=== PATIENT | male | born 1965 | race Caucasian/White ===

== ENCOUNTER 2018-04-27 06:45 | Emergency (ER) | payer BC, SELFPAY ==
[2018-04-27] VITALS (85 sets, daily range): BP systolic 92–134; BP diastolic 56–99; PULSE 50–148; RESP 11–33; TEMP 36.7; O2SAT 93–99
--- NOTE | 2018-04-27 07:16 | ED.GENADUL ---
Disposition Clinical Impression: Atrial fibrillation with rapid ventricular response, Chest pain, History of coronary artery stent placement Disposition: HOME Condition: Stable Instructions: Atrial Fibrillation (ED), Chest Pain (ED) Additional Instructions: Drink plenty of fluids and get plenty of rest. Take your regular medications as directed. Follow-up with your scheduled appointment with cardiology next week. Return immediately to the emergency department any worsening or new concerning symptoms. Medical Decision Making - EKG Data -: EKG Interpreted by Me 04/27/18 07:18 Atrial fibrillation with a rate of 108, QRS is narrow, there is no ST segment elevation - Medical Decision Making 52-year-old male presents with rapid atrial fibrillation. Stable. Placed on diltiazem drip with rate stabilization. Signed out to Dr. Renae pending further diagnostics and final disposition History of Present Illness - General Chief complaint: Chest Pain Stated complaint: CHEST PRESSURE/SOB Time Seen by Provider: 04/27/18 06:50 Source: patient, RN notes reviewed Mode of arrival: ambulatory Limitations: no limitations - History of Present Illness Initial comments: Chest pain and palpitations: 52-year-old male with a history of coronary artery disease as well as paroxysmal atrial fibrillation for which he is anticoagulated with Eliquis. He states he developed the abrupt onset of chest pressure in the substernal that has been constant, moderate, nonradiating and associated with palpitations consistent with previous episodes of atrial fibrillation. He is not otherwise recently been ill. Denies fever. No recent cough. No weight gain or peripheral swelling History of coronary artery disease, hypertension, hyperlipidemia. History of stroke with right-sided hemiplegia. Myocardial perfusion scan April 05. Moderate size, moderately intense, fixed defect in the description of RCA distribution of inferolateral wall. Ejection fraction 49%. - Related Data Lansoprazole [Prevacid] 30 mg PO DAILY 06/18/13 Nitroglycerin [Nitrostat] 1 tab SL Q5 MIN PRN X3 PRN 10/17/13 Bupropion HCl [Bupropion HCl Sr] 300 mg PO DAILY 10/16/15 Isosorbide Mononitrate [Isosorbide Mononitrate ER] 120 mg PO DAILY 10/16/15 Aspirin 81 mg PO DAILY #90 tab-cap 04/22/17 Multivitamin [Multivitamins] 1 each PO DAILY 04/28/17 Ascorbic Acid [Vitamin C] 1,000 mg PO DAILY 07/18/17 Metoprolol Succinate 25 mg PO DAILY #90 tab-cap 07/21/17 Pravastatin [Pravachol] 80 mg PO DAILY 11/17/17 Apixaban [Eliquis] 5 mg PO BID 30 Days #60 tablet 02/24/18 Sertraline [Zoloft] 25 mg PO DAILY #30 tab 03/16/18 Allergies Allergy/AdvReac Type Severity Reaction Status Date / Time atorvastatin calcium AdvReac Intermediate liver Unverified 04/28/18 10:22 [From Lipitor] problems niacin AdvReac Mild flushing Unverified 04/28/18 10:22 adhesive from monitor tabs Allergy Intermediate jones Uncoded 04/28/18 10:22 Review of Systems Other: 6 systems reviewed, otherwise negative Past Medical History - Past Medical History Medical history: AFIB, CAD, cancer (renal cell), CVA/TIA (Left MCA stroke March 2017), GERD, hyperlipidemia, hypertension Surgical history: angioplasty/stent (8 cardiac stents), appendectomy, herniorraphy, other (Carpal tunnel release, back surgery, L partial nephrectomy) Family history: CAD/UT - Social History Alcohol use: none Drug use: none General Exam - General Limitations: no limitations General appearance: alert, in no apparent distress - Head Head exam: Present: atraumatic, normocephalic - Eye Eye exam: Present: PERRL, EOMI - ENT ENT exam: Present: normal exam - Respiratory Respiratory exam: Present: normal lung sounds bilaterally. Absent: respiratory distress - Cardiovascular Cardiovascular Exam: Present: tachycardia, irregular rhythm - GI/Abdominal GI/Abdominal exam: Present: soft. Absent: distended, tenderness - Extremities Exam Extremities exam: Present: normal inspection - Neurological Exam Neurological exam: Present: alert, oriented X3 - Psychiatric Psychiatric exam: Present: normal affect, normal mood - Skin Skin exam: Present: warm, dry, intact Course Vital Signs - 24 hr 04/27/18 06:52 Temperature 36.7 C Pulse 118 H Blood Pressure 117/78 Pulse Oximetry 97
[2018-04-27 07:23] LABS: Abs Immature Grans 0.02 k/cumm (0.0-0.09); Absolute Basophil Count 0.04 k/cumm (0.0-0.2); Absolute Lymphocyte Count 2.37 k/cumm (1.2-3.4); Absolute Monocyte Count 0.72 k/cumm (0.11-0.7); Basophils % 0.4; Eosinophils % 2.2; HCT 39.7 % (40.0-50.0); HGB 13.6 g/dL (13.5-17.5); Immature Grans % 0.2; Lymphocytes % 26.5; Mean Corp. HGB Concentration 34.3 g/dL (32.0-36.0); Mean Corpuscular Hemoglobin 31.3 pg (27.0-33.0); Mean Corpuscular Volume 91.3 fL (80-95); Mean Platelet Volume 9.8 fL (8.0-11.0); Neutrophils % 62.7; Platelet Count 258 x1000/uL (130-400); RBC 4.35 m/cumm (4.50-6.00); White Blood Cell Count 8.95 k/cumm (4.4-10.8)
--- NOTE | 2018-04-27 07:24 | PDOC.ERCMPRO ---
Care Management Progress Note 04/27-Adams requested that I call his Carmen, [phone] and let her know that he is in the ED in Afib. Called Carmen with above information. Carmen stated to call her back to keep her posted.
[2018-04-27 07:36] LABS: ALT 23 U/L (12-78); AST 18 U/L (15-37); Albumin 3.4 g/dL (3.4-5.0); Alkaline Phosphatase 86 U/L (46-116); Anion Gap 9.6 mmol/L (3-11); BUN 18 mg/dL (7-18); Bilirubin, Total 0.2 mg/dL (0.2-1.0); CO2 24.4 mmol/L (21.0-32.0); CREATININE 1.17 mg/dL (0.70-1.30); Calcium 8.8 mg/dL (8.5-10.1); Chloride 104 mmol/L (98-107); Glucose 115 mg/dL (70-100); Potassium 4.1 mmol/L (3.5-5.1); Sodium 138 mmol/L (136-145); Total Protein 7.1 g/dL (6.4-8.2)
[2018-04-27] MEDS: Normal Saline 500 ML IV (07:39)
[2018-04-27 07:49] LABS: NT-proBNP 123 pg/mL
[2018-04-27 07:56] LABS: Troponin I < 0.02 ng/mL (0.00-0.06)
[2018-04-27 07:57] LABS: D-Dimer 427 ng/mlFEU (<500)
[2018-04-27 08:07] LABS: PTT Activated 31.2 sec (21.0-31.4); Prothrombin Time 9.9 sec (9.3-10.8)
--- NOTE | 2018-04-27 08:20 | DI.REPORT_ITS ---
SYMPTOM/DIAGNOSIS: CP, SOB, R/O ACUTE DISEASE PORTABLE CHEST: Comparison is made with 15 March 2018. The heart size is normal. The lungs are suboptimally inflated but appear clear. Leads overlie the chest. IMPRESSION: No acute abnormality.
[2018-04-27] MEDS: Normal Saline 1,000 ML 100 ML IV (08:40)
[2018-04-27] MEDS: MORPHine 10 MG/ML VIAL 2 MG IVP (08:42)
--- NOTE | 2018-04-27 08:51 | ED.FU_ITS ---
Disposition Clinical Impression: Atrial fibrillation with rapid ventricular response, Chest pain, History of coronary artery stent placement Disposition: HOME Condition: Stable Instructions: Atrial Fibrillation (ED), Chest Pain (ED) Additional Instructions: Drink plenty of fluids and get plenty of rest. Take your regular medications as directed. Follow-up with your scheduled appointment with cardiology next week. Return immediately to the emergency department any worsening or new concerning symptoms. Medical Decision Making - Lab Data Laboratory Tests 04/27/18 04/27/18 04/27/18 06:55 06:55 06:55 WBC RBC Hgb Hct MCV MCH MCHC RDW Plt Count MPV Immature Gran % Neutrophils % Lymphocytes % Monocytes % Eosinophils % Basophils % Absolute Neutrophils Absolute Lymphocytes Absolute Monocytes Absolute Eosinophils Absolute Basophils PT 9.9 INR 1.0 APTT 31.2 D-Dimer 427 Sodium 138 Potassium 4.1 Chloride 104 Carbon Dioxide 24.4 Anion Gap 9.6 BUN 18 Creatinine 1.17 Estimated GFR/1.73 m2 >= 60.00 Glucose 115 H Calcium 8.8 Magnesium 2.0 Total Bilirubin 0.2 AST 18 ALT 23 Alkaline Phosphatase 86 Troponin I < 0.02 NT-Pro-B Natriuret Pep 123 Total Protein 7.1 Albumin 3.4 04/27/18 06:55 WBC 8.95 RBC 4.35 L Hgb 13.6 Hct 39.7 L MCV 91.3 MCH 31.3 MCHC 34.3 RDW 14.0 Plt Count 258 MPV 9.8 Immature Gran % 0.2 Neutrophils % 62.7 Lymphocytes % 26.5 Monocytes % 8.0 Eosinophils % 2.2 Basophils % 0.4 Absolute Neutrophils 5.60 Absolute Lymphocytes 2.37 Absolute Monocytes 0.72 H Absolute Eosinophils 0.20 Absolute Basophils 0.04 PT INR APTT D-Dimer Sodium Potassium Chloride Carbon Dioxide Anion Gap BUN Creatinine Estimated GFR/1.73 m2 Glucose Calcium Magnesium Total Bilirubin AST ALT Alkaline Phosphatase Troponin I NT-Pro-B Natriuret Pep Total Protein Albumin 04/27/18 0650: 108bpm. Atrial fibrillation. Incomplete right bundle branch block. No acute ST elevation or depression. 04/27/18 1244: 56 bpm. Sinus bradycardia cardia. Incomplete right bundle branch block. No acute ST elevation or depression. - Radiology Data Radiology results: report reviewed, image reviewed CXR: negative - Medical Decision Making Please see Dr. Christy's note for initial presentation, exam and plan. Adams is a 52-year-old male with extensive cardiac history including 8 coronary stents, NM, hypertension, hyperlipidemia, atrial fibrillation on Eliquis who presented with chest and back pain and nausea since this morning at work. Noted to be in A. fib with RVR on arrival. EKG noted a rate of 108, A. fib, right bundle branch block but no acute ST elevation or depression. Troponin and d-dimer negative. Remainder of labs essentially unremarkable. Patient has had intermittent low blood pressure with systolic of 90s. Patient was given 1L IV fluids. Cardizem bolus held due to low blood pressure. Patient on a Cardizem drip at 5. Heart rate now ranging between 80s and 120s. Will continue Cardizem drip. Patient also complaining of continued chest pain without relief after 1 dose of nitro. Will continue IV fluids at 100 cc an hour. Will give a dose of morphine and start nitro drip if blood pressure tolerates. We will also add chest x-ray. 2044 -- Case discussed with hospitalist Dr. Avery -accepts patient for admission. 1015 -- Heart rate now 50s and converted to sinus. Cardizem drip stopped. Patient is still complaining of pain and nitro drip now at 10. Systolic blood pressure 110s. 1220 -- patient is complaining of return of chest pain. Will repeat an EKG and troponin now. Patient states he is followed by cardiology Dr. Saleem. . Heart rate 40s-50s which patient states is unusual for him as he is usually 60s- 70s. Systolic blood pressure 100. Will call cardiology for recommendations. Second troponin negative. EKG notes rate of 56 and sinus bradycardia and no acute ST elevation or depression. 134 --discussed with [facility] cardiology Dr. Robin -states it is reassuring with passing recent stress test negative for ischemia with noting a fixed defect, 2 negative troponins within a 12 hour period considering cardiac stress due to atrial fibrillation, this is reassuring for ruling out coronary etiology. Can consider a third troponin. Can also consider atypical causes of chest pain and consider getting a GI cocktail. Results were discussed with the patient regarding second negative troponin and EKG and discuss with cardiology and patient states he would rather go home. Patient is refusing third troponin. Patient was again offered admission and he declines. Risks of disability due to a serious cardiac pathology explained and patient fully understands and would still like to leave and demonstrates capacity to make decisions. Patient states he lives close by and will come back immediately with any concerns. Patient states he can follow-up with cardiology tomorrow morning. We discussed with Sandro from cardiology office and there is no community health agent available tomorrow but will arrange for follow-up appointment for next week. Vital stable prior to discharge. Heart rate 60. Blood pressure 115/77. Patient given GI cocktail he denies chest pain. Care Signed Out By:: Dr. Christy - Vital Signs Recent Vitals - 8H: Vital Signs - 8 hr 04/27/18 04/27/18 04/27/18 06:47 06:50 06:52 Temperature 98.1 F Pulse 118 H Respiratory 18 17 18 Rate Blood Pressure 117/78 Pulse Oximetry 99 97 97 04/27/18 04/27/18 04/27/18 07:00 07:01 07:10 Temperature Pulse 84 Respiratory 12 17 22 Rate Blood Pressure 116/77 Pulse Oximetry 93 L 94 L 95 04/27/18 04/27/18 04/27/18 07:16 07:20 07:24 Temperature Pulse 59 L Respiratory 18 23 18 Rate Blood Pressure 114/99 Pulse Oximetry 96 04/27/18 04/27/18 04/27/18 07:30 07:31 07:40 Temperature Pulse 75 Respiratory 27 H 25 H 22 Rate Blood Pressure 116/61 Pulse Oximetry 97 96 97 04/27/18 04/27/18 04/27/18 07:46 07:50 07:55 Temperature Pulse 75 75 Respiratory 27 H 33 H 21 Rate Blood Pressure 104/76 93/67 Pulse Oximetry 93 L 94 L 95 04/27/18 08:00 Temperature Pulse Respiratory 20 Rate Blood Pressure Pulse Oximetry - Continuation of Care Continuation of Care Plan: Case endorsed to follow-up on labs and imaging with plan for admission to ICU for A. fib with RVR on diltiazem drip.
--- NOTE | 2018-04-27 09:56 | NUR.NOTE ---
Nursing Note: Rhythm converted from afib to SR at 0941. HR noted to be 53, BP 105/72. Dr. Monroe notified of rhythm change and HR. Diltiazem infusion stopped per MD. Patient reports lessening of CP, now 01/03; remains substernal and in back between shoulder blades (site unchanged since arrival to ED today).
--- NOTE | 2018-04-27 12:14 | NUR.NOTE ---
Nursing Note: Patient reports pain currently 0. Was briefly back up to 2 at 1145, but back to [address] Monroe notified. Order to pause nitro infusion to assess tolerance. Nitro now off. Mr. Anne ate full [employer] lunch
[2018-04-27 13:11] LABS: Troponin I < 0.02 ng/mL (0.00-0.06)
== END 2018-04-27 14:45 | disposition home or self-care (01) ==
PROVIDERS: Emergency Medicine; Emergency Provider Physician Assistant; PCP Internal Medicine
DX: I48.91 Unspecified atrial fibrillation (principal); I47.2 Ventricular tachycardia; R07.9 Chest pain, unspecified; R00.2 Palpitations; I95.9 Hypotension, unspecified; I25.10 Atherosclerotic heart disease of native coronary artery without angina pectoris; Z95.5 Presence of coronary angioplasty implant and graft; I10 Essential (primary) hypertension; Z53.29 Procedure and treatment not carried out because of patient's decision for other reasons
CPT/HCPCS: 36415; 80053; 93005; 96361; 96365; 96366; 96367; 96375; 99285; 71045; 83735; 83880; 84484; 85025; 85379; 85610; 85730; 93010; J2270

== ENCOUNTER 2018-05-09 08:04 | Emergency (ER) | payer BC, MEDICARE, SELFPAY ==
[2018-05-09] VITALS (54 sets, daily range): BP systolic 102–123; BP diastolic 64–94; PULSE 49–66; RESP 12–24; TEMP 36.7; O2SAT 93–100
--- NOTE | 2018-05-09 08:25 | ED.GENADUL_ITS ---
Disposition Clinical Impression: Recurrent chest pain, Chronic headache Disposition: HOME Condition: Good Instructions: Chest Pain (ED), General Headache (ED) Additional Instructions: [facility] today to have your s[facility]ol prescription filled. Take your other regular medications as directed. Take your nitro that you have for your chronic chest pain as needed and directed. Follow-up with your scheduled appointment with Dr. Corral in 2 days and with cardiology on 05/25/18. Return to the emergency department with any worsening or new concerning symptoms. Medical Decision Making - Lab Data Laboratory Tests 05/09/18 05/09/18 05/09/18 08:14 08:14 12:13 WBC 9.95 RBC 4.61 Hgb 14.1 Hct 41.5 MCV 90.0 MCH 30.6 MCHC 34.0 RDW 13.9 Plt Count 237 MPV 9.7 Immature Gran % 0.2 Neutrophils % 60.2 Lymphocytes % 28.3 Monocytes % 8.7 Eosinophils % 2.1 Basophils % 0.5 Absolute Neutrophils 5.98 Absolute Lymphocytes 2.82 Absolute Monocytes 0.87 H Absolute Eosinophils 0.21 Absolute Basophils 0.05 Sodium 140 Potassium 4.4 Chloride 104 Carbon Dioxide 26.4 Anion Gap 9.6 BUN 15 Creatinine 1.04 Estimated GFR/1.73 m2 >= 60.00 Glucose 118 H Calcium 8.7 Magnesium 1.6 L Total Bilirubin 0.2 AST 15 ALT 21 Alkaline Phosphatase 74 Troponin I < 0.02 < 0.02 Total Protein 6.8 Albumin 3.3 L Lipase 147 - EKG Data -: EKG Interpreted by Nc 05/09/18 08:08 57bpm. Sinus bradycardia. No acute ST elevation or depression. No old EKG to compare. - Radiology Data Radiology results: report reviewed, image reviewed CT head: Left sphenoid sinus opacification otherwise no acute findings. Chest x-ray: Negative - Medical Decision Making 0810 -- 52-year-old male with extensive ASCVD and 8 cardiac stents, R MCA cva, Afib on eliquis, GERD, renal mass s/p L partial nephrectomy with multiple frequent ED visits to here as well as [facility] for related chest pain and headache who presents with substernal chest pain with radiation to his back and aching pain down both arms and posterior occipital headache this morning. Patient was seen here on 04/27 and had negative cardiac workup. Patient was also seen here on 04/28 and was admitted for ongoing chest pain and right-sided weakness and had negative troponins, stable EKG, negative CT a chest, negative CT head and MRI brain. They had recommended GI follow-up but patient did not follow-up yet. He had a stress test in March 2018 which noted a fixed defect but no ischemia. Patient was also seen at [facility] ED and admitted on 05/01 and had a nuclear pharmacologic stress test which noted a fixed inferior infarct but no ischemia. Patient had Ranexa and sotalol added to his medication regimen. Patient states he did not fill the sotalol and his metoprolol was stopped. He did not inform cardiology that he is not taking his sotalol. EKG today no acute ischemic changes. He appears nontoxic and in no acute distress. There is no diaphoresis. There are no focal deficits. Considering patient's extensive history, will do a cardiac workup, chest x-ray and CT head. Patient is declining MRI brain. I discussed the plan with patient, especially regarding his frequent visits for similar complaint with 2 recent negative stress tests for ischemia, multiple negative troponins, negative CT head, negative MRA brain, negative CTA chest, the consideration of follow-up with cardiology for continue monitoring of his chronic chest pain. I discussed case with care management Kathy and she will discuss with cardiology. Patient had declined nitro due to his blood pressure. His systolic blood pressure is 106. I will order patient fluids and nitro. 929 -- discussed with care management Kathy -she states Sandro from cardiology saw patient in the office this morning but there was no access service representative available. Patient had declined taking nitro at that time due to his low blood pressure. They have arrange for follow-up appointment with patient for May 25. Kathy will arrange for [facility] to help patient with his prescription for sotalol. 0934 -- labs and imaging reviewed. Troponin negative. Magnesium 1.6. Will replete. No other acute significant findings. Chest x-ray and CT head negative for acute findings. CT had noted left sphenoid sinus opacification. 0943 -- no relief of chest pain after 2 nitro. Will order GI cocktail. 1050 -- Pt sleeping on re-eval. He denies any change in his chest pain after awakening. Denies relief after GI cocktail. Pt appears comfortable. He is questioning his BP and why it fluctuates. Explained to pt that his BP has been stable here 110s/80s - review of [facility] records last week noted his BP ranged from 80s-110s/40s-80s. 1300 --second troponin negative. Patient denies any acute complaints at this time and is declining admission and would like to go home. Patient states he mainly came to make sure he was not in A. fib. His heart rate and rhythm had remained stable while here in the emergency department with a rate between 50s and 60s and normal sinus which is his baseline. He is instructed to go directly to [facility] per Kathy for his sotalol. He was encouraged that he needs to take this especially if he is concerned about his A. fib. Instructed to follow-up with his primary care doctor appointment in 2 days and cardiology appointment on 05/25 and to return here with any concerns. He also stated that he has a history of ulcer on EGD by Dr. Marinelli in the past year. He is instructed to follow-up with GI as recommended on his last admission for reevaluation of this as this could also be contributing to his chronic chest pain. He states he takes Prevacid daily. History of Present Illness - General Chief complaint: Chest Pain Stated complaint: CHEST PAIN Time Seen by Provider: 05/09/18 08:09 Source: patient Mode of arrival: ambulatory Limitations: no limitations - History of Present Illness Initial comments: Patient is a 52-year-old male well-known to the emergency department for multiple ED visits and admissions for chest pain and headache related complaints with a history of 8 cardiac stents and extensive ASCVD, A. fib on Eliquis, right MCA stroke, GERD, renal mass status post left partial nephrectomy , and chronic back pain who presents for sharp substernal and dull pressure- like chest pain with radiation to his back that started while sitting at home this morning. Pain is currently 8/10. Patient frequently has similar pain. Patient was seen here in the ED on 04/27/18 for A. fib and subsequently converted to sinus rhythm and had 2 negative troponins; patient had a stress test on 04/12 but noted a fixed defect and no ischemia and case was discussed with cardiology and patient was subsequently discharged home. Patient returned to the ED on 04/28 the following day after directed by his PCP Dr. Corral for ongoing chest pain as well as right-sided weakness and was admitted with negative troponins, stable EKG, negative CT chest negative CT head and MRI brain and was recommended for GI follow-up for recurrent chest pain. Patient also then went to [facility] ED on 05/01/18 for ongoing chest pain and was admitted with multiple negative troponins and a nuclear pharmacologic stress test which noted a fixed inferior infarct but no ischemia. Patient had Ranexa added to his medication regimen and was stopped on his metoprolol and started on sotalol. Patient states he did not fill his sotalol due to the expensive cost. Patient states he did not call cardiology at [facility] or his own access service representative Dr. jasbir Ribera to state that he did not start his sotalol. Patient today again admits to substernal chest pain with radiation to his back. He is also complaining of aching pain down both arms. He states this feels similar to his usual chest pain that he has from time to time. Patient is also complaining of posterior occipital headache that radiates around to both sides of his head. He denies blurry vision, nausea, vomiting, shortness of breath or unilateral weakness or numbness. - Related Data Lansoprazole [Prevacid] 30 mg PO DAILY 06/18/13 Nitroglycerin [Nitrostat] 1 tab SL Q5 MIN PRN X3 PRN 10/17/13 Bupropion HCl [Bupropion HCl Sr] 300 mg PO DAILY 10/16/15 Isosorbide Mononitrate [Isosorbide Mononitrate ER] 120 mg PO DAILY 10/16/15 Aspirin 81 mg PO DAILY #90 tab-cap 04/22/17 Multivitamin [Multivitamins] 1 each PO DAILY 04/28/17 Ascorbic Acid [Vitamin C] 1,000 mg PO DAILY 07/18/17 Apixaban [Eliquis] 5 mg PO BID 30 Days #60 tablet 02/24/18 Ranolazine [Ranexa] 500 mg PO BID 05/09/18 Rosuvastatin Calcium 40 mg PO DAILY 05/09/18 Sotalol [Betapace] 80 mg PO BID 05/09/18 Allergies Allergy/AdvReac Type Severity Reaction Status Date / Time atorvastatin calcium AdvReac Intermediate liver Unverified 05/09/18 08:19 [From Lipitor] problems niacin AdvReac Mild flushing Unverified 05/09/18 08:19 adhesive from monitor tabs Allergy Intermediate jones Uncoded 05/09/18 08:19 Review of Systems Constitutional: denies: chills, fever Eyes: denies: eye pain ENT: denies: ear pain, dental pain Respiratory: shortness of breath. denies: cough Cardiovascular: chest pain. denies: dyspnea on exertion Gastrointestinal: denies: abdominal pain, nausea, vomiting Genitourinary: denies: urgency, dysuria, frequency Musculoskeletal: denies: back pain Skin: denies: rash, lesions Neurological: headache. denies: weakness, numbness Past Medical History - Past Medical History Medical history: AFIB, CAD, cancer (renal cell), CVA/TIA (Left MCA stroke March 2017), GERD, hyperlipidemia, hypertension Surgical history: angioplasty/stent (8 cardiac stents), appendectomy, herniorraphy, other (Carpal tunnel release, back surgery, L partial nephrectomy) Family history: CAD/UT - Social History Smoking status: current everyday smoker Alcohol use: none Drug use: none General Exam - General Limitations: no limitations General appearance: alert, in no apparent distress - Eye Eye exam: Present: PERRL, EOMI - ENT ENT exam: Present: normal orophraynx, mucous membranes moist - Neck Neck exam: Present: normal inspection - Respiratory Respiratory exam: Present: normal lung sounds bilaterally. Absent: respiratory distress, wheezes, rales, rhonchi, stridor - Cardiovascular Cardiovascular Exam: Present: normal rhythm, bradycardia - GI/Abdominal GI/Abdominal exam: Present: soft, normal bowel sounds. Absent: distended, tenderness, guarding, rebound, rigid - Neurological Exam Neurological exam: Present: alert, oriented X3, CN II-XII intact. Absent: motor sensory deficit - Psychiatric Psychiatric exam: Present: normal affect - Skin Skin exam: Present: warm, dry, intact Course Vital Signs - 24 hr 05/09/18 05/09/18 08:12 08:17 Temperature 98.1 F Pulse 58 L Respiratory 16 21 Rate Blood Pressure 115/70 Pulse Oximetry 97
--- NOTE | 2018-05-09 08:32 | DI.RPTCT_ITS ---
SYMPTOM/DIAGNOSIS: HEADACHE, BASE OF SKULL, H/O RT MCA STROKE, R/O ACUTE CVA NONCONTRAST HEAD CT: Comparison is made with 28 Apr 2018. No intracranial hemorrhage, mass or infarct is seen. There is no evidence of skull fracture. The ventricles are normal in size. There is subtotal opacification of the left sphenoid sinus. There is a small amount of mucus retention noted in the right maxillary sinus, partially included on the exam. The mastoid air cells appear clear. The visualized portions of the orbits are unremarkable. IMPRESSION: Sinus disease. No acute intracranial abnormality.
[2018-05-09 08:36] LABS: Abs Immature Grans 0.02 k/cumm (0.0-0.09); Absolute Basophil Count 0.05 k/cumm (0.0-0.2); Absolute Eosinophil Count 0.21 k/cumm (0.0-0.7); Absolute Lymphocyte Count 2.82 k/cumm (1.2-3.4); Absolute Monocyte Count 0.87 k/cumm (0.11-0.7); Absolute Neutrophil Count 5.98 k/cumm (1.2-6.7); Basophils % 0.5; Eosinophils % 2.1; HCT 41.5 % (40.0-50.0); HGB 14.1 g/dL (13.5-17.5); Immature Grans % 0.2; Lymphocytes % 28.3; Mean Corpuscular Hemoglobin 30.6 pg (27.0-33.0); Mean Platelet Volume 9.7 fL (8.0-11.0); Monocytes % 8.7; Neutrophils % 60.2; Platelet Count 237 x1000/uL (130-400); RBC 4.61 m/cumm (4.50-6.00); RBC Distribution Width 13.9 % (11.8-14.1); White Blood Cell Count 9.95 k/cumm (4.4-10.8)
[2018-05-09 08:57] LABS: ALT 21 U/L (12-78); AST 15 U/L (15-37); Albumin 3.3 g/dL (3.4-5.0); Alkaline Phosphatase 74 U/L (46-116); Anion Gap 9.6 mmol/L (3-11); BUN 15 mg/dL (7-18); Bilirubin, Total 0.2 mg/dL (0.2-1.0); CO2 26.4 mmol/L (21.0-32.0); CREATININE 1.04 mg/dL (0.70-1.30); Calcium 8.7 mg/dL (8.5-10.1); Chloride 104 mmol/L (98-107); Glucose 118 mg/dL (70-100); Lipase 147 U/L (73-393); Magnesium 1.6 mg/dL (1.8-2.4); Potassium 4.4 mmol/L (3.5-5.1); Sodium 140 mmol/L (136-145); Total Protein 6.8 g/dL (6.4-8.2)
[2018-05-09 09:00] LABS: Troponin I < 0.02 ng/mL (0.00-0.06)
--- NOTE | 2018-05-09 09:21 | DI.REPORT_ITS ---
SYMPTOM/DIAGNOSIS: CHEST PAIN, R/O ACUTE DISEASE PA AND LATERAL CHEST: Comparison is made with 27 April 2018. The heart size is normal. Coronary artery stents are noted. The lungs appear clear. No infiltrate, effusion or pulmonary edema is seen. IMPRESSION: No acute abnormality.
[2018-05-09] MEDS: Normal Saline 500 ML IV (09:28)
[2018-05-09] MEDS: MAGNESIUM SULFATE 2 GM/50 ML BAG IVPB (09:39)
--- NOTE | 2018-05-09 09:40 | PDOC.ERCMPRO ---
Care Management Progress Note 05/09-Dr. Monroe requested assistance with medication and f/u appts for Adams. Adams presented to the ED today for chest pain. [facility] and spoke with Sandro. Sandro stated that Adams came to the office this am stating he had chest pain that radiated down his right arm so she sent him to the ED. Sandro states that Adams has an appt with Dr. Saleem on May 25 and that is the soonest she can get him in. Sandro stated that Adams did not fill one of his cardiac meds as the copay was $176 and he states he can not afford this. Sandro also stated that Adams will not take nitro. Met with Adams. Adams told this CM about his copay and also stated that he does not take the nitro when he has chest pain because of his blood pressure. Adams also stated that he is still smoking. Discussed [facility] [employer] to see if he could get some assistance with the copay for the medication. Gave [employer] and Adams states he will go over and talk to them. Adams has Blue [employer] Blue Shield through his 's work. He also has Medicare Part A. Adams states his copays are normally $5-10 but this new med is expensive. Adams has an appt with Dr. Corral (PCP) on and with Dr. Saleem (Cardiology) on the . Discussed with Adams that he needs to communicate the medication expense with Dr. Corral to see if there is a different medication he could take that would be more affordable. Dr. Monroe aware of the above. Adams has this CM's contact information if further assistance is needed.
[2018-05-09] MEDS: Aspirin 81 MG CHEW 243 MG PO (10:18)
[2018-05-09 12:43] LABS: Troponin I < 0.02 ng/mL (0.00-0.06)
== END 2018-05-09 13:15 | disposition home or self-care (01) ==
PROVIDERS: Emergency Provider Physician Assistant; PCP Internal Medicine
DX: R07.9 Chest pain, unspecified (principal); R51 Headache; E83.42 Hypomagnesemia; I25.10 Atherosclerotic heart disease of native coronary artery without angina pectoris; Z95.5 Presence of coronary angioplasty implant and graft; I48.91 Unspecified atrial fibrillation; Z79.01 Long term (current) use of anticoagulants; I10 Essential (primary) hypertension; F17.210 Nicotine dependence, cigarettes, uncomplicated
CPT/HCPCS: 36415; 80053; 83690; 93005; 96361; 96365; 96366; 99285; 70450; 71046; 83735; 84484; 85025; 93010

== ENCOUNTER 2018-06-05 11:13 | Emergency (ER) | payer BC, SELFPAY ==
[2018-06-05 11:23] VITALS: BP 138/71; PULSE 71; RESP 18; TEMP 37; O2SAT 99
[2018-06-05 11:31] VITALS: RESP 16
[2018-06-05] MEDS: Aspirin 81 MG CHEW 243 MG CH (11:39)
--- NOTE | 2018-06-05 11:39 | DI.RAD_ITS ---
SYMPTOMS/DIAGNOSIS: CHEST PAIN, ? ACUTE DISEASE PA AND LATERAL CHEST: Comparison is made with April,. The heart size is within normal limits. Coronary artery stents are again noted. The lungs are suboptimally inflated on both views. No focal infiltrate or effusion is seen. IMPRESSION: No acute abnormality.
[2018-06-05 11:52] LABS: Abs Immature Grans 0.03 k/cumm (0.0-0.09); Absolute Basophil Count 0.05 k/cumm (0.0-0.2); Absolute Eosinophil Count 0.14 k/cumm (0.0-0.7); Absolute Lymphocyte Count 2.93 k/cumm (1.2-3.4); Absolute Monocyte Count 0.69 k/cumm (0.11-0.7); Absolute Neutrophil Count 5.68 k/cumm (1.2-6.7); Basophils % 0.5; Eosinophils % 1.5; HCT 40.2 % (40.0-50.0); HGB 13.6 g/dL (13.5-17.5); Immature Grans % 0.3; Lymphocytes % 30.8; Mean Corp. HGB Concentration 33.8 g/dL (32.0-36.0); Mean Corpuscular Hemoglobin 30.7 pg (27.0-33.0); Mean Corpuscular Volume 90.7 fL (80-95); Mean Platelet Volume 9.7 fL (8.0-11.0); Monocytes % 7.2; Neutrophils % 59.7; Platelet Count 256 x1000/uL (130-400); RBC 4.43 m/cumm (4.50-6.00); RBC Distribution Width 13.8 % (11.8-14.1); White Blood Cell Count 9.52 k/cumm (4.4-10.8)
[2018-06-05 12:04] LABS: INR 1.1 (1.0-3.5); PTT Activated 30.3 sec (21.0-31.4); Prothrombin Time 10.4 sec (9.3-10.8)
[2018-06-05 12:05] LABS: ALT 21 U/L (12-78); AST 16 U/L (15-37); Albumin 3.5 g/dL (3.4-5.0); Alkaline Phosphatase 83 U/L (46-116); Anion Gap 8.7 mmol/L (3-11); BUN 17 mg/dL (7-18); Bilirubin, Total 0.3 mg/dL (0.2-1.0); CO2 27.3 mmol/L (21.0-32.0); CREATININE 1.03 mg/dL (0.70-1.30); Calcium 8.9 mg/dL (8.5-10.1); Chloride 104 mmol/L (98-107); Glucose 96 mg/dL (70-100); Magnesium 1.8 mg/dL (1.8-2.4); Sodium 140 mmol/L (136-145); Total Protein 7.5 g/dL (6.4-8.2)
[2018-06-05 12:11] LABS: Troponin I < 0.02 ng/mL (0.00-0.06)
--- NOTE | 2018-06-05 12:50 | W.ED.GENAD ---
Discharge Plan Disposition Patient Disposition: HOME Condition: Improving Discharge Details Chief Complaint: Chest Pain Clinical Impression: Chronic chest pain Primary Care Provider: Delonte Corral ED Provider: Beata Monroe Home Meds and New Rx's Prescriptions: New amlodipine 5 mg tablet 5 mg PO DAILY Qty: 30 RF: 0 Continue aspirin 81 MG tablet,chewable 81 mg PO DAILY Qty: 90 RF: 4 ascorbic acid (vitamin C) [Vitamin C] 1,000 MG tablet 1,000 mg PO DAILY RF: 0 apixaban [Eliquis] 5 MG tablet 5 mg PO BID 30 Days Qty: 60 RF: 4 lansoprazole [Prevacid SoluTab] 30 MG tablet,disintegrat, delay rel 30 mg PO DAILY RF: 0 nitroglycerin [Nitrostat] 0.4 MG tablet, sublingual 1 tab Sublingual Q5 MIN PRN X3 PRNRF: 0 bupropion HCl 150 MG tablet extended release 12 hr 300 mg PO DAILY RF: 0 isosorbide mononitrate 120 MG tablet extended release 24 hr 120 mg PO DAILY RF: 0 multivitamin 1 EACH capsule 1 ea PO DAILY RF: 0 Rosuvastatin Calcium 40 MG tablet 40 mg PO DAILY RF: 0 sotalol [Betapace] 80 MG tablet 80 mg PO BID RF: 0 biotin 800 mcg Tablet 1 tab PO DAILY RF: 0 Discharge Instructions Instructions: Chest Pain (ED), Chronic Pain (ED) Additional Instructions: Take your regular medications as directed. Start taking the amlodipine as directed. Be sure to check your blood pressure while you are taking this, as this may lower your blood pressure in addition to your other medications. You will receive a call from cardiology specialty clinics regarding a follow-up appointment within the next 2 weeks with cardiology. Follow-up with your scheduled EGD with surgery this month. Return to the emergency department any worsening or new concerning symptoms. Discharge Data Discharge Date/Time-TO BE ENTERED AT DEPARTURE: 06/05/18 15:19 Discharge Physician: Beata Monroe Medical Decision Making MDM Narrative Medical decision making narrative: Patient is a 52-year-old male with history of ASCVD, right MCA CVA, A. fib on Eliquis, and 8 cardiac stents well-known to the emergency department for frequent ED visits for chest pain who presents with his usual substernal chest pain since 730 this morning. He had a stress test in March and April 2018 was noted a fixed defect but no acute ischemia. He is followed by cardiology Dr. Saleem. Patient states he was sitting when the pain started. No relief with nitro at home. Vitals within normal limits on arrival. Patient took baby aspirin at home and given remainder of aspirin here on arrival. Cardiac workup ordered on arrival. 1130 -- EKG notes a rate of 56, sinus, no acute ST elevation or depression, QTc 417. QRS 102. 1230 --labs reviewed and unremarkable. Pain still 5/10. Will order a dose of nitro. Patient is agreeable to stay for a second troponin. Will call cardiology for recommendations. 1345 --patient denies any relief with nitro and is declining a second nitro. Patient is to headache after nitro and is requesting food. Will order a tray. Second troponin due at 230. 1420 --discussed with cardiology Dr. Chino, as patient is having pain at rest, consideration could be for vasospasm. Also have to consider GI etiology. Patient does have a history of peptic ulcer and has had an EGD with Dr. Marinelli within the past year. Would recommend starting a low-dose Norvasc 2.5 mg daily which could be helpful for vasospasm. Consideration may also be for another cath or stent which does not need to be done emergently but would be more for cardiology to consider. EKG and troponin here negative is reassuring per Dr. Chino to rule out acute cardiac etiology If second troponin negative, okay for discharge home and for follow-up with cardiology within 2 weeks. 1500 --second troponin negative. Patient denies any chest pain at present and is requesting to go home. Patient states he has taken amlodipine in the past before and has tolerated. He states he does not remember why he was taken off of it by Dr. Saleem. Will send home with prescription for amlodipine. Patient is instructed to take his blood pressure daily to make sure he is not hypotensive by the addition of the amlodipine. He is instructed to drink plenty of fluids. We will arrange for an outpatient appointment with cardiology. [facility] cardiac Cath report from October 2017 noted 2 vessel coronary artery disease of left circumflex and RCA and had recommended medical therapy. 1510 --discussed with specialty clinics cardiology - they will call patient to arrange for a follow-up appointment within the next 2 weeks. They called patient while still in the emergency department and he has an appointment them on June 22. Patient also states that he has an appointment with surgery this month for repeat EGD. I explained to patient that this is beneficial to rule out an additional etiology of his chronic chest pain. Patient is ambulatory around the ED and appears in no acute distress and he denies any pain at present. Lab Data Lab Results 06/05/18 06/05/18 06/05/18 Range/Units 11:35 11:35 11:35 WBC 9.52 (4.4-10.8) k/cumm RBC 4.43 L (4.50-6.00) m/cumm Hgb 13.6 (13.5-17.5) g/dL Hct 40.2 (40.0-50.0) % MCV 90.7 (80-95) fL MCH 30.7 (27.0-33.0) pg MCHC 33.8 (32.0-36.0) g/dL RDW 13.8 (11.8-14.1) % Plt Count 256 (130-400) x1000/uL MPV 9.7 (8.0-11.0) fL Immature Gran % 0.3 Neutrophils % 59.7 Lymphocytes % 30.8 Monocytes % 7.2 Eosinophils % 1.5 Basophils % 0.5 Absolute Neutrophils 5.68 (1.2-6.7) k/cumm Absolute Lymphocytes 2.93 (1.2-3.4) k/cumm Absolute Monocytes 0.69 (0.11-0.7) k/cumm Absolute Eosinophils 0.14 (0.0-0.7) k/cumm Absolute Basophils 0.05 (0.0-0.2) k/cumm PT 10.4 (9.3-10.8) sec INR 1.1 (1.0-3.5) APTT 30.3 (21.0-31.4) sec Sodium 140 (136-145) mmol/L Potassium 4.0 (3.5-5.1) mmol/L Chloride 104 (98-107) mmol/L Carbon Dioxide 27.3 (21.0-32.0) mmol/L Anion Gap 8.7 (3-11) mmol/L BUN 17 (7-18) mg/dL Creatinine 1.03 (0.70-1.30) mg/dL Estimated GFR/1.73 m2 >= 60.00 (mL/min/1.73m2) Glucose 96 (70-100) mg/dL Calcium 8.9 (8.5-10.1) mg/dL Magnesium 1.8 (1.8-2.4) mg/dL Total Bilirubin 0.3 (0.2-1.0) mg/dL AST 16 (15-37) U/L ALT 21 (12-78) U/L Alkaline Phosphatase 83 (46-116) U/L Troponin I < 0.02 (0.00-0.06) ng/mL Total Protein 7.5 (6.4-8.2) g/dL Albumin 3.5 (3.4-5.0) g/dL HPI - General Adult General Mode of arrival: ambulatory. Date/Time Provider Initiated Documentation: 06/05/18 11:31. Limitations to Documentation: no limitations. Information obtained by: patient. HPI Narrative: Patient is a 52-year-old male with a history of ASCVD, 8 cardiac stents, right MCA CVA, A. fib on Eliquis who presents with a complaint of substernal chest pressure with radiation to his back since 7:30 AM started while sitting. States the pain is currently 5/10. States he was lifting firewood prior to the onset of pain but had no pain while exerting himself. He admits to intermittent dizziness but not at present. He denies nausea, vomiting, shortness of breath. He took one nitro without relief. States this feels like his usual chest pain that he has often. Past medical history: Atrial fibrillation, ASCVD, right MCA CVA Surgical history: Partial nephrectomy, hernia, 8 cardiac stents Social history: Tobacco, denies alcohol or drug use. Medications: See list Allergies: See list PCP: Dr. Corral Related Data Home Medications Medication Instructions Recorded Confirmed lansoprazole [Prevacid SoluTab] 30 mg PO DAILY 06/18/13 06/05/18 nitroglycerin [Nitrostat] 1 tab SUBLINGUAL Q5 MIN PRN X3 PRN 10/17/13 06/05/18 bupropion HCl 300 mg PO DAILY 10/16/15 06/05/18 isosorbide mononitrate 120 mg PO DAILY 10/16/15 06/05/18 multivitamin 1 ea PO DAILY 04/28/17 06/05/18 ascorbic acid (vitamin C) [Vitamin 1,000 mg PO DAILY 07/18/17 06/05/18 C] Rosuvastatin Calcium 40 mg PO DAILY 05/09/18 06/05/18 sotalol [Betapace] 80 mg PO BID 05/09/18 06/05/18 biotin 1 tab PO DAILY 06/05/18 06/05/18 Previous Rx's Medication Instructions Recorded amlodipine 5 mg PO DAILY #30 tab 06/05/18 Allergies Allergy/AdvReac Type Severity Reaction Status Date / Time atorvastatin calcium AdvReac Intermediate liver Unverified 06/05/18 11:42 [From Lipitor] problems niacin AdvReac Mild flushing Unverified 06/05/18 11:42 adhesive from monitor tabs Allergy Intermediate jones Uncoded 06/05/18 11:42 General Stated Complaint: Chest Pain MARQUIS: 2 Review of Systems Review of Systems All systems reviewed & are unremarkable except as noted in HPI and below Constitutional Denies chills, Denies excessive sweating, Denies fatigue, Denies fever(s), Denies weakness and Denies weight loss Eyes Patient Reports system reviewed and no additional complaints, except as docu and Denies blurry vision ENT Denies vertigo, Denies dizziness, Denies otalgia, Denies nasal congestion, Denies sore throat and Denies throat swelling Cardiovascular Reports chest pain, Denies syncope, Denies rapid heart rate and Denies dyspnea Respiratory Denies dyspnea Gastrointestinal Denies abdominal pain, Denies diarrhea and Denies vomiting Genitourinary Denies hematuria, Denies dysuria and Denies flank pain Musculoskeletal Denies back pain and Denies joint swelling Integumentary/Breasts Denies lesions and Denies rash Neurologic Denies behavioral changes, Denies confusion, Denies vertigo, Denies dizziness, Denies syncope and Denies weakness Psychiatric Denies behavioral changes, Denies confusion and Denies depression Endocrine Denies excessive sweating and Denies fatigue Hematologic/Lymphatic Denies easy bruising and Denies lymphadenopathy Allergic/Immunologic Denies throat swelling [facility] Medical History Atrial fibrillation (Chronic) Anemia Back pain, chronic Chest pain Coronary artery disease Depression with anxiety Dysesthesia Dyslipidemia Dyspepsia Esophagitis Gastritis Hemiplegia History of kidney cancer Hx of adenomatous polyp of colon Ischemic stroke Pulmonary nodules Sleep apnea Tobacco use Social History Smoking/Tobacco Use Status: Current every day alcohol intake: never substance use type: does not use Surgical History Colonoscopy - MAC (08/03/17) EGD - MAC (08/03/17) Partial Nephrectomy Repair of inguinal hernia cardiac cath Exam Const General: cooperative and healthy appearing Orientation: alert and awake HENMT Head: normal to inspection Ears: hearing grossly normal bilaterally, external ears normal and TM's normal bilaterally General nose exam: external nose normal Face and sinus: normal facial exam Mouth: oral mucosae normal Teeth and gingiva: dentition normal Eyes General: appearance normal, both eyes and all related structures Eyelids: eyelids normal EOM: EOM intact bilaterally Neck Neck: normal visual inspection Lymphatic: no lymphadenopathy noted Chest Chest: normal inspection of the chest Resp Effort & Inspection: normal respiratory effort and able to speak in complete sentences Auscultation: clear to auscultation bilaterally Cardio Rate: regular rate Rhythm: regular rhythm GI Inspection: normal to inspection Palpation: soft, not firm, no guarding, no hepatosplenomegaly, no masses and nontender Auscultation: normal bowel sounds Skin General skin exam: no rashes or lesions noted Neuro General: alert and awake Cognition: normal cognition Speech: speech normal Gait: normal gait Motor: muscle tone normal throughout Sensory Exam: no sensory deficits noted Extrem General: normal to inspection, full ROM, normal capillary refill and no edema Psych Appearance: grossly normal Mental Status: mental status grossly normal Speech and Movement: speech and movement normal Affect: normal affect Thought Process: normal Course Vital Signs Temperature 98.6 F 06/05/18 11:23 Pulse 71 06/05/18 11:23 Respiratory Rate 18 06/05/18 11:23 Blood Pressure 138/71 06/05/18 11:23 Pulse Oximetry 99 06/05/18 11:23 Temperature 98.6 F 06/05/18 11:23 Pulse 71 06/05/18 11:23 Respiratory Rate 16 06/05/18 11:31 Blood Pressure 138/71 06/05/18 11:23 Pulse Oximetry 99 06/05/18 11:23 Lab/Test Results Lab/Test Results: Laboratory Tests 06/05/18 06/05/18 06/05/18 11:35 11:35 11:35 WBC 9.52 RBC 4.43 L Hgb 13.6 Hct 40.2 MCV 90.7 MCH 30.7 MCHC 33.8 RDW 13.8 Plt Count 256 MPV 9.7 Immature Gran % 0.3 Neutrophils % 59.7 Lymphocytes % 30.8 Monocytes % 7.2 Eosinophils % 1.5 Basophils % 0.5 Absolute Neutrophils 5.68 Absolute Lymphocytes 2.93 Absolute Monocytes 0.69 Absolute Eosinophils 0.14 Absolute Basophils 0.05 PT 10.4 INR 1.1 APTT 30.3 Sodium 140 Potassium 4.0 Chloride 104 Carbon Dioxide 27.3 Anion Gap 8.7 BUN 17 Creatinine 1.03 Estimated GFR/1.73 m2 >= 60.00 Glucose 96 Calcium 8.9 Magnesium 1.8 Total Bilirubin 0.3 AST 16 ALT 21 Alkaline Phosphatase 83 Troponin I < 0.02 Total Protein 7.5 Albumin 3.5
--- NOTE | 2018-06-05 13:36 | NUR.NOTE ---
Nursing Note:patient declines second dose of nitro despite still having chest pressure. requests meal. md notified, per vo, meal tray ordered.
--- NOTE | 2018-06-05 13:39 | NUR.NOTE ---
Nursing Note: patient repotrs heart rate 'suddenly dropped' from high fifties to high forties, low fifties, now chest pain is 1/10. notified
[2018-06-05 14:39] LABS: Troponin I < 0.02 ng/mL (0.00-0.06)
[2018-06-05 16:22] VITALS: BP 138/71; PULSE 71; RESP 16; TEMP 37; O2SAT 99
== END 2018-06-05 15:19 | disposition home or self-care (01) ==
PROVIDERS: Emergency Medicine; Emergency Provider Physician Assistant; PCP Internal Medicine
DX: R07.9 Chest pain, unspecified (principal); G89.29 Other chronic pain; Z79.01 Long term (current) use of anticoagulants; I25.10 Atherosclerotic heart disease of native coronary artery without angina pectoris; Z95.5 Presence of coronary angioplasty implant and graft
CPT/HCPCS: 36415; 80053; 93005; 99285; 71046; 83735; 84484; 85025; 85610; 85730; 93010

== ENCOUNTER 2018-06-15 07:52 | Day surgery (SDC) | payer BC, SELFPAY ==
--- NOTE | 2018-06-15 06:55 | ROE_ITS ---
Date of service: 06/15/18 Operative Note DATE OF PROCEDURE: 06/15/18 PRE-OP DIAGNOSIS: GERD POST-OP DIAGNOSIS: same PROCEDURE: EGD SURGEON: Brianne Marinelli ANESTHESIA: MAC (Meri Gautam CRNA) ESTIMATED BLOOD LOSS: 5 COMPLICATIONS: None Patient was transported to: same day Patient's condition: stable Indications: Mr. Anne is a pleasant 52 year old male with a history of chest pain. Cardiac workup has been done. I was asked to do another EGD due to history of GERD. His last EGD in July of last year showed minimal inflammation. Findings: Normal stomach and esophagus Procedure Description: After risks benefits and complications of the procedure were reviewed with the patient he was taken to the procedure room and placed in a supine position. Monitors were applied and a timeout was done. The patient' s name date of procedure type allergies medications and metal in his body were all reviewed. A bite-block was placed and the patient was sedated. Once sedated and comfortable the gastroscope was introduced and advanced through the oropharynx which was normal into the esophagus. The scope was advanced through the esophagus which was normal into the stomach. The GE junction was noted to be at 40 cm. The Z line was regular and there was no inflammation noted. Scope was advanced through the stomach into the duodenum. The duodenum was normal and the scope was retracted back into the stomach. The stomach was noted to be normal. The scope was retroflexed the cardia and fundus were normal. The scope was straightened and pulled back into the esophagus and removed. The patient was woken up and a bite block was removed. Once a week he was taken back to same day surgery in stable condition.
--- NOTE | 2018-06-15 06:56 | PDOC.DSDIS_ITS ---
Discharge Plan Disposition Patient Disposition: HOME Condition: Fair Discharge Details Reason For Visit: procedure Attending Provider: Brianne Marinelli Primary Care Provider: Delonte Corral Home Meds and New Rx's Prescriptions: Continue aspirin 81 MG tablet,chewable 81 mg PO DAILY Qty: 90 RF: 4 ascorbic acid (vitamin C) [Vitamin C] 1,000 MG tablet 1,000 mg PO DAILY RF: 0 apixaban [Eliquis] 5 MG tablet 5 mg PO BID 30 Days Qty: 60 RF: 4 lansoprazole [Prevacid SoluTab] 30 MG tablet,disintegrat, delay rel 30 mg PO DAILY RF: 0 nitroglycerin [Nitrostat] 0.4 MG tablet, sublingual 1 tab Sublingual Q5 MIN PRN X3 PRNRF: 0 bupropion HCl 150 MG tablet extended release 12 hr 300 mg PO DAILY RF: 0 isosorbide mononitrate 120 MG tablet extended release 24 hr 120 mg PO DAILY RF: 0 multivitamin 1 EACH capsule 1 ea PO DAILY RF: 0 Rosuvastatin Calcium 40 MG tablet 40 mg PO DAILY RF: 0 sotalol [Betapace] 80 MG tablet 80 mg PO BID RF: 0 biotin 800 mcg Tablet 1 tab PO DAILY RF: 0 amlodipine 5 mg tablet 5 mg PO DAILY Qty: 30 RF: 0 Discharge Instructions Instructions: Upper Endoscopy (DC) Additional Instructions: Findings: Normal stomach and esophagus Follow up: with your Primary care physician New Medications: none Please call if you develop: fevers >101.5 Nausea or Vomiting Abdominal pain that is not transient 1. Because there will be medication in your system for the next 24 hours, you may feel a little sleepy. Your coordination will be affected. Therefore: a. Do not drive or operate dangerous equipment for 24 hours. b. Do not drink alcohol beverages for 24 hours (not even beer). c. Plan to go home and rest for the day. 2. Generally there are no restrictions on your activity after a day or so has gone by, but you may feel a bit fatigued for a few days. 3 After you arrive home you may have a light meal and return to a normal diet as you can tolerate it without feeling sick to your stomach. 4. After surgery, you may feel pain or discomfort. This should be only transient , but if it persists please contact your doctor. 5. If there are any questions regarding the findings of your procedure, please feel free to contact your doctor. 6. If you are unable to contact your doctor with a problem, contact the hospital at [phone]. 7. Continue all your regular medications unless directed otherwise. I understand the above instructions and have no questions. Signature of Patient or Responsible Adult Escort Date/Time Name of Responsible Adult Escort Signature of Nurse Date/Time Activity:: Activity as Tolerated Diet:: Heart Healthy Discharge Orders Discharge Orders: Discharge Order (Routine); Ordered 06/15/18 Ordered By: Brianne Marinelli
[2018-06-15 08:49] VITALS: BP 122/73; PULSE 58; RESP 16; TEMP 36.3; O2SAT 97
[2018-06-15] MEDS: Lactated Ringers 1,000 ML 80 ML IV (08:55)
[2018-06-15 10:05] VITALS: BP 105/59; PULSE 54; RESP 18; TEMP 36.4; O2SAT 99
== END 2018-06-15 10:37 | disposition home or self-care (01) ==
LOC: SUR 07:52
PROVIDERS: PCP Internal Medicine; Visit Provider Surgery
PROC: 0DJ68ZZ Inspection of Stomach, Via Natural or Artificial Opening Endoscopic (ICD-10-PCS; CPT 43235; principal; 2018-06-15 09:15)
DX: K21.9 Gastro-esophageal reflux disease without esophagitis (principal); Z95.5 Presence of coronary angioplasty implant and graft; R07.9 Chest pain, unspecified
CPT/HCPCS: 43235

== ENCOUNTER 2018-06-20 12:22 | Emergency (ER) | payer BC, SELFPAY ==
[2018-06-20] VITALS (30 sets, daily range): BP systolic 99–122; BP diastolic 65–100; PULSE 51–76; RESP 13–23; TEMP 37.1; O2SAT 92–96
--- NOTE | 2018-06-20 13:14 | W.ED.GENAD ---
Discharge Plan Disposition Patient Disposition: AGAINST MEDICAL ADVICE Discharge Details Chief Complaint: Chest Pain Clinical Impression: Chest pain Primary Care Provider: Delonte Corral ED Provider: Vinh Barton Home Meds and New Rx's Prescriptions: Continue aspirin 81 MG tablet,chewable 81 mg PO DAILY Qty: 90 RF: 4 ascorbic acid (vitamin C) [Vitamin C] 1,000 MG tablet 1,000 mg PO DAILY RF: 0 apixaban [Eliquis] 5 MG tablet 5 mg PO BID 30 Days Qty: 60 RF: 4 lansoprazole [Prevacid SoluTab] 30 MG tablet,disintegrat, delay rel 30 mg PO DAILY RF: 0 nitroglycerin [Nitrostat] 0.4 MG tablet, sublingual 1 tab Sublingual Q5 MIN PRN X3 PRNRF: 0 bupropion HCl 150 MG tablet extended release 12 hr 300 mg PO DAILY RF: 0 isosorbide mononitrate 120 MG tablet extended release 24 hr 120 mg PO DAILY RF: 0 multivitamin 1 EACH capsule 1 ea PO DAILY RF: 0 Rosuvastatin Calcium 40 MG tablet 40 mg PO DAILY RF: 0 sotalol [Betapace] 80 MG tablet 80 mg PO BID RF: 0 biotin 800 mcg Tablet 1 tab PO DAILY RF: 0 amlodipine 5 mg tablet 5 mg PO DAILY Qty: 30 RF: 0 Discharge Instructions Additional Instructions: You are leaving AGAINST MEDICAL ADVICE. You may have life-threatening or lifestyle modifying disease that will go undiagnosed and untreated. Please return to the emergency department at any time for further workup and treatment. Please follow-up with your toll mechanic as scheduled. Referrals: Rachael Fuller MD [MD CONSULTING PHYSICIAN] - Delonte Corral MD [Primary Care Provider] - Medical Decision Making 13:20 --52-year-old male with multiple medical problems including atrial fibrillation on Eliquis, right MCA CVA, coronary artery disease status post stent, here with chest pain. ECG reviewed and interpreted by me: Sinus rhythm, 75 bpm, frequent PACs, normal axis, no STEMI, nondiagnostic. Consider ACS - plan to check troponin. Consider aortic dissection - plan to CTA chest. 14:30 --CTA of the chest interpreted by radiology: Negative, no dissection or PE. 15:30 --Initial troponin negative. Plan for second troponin, repeat ECG and further diagnostic testing. Patient reassessed and continues to have mild to moderate pain. Plan for nitroglycerin. I explained my plan to the patient and patient refused further treatment and wishes to leave AGAINST MEDICAL ADVICE. I explained that patient may have life-threatening her lifestyle modifying disease that would go undiagnosed and untreated. Patient verbalized understanding of my concern. Patient has decisional making capacity to provide informed refusal of treatment. Patient plans to take his prescribed nitroglycerin when he gets home and to follow-up as scheduled with his toll mechanic on . He was instructed to return to the emergency department at anytime for further workup and treatment should he desire. HPI General Mode of arrival: ambulatory. Date/Time Provider Initiated Documentation: 06/20/18 12:43. Limitations to Documentation: no limitations. Information obtained by: patient. HPI Narrative: 52-year-old male with history of multiple medical problems including atrial fibrillation on Eliquis, right MCA CVA, coronary artery disease, status post 8 cardiac stents, [facility] cardiac catheterization report from October 2017 noted 2 vessel coronary artery disease of left circumflex and RCA and medical therapy was recommended, well-known to [facility] emergency department, seen here on 06/05/2018 and had 2 negative troponins and was instructed to follow-up with cardiology, here today with chest pain. Pain started around 1030 this morning. Pain described as an ache. Pain localized to central chest with some radiation to his back. Pain has been constant. Pain rated 6/10. No modifiers. No associated shortness of breath. Related Data Home Medications Medication Instructions Recorded Confirmed lansoprazole [Prevacid SoluTab] 30 mg PO DAILY 06/18/13 06/20/18 nitroglycerin [Nitrostat] 1 tab SUBLINGUAL Q5 MIN PRN X3 PRN 10/17/13 06/20/18 bupropion HCl 300 mg PO DAILY 10/16/15 06/20/18 isosorbide mononitrate 120 mg PO DAILY 10/16/15 06/20/18 aspirin 81 mg PO DAILY #90 tab-cap 04/22/17 06/20/18 multivitamin 1 ea PO DAILY 04/28/17 06/20/18 ascorbic acid (vitamin C) [Vitamin 1,000 mg PO DAILY 07/18/17 06/20/18 C] apixaban [Eliquis] 5 mg PO BID 30 Days #60 tab 02/24/18 06/20/18 Rosuvastatin Calcium 40 mg PO DAILY 05/09/18 06/20/18 sotalol [Betapace] 80 mg PO BID 05/09/18 06/20/18 amlodipine 5 mg PO DAILY #30 tab 06/05/18 06/20/18 biotin 1 tab PO DAILY 06/05/18 06/20/18 Previous Rx's Medication Instructions Recorded apixaban [Eliquis] 5 mg PO BID 30 Days #60 tab 02/24/18 amlodipine 5 mg PO DAILY #30 tab 06/05/18 Allergies Allergy/AdvReac Type Severity Reaction Status Date / Time atorvastatin calcium AdvReac Intermediate liver Unverified 06/20/18 12:37 [From Lipitor] problems niacin AdvReac Mild flushing Unverified 06/20/18 12:37 adhesive from monitor tabs Allergy Intermediate jones Uncoded 06/20/18 12:37 General Stated Complaint: Chest Pain MARQUIS: 2 Review of Systems Review of Systems All systems reviewed & are unremarkable except as noted in HPI and below Cardiovascular Reports chest pain Respiratory Denies cough Exam Const General: cooperative and no acute distress [facility] Head: normocephalic and atraumatic Mouth: moist mucous membranes Eyes Conjunctivae: normal conjunctivae Sclera: normal sclerae EOM: EOM intact bilaterally Neck Neck: trachea midline and supple Resp Auscultation: clear to auscultation bilaterally, no rales, no rhonchi and no wheezes Cardio Jugular venous pressure: no JVD Rate: regular rate and not tachycardic Rhythm: regular rhythm GI Palpation: soft, not firm, no guarding, no masses, not rigid and nontender Skin General skin exam: no rashes or lesions noted Neuro General: alert, awake, oriented x3 and tone normal Extrem General: no calf tenderness bilaterally and no edema Psych Appearance: grossly normal Mental Status: mental status grossly normal Speech and Movement: speech and movement normal Course Vital Signs Temperature 37.1 C 06/20/18 12:33 Pulse 70 06/20/18 12:33 Respiratory Rate 16 06/20/18 12:33 Blood Pressure 113/77 06/20/18 12:33 Pulse Oximetry 94 L 06/20/18 12:33 Temperature 37.1 C 06/20/18 12:33 Temperature Source Skin 06/20/18 12:33 Pulse 70 06/20/18 12:33 Respiratory Rate 16 06/20/18 12:33 Respiratory Effort 06/20/18 12:36 Blood Pressure 113/77 06/20/18 12:33 Blood Pressure Position Sitting 06/20/18 12:33 Pulse Oximetry 94 L 06/20/18 12:33 Oxygen Delivery Method Room Air 06/20/18 12:33 Oxygen Flow Rate 0 06/20/18 12:33
--- NOTE | 2018-06-20 13:22 | ED.GENADUL_ITS ---
Discharge Plan Disposition Patient Disposition: AGAINST MEDICAL ADVICE Discharge Details Chief Complaint: Chest Pain Clinical Impression: Chest pain Primary Care Provider: Delonte Corral ED Provider: Vinh Barton Home Meds and New Rx's Prescriptions: Continue aspirin 81 MG tablet,chewable 81 mg PO DAILY Qty: 90 RF: 4 ascorbic acid (vitamin C) [Vitamin C] 1,000 MG tablet 1,000 mg PO DAILY RF: 0 apixaban [Eliquis] 5 MG tablet 5 mg PO BID 30 Days Qty: 60 RF: 4 lansoprazole [Prevacid SoluTab] 30 MG tablet,disintegrat, delay rel 30 mg PO DAILY RF: 0 nitroglycerin [Nitrostat] 0.4 MG tablet, sublingual 1 tab Sublingual Q5 MIN PRN X3 PRNRF: 0 bupropion HCl 150 MG tablet extended release 12 hr 300 mg PO DAILY RF: 0 isosorbide mononitrate 120 MG tablet extended release 24 hr 120 mg PO DAILY RF: 0 multivitamin 1 EACH capsule 1 ea PO DAILY RF: 0 Rosuvastatin Calcium 40 MG tablet 40 mg PO DAILY RF: 0 sotalol [Betapace] 80 MG tablet 80 mg PO BID RF: 0 biotin 800 mcg Tablet 1 tab PO DAILY RF: 0 amlodipine 5 mg tablet 5 mg PO DAILY Qty: 30 RF: 0 Discharge Instructions Additional Instructions: You are leaving AGAINST MEDICAL ADVICE. You may have life-threatening or lifestyle modifying disease that will go undiagnosed and untreated. Please return to the emergency department at any time for further workup and treatment. Please follow-up with your software applications specialist as scheduled. Referrals: Rachael Fuller MD [MD CONSULTING PHYSICIAN] - Delonte Corral MD [Primary Care Provider] - Medical Decision Making 13:20 --52-year-old male with multiple medical problems including atrial fibrillation on Eliquis, right MCA CVA, coronary artery disease status post stent, here with chest pain. ECG reviewed and interpreted by me: Sinus rhythm, 75 bpm, frequent PACs, normal axis, no STEMI, nondiagnostic. Consider ACS - plan to check troponin. Consider aortic dissection - plan to CTA chest. 14:30 --CTA of the chest interpreted by radiology: Negative, no dissection or PE. 15:30 --Initial troponin negative. Plan for second troponin, repeat ECG and further diagnostic testing. Patient reassessed and continues to have mild to moderate pain. Plan for nitroglycerin. I explained my plan to the patient and patient refused further treatment and wishes to leave AGAINST MEDICAL ADVICE. I explained that patient may have life- threatening her lifestyle modifying disease that would go undiagnosed and untreated. Patient verbalized understanding of my concern. Patient has decisional making capacity to provide informed refusal of treatment. Patient plans to take his prescribed nitroglycerin when he gets home and to follow-up as scheduled with his software applications specialist on . He was instructed to return to the emergency department at anytime for further workup and treatment should he desire. HPI General Mode of arrival: ambulatory . Date/Time Provider Initiated Documentation: 06/20/18 12:43 . Limitations to Documentation: no limitations . Information obtained by: patient . HPI Narrative: 52-year-old male with history of multiple medical problems including atrial fibrillation on Eliquis, right MCA CVA, coronary artery disease , status post 8 cardiac stents, [facility] cardiac catheterization report from October 2017 noted 2 vessel coronary artery disease of left circumflex and RCA and medical therapy was recommended, well-known to [facility] emergency department, seen here on 06/05/2018 and had 2 negative troponins and was instructed to follow -up with cardiology, here today with chest pain. Pain started around 1030 this morning. Pain described as an ache. Pain localized to central chest with some radiation to his back. Pain has been constant. Pain rated 6/10. No modifiers. No associated shortness of breath. Related Data Home Medications Medication Instructions Recorded Confirmed lansoprazole [Prevacid SoluTab] 30 mg PO DAILY 06/18/13 06/20/18 nitroglycerin [Nitrostat] 1 tab SUBLINGUAL Q5 MIN PRN X3 PRN 10/17/13 06/20/18 bupropion HCl 300 mg PO DAILY 10/16/15 06/20/18 isosorbide mononitrate 120 mg PO DAILY 10/16/15 06/20/18 aspirin 81 mg PO DAILY #90 tab-cap 04/22/17 06/20/18 multivitamin 1 ea PO DAILY 04/28/17 06/20/18 ascorbic acid (vitamin C) [Vitamin 1,000 mg PO DAILY 07/18/17 06/20/18 C] apixaban [Eliquis] 5 mg PO BID 30 Days #60 tab 02/24/18 06/20/18 Rosuvastatin Calcium 40 mg PO DAILY 05/09/18 06/20/18 sotalol [Betapace] 80 mg PO BID 05/09/18 06/20/18 amlodipine 5 mg PO DAILY #30 tab 06/05/18 06/20/18 biotin 1 tab PO DAILY 06/05/18 06/20/18 Previous Rx's Medication Instructions Recorded apixaban [Eliquis] 5 mg PO BID 30 Days #60 tab 02/24/18 amlodipine 5 mg PO DAILY #30 tab 06/05/18 Allergies Allergy/AdvReac Type Severity Reaction Status Date / Time atorvastatin calcium AdvReac Intermediate liver Unverified 06/20/18 12:37 [From Lipitor] problems niacin AdvReac Mild flushing Unverified 06/20/18 12:37 adhesive from monitor tabs Allergy Intermediate jones Uncoded 06/20/18 12:37 General Stated Complaint: Chest Pain MARQUIS: 2 Review of Systems Review of Systems All systems reviewed & are unremarkable except as noted in HPI and below Cardiovascular Reports chest pain Respiratory Denies cough Exam Const General: cooperative and no acute distress [facility] Head: normocephalic and atraumatic Mouth: moist mucous membranes Eyes Conjunctivae: normal conjunctivae Sclera: normal sclerae EOM: EOM intact bilaterally Neck Neck: trachea midline and supple Resp Auscultation: clear to auscultation bilaterally, no rales, no rhonchi and no wheezes Cardio Jugular venous pressure: no JVD Rate: regular rate and not tachycardic Rhythm: regular rhythm GI Palpation: soft, not firm, no guarding, no masses, not rigid and nontender Skin General skin exam: no rashes or lesions noted Neuro General: alert, awake, oriented x3 and tone normal Extrem General: no calf tenderness bilaterally and no edema Psych Appearance: grossly normal Mental Status: mental status grossly normal Speech and Movement: speech and movement normal Course Vital Signs Temperature 37.1 C 06/20/18 12:33 Pulse 70 06/20/18 12:33 Respiratory Rate 16 06/20/18 12:33 Blood Pressure 113/77 06/20/18 12:33 Pulse Oximetry 94 L 06/20/18 12:33 Temperature 37.1 C 06/20/18 12:33 Temperature Source Skin 06/20/18 12:33 Pulse 70 06/20/18 12:33 Respiratory Rate 16 06/20/18 12:33 Respiratory Effort 06/20/18 12:36 Blood Pressure 113/77 06/20/18 12:33 Blood Pressure Position Sitting 06/20/18 12:33 Pulse Oximetry 94 L 06/20/18 12:33 Oxygen Delivery Method Room Air 06/20/18 12:33 Oxygen Flow Rate 0 06/20/18 12:33
--- NOTE | 2018-06-20 13:45 | DI.CT_ITS ---
SYMPTOMS/DIAGNOSIS: CHEST PAIN CT SCAN OF THE CHEST: CT angiography was performed with multi slice acquisition and multi planar and 3D reconstruction. Routine examination. CT scan of the chest was performed according to the pulmonary embolus protocol. There is no evidence of a pulmonary embolus. The thoracic aorta is of normal caliber. No aneurysm or dissection is identified. Heart size is within normal limits. No significant pericardial effusion is seen. No findings to suggest right ventricular dysfunction are present. Mild coronary artery calcification is seen. No significant mediastinal, hilar or axillary adenopathy is present. No pleural effusion or pneumothorax is identified. Moderate paraseptal emphysematous changes are present in the lungs. Dependent atelectatic changes are seen in the bases. No focal consolidating infiltrates are seen. The tracheobronchial tree is unremarkable. Degenerative changes are present in the spine. IMPRESSION: 1. No evidence of a pulmonary embolus or thoracic aortic dissection or aneurysm. 2. Bilateral basilar atelectasis. 3. Paraseptal emphysema. The findings were discussed with the Emergency Department on the date of the examination.
[2018-06-20] MEDS: Omnipaque 350 MG/ML 100 ML BTL IJ (13:49)
[2018-06-20 14:26] LABS: Abs Immature Grans 0.03 k/cumm (0.0-0.09); Absolute Basophil Count 0.04 k/cumm (0.0-0.2); Absolute Eosinophil Count 0.23 k/cumm (0.0-0.7); Absolute Lymphocyte Count 2.54 k/cumm (1.2-3.4); Absolute Monocyte Count 0.68 k/cumm (0.11-0.7); Absolute Neutrophil Count 5.44 k/cumm (1.2-6.7); Basophils % 0.4; Eosinophils % 2.6; HGB 13.7 g/dL (13.5-17.5); Immature Grans % 0.3; Lymphocytes % 28.3; Mean Corp. HGB Concentration 34.3 g/dL (32.0-36.0); Mean Corpuscular Hemoglobin 31.5 pg (27.0-33.0); Mean Platelet Volume 10.4 fL (8.0-11.0); Monocytes % 7.6; Neutrophils % 60.8; Platelet Count 236 x1000/uL (130-400); RBC 4.35 m/cumm (4.50-6.00); RBC Distribution Width 14.1 % (11.8-14.1); White Blood Cell Count 8.96 k/cumm (4.4-10.8)
[2018-06-20 15:06] LABS: ALT 23 U/L (12-78); AST 16 U/L (15-37); Albumin 3.3 g/dL (3.4-5.0); Alkaline Phosphatase 87 U/L (46-116); Anion Gap 12.8 mmol/L (3-11); BUN 15 mg/dL (7-18); Bilirubin, Total 0.2 mg/dL (0.2-1.0); CO2 24.2 mmol/L (21.0-32.0); CREATININE 1.01 mg/dL (0.70-1.30); Calcium 8.5 mg/dL (8.5-10.1); Chloride 103 mmol/L (98-107); Glucose 119 mg/dL (70-100); Magnesium 1.9 mg/dL (1.8-2.4); Potassium 3.6 mmol/L (3.5-5.1); Sodium 140 mmol/L (136-145)
[2018-06-20 15:08] LABS: Troponin I < 0.02 ng/mL (0.00-0.06)
== END 2018-06-20 15:53 | disposition left against medical advice (07) ==
PROVIDERS: Emergency Provider Student in an Organized Health Care Education/Training Program; PCP Internal Medicine
DX: R07.9 Chest pain, unspecified (principal); Z53.29 Procedure and treatment not carried out because of patient's decision for other reasons; I25.10 Atherosclerotic heart disease of native coronary artery without angina pectoris; Z95.5 Presence of coronary angioplasty implant and graft; I25.2 Old myocardial infarction; Z79.01 Long term (current) use of anticoagulants; I48.91 Unspecified atrial fibrillation
CPT/HCPCS: 36415; 71275; 80053; 93005; 99285; 83735; 84484; 85025; 93010; J3490

== ENCOUNTER 2018-06-29 06:00 | Emergency (ER) | payer BC, SELFPAY ==
[2018-06-29] VITALS (10 sets, daily range): BP systolic 105–116; BP diastolic 65–72; PULSE 58–62; RESP 12–20; TEMP 36.5; O2SAT 92–98
--- NOTE | 2018-06-29 06:17 | W.ED.GENAD ---
Discharge Plan Disposition Patient Disposition: HOME Condition: Stable Discharge Details Chief Complaint: Chest Pain Clinical Impression: Chest pain Primary Care Provider: Delonte Corral ED Provider: Bladimir Collazo Home Meds and New Rx's Prescriptions: No Action aspirin 81 MG tablet,chewable 81 mg PO DAILY Qty: 90 RF: 4 ascorbic acid (vitamin C) [Vitamin C] 1,000 MG tablet 1,000 mg PO DAILY RF: 0 apixaban [Eliquis] 5 MG tablet 5 mg PO BID 30 Days Qty: 60 RF: 4 lansoprazole [Prevacid SoluTab] 30 MG tablet,disintegrat, delay rel 30 mg PO DAILY RF: 0 nitroglycerin [Nitrostat] 0.4 MG tablet, sublingual 1 tab Sublingual Q5 MIN PRN X3 PRNRF: 0 bupropion HCl 150 MG tablet extended release 12 hr 300 mg PO DAILY RF: 0 isosorbide mononitrate 120 MG tablet extended release 24 hr 120 mg PO DAILY RF: 0 multivitamin 1 EACH capsule 1 ea PO DAILY RF: 0 Rosuvastatin Calcium 40 MG tablet 40 mg PO DAILY RF: 0 sotalol [Betapace] 80 MG tablet 80 mg PO BID RF: 0 biotin 800 mcg Tablet 1 tab PO DAILY RF: 0 amlodipine 5 mg tablet 5 mg PO DAILY Qty: 30 RF: 0 Discharge Instructions Instructions: Chest Pain (ED) Additional Instructions: follow up with your primary care provider within a week if pain significantly worsens, makes you have nausea/vomit, or you become sweaty or short of breath return to the emergency department Discharge Data Discharge Physician: Bladimir Collazo Medical Decision Making 52 yo male with hx of afib on eliquis, cad, who comes in with chest pain. He states the pain started while he was driving around 330pm yesterday. The pain has been constant, nonradiating, no diaphoresis or n/v or sob. He states it is similar to pain he had when he was admitted in April of this year and had negative workup and has had a MPI this year showing fixed defect otherwise no defects, and during that admission given the recent stress test and negative troponins felt he was safe for outpt management. He decided this morning he wanted to be checked out. He does have reproducible pain on exam so could be muscle wall pain but will send troponin to eval for nstemi. No hypoxia or tachycardia or evidence of dvt so doubt PE and normal vascular exam and no tearing back pain and so doubt dissection and had negative CTA in April. Has clear lungs sounds so doubt ptx and no cough or fevers to suggest pna. pt's pain improved with gi cocktail, remains hd stable, troponin negative. I recommended a second troponin but pt declined as he has had pain since yesterday. He declines admission as he has an appt with his hand counter in [place] next week, and has capacity to make his own decisions and understands risks including and disability. I did recommend he return for any new or worsening symptoms and f/u with his hand counter as scheduled Differential Diagnosis atypical chest alejandro, acs, muscle strain, gerd Lab Data Lab results reviewed: Yes I reviewed the patient's lab results. ECG Data Attestation: I personally reviewed and interpreted this ECG (s) as follows: Interpretation: sinus rhythm, rate of 60, right axis, normal pr intervals, no acute ischemic changes HPI General Mode of arrival: ambulatory. Date/Time Provider Initiated Documentation: 06/29/18 06:07. Limitations to Documentation: no limitations. Information obtained by: patient. History of Present Illness 52 year old M presents to the emergency department with the chief complaint of chest pain, described as mild, with intensity rated at 3. Quality is described as aching, and is localized to the chest. Patient reports no radiation. Patient started experiencing this day(s) (1) and it has been constant. No relieving factors improve symptom(s), No exacerbating factors reported . Patient notes no other symptoms.. Patient did receive the following treatments prior to arrival, none Related Data Home Medications Medication Instructions Recorded Confirmed lansoprazole [Prevacid SoluTab] 30 mg PO DAILY 06/18/13 06/29/18 nitroglycerin [Nitrostat] 1 tab SUBLINGUAL Q5 MIN PRN X3 PRN 10/17/13 06/29/18 bupropion HCl 300 mg PO DAILY 10/16/15 06/29/18 isosorbide mononitrate 120 mg PO DAILY 10/16/15 06/29/18 aspirin 81 mg PO DAILY #90 tab-cap 04/22/17 06/29/18 multivitamin 1 ea PO DAILY 04/28/17 06/29/18 ascorbic acid (vitamin C) [Vitamin 1,000 mg PO DAILY 07/18/17 06/29/18 C] apixaban [Eliquis] 5 mg PO BID 30 Days #60 tab 02/24/18 06/29/18 Rosuvastatin Calcium 40 mg PO DAILY 05/09/18 06/29/18 sotalol [Betapace] 80 mg PO BID 05/09/18 06/29/18 amlodipine 5 mg PO DAILY #30 tab 06/05/18 06/29/18 biotin 1 tab PO DAILY 06/05/18 06/29/18 Previous Rx's Medication Instructions Recorded apixaban [Eliquis] 5 mg PO BID 30 Days #60 tab 02/24/18 amlodipine 5 mg PO DAILY #30 tab 06/05/18 Allergies Allergy/AdvReac Type Severity Reaction Status Date / Time atorvastatin calcium AdvReac Intermediate liver Unverified 06/29/18 06:06 [From Lipitor] problems niacin AdvReac Mild flushing Unverified 06/29/18 06:06 adhesive from monitor tabs Allergy Intermediate jones Uncoded 06/29/18 06:06 General Stated Complaint: Chest Pain MARQUIS: 3 Review of Systems Review of Systems All systems reviewed & are unremarkable except as noted in HPI and below Constitutional Denies chills, Denies fever(s) and Denies weakness Eyes Denies loss of vision ENT Denies change in voice Cardiovascular Denies dyspnea Respiratory Denies dyspnea Gastrointestinal Denies abdominal pain, Denies nausea and Denies vomiting Genitourinary Denies dysuria Musculoskeletal Denies joint swelling Integumentary/Breasts Denies rash Neurologic Denies loss of vision and Denies weakness Psychiatric Denies depression Endocrine Denies cold intolerance and Denies heat intolerance Allergic/Immunologic Reports urticaria [facility] Medical History Atrial fibrillation (Chronic) Anemia Back pain, chronic Chest pain Coronary artery disease Depression with anxiety Dysesthesia Dyslipidemia Dyspepsia Esophagitis Gastritis Hemiplegia History of kidney cancer Hx of adenomatous polyp of colon Ischemic stroke Pulmonary nodules Sleep apnea Tobacco use Social History Smoking/Tobacco Use Status: Current every day alcohol intake: never substance use type: does not use Surgical History Hx of esophagogastroduodenoscopy (Chronic ~05/2018) Colonoscopy - MAC (08/03/17) EGD - MAC (08/03/17) Partial Nephrectomy Repair of inguinal hernia cardiac cath Exam Const General: no acute distress Orientation: alert HENMT Head: normal to inspection Ears: external ears normal General nose exam: external nose normal Mouth: moist mucous membranes Eyes General: appearance normal, both eyes and all related structures Neck Neck: normal visual inspection Chest Chest: other (left anterior chest pain with palpation) Resp Effort & Inspection: normal respiratory effort, able to speak in complete sentences and no audible wheezes Auscultation: clear to auscultation bilaterally Cardio Rate: regular rate Rhythm: regular rhythm Heart Sounds: no murmurs Skin General skin exam: no rashes or lesions noted Neuro General: alert and oriented x3 Extrem General: normal to inspection Psych Mental Status: mental status grossly normal Course Vital Signs Temperature 36.5 C 06/29/18 06:05 Pulse 61 06/29/18 06:05 Respiratory Rate 20 06/29/18 06:05 Blood Pressure 116/72 06/29/18 06:05 Pulse Oximetry 98 06/29/18 06:05 Temperature 36.5 C 06/29/18 06:05 Temperature Source Temporal Artery Scan 06/29/18 06:05 Pulse 61 06/29/18 06:05 Respiratory Rate 14 06/29/18 06:07 Respiratory Effort Non-Labored 06/29/18 06:07 Respiratory Depth Normal 06/29/18 06:07 Respiratory Pattern Normal 06/29/18 06:07 Blood Pressure 116/72 06/29/18 06:05 Blood Pressure Position Sitting 06/29/18 06:05 Pulse Oximetry 98 06/29/18 06:05 Oxygen Delivery Method Room Air 06/29/18 06:05 Oxygen Flow Rate 0 06/29/18 06:05 Pain Level 7 06/29/18 06:07
--- NOTE | 2018-06-29 06:21 | ED.GENADUL_ITS ---
Discharge Plan Disposition Patient Disposition: HOME Condition: Stable Discharge Details Chief Complaint: Chest Pain Clinical Impression: Chest pain Primary Care Provider: Delonte Corral ED Provider: Bladimir Collazo Home Meds and New Rx's Prescriptions: No Action aspirin 81 MG tablet,chewable 81 mg PO DAILY Qty: 90 RF: 4 ascorbic acid (vitamin C) [Vitamin C] 1,000 MG tablet 1,000 mg PO DAILY RF: 0 apixaban [Eliquis] 5 MG tablet 5 mg PO BID 30 Days Qty: 60 RF: 4 lansoprazole [Prevacid SoluTab] 30 MG tablet,disintegrat, delay rel 30 mg PO DAILY RF: 0 nitroglycerin [Nitrostat] 0.4 MG tablet, sublingual 1 tab Sublingual Q5 MIN PRN X3 PRNRF: 0 bupropion HCl 150 MG tablet extended release 12 hr 300 mg PO DAILY RF: 0 isosorbide mononitrate 120 MG tablet extended release 24 hr 120 mg PO DAILY RF: 0 multivitamin 1 EACH capsule 1 ea PO DAILY RF: 0 Rosuvastatin Calcium 40 MG tablet 40 mg PO DAILY RF: 0 sotalol [Betapace] 80 MG tablet 80 mg PO BID RF: 0 biotin 800 mcg Tablet 1 tab PO DAILY RF: 0 amlodipine 5 mg tablet 5 mg PO DAILY Qty: 30 RF: 0 Discharge Instructions Instructions: Chest Pain (ED) Additional Instructions: follow up with your primary care provider within a week if pain significantly worsens, makes you have nausea/vomit, or you become sweaty or short of breath return to the emergency department Discharge Data Discharge Physician: Bladimir Collazo Medical Decision Making 52 yo male with hx of afib on eliquis, cad, who comes in with chest pain. He states the pain started while he was driving around 330pm yesterday. The pain has been constant, nonradiating, no diaphoresis or n/v or sob. He states it is similar to pain he had when he was admitted in April of this year and had negative workup and has had a MPI this year showing fixed defect otherwise no defects, and during that admission given the recent stress test and negative troponins felt he was safe for outpt management. He decided this morning he wanted to be checked out. He does have reproducible pain on exam so could be muscle wall pain but will send troponin to eval for nstemi. No hypoxia or tachycardia or evidence of dvt so doubt PE and normal vascular exam and no tearing back pain and so doubt dissection and had negative CTA in April. Has clear lungs sounds so doubt ptx and no cough or fevers to suggest pna. pt's pain improved with gi cocktail, remains hd stable, troponin negative. I recommended a second troponin but pt declined as he has had pain since yesterday. He declines admission as he has an appt with his change manager in [place] next week, and has capacity to make his own decisions and understands risks including and disability. I did recommend he return for any new or worsening symptoms and f/u with his change manager as scheduled Differential Diagnosis atypical chest alejandro, acs, muscle strain, gerd Lab Data Lab results reviewed: Yes I reviewed the patient's lab results. ECG Data Attestation: I personally reviewed and interpreted this ECG (s) as follows: Interpretation: sinus rhythm, rate of 60, right axis, normal pr intervals, no acute ischemic changes HPI General Mode of arrival: ambulatory . Date/Time Provider Initiated Documentation: 06/29/18 06:07 . Limitations to Documentation: no limitations . Information obtained by: patient . History of Present Illness 52 year old M presents to the emergency department with the chief complaint of chest pain, described as mild, with intensity rated at 3. Quality is described as aching, and is localized to the chest. Patient reports no radiation. Patient started experiencing this day(s) (1) and it has been constant. No relieving factors improve symptom(s), No exacerbating factors reported . Patient notes no other symptoms.. Patient did receive the following treatments prior to arrival, none Related Data Home Medications Medication Instructions Recorded Confirmed lansoprazole [Prevacid SoluTab] 30 mg PO DAILY 06/18/13 06/29/18 nitroglycerin [Nitrostat] 1 tab SUBLINGUAL Q5 MIN PRN X3 PRN 10/17/13 06/29/18 bupropion HCl 300 mg PO DAILY 10/16/15 06/29/18 isosorbide mononitrate 120 mg PO DAILY 10/16/15 06/29/18 aspirin 81 mg PO DAILY #90 tab-cap 04/22/17 06/29/18 multivitamin 1 ea PO DAILY 04/28/17 06/29/18 ascorbic acid (vitamin C) [Vitamin 1,000 mg PO DAILY 07/18/17 06/29/18 C] apixaban [Eliquis] 5 mg PO BID 30 Days #60 tab 02/24/18 06/29/18 Rosuvastatin Calcium 40 mg PO DAILY 05/09/18 06/29/18 sotalol [Betapace] 80 mg PO BID 05/09/18 06/29/18 amlodipine 5 mg PO DAILY #30 tab 06/05/18 06/29/18 biotin 1 tab PO DAILY 06/05/18 06/29/18 Previous Rx's Medication Instructions Recorded apixaban [Eliquis] 5 mg PO BID 30 Days #60 tab 02/24/18 amlodipine 5 mg PO DAILY #30 tab 06/05/18 Allergies Allergy/AdvReac Type Severity Reaction Status Date / Time atorvastatin calcium AdvReac Intermediate liver Unverified 06/29/18 06:06 [From Lipitor] problems niacin AdvReac Mild flushing Unverified 06/29/18 06:06 adhesive from monitor tabs Allergy Intermediate jones Uncoded 06/29/18 06:06 General Stated Complaint: Chest Pain MARQUIS: 3 Review of Systems Review of Systems All systems reviewed & are unremarkable except as noted in HPI and below Constitutional Denies chills, Denies fever(s) and Denies weakness Eyes Denies loss of vision ENT Denies change in voice Cardiovascular Denies dyspnea Respiratory Denies dyspnea Gastrointestinal Denies abdominal pain, Denies nausea and Denies vomiting Genitourinary Denies dysuria Musculoskeletal Denies joint swelling Integumentary/Breasts Denies rash Neurologic Denies loss of vision and Denies weakness Psychiatric Denies depression Endocrine Denies cold intolerance and Denies heat intolerance Allergic/Immunologic Reports urticaria [facility] Medical History Atrial fibrillation (Chronic) Anemia Back pain, chronic Chest pain Coronary artery disease Depression with anxiety Dysesthesia Dyslipidemia Dyspepsia Esophagitis Gastritis Hemiplegia History of kidney cancer Hx of adenomatous polyp of colon Ischemic stroke Pulmonary nodules Sleep apnea Tobacco use Social History Smoking/Tobacco Use Status: Current every day alcohol intake: never substance use type: does not use Surgical History Hx of esophagogastroduodenoscopy (Chronic ~05/2018) Colonoscopy - MAC (08/03/17) EGD - MAC (08/03/17) Partial Nephrectomy Repair of inguinal hernia cardiac cath Exam Const General: no acute distress Orientation: alert HENMT Head: normal to inspection Ears: external ears normal General nose exam: external nose normal Mouth: moist mucous membranes Eyes General: appearance normal, both eyes and all related structures Neck Neck: normal visual inspection Chest Chest: other (left anterior chest pain with palpation) Resp Effort & Inspection: normal respiratory effort, able to speak in complete sentences and no audible wheezes Auscultation: clear to auscultation bilaterally Cardio Rate: regular rate Rhythm: regular rhythm Heart Sounds: no murmurs Skin General skin exam: no rashes or lesions noted Neuro General: alert and oriented x3 Extrem General: normal to inspection Psych Mental Status: mental status grossly normal Course Vital Signs Temperature 36.5 C 06/29/18 06:05 Pulse 61 06/29/18 06:05 Respiratory Rate 20 06/29/18 06:05 Blood Pressure 116/72 06/29/18 06:05 Pulse Oximetry 98 06/29/18 06:05 Temperature 36.5 C 06/29/18 06:05 Temperature Source Temporal Artery Scan 06/29/18 06:05 Pulse 61 06/29/18 06:05 Respiratory Rate 14 06/29/18 06:07 Respiratory Effort Non-Labored 06/29/18 06:07 Respiratory Depth Normal 06/29/18 06:07 Respiratory Pattern Normal 06/29/18 06:07 Blood Pressure 116/72 06/29/18 06:05 Blood Pressure Position Sitting 06/29/18 06:05 Pulse Oximetry 98 06/29/18 06:05 Oxygen Delivery Method Room Air 06/29/18 06:05 Oxygen Flow Rate 0 06/29/18 06:05 Pain Level 7 06/29/18 06:07
[2018-06-29 06:23] LABS: Abs Immature Grans 0.04 k/cumm (0.0-0.09); Absolute Basophil Count 0.04 k/cumm (0.0-0.2); Absolute Eosinophil Count 0.19 k/cumm (0.0-0.7); Absolute Lymphocyte Count 2.08 k/cumm (1.2-3.4); Absolute Monocyte Count 0.59 k/cumm (0.11-0.7); Absolute Neutrophil Count 7.43 k/cumm (1.2-6.7); Basophils % 0.4; Eosinophils % 1.8; HGB 13.8 g/dL (13.5-17.5); Immature Grans % 0.4; Lymphocytes % 20.1; Mean Corp. HGB Concentration 34.5 g/dL (32.0-36.0); Mean Corpuscular Hemoglobin 31.4 pg (27.0-33.0); Mean Corpuscular Volume 91.1 fL (80-95); Mean Platelet Volume 9.5 fL (8.0-11.0); Monocytes % 5.7; Neutrophils % 71.6; Platelet Count 249 x1000/uL (130-400); RBC 4.39 m/cumm (4.50-6.00); RBC Distribution Width 13.7 % (11.8-14.1); White Blood Cell Count 10.37 k/cumm (4.4-10.8)
[2018-06-29 06:37] LABS: ALT 20 U/L (12-78); AST 16 U/L (15-37); Albumin 3.2 g/dL (3.4-5.0); Alkaline Phosphatase 81 U/L (46-116); Anion Gap 9.9 mmol/L (3-11); BUN 18 mg/dL (7-18); Bilirubin, Total 0.3 mg/dL (0.2-1.0); CO2 26.1 mmol/L (21.0-32.0); CREATININE 1.01 mg/dL (0.70-1.30); Calcium 8.7 mg/dL (8.5-10.1); Chloride 104 mmol/L (98-107); Glucose 133 mg/dL (70-100); Magnesium 1.8 mg/dL (1.8-2.4); Potassium 3.6 mmol/L (3.5-5.1); Sodium 140 mmol/L (136-145); Total Protein 6.9 g/dL (6.4-8.2)
[2018-06-29 06:38] LABS: INR 1.1 (1.0-3.5); PTT Activated 32.8 sec (21.0-31.4); Prothrombin Time 10.4 sec (9.3-10.8)
[2018-06-29 06:39] LABS: Troponin I < 0.02 ng/mL (0.00-0.06)
== END 2018-06-29 06:55 | disposition home or self-care (01) ==
LOC: ER 06:56
PROVIDERS: Emergency Provider Emergency Medicine; PCP Internal Medicine
DX: R07.9 Chest pain, unspecified (principal); I25.10 Atherosclerotic heart disease of native coronary artery without angina pectoris; Z95.5 Presence of coronary angioplasty implant and graft; Z79.01 Long term (current) use of anticoagulants; I48.91 Unspecified atrial fibrillation
CPT/HCPCS: 36415; 80053; 93005; 99284; 83735; 84484; 85025; 85610; 85730; 93010; 99285

== ENCOUNTER 2018-07-06 09:16 | Emergency (ER) | payer BC, SELFPAY ==
[2018-07-06] VITALS (7 sets, daily range): BP systolic 116–126; BP diastolic 65–74; PULSE 53–59; RESP 14–18; O2SAT 90–94
[2018-07-06 09:33] LABS: Abs Immature Grans 0.03 k/cumm (0.0-0.09); Absolute Basophil Count 0.04 k/cumm (0.0-0.2); Absolute Eosinophil Count 0.25 k/cumm (0.0-0.7); Absolute Lymphocyte Count 2.86 k/cumm (1.2-3.4); Absolute Monocyte Count 0.94 k/cumm (0.11-0.7); Absolute Neutrophil Count 5.92 k/cumm (1.2-6.7); Basophils % 0.4; Eosinophils % 2.5; HCT 40.4 % (40.0-50.0); HGB 13.9 g/dL (13.5-17.5); Immature Grans % 0.3; Lymphocytes % 28.5; Mean Corp. HGB Concentration 34.4 g/dL (32.0-36.0); Mean Corpuscular Hemoglobin 31.3 pg (27.0-33.0); Mean Platelet Volume 9.5 fL (8.0-11.0); Monocytes % 9.4; Neutrophils % 58.9; Platelet Count 261 x1000/uL (130-400); RBC 4.44 m/cumm (4.50-6.00); RBC Distribution Width 13.7 % (11.8-14.1); White Blood Cell Count 10.04 k/cumm (4.4-10.8)
[2018-07-06 09:51] LABS: ALT 22 U/L (12-78); AST 15 U/L (15-37); Albumin 3.5 g/dL (3.4-5.0); Alkaline Phosphatase 87 U/L (46-116); Anion Gap 6.7 mmol/L (3-11); BUN 18 mg/dL (7-18); Bilirubin, Total 0.2 mg/dL (0.2-1.0); CO2 27.3 mmol/L (21.0-32.0); CREATININE 0.94 mg/dL (0.70-1.30); Calcium 9.1 mg/dL (8.5-10.1); Chloride 105 mmol/L (98-107); Glucose 95 mg/dL (70-100); Magnesium 1.9 mg/dL (1.8-2.4); Potassium 4.2 mmol/L (3.5-5.1); Sodium 139 mmol/L (136-145); Total Protein 7.4 g/dL (6.4-8.2)
[2018-07-06 09:54] LABS: Troponin I < 0.02 ng/mL (0.00-0.06)
--- NOTE | 2018-07-06 09:56 | ED.GENADUL_ITS ---
Discharge Plan Disposition Patient Disposition: HOME Condition: Stable Discharge Details Chief Complaint: Chest Pain Clinical Impression: Chest pain Primary Care Provider: Delonte Corral ED Provider: Bladimir Collazo Home Meds and New Rx's Prescriptions: Continue aspirin 81 MG tablet,chewable 81 mg PO DAILY Qty: 90 RF: 4 ascorbic acid (vitamin C) [Vitamin C] 1,000 MG tablet 1,000 mg PO DAILY RF: 0 apixaban [Eliquis] 5 MG tablet 5 mg PO BID 30 Days Qty: 60 RF: 4 lansoprazole [Prevacid SoluTab] 30 MG tablet,disintegrat, delay rel 30 mg PO DAILY RF: 0 nitroglycerin [Nitrostat] 0.4 MG tablet, sublingual 1 tab Sublingual Q5 MIN PRN X3 PRNRF: 0 bupropion HCl 150 MG tablet extended release 12 hr 300 mg PO DAILY RF: 0 isosorbide mononitrate 120 MG tablet extended release 24 hr 120 mg PO DAILY RF: 0 multivitamin 1 EACH capsule 1 ea PO DAILY RF: 0 Rosuvastatin Calcium 40 MG tablet 40 mg PO DAILY RF: 0 sotalol [Betapace] 80 MG tablet 80 mg PO BID RF: 0 biotin 800 mcg Tablet 1 tab PO DAILY RF: 0 amlodipine 5 mg tablet 5 mg PO DAILY Qty: 30 RF: 0 Discharge Instructions Instructions: Chest Pain (ED) Discharge Data Discharge Physician: Bladimir Collazo Medical Decision Making 52 yo male with hx of afib, cad, recurrent chest pain, who comes in with chest pain and burning sensation of the chest and foul taste of the mouth. Denies radiation of pain, diaphoresis, or increased pain with exertion. No tachycardia or hypoxia to suggest PE. Normal vascular exam and no tearing back pain so doubt dissection at this time. HEart score is 3, will send troponin, ecg unchanged. I suspect esophagitis, pt declining any meds for this or gerd at this time labs unremarkable, pt remains stable at this time. I recommended delta troponin but pt declined this and has capacity to make his own decisions. He understands to return if he has worsening symptoms and he is going to f/u with his consumer affairs manager on Tuesday. I did recommend trying antacids but pt declined this advise as well Differential Diagnosis acs, gerd, esophagitis, ECG Data Attestation: I personally reviewed and interpreted this ECG (s) as follows: Prior ECG tracings: available for review Interpretation: sinus bardycardia, rate of 57, pr 156, no acute ischemic st t wave changes HPI General Mode of arrival: ambulatory . Date/Time Provider Initiated Documentation: 07/06/18 09:17 . Limitations to Documentation: no limitations . Information obtained by: patient . History of Present Illness 52 year old M presents to the emergency department with the chief complaint of chest pain, described as moderate, with intensity rated at 4. Quality is described as burning, and is localized to the chest. Patient reports no radiation. Patient started experiencing this day(s) (3) and it has been constant. No relieving factors improve symptom(s), No exacerbating factors reported . Patient notes other (nausea). Patient did receive the following treatments prior to arrival, none Related Data Home Medications Medication Instructions Recorded Confirmed lansoprazole [Prevacid SoluTab] 30 mg PO DAILY 06/18/13 07/06/18 nitroglycerin [Nitrostat] 1 tab SUBLINGUAL Q5 MIN PRN X3 PRN 10/17/13 07/06/18 bupropion HCl 300 mg PO DAILY 10/16/15 07/06/18 isosorbide mononitrate 120 mg PO DAILY 10/16/15 07/06/18 aspirin 81 mg PO DAILY #90 tab-cap 04/22/17 07/06/18 multivitamin 1 ea PO DAILY 04/28/17 07/06/18 ascorbic acid (vitamin C) [Vitamin 1,000 mg PO DAILY 07/18/17 07/06/18 C] apixaban [Eliquis] 5 mg PO BID 30 Days #60 tab 02/24/18 07/06/18 Rosuvastatin Calcium 40 mg PO DAILY 05/09/18 07/06/18 sotalol [Betapace] 80 mg PO BID 05/09/18 07/06/18 amlodipine 5 mg PO DAILY #30 tab 06/05/18 07/06/18 biotin 1 tab PO DAILY 06/05/18 07/06/18 Previous Rx's Medication Instructions Recorded apixaban [Eliquis] 5 mg PO BID 30 Days #60 tab 02/24/18 amlodipine 5 mg PO DAILY #30 tab 06/05/18 Allergies Allergy/AdvReac Type Severity Reaction Status Date / Time atorvastatin calcium AdvReac Intermediate liver Unverified 07/06/18 09:26 [From Lipitor] problems niacin AdvReac Mild flushing Unverified 07/06/18 09:26 adhesive from monitor tabs Allergy Intermediate jones Uncoded 07/06/18 09:26 General Stated Complaint: Chest Pain MARQUIS: 2 Review of Systems Review of Systems All systems reviewed & are unremarkable except as noted in HPI and below Constitutional Denies chills, Denies fever(s) and Denies weakness Eyes Denies loss of vision ENT Denies change in voice Cardiovascular Denies dyspnea Respiratory Denies dyspnea Gastrointestinal Denies abdominal pain and Denies vomiting Genitourinary Denies dysuria Musculoskeletal Denies joint swelling Integumentary/Breasts Denies rash Neurologic Denies loss of vision and Denies weakness Psychiatric Denies depression Endocrine Denies cold intolerance and Denies heat intolerance Allergic/Immunologic Reports urticaria Exam Const General: no acute distress Orientation: alert HENMT Head: normal to inspection Ears: external ears normal General nose exam: external nose normal Mouth: moist mucous membranes Eyes General: appearance normal, both eyes and all related structures Neck Neck: normal visual inspection Resp Effort & Inspection: normal respiratory effort and able to speak in complete sentences Cardio Rate: regular rate Skin General skin exam: no rashes or lesions noted Neuro General: alert and oriented x3 Extrem General: normal to inspection Psych Mental Status: mental status grossly normal Course Vital Signs Respiratory Rate 15 07/06/18 09:33 Pulse Oximetry 93 L 07/06/18 09:33 Pulse 56 L 07/06/18 09:33 Respiratory Rate 15 07/06/18 09:33 Respiratory Effort Non-Labored 07/06/18 09:21 Pulse Oximetry 93 L 07/06/18 09:33 Pain Level 7 07/06/18 09:21 Lab/Test Results Lab/Test Results: Laboratory Tests Range/Units 07/06/18 09:20 WBC (4.4-10.8) k/cumm 10.04 RBC (4.50-6.00) m/cumm 4.44 L Hgb (13.5-17.5) g/dL 13.9 Hct (40.0-50.0) % 40.4 MCV (80-95) fL 91.0 MCH (27.0-33.0) pg 31.3 MCHC (32.0-36.0) g/dL 34.4 RDW (11.8-14.1) % 13.7 Plt Count (130-400) x1000/uL 261 MPV (8.0-11.0) fL 9.5 Immature Gran % 0.3 Neutrophils % 58.9 Lymphocytes % 28.5 Monocytes % 9.4 Eosinophils % 2.5 Basophils % 0.4 Absolute Neutrophils (1.2-6.7) k/cumm 5.92 Absolute Lymphocytes (1.2-3.4) k/cumm 2.86 Absolute Monocytes (0.11-0.7) k/cumm 0.94 H Absolute Eosinophils (0.0-0.7) k/cumm 0.25 Absolute Basophils (0.0-0.2) k/cumm 0.04
== END 2018-07-06 10:19 | disposition home or self-care (01) ==
PROVIDERS: Emergency Provider Emergency Medicine; PCP Internal Medicine
DX: R07.9 Chest pain, unspecified (principal); Z53.29 Procedure and treatment not carried out because of patient's decision for other reasons
CPT/HCPCS: 36415; 80053; 93005; 99284; 83735; 84484; 85025; 93010

== ENCOUNTER 2018-07-24 06:06 | Emergency (ER) | payer BC, SELFPAY ==
[2018-07-24] VITALS (29 sets, daily range): BP systolic 88–116; BP diastolic 54–91; PULSE 53–132; RESP 12–28; TEMP 36.8; O2SAT 94–99
--- NOTE | 2018-07-24 06:21 | DI.RAD_ITS ---
SYMPTOMS/DIAGNOSIS: CHEST PAIN CHEST X-RAY, PORTABLE AP VIEW: Comparison is 06/05/18. The heart is normal in size. The lungs are clear. The mediastinal structures and pleura appear intact. IMPRESSION: Normal chest.
--- NOTE | 2018-07-24 06:23 | W.ED.GENAD ---
Discharge Plan Disposition Patient Disposition: [facility] Condition: Improving Discharge Details Chief Complaint: Chest Pain Clinical Impression: Acute non-ST elevation myocardial infarction (NSTEMI) Primary Care Provider: Delonte Corral ED Provider: Mik Christy Home Meds and New Rx's Prescriptions: No Action aspirin 81 MG tablet,chewable 81 mg PO DAILY Qty: 90 RF: 4 ascorbic acid (vitamin C) [Vitamin C] 1,000 MG tablet 1,000 mg PO DAILY RF: 0 apixaban [Eliquis] 5 MG tablet 5 mg PO BID 30 Days Qty: 60 RF: 4 lansoprazole [Prevacid SoluTab] 30 MG tablet,disintegrat, delay rel 30 mg PO DAILY RF: 0 nitroglycerin [Nitrostat] 0.4 MG tablet, sublingual 1 tab Sublingual Q5 MIN PRN X3 PRNRF: 0 bupropion HCl 150 MG tablet extended release 12 hr 300 mg PO DAILY RF: 0 isosorbide mononitrate 120 MG tablet extended release 24 hr 120 mg PO DAILY RF: 0 multivitamin 1 EACH capsule 1 ea PO DAILY RF: 0 Rosuvastatin Calcium 40 MG tablet 40 mg PO DAILY RF: 0 sotalol [Betapace] 80 MG tablet 80 mg PO BID RF: 0 biotin 800 mcg Tablet 1 tab PO DAILY RF: 0 clopidogrel [Plavix] 75 mg Tablet 75 mg PO DAILY RF: 0 Discharge Data Discharge Date/Time-TO BE ENTERED AT DEPARTURE: 07/24/18 08:23 Medical Decision Making 52-year-old male with extensive coronary artery disease who is post procedure #3 following percutaneous stent placement this Tuesday at [facility]. He arrives with a day and a half of chest pain or pressure associated with rapid atrial fibrillation. Patient placed in a bus monitor, IV access established, referred for EKG, laboratory testing, portable chest x-ray. Patient started on a diltiazem drip for rate control. His labs reveal slightly elevated white blood cell count of 11, hematocrit 45, platelets 301. Troponin is elevated at 0.09 as is his BNP which is greater than 1000. Given the patient's recent cardiac cath, ongoing chest pain, and rapid Afib, case discussed with [facility] and patient accepted in transfer to Dr Rachel's service. ECG Data Attestation: I personally reviewed and interpreted this ECG (s) as follows: Interpretation: Atrial fibrillation that is rapid with a rate of 136. Do not appreciate ST segment elevation HPI General Mode of arrival: ambulatory. Date/Time Provider Initiated Documentation: 07/24/18 06:06. Limitations to Documentation: no limitations. Information obtained by: patient. History of Present Illness 52 year old M presents to the emergency department with the chief complaint of Chest pain, described as moderate and similar to prior episodes, Quality is described as dull, and is localized to the chest. Patient reports no radiation. Patient started experiencing this hour(s) and it has been constant. No relieving factors improve symptom(s), No exacerbating factors reported . Patient notes chest pain, headaches and weakness. Patient did receive the following treatments prior to arrival, none HPI Narrative: 52-year-old male with a history of extensive coronary artery disease who had percutaneous stent placement on this past Tuesday at [facility]. He states that yesterday he developed substernal chest pressure that worsened this morning. Associated with weakness and lightheadedness. He states he took his regular medications this morning and then presented to the emergency department due to ongoing discomfort Related Data Home Medications Medication Instructions Recorded Confirmed lansoprazole [Prevacid SoluTab] 30 mg PO DAILY 06/18/13 07/26/18 nitroglycerin [Nitrostat] 1 tab SUBLINGUAL Q5 MIN PRN X3 PRN 10/17/13 07/26/18 bupropion HCl 300 mg PO DAILY 10/16/15 07/26/18 isosorbide mononitrate 120 mg PO DAILY 10/16/15 07/26/18 aspirin 81 mg PO DAILY #90 tab-cap 04/22/17 07/26/18 multivitamin 1 ea PO DAILY 04/28/17 07/26/18 ascorbic acid (vitamin C) [Vitamin 1,000 mg PO DAILY 07/18/17 07/26/18 C] apixaban [Eliquis] 5 mg PO BID 30 Days #60 tab 02/24/18 07/26/18 Rosuvastatin Calcium 40 mg PO DAILY 05/09/18 07/26/18 sotalol [Betapace] 80 mg PO BID 05/09/18 07/26/18 biotin 1 tab PO DAILY 06/05/18 07/26/18 clopidogrel [Plavix] 75 mg PO DAILY 07/24/18 07/26/18 Previous Rx's Medication Instructions Recorded apixaban [Eliquis] 5 mg PO BID 30 Days #60 tab 02/24/18 Allergies Allergy/AdvReac Type Severity Reaction Status Date / Time atorvastatin calcium AdvReac Intermediate liver Unverified 07/26/18 06:27 [From Lipitor] problems niacin AdvReac Mild flushing Unverified 07/26/18 06:27 adhesive from monitor tabs Allergy Intermediate jones Uncoded 07/26/18 06:27 General Stated Complaint: Chest Pain MARQUIS: 3 Review of Systems Review of Systems 8 systems reviewed and otherwise negative Exam Narrative Exam Narrative: GEN: awake, alert, oriented 3. Pleasant, well groomed, interactive. HEAD: Normocephalic, atraumatic ENT: Mucous membranes moist, oropharynx unremarkable, External ear exam unremarkable EYES: PERRL, EOMI NECK: Full ROM, no CANDACE, no menigismus CHEST/RESP: Nontender, clear to auscultation bilateral, no wheeze/rhonchi/rales CARDIOVASCULAR: Tachycardic, irregularly irregular, no murmur, rub winter. 2+ Rad pulse bilateral ABDOMEN: Soft, nontender, no mass. +Bowel sounds EXT: Full ROM, no edema, no rash Neuro: Grossly normal neurologic exam, conversant, interactive. Psych: Speech fluent, thoughts congruent, affect slightly anxious Course Vital Signs Temperature 36.8 C 07/24/18 06:10 Pulse 69 07/24/18 06:10 Respiratory Rate 20 07/24/18 06:10 Blood Pressure 113/71 07/24/18 06:10 Pulse Oximetry 98 07/24/18 06:10 Temperature 36.8 C 07/24/18 06:10 Temperature Source Temporal Artery Scan 07/24/18 06:10 Pulse 69 07/24/18 06:10 Respiratory Rate 27 H 07/24/18 06:14 Respiratory Effort 07/24/18 06:14 Respiratory Depth Normal 07/24/18 06:14 Respiratory Pattern Normal 07/24/18 06:14 Blood Pressure 113/71 07/24/18 06:10 Pulse Oximetry 98 07/24/18 06:10 Oxygen Delivery Method Room Air 07/24/18 06:10 Oxygen Flow Rate 0 07/24/18 06:10 Pain Level 6 07/24/18 06:14
--- NOTE | 2018-07-24 06:27 | ED.GENADUL_ITS ---
Discharge Plan Disposition Patient Disposition: [facility] Condition: Improving Discharge Details Chief Complaint: Chest Pain Clinical Impression: Acute non-ST elevation myocardial infarction (NSTEMI) Primary Care Provider: Delonte Corral ED Provider: Mik Christy Home Meds and New Rx's Prescriptions: No Action aspirin 81 MG tablet,chewable 81 mg PO DAILY Qty: 90 RF: 4 ascorbic acid (vitamin C) [Vitamin C] 1,000 MG tablet 1,000 mg PO DAILY RF: 0 apixaban [Eliquis] 5 MG tablet 5 mg PO BID 30 Days Qty: 60 RF: 4 lansoprazole [Prevacid SoluTab] 30 MG tablet,disintegrat, delay rel 30 mg PO DAILY RF: 0 nitroglycerin [Nitrostat] 0.4 MG tablet, sublingual 1 tab Sublingual Q5 MIN PRN X3 PRNRF: 0 bupropion HCl 150 MG tablet extended release 12 hr 300 mg PO DAILY RF: 0 isosorbide mononitrate 120 MG tablet extended release 24 hr 120 mg PO DAILY RF: 0 multivitamin 1 EACH capsule 1 ea PO DAILY RF: 0 Rosuvastatin Calcium 40 MG tablet 40 mg PO DAILY RF: 0 sotalol [Betapace] 80 MG tablet 80 mg PO BID RF: 0 biotin 800 mcg Tablet 1 tab PO DAILY RF: 0 clopidogrel [Plavix] 75 mg Tablet 75 mg PO DAILY RF: 0 Discharge Data Discharge Date/Time-TO BE ENTERED AT DEPARTURE: 07/24/18 08:23 Medical Decision Making 52-year-old male with extensive coronary artery disease who is post procedure # 3 following percutaneous stent placement this Tuesday at [facility]. He arrives with a day and a half of chest pain or pressure associated with rapid atrial fibrillation. Patient placed in a gaming cashier, IV access established, referred for EKG, laboratory testing, portable chest x-ray. Patient started on a diltiazem drip for rate control. His labs reveal slightly elevated white blood cell count of 11, hematocrit 45, platelets 301. Troponin is elevated at 0.09 as is his BNP which is greater than 1000. Given the patient's recent cardiac cath, ongoing chest pain, and rapid Afib, case discussed with [facility] and patient accepted in transfer to Dr Rachel's service. ECG Data Attestation: I personally reviewed and interpreted this ECG (s) as follows: Interpretation: Atrial fibrillation that is rapid with a rate of 136. Do not appreciate ST segment elevation HPI General Mode of arrival: ambulatory . Date/Time Provider Initiated Documentation: 07/24/18 06:06 . Limitations to Documentation: no limitations . Information obtained by: patient . History of Present Illness 52 year old M presents to the emergency department with the chief complaint of Chest pain, described as moderate and similar to prior episodes, Quality is described as dull, and is localized to the chest. Patient reports no radiation. Patient started experiencing this hour(s) and it has been constant. No relieving factors improve symptom(s), No exacerbating factors reported . Patient notes chest pain, headaches and weakness. Patient did receive the following treatments prior to arrival, none HPI Narrative: 52-year-old male with a history of extensive coronary artery disease who had percutaneous stent placement on this past Tuesday at [facility]. He states that yesterday he developed substernal chest pressure that worsened this morning. Associated with weakness and lightheadedness. He states he took his regular medications this morning and then presented to the emergency department due to ongoing discomfort Related Data Home Medications Medication Instructions Recorded Confirmed lansoprazole [Prevacid SoluTab] 30 mg PO DAILY 06/18/13 07/26/18 nitroglycerin [Nitrostat] 1 tab SUBLINGUAL Q5 MIN PRN X3 PRN 10/17/13 07/26/18 bupropion HCl 300 mg PO DAILY 10/16/15 07/26/18 isosorbide mononitrate 120 mg PO DAILY 10/16/15 07/26/18 aspirin 81 mg PO DAILY #90 tab-cap 04/22/17 07/26/18 multivitamin 1 ea PO DAILY 04/28/17 07/26/18 ascorbic acid (vitamin C) [Vitamin 1,000 mg PO DAILY 07/18/17 07/26/18 C] apixaban [Eliquis] 5 mg PO BID 30 Days #60 tab 02/24/18 07/26/18 Rosuvastatin Calcium 40 mg PO DAILY 05/09/18 07/26/18 sotalol [Betapace] 80 mg PO BID 05/09/18 07/26/18 biotin 1 tab PO DAILY 06/05/18 07/26/18 clopidogrel [Plavix] 75 mg PO DAILY 07/24/18 07/26/18 Previous Rx's Medication Instructions Recorded apixaban [Eliquis] 5 mg PO BID 30 Days #60 tab 02/24/18 Allergies Allergy/AdvReac Type Severity Reaction Status Date / Time atorvastatin calcium AdvReac Intermediate liver Unverified 07/26/18 06:27 [From Lipitor] problems niacin AdvReac Mild flushing Unverified 07/26/18 06:27 adhesive from monitor tabs Allergy Intermediate jones Uncoded 07/26/18 06:27 General Stated Complaint: Chest Pain MARQUIS: 3 Review of Systems Review of Systems 8 systems reviewed and otherwise negative Exam Narrative Exam Narrative: GEN: awake, alert, oriented 3. Pleasant, well groomed, interactive. HEAD: Normocephalic, atraumatic ENT: Mucous membranes moist, oropharynx unremarkable, External ear exam unremarkable EYES: PERRL, EOMI NECK: Full ROM, no CANDACE, no menigismus CHEST/RESP: Nontender, clear to auscultation bilateral, no wheeze/rhonchi/rales CARDIOVASCULAR: Tachycardic, irregularly irregular, no murmur, rub winter. 2+ Rad pulse bilateral ABDOMEN: Soft, nontender, no mass. +Bowel sounds EXT: Full ROM, no edema, no rash Neuro: Grossly normal neurologic exam, conversant, interactive. Psych: Speech fluent, thoughts congruent, affect slightly anxious Course Vital Signs Temperature 36.8 C 07/24/18 06:10 Pulse 69 07/24/18 06:10 Respiratory Rate 20 07/24/18 06:10 Blood Pressure 113/71 07/24/18 06:10 Pulse Oximetry 98 07/24/18 06:10 Temperature 36.8 C 07/24/18 06:10 Temperature Source Temporal Artery Scan 07/24/18 06:10 Pulse 69 07/24/18 06:10 Respiratory Rate 27 H 07/24/18 06:14 Respiratory Effort 07/24/18 06:14 Respiratory Depth Normal 07/24/18 06:14 Respiratory Pattern Normal 07/24/18 06:14 Blood Pressure 113/71 07/24/18 06:10 Pulse Oximetry 98 07/24/18 06:10 Oxygen Delivery Method Room Air 07/24/18 06:10 Oxygen Flow Rate 0 07/24/18 06:10 Pain Level 6 07/24/18 06:14
[2018-07-24 06:32] LABS: Abs Immature Grans 0.04 k/cumm (0.0-0.09); Absolute Basophil Count 0.05 k/cumm (0.0-0.2); Absolute Eosinophil Count 0.29 k/cumm (0.0-0.7); Absolute Lymphocyte Count 2.53 k/cumm (1.2-3.4); Absolute Monocyte Count 1.03 k/cumm (0.11-0.7); Absolute Neutrophil Count 7.85 k/cumm (1.2-6.7); Basophils % 0.4; Eosinophils % 2.5; HCT 45.1 % (40.0-50.0); HGB 15.4 g/dL (13.5-17.5); Immature Grans % 0.3; Lymphocytes % 21.5; Mean Corp. HGB Concentration 34.1 g/dL (32.0-36.0); Mean Corpuscular Hemoglobin 30.9 pg (27.0-33.0); Mean Corpuscular Volume 90.6 fL (80-95); Mean Platelet Volume 9.5 fL (8.0-11.0); Monocytes % 8.7; Neutrophils % 66.6; Platelet Count 301 x1000/uL (130-400); RBC 4.98 m/cumm (4.50-6.00); RBC Distribution Width 13.7 % (11.8-14.1); White Blood Cell Count 11.79 k/cumm (4.4-10.8)
[2018-07-24 06:42] LABS: INR 1.1 (1.0-3.5); Prothrombin Time 10.5 sec (9.3-10.8)
[2018-07-24 06:51] LABS: ALT 23 U/L (12-78); AST 18 U/L (15-37); Albumin 3.3 g/dL (3.4-5.0); Alkaline Phosphatase 89 U/L (46-116); Anion Gap 10.9 mmol/L (3-11); BUN 18 mg/dL (7-18); Bilirubin, Total 0.2 mg/dL (0.2-1.0); CO2 24.1 mmol/L (21.0-32.0); CREATININE 1.08 mg/dL (0.70-1.30); Calcium 9.2 mg/dL (8.5-10.1); Chloride 102 mmol/L (98-107); Glucose 164 mg/dL (70-100); Magnesium 1.8 mg/dL (1.8-2.4); NT-proBNP 1068 pg/mL; Potassium 4.5 mmol/L (3.5-5.1); Sodium 137 mmol/L (136-145); Total Protein 7.7 g/dL (6.4-8.2)
[2018-07-24 06:52] LABS: Troponin I 0.09 ng/mL (0.00-0.06)
[2018-07-24] MEDS: Mylanta Suspension 30 ML CUP (07:20)
[2018-07-24] MEDS: Lidocaine 2% Viscous 15 ML CUP (07:21)
--- NOTE | 2018-07-24 07:25 | DI.VRAD_ITS ---
EXAM: XR Chest, 1 View EXAM DATE/TIME: 07/24/2018 6:23 AM CLINICAL HISTORY: 52 years old, male; Pain; Chest pain TECHNIQUE: XR of the chest, 1 view. COMPARISON: CR XR CHEST 2V PA LATERAL 06/05/2018 11:57 AM FINDINGS: Lungs: Unremarkable. No consolidation. Pleural space: Unremarkable. No pleural effusion. No pneumothorax. Heart/Mediastinum: Unremarkable. No cardiomegaly. Bones/joints: Unremarkable. IMPRESSION: No acute findings. Dictated and Authenticated by: Alma Lorenzo MD. Ordering:CHIKIS RINALDI MD
[2018-07-24] MEDS: MORPHine 10 MG/ML VIAL 2 MG IVP (07:58)
== END 2018-07-24 08:23 | disposition short-term general hospital (02) ==
PROVIDERS: Emergency Provider Emergency Medicine; PCP Internal Medicine
DX: I21.4 Non-ST elevation (NSTEMI) myocardial infarction (principal); I48.91 Unspecified atrial fibrillation; I25.10 Atherosclerotic heart disease of native coronary artery without angina pectoris; Z95.5 Presence of coronary angioplasty implant and graft; I25.2 Old myocardial infarction
CPT/HCPCS: 36415; 80053; 93005; 96365; 96375; 96376; 99285; 71045; 83735; 83880; 84484; 85025; 85610; 93010; J2270

== ENCOUNTER 2018-07-26 06:23 | Emergency (ER) | payer BC, SELFPAY ==
[2018-07-26 06:28] VITALS: BP 122/76; PULSE 62; RESP 16; TEMP 36.6; O2SAT 97
--- NOTE | 2018-07-26 06:50 | W.ED.GENAD ---
Discharge Plan Disposition Patient Disposition: HOME Discharge Details Clinical Impression: Heart palpitations Primary Care Provider: Delonte Corral ED Provider: Vinh Barton Home Meds and New Rx's Prescriptions: Continue aspirin 81 MG tablet,chewable 81 mg PO DAILY Qty: 90 RF: 4 ascorbic acid (vitamin C) [Vitamin C] 1,000 MG tablet 1,000 mg PO DAILY RF: 0 apixaban [Eliquis] 5 MG tablet 5 mg PO BID 30 Days Qty: 60 RF: 4 lansoprazole [Prevacid SoluTab] 30 MG tablet,disintegrat, delay rel 30 mg PO DAILY RF: 0 nitroglycerin [Nitrostat] 0.4 MG tablet, sublingual 1 tab Sublingual Q5 MIN PRN X3 PRNRF: 0 bupropion HCl 150 MG tablet extended release 12 hr 300 mg PO DAILY RF: 0 isosorbide mononitrate 120 MG tablet extended release 24 hr 120 mg PO DAILY RF: 0 multivitamin 1 EACH capsule 1 ea PO DAILY RF: 0 Rosuvastatin Calcium 40 MG tablet 40 mg PO DAILY RF: 0 sotalol [Betapace] 80 MG tablet 80 mg PO BID RF: 0 biotin 800 mcg Tablet 1 tab PO DAILY RF: 0 clopidogrel [Plavix] 75 mg Tablet 75 mg PO DAILY RF: 0 Discharge Instructions Instructions: Palpitations (ED) Additional Instructions: Please stop drinking coffee or any caffeine-containing products. Please contact your primary care physician to arrange follow-up. Please follow-up with your shell molding roller blast operator. Return to the ER for any worsening or new concerning symptoms. Referrals: Delonte Corral MD [Primary Care Provider] - Medical Decision Making 52-year-old male with multiple medical problems including coronary artery disease and atrial fibrillation, anticoagulated with Eliquis, here with palpitations and concern that he was in atrial fibrillation. Symptoms has resolved. He is not in atrial fibrillation. ECG reviewed and interpreted by me: Sinus bradycardia 58 bpm, incomplete right bundle branch block, normal axis, no STEMI, nondiagnostic. Patient recently had extensive workup about a week ago at [facility] for atrial fibrillation. He has follow-up scheduled with cardiology. I advised the patient to refrain from using any caffeine-containing products as these may potentially provoke arrhythmia. Patient was encouraged to follow-up with his shell molding roller blast operator and to call them today. He understands he should return to the emergency department immediately for any worsening or new concerning symptoms. HPI General Date/Time Provider Initiated Documentation: 07/26/18 06:50. Limitations to Documentation: no limitations. Information obtained by: patient. HPI Narrative: 52-year-old male with history of multiple medical problems including atrial fibrillation on Eliquis, right MCA CVA, coronary artery disease, status post 8 cardiac stents, [facility] cardiac catheterization report from October 2017 noted 2 vessel coronary artery disease of left circumflex and RCA and medical therapy was recommended, well-known to [facility] emergency department, here today with recent palpitations and concern for atrial fibrillation. Patient notes he was sitting in his car drinking a coffee this morning and started to have some palpitations. Symptoms felt like afib. Symptoms lasted about 1/2-hour and then resolved just prior to arrival here. No associated chest pain or shortness of breath. Otherwise feeling well. Of note, patient was recently seen here in the emergency department and sent to the department for atrial fibrillation. His amlodipine was discontinued. He has follow-up appointment with cardiology with plan for possible pacemaker/defibrillator. He is on Eliquis and continues on a beta-david. Related Data Home Medications Medication Instructions Recorded Confirmed lansoprazole [Prevacid SoluTab] 30 mg PO DAILY 06/18/13 07/26/18 nitroglycerin [Nitrostat] 1 tab SUBLINGUAL Q5 MIN PRN X3 PRN 10/17/13 07/26/18 bupropion HCl 300 mg PO DAILY 10/16/15 07/26/18 isosorbide mononitrate 120 mg PO DAILY 10/16/15 07/26/18 aspirin 81 mg PO DAILY #90 tab-cap 04/22/17 07/26/18 multivitamin 1 ea PO DAILY 04/28/17 07/26/18 ascorbic acid (vitamin C) [Vitamin 1,000 mg PO DAILY 07/18/17 07/26/18 C] apixaban [Eliquis] 5 mg PO BID 30 Days #60 tab 02/24/18 07/26/18 Rosuvastatin Calcium 40 mg PO DAILY 05/09/18 07/26/18 sotalol [Betapace] 80 mg PO BID 05/09/18 07/26/18 biotin 1 tab PO DAILY 06/05/18 07/26/18 clopidogrel [Plavix] 75 mg PO DAILY 07/24/18 07/26/18 Previous Rx's Medication Instructions Recorded apixaban [Eliquis] 5 mg PO BID 30 Days #60 tab 02/24/18 Allergies Allergy/AdvReac Type Severity Reaction Status Date / Time atorvastatin calcium AdvReac Intermediate liver Unverified 07/26/18 06:27 [From Lipitor] problems niacin AdvReac Mild flushing Unverified 07/26/18 06:27 adhesive from monitor tabs Allergy Intermediate jones Uncoded 07/26/18 06:27 General Stated Complaint: GenMedical MARQUIS: 3 Review of Systems Review of Systems All systems reviewed & are unremarkable except as noted in HPI and below PFSH Medical History Atrial fibrillation (Chronic) Anemia Back pain, chronic Chest pain Coronary artery disease Depression with anxiety Dysesthesia Dyslipidemia Dyspepsia Esophagitis Gastritis Hemiplegia History of kidney cancer Hx of adenomatous polyp of colon Ischemic stroke Pulmonary nodules Sleep apnea Tobacco use Social History Smoking/Tobacco Use Status: Current every day alcohol intake: never substance use type: does not use Surgical History Hx of esophagogastroduodenoscopy (Chronic ~05/2018) Colonoscopy - MAC (08/03/17) EGD - MAC (08/03/17) Partial Nephrectomy Repair of inguinal hernia cardiac cath Exam Const General: cooperative and no acute distress HENMT Head: normocephalic and atraumatic Mouth: moist mucous membranes Eyes Conjunctivae: normal conjunctivae Sclera: normal sclerae Neck Neck: trachea midline and supple Resp Auscultation: clear to auscultation bilaterally, no rales, no rhonchi and no wheezes Cardio Jugular venous pressure: no JVD Rate: regular rate and not tachycardic Rhythm: regular rhythm Skin General skin exam: other (dry) Neuro General: alert, awake, oriented x3 and tone normal Extrem General: no calf tenderness bilaterally and no edema Psych Appearance: grossly normal Mental Status: mental status grossly normal Speech and Movement: speech and movement normal Course Vital Signs Temperature 36.6 C 07/26/18 06:28 Pulse 62 07/26/18 06:28 Respiratory Rate 16 07/26/18 06:28 Blood Pressure 122/76 07/26/18 06:28 Pulse Oximetry 97 07/26/18 06:28 Temperature 36.6 C 07/26/18 06:28 Temperature Source Temporal Artery Scan 07/26/18 06:28 Pulse 62 07/26/18 06:28 Respiratory Rate 16 07/26/18 06:28 Respiratory Effort 07/26/18 06:28 Blood Pressure 122/76 07/26/18 06:28 Blood Pressure Position Sitting 07/26/18 06:28 Pulse Oximetry 97 07/26/18 06:28 Oxygen Delivery Method Room Air 07/26/18 06:28 Oxygen Flow Rate 0 07/26/18 06:28 Pain Level 1 07/26/18 06:28
--- NOTE | 2018-07-26 06:53 | ED.GENADUL_ITS ---
Discharge Plan Disposition Patient Disposition: HOME Discharge Details Clinical Impression: Heart palpitations Primary Care Provider: Delonte Corral ED Provider: Vinh Barton Home Meds and New Rx's Prescriptions: Continue aspirin 81 MG tablet,chewable 81 mg PO DAILY Qty: 90 RF: 4 ascorbic acid (vitamin C) [Vitamin C] 1,000 MG tablet 1,000 mg PO DAILY RF: 0 apixaban [Eliquis] 5 MG tablet 5 mg PO BID 30 Days Qty: 60 RF: 4 lansoprazole [Prevacid SoluTab] 30 MG tablet,disintegrat, delay rel 30 mg PO DAILY RF: 0 nitroglycerin [Nitrostat] 0.4 MG tablet, sublingual 1 tab Sublingual Q5 MIN PRN X3 PRNRF: 0 bupropion HCl 150 MG tablet extended release 12 hr 300 mg PO DAILY RF: 0 isosorbide mononitrate 120 MG tablet extended release 24 hr 120 mg PO DAILY RF: 0 multivitamin 1 EACH capsule 1 ea PO DAILY RF: 0 Rosuvastatin Calcium 40 MG tablet 40 mg PO DAILY RF: 0 sotalol [Betapace] 80 MG tablet 80 mg PO BID RF: 0 biotin 800 mcg Tablet 1 tab PO DAILY RF: 0 clopidogrel [Plavix] 75 mg Tablet 75 mg PO DAILY RF: 0 Discharge Instructions Instructions: Palpitations (ED) Additional Instructions: Please stop drinking coffee or any caffeine-containing products. Please contact your primary care physician to arrange follow-up. Please follow- up with your bi solutions architect. Return to the ER for any worsening or new concerning symptoms. Referrals: Delonte Corral MD [Primary Care Provider] - Medical Decision Making 52-year-old male with multiple medical problems including coronary artery disease and atrial fibrillation, anticoagulated with Eliquis, here with palpitations and concern that he was in atrial fibrillation. Symptoms has resolved. He is not in atrial fibrillation. ECG reviewed and interpreted by me: Sinus bradycardia 58 bpm, incomplete right bundle branch block, normal axis, no STEMI, nondiagnostic. Patient recently had extensive workup about a week ago [place] [facility] [place]. He has follow-up scheduled with cardiology. I advised the patient to refrain from using any caffeine-containing products as these may potentially provoke arrhythmia. Patient was encouraged to follow-up with his bi solutions architect and to call them today. He understands he should return to the emergency department immediately for any worsening or new concerning symptoms. HPI General Date/Time Provider Initiated Documentation: 07/26/18 06:50 . Limitations to Documentation: no limitations . Information obtained by: patient . HPI Narrative: 52-year-old male with history of multiple medical problems including atrial fibrillation on Eliquis, right MCA CVA, coronary artery disease , status post 8 cardiac stents, [facility] cardiac catheterization report from October 2017 noted 2 vessel coronary artery disease of left circumflex and RCA and medical therapy was recommended, well-known to [facility] emergency department, here today with recent palpitations and concern for atrial fibrillation. Patient notes he was sitting in his car drinking a coffee this morning and started to have some palpitations. Symptoms felt like afib. Symptoms lasted about 1/2-hour and then resolved just prior to arrival here. No associated chest pain or shortness of breath. Otherwise feeling well. Of note, patient was recently seen here in the emergency department and sent to the department for atrial fibrillation. His amlodipine was discontinued. He has follow-up appointment with cardiology with plan for possible pacemaker/defibrillator. He is on Eliquis and continues on a beta-david. Related Data Home Medications Medication Instructions Recorded Confirmed lansoprazole [Prevacid SoluTab] 30 mg PO DAILY 06/18/13 07/26/18 nitroglycerin [Nitrostat] 1 tab SUBLINGUAL Q5 MIN PRN X3 PRN 10/17/13 07/26/18 bupropion HCl 300 mg PO DAILY 10/16/15 07/26/18 isosorbide mononitrate 120 mg PO DAILY 10/16/15 07/26/18 aspirin 81 mg PO DAILY #90 tab-cap 04/22/17 07/26/18 multivitamin 1 ea PO DAILY 04/28/17 07/26/18 ascorbic acid (vitamin C) [Vitamin 1,000 mg PO DAILY 07/18/17 07/26/18 C] apixaban [Eliquis] 5 mg PO BID 30 Days #60 tab 02/24/18 07/26/18 Rosuvastatin Calcium 40 mg PO DAILY 05/09/18 07/26/18 sotalol [Betapace] 80 mg PO BID 05/09/18 07/26/18 biotin 1 tab PO DAILY 06/05/18 07/26/18 clopidogrel [Plavix] 75 mg PO DAILY 07/24/18 07/26/18 Previous Rx's Medication Instructions Recorded apixaban [Eliquis] 5 mg PO BID 30 Days #60 tab 02/24/18 Allergies Allergy/AdvReac Type Severity Reaction Status Date / Time atorvastatin calcium AdvReac Intermediate liver Unverified 07/26/18 06:27 [From Lipitor] problems niacin AdvReac Mild flushing Unverified 07/26/18 06:27 adhesive from monitor tabs Allergy Intermediate jones Uncoded 07/26/18 06:27 General Stated Complaint: GenMedical MARQUIS: 3 Review of Systems Review of Systems All systems reviewed & are unremarkable except as noted in HPI and below PFSH Medical History Atrial fibrillation (Chronic) Anemia Back pain, chronic Chest pain Coronary artery disease Depression with anxiety Dysesthesia Dyslipidemia Dyspepsia Esophagitis Gastritis Hemiplegia History of kidney cancer Hx of adenomatous polyp of colon Ischemic stroke Pulmonary nodules Sleep apnea Tobacco use Social History Smoking/Tobacco Use Status: Current every day alcohol intake: never substance use type: does not use Surgical History Hx of esophagogastroduodenoscopy (Chronic ~05/2018) Colonoscopy - MAC (08/03/17) EGD - MAC (08/03/17) Partial Nephrectomy Repair of inguinal hernia cardiac cath Exam Const General: cooperative and no acute distress HENMT Head: normocephalic and atraumatic Mouth: moist mucous membranes Eyes Conjunctivae: normal conjunctivae Sclera: normal sclerae Neck Neck: trachea midline and supple Resp Auscultation: clear to auscultation bilaterally, no rales, no rhonchi and no wheezes Cardio Jugular venous pressure: no JVD Rate: regular rate and not tachycardic Rhythm: regular rhythm Skin General skin exam: other (dry) Neuro General: alert, awake, oriented x3 and tone normal Extrem General: no calf tenderness bilaterally and no edema Psych Appearance: grossly normal Mental Status: mental status grossly normal Speech and Movement: speech and movement normal Course Vital Signs Temperature 36.6 C 07/26/18 06:28 Pulse 62 07/26/18 06:28 Respiratory Rate 16 07/26/18 06:28 Blood Pressure 122/76 07/26/18 06:28 Pulse Oximetry 97 07/26/18 06:28 Temperature 36.6 C 07/26/18 06:28 Temperature Source Temporal Artery Scan 07/26/18 06:28 Pulse 62 07/26/18 06:28 Respiratory Rate 16 07/26/18 06:28 Respiratory Effort 07/26/18 06:28 Blood Pressure 122/76 07/26/18 06:28 Blood Pressure Position Sitting 07/26/18 06:28 Pulse Oximetry 97 07/26/18 06:28 Oxygen Delivery Method Room Air 07/26/18 06:28 Oxygen Flow Rate 0 07/26/18 06:28 Pain Level 1 07/26/18 06:28
== END 2018-07-26 07:05 | disposition home or self-care (01) ==
LOC: ER 07:09
PROVIDERS: Emergency Provider Student in an Organized Health Care Education/Training Program; PCP Internal Medicine
DX: R00.2 Palpitations (principal); I48.91 Unspecified atrial fibrillation; Z79.01 Long term (current) use of anticoagulants; Z95.5 Presence of coronary angioplasty implant and graft
CPT/HCPCS: 93005; 99283; 93010

== ENCOUNTER 2018-07-26 14:37 | Emergency (ER) | payer BC, SELFPAY ==
[2018-07-26] VITALS (99 sets, daily range): BP systolic 81–165; BP diastolic 48–117; PULSE 46–153; RESP 11–35; TEMP 36.6; O2SAT 91–97
--- NOTE | 2018-07-26 14:56 | W.ED.GENAD ---
Discharge Plan Disposition Patient Disposition: HOME Condition: Fair Discharge Details Chief Complaint: Chest Pain Clinical Impression: Atrial fibrillation, Chest pain Reason For Visit: chest pain ? A fib Primary Care Provider: Delonte Corral ED Provider: Aliya Kothari Home Meds and New Rx's Prescriptions: Continue aspirin 81 MG tablet,chewable 81 mg PO DAILY Qty: 90 RF: 4 ascorbic acid (vitamin C) [Vitamin C] 1,000 MG tablet 1,000 mg PO DAILY RF: 0 apixaban [Eliquis] 5 MG tablet 5 mg PO BID 30 Days Qty: 60 RF: 4 lansoprazole [Prevacid SoluTab] 30 MG tablet,disintegrat, delay rel 30 mg PO DAILY RF: 0 nitroglycerin [Nitrostat] 0.4 MG tablet, sublingual 1 tab Sublingual Q5 MIN PRN X3 PRNRF: 0 bupropion HCl 150 MG tablet extended release 12 hr 300 mg PO DAILY RF: 0 isosorbide mononitrate 120 MG tablet extended release 24 hr 120 mg PO DAILY RF: 0 multivitamin 1 EACH capsule 1 ea PO DAILY RF: 0 Rosuvastatin Calcium 40 MG tablet 40 mg PO DAILY RF: 0 sotalol [Betapace] 80 MG tablet 80 mg PO BID RF: 0 biotin 800 mcg Tablet 1 tab PO DAILY RF: 0 clopidogrel [Plavix] 75 mg Tablet 75 mg PO DAILY RF: 0 Discharge Instructions Instructions: Atrial Fibrillation (ED), Chest Pain (ED) Additional Instructions: Encourage hydration. Stop smoking. Please take medication as previously prescribed. Please try to take sotalol 12 hours apart. Please follow-up with cardiology as previously scheduled, you may need to contact cardiology to discuss appointment times. If you develop new/worsening symptom chest pain or recurrent symptoms please seek care urgently once again. Please follow-up with primary care in 1 week Referrals: Delonte Corral MD [Primary Care Provider] - Medical Decision Making <Anish Donis NP - Last Filed: 07/26/18 18:16> Patient presenting to the emergency department for chief complaint of chest pain and irregular heartbeat. Patient states that this happened approximately 45 minutes prior to arrival. Patient was seen in the emergency department last night for similar episode but self resolved. Patient states that he occasionally has self resolution. Patient does state history of chest pain and atrial fibrillation with upcoming appointment with cardiology. Physical exam is positive for irregular heart rate otherwise no other obvious physical exam findings are noted. Patient is currently on Eliquis for atrial fibrillation that is paroxysmal so plan to use 15mg diltiazem. Also plan to check labs and give small fluid bolus due to soft blood pressure. Patient given morphine for some pain. Patient continually monitored and did have some slight rate reduction but not full reduction still running in the 1 teens so p.o. diltiazem was ordered of 60 mg. Review of initial labs shows negative initial troponin some slight increase of creatinine and anion gap so question of mild dehydration otherwise nondiagnostic labs. Plan to check delta troponin and consult with [facility] cardiology due to patient recently having cardiac catheterization due to elevation of troponin and unstable angina with history of atrial fibrillation that is paroxysmal. <MADELEINE Randle - Last Filed: 07/26/18 22:22> I assumed care of this patient with 4-hour troponin pending as well as pending consultation with [facility] cardiology. Care was transitioned to myself Justice Donis NP. Shortly after assuming care, laborer wrecking and salvaging from [facility] called back. He was able to review the EKG that was sent to him. He advised that he was seen at [facility] 2 days ago for elevated troponin. At that point, troponin was elevated to 0.09 on chart review. They advised that the bump of troponin was thought to be related to his rapid response atrial fibrillation as I do not find any ischemic source on his recent admission. They advised that once were able to control the patient's rate his symptoms greatly improved. Patient continues to endorse chest pain and not feeling well. 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 They reports that the sotalol was begun yesterday and did not recommend changing this as of yet to help with rate control. He advised the patient has upcoming follow-up with database software technician and that they would address this at that point and give the patient's medication time to work. Reports patient also has history of chronic angina. Advised continuing to aggressively treat the patient's right and give boluses as needed. Advised that the patient's ejection fraction was normal. Discussed these recommendations with the patient. He did seem quite frustrated with this. Would like to be converted out of atrial fibrillation. However, I did advise that he seems to be somebody that comes in and out of atrial fibrillation at this point rate control was recommended. Patient last took his sotalol at 0400 this morning, this is a every 12 hours dosing, the patient is 2 hours overdue. We will augment the oral diltiazem that has already been given with his typical dosing of p.o. sotalol. Patient continues to be on radiation monitor. Current rate 100s -115. Review documentation from discharge yesterday from [facility]. Patient did have PCI with stent placed on 07/21/2018. Had an echocardiogram on 07/24/2018 which was without significant change from 2017 compared to study. Repeat EKG as the patient's heart rate has come down. Current rate is 110. Patient continues to be in atrial fibrillation. Dr. Collazo had initially noted some depression on the lateral leads of the initial with a seem to be rate driven as this is subsided. EKG was reviewed by Dr. Collazo. He does not see any acute process, no ischemic findings noted. Repeat troponin normal, no upward trending. At this time, patient appears to be in NSR with rate in the 60s. Patient reports that he feels much improved. No longer having CP or symptoms. Repeat EKG reviewed by Dr. Christy, NSR, rate of 69, no ischemic changes noted. Discussed findings with the patient. ADvised on the recommendations of the laborer wrecking and salvaging. Patient has appointment next week with laborer wrecking and salvaging. At this point, there is no indication of acute ischemic process. Patient has been in and out of atrial fibrillation for the past several months with increased frequency. He has upcoming appointment with performance improvement specialist as well. I advised that he continue with his medications as previously prescribed. He will keep upcoming appointments. Advised he seek care urgently once again with new/worsening symptoms. All of his quesitons and concerns were addressed, he is in agreement iwth this plan. <Bladimir Collazo MD - Last Filed: 07/26/18 18:21> ECG Data Attestation: I personally reviewed and interpreted this ECG (s) as follows: Prior ECG tracings: not available for review Interpretation: atrial fibrillation, rate of 146, lateral st depressions 2nd ekg shows afib, rate of 110, right axis, no acute ischemic findings and no longer has st depressions with decreased rate <Mik Christy MD - Last Filed: 07/26/18 20:15> ECG Data Attestation: I personally reviewed and interpreted this ECG (s) as follows: Interpretation: Reviewed EKG for July 26, 2018, approximately 8:12 PM: normal sinus rhythm, rate of 69, no ST segment elevation HPI <Anish Donis NP - Last Filed: 07/26/18 18:16> General Mode of arrival: ambulatory. Date/Time Provider Initiated Documentation: 07/26/18 14:38. Limitations to Documentation: no limitations. Information obtained by: patient, RN notes reviewed and old records reviewed. History of Present Illness 52 year old M presents to the emergency department with the chief complaint of Chest Pain/palpations, described as severe, with intensity rated at 9. Quality is described as sharp, and is localized to the chest. Patient started experiencing this minute(s) (45) and it has been constant. No relieving factors improve symptom(s), Patient did receive the following treatments prior to arrival, none Related Data Home Medications Medication Instructions Recorded Confirmed lansoprazole [Prevacid SoluTab] 30 mg PO DAILY 06/18/13 07/26/18 nitroglycerin [Nitrostat] 1 tab SUBLINGUAL Q5 MIN PRN X3 PRN 10/17/13 07/26/18 bupropion HCl 300 mg PO DAILY 10/16/15 07/26/18 isosorbide mononitrate 120 mg PO DAILY 10/16/15 07/26/18 aspirin 81 mg PO DAILY #90 tab-cap 04/22/17 07/26/18 multivitamin 1 ea PO DAILY 04/28/17 07/26/18 ascorbic acid (vitamin C) [Vitamin 1,000 mg PO DAILY 07/18/17 07/26/18 C] apixaban [Eliquis] 5 mg PO BID 30 Days #60 tab 02/24/18 07/26/18 Rosuvastatin Calcium 40 mg PO DAILY 05/09/18 07/26/18 sotalol [Betapace] 80 mg PO BID 05/09/18 07/26/18 biotin 1 tab PO DAILY 06/05/18 07/26/18 clopidogrel [Plavix] 75 mg PO DAILY 10/29/18 10/31/18 Previous Rx's Medication Instructions Recorded apixaban [Eliquis] 5 mg PO BID 30 Days #60 tab 02/24/18 Allergies Allergy/AdvReac Type Severity Reaction Status Date / Time atorvastatin calcium AdvReac Intermediate liver Unverified 07/26/18 06:27 [From Lipitor] problems niacin AdvReac Mild flushing Unverified 07/26/18 06:27 adhesive from monitor tabs Allergy Intermediate jones Uncoded 07/26/18 06:27 General Stated Complaint: Chest Pain MARQUIS: 2 Review of Systems <Anish Donis NP - Last Filed: 07/26/18 18:16> Constitutional Denies chills, Reports fatigue and Denies fever(s) Cardiovascular Reports as per HPI, Reports chest pain, Denies diaphoresis, Denies syncope, Reports rapid heart rate, Reports irregular heart rhythm, Reports radiating jaw, neck or arm pain and Reports dyspnea Respiratory Denies cough and Reports dyspnea Gastrointestinal Denies abdominal pain and Denies vomiting Musculoskeletal Reports arthralgias (upper arms) Neurologic Denies syncope Endocrine Reports fatigue Exam <MAIRA Kidd Last Filed: 07/26/18 18:16> Const General: cooperative, acute distress moderate and not diaphoretic Orientation: alert, awake and oriented x3 Neck Neck: normal visual inspection, full ROM, trachea midline and supple Resp Effort & Inspection: normal respiratory effort, able to speak in complete sentences and no respiratory distress Auscultation: clear to auscultation bilaterally Cardio Jugular venous pressure: no JVD Rate: tachycardic Rhythm: abnormal rhythm irregularly irregular Heart Sounds: S1 normal, S2 normal, no click, no gallops, no murmurs and no rubs Pulses: radial pulses present Skin General skin exam: no rashes or lesions noted Neuro General: alert, awake, oriented x3, gait normal, moves all extremities and no focal motor deficits Course <MAIRA Kidd Last Filed: 07/26/18 18:16> Vital Signs Temperature 36.6 C 07/26/18 14:46 Pulse 153 H 07/26/18 14:46 Respiratory Rate 19 07/26/18 14:46 Blood Pressure 107/68 07/26/18 14:46 Pulse Oximetry 96 07/26/18 14:46 Temperature 36.6 C 10/31/18 14:46 Pulse 153 H 07/26/18 14:46 Respiratory Rate 19 07/26/18 14:46 Respiratory Effort 07/26/18 14:50 Blood Pressure 107/68 07/26/18 14:46 Pulse Oximetry 96 07/26/18 14:46 Oxygen Delivery Method Room Air 07/26/18 14:46 Oxygen Flow Rate 0 07/26/18 14:46 Sign Out <Anish Donis NP - Last Filed: 07/26/18 18:16> Sign Out Data: Sign Out Comment: Pending results of delta troponin and cardiology consultation care patient was transferred to [facility]. Currently we are pending results, disposition, and any further treatment or stabilization as needed. Patient's current heart rate is averaging in the low 100s with some occasional elevation into the 115s and down to the 80s. Last updated by Anish Donis NP at 07/26/18 17:14
--- NOTE | 2018-07-26 15:02 | ED.GENADUL_ITS ---
Discharge Plan Disposition Patient Disposition: HOME Condition: Fair Discharge Details Chief Complaint: Chest Pain Clinical Impression: Atrial fibrillation, Chest pain Reason For Visit: chest pain ? A fib Primary Care Provider: Delonte Corral ED Provider: Aliya Kothari Home Meds and New Rx's Prescriptions: Continue aspirin 81 MG tablet,chewable 81 mg PO DAILY Qty: 90 RF: 4 ascorbic acid (vitamin C) [Vitamin C] 1,000 MG tablet 1,000 mg PO DAILY RF: 0 apixaban [Eliquis] 5 MG tablet 5 mg PO BID 30 Days Qty: 60 RF: 4 lansoprazole [Prevacid SoluTab] 30 MG tablet,disintegrat, delay rel 30 mg PO DAILY RF: 0 nitroglycerin [Nitrostat] 0.4 MG tablet, sublingual 1 tab Sublingual Q5 MIN PRN X3 PRNRF: 0 bupropion HCl 150 MG tablet extended release 12 hr 300 mg PO DAILY RF: 0 isosorbide mononitrate 120 MG tablet extended release 24 hr 120 mg PO DAILY RF: 0 multivitamin 1 EACH capsule 1 ea PO DAILY RF: 0 Rosuvastatin Calcium 40 MG tablet 40 mg PO DAILY RF: 0 sotalol [Betapace] 80 MG tablet 80 mg PO BID RF: 0 biotin 800 mcg Tablet 1 tab PO DAILY RF: 0 clopidogrel [Plavix] 75 mg Tablet 75 mg PO DAILY RF: 0 Discharge Instructions Instructions: Atrial Fibrillation (ED), Chest Pain (ED) Additional Instructions: Encourage hydration. Stop smoking. Please take medication as previously prescribed. Please try to take sotalol 12 hours apart. Please follow-up with cardiology as previously scheduled, you may need to contact cardiology to discuss appointment times. If you develop new/worsening symptom chest pain or recurrent symptoms please seek care urgently once again. Please follow-up with primary care in 1 week Referrals: Delonte Corral MD [Primary Care Provider] - Medical Decision Making <Anish Donis NP - Last Filed: 07/26/18 18:16> Patient presenting to the emergency department for chief complaint of chest pain and irregular heartbeat. Patient states that this happened approximately 45 minutes prior to arrival. Patient was seen in the emergency department last night for similar episode but self resolved. Patient states that he occasionally has self resolution. Patient does state history of chest pain and atrial fibrillation with upcoming appointment with cardiology. Physical exam is positive for irregular heart rate otherwise no other obvious physical exam findings are noted. Patient is currently on Eliquis for atrial fibrillation that is paroxysmal so plan to use 15mg diltiazem. Also plan to check labs and give small fluid bolus due to soft blood pressure. Patient given morphine for some pain. Patient continually monitored and did have some slight rate reduction but not full reduction still running in the 1 teens so p.o. diltiazem was ordered of 60 mg. Review of initial labs shows negative initial troponin some slight increase of creatinine and anion gap so question of mild dehydration otherwise nondiagnostic labs. Plan to check delta troponin and consult with [facility] cardiology due to patient recently having cardiac catheterization due to elevation of troponin and unstable angina with history of atrial fibrillation that is paroxysmal. <MADELEINE Randle - Last Filed: 07/26/18 22:22> I assumed care of this patient with 4-hour troponin pending as well as pending consultation with [facility] cardiology. Care was transitioned to myself Justice Donis NP. Shortly after assuming care, travel agent from [facility] called back. He was able to review the EKG that was sent to him. He advised that he was seen at [facility] 2 days ago for elevated troponin. At that point, troponin was elevated to 0.09 on chart review. They advised that the bump of troponin was thought to be related to his rapid response atrial fibrillation as I do not find any ischemic source on his recent admission. They advised that once were able to control the patient's rate his symptoms greatly improved. Patient continues to endorse chest pain and not feeling well. 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 They reports that the sotalol was begun yesterday and did not recommend changing this as of yet to help with rate control. He advised the patient has upcoming follow-up with heavy truck mechanic and that they would address this at that point and give the patient's medication time to work. Reports patient also has history of chronic angina. Advised continuing to aggressively treat the patient's right and give boluses as needed. Advised that the patient's ejection fraction was normal. Discussed these recommendations with the patient. He did seem quite frustrated with this. Would like to be converted out of atrial fibrillation. However, I did advise that he seems to be somebody that comes in and out of atrial fibrillation at this point rate control was recommended. Patient last took his sotalol at 0400 this morning, this is a every 12 hours dosing, the patient is 2 hours overdue. We will augment the oral diltiazem that has already been given with his typical dosing of p.o. sotalol. Patient continues to be on monitoring analyst. Current rate 100s -115. Review documentation from discharge yesterday from [facility]. Patient did have PCI with stent placed on 07/21/2018. Had an echocardiogram on 07/24/2018 which was without significant change from 2017 compared to study. Repeat EKG as the patient's heart rate has come down. Current rate is 110. Patient continues to be in atrial fibrillation. Dr. Collazo had initially noted some depression on the lateral leads of the initial with a seem to be rate driven as this is subsided. EKG was reviewed by Dr. Collazo. He does not see any acute process, no ischemic findings noted. Repeat troponin normal, no upward trending. At this time, patient appears to be in NSR with rate in the 60s. Patient reports that he feels much improved. No longer having CP or symptoms. Repeat EKG reviewed by Dr. Christy, NSR, rate of 69, no ischemic changes noted. Discussed findings with the patient. ADvised on the recommendations of the travel agent. Patient has appointment next week with travel agent. At this point , there is no indication of acute ischemic process. Patient has been in and out of atrial fibrillation for the past several months with increased frequency. He has upcoming appointment with program production specialist as well. I advised that he continue with his medications as previously prescribed. He will keep upcoming appointments. Advised he seek care urgently once again with new/worsening symptoms. All of his quesitons and concerns were addressed, he is in agreement iwth this plan. <Bladimir Collazo MD - Last Filed: 07/26/18 18:21> ECG Data Attestation: I personally reviewed and interpreted this ECG (s) as follows: Prior ECG tracings: not available for review Interpretation: atrial fibrillation, rate of 146, lateral st depressions 2nd ekg shows afib, rate of 110, right axis, no acute ischemic findings and no longer has st depressions with decreased rate <Mik Christy MD - Last Filed: 07/26/18 20:15> ECG Data Attestation: I personally reviewed and interpreted this ECG (s) as follows: Interpretation: Reviewed EKG for July 26, 2018, approximately 8:12 PM: normal sinus rhythm, rate of 69, no ST segment elevation HPI <Anish Donis NP - Last Filed: 07/26/18 18:16> General Mode of arrival: ambulatory . Date/Time Provider Initiated Documentation: 07/26/18 14:38 . Limitations to Documentation: no limitations . Information obtained by: patient, RN notes reviewed and old records reviewed . History of Present Illness 52 year old M presents to the emergency department with the chief complaint of Chest Pain/palpations, described as severe, with intensity rated at 9. Quality is described as sharp, and is localized to the chest. Patient started experiencing this minute(s) (45) and it has been constant. No relieving factors improve symptom(s), Patient did receive the following treatments prior to arrival, none Related Data Home Medications Medication Instructions Recorded Confirmed lansoprazole [Prevacid SoluTab] 30 mg PO DAILY 06/18/13 07/26/18 nitroglycerin [Nitrostat] 1 tab SUBLINGUAL Q5 MIN PRN X3 PRN 10/17/13 07/26/18 bupropion HCl 300 mg PO DAILY 10/16/15 07/26/18 isosorbide mononitrate 120 mg PO DAILY 10/16/15 07/26/18 aspirin 81 mg PO DAILY #90 tab-cap 04/22/17 07/26/18 multivitamin 1 ea PO DAILY 04/28/17 07/26/18 ascorbic acid (vitamin C) [Vitamin 1,000 mg PO DAILY 07/18/17 07/26/18 C] apixaban [Eliquis] 5 mg PO BID 30 Days #60 tab 02/24/18 07/26/18 Rosuvastatin Calcium 40 mg PO DAILY 05/09/18 07/26/18 sotalol [Betapace] 80 mg PO BID 05/09/18 07/26/18 biotin 1 tab PO DAILY 06/05/18 07/26/18 clopidogrel [Plavix] 75 mg PO DAILY 10/29/18 10/31/18 Previous Rx's Medication Instructions Recorded apixaban [Eliquis] 5 mg PO BID 30 Days #60 tab 02/24/18 Allergies Allergy/AdvReac Type Severity Reaction Status Date / Time atorvastatin calcium AdvReac Intermediate liver Unverified 07/26/18 06:27 [From Lipitor] problems niacin AdvReac Mild flushing Unverified 07/26/18 06:27 adhesive from monitor tabs Allergy Intermediate jones Uncoded 07/26/18 06:27 General Stated Complaint: Chest Pain MARQUIS: 2 Review of Systems <Anish Donis NP - Last Filed: 07/26/18 18:16> Constitutional Denies chills, Reports fatigue and Denies fever(s) Cardiovascular Reports as per HPI, Reports chest pain, Denies diaphoresis, Denies syncope, Reports rapid heart rate, Reports irregular heart rhythm, Reports radiating jaw , neck or arm pain and Reports dyspnea Respiratory Denies cough and Reports dyspnea Gastrointestinal Denies abdominal pain and Denies vomiting Musculoskeletal Reports arthralgias (upper arms) Neurologic Denies syncope Endocrine Reports fatigue Exam <MAIRA Kidd Last Filed: 07/26/18 18:16> Const General: cooperative, acute distress moderate and not diaphoretic Orientation: alert, awake and oriented x3 Neck Neck: normal visual inspection, full ROM, trachea midline and supple Resp Effort & Inspection: normal respiratory effort, able to speak in complete sentences and no respiratory distress Auscultation: clear to auscultation bilaterally Cardio Jugular venous pressure: no JVD Rate: tachycardic Rhythm: abnormal rhythm irregularly irregular Heart Sounds: S1 normal, S2 normal, no click, no gallops, no murmurs and no rubs Pulses: radial pulses present Skin General skin exam: no rashes or lesions noted Neuro General: alert, awake, oriented x3, gait normal, moves all extremities and no focal motor deficits Course <MAIRA Kidd Last Filed: 07/26/18 18:16> Vital Signs Temperature 36.6 C 07/26/18 14:46 Pulse 153 H 07/26/18 14:46 Respiratory Rate 19 07/26/18 14:46 Blood Pressure 107/68 07/26/18 14:46 Pulse Oximetry 96 07/26/18 14:46 Temperature 36.6 C 10/31/18 14:46 Pulse 153 H 07/26/18 14:46 Respiratory Rate 19 07/26/18 14:46 Respiratory Effort 07/26/18 14:50 Blood Pressure 107/68 07/26/18 14:46 Pulse Oximetry 96 07/26/18 14:46 Oxygen Delivery Method Room Air 07/26/18 14:46 Oxygen Flow Rate 0 07/26/18 14:46 Sign Out <Anish Donis NP - Last Filed: 07/26/18 18:16> Sign Out Data: Sign Out Comment: Pending results of delta troponin and cardiology consultation care patient was transferred to [facility]. Currently we are pending results, disposition, and any further treatment or stabilization as needed. Patient's current heart rate is averaging in the low 100s with some occasional elevation into the 115s and down to the 80s. Last updated by Anish Donis NP at 07/26/18 17:14
[2018-07-26] MEDS: Normal Saline 250 ML IV (15:20)
[2018-07-26] MEDS: MORPHine 10 MG/ML VIAL 4 MG IVP (15:26)
[2018-07-26 15:31] LABS: Abs Immature Grans 0.04 k/cumm (0.0-0.09); Absolute Basophil Count 0.04 k/cumm (0.0-0.2); Absolute Lymphocyte Count 2.84 k/cumm (1.2-3.4); Absolute Monocyte Count 0.58 k/cumm (0.11-0.7); Absolute Neutrophil Count 8.92 k/cumm (1.2-6.7); Basophils % 0.3; Eosinophils % 1.7; HCT 40.5 % (40.0-50.0); Immature Grans % 0.3; Lymphocytes % 22.5; Mean Corp. HGB Concentration 34.6 g/dL (32.0-36.0); Mean Corpuscular Hemoglobin 30.6 pg (27.0-33.0); Mean Corpuscular Volume 88.6 fL (80-95); Mean Platelet Volume 9.3 fL (8.0-11.0); Monocytes % 4.6; Neutrophils % 70.6; Platelet Count 277 x1000/uL (130-400); RBC 4.57 m/cumm (4.50-6.00); RBC Distribution Width 13.1 % (11.8-14.1); White Blood Cell Count 12.64 k/cumm (4.4-10.8)
[2018-07-26 15:36] LABS: Absolute Eosinophil Count 0.21 k/cumm (0.0-0.7)
[2018-07-26 15:45] LABS: INR 1.1 (1.0-3.5); PTT Activated 30.7 sec (21.0-31.4); Prothrombin Time 10.7 sec (9.3-10.8)
[2018-07-26 15:53] LABS: ALT 23 U/L (12-78); AST 16 U/L (15-37); Albumin 3.3 g/dL (3.4-5.0); Alkaline Phosphatase 80 U/L (46-116); Anion Gap 12.1 mmol/L (3-11); BUN 21 mg/dL (7-18); Bilirubin, Total 0.3 mg/dL (0.2-1.0); CO2 22.9 mmol/L (21.0-32.0); CREATININE 1.23 mg/dL (0.70-1.30); Calcium 9.2 mg/dL (8.5-10.1); Chloride 103 mmol/L (98-107); Glucose 135 mg/dL (70-100); Magnesium 1.8 mg/dL (1.8-2.4); NT-proBNP 63 pg/mL; Potassium 3.5 mmol/L (3.5-5.1); Sodium 138 mmol/L (136-145); Total Protein 7.2 g/dL (6.4-8.2)
[2018-07-26 15:56] LABS: Troponin I < 0.02 ng/mL (0.00-0.06)
[2018-07-26] MEDS: Aspirin 325 MG TAB PO (17:09)
[2018-07-26 19:37] LABS: Troponin I 0.02 ng/mL (0.00-0.06)
== END 2018-07-26 20:27 | disposition home or self-care (01) ==
PROVIDERS: Nurse Practitioner Family; Emergency Provider Physician Assistant; PCP Internal Medicine
DX: I48.91 Unspecified atrial fibrillation (principal); R07.9 Chest pain, unspecified
CPT/HCPCS: 36415; 80053; 93005; 96361; 96374; 96375; 99285; 83735; 83880; 84484; 85025; 85610; 85730; 93010; J2270

== ENCOUNTER 2018-07-28 08:25 | Emergency (ER) | payer BC, SELFPAY ==
[2018-07-28 08:33] VITALS: BP 124/84; PULSE 61; RESP 18; TEMP 36.3; O2SAT 97
--- NOTE | 2018-07-28 08:36 | NUR.NOTE ---
MD Barton is at the bedside.
--- NOTE | 2018-07-28 08:48 | W.ED.GENAD ---
Discharge Plan Disposition Patient Disposition: HOME Discharge Details Chief Complaint: Chest Pain Clinical Impression: Chest pain, Paresthesia of right arm and leg Primary Care Provider: Delonte Corral ED Provider: Vinh Barton Home Meds and New Rx's Prescriptions: Continue aspirin 81 MG tablet,chewable 81 mg PO DAILY Qty: 90 RF: 4 ascorbic acid (vitamin C) [Vitamin C] 1,000 MG tablet 1,000 mg PO DAILY RF: 0 apixaban [Eliquis] 5 MG tablet 5 mg PO BID 30 Days Qty: 60 RF: 4 lansoprazole [Prevacid SoluTab] 30 MG tablet,disintegrat, delay rel 30 mg PO DAILY RF: 0 nitroglycerin [Nitrostat] 0.4 MG tablet, sublingual 1 tab Sublingual Q5 MIN PRN X3 PRNRF: 0 bupropion HCl 150 MG tablet extended release 12 hr 300 mg PO DAILY RF: 0 isosorbide mononitrate 120 MG tablet extended release 24 hr 120 mg PO DAILY RF: 0 multivitamin 1 EACH capsule 1 ea PO DAILY RF: 0 Rosuvastatin Calcium 40 MG tablet 40 mg PO DAILY RF: 0 sotalol [Betapace] 80 MG tablet 80 mg PO BID RF: 0 biotin 800 mcg Tablet 1 tab PO DAILY RF: 0 clopidogrel [Plavix] 75 mg Tablet 75 mg PO DAILY RF: 0 Discharge Instructions Instructions: Transient Ischemic Attack (ED), Chest Pain (ED) Additional Instructions: Please contact your primary care physician, cardiology, and neurology to arrange follow-up. Call today. Return to the ER for any worsening or new concerning symptoms. Referrals: Rachael Fuller MD [MD CONSULTING PHYSICIAN] - Delonte Corral MD [Primary Care Provider] - Aviva Gilbert MD [ [facility] STAFF PHYSICIAN] - Discharge Data Discharge Date/Time-TO BE ENTERED AT DEPARTURE: 07/28/18 13:18 Medical Decision Making 8:55 --52-year-old male with multiple medical problems including history of CVA, coronary artery disease status post multiple stents, atrial fibrillation, frequent ED visits of recent, presents with dizziness, chest pressure intermittent since yesterday, no complaint of weakness or numbness but does have apparent mild right-sided weakness and paresthesias on exam. It is unclear to me if etiology is actual organic disease. Patient certainly has anxiety about his medical conditions. ECG reviewed and interpreted by me: Sinus rhythm 60 bpm, normal axis, no STEMI, no A. fib, nondiagnostic. Unclear onset of symptoms as patient was not aware of neuro deficits. Plan to CT head as well as CTA head and neck. Will check trop. 13:08 -- Labs reviewed. Hypomag noted. Patient given magnesium 1 g IV. Troponin and delta troponin neg. CT of the head and CTA of the head and neck interpreted by radiology: Negative Patient reassessed and symptoms resolved. He is feeling better. Usual and customary discharge instructions were provided. 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 I will also refer him to neurology. He was encouraged to return should have any worsening or new concerning symptoms. HPI General Mode of arrival: ambulatory. Date/Time Provider Initiated Documentation: 07/28/18 08:30. Limitations to Documentation: no limitations. Information obtained by: patient. HPI Narrative: 52-year-old male with history of multiple medical problems including atrial fibrillation on Eliquis, right MCA CVA, coronary artery disease, status post 8 cardiac stents, [facility] cardiac catheterization report from October 2017 noted 2 vessel coronary artery disease of left circumflex and RCA and medical therapy was recommended, well-known to [facility] emergency department, here today with chief complaint of chest pressure. Patient notes that he started having chest discomfort this am. Symptoms are moderate. No modifiers. He has assoc lightheadedness and sensations of chills with diaphoresis intermittently since yesterday. This morning he has lightheadedness. Patient denies weakness or numbness. He has follow-up appointment with cardiology with plan for possible pacemaker/defibrillator. He is on Eliquis and continues on a beta-david. Related Data Home Medications Medication Instructions Recorded Confirmed lansoprazole [Prevacid SoluTab] 30 mg PO DAILY 06/18/13 07/26/18 nitroglycerin [Nitrostat] 1 tab SUBLINGUAL Q5 MIN PRN X3 PRN 10/17/13 07/26/18 bupropion HCl 300 mg PO DAILY 10/16/15 07/26/18 isosorbide mononitrate 120 mg PO DAILY 10/16/15 07/26/18 aspirin 81 mg PO DAILY #90 tab-cap 04/22/17 07/26/18 multivitamin 1 ea PO DAILY 04/28/17 07/26/18 ascorbic acid (vitamin C) [Vitamin 1,000 mg PO DAILY 07/18/17 07/26/18 C] apixaban [Eliquis] 5 mg PO BID 30 Days #60 tab 02/24/18 07/26/18 Rosuvastatin Calcium 40 mg PO DAILY 05/09/18 07/26/18 sotalol [Betapace] 80 mg PO BID 05/09/18 07/26/18 biotin 1 tab PO DAILY 06/05/18 07/26/18 clopidogrel [Plavix] 75 mg PO DAILY 07/24/18 07/26/18 Previous Rx's Medication Instructions Recorded apixaban [Eliquis] 5 mg PO BID 30 Days #60 tab 02/24/18 Allergies Allergy/AdvReac Type Severity Reaction Status Date / Time atorvastatin calcium AdvReac Intermediate liver Unverified 08/03/18 06:33 [From Lipitor] problems niacin AdvReac Mild flushing Unverified 08/03/18 06:33 adhesive from monitor tabs Allergy Intermediate jones Uncoded 08/03/18 06:33 General Stated Complaint: Chest Pain MARQUIS: 2 Review of Systems Review of Systems All systems reviewed & are unremarkable except as noted in HPI and below Psychiatric Reports anxiety Exam Const General: cooperative and no acute distress HENNV Head: normocephalic and atraumatic Mouth: moist mucous membranes Eyes Conjunctivae: normal conjunctivae Sclera: normal sclerae EOM: EOM intact bilaterally Neck Neck: trachea midline and supple Resp Auscultation: clear to auscultation bilaterally, no rales, no rhonchi and no wheezes Cardio Jugular venous pressure: no JVD Rate: regular rate and not tachycardic Rhythm: regular rhythm Heart Sounds: no gallops, no murmurs and no rubs GI Palpation: soft, not firm, no guarding, no masses, not rigid and nontender Skin General skin exam: no rashes or lesions noted Neuro General: alert, awake, oriented x3 and tone normal Cognition: normal cognition Speech: speech normal Gait: normal gait Motor: strength abnormal (4/5 RUE and RLE) Sensory Exam: lower extremity right light-touch abnormal (tingling) and upper extremity right light-touch abnormal (tingling) Extrem General: no calf tenderness bilaterally and no edema Psych Appearance: grossly normal Mental Status: mental status grossly normal Speech and Movement: speech and movement normal Course Vital Signs Temperature 36.3 C L 07/28/18 08:33 Pulse 61 07/28/18 08:33 Respiratory Rate 18 07/28/18 08:33 Blood Pressure 124/84 07/28/18 08:33 Pulse Oximetry 97 07/28/18 08:33 Temperature 36.3 C L 07/28/18 08:33 Temperature Source Temporal Artery Scan 07/28/18 08:33 Pulse 61 07/28/18 08:33 Respiratory Rate 18 07/28/18 08:33 Respiratory Effort 07/28/18 08:38 Blood Pressure 124/84 07/28/18 08:33 Pulse Oximetry 97 07/28/18 08:33 Oxygen Delivery Method Room Air 07/28/18 08:33 Oxygen Flow Rate 0 07/28/18 08:33 Pain Level 6 07/28/18 08:33
[2018-07-28 08:57] LABS: Abs Immature Grans 0.02 k/cumm (0.0-0.09); Absolute Basophil Count 0.04 k/cumm (0.0-0.2); Absolute Eosinophil Count 0.22 k/cumm (0.0-0.7); Absolute Lymphocyte Count 2.41 k/cumm (1.2-3.4); Absolute Monocyte Count 0.69 k/cumm (0.11-0.7); Absolute Neutrophil Count 5.75 k/cumm (1.2-6.7); Basophils % 0.4; Eosinophils % 2.4; HCT 38.6 % (40.0-50.0); HGB 13.2 g/dL (13.5-17.5); Immature Grans % 0.2; Lymphocytes % 26.4; Mean Corp. HGB Concentration 34.2 g/dL (32.0-36.0); Mean Corpuscular Hemoglobin 31.3 pg (27.0-33.0); Mean Corpuscular Volume 91.5 fL (80-95); Mean Platelet Volume 9.4 fL (8.0-11.0); Monocytes % 7.6; Platelet Count 285 x1000/uL (130-400); RBC 4.22 m/cumm (4.50-6.00); RBC Distribution Width 13.3 % (11.8-14.1); White Blood Cell Count 9.13 k/cumm (4.4-10.8)
--- NOTE | 2018-07-28 08:59 | ED.GENADUL_ITS ---
Discharge Plan Disposition Patient Disposition: HOME Discharge Details Chief Complaint: Chest Pain Clinical Impression: Chest pain, Paresthesia of right arm and leg Primary Care Provider: Delonte Corral ED Provider: Vinh Barton Home Meds and New Rx's Prescriptions: Continue aspirin 81 MG tablet,chewable 81 mg PO DAILY Qty: 90 RF: 4 ascorbic acid (vitamin C) [Vitamin C] 1,000 MG tablet 1,000 mg PO DAILY RF: 0 apixaban [Eliquis] 5 MG tablet 5 mg PO BID 30 Days Qty: 60 RF: 4 lansoprazole [Prevacid SoluTab] 30 MG tablet,disintegrat, delay rel 30 mg PO DAILY RF: 0 nitroglycerin [Nitrostat] 0.4 MG tablet, sublingual 1 tab Sublingual Q5 MIN PRN X3 PRNRF: 0 bupropion HCl 150 MG tablet extended release 12 hr 300 mg PO DAILY RF: 0 isosorbide mononitrate 120 MG tablet extended release 24 hr 120 mg PO DAILY RF: 0 multivitamin 1 EACH capsule 1 ea PO DAILY RF: 0 Rosuvastatin Calcium 40 MG tablet 40 mg PO DAILY RF: 0 sotalol [Betapace] 80 MG tablet 80 mg PO BID RF: 0 biotin 800 mcg Tablet 1 tab PO DAILY RF: 0 clopidogrel [Plavix] 75 mg Tablet 75 mg PO DAILY RF: 0 Discharge Instructions Instructions: Transient Ischemic Attack (ED), Chest Pain (ED) Additional Instructions: Please contact your primary care physician, cardiology, and neurology to arrange follow-up. Call today. Return to the ER for any worsening or new concerning symptoms. Referrals: Rachael Fuller MD [MD CONSULTING PHYSICIAN] - Delonte Corral MD [Primary Care Provider] - Aviva Gilbert MD [ [facility] STAFF PHYSICIAN] - Discharge Data Discharge Date/Time-TO BE ENTERED AT DEPARTURE: 07/28/18 13:18 Medical Decision Making 8:55 --52-year-old male with multiple medical problems including history of CVA , coronary artery disease status post multiple stents, atrial fibrillation, frequent ED visits of recent, presents with dizziness, chest pressure intermittent since yesterday, no complaint of weakness or numbness but does have apparent mild right-sided weakness and paresthesias on exam. It is unclear to me if etiology is actual organic disease. Patient certainly has anxiety about his medical conditions. ECG reviewed and interpreted by me: Sinus rhythm 60 bpm, normal axis, no STEMI, no A. fib, nondiagnostic. Unclear onset of symptoms as patient was not aware of neuro deficits. Plan to CT head as well as CTA head and neck. Will check trop. 13:08 -- Labs reviewed. Hypomag noted. Patient given magnesium 1 g IV. Troponin and delta troponin neg. CT of the head and CTA of the head and neck interpreted by radiology: Negative Patient reassessed and symptoms resolved. He is feeling better. Usual and customary discharge instructions were provided. 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 I will also refer him to neurology. He was encouraged to return should have any worsening or new concerning symptoms. HPI General Mode of arrival: ambulatory . Date/Time Provider Initiated Documentation: 07/28/18 08:30 . Limitations to Documentation: no limitations . Information obtained by: patient . HPI Narrative: 52-year-old male with history of multiple medical problems including atrial fibrillation on Eliquis, right MCA CVA, coronary artery disease , status post 8 cardiac stents, [facility] cardiac catheterization report from October 2017 noted 2 vessel coronary artery disease of left circumflex and RCA and medical therapy was recommended, well-known to [facility] emergency department, here today with chief complaint of chest pressure. Patient notes that he started having chest discomfort this am. Symptoms are moderate. No modifiers. He has assoc lightheadedness and sensations of chills with diaphoresis intermittently since yesterday. This morning he has lightheadedness. Patient denies weakness or numbness. He has follow-up appointment with cardiology with plan for possible pacemaker/ defibrillator. He is on Eliquis and continues on a beta-david. Related Data Home Medications Medication Instructions Recorded Confirmed lansoprazole [Prevacid SoluTab] 30 mg PO DAILY 06/18/13 07/26/18 nitroglycerin [Nitrostat] 1 tab SUBLINGUAL Q5 MIN PRN X3 PRN 10/17/13 07/26/18 bupropion HCl 300 mg PO DAILY 10/16/15 07/26/18 isosorbide mononitrate 120 mg PO DAILY 10/16/15 07/26/18 aspirin 81 mg PO DAILY #90 tab-cap 04/22/17 07/26/18 multivitamin 1 ea PO DAILY 04/28/17 07/26/18 ascorbic acid (vitamin C) [Vitamin 1,000 mg PO DAILY 07/18/17 07/26/18 C] apixaban [Eliquis] 5 mg PO BID 30 Days #60 tab 02/24/18 07/26/18 Rosuvastatin Calcium 40 mg PO DAILY 05/09/18 07/26/18 sotalol [Betapace] 80 mg PO BID 05/09/18 07/26/18 biotin 1 tab PO DAILY 06/05/18 07/26/18 clopidogrel [Plavix] 75 mg PO DAILY 07/24/18 07/26/18 Previous Rx's Medication Instructions Recorded apixaban [Eliquis] 5 mg PO BID 30 Days #60 tab 02/24/18 Allergies Allergy/AdvReac Type Severity Reaction Status Date / Time atorvastatin calcium AdvReac Intermediate liver Unverified 08/03/18 06:33 [From Lipitor] problems niacin AdvReac Mild flushing Unverified 08/03/18 06:33 adhesive from monitor tabs Allergy Intermediate jones Uncoded 08/03/18 06:33 General Stated Complaint: Chest Pain MARQUIS: 2 Review of Systems Review of Systems All systems reviewed & are unremarkable except as noted in HPI and below Psychiatric Reports anxiety Exam Const General: cooperative and no acute distress HENDE Head: normocephalic and atraumatic Mouth: moist mucous membranes Eyes Conjunctivae: normal conjunctivae Sclera: normal sclerae EOM: EOM intact bilaterally Neck Neck: trachea midline and supple Resp Auscultation: clear to auscultation bilaterally, no rales, no rhonchi and no wheezes Cardio Jugular venous pressure: no JVD Rate: regular rate and not tachycardic Rhythm: regular rhythm Heart Sounds: no gallops, no murmurs and no rubs GI Palpation: soft, not firm, no guarding, no masses, not rigid and nontender Skin General skin exam: no rashes or lesions noted Neuro General: alert, awake, oriented x3 and tone normal Cognition: normal cognition Speech: speech normal Gait: normal gait Motor: strength abnormal (4/5 RUE and RLE) Sensory Exam: lower extremity right light-touch abnormal (tingling) and upper extremity right light-touch abnormal (tingling) Extrem General: no calf tenderness bilaterally and no edema Psych Appearance: grossly normal Mental Status: mental status grossly normal Speech and Movement: speech and movement normal Course Vital Signs Temperature 36.3 C L 07/28/18 08:33 Pulse 61 07/28/18 08:33 Respiratory Rate 18 07/28/18 08:33 Blood Pressure 124/84 07/28/18 08:33 Pulse Oximetry 97 07/28/18 08:33 Temperature 36.3 C L 07/28/18 08:33 Temperature Source Temporal Artery Scan 07/28/18 08:33 Pulse 61 07/28/18 08:33 Respiratory Rate 18 07/28/18 08:33 Respiratory Effort 07/28/18 08:38 Blood Pressure 124/84 07/28/18 08:33 Pulse Oximetry 97 07/28/18 08:33 Oxygen Delivery Method Room Air 07/28/18 08:33 Oxygen Flow Rate 0 07/28/18 08:33 Pain Level 6 07/28/18 08:33
[2018-07-28 09:22] LABS: ALT 22 U/L (12-78); AST 14 U/L (15-37); Albumin 3.2 g/dL (3.4-5.0); Alkaline Phosphatase 84 U/L (46-116); Anion Gap 11.2 mmol/L (3-11); BUN 15 mg/dL (7-18); Bilirubin, Total 0.2 mg/dL (0.2-1.0); CO2 24.8 mmol/L (21.0-32.0); CREATININE 1.04 mg/dL (0.70-1.30); Calcium 8.9 mg/dL (8.5-10.1); Chloride 103 mmol/L (98-107); Glucose 118 mg/dL (70-100); Magnesium 1.7 mg/dL (1.8-2.4); Sodium 139 mmol/L (136-145); Total Protein 6.9 g/dL (6.4-8.2)
[2018-07-28 09:24] VITALS: BP 124/85; PULSE 61; RESP 16; O2SAT 95
[2018-07-28 09:27] LABS: Troponin I < 0.02 ng/mL (0.00-0.06)
--- NOTE | 2018-07-28 09:36 | NUR.NOTE ---
Pt. to CT scan.
--- NOTE | 2018-07-28 09:50 | DI.CT_ITS ---
SYMPTOM/DIAGNOSIS: RT SIDED TINGLING AND WEAKNESS NONCONTRAST HEAD CT: Comparison is made with 05/09/18. No acute intracranial hemorrhage, infarct, midline shift or mass effect is identified. The ventricles and sulci are consistent with the patient's age. The ventricles are intact. The basilar cisterns are patent. There is mucosal thickening seen in the right maxillary sinus and the left sphenoid sinus. The remaining visualized paranasal sinuses are clear. The mastoid air cells are well pneumatized. The calvarium is intact. IMPRESSION: No acute intracranial process. The findings were discussed with Dr Vinh Barton of the ER on the date of the examination. CTA HEAD AND NECK: CT angiography was performed with multi slice acquisition and multi planar and 3D reconstruction. HEAD: Comparison is MRA is 04/28/18. The distal internal carotid arteries show mild calcific plaque but no occlusion or significant stenosis is noted. No aneurysmal dilatation or dissection is present. The anterior cerebral arteries are unremarkable. No evidence of occlusion, significant stenosis or aneurysm is seen. The middle cerebral arteries are unremarkable. No evidence of occlusion, significant stenosis or aneurysm are present. The posterior cerebral arteries show no evidence of occlusion, significant stenosis or aneurysm. The left posterior cerebral artery appears to arise from the posterior communicating artery predominantly which is a normal variant. The vertebral arteries and basilar artery are unremarkable without evidence of occlusion, significant stenosis or aneurysm. IMPRESSION: Normal CT angiography of the brain. NECK: Routine examination was performed. No priors for comparison. The visualized portions of the thoracic arch are unremarkable. There is mild calcific plaque seen in the distal common carotid arteries but no occlusion or significant stenosis is seen. No evidence of dissection is present. The external carotid arteries are unremarkable. No evidence of occlusion or significant stenosis is present. The extracranial portions of the internal carotid arteries are unremarkable. No evidence of occlusion, dissection or significant stenosis is present. The vertebral arteries are unremarkable. No evidence of dissection , occlusion or significant stenosis is present. The soft tissues are grossly unremarkable. Mild dependent changes are seen in the lung apices but no acute abnormality is identified. There is mild reversal of the normal cervical lordosis which may be positional. Mild degenerative changes are seen in the cervical spine. IMPRESSION: Normal CT angiography of the neck. The findings were discussed with the ER on the date of the examination.
[2018-07-28] MEDS: Omnipaque 350 MG/ML 100 ML BTL IJ (10:05)
--- NOTE | 2018-07-28 10:15 | DI.RAD_ITS ---
SYMPTOM/DIAGNOSIS: DIZZINESS PA AND LATERAL CHEST: Comparison is made with 07/24/18. The heart is normal in size. The lungs are clear. The mediastinal structures and pleura appear intact. CONCLUSION: Normal chest.
[2018-07-28] MEDS: MAGNESIUM SULFATE 1 GM/100 ML BAG IVPB (12:00)
[2018-07-28 12:02] VITALS: BP 122/80; PULSE 57; RESP 18; O2SAT 95
[2018-07-28 12:33] LABS: Troponin I < 0.02 ng/mL (0.00-0.06)
[2018-07-28 12:59] VITALS: BP 107/74; PULSE 61; RESP 16; O2SAT 96
== END 2018-07-28 13:18 | disposition home or self-care (01) ==
PROVIDERS: Emergency Provider Student in an Organized Health Care Education/Training Program; PCP Internal Medicine
DX: R07.9 Chest pain, unspecified (principal); R20.2 Paresthesia of skin; E83.42 Hypomagnesemia; I48.91 Unspecified atrial fibrillation; I25.10 Atherosclerotic heart disease of native coronary artery without angina pectoris; Z95.5 Presence of coronary angioplasty implant and graft
CPT/HCPCS: 36415; 70496; 70498; 80053; 93005; 96365; 99285; 70450; 71046; 83735; 84484; 85025; 93010; J3475; J3490

== ENCOUNTER 2018-08-03 06:23 | Emergency (ER) | payer BC, SELFPAY ==
[2018-08-03] VITALS (7 sets, daily range): BP systolic 120–139; BP diastolic 77–78; PULSE 50–60; RESP 11–15; TEMP 36.5; O2SAT 99–100
--- NOTE | 2018-08-03 06:49 | W.ED.GENAD ---
Discharge Plan Disposition Patient Disposition: HOME Condition: Good Discharge Details Chief Complaint: Dizzy/Sync Clinical Impression: Light-headed feeling Primary Care Provider: Delonte Corral ED Provider: José Swann [place] Meds and New Rx's Prescriptions: Continue aspirin 81 MG tablet,chewable 81 mg PO DAILY Qty: 90 RF: 4 ascorbic acid (vitamin C) [Vitamin C] 1,000 MG tablet 1,000 mg PO DAILY RF: 0 apixaban [Eliquis] 5 MG tablet 5 mg PO BID 30 Days Qty: 60 RF: 4 lansoprazole [Prevacid SoluTab] 30 MG tablet,disintegrat, delay rel 30 mg PO DAILY RF: 0 nitroglycerin [Nitrostat] 0.4 MG tablet, sublingual 1 tab Sublingual Q5 MIN PRN X3 PRNRF: 0 bupropion HCl 150 MG tablet extended release 12 hr 300 mg PO DAILY RF: 0 isosorbide mononitrate 120 MG tablet extended release 24 hr 120 mg PO DAILY RF: 0 multivitamin 1 EACH capsule 1 ea PO DAILY RF: 0 Rosuvastatin Calcium 40 MG tablet 40 mg PO DAILY RF: 0 sotalol [Betapace] 80 MG tablet 80 mg PO BID RF: 0 biotin 800 mcg Tablet 1 tab PO DAILY RF: 0 clopidogrel [Plavix] 75 mg Tablet 75 mg PO DAILY RF: 0 Discharge Instructions Additional Instructions: Your EKG is sinus rhythm with no change. Your vital signs are normal. Your exam is unremarkable. Continue your current medications. Follow-up with cardiology at [facility] next week as planned. Follow-up with primary care as needed. Return to ED for neurologic changes, persistent chest pain, fainting, increasing shortness of breath, other concerns. Referrals: [facility] [Provider Group] Delonte Corral MD [Primary Care Provider] - Medical Decision Making Patient presenting because he feels not right and lightheaded. Concerned that his blood pressure was low or that he was in A. fib. A brief episode of chest pain first thing in the morning nothing like previous angina and no recurrent symptoms. Denies any bleeding, black stool, fever. Denies any focal neurologic changes. He does have significant medical disease including atrial fibrillation, cardiac stents, stroke. He seems quite hypervigilant about his medical conditions but when asked if he thinks he worries or gets anxious about his medical problems he adamantly denies this and gets upset. He was just here on the second and had a full workup including head CT and CTA which were negative. His vital signs are normal. His EKG is unchanged. He does not have specific complaints other than not feeling right, lightheaded. Specifically denies vertigo. There is no gait instability. I do not feel that we need to initiate further workup in the emergency department at this time. He reports having an appointment with cardiology at [facility] next week. This is apparently with the EPS to discuss possible defibrillator placement. He is encouraged to keep this appointment. Follow-up with primary care as needed. Continue current medications. Return to ED for neurologic changes, syncope, persistent chest pain, increasing shortness of breath, other concerns. Medical Records Medical records reviewed: Yes I reviewed the patient's medical records. ECG Data Attestation: I personally reviewed and interpreted this ECG (s) as follows: Prior ECG tracings: available for review Interpretation: Sinus bradycardia rate 52. Incomplete right bundle branch block. No change from previous 07/26/2018. HPI General Mode of arrival: ambulatory. Date/Time Provider Initiated Documentation: 08/03/18 06:34. Limitations to Documentation: no limitations. Information obtained by: patient and old records reviewed. HPI Narrative: Patient presents to ED for evaluation of not feeling right. States that he had a slight episode of chest discomfort that was sharp and fleeting only a couple of minutes when he first got up in the morning. Since then he has not felt right. He had no further chest pain or pressure. He had no shortness of breath. He had no neurologic symptoms. He just feels tired, rundown, lightheaded. He denies vertigo. He denies syncope. He does have multiple medical problems including cardiac stents, left MCA stroke, atrial fibrillation. He is on aspirin, Plavix, Eliquis. He is on sotalol. He was concerned his blood pressure was low or that he was in A. fib and came in for evaluation. He has had 8 visits in the last month including one on the second of this month. Related Data Home Medications Medication Instructions Recorded Confirmed lansoprazole [Prevacid SoluTab] 30 mg PO DAILY 06/18/13 07/26/18 nitroglycerin [Nitrostat] 1 tab SUBLINGUAL Q5 MIN PRN X3 PRN 10/17/13 07/26/18 bupropion HCl 300 mg PO DAILY 10/16/15 07/26/18 isosorbide mononitrate 120 mg PO DAILY 10/16/15 07/26/18 aspirin 81 mg PO DAILY #90 tab-cap 04/22/17 07/26/18 multivitamin 1 ea PO DAILY 04/28/17 07/26/18 ascorbic acid (vitamin C) [Vitamin 1,000 mg PO DAILY 07/18/17 07/26/18 C] apixaban [Eliquis] 5 mg PO BID 30 Days #60 tab 02/24/18 07/26/18 Rosuvastatin Calcium 40 mg PO DAILY 05/09/18 07/26/18 sotalol [Betapace] 80 mg PO BID 05/09/18 07/26/18 biotin 1 tab PO DAILY 06/05/18 07/26/18 clopidogrel [Plavix] 75 mg PO DAILY 07/24/18 07/26/18 Previous Rx's Medication Instructions Recorded apixaban [Eliquis] 5 mg PO BID 30 Days #60 tab 02/24/18 Allergies Allergy/AdvReac Type Severity Reaction Status Date / Time atorvastatin calcium AdvReac Intermediate liver Unverified 08/03/18 06:33 [From Lipitor] problems niacin AdvReac Mild flushing Unverified 08/03/18 06:33 adhesive from monitor tabs Allergy Intermediate jones Uncoded 08/03/18 06:33 General Stated Complaint: Dizzy/Sync MARQUIS: 3 Review of Systems Constitutional Denies chills, Reports fatigue, Denies fever(s), Denies headache(s) and Reports malaise Eyes Denies other visual disturbances and Denies eye pain ENT Denies vertigo, Denies otalgia, Denies headache(s), Denies neck pain and Denies sore throat Cardiovascular Reports chest pain (sharp, short lived early in morning), Denies diaphoresis, Denies syncope, Denies rapid heart rate, Denies edema and Denies dyspnea Respiratory Denies cough and Denies dyspnea Gastrointestinal Denies abdominal pain, Denies melena, Denies hematochezia, Denies diarrhea, Denies nausea and Denies vomiting Genitourinary Denies hematuria Musculoskeletal Denies abnormal gait, Denies back pain, Denies neck pain, Denies numbness and Denies radiating pain into limb Integumentary/Breasts Denies rash Neurologic Denies abnormal speech, Denies abnormal gait, Denies confusion, Denies vertigo, Denies syncope, Denies headache(s), Denies focal weakness, Denies numbness and Denies paresthesias Psychiatric Denies confusion Endocrine Reports fatigue [facility] Medical History Atrial fibrillation (Chronic) Anemia Back pain, chronic Chest pain Coronary artery disease Depression with anxiety Dysesthesia Dyslipidemia Dyspepsia Esophagitis Gastritis Hemiplegia History of kidney cancer Hx of adenomatous polyp of colon Ischemic stroke Pulmonary nodules Sleep apnea Tobacco use Social History Smoking/Tobacco Use Status: Current every day alcohol intake: never substance use type: does not use Surgical History Hx of esophagogastroduodenoscopy (Chronic ~05/2018) Colonoscopy - MAC (08/03/17) EGD - MAC (08/03/17) Partial Nephrectomy Repair of inguinal hernia cardiac cath Exam Const General: cooperative, comfortable and no acute distress Orientation: alert and oriented x3 HENMT Head: normocephalic and atraumatic Mouth: moist mucous membranes Eyes Conjunctivae: conjunctivae normal Sclera: sclerae normal Pupils: PERRL EOM: EOM intact bilaterally Neck Neck: normal visual inspection, trachea midline and supple Resp Effort & Inspection: normal respiratory effort Auscultation: clear to auscultation bilaterally Cardio Rate: bradycardic Rhythm: regular rhythm Heart Sounds: S1 normal and S2 normal Pulses: radial pulses present GI Inspection: normal to inspection Palpation: soft, no guarding and nontender Skin General skin exam: no rashes or lesions noted Neuro General: alert, oriented x3, gait normal, no focal motor deficits and CN's II-XI intact bilaterally Sensory Exam: no sensory deficits noted Extrem General: normal to inspection, full ROM and no clubbing, cyanosis or edema Course Vital Signs Temperature 97.7 F 08/03/18 06:27 Pulse 55 L 08/03/18 06:27 Respiratory Rate 12 08/03/18 06:27 Blood Pressure 139/78 08/03/18 06:27 Pulse Oximetry 100 08/03/18 06:27 Temperature 97.7 F 08/03/18 06:27 Temperature Source Skin 08/03/18 06:27 Pulse 55 L 08/03/18 06:27 Respiratory Rate 12 08/03/18 06:27 Respiratory Effort Non-Labored 08/03/18 06:27 Blood Pressure 139/78 08/03/18 06:27 Blood Pressure Position Sitting 08/03/18 06:27 Pulse Oximetry 100 08/03/18 06:27 Oxygen Delivery Method Room Air 08/03/18 06:27 Oxygen Flow Rate 0 08/03/18 06:27
--- NOTE | 2018-08-03 07:07 | ED.GENADUL_ITS ---
Discharge Plan Disposition Patient Disposition: HOME Condition: Good Discharge Details Chief Complaint: Dizzy/Sync Clinical Impression: Light-headed feeling Primary Care Provider: Delonte Corral ED Provider: José Swann [place] Meds and New Rx's Prescriptions: Continue aspirin 81 MG tablet,chewable 81 mg PO DAILY Qty: 90 RF: 4 ascorbic acid (vitamin C) [Vitamin C] 1,000 MG tablet 1,000 mg PO DAILY RF: 0 apixaban [Eliquis] 5 MG tablet 5 mg PO BID 30 Days Qty: 60 RF: 4 lansoprazole [Prevacid SoluTab] 30 MG tablet,disintegrat, delay rel 30 mg PO DAILY RF: 0 nitroglycerin [Nitrostat] 0.4 MG tablet, sublingual 1 tab Sublingual Q5 MIN PRN X3 PRNRF: 0 bupropion HCl 150 MG tablet extended release 12 hr 300 mg PO DAILY RF: 0 isosorbide mononitrate 120 MG tablet extended release 24 hr 120 mg PO DAILY RF: 0 multivitamin 1 EACH capsule 1 ea PO DAILY RF: 0 Rosuvastatin Calcium 40 MG tablet 40 mg PO DAILY RF: 0 sotalol [Betapace] 80 MG tablet 80 mg PO BID RF: 0 biotin 800 mcg Tablet 1 tab PO DAILY RF: 0 clopidogrel [Plavix] 75 mg Tablet 75 mg PO DAILY RF: 0 Discharge Instructions Additional Instructions: Your EKG is sinus rhythm with no change. Your vital signs are normal. Your exam is unremarkable. Continue your current medications. Follow-up with cardiology at [facility] next week as planned. Follow-up with primary care as needed. Return to ED for neurologic changes, persistent chest pain, fainting, increasing shortness of breath, other concerns. Referrals: [facility] [Provider Group] Delonte Corral MD [Primary Care Provider] - Medical Decision Making Patient presenting because he feels not right and lightheaded. Concerned that his blood pressure was low or that he was in A. fib. A brief episode of chest pain first thing in the morning nothing like previous angina and no recurrent symptoms. Denies any bleeding, black stool, fever. Denies any focal neurologic changes. He does have significant medical disease including atrial fibrillation, cardiac stents, stroke. He seems quite hypervigilant about his medical conditions but when asked if he thinks he worries or gets anxious about his medical problems he adamantly denies this and gets upset. He was just here on the second and had a full workup including head CT and CTA which were negative. His vital signs are normal. His EKG is unchanged. He does not have specific complaints other than not feeling right, lightheaded. Specifically denies vertigo. There is no gait instability. I do not feel that we need to initiate further workup in the emergency department at this time. He reports having an appointment with cardiology at [facility] next week. This is apparently with the EPS to discuss possible defibrillator placement. He is encouraged to keep this appointment. Follow-up with primary care as needed. Continue current medications. Return to ED for neurologic changes, syncope, persistent chest pain, increasing shortness of breath, other concerns. Medical Records Medical records reviewed: Yes I reviewed the patient's medical records. ECG Data Attestation: I personally reviewed and interpreted this ECG (s) as follows: Prior ECG tracings: available for review Interpretation: Sinus bradycardia rate 52. Incomplete right bundle branch block. No change from previous 07/26/2018. HPI General Mode of arrival: ambulatory . Date/Time Provider Initiated Documentation: 08/03/18 06:34 . Limitations to Documentation: no limitations . Information obtained by: patient and old records reviewed . HPI Narrative: Patient presents to ED for evaluation of not feeling right. States that he had a slight episode of chest discomfort that was sharp and fleeting only a couple of minutes when he first got up in the morning. Since then he has not felt right. He had no further chest pain or pressure. He had no shortness of breath. He had no neurologic symptoms. He just feels tired, rundown, lightheaded. He denies vertigo. He denies syncope. He does have multiple medical problems including cardiac stents, left MCA stroke, atrial fibrillation. He is on aspirin, Plavix, Eliquis. He is on sotalol. He was concerned his blood pressure was low or that he was in A. fib and came in for evaluation. He has had 8 visits in the last month including one on the second of this month. Related Data Home Medications Medication Instructions Recorded Confirmed lansoprazole [Prevacid SoluTab] 30 mg PO DAILY 06/18/13 07/26/18 nitroglycerin [Nitrostat] 1 tab SUBLINGUAL Q5 MIN PRN X3 PRN 10/17/13 07/26/18 bupropion HCl 300 mg PO DAILY 10/16/15 07/26/18 isosorbide mononitrate 120 mg PO DAILY 10/16/15 07/26/18 aspirin 81 mg PO DAILY #90 tab-cap 04/22/17 07/26/18 multivitamin 1 ea PO DAILY 04/28/17 07/26/18 ascorbic acid (vitamin C) [Vitamin 1,000 mg PO DAILY 07/18/17 07/26/18 C] apixaban [Eliquis] 5 mg PO BID 30 Days #60 tab 02/24/18 07/26/18 Rosuvastatin Calcium 40 mg PO DAILY 05/09/18 07/26/18 sotalol [Betapace] 80 mg PO BID 05/09/18 07/26/18 biotin 1 tab PO DAILY 06/05/18 07/26/18 clopidogrel [Plavix] 75 mg PO DAILY 07/24/18 07/26/18 Previous Rx's Medication Instructions Recorded apixaban [Eliquis] 5 mg PO BID 30 Days #60 tab 02/24/18 Allergies Allergy/AdvReac Type Severity Reaction Status Date / Time atorvastatin calcium AdvReac Intermediate liver Unverified 08/03/18 06:33 [From Lipitor] problems niacin AdvReac Mild flushing Unverified 08/03/18 06:33 adhesive from monitor tabs Allergy Intermediate jones Uncoded 08/03/18 06:33 General Stated Complaint: Dizzy/Sync MARQUIS: 3 Review of Systems Constitutional Denies chills, Reports fatigue, Denies fever(s), Denies headache(s) and Reports malaise Eyes Denies other visual disturbances and Denies eye pain ENT Denies vertigo, Denies otalgia, Denies headache(s), Denies neck pain and Denies sore throat Cardiovascular Reports chest pain (sharp, short lived early in morning), Denies diaphoresis, Denies syncope, Denies rapid heart rate, Denies edema and Denies dyspnea Respiratory Denies cough and Denies dyspnea Gastrointestinal Denies abdominal pain, Denies melena, Denies hematochezia, Denies diarrhea, Denies nausea and Denies vomiting Genitourinary Denies hematuria Musculoskeletal Denies abnormal gait, Denies back pain, Denies neck pain, Denies numbness and Denies radiating pain into limb Integumentary/Breasts Denies rash Neurologic Denies abnormal speech, Denies abnormal gait, Denies confusion, Denies vertigo, Denies syncope, Denies headache(s), Denies focal weakness, Denies numbness and Denies paresthesias Psychiatric Denies confusion Endocrine Reports fatigue [facility] Medical History Atrial fibrillation (Chronic) Anemia Back pain, chronic Chest pain Coronary artery disease Depression with anxiety Dysesthesia Dyslipidemia Dyspepsia Esophagitis Gastritis Hemiplegia History of kidney cancer Hx of adenomatous polyp of colon Ischemic stroke Pulmonary nodules Sleep apnea Tobacco use Social History Smoking/Tobacco Use Status: Current every day alcohol intake: never substance use type: does not use Surgical History Hx of esophagogastroduodenoscopy (Chronic ~05/2018) Colonoscopy - MAC (08/03/17) EGD - MAC (08/03/17) Partial Nephrectomy Repair of inguinal hernia cardiac cath Exam Const General: cooperative, comfortable and no acute distress Orientation: alert and oriented x3 HENMT Head: normocephalic and atraumatic Mouth: moist mucous membranes Eyes Conjunctivae: conjunctivae normal Sclera: sclerae normal Pupils: PERRL EOM: EOM intact bilaterally Neck Neck: normal visual inspection, trachea midline and supple Resp Effort & Inspection: normal respiratory effort Auscultation: clear to auscultation bilaterally Cardio Rate: bradycardic Rhythm: regular rhythm Heart Sounds: S1 normal and S2 normal Pulses: radial pulses present GI Inspection: normal to inspection Palpation: soft, no guarding and nontender Skin General skin exam: no rashes or lesions noted Neuro General: alert, oriented x3, gait normal, no focal motor deficits and CN's II- XI intact bilaterally Sensory Exam: no sensory deficits noted Extrem General: normal to inspection, full ROM and no clubbing, cyanosis or edema Course Vital Signs Temperature 97.7 F 08/03/18 06:27 Pulse 55 L 08/03/18 06:27 Respiratory Rate 12 08/03/18 06:27 Blood Pressure 139/78 08/03/18 06:27 Pulse Oximetry 100 08/03/18 06:27 Temperature 97.7 F 08/03/18 06:27 Temperature Source Skin 08/03/18 06:27 Pulse 55 L 08/03/18 06:27 Respiratory Rate 12 08/03/18 06:27 Respiratory Effort Non-Labored 08/03/18 06:27 Blood Pressure 139/78 08/03/18 06:27 Blood Pressure Position Sitting 08/03/18 06:27 Pulse Oximetry 100 08/03/18 06:27 Oxygen Delivery Method Room Air 08/03/18 06:27 Oxygen Flow Rate 0 08/03/18 06:27
== END 2018-08-03 06:56 | disposition home or self-care (01) ==
LOC: ER 07:01
PROVIDERS: Emergency Provider Emergency Medicine; PCP Internal Medicine
DX: R42 Dizziness and giddiness (principal); R00.1 Bradycardia, unspecified; I45.10 Unspecified right bundle-branch block
CPT/HCPCS: 93005; 99283; 93010

== ENCOUNTER 2018-09-05 06:15 | Emergency (ER) | payer BC, SELFPAY ==
[2018-09-05] VITALS (38 sets, daily range): BP systolic 107–132; BP diastolic 69–86; PULSE 49–66; RESP 10–23; TEMP 36.3; O2SAT 94–98
--- NOTE | 2018-09-05 06:38 | DI.RAD_ITS ---
SYMPTOM/DIAGNOSIS: CHEST PAIN PORTABLE CHEST: Comparison is made with 28 Jul 2018. The lungs are not well inflated. The heart size is within normal limits. There is a question of some increased densities at the left lung base which could represent atelectasis, however, infiltrate cannot be excluded. IMPRESSION: Limited exam due to poor pulmonary inflation. Recommend follow up PA and Lateral.
[2018-09-05] MEDS: Aspirin 81 MG CHEW 324 MG CH (06:45)
[2018-09-05] MEDS: Normal Saline Flush 10 ML SYR IVP (06:50)
[2018-09-05] MEDS: FAMOTIDINE 20 MG/50 ML BAG 200 MG IVPB (06:50)
[2018-09-05 06:52] LABS: Abs Immature Grans 0.02 k/cumm (0.0-0.09); Absolute Basophil Count 0.05 k/cumm (0.0-0.2); Absolute Eosinophil Count 0.22 k/cumm (0.0-0.7); Absolute Lymphocyte Count 2.21 k/cumm (1.2-3.4); Absolute Neutrophil Count 5.04 k/cumm (1.2-6.7); Basophils % 0.6; Eosinophils % 2.7; HCT 39.6 % (40.0-50.0); HGB 13.5 g/dL (13.5-17.5); Immature Grans % 0.2; Lymphocytes % 27.5; Mean Corp. HGB Concentration 34.1 g/dL (32.0-36.0); Mean Corpuscular Hemoglobin 31.3 pg (27.0-33.0); Mean Corpuscular Volume 91.7 fL (80-95); Mean Platelet Volume 9.7 fL (8.0-11.0); Monocytes % 6.2; Neutrophils % 62.8; Platelet Count 249 x1000/uL (130-400); RBC 4.32 m/cumm (4.50-6.00); RBC Distribution Width 13.9 % (11.8-14.1); White Blood Cell Count 8.04 k/cumm (4.4-10.8)
--- NOTE | 2018-09-05 06:53 | ED.GENADUL_ITS ---
Discharge Plan Disposition Patient Disposition: HOME Condition: Improving Discharge Details Chief Complaint: Chest Pain Clinical Impression: Hypomagnesemia, Chest pain Primary Care Provider: Delonte Corral ED Provider: Mik Christy Home Meds and New Rx's Prescriptions: Continue ascorbic acid (vitamin C) [Vitamin C] 1,000 MG tablet 1,000 mg PO DAILY RF: 0 apixaban [Eliquis] 5 MG tablet 5 mg PO BID 30 Days Qty: 60 RF: 4 lansoprazole [Prevacid SoluTab] 30 MG tablet,disintegrat, delay rel 30 mg PO DAILY RF: 0 nitroglycerin [Nitrostat] 0.4 MG tablet, sublingual 1 tab Sublingual Q5 MIN PRN X3 PRNRF: 0 bupropion HCl 150 MG tablet extended release 12 hr 300 mg PO DAILY RF: 0 isosorbide mononitrate 120 MG tablet extended release 24 hr 120 mg PO DAILY RF: 0 multivitamin 1 EACH capsule 1 ea PO DAILY RF: 0 Rosuvastatin Calcium 40 MG tablet 40 mg PO DAILY RF: 0 sotalol [Betapace] 80 MG tablet 80 mg PO BID RF: 0 biotin 800 mcg Tablet 1 tab PO DAILY RF: 0 clopidogrel [Plavix] 75 mg Tablet 75 mg PO DAILY RF: 0 Discharge Instructions Instructions: Chest Pain (ED), Hypomagnesemia (ED) Additional Instructions: Follow-up with Dr. Corral in clinic. [facility] Return for any acute concerns. Please continue all regular medication Medical Decision Making <José Swann MD - Last Filed: 09/05/18 07:39> Patient presenting with complaints of nausea and a burning pressure in his chest. Reporting some radiation into the right arm this morning. Has had symptoms all night. Has multiple visits to ED for same but also has known disease. EKG unchanged from previous. IV in place. Will give aspirin until labs have returned but will treat with Phenergan and Pepcid as I suspect probably more GI related. Labs and chest x-ray pending. Patient's troponin is negative. Labs are unremarkable other than a magnesium of 1.5. We will need to replace given his history of A. fib. Chest x-ray to my review is unchanged and unremarkable, preliminary radiology read suggest atelectasis and possible developing left lower lobe consolidation. Patient is a smoker. He denies any fever, cough, shortness of breath. Patient feels much better after Phenergan and Pepcid. No longer has any symptoms. We will plan to replace his magnesium and repeat a troponin and discharge if remains negative. Patient will be signed over to Dr. Christy. Medical Records Medical records reviewed: Yes I reviewed the patient's medical records. Imaging Data Radiologic Study: Imaging: X-Ray Radiologist's impression: Patient Name: LACIE WANG AUnit #: [id number]: ER Ordering Provider: : [facility] Primary Care Provider: Delonte Corral M.D.Date of Exam: 09/05/18ex: M : 1965Age: 52 Exam(s) EXAM: XR Chest, 1 View EXAM DATE/TIME: 09/05/2018 6:41 AM CLINICAL HISTORY: 52 years old, male; Pain; Chest pain TECHNIQUE: XR of the chest, 1 view. COMPARISON: CR XR CHEST 2V PA LATERAL 07/28/2018 10:04 AM FINDINGS: Mildly expanded with bibasilar subsegmental atelectasis. Mild left basilar opacity cannot be completely excluded. Peribronchial thickening suspected. No pleural effusion, pneumothorax or concerning osseous abnormality Mild enlargement of the cardiomediastinal silhouette may be related to mild hypoexpansion IMPRESSION: Bibasilar subsegmental atelectasis and question of minimal left lower lobe consolidation. Developing left lower lobe pneumonia cannot be completely excluded Question mild bronchitis Dictated and Authenticated by: Fede Stephens MD. Ordering:VANDANA CESAR MD Lab Data Lab results reviewed: Yes I reviewed the patient's lab results. ECG Data Attestation: I personally reviewed and interpreted this ECG (s) as follows: Prior ECG tracings: available for review Interpretation: Sinus bradycardia at 55 with an incomplete right bundle branch block. No acute ST changes. No change from previous last month. <Mik Christy MD - Last Filed: 09/05/18 11:14> Received from Dr. Swann. Please see his note regarding details of patient's presentation, exam, plan of care. Patient observed on monitor without event, repeat troponin obtained and negative. States that he feels better. Stable for discharge at this time Follow-up with primary care physician; continue all prescribed meds. Lab Data Lab results reviewed: Yes I reviewed the patient's lab results. Laboratory Results - last 24 hr 09/05/18 09/05/18 09/05/18 06:32 06:32 10:41 WBC 8.04 RBC 4.32 L Hgb 13.5 Hct 39.6 L MCV 91.7 MCH 31.3 MCHC 34.1 RDW 13.9 Plt Count 249 MPV 9.7 Immature Gran % 0.2 Neutrophils % 62.8 Lymphocytes % 27.5 Monocytes % 6.2 Eosinophils % 2.7 Basophils % 0.6 Absolute Neutrophils 5.04 Absolute Lymphocytes 2.21 Absolute Monocytes 0.50 Absolute Eosinophils 0.22 Absolute Basophils 0.05 Sodium 139 Potassium 4.0 Chloride 103 Carbon Dioxide 23.7 Anion Gap 12.3 H BUN 15 Creatinine 1.12 Estimated GFR/1.73 m2 >= 60.00 Glucose 134 H Calcium 8.4 L Magnesium 1.5 L Total Bilirubin 0.2 AST 14 L ALT 21 Alkaline Phosphatase 74 Troponin I < 0.02 < 0.02 Total Protein 6.8 Albumin 3.3 L HPI <José Swann MD - Last Filed: 09/05/18 07:39> General Mode of arrival: ambulatory . Date/Time Provider Initiated Documentation: 09/05/18 06:27 . Limitations to Documentation: no limitations . Information obtained by: patient and old records reviewed . HPI Narrative: Patient presents to ED with complaints of burning chest pain and pressure associated with nausea. Symptoms started last evening around 6 PM. He thinks it bothered him all night because every time he woke up he had discomfort. This morning it seemed to be worse when he went to get coffee. Nausea seems to get worse more than the discomfort in his chest. Some radiation of the discomfort into the right arm. No diaphoresis. Minimal shortness of breath. He has not been ill. He has no neurologic symptoms. He has had multiple visits to the ED in the past for either neurologic complaints or chest pain complaints. However, he does have known disease including previous strokes, heart attacks with a stent placement a few months ago. Related Data Home Medications Medication Instructions Recorded Confirmed lansoprazole [Prevacid SoluTab] 30 mg PO DAILY 06/18/13 09/05/18 nitroglycerin [Nitrostat] 1 tab SUBLINGUAL Q5 MIN PRN X3 PRN 10/17/13 09/05/18 bupropion HCl 300 mg PO DAILY 10/16/15 09/05/18 isosorbide mononitrate 120 mg PO DAILY 10/16/15 09/05/18 multivitamin 1 ea PO DAILY 04/28/17 09/05/18 ascorbic acid (vitamin C) [Vitamin 1,000 mg PO DAILY 07/18/17 09/05/18 C] apixaban [Eliquis] 5 mg PO BID 30 Days #60 tab 02/24/18 09/05/18 Rosuvastatin Calcium 40 mg PO DAILY 05/09/18 09/05/18 sotalol [Betapace] 80 mg PO BID 05/09/18 09/05/18 biotin 1 tab PO DAILY 06/05/18 09/05/18 clopidogrel [Plavix] 75 mg PO DAILY 07/24/18 09/05/18 Previous Rx's Medication Instructions Recorded apixaban [Eliquis] 5 mg PO BID 30 Days #60 tab 02/24/18 Allergies Allergy/AdvReac Type Severity Reaction Status Date / Time atorvastatin calcium AdvReac Intermediate liver Unverified 09/05/18 06:22 [From Lipitor] problems niacin AdvReac Mild flushing Unverified 09/05/18 06:22 adhesive from monitor tabs Allergy Intermediate jones Uncoded 09/05/18 06:22 General Stated Complaint: Chest Pain MARQUIS: 3 Review of Systems <José Swann MD - Last Filed: 09/05/18 07:39> Constitutional Denies chills, Denies fever(s), Denies headache(s), Denies malaise and Denies weakness Eyes Denies change in vision, Denies eye discharge, Denies irritation and Denies eye pain ENT Denies headache(s) and Denies neck pain Cardiovascular Reports chest pain, Denies pedal edema, Denies edema, Denies leg edema, Denies lightheadedness, Denies palpitations and Reports dyspnea (minimal) Respiratory Denies cough, Denies pain on inspiration and Reports dyspnea (minimal) Gastrointestinal Denies abdominal pain, Denies diarrhea, Reports nausea and Denies vomiting Genitourinary Denies hematuria, Denies difficulty urinating, Denies dysuria, Denies urinary frequency and Denies urinary urgency Musculoskeletal Denies back pain, Denies myalgias, Denies arthralgias, Denies joint swelling, Denies neck pain and Denies numbness Integumentary/Breasts Denies erythema and Denies rash Neurologic Denies confusion, Denies headache(s), Denies numbness and Denies weakness Psychiatric Denies confusion Endocrine Denies palpitations Exam <José Swann MD - Last Filed: 09/05/18 07:39> Const General: cooperative, comfortable and no acute distress Orientation: alert and oriented x3 HENMT Head: normocephalic and atraumatic Mouth: moist mucous membranes Eyes Conjunctivae: conjunctivae normal Pupils: PERRL EOM: EOM intact bilaterally Neck Neck: full ROM, no lymphadenopathy, trachea midline and supple Resp Effort & Inspection: normal respiratory effort Auscultation: clear to auscultation bilaterally Cardio Rate: regular rate Rhythm: regular rhythm Heart Sounds: S1 normal and S2 normal Pulses: normal peripheral pulses GI Inspection: non-distended Palpation: soft, not firm, no guarding and nontender Skin General skin exam: no erythema Rashes: no rashes Trauma: no lacerations or abrasions Other: warm and dry Neuro General: alert, oriented x3, no focal motor deficits and CN's II-XI intact bilaterally Cognition: normal cognition Speech: speech normal Sensory Exam: no sensory deficits noted Extrem General: normal to inspection, full ROM and no clubbing, cyanosis or edema Psych Appearance: grossly normal Mental Status: mental status grossly normal Affect: normal affect Attitude: cooperative Course <José Swann MD - Last Filed: 09/05/18 07:39> Vital Signs Temperature 97.3 F L 09/05/18 06:22 Pulse 58 L 09/05/18 06:22 Respiratory Rate 15 09/05/18 06:22 Blood Pressure 132/86 09/05/18 06:22 Pulse Oximetry 97 09/05/18 06:22 Temperature 97.3 F L 09/05/18 06:22 Temperature Source Temporal Artery Scan 09/05/18 06:22 Pulse 58 L 09/05/18 06:22 Respiratory Rate 11 L 09/05/18 06:26 Respiratory Effort 09/05/18 06:26 Respiratory Depth Normal 09/05/18 06:26 Blood Pressure 132/86 09/05/18 06:22 Blood Pressure Position Sitting 09/05/18 06:22 Pulse Oximetry 97 12/11/18 06:22 Oxygen Delivery Method Room Air 09/05/18 06:22 Oxygen Flow Rate 0 09/05/18 06:22 Pain Level 5 09/05/18 06:22 Sign Out <José Swann MD - Last Filed: 09/05/18 07:39> Sign Out Data: Sign Out Comment: Pending second troponin after IV magnesium completed Last updated by José Swann MD at 09/05/18 07:53
[2018-09-05 07:06] LABS: ALT 21 U/L (12-78); AST 14 U/L (15-37); Albumin 3.3 g/dL (3.4-5.0); Alkaline Phosphatase 74 U/L (46-116); Anion Gap 12.3 mmol/L (3-11); BUN 15 mg/dL (7-18); Bilirubin, Total 0.2 mg/dL (0.2-1.0); CO2 23.7 mmol/L (21.0-32.0); CREATININE 1.12 mg/dL (0.70-1.30); Calcium 8.4 mg/dL (8.5-10.1); Chloride 103 mmol/L (98-107); Glucose 134 mg/dL (70-100); Magnesium 1.5 mg/dL (1.8-2.4); Sodium 139 mmol/L (136-145); Total Protein 6.8 g/dL (6.4-8.2)
[2018-09-05 07:08] LABS: Troponin I < 0.02 ng/mL (0.00-0.06)
--- NOTE | 2018-09-05 07:31 | DI.VRAD_ITS ---
EXAM: XR Chest, 1 View EXAM DATE/TIME: 09/05/2018 6:41 AM CLINICAL HISTORY: 52 years old, male; Pain; Chest pain TECHNIQUE: XR of the chest, 1 view. COMPARISON: CR XR CHEST 2V PA LATERAL 07/28/2018 10:04 AM FINDINGS: Mildly expanded with bibasilar subsegmental atelectasis. Mild left basilar opacity cannot be completely excluded. Peribronchial thickening suspected. No pleural effusion, pneumothorax or concerning osseous abnormality Mild enlargement of the cardiomediastinal silhouette may be related to mild hypoexpansion IMPRESSION: Bibasilar subsegmental atelectasis and question of minimal left lower lobe consolidation. Developing left lower lobe pneumonia cannot be completely excluded Question mild bronchitis Dictated and Authenticated by: Fede Stephens MD. Ordering:VANDANA CESAR MD
[2018-09-05] MEDS: MAGNESIUM SULFATE 2 GM/50 ML BAG IVPB (07:38)
[2018-09-05 11:03] LABS: Troponin I < 0.02 ng/mL (0.00-0.06)
== END 2018-09-05 11:25 | disposition home or self-care (01) ==
PROVIDERS: Emergency Medicine; Emergency Provider Emergency Medicine; PCP Internal Medicine
DX: E83.42 Hypomagnesemia (principal); R07.9 Chest pain, unspecified; R11.0 Nausea; I25.10 Atherosclerotic heart disease of native coronary artery without angina pectoris; Z95.5 Presence of coronary angioplasty implant and graft
CPT/HCPCS: 36415; 80053; 93005; 96365; 96366; 96367; 96368; 99285; 71045; 83735; 84484; 85025; 93010

== ENCOUNTER 2018-09-07 05:50 | Emergency (ER) | payer BC, SELFPAY ==
--- NOTE | 2018-09-07 06:48 | W.ED.GENAD ---
Discharge Plan Disposition Patient Disposition: OTHER Discharge Details Clinical Impression: Chest pain Primary Care Provider: Delonte Corral ED Provider: Bladimir Collazo Home Meds and New Rx's Prescriptions: No Action ascorbic acid (vitamin C) [Vitamin C] 1,000 MG tablet 1,000 mg PO DAILY RF: 0 apixaban [Eliquis] 5 MG tablet 5 mg PO BID 30 Days Qty: 60 RF: 4 lansoprazole [Prevacid SoluTab] 30 MG tablet,disintegrat, delay rel 30 mg PO DAILY RF: 0 nitroglycerin [Nitrostat] 0.4 MG tablet, sublingual 1 tab Sublingual Q5 MIN PRN X3 PRNRF: 0 bupropion HCl 150 MG tablet extended release 12 hr 300 mg PO DAILY RF: 0 isosorbide mononitrate 120 MG tablet extended release 24 hr 120 mg PO DAILY RF: 0 multivitamin 1 EACH capsule 1 ea PO DAILY RF: 0 Rosuvastatin Calcium 40 MG tablet 40 mg PO DAILY RF: 0 sotalol [Betapace] 80 MG tablet 80 mg PO BID RF: 0 biotin 800 mcg Tablet 1 tab PO DAILY RF: 0 clopidogrel [Plavix] 75 mg Tablet 75 mg PO DAILY RF: 0 Discharge Data Discharge Date/Time-TO BE ENTERED AT DEPARTURE: 09/07/18 05:55 HPI General Mode of arrival: ambulatory. Limitations to Documentation: no limitations. HPI Narrative: This patient came in during [facility] downtime. I had no access to records. He came in complaining of chest pain, was speaking in full setnences. When asked about prior hospitalizations given I didn't have access to the records the patient became very agitated and started screaming and hostile. He stated listen you little (expletive) and threatened to joleen me. I did not have time to ask any detailed questions and did not perform any medical screening exam as the patient stormed out of the ED prior to this being done. HE eloped from the ED. Related Data Home Medications Medication Instructions Recorded Confirmed lansoprazole [Prevacid SoluTab] 30 mg PO DAILY 06/18/13 09/05/18 nitroglycerin [Nitrostat] 1 tab SUBLINGUAL Q5 MIN PRN X3 PRN 10/17/13 09/05/18 bupropion HCl 300 mg PO DAILY 10/16/15 09/05/18 isosorbide mononitrate 120 mg PO DAILY 10/16/15 09/05/18 multivitamin 1 ea PO DAILY 04/28/17 09/05/18 ascorbic acid (vitamin C) [Vitamin 1,000 mg PO DAILY 07/18/17 09/05/18 C] apixaban [Eliquis] 5 mg PO BID 30 Days #60 tab 02/24/18 09/05/18 Rosuvastatin Calcium 40 mg PO DAILY 05/09/18 09/05/18 sotalol [Betapace] 80 mg PO BID 05/09/18 09/05/18 biotin 1 tab PO DAILY 06/05/18 09/05/18 clopidogrel [Plavix] 75 mg PO DAILY 07/24/18 09/05/18 Previous Rx's Medication Instructions Recorded apixaban [Eliquis] 5 mg PO BID 30 Days #60 tab 02/24/18 Allergies Allergy/AdvReac Type Severity Reaction Status Date / Time atorvastatin calcium AdvReac Intermediate liver Unverified 09/05/18 06:22 [From Lipitor] problems niacin AdvReac Mild flushing Unverified 09/05/18 06:22 adhesive from monitor tabs Allergy Intermediate jones Uncoded 09/05/18 06:22 General MARQUIS: 3 PFSH Social History Smoking/Tobacco Use Status: Current every day alcohol intake: never substance use type: does not use
== END 2018-09-07 05:55 | disposition other institution (70) ==
PROVIDERS: Emergency Provider Emergency Medicine; PCP Internal Medicine
DX: R07.9 Chest pain, unspecified (principal); Z53.29 Procedure and treatment not carried out because of patient's decision for other reasons; F17.210 Nicotine dependence, cigarettes, uncomplicated

== ENCOUNTER 2018-09-07 09:02 | Inpatient (IN) | payer BC, SELFPAY ==
[2018-09-07] VITALS (47 sets, daily range): BP systolic 96–128; BP diastolic 55–101; PULSE 49–131; RESP 12–35; TEMP 36.5–36.6; O2SAT 92–98
[2018-09-07 09:41] LABS: Abs Immature Grans 0.03 k/cumm (0.0-0.09); Absolute Basophil Count 0.03 k/cumm (0.0-0.2); Absolute Eosinophil Count 0.21 k/cumm (0.0-0.7); Absolute Monocyte Count 0.94 k/cumm (0.11-0.7); Basophils % 0.4; Eosinophils % 2.5; HCT 38.5 % (40.0-50.0); HGB 13.2 g/dL (13.5-17.5); Immature Grans % 0.4; Lymphocytes % 28.2; Mean Corp. HGB Concentration 34.3 g/dL (32.0-36.0); Mean Corpuscular Hemoglobin 31.4 pg (27.0-33.0); Mean Corpuscular Volume 91.7 fL (80-95); Mean Platelet Volume 9.1 fL (8.0-11.0); Neutrophils % 57.5; Platelet Count 253 x1000/uL (130-400); RBC Distribution Width 13.9 % (11.8-14.1); White Blood Cell Count 8.51 k/cumm (4.4-10.8)
[2018-09-07] MEDS: Normal Saline 1,000 ML 1000 ML IV (09:41)
[2018-09-07 09:56] LABS: PTT Activated 29.9 sec (21.0-31.4); Prothrombin Time 9.9 sec (9.3-10.8)
[2018-09-07 10:01] LABS: ALT 24 U/L (12-78); AST 17 U/L (15-37); Albumin 3.6 g/dL (3.4-5.0); Alkaline Phosphatase 88 U/L (46-116); Anion Gap 9.8 mmol/L (3-11); BUN 12 mg/dL (7-18); Bilirubin, Total 0.2 mg/dL (0.2-1.0); CO2 27.2 mmol/L (21.0-32.0); CREATININE 0.96 mg/dL (0.70-1.30); Calcium 9.5 mg/dL (8.5-10.1); Chloride 102 mmol/L (98-107); Glucose 87 mg/dL (70-100); Magnesium 1.9 mg/dL (1.8-2.4); Potassium 4.6 mmol/L (3.5-5.1); Sodium 139 mmol/L (136-145); TSH 0.94 uIU/mL (0.358-3.74); Total Protein 7.9 g/dL (6.4-8.2)
--- NOTE | 2018-09-07 10:07 | NUR.NOTE ---
Nursing Note: Pt awake and alert, c/o chest pain with sob on exercetion. Pt with noted right side weakness, unable to lift right leg off stretcher. Pt does have a ast hx of stroke and has occasional right side weakness.Hand grasps weak on right side. HR 110's in a-fib, cardizem given as ordered. Will continue to monitor.
[2018-09-07 10:10] LABS: D-Dimer 345 ng/mlFEU (<500)
--- NOTE | 2018-09-07 10:10 | ED.GENADUL_ITS ---
Discharge Plan Disposition Patient Disposition: [facility] INPATIENT Discharge Details Chief Complaint: Chest Pain Clinical Impression: Atrial fibrillation, Atrial fibrillation with RVR, Transient right leg weakness Reason For Visit: AFIB WITH RVR Admit Date/Time: 09/07/18 13:52 Admit Provider: Colin Colunga Attending Provider: Colin Colunga Primary Care Provider: Delonte Corral ED Provider: Fareed Guido Discharge Data Discharge Date/Time-TO BE ENTERED AT DEPARTURE: 09/07/18 15:02 Medical Decision Making EKG 9: 14 Rate 107, QTc 432, QRS 92, atrial fibrillation, no significant ST elevations or depressions, except for nonspecific T wave repolarization elevation in V2 and V3. No tombstone is evidenced, no evidence of reciprocal depression, EKG findings are inconsistent with STEMI. Abbreviated MDM: This is a 52-year-old male with a past medical history of 9 cardiac stents the most recent being slightly over a month ago, ischemic cerebrovascular accident now on Plavix, A. fib on Eliquis and sotalol, who presents with chest pain. Chest pain started roughly 36 hours ago, hardly improved with nitroglycerin yesterday. Second nitro showed no response. Here in the ED the patient does demonstrate A. fib with a intermittent rapid ventricular response. Initial treatment was with 15 of IV Cardizem, however the patient continued to have intermittent rapid ventricular responses with this and he was started on a Cardizem drip. Troponin is negative, d-dimer is negative, EKG shows no ST elevations or signs of a STEMI. Initial physical exam demonstrated unexpected notable weakness for his right lower extremity, including dorsiflexion plantarflexion of his right foot. Reflexes were intact. Her concern for a stroke with his A. fib we did get an MRI since CT was not available, and the patient refused transfer for different imaging. MRI imaging per radiology demonstrates no evidence of stroke for the MRI angios of the head and neck. Very atypically and unexpectedly as soon as the patient returned from his MRI within 5 minutes he had complete resolution of his symptoms of weakness for his lower extremity, and on my repeat neurologic exam demonstrated normal sensation, normal strength of all components of his right lower extremity with 5 out of 5 strength in every direction at both the hip, knee, and foot. With a negative MRI, and a resolution of his symptoms I do not feel that he is having a significant CVA at this point, however there may be a stuttering component with his A. fib. With no neurologic deficits noted now and a normal MRI and do not feel that he would qualify for any potential thrombolytic therapy. Additionally he was not a candidate for thrombolytic therapy on his initial assessment secondary to lack of starting time as he states he woke up with a limp, and with his poor historical components this may have been a reflection of his symptoms of weakness, the patient did not notice any of the symptoms prior to my clinical exam. The exact onset timing and etiology is uncertain, it was his blood thinner use he would have a notable contraindication for thrombolytic therapy. I discussed the case with the lump machine operator Dr. Loo at [facility], who recommended rate control here, and expectant rhythm cardioversion with medication. He recommended continued cardiology outpatient follow-up at [facility] for potential cardiac ablation. The patient did have mild questionable atelectasis noted on his chest x-ray performed less than 48 hours ago, we are still waiting on repeat chest x-ray, however with no fever, no white count, no shortness of breath, I feel that actual pneumonia is unlikely and not clinically consistent with his picture. I discussed the case with lump machine operator Dr. Colunga he agrees with assessment and plan. I have extensively reviewed the treatment plan with the patient. I have addressed all patient concerns at this time. I have also discussed the plan with the admitting physician and they agree with the current assessment and plan and have agreed to assume responsibility for the patient. All parties demonstrate verbal understanding and agreement with our assessment and plan at this time. Upon my evaluation, this patient had a high probability of imminent or life- threatening deterioration, which required my direct attention, intervention, and personal management. I have personally provided 45 minutes of critical care time exclusive of time spent on separately billable procedures. Time includes review of laboratory data, radiology results, discussion with consultants, and monitoring for potential decompensation. Interventions were performed as documented above. CHEST X-RAY, PORTABLE AP VIEW: Comparison is 09/05/18. There is poor inspiration with crowding of the pulmonary vasculature. No focal consolidating infiltrates, effusions or pneumothoraces are identified. The heart size and pulmonary vasculature are within normal limits. The bones appear intact. IMPRESSION: Poor inspiration with low lung volumes. No definite acute consolidating infiltrate is identified. Exam(s) a MRI:MR angio brain wo SYMPTOM/DIAGNOSIS: DIZZY, RT ARM AND LELG WEAKNESS, A FIB, RVR MRA [place]: Routine examination was performed. The distal internal carotid arteries are unremarkable. No occlusion, aneurysm or significant stenosis is seen. The anterior cerebral arteries are unremarkable. No evidence of occlusion, aneurysm or significant stenosis. The middle cerebral arteries are unremarkable without evidence of occlusion, aneurysm or significant stenosis. The vertebral arteries and basilar artery are unremarkable without evidence of occlusion aneurysm or significant stenosis. The right posterior cerebral artery is unremarkable without stenosis, occlusion or an aneurysm. The left posterior cerebral artery arises from the posterior communicating artery. It shows no evidence of occlusion, aneurysm or significant stenosis. No acute abnormality. MRI BRAIN: Noncontrast examination. The ventricles and sulci are consistent with the patient's age. The diffusion weighted images show no evidence of an acute infarct. No intracranial hemorrhage is seen. The ventricles are intact. The basilar cisterns are patent. There is no acute midline shift or mass effect. There is a mucus retention cyst or polyp in the right maxillary sinus. There is opacification of the left sphenoid sinus. The remaining visualized paranasal sinuses are clear. The pituitary gland appears grossly unremarkable. IMPRESSION: No evidence of an acute infarct or intracranial hemorrhage. HPI General Date/Time Provider Initiated Documentation: 09/07/18 09:19 . HPI Narrative: This is a 52-year-old male with a past medical history of A. fib, CVA in March, coronary artery disease with 9 stents, who is on Eliquis, Plavix, who sees Dr. Bladimir Adler at [facility] for cardiology and Dr. Trevor Kenyon here for cardiology, who presents today for evaluation of chest pain and palpitations. Additionally over the past week or 2 the patient has had additional symptoms of dizziness. The patient is here for a few different occasions over the last week. He has had fairly thorough workups each time. The patient states that last night his chest pain started, he describes it as a central chest pain, with achiness and some stabbing that radiated between his shoulder blades bilaterally and back. The patient did go to work, and his symptoms were not worsened with exertion. He did have some associated lightheadedness and dizziness that worsened today. He states that his symptoms are similar to his previous episodes of A. fib with RVR. He states that it is slightly atypical from his previous cardiac issue. The patient did take one nitroglycerin at home which improved his pain somewhat, then he took a second nitroglycerin 1-2 hours later and this did nothing to improve his symptoms. He does have some associated burping as well as a mild cough, but denies any severe shortness of breath, or pleuritic chest pain. He denies any history of PE. The patient does have some associated ringing in his ears. Sometimes his dizziness comes on randomly, sometimes it comes on with movement. He denies any dark curtain's, thunderclap headache, or headache in general. He does admit to some mild chronic neck pain, but no other acute change. He denies any recent trauma. He does use caffeine, but avoids salt in his diet. Additionally the patient does admit to waking up with a mild limp on his right lower extremity. He does admit to chronic weakness on his right side that comes and goes secondary to his stroke that he had in March. The patient was here earlier this morning and seen by different provider, unfortunately the interaction appears to have been challenging, and the patient left without laboratory workup, or evaluation. He went to [facility], [place] where he was noted to continue to have chest pain, and palpitations with an elevated heart rate. He was then sent back here for further evaluation by EMS. Patient denies any other complaints at this time. Of note the patient does state that he has had multiple negative troponins and multiple negative stress tests in the past all of which he states were negative, however he still had subsequent cardiac disease. Patient denies any IV or illicit drug use. He states that he has been taking all of his home medications as directed including his sotalol, Eliquis and Plavix. Related Data Home Medications Medication Instructions Recorded Confirmed lansoprazole [Prevacid SoluTab] 30 mg PO DAILY 06/18/13 09/07/18 nitroglycerin [Nitrostat] 1 tab SUBLINGUAL Q5 MIN PRN X3 PRN 10/17/13 09/07/18 bupropion HCl 300 mg PO DAILY 10/16/15 09/07/18 isosorbide mononitrate 120 mg PO DAILY 10/16/15 09/07/18 multivitamin 1 ea PO DAILY 04/28/17 09/07/18 ascorbic acid (vitamin C) [Vitamin 1,000 mg PO DAILY 07/18/17 09/07/18 C] Eliquis 5 mg PO BID 30 Days #60 tab 02/24/18 09/07/18 Rosuvastatin Calcium 40 mg PO DAILY 05/09/18 09/07/18 sotalol [Betapace] 80 mg PO BID 05/09/18 09/07/18 biotin 1 tab PO DAILY 06/05/18 09/07/18 clopidogrel [Plavix] 75 mg PO DAILY 07/24/18 09/07/18 amitriptyline 25 mg PO DIRECTED 09/07/18 09/07/18 Previous Rx's Medication Instructions Recorded Eliquis 5 mg PO BID 30 Days #60 tab 02/24/18 Allergies Allergy/AdvReac Type Severity Reaction Status Date / Time atorvastatin calcium AdvReac Intermediate liver Unverified 09/05/18 06:22 [From Lipitor] problems niacin AdvReac Mild flushing Unverified 09/05/18 06:22 adhesive from monitor tabs Allergy Intermediate jones Uncoded 09/05/18 06:22 General Stated Complaint: Chest Pain MARQUIS: 2 Review of Systems Review of Systems All systems reviewed & are unremarkable except as noted in HPI and below PFSH Social History Smoking/Tobacco Use Status: Current every day alcohol intake: never substance use type: does not use Exam Narrative Exam Narrative: 1.Const: Well-nourished, Well-developed, appearing stated age 2.Eyes: PERRL, no conjunctival injection, and symmetrical lids. 3.ENT: Atraumatic external nose and ears. Moist MM. Neck: Symmetric, trachea midline, No thyromegaly. 4.CVS: +S1/S2, No murmurs or gallops. Tachycardic with an irregular rate peripheral pulses 2+ and equal in all extremities. Brisk capillary refill in all extremities. 5.RESP: Unlabored respiratory effort. Minimal crackles in the right lower lung bates. 6.GI: Soft, Nontender/Nondistended, No hepatosplenomegaly. No guarding or re bound. 7.MSK: Normocephalic/Atraumatic, Extremities w/o deformity or ttp No cyanosis or clubbing, Radial pulses +2 bilaterally. PLEASE SEE NEURO 8.Skin: Warm, Dry. No rashes or lesions. 9.Neuro: packing and wrapping supervisor II-XII grossly intact. All 6 cardinal planes of vision are fully intact. No evidence of rotatory or vertical nystagmus. The patient demonstrated a normal [id number], good dexterity. There was no evidence of dysdiadochokinesia. The patient does ambulate with a notable limp. Significant difficulty with right-sided hip flexion. Left lower extremity heel to gomez normal, however patient unable to perform right lower extremity heel to gomez test secondary to weakness on flexion at the hip. Right upper extremity demonstrates 5 out of 5 strength but weakness when compared to the left for all types of movement, particularly extension of the triceps. No pain with movement. Patient states that this is chronic. Patient demonstrates decreased plantar and dorsiflexion in the right lower extremity, relative 4-5 out of 5 strength of flexion and extension of the knee, but notable reduction of hip flexion and extension on exam with a strength of roughly 2 out of 5 on the right, and 5 out of 5 on the left. Sensation is intact for the upper and lower extremities however patient states that sensation is slightly decreased on the right lower extremity over its entirety when compared to the left. No evidence of total saddle anesthesia, normal rectal tone on my exam. Patient was able to verbalize butter cup with no slurring, or miss pronunciation. Patellar reflexes +2 bilaterally. Hints exam: Cerebellar function testing is relatively normal. The patient demonstrates a normal hints exam with no findings concerning for a central event. No vertical nystagmus. The head impulse test is negative for any significant central abnormality, however his symptoms are both worseneD with the past, and he is unable to have continued tracking of my nose, suggesting a positive head impulse test suggestive of a peripheral etiology. Normal test of skew. No suggestion of a central cerebellar event. 10.Psych: (AAO) x3. Appropriate mood and affect Course Vital Signs Temperature 36.6 C 09/07/18 09:09 Pulse 105 H 09/07/18 09:09 Respiratory Rate 18 09/07/18 09:09 Blood Pressure 107/83 09/07/18 09:09 Pulse Oximetry 98 09/07/18 09:09 Temperature 36.6 C 09/07/18 09:09 Temperature Source Temporal Artery Scan 09/07/18 09:09 Pulse 105 H 12/13/18 09:09 Respiratory Rate 18 09/07/18 09:09 Respiratory Effort 09/07/18 09:22 Respiratory Depth Normal 09/07/18 09:22 Blood Pressure 107/83 09/07/18 09:09 Blood Pressure Position Supine 09/07/18 09:09 Pulse Oximetry 98 09/07/18 09:09 Oxygen Delivery Method Room Air 09/07/18 09:09 Oxygen Flow Rate 0 09/07/18 09:09 Pain Level 7 09/07/18 09:09 Lab/Test Results Lab/Test Results: Laboratory Tests Range/Units 09/07/18 09/07/18 09:30 09:30 WBC (4.4-10.8) k/cumm 8.51 RBC (4.50-6.00) m/cumm 4.20 L Hgb (13.5-17.5) g/dL 13.2 L Hct (40.0-50.0) % 38.5 L MCV (80-95) fL 91.7 MCH (27.0-33.0) pg 31.4 MCHC (32.0-36.0) g/dL 34.3 RDW (11.8-14.1) % 13.9 Plt Count (130-400) x1000/uL 253 MPV (8.0-11.0) fL 9.1 Immature Gran % 0.4 Neutrophils % 57.5 Lymphocytes % 28.2 Monocytes % 11.0 Eosinophils % 2.5 Basophils % 0.4 Absolute Neutrophils (1.2-6.7) k/cumm 4.90 Absolute Lymphocytes (1.2-3.4) k/cumm 2.40 Absolute Monocytes (0.11-0.7) k/cumm 0.94 H Absolute Eosinophils (0.0-0.7) k/cumm 0.21 Absolute Basophils (0.0-0.2) k/cumm 0.03 PT (9.3-10.8) sec 9.9 INR (1.0-3.5) 1.0 APTT (21.0-31.4) sec 29.9
[2018-09-07 10:14] LABS: Troponin I < 0.02 ng/mL (0.00-0.06)
--- NOTE | 2018-09-07 10:19 | DI.MRI_ITS ---
SYMPTOM/DIAGNOSIS: DIZZY, RT ARM AND LEG WEAKNESS AFIB, RVR MRI BRAIN: Noncontrast examination. The ventricles and sulci are consistent with the patient's age. The diffusion weighted images show no evidence of an acute infarct. No intracranial hemorrhage is seen. The ventricles are intact. The basilar cisterns are patent. There is no acute midline shift or mass effect. There is a mucus retention cyst or polyp in the right maxillary sinus. There is opacification of the left sphenoid sinus. The remaining visualized paranasal sinuses are clear. The pituitary gland appears grossly unremarkable. IMPRESSION: No evidence of an acute infarct or intracranial hemorrhage.
--- NOTE | 2018-09-07 10:19 | DI.MRI_ITS ---
SYMPTOM/DIAGNOSIS: DIZZY, RT ARM AND LEG WEAKNESS. AFIB, RVR MRA NECK: Routine noncontrast examination was performed. The common carotid artery is unremarkable without occlusion, dissection or significant stenosis. The external carotid arteries are unremarkable without evidence of occlusion or significant stenosis. The internal carotid arteries are unremarkable without significant stenosis, occlusion or aneurysm. The vertebral arteries and basilar artery are unremarkable without evidence of occlusion, aneurysm or significant stenosis. IMPRESSION: Unremarkable examination.
--- NOTE | 2018-09-07 10:19 | DI.MRI_ITS ---
SYMPTOM/DIAGNOSIS: DIZZY, RT ARM AND LELG WEAKNESS, A FIB, RVR MRA [place]: Routine examination was performed. The distal internal carotid arteries are unremarkable. No occlusion, aneurysm or significant stenosis is seen. The anterior cerebral arteries are unremarkable. No evidence of occlusion, aneurysm or significant stenosis. The middle cerebral arteries are unremarkable without evidence of occlusion, aneurysm or significant stenosis. The vertebral arteries and basilar artery are unremarkable without evidence of occlusion aneurysm or significant stenosis. The right posterior cerebral artery is unremarkable without stenosis, occlusion or an aneurysm. The left posterior cerebral artery arises from the posterior communicating artery. It shows no evidence of occlusion, aneurysm or significant stenosis. No acute abnormality.
--- NOTE | 2018-09-07 10:42 | NUR.NOTE ---
Nursing Note: Pt awake and alert. c/o chest pain and increased right side weakness. Pt with past hx of stroke and occasional R side wekaness. unable to lift right leg off strecther and noted right weak hand grasps. HR 110's a-fib on monitor, cardizem given as ordered. Plan for MRI. Will continue to monitor.
--- NOTE | 2018-09-07 11:10 | NUR.NOTE ---
Nursing Note: Pt off unit to MRI
--- NOTE | 2018-09-07 11:57 | NUR.NOTE ---
Nursing Note: Returned from MRI, paient c/o head pain and chest pain, declining doug meds at this time. On cardiac monitoring, awaiting MRI results, will continue to monitor.
--- NOTE | 2018-09-07 13:42 | NUR.NOTE ---
Nursing Note: CARDIZEM INFUSING STARTED
--- NOTE | 2018-09-07 13:51 | NUR.NOTE ---
Nursing Note: Pt given meal tray, IV cardizem infusing as ordered. Plan is for patient to be admitted for further evaluation of a-fib. Will continue to monitor.
--- NOTE | 2018-09-07 14:05 | DI.RAD_ITS ---
SYMPTOMS/DIAGNOSIS: CHEST PAIN CHEST X-RAY, PORTABLE AP VIEW: Comparison is 09/05/18. There is poor inspiration with crowding of the pulmonary vasculature. No focal consolidating infiltrates, effusions or pneumothoraces are identified. The heart size and pulmonary vasculature are within normal limits. The bones appear intact. IMPRESSION: Poor inspiration with low lung volumes. No definite acute consolidating infiltrate is identified.
--- NOTE | 2018-09-07 14:53 | NUR.NOTE ---
Nursing Note:Report given Hayley ERIC
--- NOTE | 2018-09-07 17:31 | W.PM.HP.N ---
Date of service: 09/07/18 Time of Service: 17:32 Assessment and Plan (1) Atrial fibrillation: Current visit: No Status: Chronic Presence of recurrence of rapid A. fib despite antiarrhythmic therapy. The patient has experienced this in the past, often converting back to sinus rhythm. Was initiated on IV Cardizem and continued on his home regimen of sotalol. Will await and see if he spontaneously converts back to sinus rhythm, but in the meantime will also start low-dose oral Cardizem in an effort to slow down his rates and wean him off of IV calcium channel david. Of notes, the patient reports that he is not tolerated any increase in the sotalol dose in the past due to profound bradycardia, and on the current dosing regimen he runs in the 50s-60s. Will need to watch his rates very carefully. Monitor in ICU setting overnight while he is on Cardizem drip, and will rule out with serial cardiac biomarkers as well given his significant and extensive coronary history. Continue anticoagulation with apixaban. (2) CAD (coronary artery disease): Current visit: No Status: Chronic Currently without any significant EKG changes to indicate acute ischemia, and initial troponin is negative as well. Continue clopidogrel, long-acting nitrate, and high potency statin. He is also on sotalol as an antiarrhythmic. Continue nitroglycerin on a as needed basis. Will rule out with serial cardiac biomarkers given current chest discomfort in the setting of rapid A. fib. (3) Chest pain: Current visit: No Status: Acute Assessment and treatment as above. Qualifiers: Chest pain type: unspecified Ischemic chest pain type: Qualified Code(s): R07.9 - Chest pain, unspecified (4) Right sided weakness: Current visit: No Status: Acute Apparent transient weakness as per evaluation of the ED attending, with negative workup that included MRI and MRA of the brain and neck. Patient does have a chronic history of right-sided deficits following a left MCA stroke in 2017. Monitor symptoms closely. Patient is in the intensive care unit overnight, and will be monitored closely. (5) DVT prophylaxis: Current visit: No Status: Acute On apixaban chronically. Continue home regimen of PPI therapy for GI prophylaxis. History of Present Illness Chief Complaint: Chest Pain, Palpitations Narrative: 52-year-old man with a past medical history significant for A. fib on antiarrhythmic therapy and anticoagulation, as well as extensive history of coronary disease, presents to the emergency department at [facility] with complaints of chest pain and palpitations. Mr. Boucher as a history of coronary disease, with multiple prior PCI's with 9 prior stents, the last being placed in June 2018. Despite this he continues to smoke daily. He also has a history of atrial fibrillation for which he takes both sotalol and apixaban. He had a prior CVA with residual right-sided deficits. Other past medical history includes hypertension, dyslipidemia, likely peripheral vascular disease with history of intermittent claudication, anemia, chronic back pain, history of renal CA with recurrence and resection x2, DONAL, and a prior diagnosis of esophagitis and gastritis. Mr. boucher is also seen quite frequently in the emergency department with recurrent bouts of chest pain and palpitations. He initially presented for evaluation early this morning, and due to apparent disagreement with the ED attending left abruptly. He presented back this afternoon with reported palpitations and chest discomfort, ongoing for over a day per history. He was found to be in A. fib with a rapid ventricular response. Lab work was grossly normal, including a negative troponin. There was also some reported worsening weakness of the patient's chronic post CVA right-sided deficits for which she underwent an MRI of the brain, reportedly without any acute findings. He was started on an IV Cardizem drip, and referred for admission for further evaluation and treatment. Review of Systems Review of Systems All systems reviewed & are unremarkable except as noted in HPI and below [facility] Social History Smoking/Tobacco Use Status: Current every day alcohol intake: never substance use type: does not use Meds Home Medications Medication Instructions Recorded Confirmed Type lansoprazole [Prevacid SoluTab] 30 mg PO DAILY 06/18/13 09/07/18 History nitroglycerin [Nitrostat] 1 tab SUBLINGUAL Q5 MIN PRN X3 PRN 10/17/13 09/07/18 History bupropion HCl 300 mg PO DAILY 10/16/15 09/07/18 History isosorbide mononitrate 120 mg PO DAILY 10/16/15 09/07/18 History multivitamin 1 ea PO DAILY 04/28/17 09/07/18 History ascorbic acid (vitamin C) [Vitamin 1,000 mg PO DAILY 07/18/17 09/07/18 History C] Eliquis 5 mg PO BID 30 Days #60 tab 02/24/18 09/07/18 Rx Rosuvastatin Calcium 40 mg PO DAILY 05/09/18 09/07/18 History sotalol [Betapace] 80 mg PO BID 05/09/18 09/07/18 History biotin 1 tab PO DAILY 06/05/18 09/07/18 History clopidogrel [Plavix] 75 mg PO DAILY 07/24/18 09/07/18 History Allergies Allergy/AdvReac Type Severity Reaction Status Date / Time atorvastatin calcium AdvReac Intermediate liver Unverified 09/05/18 06:22 [From Lipitor] problems niacin AdvReac Mild flushing Unverified 09/05/18 06:22 adhesive from monitor tabs Allergy Intermediate jones Uncoded 09/05/18 06:22 Exam Narrative Exam Narrative: General: Patient appears comfortable, AAOX3, NAD Neck: Supple CV: Irregular, borderline tachycardic, S1S2, No rubs, murmurs, or gallops. Pulmonary: Clear to auscultation bilaterally, no crackles, wheezing, or rhonchi Abdomen: + Bowel Sounds, soft, nontender, nondistended Vascular: No lower extremity edema Psych: Normal mood and affect. Results Imaging Additional studies: CHEST X-RAY, PORTABLE AP VIEW: Comparison is 09/05/18. There is poor inspiration with crowding of the pulmonary vasculature. No focal consolidating infiltrates, effusions or pneumothoraces are identified. The heart size and pulmonary vasculature are within normal limits. The bones appear intact. IMPRESSION: Poor inspiration with low lung volumes. No definite acute consolidating infiltrate is identified. Exam(s) a MRI:MR brain wo SYMPTOM/DIAGNOSIS: DIZZY, RT ARM AND LEG WEAKNESS AFIB, RVR MRI BRAIN: Noncontrast examination. The ventricles and sulci are consistent with the patient's age. The diffusion weighted images show no evidence of an acute infarct. No intracranial hemorrhage is seen. The ventricles are intact. The basilar cisterns are patent. There is no acute midline shift or mass effect. There is a mucus retention cyst or polyp in the right maxillary sinus. There is opacification of the left sphenoid sinus. The remaining visualized paranasal sinuses are clear. The pituitary gland appears grossly unremarkable. IMPRESSION: No evidence of an acute infarct or intracranial hemorrhage. Exam(s) a MRI:MR angio neck wo SYMPTOM/DIAGNOSIS: DIZZY, RT ARM AND LEG WEAKNESS. AFIB, RVR MRA NECK: Routine noncontrast examination was performed. The common carotid artery is unremarkable without occlusion, dissection or significant stenosis. The external carotid arteries are unremarkable without evidence of occlusion or significant stenosis. The internal carotid arteries are unremarkable without significant stenosis, occlusion or aneurysm. The vertebral arteries and basilar artery are unremarkable without evidence of occlusion, aneurysm or significant stenosis. IMPRESSION: Unremarkable examination. Exam(s) a MRI:MR angio brain wo SYMPTOM/DIAGNOSIS: DIZZY, RT ARM AND LELG WEAKNESS, A FIB, RVR MRA [place]: Routine examination was performed. The distal internal carotid arteries are unremarkable. No occlusion, aneurysm or significant stenosis is seen. The anterior cerebral arteries are unremarkable. No evidence of occlusion, aneurysm or significant stenosis. The middle cerebral arteries are unremarkable without evidence of occlusion, aneurysm or significant stenosis. The vertebral arteries and basilar artery are unremarkable without evidence of occlusion aneurysm or significant stenosis. The right posterior cerebral artery is unremarkable without stenosis, occlusion or an aneurysm. The left posterior cerebral artery arises from the posterior communicating artery. It shows no evidence of occlusion, aneurysm or significant stenosis. No acute abnormality. Labs : 09/07/18 09:30 09/07/18 09:30 Laboratory Results - last 24 hr 09/07/18 09/07/18 09/07/18 09:30 09:30 09:30 WBC 8.51 RBC 4.20 L Hgb 13.2 L Hct 38.5 L MCV 91.7 MCH 31.4 MCHC 34.3 RDW 13.9 Plt Count 253 MPV 9.1 Immature Gran % 0.4 Neutrophils % 57.5 Lymphocytes % 28.2 Monocytes % 11.0 Eosinophils % 2.5 Basophils % 0.4 Absolute Neutrophils 4.90 Absolute Lymphocytes 2.40 Absolute Monocytes 0.94 H Absolute Eosinophils 0.21 Absolute Basophils 0.03 PT 9.9 INR 1.0 APTT 29.9 D-Dimer 345 Sodium 139 Potassium 4.6 Chloride 102 Carbon Dioxide 27.2 Anion Gap 9.8 BUN 12 Creatinine 0.96 Estimated GFR/1.73 m2 >= 60.00 Glucose 87 Calcium 9.5 Magnesium 1.9 Total Bilirubin 0.2 AST 17 ALT 24 Alkaline Phosphatase 88 Troponin I < 0.02 Total Protein 7.9 Albumin 3.6 TSH 0.94 Last Vital Signs Temp 36.6 C 09/07/18 09:09 Pulse 62 09/07/18 16:46 Resp 17 09/07/18 16:46 BP 107/69 09/07/18 16:46 Pulse Ox 95 09/07/18 16:46
[2018-09-07 18:32] LABS: Troponin I < 0.02 ng/mL (0.00-0.06)
[2018-09-07] MEDS: Normal Saline Flush 10 ML SYR (19:00)
[2018-09-07] MEDS: Rosuvastatin 10 MG TAB 40 MG PO (19:50)
[2018-09-07] MEDS: Apixaban 5 MG TAB PO (19:50)
[2018-09-07] MEDS: Amitriptyline 25 MG TAB PO (20:55)
[2018-09-08] VITALS (38 sets, daily range): BP systolic 125–127; BP diastolic 65–73; PULSE 53–75; RESP 11–22; TEMP 36.5–36.7; O2SAT 96–97
[2018-09-08] MEDS: buPROPion-XL 150 MG TABCR 300 MG PO (05:28)
--- NOTE | 2018-09-08 06:37 | NUR.NOTE ---
09/08/18 06:40 On 09/07/18 approx 1900 Prior shift nurse had pulled a single 30mg Diltiazem pill for admin, and partially opened the package. She subsequently learned that the med needed to be retimed for midnight. The med in the partially opened package was given to me at the shift handoff. Shortly thereafter the pt converted to sinus stacia rhythm, and this med was D/C by the provider. There was no way to scan this med retroactively and chart it as not given, [facility] This nurse destroyed the pill, and discarded the packaging. Note:
[2018-09-08 07:15] LABS: Abs Immature Grans 0.03 k/cumm (0.0-0.09); Absolute Basophil Count 0.05 k/cumm (0.0-0.2); Absolute Lymphocyte Count 2.43 k/cumm (1.2-3.4); Absolute Monocyte Count 0.69 k/cumm (0.11-0.7); Absolute Neutrophil Count 4.68 k/cumm (1.2-6.7); Basophils % 0.6; Eosinophils % 3.7; HCT 41.2 % (40.0-50.0); HGB 13.9 g/dL (13.5-17.5); Immature Grans % 0.4; Lymphocytes % 29.7; Mean Corp. HGB Concentration 33.7 g/dL (32.0-36.0); Mean Corpuscular Hemoglobin 31.2 pg (27.0-33.0); Mean Corpuscular Volume 92.4 fL (80-95); Mean Platelet Volume 9.9 fL (8.0-11.0); Monocytes % 8.4; Neutrophils % 57.2; Platelet Count 228 x1000/uL (130-400); RBC 4.46 m/cumm (4.50-6.00); RBC Distribution Width 14.1 % (11.8-14.1); White Blood Cell Count 8.18 k/cumm (4.4-10.8)
[2018-09-08 07:29] LABS: BUN 15 mg/dL (7-18); CREATININE 0.97 mg/dL (0.70-1.30); Calcium 8.7 mg/dL (8.5-10.1); Chloride 106 mmol/L (98-107); Glucose 109 mg/dL (70-100); Potassium 4.2 mmol/L (3.5-5.1); Sodium 142 mmol/L (136-145)
[2018-09-08 07:34] LABS: Troponin I < 0.02 ng/mL (0.00-0.06)
[2018-09-08] MEDS: Multivitamin TAB 1 TAB PO (08:15)
[2018-09-08] MEDS: Lansoprazole 30 MG CAPCR PO (08:16)
[2018-09-08] MEDS: Ascorbic Acid 500 MG TAB 1000 MG PO (08:16)
[2018-09-08] MEDS: Clopidogrel 75 MG TAB PO (08:16)
[2018-09-08] MEDS: Apixaban 5 MG TAB PO (08:17)
[2018-09-08] MEDS: Isosorbide Mononitrate 60 MG TABCR 120 MG PO (08:17)
[2018-09-08] MEDS: Normal Saline Flush 10 ML SYR IVP (08:21)
[2018-09-08] MEDS: Magnesium Oxide 400 MG TAB PO (09:27)
--- NOTE | 2018-09-08 10:36 | PDOC.CMIN ---
Care Management Initial Assess REASON FOR HOSPITALIZATION:: AFIB with RVR PAST MEDICAL HISTORY/PAST SURGICAL HISTORY:: Anemia, AFIB, back pain, chronic, chest pain, CAD, depression with anxiety, dysesthesia, dyspepsia, esophagitis, gastritis, hemiplegia, hx of kidney cancer, hx of adenosmatous polyp of colon, ischemic stroke, pulmonary nodules, sleep apnea, tobacco use, cardiac cath, colonoscopy, EGD-MAC, esophagogastroduodenoscopy, partial nephrectomy, repair of inguinal hernia PREVIOUS FUNCTIONAL STATUS/SOCIAL/FAMILY SUPPORTS:: Adams resides with his of 34 years, Carmen. 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 Adams reports he is independent with ADLs in the community. CURRENT FUNCTIONAL STATUS:: Adams was lying in bed when CM met with him. He was open to speaking with this newswriter though he does give the impression of being somewhat abrasive-he was easily engagable with some effort. He requested discussing his admission with JAMESON Lantigua; CM agreed to prioritize this contact. Has patient been provided with information about the portal?: Yes Did the patient sign up for the portal?: No CODE STATUS:: Full Code INSURANCE COVERAGE / FINANCIAL ISSUES:: [facility] CURRENT HOME/COMMUNITY SERVICES/EQUIPMENT:: No current services per patient report. PRIMARY CARE PHYSICIAN:: Delonte Corral MD. POTENTIAL DISCHARGE NEEDS:: Follow up appointment with PCP. PATIENT/FAMILY EDUCATION NEEDS:: Review discharge instructions, discuss Ask Me Three. Grievance process; connected Adams with Satnam Gomes/[facility]. ANTICIPATED BARRIERS TO DISCHARGE:: None identified. TRANSPORTATION:: Via private vehicle with his . PLAN:: Adams will return home when ready per MD. He will follow up with his PCP and plan of care as prescribed. He will transport via private vehicle with his .
--- NOTE | 2018-09-08 11:39 | DSE_ITS ---
Date of service: 09/08/18 Time of Service: 11:36 DS: Diagnosis Discharge Diagnosis (1) Atrial fibrillation: Status: Chronic (2) CAD (coronary artery disease): Status: Chronic (3) Chest pain: Status: Acute (4) Right sided weakness: Status: Acute Discharge Plan Disposition Patient Disposition: HOME Condition: Stable Discharge Details Reason For Visit: AFIB WITH RVR Admit Date/Time: 09/07/18 13:52 Admit Provider: Colin Colunga Attending Provider: Colin Colunga Primary Care Provider: Delonte Corral Hospital Course Hospital Course: CC: Chest Pain, Palpitations HPI: 52-year-old man with a past medical history significant for A. fib on antiarrhythmic therapy and anticoagulation, as well as extensive history of coronary disease, presented to the emergency department at [facility] with complaints of chest pain and palpitations. Mr. Boucher has a history of coronary disease, with multiple prior PCI's with 9 prior stents, the last being placed in June 2018. Despite this he continues to smoke daily. He also has a history of atrial fibrillation for which he takes both sotalol and apixaban. He had a prior CVA with residual right-sided deficits. Other past medical history includes hypertension, dyslipidemia, likely peripheral vascular disease with history of intermittent claudication, anemia, chronic back pain, history of renal CA with recurrence and resection x2, DONAL, and a prior diagnosis of esophagitis and gastritis. Mr. boucher is also seen quite frequently in the emergency department with recurrent bouts of chest pain and palpitations. He initially presented for evaluation early on the morning of admission, and due to apparent disagreement with the ED attending left abruptly. He presented back that afternoon with reported palpitations and chest discomfort, ongoing for over a day per history. He was found to be in A. fib with RVR. Lab work was grossly normal, including a negative troponin. There was also some reported worsening weakness of the patient's chronic post CVA righ t-sided deficits for which he underwent an MRI of the brain, reportedly without any acute findings. He was started on an IV Cardizem drip, and referred for admission for further evaluation and treatment. Hospital Course: (1) Atrial fibrillation: Presence of recurrence of rapid A. fib despite antiarrhythmic therapy. The patient has experienced this in the past, often converting back to sinus rhythm. Was initiated on IV Cardizem, low dose oral Cardizem, and continued on his home regimen of sotalol. Overnight he had a couple of brief pauses of slightly more than 2 seconds without converting, and a 6 second pause after which he converted, and became bradycardic. Both his IV and oral cardizem were discontinued. Of notes, the patient reports that he is not tolerated any increase in the sotalol dose in the past due to profound bradycardia, and on the current dosing regimen he runs in the 50s-60s. Will continue current regimen while awaiting ablation scheduled at [facility] in October. Six second pause is not concerning clinically in this setting immediately prior to converting to NSR. Continue anticoagulation with apixaban. (2) CAD (coronary artery disease): Currently without any significant EKG changes to indicate acute ischemia, and ruled out for ACS with serial Cardiac Biomarkers. Continue clopidogrel, long- acting nitrate, and high potency statin. He is also on sotalol as an antiarrhythmic. Continue nitroglycerin on a as needed basis. (3) Chest pain: Assessment and treatment as above. (4) Right sided weakness: Apparent transient worsening weakness as per evaluation by the ED attending, with negative workup that included MRI and MRA of the brain and neck. Patient does have a chronic history of right-sided deficits following a left MCA stroke in 2017. Monitor symptoms closely. Patient is in the intensive care unit overnight, and will be monitored closely. (5) DVT prophylaxis: Current visit: No Status: Acute On apixaban chronically. Continue home regimen of PPI therapy for GI prophylaxis. Home Meds and New Rx's Prescriptions: Continued ascorbic acid (vitamin C) [Vitamin C] 1,000 MG tablet 1,000 mg PO DAILY RF: 0 Eliquis 5 MG tablet 5 mg PO BID 30 Days Qty: 60 RF: 4 lansoprazole [Prevacid SoluTab] 30 MG tablet,disintegrat, delay rel 30 mg PO DAILY RF: 0 nitroglycerin [Nitrostat] 0.4 MG tablet, sublingual 1 tab Sublingual Q5 MIN PRN X3 PRNRF: 0 bupropion HCl 150 MG tablet extended release 12 hr 300 mg PO DAILY RF: 0 isosorbide mononitrate 120 MG tablet extended release 24 hr 120 mg PO DAILY RF: 0 multivitamin 1 EACH capsule 1 ea PO DAILY RF: 0 Rosuvastatin Calcium 40 MG tablet 40 mg PO DAILY RF: 0 sotalol [Betapace] 80 MG tablet 80 mg PO BID RF: 0 biotin 800 mcg Tablet 1 tab PO DAILY RF: 0 clopidogrel [Plavix] 75 mg Tablet 75 mg PO DAILY RF: 0 amitriptyline 25 mg Tablet 25 mg PO DIRECTED RF: 0 Discharge Instructions Activity:: No Strenuous Activity Equipment/Supplies:: No Equipment Needed Diet:: Heart Healthy Discharge Orders Discharge Orders: Discharge Order (Routine); Ordered 09/08/18 Ordered By: Colin Colunga DS: Data Vitals/I&O Vitals and I&O: Vital Signs Temperature 36.5 C 09/08/18 08:10 Temperature Source Temporal Artery Scan 09/08/18 08:10 Pulse 53 L 09/08/18 08:27 Pulse 62 09/08/18 09:20 Respiratory Rate 14 09/08/18 09:20 Respiratory Effort 09/08/18 08:10 Respiratory Depth Normal 09/08/18 08:10 Respiratory Pattern Normal 09/08/18 08:10 Blood Pressure 126/69 09/08/18 08:27 Blood Pressure Mean 84 09/08/18 08:27 Blood Pressure Position Supine 09/07/18 23:47 Pulse Oximetry 97 09/08/18 08:27 Oxygen Delivery Method Room Air 09/07/18 19:10 Oxygen Flow Rate 0 09/07/18 19:10 Pain Level 1 09/08/18 08:10 Intake & Output 09/07/18 09/07/18 09/08/18 11:59 23:59 11:59 Intake Total 1000 / 1791.167 791.167 / 5388.160 2753 / 1118 Output Total 850 / 850 400 / 400 Balance 1000 / 941.167 -58.833 / 941.167 718 / 718 Weight 105 kg 97.5 kg 96.7 kg Intake: IV 1000 / 1071.167 71.167 / 1071.167 10 / 10 Oral 720 / 720 1108 / 1108 Output: Urine 850 / 850 400 / 400 Other: Urine Color Yellow Yellow Urine Appearance Clear Clear Urine Odor Normal None Comment History of left kidney cancer History of left kidney cancer Voiding Methods Urinal Urinal Completed studies during hospitalization [Text1]: CHEST X-RAY, PORTABLE AP VIEW: Comparison is 09/05/18. There is poor inspiration with crowding of the pulmonary vasculature. No focal consolidating infiltrates, effusions or pneumothoraces are identified. The heart size and pulmonary vasculature are within normal limits. The bones appear intact. IMPRESSION: Poor inspiration with low lung volumes. No definite acute consolidating infiltrate is identified. Exam(s) a MRI:MR brain wo SYMPTOM/DIAGNOSIS: DIZZY, RT ARM AND LEG WEAKNESS AFIB, RVR MRI BRAIN: Noncontrast examination. The ventricles and sulci are consistent with the patient's age. The diffusion weighted images show no evidence of an acute infarct. No intracranial hemorrhage is seen. The ventricles are intact. The basilar cisterns are patent. There is no acute midline shift or mass effect. There is a mucus retention cyst or polyp in the right maxillary sinus. There is opacification of the left sphenoid sinus. The remaining visualized paranasal sinuses are clear. The pituitary gland appears grossly unremarkable. IMPRESSION: No evidence of an acute infarct or intracranial hemorrhage. Exam(s) a MRI:MR angio neck wo SYMPTOM/DIAGNOSIS: DIZZY, RT ARM AND LEG WEAKNESS. AFIB, RVR MRA NECK: Routine noncontrast examination was performed. The common carotid artery is unremarkable without occlusion, dissection or significant stenosis. The external carotid arteries are unremarkable without evidence of occlusion or significant stenosis. The internal carotid arteries are unremarkable without significant stenosis, occlusion or aneurysm. The vertebral arteries and basilar artery are unremarkable without evidence of occlusion, aneurysm or significant stenosis. IMPRESSION: Unremarkable examination. Exam(s) a MRI:MR angio brain wo SYMPTOM/DIAGNOSIS: DIZZY, RT ARM AND LELG WEAKNESS, A FIB, RVR MRA [place]: Routine examination was performed. The distal internal carotid arteries are unremarkable. No occlusion, aneurysm or significant stenosis is seen. The anterior cerebral arteries are unremarkable. No evidence of occlusion, aneurysm or significant stenosis. The middle cerebral arteries are unremarkable without evidence of occlusion, aneurysm or significant stenosis. The vertebral arteries and basilar artery are unremarkable without evidence of occlusion aneurysm or significant stenosis. The right posterior cerebral artery is unremarkable without stenosis, occlusion or an aneurysm. The left posterior cerebral artery arises from the posterior communicating artery. It shows no evidence of occlusion, aneurysm or significant stenosis. No acute abnormality. Labs on day of discharge: Labs from last 24 hours 09/08/18 09/08/18 09/07/18 06:42 06:42 18:00 WBC 8.18 RBC 4.46 L Hgb 13.9 Hct 41.2 MCV 92.4 MCH 31.2 MCHC 33.7 RDW 14.1 Plt Count 228 MPV 9.9 Immature Gran % 0.4 Neutrophils % 57.2 Lymphocytes % 29.7 Monocytes % 8.4 Eosinophils % 3.7 Basophils % 0.6 Absolute Neutrophils 4.68 Absolute Lymphocytes 2.43 Absolute Monocytes 0.69 Absolute Eosinophils 0.30 Absolute Basophils 0.05 Sodium 142 Potassium 4.2 Chloride 106 Carbon Dioxide 27.0 Anion Gap 9.0 BUN 15 Creatinine 0.97 Estimated GFR/1.73 m2 >= 60.00 Glucose 109 H Calcium 8.7 Troponin I < 0.02 < 0.02 PFSH Social History Smoking/Tobacco Use Status: Current every day alcohol intake: never substance use type: does not use
--- NOTE | 2018-09-08 16:14 | INITIAL_ITS ---
Care Management Initial Assess REASON FOR HOSPITALIZATION:: AFIB with RVR PAST MEDICAL HISTORY/PAST SURGICAL HISTORY:: Anemia, AFIB, back pain, chronic, chest pain, CAD, depression with anxiety, dysesthesia, dyspepsia, esophagitis, gastritis, hemiplegia, hx of kidney cancer, hx of adenosmatous polyp of colon, ischemic stroke, pulmonary nodules, sleep apnea, tobacco use, cardiac cath, colonoscopy, EGD-MAC, esophagogastroduodenoscopy, partial nephrectomy, repair of inguinal hernia PREVIOUS FUNCTIONAL STATUS/SOCIAL/FAMILY SUPPORTS:: Adams resides with his of 34 years, Carmen. 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 Adams reports he is independent with ADLs in the community. CURRENT FUNCTIONAL STATUS:: Adams was lying in bed when CM met with him. He was open to speaking with this food writer though he does give the impression of being somewhat abrasive-he was easily engagable with some effort. He requested discussing his admission with JAMESON Lantigua; CM agreed to prioritize this contact. Has patient been provided with information about the portal?: Yes Did the patient sign up for the portal?: No CODE STATUS:: Full Code INSURANCE COVERAGE / FINANCIAL ISSUES:: [facility] CURRENT HOME/COMMUNITY SERVICES/EQUIPMENT:: No current services per patient report. PRIMARY CARE PHYSICIAN:: Delonte Corral MD. POTENTIAL DISCHARGE NEEDS:: Follow up appointment with PCP. PATIENT/FAMILY EDUCATION NEEDS:: Review discharge instructions, discuss Ask Me Three. Grievance process; connected Adams with Satnam Gomes/[facility]. ANTICIPATED BARRIERS TO DISCHARGE:: None identified. TRANSPORTATION:: Via private vehicle with his . PLAN:: Adams will return home when ready per MD. He will follow up with his PCP and plan of care as prescribed. He will transport via private vehicle with his .
== END 2018-09-08 13:45 | disposition home or self-care (01) | DRG 310 ==
LOC: ER 14:36 → ICU 15:05
PROVIDERS: Admitting Provider Internal Medicine; Emergency Provider Student in an Organized Health Care Education/Training Program; PCP Internal Medicine; Visit Provider Internal Medicine
DX: I48.91 Unspecified atrial fibrillation (principal); I47.2 Ventricular tachycardia; I25.10 Atherosclerotic heart disease of native coronary artery without angina pectoris; R07.9 Chest pain, unspecified; R53.1 Weakness; F17.210 Nicotine dependence, cigarettes, uncomplicated; Z95.5 Presence of coronary angioplasty implant and graft; Z79.01 Long term (current) use of anticoagulants
CPT/HCPCS: 36415; 70544; 70547; 80048; 80053; 93005; 96361; 96365; 96375; 99223; 99238; 99291; 70551; 71045; 83735; 84443; 84484; 85025; 85379; 85610; 85730; 93010

== ENCOUNTER 2018-09-13 13:53 | Outpatient (REF) | payer BC, SELFPAY ==
[2018-09-13 22:51] LABS: Magnesium 1.8 mg/dL (1.8-2.4)
== END 2018-09-13 14:13 ==
LOC: NCHCN 13:53
PROVIDERS: PCP Internal Medicine; Visit Provider Nurse Practitioner
DX: E83.42 Hypomagnesemia (principal)
CPT/HCPCS: 83735

== ENCOUNTER 2018-09-14 01:53 | Outpatient (CLI) | payer BC, SELFPAY ==
--- NOTE | 2018-09-14 07:00 | DI.US_ITS ---
SYMPTOMS/DIAGNOSIS: NECK MASS, R22.1, TENDER, RIGHT ARM WEAKNESS ULTRASOUND EXAMINATION OF THE RIGHT POSTERIOR NECK: A solid mass is noted in the right posterior neck measuring approximately 16 x 12.7 mm. The lesion is avascular and has ultrasound characteristics which would be typical for a lipoma. If there is strong specific further clinical question, then further evaluation with MRI could be considered.
== END 2018-09-14 02:13 ==
PROVIDERS: PCP Internal Medicine; Visit Provider Nurse Practitioner
DX: R22.1 Localized swelling, mass and lump, neck (principal); R29.898 Other symptoms and signs involving the musculoskeletal system; D17.0 Benign lipomatous neoplasm of skin and subcutaneous tissue of head, face and neck
CPT/HCPCS: 76536

== ENCOUNTER 2018-09-16 06:39 | Emergency (ER) | payer BC, SELFPAY ==
[2018-09-16] VITALS (16 sets, daily range): BP systolic 113–138; BP diastolic 71–106; PULSE 53–66; RESP 11–25; TEMP 37; O2SAT 94–98
--- NOTE | 2018-09-16 07:03 | NUR.NOTE ---
MD Collazo at the bedside.
--- NOTE | 2018-09-16 07:17 | ED.GENADUL_ITS ---
Discharge Plan Disposition Patient Disposition: HOME Discharge Details Chief Complaint: Dizzy/Sync Clinical Impression: Dizziness, Vertigo Primary Care Provider: Delonte Corral ED Provider: Bladimir Collazo Home Meds and New Rx's Prescriptions: New meclizine 25 mg tablet 25 mg PO TID PRN (Reason: Dizziness) Qty: 30 RF: 0 No Action ascorbic acid (vitamin C) [Vitamin C] 1,000 MG tablet 1,000 mg PO DAILY RF: 0 Eliquis 5 MG tablet 5 mg PO BID 30 Days Qty: 60 RF: 4 lansoprazole [Prevacid SoluTab] 30 MG tablet,disintegrat, delay rel 30 mg PO DAILY RF: 0 nitroglycerin [Nitrostat] 0.4 MG tablet, sublingual 1 tab Sublingual Q5 MIN PRN X3 PRNRF: 0 bupropion HCl 150 MG tablet extended release 12 hr 300 mg PO DAILY RF: 0 isosorbide mononitrate 120 MG tablet extended release 24 hr 120 mg PO DAILY RF: 0 multivitamin 1 EACH capsule 1 ea PO DAILY RF: 0 Rosuvastatin Calcium 40 MG tablet 40 mg PO DAILY RF: 0 sotalol [Betapace] 80 MG tablet 80 mg PO BID RF: 0 biotin 800 mcg Tablet 1 tab PO DAILY RF: 0 clopidogrel [Plavix] 75 mg Tablet 75 mg PO DAILY RF: 0 amitriptyline 25 mg Tablet 25 mg PO DIRECTED RF: 0 Discharge Instructions Instructions: Dizziness (ED) Additional Instructions: follow up with your primary care provider within 1-2 weeks if you have chest pain, fevers, difficulty breathing or weakness return to the emergency department for evaluation Medical Decision Making 52 yo male with hx of afib on eliquis, cad, cva, comes in with intermittent room spinning sensations lasting 5-10 minutes. States first episode started yesterday while driving and had another episdoe while getting coffee this morning .HE denies loc, chest pain, sob ,fevers, chills, abd pain, n/v. Is walking on his own, no focal deficits, has mild horizontal nystagmus when looking to the left otherwise reassuring cranial nerve exam and reassuring HIINTS exam so doubt acute cva. His symptoms sound typical of peripheral vertigo but given his hx will eval for possible anemia, electrolyte abnormality and acs and monitor pt's labs are unremarkable, remains hd stable without symptoms. I recommended second troponin to exclude acs but he declined and wants to be d/c'd, has capacity to make his own decisions and understands risks of leaving without the second troponin including and disability. Will prescribe meclizine and advised f/u with pcp and return precautions given Differential Diagnosis vertigo, anemia, arrythmia Medical Records Medical records reviewed: Yes I reviewed the patient's medical records. Lab Data Lab results reviewed: Yes I reviewed the patient's lab results. ECG Data Attestation: I personally reviewed and interpreted this ECG (s) as follows: Prior ECG tracings: not available for review Interpretation: sinus bradycardia, rate of 57, pr 156, qtc 411, no acute st t wave ischemic findings HPI General Mode of arrival: ambulatory . Date/Time Provider Initiated Documentation: 09/16/18 06:45 . Limitations to Documentation: no limitations . Information obtained by: patient . History of Present Illness 52 year old M presents to the emergency department with the chief complaint of dizziness, described as moderate, Patient started experiencing this day(s) (1) and it has been intermittent. No relieving factors improve symptom(s), No exacerbating factors reported . Patient did receive the following treatments prior to arrival, none Related Data Home Medications Medication Instructions Recorded Confirmed lansoprazole [Prevacid SoluTab] 30 mg PO DAILY 06/18/13 09/16/18 nitroglycerin [Nitrostat] 1 tab SUBLINGUAL Q5 MIN PRN X3 PRN 10/17/13 09/16/18 bupropion HCl 300 mg PO DAILY 10/16/15 09/16/18 isosorbide mononitrate 120 mg PO DAILY 10/16/15 09/16/18 multivitamin 1 ea PO DAILY 04/28/17 09/16/18 ascorbic acid (vitamin C) [Vitamin 1,000 mg PO DAILY 07/18/17 09/16/18 C] Eliquis 5 mg PO BID 30 Days #60 tab 02/24/18 09/16/18 Rosuvastatin Calcium 40 mg PO DAILY 05/09/18 09/16/18 sotalol [Betapace] 80 mg PO BID 05/09/18 09/16/18 biotin 1 tab PO DAILY 06/05/18 09/16/18 clopidogrel [Plavix] 75 mg PO DAILY 07/24/18 09/16/18 amitriptyline 25 mg PO DIRECTED 09/07/18 09/16/18 meclizine 25 mg PO TID PRN #30 tab 09/16/18 Previous Rx's Medication Instructions Recorded Eliquis 5 mg PO BID 30 Days #60 tab 02/24/18 meclizine 25 mg PO TID PRN #30 tab 09/16/18 Allergies Allergy/AdvReac Type Severity Reaction Status Date / Time atorvastatin calcium AdvReac Intermediate liver Unverified 09/16/18 06:49 [From Lipitor] problems niacin AdvReac Mild flushing Unverified 09/16/18 06:49 adhesive from monitor tabs Allergy Intermediate jones Uncoded 09/16/18 06:49 General Stated Complaint: Dizzy/Sync MARQUIS: 2 Review of Systems Review of Systems All systems reviewed & are unremarkable except as noted in HPI and below Constitutional Denies chills, Denies fever(s) and Denies weakness Eyes Denies loss of vision Cardiovascular Denies chest pain and Denies dyspnea Respiratory Denies dyspnea Gastrointestinal Denies abdominal pain, Denies nausea and Denies vomiting Genitourinary Denies dysuria Integumentary/Breasts Denies rash Neurologic Denies loss of vision and Denies weakness PFSH Medical History Atrial fibrillation (Chronic) Anemia Back pain, chronic Chest pain Coronary artery disease Depression with anxiety Dysesthesia Dyslipidemia Dyspepsia Esophagitis Gastritis Hemiplegia History of kidney cancer Hx of adenomatous polyp of colon Ischemic stroke Pulmonary nodules Sleep apnea Tobacco use Surgical History Hx of esophagogastroduodenoscopy (Chronic ~05/2018) Colonoscopy - MAC (08/03/17) EGD - MAC (08/03/17) Partial Nephrectomy Repair of inguinal hernia cardiac cath Social History Smoking/Tobacco Use Status: Current every day alcohol intake: never substance use type: does not use Exam Const General: no acute distress Orientation: alert HENMT Head: normal to inspection Ears: external ears normal General nose exam: external nose normal Mouth: moist mucous membranes Eyes General: appearance normal, both eyes and all related structures Neck Neck: normal visual inspection Resp Effort & Inspection: normal respiratory effort and able to speak in complete sentences Cardio Rate: regular rate Skin General skin exam: no rashes or lesions noted Neuro General: alert and oriented x3 Cranial Nerves: CN's II-XI intact bilaterally Cognition: normal cognition Speech: speech normal Gait: normal gait Motor: muscle tone normal throughout Sensory Exam: no sensory deficits noted Extrem General: normal to inspection Psych Mental Status: mental status grossly normal Course Vital Signs Temperature 37.0 C 09/16/18 06:44 Pulse 58 L 09/16/18 06:44 Respiratory Rate 17 09/16/18 06:44 Blood Pressure 129/80 09/16/18 06:44 Pulse Oximetry 98 09/16/18 06:44 Temperature 37.0 C 09/16/18 06:44 Temperature Source Tympanic 09/16/18 06:44 Pulse 58 L 09/16/18 06:44 Respiratory Rate 17 09/16/18 06:51 Respiratory Effort Non-Labored 09/16/18 06:51 Respiratory Depth Normal 09/16/18 06:51 Respiratory Pattern Normal 09/16/18 06:51 Blood Pressure 129/80 09/16/18 06:44 Blood Pressure Position Supine 09/16/18 06:44 Pulse Oximetry 98 09/16/18 06:44 Oxygen Delivery Method Room Air 09/16/18 06:44 Oxygen Flow Rate 0 09/16/18 06:44 Pain Level 4 09/16/18 06:44
[2018-09-16 07:34] LABS: Abs Immature Grans 0.05 k/cumm (0.0-0.09); Absolute Basophil Count 0.04 k/cumm (0.0-0.2); Absolute Eosinophil Count 0.24 k/cumm (0.0-0.7); Absolute Lymphocyte Count 2.53 k/cumm (1.2-3.4); Absolute Neutrophil Count 6.51 k/cumm (1.2-6.7); Basophils % 0.4; Eosinophils % 2.4; HCT 40.5 % (40.0-50.0); Immature Grans % 0.5; Lymphocytes % 24.9; Mean Corp. HGB Concentration 34.6 g/dL (32.0-36.0); Mean Corpuscular Hemoglobin 31.5 pg (27.0-33.0); Mean Corpuscular Volume 91.2 fL (80-95); Mean Platelet Volume 9.5 fL (8.0-11.0); Monocytes % 7.9; Neutrophils % 63.9; Platelet Count 252 x1000/uL (130-400); RBC 4.44 m/cumm (4.50-6.00); RBC Distribution Width 13.9 % (11.8-14.1); White Blood Cell Count 10.17 k/cumm (4.4-10.8)
[2018-09-16 07:44] LABS: PTT Activated 29.4 sec (21.0-31.4)
[2018-09-16 07:45] LABS: ALT 24 U/L (12-78); AST 17 U/L (15-37); Albumin 3.4 g/dL (3.4-5.0); Alkaline Phosphatase 81 U/L (46-116); Anion Gap 10.3 mmol/L (3-11); BUN 19 mg/dL (7-18); Bilirubin, Total 0.2 mg/dL (0.2-1.0); CO2 24.7 mmol/L (21.0-32.0); CREATININE 1.13 mg/dL (0.70-1.30); Calcium 9.1 mg/dL (8.5-10.1); Chloride 103 mmol/L (98-107); Glucose 128 mg/dL (70-100); Magnesium 1.8 mg/dL (1.8-2.4); Potassium 4.1 mmol/L (3.5-5.1); Sodium 138 mmol/L (136-145); Total Protein 7.1 g/dL (6.4-8.2)
[2018-09-16 07:49] LABS: Troponin I < 0.02 ng/mL (0.00-0.06)
== END 2018-09-16 08:16 | disposition home or self-care (01) ==
PROVIDERS: Emergency Provider Emergency Medicine; PCP Internal Medicine
DX: R42 Dizziness and giddiness (principal)
CPT/HCPCS: 36415; 80053; 93005; 99284; 83735; 84484; 85025; 85610; 85730; 93010; 99283

== ENCOUNTER 2018-09-26 05:13 | Emergency (ER) | payer BC, SELFPAY ==
[2018-09-26] VITALS (15 sets, daily range): BP systolic 105–120; BP diastolic 73–82; PULSE 61–71; RESP 11–22; TEMP 36.2; O2SAT 93–98
--- NOTE | 2018-09-26 05:21 | ED.GENADUL_ITS ---
Discharge Plan Disposition Patient Disposition: HOME Condition: Stable Discharge Details Chief Complaint: Chest Pain Clinical Impression: Chest pain Primary Care Provider: Delonte Corral ED Provider: Bladimir Collazo Home Meds and New Rx's Prescriptions: Continued ascorbic acid (vitamin C) [Vitamin C] 1,000 MG tablet 1,000 mg PO DAILY RF: 0 Eliquis 5 MG tablet 5 mg PO BID 30 Days Qty: 60 RF: 4 lansoprazole [Prevacid SoluTab] 30 MG tablet,disintegrat, delay rel 30 mg PO DAILY RF: 0 nitroglycerin [Nitrostat] 0.4 MG tablet, sublingual 1 tab Sublingual Q5 MIN PRN X3 PRNRF: 0 bupropion HCl 150 MG tablet extended release 12 hr 300 mg PO DAILY RF: 0 isosorbide mononitrate 120 MG tablet extended release 24 hr 120 mg PO DAILY RF: 0 multivitamin 1 EACH capsule 1 ea PO DAILY RF: 0 Rosuvastatin Calcium 40 MG tablet 40 mg PO DAILY RF: 0 sotalol [Betapace] 80 MG tablet 80 mg PO BID RF: 0 biotin 800 mcg Tablet 1 tab PO DAILY RF: 0 clopidogrel [Plavix] 75 mg Tablet 75 mg PO DAILY RF: 0 amitriptyline 25 mg Tablet 25 mg PO HS PRNRF: 0 meclizine 25 mg tablet 25 mg PO TID PRN (Reason: Dizziness) Qty: 30 RF: 0 Discharge Instructions Additional Instructions: Your blood work showed no evidence of a heart attack. We also send screening labs to evaluate for possible blood clots that was also negative follow up with your primary care provider within a week or two If you have severe worsening of pain, worsening difficulty breathing or new symptoms such as abdominal pain return to the emergency department Medical Decision Making 52 yo male with hx of cad, afib on eliquis, prior cva, who comes in with chief complaint of chest pain and shortness of breath since yesterday.He states he took 1 nitro overnight which improved his symptoms and currently states he feels well and doesn't want any pain medications. He denies recent fevers, chills, cough, recent travel, no LE edema or jvd, speaking in full sentences on exam without evidence of respiratory distress. He las had a coronary catheterization on 07/21 showing diffuse disease and had lcx in stent restenosis and had successful pci of distal lcx. EKG unchanged, will obtain troponin. Wells score low, will send d dimer. Has no tearing back pain and normal vascular exam so doubt dissection. Normal lung sounds and no cough or fever so doubt ptx or pna pt's labs unremarkable, remains asymptomatic and pain free. Recommended second troponin but he declined and wants to be d/c'd, has capacity to make his own decisions and understands risks including and disability, he will f/u with pcp and return precautions given as well Differential Diagnosis angina, acs, nstemi, pe, dissection Lab Data Lab results reviewed: Yes I reviewed the patient's lab results. ECG Data Attestation: I personally reviewed and interpreted this ECG (s) as follows: Prior ECG tracings: available for review Interpretation: sinus rhythm, rate of 68, pr 154, qtc 392, no acute st t wave changes compared to old HPI General Mode of arrival: ambulatory . Date/Time Provider Initiated Documentation: 09/26/18 05:14 . Limitations to Documentation: no limitations . Information obtained by: patient . History of Present Illness 52 year old M presents to the emergency department with the chief complaint of chest pain, described as moderate, with intensity rated at 5. Quality is described as aching, and is localized to the chest. Patient reports no radiation. Patient started experiencing this day(s) (1) and it has been constant. No relieving factors improve symptom(s), No exacerbating factors reported . Patient notes shortness of breath. Patient did receive the following treatments prior to arrival, none Related Data Home Medications Medication Instructions Recorded Confirmed lansoprazole [Prevacid SoluTab] 30 mg PO DAILY 06/18/13 09/26/18 nitroglycerin [Nitrostat] 1 tab SUBLINGUAL Q5 MIN PRN X3 PRN 10/17/13 09/26/18 bupropion HCl 300 mg PO DAILY 10/16/15 09/26/18 isosorbide mononitrate 120 mg PO DAILY 10/16/15 09/26/18 multivitamin 1 ea PO DAILY 04/28/17 09/26/18 ascorbic acid (vitamin C) [Vitamin 1,000 mg PO DAILY 07/18/17 09/26/18 C] Eliquis 5 mg PO BID 30 Days #60 tab 02/24/18 09/26/18 Rosuvastatin Calcium 40 mg PO DAILY 05/09/18 09/26/18 sotalol [Betapace] 80 mg PO BID 05/09/18 09/26/18 biotin 1 tab PO DAILY 06/05/18 09/26/18 clopidogrel [Plavix] 75 mg PO DAILY 07/24/18 09/26/18 amitriptyline 25 mg PO HS PRN 09/07/18 09/26/18 meclizine 25 mg PO TID PRN #30 tab 09/16/18 09/26/18 Previous Rx's Medication Instructions Recorded Eliquis 5 mg PO BID 30 Days #60 tab 02/24/18 meclizine 25 mg PO TID PRN #30 tab 09/16/18 Allergies Allergy/AdvReac Type Severity Reaction Status Date / Time atorvastatin calcium AdvReac Intermediate liver Unverified 09/26/18 05:21 [From Lipitor] problems niacin AdvReac Mild flushing Unverified 09/26/18 05:21 adhesive from monitor tabs Allergy Intermediate jones Uncoded 09/26/18 05:21 General MARQUIS: 2 Review of Systems Review of Systems All systems reviewed & are unremarkable except as noted in HPI and below Constitutional Denies chills, Denies fever(s) and Denies weakness ENT Denies change in voice Gastrointestinal Denies abdominal pain and Denies vomiting Genitourinary Denies dysuria Musculoskeletal Denies joint swelling Integumentary/Breasts Denies rash Neurologic Denies weakness [facility] Social History Smoking/Tobacco Use Status: Current every day alcohol intake: never substance use type: does not use
[2018-09-26 05:32] LABS: Abs Immature Grans 0.02 k/cumm (0.0-0.09); Absolute Basophil Count 0.05 k/cumm (0.0-0.2); Absolute Eosinophil Count 0.25 k/cumm (0.0-0.7); Absolute Lymphocyte Count 2.84 k/cumm (1.2-3.4); Absolute Monocyte Count 0.93 k/cumm (0.11-0.7); Absolute Neutrophil Count 6.61 k/cumm (1.2-6.7); Basophils % 0.5; Eosinophils % 2.3; HGB 15.4 g/dL (13.5-17.5); Immature Grans % 0.2; Lymphocytes % 26.5; Mean Corp. HGB Concentration 34.2 g/dL (32.0-36.0); Mean Corpuscular Volume 90.7 fL (80-95); Mean Platelet Volume 9.8 fL (8.0-11.0); Monocytes % 8.7; Neutrophils % 61.8; Platelet Count 267 x1000/uL (130-400); RBC 4.96 m/cumm (4.50-6.00); RBC Distribution Width 14.1 % (11.8-14.1)
[2018-09-26] MEDS: Normal Saline Flush 10 ML SYR IVP (05:43)
[2018-09-26 05:51] LABS: ALT 24 U/L (12-78); AST 15 U/L (15-37); Albumin 3.4 g/dL (3.4-5.0); Alkaline Phosphatase 82 U/L (46-116); Anion Gap 10.2 mmol/L (3-11); BUN 18 mg/dL (7-18); Bilirubin, Total 0.2 mg/dL (0.2-1.0); CO2 24.8 mmol/L (21.0-32.0); CREATININE 1.06 mg/dL (0.70-1.30); Calcium 8.9 mg/dL (8.5-10.1); Chloride 105 mmol/L (98-107); Glucose 128 mg/dL (70-100); NT-proBNP 216 pg/mL; PTT Activated 28.8 sec (21.0-31.4); Potassium 4.2 mmol/L (3.5-5.1); Prothrombin Time 9.6 sec (9.3-11.0); Sodium 140 mmol/L (136-145); Total Protein 7.3 g/dL (6.4-8.2)
[2018-09-26 05:52] LABS: Troponin I < 0.02 ng/mL (0.00-0.06)
[2018-09-26 06:23] LABS: D-Dimer 369 ng/mlFEU (<500)
== END 2018-09-26 06:30 | disposition home or self-care (01) ==
PROVIDERS: Emergency Provider Emergency Medicine; PCP Internal Medicine
DX: R07.9 Chest pain, unspecified (principal); I48.91 Unspecified atrial fibrillation; Z79.01 Long term (current) use of anticoagulants; I25.10 Atherosclerotic heart disease of native coronary artery without angina pectoris
CPT/HCPCS: 36415; 80053; 93005; 99284; 83880; 84484; 85025; 85379; 85610; 85730; 93010; J3490

== ENCOUNTER 2018-10-06 19:25 | Emergency (ER) | payer BC, SELFPAY ==
[2018-10-06] VITALS (35 sets, daily range): BP systolic 89–118; BP diastolic 53–86; PULSE 58–155; RESP 11–22; TEMP 36.1; O2SAT 88–97
[2018-10-06 19:44] LABS: Abs Immature Grans 0.02 k/cumm (0.0-0.09); Absolute Basophil Count 0.03 k/cumm (0.0-0.2); Absolute Lymphocyte Count 3.11 k/cumm (1.2-3.4); Absolute Monocyte Count 1.35 k/cumm (0.11-0.7); Basophils % 0.2; Eosinophils % 1.7; HCT 40.9 % (40.0-50.0); HGB 14.3 g/dL (13.5-17.5); Immature Grans % 0.2; Lymphocytes % 23.5; Mean Corpuscular Hemoglobin 31.6 pg (27.0-33.0); Mean Corpuscular Volume 90.3 fL (80-95); Mean Platelet Volume 9.4 fL (8.0-11.0); Monocytes % 10.2; Neutrophils % 64.2; Platelet Count 242 x1000/uL (130-400); RBC 4.53 m/cumm (4.50-6.00); RBC Distribution Width 13.8 % (11.8-14.1); White Blood Cell Count 13.24 k/cumm (4.4-10.8)
[2018-10-06 19:47] LABS: Absolute Eosinophil Count 0.23 k/cumm (0.0-0.7)
--- NOTE | 2018-10-06 19:50 | ED.GENADUL_ITS ---
Discharge Plan Disposition Patient Disposition: HOME Condition: Stable Discharge Details Chief Complaint: Chest Pain Clinical Impression: Atrial fibrillation Primary Care Provider: Delonte Corral ED Provider: Bladimir Collazo Home Meds and New Rx's Prescriptions: New diltiazem HCl 120 mg capsule,extended release 24hr 120 mg PO DAILY Qty: 60 RF: 0 Continued hydrocodone-acetaminophen 5-325 mg tablet 1 tab PO Q6H RF: 0 ascorbic acid (vitamin C) [Vitamin C] 1,000 MG tablet 1,000 mg PO DAILY RF: 0 Eliquis 5 MG tablet 5 mg PO BID 30 Days Qty: 60 RF: 4 lansoprazole [Prevacid SoluTab] 30 MG tablet,disintegrat, delay rel 30 mg PO DAILY RF: 0 nitroglycerin [Nitrostat] 0.4 MG tablet, sublingual 1 tab Sublingual Q5 MIN PRN X3 PRNRF: 0 bupropion HCl 150 MG tablet extended release 12 hr 300 mg PO DAILY RF: 0 isosorbide mononitrate 120 MG tablet extended release 24 hr 120 mg PO DAILY RF: 0 multivitamin 1 EACH capsule 1 ea PO DAILY RF: 0 magnesium 250 mg Tablet 250 mg PO DAILY RF: 0 Rosuvastatin Calcium 40 MG tablet 40 mg PO DAILY RF: 0 sotalol [Betapace] 80 MG tablet 80 mg PO BID RF: 0 biotin 800 mcg Tablet 1 tab PO DAILY RF: 0 clopidogrel [Plavix] 75 mg Tablet 75 mg PO DAILY RF: 0 amitriptyline 25 mg Tablet 25 mg PO HS PRNRF: 0 Discharge Instructions Instructions: Atrial Fibrillation (ED) Medical Decision Making 53 yo male with hx of cad, afib on eliquis, who comes in with chief complaint of feeling his heart racing and chest discomfort starting an hour ago while watching television. No diaphoresis or n/v. He is resting comfortably on exam and is in afib with rvr with no acute st t wave changes compared to old ekg, will treat with lisbeth blockers and monitor and send troponin. No hypoxia or evidence of dvt so doubt PE and has normal vascular exam without tearing back pain so doubt dissection pt's HR now in the 90's so oral dilt given, remains HD stable. Pain is now gone and is sleeping on reexam. Given HR is controlled and labs are unremarkable, will obtain delta troponin and monitor, if negative and remains rate controlled will d/c pt remains asymptomatic, fell asleep again, afib with rates in the 90's still. second troponin negative. Will prescribe him cardizem outpatient to try and control his heart rate and advised f/u with cardiology and return precautions given Differential Diagnosis afib with rvr, nstemi Lab Data Lab results reviewed: Yes I reviewed the patient's lab results. ECG Data Attestation: I personally reviewed and interpreted this ECG (s) as follows: Prior ECG tracings: available for review Interpretation: afib with rate of 138, qtc 464, no acute st t wave changes HPI General Mode of arrival: ambulatory . Date/Time Provider Initiated Documentation: 10/06/18 19:27 . Limitations to Documentation: no limitations . Information obtained by: patient . History of Present Illness 53 year old M presents to the emergency department with the chief complaint of chest pain and high heart rate, described as moderate, with intensity rated at 4. Quality is described as aching, and is localized to the chest. Patient reports no radiation. Patient started experiencing this hour(s) (1) and it has been constant. No relieving factors improve symptom(s), No exacerbating factors reported . Patient notes no other symptoms.. Patient did receive the follow ing treatments prior to arrival, none Related Data Home Medications Medication Instructions Recorded Confirmed lansoprazole [Prevacid SoluTab] 30 mg PO DAILY 06/18/13 10/06/18 nitroglycerin [Nitrostat] 1 tab SUBLINGUAL Q5 MIN PRN X3 PRN 10/17/13 10/06/18 bupropion HCl 300 mg PO DAILY 10/16/15 10/06/18 isosorbide mononitrate 120 mg PO DAILY 10/16/15 10/06/18 multivitamin 1 ea PO DAILY 04/28/17 10/06/18 ascorbic acid (vitamin C) [Vitamin 1,000 mg PO DAILY 07/18/17 10/06/18 C] Eliquis 5 mg PO BID 30 Days #60 tab 02/24/18 10/06/18 Rosuvastatin Calcium 40 mg PO DAILY 05/09/18 10/06/18 sotalol [Betapace] 80 mg PO BID 05/09/18 10/06/18 biotin 1 tab PO DAILY 06/05/18 10/06/18 clopidogrel [Plavix] 75 mg PO DAILY 07/24/18 10/06/18 amitriptyline 25 mg PO HS PRN 09/07/18 10/06/18 hydrocodone 5 mg-acetaminophen 325 1 tab PO Q6H 10/02/18 10/06/18 mg tablet diltiazem HCl 120 mg PO DAILY #60 cap 10/06/18 magnesium 250 mg PO DAILY 10/06/18 10/06/18 Previous Rx's Medication Instructions Recorded Eliquis 5 mg PO BID 30 Days #60 tab 02/24/18 diltiazem HCl 120 mg PO DAILY #60 cap 10/06/18 Allergies Allergy/AdvReac Type Severity Reaction Status Date / Time atorvastatin calcium AdvReac Intermediate liver Unverified 10/06/18 19:33 [From Lipitor] problems niacin AdvReac Mild flushing Unverified 10/06/18 19:33 adhesive from monitor tabs Allergy Intermediate jones Uncoded 10/06/18 19:33 General Stated Complaint: Chest Pain MARQUIS: 2 Review of Systems Review of Systems All systems reviewed & are unremarkable except as noted in HPI and below Constitutional Denies chills, Denies fever(s) and Denies weakness Eyes Denies loss of vision ENT Denies change in voice Cardiovascular Denies dyspnea Respiratory Denies dyspnea Gastrointestinal Denies abdominal pain, Denies nausea and Denies vomiting Genitourinary Denies dysuria Musculoskeletal Denies joint swelling Integumentary/Breasts Denies rash Neurologic Denies loss of vision and Denies weakness PFSH Medical History Atrial fibrillation (Chronic) Diverticulosis (Acute) Duodenal ulcer (Acute) Lipoma of back (Acute) Occipital headache (Acute) Anemia Back pain, chronic Chest pain Coronary artery disease Depression with anxiety Dysesthesia Dyslipidemia Dyspepsia Esophagitis Gastritis Hemiplegia History of kidney cancer Hx of adenomatous polyp of colon Ischemic stroke Pulmonary nodules Sleep apnea Tobacco use Surgical History Hx of esophagogastroduodenoscopy (Chronic ~05/2018) Colonoscopy - MAC (08/03/17) EGD - MAC (08/03/17) Partial Nephrectomy Repair of inguinal hernia cardiac cath Social History Smoking/Tobacco Use Status: Current every day alcohol intake: never substance use type: does not use Exam Const General: no acute distress Orientation: alert HENMT Head: normal to inspection Ears: external ears normal General nose exam: external nose normal Mouth: moist mucous membranes Eyes General: appearance normal, both eyes and all related structures Neck Neck: normal visual inspection Resp Effort & Inspection: normal respiratory effort and able to speak in complete sentences Cardio Rate: tachycardic Rhythm: abnormal rhythm Skin General skin exam: no rashes or lesions noted Neuro General: alert and oriented x3 Extrem General: normal to inspection Psych Mental Status: mental status grossly normal Course Vital Signs Temperature 36.1 C L 10/06/18 19:29 Pulse 135 H 10/06/18 19:29 Respiratory Rate 18 10/06/18 19:29 Blood Pressure 118/78 10/06/18 19:29 Pulse Oximetry 96 10/06/18 19:29 Temperature 36.1 C L 10/06/18 19:29 Temperature Source Skin 10/06/18 19:29 Pulse 135 H 10/06/18 19:29 Respiratory Rate 18 10/06/18 19:29 Blood Pressure 118/78 10/06/18 19:29 Pulse Oximetry 96 10/06/18 19:29 Oxygen Delivery Method Room Air 10/06/18 19:29 Oxygen Flow Rate 0 10/06/18 19:29 Pain Level 8 10/06/18 19:29 Lab/Test Results Lab/Test Results: Laboratory Tests Range/Units 10/06/18 19:33 APTT Cancelled Critical Care Time Critical Care Time: Yes Total Critical Care Time: 45 Attestation: time spent reviewing ekg, lab review, and HD monitoring in a patient with atrial fibrillation with rapid ventricular response requiring IV lisbeth blockers and potential to deteriorate at any time
[2018-10-06 19:59] LABS: PTT Activated 29.4 sec (21.0-31.4); Prothrombin Time 10.4 sec (9.3-11.0)
[2018-10-06 20:12] LABS: ALT 23 U/L (12-78); AST 23 U/L (15-37); Albumin 3.6 g/dL (3.4-5.0); Alkaline Phosphatase 78 U/L (46-116); Anion Gap 10.9 mmol/L (3-11); BUN 18 mg/dL (7-18); Bilirubin, Total 0.4 mg/dL (0.2-1.0); CO2 26.1 mmol/L (21.0-32.0); CREATININE 1.21 mg/dL (0.70-1.30); Calcium 9.3 mg/dL (8.5-10.1); Chloride 104 mmol/L (98-107); Glucose 88 mg/dL (70-100); Potassium 3.4 mmol/L (3.5-5.1); Sodium 141 mmol/L (136-145); Total Protein 7.5 g/dL (6.4-8.2)
[2018-10-06 20:19] LABS: Troponin I < 0.02 ng/mL (0.00-0.06)
--- NOTE | 2018-10-06 20:52 | NUR.NOTE ---
patient sleeping in room, will continue to monitor Nursing Note:
[2018-10-06 22:19] LABS: Troponin I < 0.02 ng/mL (0.00-0.06)
== END 2018-10-06 22:30 | disposition home or self-care (01) ==
PROVIDERS: Emergency Provider Emergency Medicine; PCP Internal Medicine
DX: I48.91 Unspecified atrial fibrillation (principal); I47.2 Ventricular tachycardia; Z79.01 Long term (current) use of anticoagulants; I25.10 Atherosclerotic heart disease of native coronary artery without angina pectoris; Z95.5 Presence of coronary angioplasty implant and graft
CPT/HCPCS: 36415; 80053; 93005; 96374; 99291; 83735; 84484; 85025; 85610; 85730; 93010

== ENCOUNTER 2018-10-26 06:14 | Emergency (ER) | payer BC, SELFPAY ==
[2018-10-26] VITALS (37 sets, daily range): BP systolic 105–130; BP diastolic 69–81; PULSE 55–71; RESP 11–24; TEMP 36.8; O2SAT 93–97
--- NOTE | 2018-10-26 06:45 | ED.GENADUL_ITS ---
Discharge Plan Disposition Patient Disposition: HOME Discharge Details Chief Complaint: Chest Pain Clinical Impression: Chest pain Primary Care Provider: Delonte Corral ED Provider: Vinh Barton Home Meds and New Rx's Prescriptions: Continued hydrocodone-acetaminophen 5-325 mg tablet 1 tab PO Q6H RF: 0 ascorbic acid (vitamin C) [Vitamin C] 1,000 MG tablet 1,000 mg PO DAILY RF: 0 Eliquis 5 MG tablet 5 mg PO BID 30 Days Qty: 60 RF: 4 lansoprazole [Prevacid SoluTab] 30 MG tablet,disintegrat, delay rel 30 mg PO DAILY RF: 0 nitroglycerin [Nitrostat] 0.4 MG tablet, sublingual 1 tab Sublingual Q5 MIN PRN X3 PRNRF: 0 bupropion HCl 150 MG tablet extended release 12 hr 300 mg PO DAILY RF: 0 isosorbide mononitrate 120 MG tablet extended release 24 hr 120 mg PO DAILY RF: 0 multivitamin 1 EACH capsule 1 ea PO DAILY RF: 0 magnesium 250 mg Tablet 250 mg PO DAILY RF: 0 diltiazem HCl 120 mg capsule,extended release 24hr 120 mg PO DAILY Qty: 60 RF: 0 Rosuvastatin Calcium 40 MG tablet 40 mg PO DAILY RF: 0 sotalol [Betapace] 80 MG tablet 80 mg PO BID RF: 0 biotin 800 mcg Tablet 1 tab PO DAILY RF: 0 clopidogrel [Plavix] 75 mg Tablet 75 mg PO DAILY RF: 0 amitriptyline 25 mg Tablet 25 mg PO HS PRNRF: 0 Discharge Instructions Instructions: Chest Pain (ED) Additional Instructions: Please follow-up with your primary care physician and 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 Return to the ER for any worsening or new concerning symptoms. Referrals: Delonte Corral MD [Primary Care Provider] - Discharge Data Discharge Date/Time-TO BE ENTERED AT DEPARTURE: 10/26/18 11:02 Medical Decision Making <José Swann MD - Last Filed: 10/27/18 22:16> Patient here with nonradiating chest pain. Frequent visits for same. Typically workups are negative but he does have a history of cardiac disease. EKG is sinus rhythm at [address] changes. Nitro at home did not help. Will be given a GI cocktail here as he also has history of dyspepsia. Will get laboratory workup including a second troponin at 10:00 which will be 8 hours after onset of pain. First troponin is negative. Other labs are unremarkable. Patient will be signed over to Dr. Barton who will follow up on second troponin and disposition patient appropriately. Lab Data Lab results reviewed: Yes I reviewed the patient's lab results. ECG Data Attestation: I personally reviewed and interpreted this ECG (s) as follows: Prior ECG tracings: not available for review Interpretation: Normal sinus rhythm at 70. Normal axis and intervals but inc omplete right bundle branch pattern noted. No acute ST changes noted. HPI <José Swann MD - Last Filed: 10/27/18 22:16> General Mode of arrival: ambulatory . Date/Time Provider Initiated Documentation: 10/26/18 06:44 . Limitations to Documentation: no limitations . Information obtained by: patient . HPI Narrative: Patient presents to ED this morning with complaints of chest pain. Patient reports not feeling well yesterday with fatigue. Woke up this morning at 2 AM with chest pain. It is nonradiating. It did not respond to nitroglycerin. It has not gone away. He felt a little short of breath but not currently. He denies fever or cough. He denies abdominal pain or back pain. Has a previous history of coronary artery disease status post stenting as well as ischemic stroke. He typically presents in the mornings with complaints of chest pain. Typically his workup is unremarkable but because of his prior history evaluation must be undertaken. Related Data Home Medications Medication Instructions Recorded Confirmed lansoprazole [Prevacid SoluTab] 30 mg PO DAILY 06/18/13 10/26/18 nitroglycerin [Nitrostat] 1 tab SUBLINGUAL Q5 MIN PRN X3 PRN 10/17/13 10/26/18 bupropion HCl 300 mg PO DAILY 10/16/15 10/26/18 isosorbide mononitrate 120 mg PO DAILY 10/16/15 10/26/18 multivitamin 1 ea PO DAILY 04/28/17 10/26/18 ascorbic acid (vitamin C) [Vitamin 1,000 mg PO DAILY 07/18/17 10/26/18 C] Eliquis 5 mg PO BID 30 Days #60 tab 02/24/18 10/26/18 Rosuvastatin Calcium 40 mg PO DAILY 05/09/18 10/26/18 sotalol [Betapace] 80 mg PO BID 05/09/18 10/26/18 biotin 1 tab PO DAILY 06/05/18 10/26/18 clopidogrel [Plavix] 75 mg PO DAILY 07/24/18 10/26/18 amitriptyline 25 mg PO HS PRN 09/07/18 10/26/18 hydrocodone 5 mg-acetaminophen 325 1 tab PO Q6H 10/02/18 10/26/18 mg tablet diltiazem HCl 120 mg PO DAILY #60 cap 10/06/18 10/26/18 magnesium 250 mg PO DAILY 10/06/18 10/26/18 Previous Rx's Medication Instructions Recorded Eliquis 5 mg PO BID 30 Days #60 tab 02/24/18 diltiazem HCl 120 mg PO DAILY #60 cap 10/06/18 Allergies Allergy/AdvReac Type Severity Reaction Status Date / Time atorvastatin calcium AdvReac Intermediate liver Unverified 11/03/18 06:11 [From Lipitor] problems niacin AdvReac Mild flushing Unverified 11/03/18 06:11 adhesive from monitor tabs Allergy Intermediate jones Uncoded 11/03/18 06:11 General Stated Complaint: Chest Pain MARQUIS: 2 Review of Systems <José Swann MD - Last Filed: 10/27/18 22:16> Constitutional Denies chills, Reports fatigue, Denies fever(s), Denies headache(s), Reports malaise, Denies poor appetite and Denies weakness Eyes Denies eye discharge ENT Denies headache(s), Denies nasal congestion, Denies neck pain, Denies sinus pressure and Denies sore throat Cardiovascular Reports chest pain, Denies diaphoresis, Denies syncope, Denies leg edema, Denies radiating jaw, neck or arm pain and Reports dyspnea (resolved) Respiratory Denies cough and Reports dyspnea (resolved) Gastrointestinal Denies abdominal pain, Denies diarrhea, Denies nausea and Denies vomiting Genitourinary Denies hematuria, Denies dysuria and Denies flank pain Musculoskeletal Denies back pain, Denies neck pain and Denies numbness Integumentary/Breasts Denies rash Neurologic Denies syncope, Denies headache(s), Denies numbness and Denies weakness Endocrine Reports fatigue PFSH <José Swann MD - Last Filed: 10/27/18 22:16> Medical History Atrial fibrillation (Chronic) Anemia (Chronic) Back pain, chronic (Chronic) Chest pain (Chronic) Coronary artery disease (Chronic) Depression with anxiety (Chronic) Diverticulosis (Chronic) Duodenal ulcer (Chronic) Dysesthesia (Chronic) Dyslipidemia (Chronic) Dyspepsia (Chronic) Esophagitis (Chronic) Gastritis (Chronic) Hemiplegia (Chronic) History of kidney cancer (Chronic) Hx of adenomatous polyp of colon (Chronic) Ischemic stroke (Chronic) Lipoma of back (Chronic) Occipital headache (Chronic) Pulmonary nodules (Chronic) Sleep apnea (Chronic) Tobacco use (Chronic) Surgical History Colonoscopy - MAC (Inactive 08/03/17) EGD - MAC (Inactive 08/03/17) Partial Nephrectomy (Inactive) Repair of inguinal hernia (Inactive) cardiac cath (Inactive) Social History Smoking and Tabacco status: Current every day alcohol intake: never substance use type: does not use Exam <José Swann MD - Last Filed: 10/27/18 22:16> Const General: cooperative, comfortable and no acute distress Orientation: alert and oriented x3 HENMT Head: normocephalic and atraumatic Neck Neck: trachea midline and supple Chest Chest: normal inspection of the chest Resp Effort & Inspection: normal respiratory effort Auscultation: clear to auscultation bilaterally Cardio Rate: regular rate Rhythm: regular rhythm Heart Sounds: S1 normal and S2 normal Pulses: radial pulses present GI Palpation: soft and nontender Skin General skin exam: no rashes or lesions noted Neuro General: alert, oriented x3, gait normal, no focal motor deficits and CN's II-XI intact bilaterally Extrem General: no clubbing, cyanosis or edema and no calf tenderness Course <José Swann MD - Last Filed: 10/27/18 22:16> Vital Signs Temperature 98.2 F 10/26/18 06:30 Pulse 71 10/26/18 06:30 Respiratory Rate 17 10/26/18 06:30 Blood Pressure 130/73 10/26/18 06:30 Pulse Oximetry 97 10/26/18 06:30 Temperature 98.2 F 10/26/18 06:30 Temperature Source Temporal Artery Scan 10/26/18 06:30 Pulse 71 10/26/18 06:30 Respiratory Rate 18 10/26/18 06:34 Respiratory Effort Non-Labored 10/26/18 06:34 Respiratory Depth Normal 10/26/18 06:34 Respiratory Pattern Normal 10/26/18 06:34 Blood Pressure 130/73 10/26/18 06:30 Blood Pressure Position Sitting 10/26/18 06:30 Pulse Oximetry 97 10/26/18 06:30 Oxygen Delivery Method Room Air 10/26/18 06:30 Oxygen Flow Rate 0 10/26/18 06:30 Pain Level 8 10/26/18 06:30 Sign Out <José Swann MD - Last Filed: 10/27/18 22:16> Sign Out Data: Sign Out Comment: Signed out to Dr Barton pending 2nd troponin Last updated by José Swann MD at 10/26/18 08:22 Post-Handoff Eval: Plan at sign out was to follow-up on second troponin and if negative discharge with plan for patient to follow-up with his primary care physician. Second troponin was negative. Patient is remained stable here in the emergency department. Disposition decision was made weighing the risks and benefits of hospitalization versus outpatient treatment, the risk for further decompensation, and the patient's wishes. The patient was stable and requested discharge. Prior to discharge, my usual and customary return precautions were reviewed with the patient - this included follow-up instructions and reason to return to the emergency department if condition worsens, does not improve as expected, or other new concerns arise.
[2018-10-26 06:56] LABS: Abs Immature Grans 0.02 k/cumm (0.0-0.09); Absolute Basophil Count 0.04 k/cumm (0.0-0.2); Absolute Eosinophil Count 0.19 k/cumm (0.0-0.7); Absolute Lymphocyte Count 2.03 k/cumm (1.2-3.4); Absolute Monocyte Count 0.56 k/cumm (0.11-0.7); Absolute Neutrophil Count 6.39 k/cumm (1.2-6.7); Basophils % 0.4; Eosinophils % 2.1; HCT 42.2 % (40.0-50.0); HGB 14.5 g/dL (13.5-17.5); Immature Grans % 0.2; Mean Corp. HGB Concentration 34.4 g/dL (32.0-36.0); Mean Corpuscular Hemoglobin 31.3 pg (27.0-33.0); Mean Corpuscular Volume 91.1 fL (80-95); Mean Platelet Volume 9.7 fL (8.0-11.0); Monocytes % 6.1; Neutrophils % 69.2; Platelet Count 292 x1000/uL (130-400); RBC 4.63 m/cumm (4.50-6.00); RBC Distribution Width 13.8 % (11.8-14.1); White Blood Cell Count 9.23 k/cumm (4.4-10.8)
[2018-10-26 07:11] LABS: ALT 25 U/L (12-78); AST 18 U/L (15-37); Albumin 3.4 g/dL (3.4-5.0); Alkaline Phosphatase 81 U/L (46-116); Anion Gap 10.4 mmol/L (3-11); BUN 17 mg/dL (7-18); Bilirubin, Total 0.2 mg/dL (0.2-1.0); CO2 24.6 mmol/L (21.0-32.0); CREATININE 1.17 mg/dL (0.70-1.30); Calcium 9.1 mg/dL (8.5-10.1); Chloride 101 mmol/L (98-107); Glucose 155 mg/dL (70-100); Magnesium 1.7 mg/dL (1.8-2.4); Sodium 136 mmol/L (136-145); Total Protein 7.3 g/dL (6.4-8.2)
[2018-10-26 07:18] LABS: Troponin I < 0.02 ng/mL (0.00-0.06)
[2018-10-26 10:20] LABS: Troponin I < 0.02 ng/mL (0.00-0.06)
[2018-10-26] MEDS: Magnesium Oxide 400 MG TAB PO (10:34)
== END 2018-10-26 11:02 | disposition home or self-care (01) ==
PROVIDERS: Emergency Medicine; Emergency Provider Student in an Organized Health Care Education/Training Program; PCP Internal Medicine
DX: R07.9 Chest pain, unspecified (principal)
CPT/HCPCS: 36415; 80053; 99285; 83735; 84484; 85025

== ENCOUNTER 2018-11-03 06:05 | Emergency (ER) | payer BC, SELFPAY ==
[2018-11-03 06:08] VITALS: BP 132/87; PULSE 60; RESP 16; TEMP 36.6; O2SAT 99
[2018-11-03] MEDS: Tetracaine 0.5% 4 ML BTL (06:13)
[2018-11-03] MEDS: Fluorescein STRIPS 100/BOX 1 MG (06:14)
--- NOTE | 2018-11-03 06:32 | W.ED.GENAD ---
Discharge Plan Disposition Patient Disposition: HOME Condition: Stable Discharge Details Chief Complaint: EyeProblem Clinical Impression: Corneal abrasion, Foreign body in eye Primary Care Provider: Delonte Corral ED Provider: Beata Monroe Home Meds and New Rx's Prescriptions: No Action hydrocodone-acetaminophen 5-325 mg tablet 1 tab PO Q6H RF: 0 ascorbic acid (vitamin C) [Vitamin C] 1,000 MG tablet 1,000 mg PO DAILY RF: 0 Eliquis 5 MG tablet 5 mg PO BID 30 Days Qty: 60 RF: 4 lansoprazole [Prevacid SoluTab] 30 MG tablet,disintegrat, delay rel 30 mg PO DAILY RF: 0 nitroglycerin [Nitrostat] 0.4 MG tablet, sublingual 1 tab Sublingual Q5 MIN PRN X3 PRNRF: 0 bupropion HCl 150 MG tablet extended release 12 hr 300 mg PO DAILY RF: 0 isosorbide mononitrate 120 MG tablet extended release 24 hr 120 mg PO DAILY RF: 0 multivitamin 1 EACH capsule 1 ea PO DAILY RF: 0 magnesium 250 mg Tablet 250 mg PO DAILY RF: 0 diltiazem HCl 120 mg capsule,extended release 24hr 120 mg PO DAILY Qty: 60 RF: 0 Rosuvastatin Calcium 40 MG tablet 40 mg PO DAILY RF: 0 sotalol [Betapace] 80 MG tablet 80 mg PO BID RF: 0 biotin 800 mcg Tablet 1 tab PO DAILY RF: 0 clopidogrel [Plavix] 75 mg Tablet 75 mg PO DAILY RF: 0 amitriptyline 25 mg Tablet 25 mg PO HS PRNRF: 0 Discharge Instructions Instructions: Corneal Abrasion (ED), Eye Foreign Body (ED) Additional Instructions: Apply 2 drops of sulfacetamide antibiotic solution in your right eye 4 times daily for the next 5 days. You will receive a call from [facility] ED regarding a follow up appointment with [facility] eye care in [facility] today. Return immediately to the emergency department with any worsening or new concerning symptoms. Discharge Data Discharge Date/Time-TO BE ENTERED AT DEPARTURE: 11/03/18 06:50 Discharge Physician: Beata Monroe Medical Decision Making 53-year-old male who presents with right eye irritation and foreign body sensation since yesterday after walking past his friend's garage in which he thought he got something into his eye. Tetanus up-to-date 2016. He does not wear glasses or contacts. He denies any blurry vision or eye discharge. Visual acuity 20/40 right eye, left eye, and bilaterally. Fluorescein staining noted a questionable 1 mm fluorescein uptake at 8 o'clock. Upon review of slit-lamp exam, it appeared there was possibly a white clear foreign body noted in the same location. Unsure if this area was a location of a previous foreign body that has since fallen out and there is a corneal abrasion now remaining. I used an 18-gauge needle to scrape the area after tetracaine and fluorescein and it appeared that the clear to white area was removed so it is possible this may have been a foreign body. Patient states he thinks it may have been a piece of salt so this may have been a possible foreign body. Patient given sulfacetamide eyedrops, 2 drops placed in right eye in room. Discussed with Dr. Smith from [facility] this morning. Arranged for patient to follow-up with them at 8 AM this morning for reevaluation. Patient was informed of this and will plan to go there at 8 AM. He is instructed return here with any concerns. HPI General Mode of arrival: ambulatory. Date/Time Provider Initiated Documentation: 11/03/18 06:30. Limitations to Documentation: no limitations. Information obtained by: patient. HPI Narrative: Patient is a 53-year-old male presents with right eye irritation and sensation of foreign body since yesterday. Patient states he was walking nearby his friend's garage when he felt something get into his right eye. He states he was not wearing glasses or goggles. Patient states he does not wear contacts. He denies any eye discharge, significant eye pain, or blurry vision. He states his tetanus is up-to-date. Related Data Home Medications Medication Instructions Recorded Confirmed lansoprazole [Prevacid SoluTab] 30 mg PO DAILY 06/18/13 10/26/18 nitroglycerin [Nitrostat] 1 tab SUBLINGUAL Q5 MIN PRN X3 PRN 10/17/13 10/26/18 bupropion HCl 300 mg PO DAILY 10/16/15 10/26/18 isosorbide mononitrate 120 mg PO DAILY 10/16/15 10/26/18 multivitamin 1 ea PO DAILY 04/28/17 10/26/18 ascorbic acid (vitamin C) [Vitamin 1,000 mg PO DAILY 07/18/17 10/26/18 C] Eliquis 5 mg PO BID 30 Days #60 tab 02/24/18 10/26/18 Rosuvastatin Calcium 40 mg PO DAILY 05/09/18 10/26/18 sotalol [Betapace] 80 mg PO BID 05/09/18 10/26/18 biotin 1 tab PO DAILY 06/05/18 10/26/18 clopidogrel [Plavix] 75 mg PO DAILY 07/24/18 10/26/18 amitriptyline 25 mg PO HS PRN 09/07/18 10/26/18 hydrocodone 5 mg-acetaminophen 325 1 tab PO Q6H 10/02/18 10/26/18 mg tablet diltiazem HCl 120 mg PO DAILY #60 cap 10/06/18 10/26/18 magnesium 250 mg PO DAILY 10/06/18 10/26/18 Previous Rx's Medication Instructions Recorded Eliquis 5 mg PO BID 30 Days #60 tab 02/24/18 diltiazem HCl 120 mg PO DAILY #60 cap 10/06/18 Allergies Allergy/AdvReac Type Severity Reaction Status Date / Time atorvastatin calcium AdvReac Intermediate liver Unverified 11/03/18 06:11 [From Lipitor] problems niacin AdvReac Mild flushing Unverified 11/03/18 06:11 adhesive from monitor tabs Allergy Intermediate jones Uncoded 11/03/18 06:11 General Stated Complaint: EyeProblem MARQUIS: 4 Review of Systems Review of Systems All systems reviewed & are unremarkable except as noted in HPI and below Constitutional Reports as per HPI, Denies chills and Denies fever(s) Eyes Reports blurry vision, Denies diplopia, Denies eye discharge, Reports irritation and Denies photophobia ENT Denies dizziness, Denies sore throat and Denies throat swelling Cardiovascular Denies chest pain and Denies dyspnea Respiratory Denies cough and Denies dyspnea Gastrointestinal Denies abdominal pain, Denies diarrhea and Denies vomiting Genitourinary Denies hematuria and Denies dysuria Musculoskeletal Denies back pain and Denies numbness Integumentary/Breasts Denies lesions and Denies rash Neurologic Denies dizziness, Denies focal weakness and Denies numbness Allergic/Immunologic Denies throat swelling [facility] Social History Smoking and Tabacco status: Current every day alcohol intake: never substance use type: does not use Exam Const General: cooperative, healthy appearing and no acute distress HENMT Head: normal to inspection Face and sinus: normal facial exam Eyes General: appearance normal, both eyes and all related structures Periorbital: periorbital findings normal Eyelids: eyelids normal Pupils: PERRL EOM: EOM intact bilaterally Eyes/upper lids images: 1. Questionable 1 mm white/clear foreign body. Neck Neck: normal visual inspection Resp Effort & Inspection: normal respiratory effort and able to speak in complete sentences Cardio Rate: regular rate Skin General skin exam: no rashes or lesions noted Neuro General: alert, awake and oriented x3 Cognition: normal cognition Speech: speech normal Motor: muscle tone normal throughout Sensory Exam: no sensory deficits noted Extrem General: normal to inspection and full ROM Psych Appearance: grossly normal Mental Status: mental status grossly normal Speech and Movement: speech and movement normal Affect: normal affect Course Vital Signs Temperature 98 F 11/03/18 06:08 Pulse 60 11/03/18 06:08 Respiratory Rate 16 11/03/18 06:08 Blood Pressure 132/87 11/03/18 06:08 Pulse Oximetry 99 11/03/18 06:08 Temperature 98 F 11/03/18 06:08 Temperature Source Skin 11/03/18 06:08 Pulse 60 11/03/18 06:08 Respiratory Rate 16 11/03/18 06:08 Respiratory Effort 11/03/18 06:11 Blood Pressure 132/87 11/03/18 06:08 Pulse Oximetry 99 11/03/18 06:08 Oxygen Delivery Method Room Air 11/03/18 06:08 Oxygen Flow Rate 0 11/03/18 06:08 Pain Level 7 11/03/18 06:08
[2018-11-03] MEDS: Balanced Salt Solution 15 ML BTL OP (06:34)
--- NOTE | 2018-11-03 06:38 | ED.GENADUL_ITS ---
Discharge Plan Disposition Patient Disposition: HOME Condition: Stable Discharge Details Chief Complaint: EyeProblem Clinical Impression: Corneal abrasion, Foreign body in eye Primary Care Provider: Delonte Corral ED Provider: Beata Monroe Home Meds and New Rx's Prescriptions: No Action hydrocodone-acetaminophen 5-325 mg tablet 1 tab PO Q6H RF: 0 ascorbic acid (vitamin C) [Vitamin C] 1,000 MG tablet 1,000 mg PO DAILY RF: 0 Eliquis 5 MG tablet 5 mg PO BID 30 Days Qty: 60 RF: 4 lansoprazole [Prevacid SoluTab] 30 MG tablet,disintegrat, delay rel 30 mg PO DAILY RF: 0 nitroglycerin [Nitrostat] 0.4 MG tablet, sublingual 1 tab Sublingual Q5 MIN PRN X3 PRNRF: 0 bupropion HCl 150 MG tablet extended release 12 hr 300 mg PO DAILY RF: 0 isosorbide mononitrate 120 MG tablet extended release 24 hr 120 mg PO DAILY RF: 0 multivitamin 1 EACH capsule 1 ea PO DAILY RF: 0 magnesium 250 mg Tablet 250 mg PO DAILY RF: 0 diltiazem HCl 120 mg capsule,extended release 24hr 120 mg PO DAILY Qty: 60 RF: 0 Rosuvastatin Calcium 40 MG tablet 40 mg PO DAILY RF: 0 sotalol [Betapace] 80 MG tablet 80 mg PO BID RF: 0 biotin 800 mcg Tablet 1 tab PO DAILY RF: 0 clopidogrel [Plavix] 75 mg Tablet 75 mg PO DAILY RF: 0 amitriptyline 25 mg Tablet 25 mg PO HS PRNRF: 0 Discharge Instructions Instructions: Corneal Abrasion (ED), Eye Foreign Body (ED) Additional Instructions: Apply 2 drops of sulfacetamide antibiotic solution in your right eye 4 times daily for the next 5 days. You will receive a call from [facility] ED regarding a follow up appointment with [facility] eye care in [facility] today. Return immediately to the emergency department with any worsening or new concerning symptoms. Discharge Data Discharge Date/Time-TO BE ENTERED AT DEPARTURE: 11/03/18 06:50 Discharge Physician: Beata Monroe Medical Decision Making 53-year-old male who presents with right eye irritation and foreign body sen sation since yesterday after walking past his friend's garage in which he thought he got something into his eye. Tetanus up-to-date 2016. He does not wear glasses or contacts. He denies any blurry vision or eye discharge. Visual acuity 20/40 right eye, left eye, and bilaterally. Fluorescein staining noted a questionable 1 mm fluorescein uptake at 8 o'clock. Upon review of slit-lamp exam, it appeared there was possibly a white clear foreign body noted in the same location. Unsure if this area was a location of a previous foreign body that has since fallen out and there is a corneal abras ion now remaining. I used an 18-gauge needle to scrape the area after tetracaine and fluorescein and it appeared that the clear to white area was removed so it is possible this may have been a foreign body. Patient states he thinks it may have been a piece of salt so this may have been a possible foreign body. Patient given sulfacetamide eyedrops, 2 drops placed in right eye in room. Discussed with Dr. Smith from [facility] this morning. Arranged for patient to follow-up with them at 8 AM this morning for reevaluation. Patient was informed of this and will plan to go there at 8 AM. He is instructed return here with any concerns. HPI General Mode of arrival: ambulatory . Date/Time Provider Initiated Documentation: 11/03/18 06:30 . Limitations to Documentation: no limitations . Information obtained by: patient . HPI Narrative: Patient is a 53-year-old male presents with right eye irritation and sensation of foreign body since yesterday. Patient states he was walking nearby his friend's garage when he felt something get into his right eye. He states he was not wearing glasses or goggles. Patient states he does not wear contacts. He denies any eye discharge, significant eye pain, or blurry vision. He states his tetanus is up-to-date. Related Data Home Medications Medication Instructions Recorded Confirmed lansoprazole [Prevacid SoluTab] 30 mg PO DAILY 06/18/13 10/26/18 nitroglycerin [Nitrostat] 1 tab SUBLINGUAL Q5 MIN PRN X3 PRN 10/17/13 10/26/18 bupropion HCl 300 mg PO DAILY 10/16/15 10/26/18 isosorbide mononitrate 120 mg PO DAILY 10/16/15 10/26/18 multivitamin 1 ea PO DAILY 04/28/17 10/26/18 ascorbic acid (vitamin C) [Vitamin 1,000 mg PO DAILY 07/18/17 10/26/18 C] Eliquis 5 mg PO BID 30 Days #60 tab 02/24/18 10/26/18 Rosuvastatin Calcium 40 mg PO DAILY 05/09/18 10/26/18 sotalol [Betapace] 80 mg PO BID 05/09/18 10/26/18 biotin 1 tab PO DAILY 06/05/18 10/26/18 clopidogrel [Plavix] 75 mg PO DAILY 07/24/18 10/26/18 amitriptyline 25 mg PO HS PRN 09/07/18 10/26/18 hydrocodone 5 mg-acetaminophen 325 1 tab PO Q6H 10/02/18 10/26/18 mg tablet diltiazem HCl 120 mg PO DAILY #60 cap 10/06/18 10/26/18 magnesium 250 mg PO DAILY 10/06/18 10/26/18 Previous Rx's Medication Instructions Recorded Eliquis 5 mg PO BID 30 Days #60 tab 02/24/18 diltiazem HCl 120 mg PO DAILY #60 cap 10/06/18 Allergies Allergy/AdvReac Type Severity Reaction Status Date / Time atorvastatin calcium AdvReac Intermediate liver Unverified 11/03/18 06:11 [From Lipitor] problems niacin AdvReac Mild flushing Unverified 11/03/18 06:11 adhesive from monitor tabs Allergy Intermediate jones Uncoded 11/03/18 06:11 General Stated Complaint: EyeProblem MARQUIS: 4 Review of Systems Review of Systems All systems reviewed & are unremarkable except as noted in HPI and below Constitutional Reports as per HPI, Denies chills and Denies fever(s) Eyes Reports blurry vision, Denies diplopia, Denies eye discharge, Reports irritation and Denies photophobia ENT Denies dizziness, Denies sore throat and Denies throat swelling Cardiovascular Denies chest pain and Denies dyspnea Respiratory Denies cough and Denies dyspnea Gastrointestinal Denies abdominal pain, Denies diarrhea and Denies vomiting Genitourinary Denies hematuria and Denies dysuria Musculoskeletal Denies back pain and Denies numbness Integumentary/Breasts Denies lesions and Denies rash Neurologic Denies dizziness, Denies focal weakness and Denies numbness Allergic/Immunologic Denies throat swelling [facility] Social History Smoking and Tabacco status: Current every day alcohol intake: never substance use type: does not use Exam Const General: cooperative, healthy appearing and no acute distress HENMT Head: normal to inspection Face and sinus: normal facial exam Eyes General: appearance normal, both eyes and all related structures Periorbital: periorbital findings normal Eyelids: eyelids normal Pupils: PERRL EOM: EOM intact bilaterally Eyes/upper lids images: 1. Questionable 1 mm white/clear foreign body. Neck Neck: normal visual inspection Resp Effort & Inspection: normal respiratory effort and able to speak in complete sentences Cardio Rate: regular rate Skin General skin exam: no rashes or lesions noted Neuro General: alert, awake and oriented x3 Cognition: normal cognition Speech: speech normal Motor: muscle tone normal throughout Sensory Exam: no sensory deficits noted Extrem General: normal to inspection and full ROM Psych Appearance: grossly normal Mental Status: mental status grossly normal Speech and Movement: speech and movement normal Affect: normal affect Course Vital Signs Temperature 98 F 11/03/18 06:08 Pulse 60 11/03/18 06:08 Respiratory Rate 16 11/03/18 06:08 Blood Pressure 132/87 11/03/18 06:08 Pulse Oximetry 99 11/03/18 06:08 Temperature 98 F 11/03/18 06:08 Temperature Source Skin 11/03/18 06:08 Pulse 60 11/03/18 06:08 Respiratory Rate 16 11/03/18 06:08 Respiratory Effort 11/03/18 06:11 Blood Pressure 132/87 11/03/18 06:08 Pulse Oximetry 99 11/03/18 06:08 Oxygen Delivery Method Room Air 11/03/18 06:08 Oxygen Flow Rate 0 11/03/18 06:08 Pain Level 7 11/03/18 06:08
== END 2018-11-03 06:50 | disposition home or self-care (01) ==
LOC: ER 06:50
PROVIDERS: Emergency Provider Physician Assistant; PCP Internal Medicine
DX: S05.01XA Injury of conjunctiva and corneal abrasion without foreign body, right eye, initial encounter (principal); T15.91XA Foreign body on external eye, part unspecified, right eye, initial encounter
CPT/HCPCS: 65222

== ENCOUNTER 2018-11-19 07:56 | Emergency (ER) | payer BC, SELFPAY ==
[2018-11-19] VITALS (35 sets, daily range): BP systolic 76–113; BP diastolic 56–82; PULSE 57–164; RESP 9–37; TEMP 36.3; O2SAT 94–100
[2018-11-19 08:15] LABS: Abs Immature Grans 0.04 k/cumm (0.0-0.09); Absolute Basophil Count 0.03 k/cumm (0.0-0.2); Absolute Lymphocyte Count 2.73 k/cumm (1.2-3.4); Absolute Neutrophil Count 7.22 k/cumm (1.2-6.7); Basophils % 0.3; Eosinophils % 2.3; HCT 43.9 % (40.0-50.0); HGB 14.9 g/dL (13.5-17.5); Immature Grans % 0.4; Lymphocytes % 24.6; Mean Corp. HGB Concentration 33.9 g/dL (32.0-36.0); Mean Corpuscular Hemoglobin 30.8 pg (27.0-33.0); Mean Corpuscular Volume 90.7 fL (80-95); Mean Platelet Volume 9.5 fL (8.0-11.0); Monocytes % 7.2; Neutrophils % 65.2; Platelet Count 292 x1000/uL (130-400); RBC 4.84 m/cumm (4.50-6.00); RBC Distribution Width 13.3 % (11.8-14.1); White Blood Cell Count 11.08 k/cumm (4.4-10.8)
[2018-11-19 08:17] LABS: Absolute Eosinophil Count 0.25 k/cumm (0.0-0.7)
--- NOTE | 2018-11-19 08:20 | DI.RAD_ITS ---
SYMPTOM/DIAGNOSIS: CHEST PAIN, SOB, A FIB PORTABLE AP CHEST: Comparison is made with 09/07/18. The exam is limited by respiratory motion and underinflation. The heart size is difficult to assess. Coronary artery stents are seen. The lungs are grossly clear. IMPRESSION: Limited exam. No acute abnormality.
--- NOTE | 2018-11-19 08:22 | W.ED.GENAD ---
Discharge Plan Disposition Patient Disposition: [facility] Condition: Serious Discharge Details Chief Complaint: Chest Pain Clinical Impression: Atrial fibrillation, Non-ST elevation IA (NSTEMI) Primary Care Provider: Delonte Corral ED Provider: Mik Christy Home Meds and New Rx's Prescriptions: No Action hydrocodone-acetaminophen 5-325 mg tablet 1 tab PO Q6H RF: 0 ascorbic acid (vitamin C) [Vitamin C] 1,000 MG tablet 1,000 mg PO DAILY RF: 0 Eliquis 5 MG tablet 5 mg PO BID 30 Days Qty: 60 RF: 4 lansoprazole [Prevacid SoluTab] 30 MG tablet,disintegrat, delay rel 30 mg PO DAILY RF: 0 nitroglycerin [Nitrostat] 0.4 MG tablet, sublingual 1 tab Sublingual Q5 MIN PRN X3 PRNRF: 0 bupropion HCl 150 MG tablet extended release 12 hr 300 mg PO DAILY RF: 0 isosorbide mononitrate 120 MG tablet extended release 24 hr 120 mg PO DAILY RF: 0 multivitamin 1 EACH capsule 1 ea PO DAILY RF: 0 magnesium 250 mg Tablet 500 mg PO DAILY RF: 0 diltiazem HCl 120 mg capsule,extended release 24hr 120 mg PO DAILY Qty: 60 RF: 0 Rosuvastatin Calcium 40 MG tablet 40 mg PO DAILY RF: 0 sotalol [Betapace] 80 MG tablet 80 mg PO BID RF: 0 biotin 800 mcg Tablet 1 tab PO DAILY RF: 0 clopidogrel [Plavix] 75 mg Tablet 75 mg PO DAILY RF: 0 amitriptyline 25 mg Tablet 25 mg PO HS PRNRF: 0 Medical Decision Making 53-year-old male presents from home with the abrupt onset this morning of rapid heart rate and chest pressure. He is postop day #6 status post ablation for A. fib at [facility]. He was discharged postop day 1 and states the interim 3-4 days were well until last night when he developed fluttering in his chest, slept through the night, and then this morning in the shower developed chest pressure, rapid heart rate, shortness of breath and near syncope. He did not pass out. The chest pressure is approximate 7 out of 10 upon arrival. He arrives with recurrent rapid atrial fibrillation with a pulse of 162, blood pressure 113/81. States he took his morning medications including Eliquis and Plavix. He is placed on secured entrance monitor, IV access established, rate control initiated with diltiazem drip, patient given small aliquot of morphine, 250 cc bolus. Rate has improved somewhat. Patient has evidence of non-STEMI with troponin of 0.15. His BNP is less than 200. Creatinine is 1.2. Discussed with Dr. Loo of [facility] cardiology service, agrees with ongoing rate control. Patient is anticoagulated with Eliquis and Plavix already. Patient accepted to Dr. Del Real service. Discussed with the patient; sales attendant building materials transfer arranged. Lab Data Lab results reviewed: Yes I reviewed the patient's lab results. Laboratory Results - last 24 hr 11/19/18 11/19/18 11/19/18 08:05 08:05 08:05 WBC 11.08 H RBC 4.84 Hgb 14.9 Hct 43.9 MCV 90.7 MCH 30.8 MCHC 33.9 RDW 13.3 Plt Count 292 MPV 9.5 Immature Gran % 0.4 Neutrophils % 65.2 Lymphocytes % 24.6 Monocytes % 7.2 Eosinophils % 2.3 Basophils % 0.3 Absolute Neutrophils 7.22 H Absolute Lymphocytes 2.73 Absolute Monocytes 0.80 H Absolute Eosinophils 0.25 Absolute Basophils 0.03 PT 9.8 INR 1.0 Sodium 141 Potassium 4.7 Chloride 103 Carbon Dioxide 29.4 Anion Gap 8.6 BUN 17 Creatinine 1.22 Estimated GFR/1.73 m2 >= 60.00 Glucose 115 H Calcium 8.8 Magnesium 1.9 Total Bilirubin 0.2 AST 21 ALT 31 Alkaline Phosphatase 95 Troponin I 0.15 H* Total Protein 7.7 Albumin 3.2 L ECG Data Attestation: I personally reviewed and interpreted this ECG (s) as follows: Interpretation: Rapid atrial fibrillation with a rate of 155, the QRS is narrow, there is inverted T waves in aVL, do not appreciate ST elevation HPI General Mode of arrival: ambulatory. Date/Time Provider Initiated Documentation: 11/19/18 08:04. Limitations to Documentation: no limitations. Information obtained by: patient. History of Present Illness 53 year old M presents to the emergency department with the chief complaint of Chest pain and shortness of breath with elevated heart rate, described as moderate, Quality is described as dull and constant, and is localized to the chest. Patient neck. Patient started experiencing this minute(s) and it has been constant. No relieving factors improve symptom(s), No exacerbating factors reported . Patient notes shortness of breath and weakness; denies syncope. Patient did receive the following treatments prior to arrival, other (Took his morning medications) Related Data Home Medications Medication Instructions Recorded Confirmed lansoprazole [Prevacid SoluTab] 30 mg PO DAILY 06/18/13 11/19/18 nitroglycerin [Nitrostat] 1 tab SUBLINGUAL Q5 MIN PRN X3 PRN 10/17/13 11/19/18 bupropion HCl 300 mg PO DAILY 10/16/15 11/19/18 isosorbide mononitrate 120 mg PO DAILY 10/16/15 11/19/18 multivitamin 1 ea PO DAILY 04/28/17 11/19/18 ascorbic acid (vitamin C) [Vitamin 1,000 mg PO DAILY 07/18/17 11/19/18 C] Eliquis 5 mg PO BID 30 Days #60 tab 02/24/18 11/19/18 Rosuvastatin Calcium 40 mg PO DAILY 05/09/18 11/19/18 sotalol [Betapace] 80 mg PO BID 05/09/18 11/19/18 biotin 1 tab PO DAILY 06/05/18 11/19/18 clopidogrel [Plavix] 75 mg PO DAILY 07/24/18 11/19/18 amitriptyline 25 mg PO HS PRN 09/07/18 11/19/18 hydrocodone 5 mg-acetaminophen 325 1 tab PO Q6H 10/02/18 11/19/18 mg tablet diltiazem HCl 120 mg PO DAILY #60 cap 10/06/18 11/19/18 magnesium 500 mg PO DAILY 10/06/18 11/19/18 Previous Rx's Medication Instructions Recorded Eliquis 5 mg PO BID 30 Days #60 tab 02/24/18 diltiazem HCl 120 mg PO DAILY #60 cap 10/06/18 Allergies Allergy/AdvReac Type Severity Reaction Status Date / Time atorvastatin calcium AdvReac Intermediate liver Unverified 11/19/18 08:09 [From Lipitor] problems niacin AdvReac Mild flushing Unverified 11/19/18 08:09 adhesive from monitor tabs Allergy Intermediate jones Uncoded 11/19/18 08:09 General Stated Complaint: Chest Pain MARQUIS: 2 Review of Systems Review of Systems 8 systems reviewed and otherwise negative. Patient states that he was lightheaded in the shower with increased chest pressure, did not have syncope. He had associated shortness of breath. He states he had fluttering of his heart last night [facility] Medical History Atrial fibrillation (Chronic) Anemia (Chronic) Back pain, chronic (Chronic) Chest pain (Chronic) Coronary artery disease (Chronic) Depression with anxiety (Chronic) Diverticulosis (Chronic) Duodenal ulcer (Chronic) Dysesthesia (Chronic) Dyslipidemia (Chronic) Dyspepsia (Chronic) Esophagitis (Chronic) Gastritis (Chronic) Hemiplegia (Chronic) History of kidney cancer (Chronic) Hx of adenomatous polyp of colon (Chronic) Ischemic stroke (Chronic) Lipoma of back (Chronic) Occipital headache (Chronic) Pulmonary nodules (Chronic) Sleep apnea (Chronic) Tobacco use (Chronic) Surgical History Colonoscopy - MAC (Inactive 08/03/17) EGD - MAC (Inactive 08/03/17) Partial Nephrectomy (Inactive) Repair of inguinal hernia (Inactive) cardiac cath (Inactive) Social History Smoking and Tabacco status: Current every day alcohol intake: never substance use type: does not use Exam Narrative Exam Narrative: GEN: awake, alert, oriented 3. Pleasant, well groomed, interactive. HEAD: Normocephalic, atraumatic ENT: Mucous membranes moist, oropharynx unremarkable, External ear exam unremarkable EYES: PERRL, EOMI NECK: Full ROM, no CANDACE, no menigismus CHEST/RESP: Nontender, clear to auscultation bilateral, no wheeze/rhonchi/rales CARDIOVASCULAR: Tachycardic, irregularly irregular, no murmur, rub winter. 2+ Rad pulse bilateral ABDOMEN: Soft, nontender, no mass. +Bowel sounds EXT: Full ROM, no edema, no rash. Mild ecchymosis at the right wrist and bilateral inguinal areas. No bruits. No swelling. Neuro: Grossly normal neurologic exam, conversant, interactive. Psych: Speech fluent, thoughts congruent, affect normal Course Vital Signs Temperature 36.3 C L 11/19/18 08:03 Pulse 162 H 11/19/18 08:03 Respiratory Rate 29 H 11/19/18 08:03 Blood Pressure 113/81 11/19/18 08:03 Pulse Oximetry 95 11/19/18 08:03 Temperature 36.3 C L 11/19/18 08:03 Temperature Source Skin 11/19/18 08:03 Pulse 162 H 11/19/18 08:03 Respiratory Rate 29 H 11/19/18 08:03 Respiratory Effort Non-Labored 11/19/18 08:03 Blood Pressure 113/81 11/19/18 08:03 Blood Pressure Position Supine 11/19/18 08:03 Pulse Oximetry 95 11/19/18 08:03 Oxygen Delivery Method Room Air 11/19/18 08:03 Oxygen Flow Rate 0 11/19/18 08:03 Pain Level 8 11/19/18 08:03 Lab/Test Results Lab/Test Results: Laboratory Tests Range/Units 11/19/18 08:05 WBC (4.4-10.8) k/cumm 11.08 H RBC (4.50-6.00) m/cumm 4.84 Hgb (13.5-17.5) g/dL 14.9 Hct (40.0-50.0) % 43.9 MCV (80-95) fL 90.7 MCH (27.0-33.0) pg 30.8 MCHC (32.0-36.0) g/dL 33.9 RDW (11.8-14.1) % 13.3 Plt Count (130-400) x1000/uL 292 MPV (8.0-11.0) fL 9.5 Immature Gran % 0.4 Neutrophils % 65.2 Lymphocytes % 24.6 Monocytes % 7.2 Eosinophils % 2.3 Basophils % 0.3 Absolute Neutrophils (1.2-6.7) k/cumm 7.22 H Absolute Lymphocytes (1.2-3.4) k/cumm 2.73 Absolute Monocytes (0.11-0.7) k/cumm 0.80 H Absolute Eosinophils (0.0-0.7) k/cumm 0.25 Absolute Basophils (0.0-0.2) k/cumm 0.03 Critical Care Time Critical Care Time: Yes Total Critical Care Time: 30 Attestation: Bedside management of life-threatening arrhythmia, discussion with consultants, review of records
--- NOTE | 2018-11-19 08:25 | ED.GENADUL_ITS ---
Discharge Plan Disposition Patient Disposition: [facility] Condition: Serious Discharge Details Chief Complaint: Chest Pain Clinical Impression: Atrial fibrillation, Non-ST elevation [place] (NSTEMI) Primary Care Provider: Delonte Corral ED Provider: Mik Christy Home Meds and New Rx's Prescriptions: No Action hydrocodone-acetaminophen 5-325 mg tablet 1 tab PO Q6H RF: 0 ascorbic acid (vitamin C) [Vitamin C] 1,000 MG tablet 1,000 mg PO DAILY RF: 0 Eliquis 5 MG tablet 5 mg PO BID 30 Days Qty: 60 RF: 4 lansoprazole [Prevacid SoluTab] 30 MG tablet,disintegrat, delay rel 30 mg PO DAILY RF: 0 nitroglycerin [Nitrostat] 0.4 MG tablet, sublingual 1 tab Sublingual Q5 MIN PRN X3 PRNRF: 0 bupropion HCl 150 MG tablet extended release 12 hr 300 mg PO DAILY RF: 0 isosorbide mononitrate 120 MG tablet extended release 24 hr 120 mg PO DAILY RF: 0 multivitamin 1 EACH capsule 1 ea PO DAILY RF: 0 magnesium 250 mg Tablet 500 mg PO DAILY RF: 0 diltiazem HCl 120 mg capsule,extended release 24hr 120 mg PO DAILY Qty: 60 RF: 0 Rosuvastatin Calcium 40 MG tablet 40 mg PO DAILY RF: 0 sotalol [Betapace] 80 MG tablet 80 mg PO BID RF: 0 biotin 800 mcg Tablet 1 tab PO DAILY RF: 0 clopidogrel [Plavix] 75 mg Tablet 75 mg PO DAILY RF: 0 amitriptyline 25 mg Tablet 25 mg PO HS PRNRF: 0 Medical Decision Making 53-year-old male presents from home with the abrupt onset this morning of rapid heart rate and chest pressure. He is postop day #6 status post ablation for A. fib at [facility]. He was discharged postop day 1 and states the interim 3-4 days were well until last night when he developed fluttering in his chest, slept through the night, and then this morning in the shower developed chest pressure, rapid heart rate, shortness of breath and near syncope. He did not pass out. The chest pressure is approximate 7 out of 10 upon arrival. He arrives with recurrent rapid atrial fibrillation with a pulse of 162, blood pressure 113/81. States he took his morning medications including Eliquis and Plavix. He is placed on decatizer, IV access established, rate control initiated with diltiazem drip, patient given small aliquot of morphine, 250 cc bolus. Rate has improved somewhat. Patient has evidence of non-STEMI with troponin of 0.15. His BNP is less than 200. Creatinine is 1.2. Discussed with Dr. Loo of [facility] cardiology service, agrees with ongoing rate control. Patient is anticoagulated with Eliquis and Plavix already. Patient accepted to Dr. Del Real service. 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 Lab Data Lab results reviewed: Yes I reviewed the patient's lab results. Laboratory Results - last 24 hr 11/19/18 11/19/18 11/19/18 08:05 08:05 08:05 WBC 11.08 H RBC 4.84 Hgb 14.9 Hct 43.9 MCV 90.7 MCH 30.8 MCHC 33.9 RDW 13.3 Plt Count 292 MPV 9.5 Immature Gran % 0.4 Neutrophils % 65.2 Lymphocytes % 24.6 Monocytes % 7.2 Eosinophils % 2.3 Basophils % 0.3 Absolute Neutrophils 7.22 H Absolute Lymphocytes 2.73 Absolute Monocytes 0.80 H Absolute Eosinophils 0.25 Absolute Basophils 0.03 PT 9.8 INR 1.0 Sodium 141 Potassium 4.7 Chloride 103 Carbon Dioxide 29.4 Anion Gap 8.6 BUN 17 Creatinine 1.22 Estimated GFR/1.73 m2 >= 60.00 Glucose 115 H Calcium 8.8 Magnesium 1.9 Total Bilirubin 0.2 AST 21 ALT 31 Alkaline Phosphatase 95 Troponin I 0.15 H* Total Protein 7.7 Albumin 3.2 L ECG Data Attestation: I personally reviewed and interpreted this ECG (s) as follows: Interpretation: Rapid atrial fibrillation with a rate of 155, the QRS is narrow, there is inverted T waves in aVL, do not appreciate ST elevation HPI General Mode of arrival: ambulatory . Date/Time Provider Initiated Documentation: 11/19/18 08:04 . Limitations to Documentation: no limitations . Information obtained by: patient . History of Present Illness 53 year old M presents to the emergency department with the chief complaint of Chest pain and shortness of breath with elevated heart rate, described as moderate, Quality is described as dull and constant, and is localized to the chest. Patient neck. Patient started experiencing this minute(s) and it has been constant. No relieving factors improve symptom(s), No exacerbating factors reported . Patient notes shortness of breath and weakness; denies syncope. Patient did receive the following treatments prior to arrival, other (Took his morning medications) Related Data Home Medications Medication Instructions Recorded Confirmed lansoprazole [Prevacid SoluTab] 30 mg PO DAILY 06/18/13 11/19/18 nitroglycerin [Nitrostat] 1 tab SUBLINGUAL Q5 MIN PRN X3 PRN 10/17/13 11/19/18 bupropion HCl 300 mg PO DAILY 10/16/15 11/19/18 isosorbide mononitrate 120 mg PO DAILY 10/16/15 11/19/18 multivitamin 1 ea PO DAILY 04/28/17 11/19/18 ascorbic acid (vitamin C) [Vitamin 1,000 mg PO DAILY 07/18/17 11/19/18 C] Eliquis 5 mg PO BID 30 Days #60 tab 02/24/18 11/19/18 Rosuvastatin Calcium 40 mg PO DAILY 05/09/18 11/19/18 sotalol [Betapace] 80 mg PO BID 05/09/18 11/19/18 biotin 1 tab PO DAILY 06/05/18 11/19/18 clopidogrel [Plavix] 75 mg PO DAILY 07/24/18 11/19/18 amitriptyline 25 mg PO HS PRN 09/07/18 11/19/18 hydrocodone 5 mg-acetaminophen 325 1 tab PO Q6H 10/02/18 11/19/18 mg tablet diltiazem HCl 120 mg PO DAILY #60 cap 10/06/18 11/19/18 magnesium 500 mg PO DAILY 10/06/18 11/19/18 Previous Rx's Medication Instructions Recorded Eliquis 5 mg PO BID 30 Days #60 tab 02/24/18 diltiazem HCl 120 mg PO DAILY #60 cap 10/06/18 Allergies Allergy/AdvReac Type Severity Reaction Status Date / Time atorvastatin calcium AdvReac Intermediate liver Unverified 11/19/18 08:09 [From Lipitor] problems niacin AdvReac Mild flushing Unverified 11/19/18 08:09 adhesive from monitor tabs Allergy Intermediate jones Uncoded 11/19/18 08:09 General Stated Complaint: Chest Pain MARQUIS: 2 Review of Systems Review of Systems 8 systems reviewed and otherwise negative. Patient states that he was lightheaded in the shower with increased chest pressure, did not have syncope. He had associated shortness of breath. He states he had fluttering of his heart last night [facility] Medical History Atrial fibrillation (Chronic) Anemia (Chronic) Back pain, chronic (Chronic) Chest pain (Chronic) Coronary artery disease (Chronic) Depression with anxiety (Chronic) Diverticulosis (Chronic) Duodenal ulcer (Chronic) Dysesthesia (Chronic) Dyslipidemia (Chronic) Dyspepsia (Chronic) Esophagitis (Chronic) Gastritis (Chronic) Hemiplegia (Chronic) History of kidney cancer (Chronic) Hx of adenomatous polyp of colon (Chronic) Ischemic stroke (Chronic) Lipoma of back (Chronic) Occipital headache (Chronic) Pulmonary nodules (Chronic) Sleep apnea (Chronic) Tobacco use (Chronic) Surgical History Colonoscopy - MAC (Inactive 08/03/17) EGD - MAC (Inactive 08/03/17) Partial Nephrectomy (Inactive) Repair of inguinal hernia (Inactive) cardiac cath (Inactive) Social History Smoking and Tabacco status: Current every day alcohol intake: never substance use type: does not use Exam Narrative Exam Narrative: GEN: awake, alert, oriented 3. Pleasant, well groomed, interactive. HEAD: Normocephalic, atraumatic ENT: Mucous membranes moist, oropharynx unremarkable, External ear exam unremarkable EYES: PERRL, EOMI NECK: Full ROM, no CANDACE, no menigismus CHEST/RESP: Nontender, clear to auscultation bilateral, no wheeze/rhonchi/rales CARDIOVASCULAR: Tachycardic, irregularly irregular, no murmur, rub winter. 2+ Rad pulse bilateral ABDOMEN: Soft, nontender, no mass. +Bowel sounds EXT: Full ROM, no edema, no rash. Mild ecchymosis at the right wrist and bilateral inguinal areas. No bruits. No swelling. Neuro: Grossly normal neurologic exam, conversant, interactive. Psych: Speech fluent, thoughts congruent, affect normal Course Vital Signs Temperature 36.3 C L 11/19/18 08:03 Pulse 162 H 11/19/18 08:03 Respiratory Rate 29 H 11/19/18 08:03 Blood Pressure 113/81 11/19/18 08:03 Pulse Oximetry 95 11/19/18 08:03 Temperature 36.3 C L 11/19/18 08:03 Temperature Source Skin 11/19/18 08:03 Pulse 162 H 11/19/18 08:03 Respiratory Rate 29 H 11/19/18 08:03 Respiratory Effort Non-Labored 11/19/18 08:03 Blood Pressure 113/81 11/19/18 08:03 Blood Pressure Position Supine 11/19/18 08:03 Pulse Oximetry 95 11/19/18 08:03 Oxygen Delivery Method Room Air 11/19/18 08:03 Oxygen Flow Rate 0 11/19/18 08:03 Pain Level 8 11/19/18 08:03 Lab/Test Results Lab/Test Results: Laboratory Tests Range/Units 11/19/18 08:05 WBC (4.4-10.8) k/cumm 11.08 H RBC (4.50-6.00) m/cumm 4.84 Hgb (13.5-17.5) g/dL 14.9 Hct (40.0-50.0) % 43.9 MCV (80-95) fL 90.7 MCH (27.0-33.0) pg 30.8 MCHC (32.0-36.0) g/dL 33.9 RDW (11.8-14.1) % 13.3 Plt Count (130-400) x1000/uL 292 MPV (8.0-11.0) fL 9.5 Immature Gran % 0.4 Neutrophils % 65.2 Lymphocytes % 24.6 Monocytes % 7.2 Eosinophils % 2.3 Basophils % 0.3 Absolute Neutrophils (1.2-6.7) k/cumm 7.22 H Absolute Lymphocytes (1.2-3.4) k/cumm 2.73 Absolute Monocytes (0.11-0.7) k/cumm 0.80 H Absolute Eosinophils (0.0-0.7) k/cumm 0.25 Absolute Basophils (0.0-0.2) k/cumm 0.03 Critical Care Time Critical Care Time: Yes Total Critical Care Time: 30 Attestation: Bedside management of life-threatening arrhythmia, discussion with consultants, review of records
[2018-11-19 08:29] LABS: ALT 31 U/L (12-78); AST 21 U/L (15-37); Albumin 3.2 g/dL (3.4-5.0); Alkaline Phosphatase 95 U/L (46-116); Anion Gap 8.6 mmol/L (3-11); BUN 17 mg/dL (7-18); Bilirubin, Total 0.2 mg/dL (0.2-1.0); CO2 29.4 mmol/L (21.0-32.0); CREATININE 1.22 mg/dL (0.70-1.30); Calcium 8.8 mg/dL (8.5-10.1); Chloride 103 mmol/L (98-107); Glucose 115 mg/dL (70-100); Magnesium 1.9 mg/dL (1.8-2.4); Potassium 4.7 mmol/L (3.5-5.1); Sodium 141 mmol/L (136-145); Total Protein 7.7 g/dL (6.4-8.2)
[2018-11-19] MEDS: MORPHine 10 MG/ML VIAL 2 MG IVP (08:30)
[2018-11-19 08:31] LABS: Troponin I 0.15 ng/mL (0.00-0.06)
[2018-11-19 08:35] LABS: Prothrombin Time 9.8 sec (9.3-11.0)
[2018-11-19] MEDS: Normal Saline 250 ML IV (08:35)
--- NOTE | 2018-11-19 08:46 | DI.VRAD_ITS ---
EXAM: XR Chest, 1 View EXAM DATE/TIME: 11/19/2018 8:22 AM CLINICAL HISTORY: 53 years old, male; Pain; Chest pain TECHNIQUE: XR of the chest, 1 view. COMPARISON: CR XR PORTABLE CHEST AP 09/07/2018 3:10 PM FINDINGS: Lungs: Mild nonspecific central peribronchial interstitial prominence may reflect bronchitis. Pleural space: Unremarkable. No pleural effusion. No pneumothorax. Heart/Mediastinum: Unremarkable. No cardiomegaly. Bones/joints: Unremarkable. IMPRESSION: Mild nonspecific central peribronchial interstitial prominence may reflect bronchitis. Dictated and Authenticated by: Bebo Mireles MD. Ordering:CHIKIS Houser MD
[2018-11-19 08:47] LABS: NT-proBNP 148 pg/mL
[2018-11-19] MEDS: LORazepam 2 MG/ML VIAL 0.5 MG IVP (09:17)
== END 2018-11-19 09:50 | disposition short-term general hospital (02) ==
PROVIDERS: Emergency Provider Emergency Medicine; PCP Internal Medicine
DX: R00.0 Tachycardia, unspecified (principal); R06.02 Shortness of breath; R55 Syncope and collapse; I21.4 Non-ST elevation (NSTEMI) myocardial infarction; I48.91 Unspecified atrial fibrillation; Y83.8 Other surgical procedures as the cause of abnormal reaction of the patient, or of later complication, without mention of misadventure at the time of the procedure; Z79.02 Long term (current) use of antithrombotics/antiplatelets; Z79.01 Long term (current) use of anticoagulants; I25.10 Atherosclerotic heart disease of native coronary artery without angina pectoris; Z95.5 Presence of coronary angioplasty implant and graft; F17.210 Nicotine dependence, cigarettes, uncomplicated
CPT/HCPCS: 36415; 80053; 93005; 96361; 96365; 96375; 99291; 71045; 83735; 83880; 84484; 85025; 85610; 93010; J2060; J2270

== ENCOUNTER 2018-11-21 16:52 | Emergency (ER) | payer BC, SELFPAY ==
[2018-11-21] VITALS (22 sets, daily range): BP systolic 110–130; BP diastolic 76–94; PULSE 56–138; RESP 12–20; TEMP 37; O2SAT 92–99
--- NOTE | 2018-11-21 17:19 | W.ED.GENAD ---
Discharge Plan Disposition Patient Disposition: HOME Condition: Stable Discharge Details Chief Complaint: Chest Pain Clinical Impression: Atrial fibrillation Primary Care Provider: Delonte Corral ED Provider: Bladimir Collazo Home Meds and New Rx's Prescriptions: Continued hydrocodone-acetaminophen 5-325 mg tablet 1 tab PO Q6H RF: 0 ascorbic acid (vitamin C) [Vitamin C] 1,000 MG tablet 1,000 mg PO DAILY RF: 0 Eliquis 5 MG tablet 5 mg PO BID 30 Days Qty: 60 RF: 4 lansoprazole [Prevacid SoluTab] 30 MG tablet,disintegrat, delay rel 30 mg PO DAILY RF: 0 nitroglycerin [Nitrostat] 0.4 MG tablet, sublingual 1 tab Sublingual Q5 MIN PRN X3 PRNRF: 0 bupropion HCl 150 MG tablet extended release 12 hr 300 mg PO DAILY RF: 0 isosorbide mononitrate 120 MG tablet extended release 24 hr 120 mg PO DAILY RF: 0 multivitamin 1 EACH capsule 1 ea PO DAILY RF: 0 magnesium 250 mg Tablet 500 mg PO DAILY RF: 0 Rosuvastatin Calcium 40 MG tablet 40 mg PO DAILY RF: 0 biotin 800 mcg Tablet 1 tab PO DAILY RF: 0 clopidogrel [Plavix] 75 mg Tablet 75 mg PO DAILY RF: 0 amitriptyline 25 mg Tablet 25 mg PO HS PRNRF: 0 amiodarone 400 mg Tablet 400 mg PO DAILY RF: 0 colchicine 0.6 mg Capsule 0.6 mg PO BID RF: 0 Discharge Instructions Instructions: Atrial Fibrillation (ED) Additional Instructions: Take the diltiazem 60mg every 6 hours until you take the amiodarone tomorrow 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 for continued management of your atrial fibrillation If you have severe worsening of your pain or difficulty breathing return to the emergency department Discharge Data Discharge Date/Time-TO BE ENTERED AT DEPARTURE: 11/21/18 19:00 Medical Decision Making 53 yo male with hx of cad with multiple ND with most recent 06/2018 with [facility] to LCX, kidney cancer s/p partial left nephrectomy, htn, hld, gerd, afib with ablation on 11/13 and recent d/c from [facility] [place] yesterday after admission for afib with rvr where he had sotalol d/c'd and was supposed to start amiodarone tomorrow, comes in after he started to experiencing his heart beating fast around 320pm today while sitting watching television. He has 2/10 chest pain similar to the pain he had when he was d/c'd yesterday and was felt likely pericarditis per [facility] [place] notes. He denies fevers, sob. On exam he is in no distress speaking in full sentences. HE is in afib with rvr with rates of 120-140. Will give IV dilt and drip to control his rate and also eval for acs and electrolyte abnormalities. He has no evidence of dvt, is on eliquis and has no significant hypoxia or pleuritic chest pain so doubt PE at this time. PT remains stable, using his phone and has no new symptoms. Awaiting lab work. HR now in the 100's, oral diltizaem given Pt's HR is now in the 90's in afib. He remains stable in no distress. HIs initial labs show no acute findings. The pt wishes to go home given his HR is under control and will start amiodarone in the AM as instructed. I feel this is reasonable, I did recommend delta troponin which he declined. Will send home with oral dilt until he can start amiodarone in the AM, return precautions given. Differential Diagnosis afib with rvr, nstemi, electrolyte abnormality ECG Data Attestation: I personally reviewed and interpreted this ECG (s) as follows: Prior ECG tracings: available for review Interpretation: afib, rates in the 130's, compared to old ekg with similar rates no acute s t t wave changes HPI General Mode of arrival: ambulatory. Date/Time Provider Initiated Documentation: 11/21/18 17:02. Limitations to Documentation: no limitations. Information obtained by: patient. History of Present Illness 53 year old M presents to the emergency department with the chief complaint of chest pain, described as mild, with intensity rated at 2. Quality is described as aching, and is localized to the chest. Patient reports no radiation. Patient started experiencing this hour(s) (2) and it has been constant. No relieving factors improve symptom(s), No exacerbating factors reported . Patient notes other (high heart rate). Patient did receive the following treatments prior to arrival, none Related Data Home Medications Medication Instructions Recorded Confirmed lansoprazole [Prevacid SoluTab] 30 mg PO DAILY 06/18/13 11/21/18 nitroglycerin [Nitrostat] 1 tab SUBLINGUAL Q5 MIN PRN X3 PRN 10/17/13 11/21/18 bupropion HCl 300 mg PO DAILY 10/16/15 11/21/18 isosorbide mononitrate 120 mg PO DAILY 10/16/15 11/21/18 multivitamin 1 ea PO DAILY 04/28/17 11/21/18 ascorbic acid (vitamin C) [Vitamin 1,000 mg PO DAILY 07/18/17 11/21/18 C] Eliquis 5 mg PO BID 30 Days #60 tab 02/24/18 11/21/18 Rosuvastatin Calcium 40 mg PO DAILY 05/09/18 11/21/18 biotin 1 tab PO DAILY 06/05/18 11/21/18 clopidogrel [Plavix] 75 mg PO DAILY 07/24/18 11/21/18 amitriptyline 25 mg PO HS PRN 09/07/18 11/21/18 hydrocodone 5 mg-acetaminophen 325 1 tab PO Q6H 10/02/18 11/21/18 mg tablet magnesium 500 mg PO DAILY 10/06/18 11/21/18 amiodarone 400 mg PO DAILY 11/21/18 11/21/18 colchicine 0.6 mg PO BID 11/21/18 11/21/18 Previous Rx's Medication Instructions Recorded Eliquis 5 mg PO BID 30 Days #60 tab 02/24/18 Allergies Allergy/AdvReac Type Severity Reaction Status Date / Time atorvastatin calcium AdvReac Intermediate liver Unverified 11/21/18 17:07 [From Lipitor] problems niacin AdvReac Mild flushing Unverified 11/21/18 17:07 adhesive from monitor tabs Allergy Intermediate jones Uncoded 11/21/18 17:07 General Stated Complaint: Chest Pain MARQUIS: 2 Review of Systems Review of Systems All systems reviewed & are unremarkable except as noted in HPI and below Constitutional Denies chills, Denies fever(s) and Denies weakness Eyes Denies loss of vision ENT Denies change in voice Cardiovascular Denies dyspnea Respiratory Denies cough and Denies dyspnea Gastrointestinal Denies abdominal pain, Denies nausea and Denies vomiting Musculoskeletal Denies joint swelling Neurologic Denies loss of vision and Denies weakness Psychiatric Denies depression Endocrine Denies cold intolerance and Denies heat intolerance [facility] Medical History Atrial fibrillation (Chronic) Anemia (Chronic) Back pain, chronic (Chronic) Chest pain (Chronic) Coronary artery disease (Chronic) Depression with anxiety (Chronic) Diverticulosis (Chronic) Duodenal ulcer (Chronic) Dysesthesia (Chronic) Dyslipidemia (Chronic) Dyspepsia (Chronic) Esophagitis (Chronic) Gastritis (Chronic) Hemiplegia (Chronic) History of kidney cancer (Chronic) Hx of adenomatous polyp of colon (Chronic) Ischemic stroke (Chronic) Lipoma of back (Chronic) Occipital headache (Chronic) Pulmonary nodules (Chronic) Sleep apnea (Chronic) Tobacco use (Chronic) Surgical History Colonoscopy - MAC (Inactive 08/03/17) EGD - MAC (Inactive 08/03/17) Partial Nephrectomy (Inactive) Repair of inguinal hernia (Inactive) cardiac cath (Inactive) Social History Smoking and Tabacco status: Current every day alcohol intake: never substance use type: does not use Exam Const General: no acute distress Orientation: alert HENMT Head: normal to inspection Ears: external ears normal General nose exam: external nose normal Mouth: moist mucous membranes Eyes General: appearance normal, both eyes and all related structures Neck Neck: normal visual inspection Resp Effort & Inspection: normal respiratory effort and able to speak in complete sentences Cardio Jugular venous pressure: no JVD Skin General skin exam: no rashes or lesions noted Neuro General: alert and oriented x3 Extrem General: normal to inspection Psych Mental Status: mental status grossly normal Course Vital Signs Temperature 37 C 11/21/18 16:59 Pulse 136 H 11/21/18 16:59 Respiratory Rate 17 11/21/18 16:59 Blood Pressure 124/94 H 11/21/18 16:59 Pulse Oximetry 97 11/21/18 16:59 Temperature 37 C 11/21/18 16:59 Temperature Source Skin 11/21/18 16:59 Pulse 136 H 11/21/18 16:59 Respiratory Rate 17 11/21/18 16:59 Respiratory Effort 11/21/18 17:13 Blood Pressure 124/94 H 11/21/18 16:59 Pulse Oximetry 97 11/21/18 16:59 Oxygen Delivery Method Room Air 11/21/18 16:59 Oxygen Flow Rate 0 02/26/19 16:59 Pain Level 5 11/21/18 16:59
--- NOTE | 2018-11-21 17:26 | ED.GENADUL_ITS ---
Discharge Plan Disposition Patient Disposition: HOME Condition: Stable Discharge Details Chief Complaint: Chest Pain Clinical Impression: Atrial fibrillation Primary Care Provider: Delonte Corral ED Provider: Bladimir Collazo Home Meds and New Rx's Prescriptions: Continued hydrocodone-acetaminophen 5-325 mg tablet 1 tab PO Q6H RF: 0 ascorbic acid (vitamin C) [Vitamin C] 1,000 MG tablet 1,000 mg PO DAILY RF: 0 Eliquis 5 MG tablet 5 mg PO BID 30 Days Qty: 60 RF: 4 lansoprazole [Prevacid SoluTab] 30 MG tablet,disintegrat, delay rel 30 mg PO DAILY RF: 0 nitroglycerin [Nitrostat] 0.4 MG tablet, sublingual 1 tab Sublingual Q5 MIN PRN X3 PRNRF: 0 bupropion HCl 150 MG tablet extended release 12 hr 300 mg PO DAILY RF: 0 isosorbide mononitrate 120 MG tablet extended release 24 hr 120 mg PO DAILY RF: 0 multivitamin 1 EACH capsule 1 ea PO DAILY RF: 0 magnesium 250 mg Tablet 500 mg PO DAILY RF: 0 Rosuvastatin Calcium 40 MG tablet 40 mg PO DAILY RF: 0 biotin 800 mcg Tablet 1 tab PO DAILY RF: 0 clopidogrel [Plavix] 75 mg Tablet 75 mg PO DAILY RF: 0 amitriptyline 25 mg Tablet 25 mg PO HS PRNRF: 0 amiodarone 400 mg Tablet 400 mg PO DAILY RF: 0 colchicine 0.6 mg Capsule 0.6 mg PO BID RF: 0 Discharge Instructions Instructions: Atrial Fibrillation (ED) Additional Instructions: Take the diltiazem 60mg every 6 hours until you take the amiodarone tomorrow follow up with your toll test worker as scheduled for continued management of your atrial fibrillation If you have severe worsening of your pain or difficulty breathing return to the emergency department Discharge Data Discharge Date/Time-TO BE ENTERED AT DEPARTURE: 11/21/18 19:00 Medical Decision Making 53 yo male with hx of cad with multiple NC with most recent 06/2018 with [facility] to LCX, kidney cancer s/p partial left nephrectomy, htn, hld, gerd, afib with ablation on 11/13 and recent d/c from [facility] [place] yesterday after admission for afib with rvr where he had sotalol d/c'd and was supposed to start amiodarone tomorrow, comes in after he started to experiencing his heart beating fast around 320pm today while sitting watching television. He has 2/10 chest pain similar to the pain he had when he was d/c'd yesterday and was felt likely pericarditis per [facility] [place] notes. He denies fevers, sob. On exam he is in no distress speaking in full sentences. HE is in afib with rvr with rates of 120-140. Will give IV dilt and drip to control his rate and also eval for acs and electrolyte abnormalities. He has no evidence of dvt, is on eliquis and has no significant hypoxia or pleuritic chest pain so doubt PE at this time. PT remains stable, using his phone and has no new symptoms. Awaiting lab work. HR now in the 100's, oral diltizaem given Pt's HR is now in the 90's in afib. He remains stable in no distress. HIs initial labs show no acute findings. The pt wishes to go home given his HR is under control and will start amiodarone in the AM as instructed. I feel this is reasonable, I did recommend delta troponin which he declined. Will send home with oral dilt until he can start amiodarone in the AM, return precautions given. Differential Diagnosis afib with rvr, nstemi, electrolyte abnormality ECG Data Attestation: I personally reviewed and interpreted this ECG (s) as follows: Prior ECG tracings: available for review Interpretation: afib, rates in the 130's, compared to old ekg with similar rates no acute s t t wave changes HPI General Mode of arrival: ambulatory . Date/Time Provider Initiated Documentation: 11/21/18 17:02 . Limitations to Documentation: no limitations . Information obtained by: patient . History of Present Illness 53 year old M presents to the emergency department with the chief complaint of chest pain, described as mild, with intensity rated at 2. Quality is described as aching, and is localized to the chest. Patient reports no radiation. Patient started experiencing this hour(s) (2) and it has been constant. No relieving factors improve symptom(s), No exacerbating factors reported . Patient notes other (high heart rate). Patient did receive the following treatments prior to arrival, none Related Data Home Medications Medication Instructions Recorded Confirmed lansoprazole [Prevacid SoluTab] 30 mg PO DAILY 06/18/13 11/21/18 nitroglycerin [Nitrostat] 1 tab SUBLINGUAL Q5 MIN PRN X3 PRN 10/17/13 11/21/18 bupropion HCl 300 mg PO DAILY 10/16/15 11/21/18 isosorbide mononitrate 120 mg PO DAILY 10/16/15 11/21/18 multivitamin 1 ea PO DAILY 04/28/17 11/21/18 ascorbic acid (vitamin C) [Vitamin 1,000 mg PO DAILY 07/18/17 11/21/18 C] Eliquis 5 mg PO BID 30 Days #60 tab 02/24/18 11/21/18 Rosuvastatin Calcium 40 mg PO DAILY 05/09/18 11/21/18 biotin 1 tab PO DAILY 06/05/18 11/21/18 clopidogrel [Plavix] 75 mg PO DAILY 07/24/18 11/21/18 amitriptyline 25 mg PO HS PRN 09/07/18 11/21/18 hydrocodone 5 mg-acetaminophen 325 1 tab PO Q6H 10/02/18 11/21/18 mg tablet magnesium 500 mg PO DAILY 10/06/18 11/21/18 amiodarone 400 mg PO DAILY 11/21/18 11/21/18 colchicine 0.6 mg PO BID 11/21/18 11/21/18 Previous Rx's Medication Instructions Recorded Eliquis 5 mg PO BID 30 Days #60 tab 02/24/18 Allergies Allergy/AdvReac Type Severity Reaction Status Date / Time atorvastatin calcium AdvReac Intermediate liver Unverified 11/21/18 17:07 [From Lipitor] problems niacin AdvReac Mild flushing Unverified 11/21/18 17:07 adhesive from monitor tabs Allergy Intermediate jones Uncoded 11/21/18 17:07 General Stated Complaint: Chest Pain MARQUIS: 2 Review of Systems Review of Systems All systems reviewed & are unremarkable except as noted in HPI and below Constitutional Denies chills, Denies fever(s) and Denies weakness Eyes Denies loss of vision ENT Denies change in voice Cardiovascular Denies dyspnea Respiratory Denies cough and Denies dyspnea Gastrointestinal Denies abdominal pain, Denies nausea and Denies vomiting Musculoskeletal Denies joint swelling Neurologic Denies loss of vision and Denies weakness Psychiatric Denies depression Endocrine Denies cold intolerance and Denies heat intolerance [facility] Medical History Atrial fibrillation (Chronic) Anemia (Chronic) Back pain, chronic (Chronic) Chest pain (Chronic) Coronary artery disease (Chronic) Depression with anxiety (Chronic) Diverticulosis (Chronic) Duodenal ulcer (Chronic) Dysesthesia (Chronic) Dyslipidemia (Chronic) Dyspepsia (Chronic) Esophagitis (Chronic) Gastritis (Chronic) Hemiplegia (Chronic) History of kidney cancer (Chronic) Hx of adenomatous polyp of colon (Chronic) Ischemic stroke (Chronic) Lipoma of back (Chronic) Occipital headache (Chronic) Pulmonary nodules (Chronic) Sleep apnea (Chronic) Tobacco use (Chronic) Surgical History Colonoscopy - MAC (Inactive 08/03/17) EGD - MAC (Inactive 08/03/17) Partial Nephrectomy (Inactive) Repair of inguinal hernia (Inactive) cardiac cath (Inactive) Social History Smoking and Tabacco status: Current every day alcohol intake: never substance use type: does not use Exam Const General: no acute distress Orientation: alert HENMT Head: normal to inspection Ears: external ears normal General nose exam: external nose normal Mouth: moist mucous membranes Eyes General: appearance normal, both eyes and all related structures Neck Neck: normal visual inspection Resp Effort & Inspection: normal respiratory effort and able to speak in complete sentences Cardio Jugular venous pressure: no JVD Skin General skin exam: no rashes or lesions noted Neuro General: alert and oriented x3 Extrem General: normal to inspection Psych Mental Status: mental status grossly normal Course Vital Signs Temperature 37 C 11/21/18 16:59 Pulse 136 H 11/21/18 16:59 Respiratory Rate 17 11/21/18 16:59 Blood Pressure 124/94 H 11/21/18 16:59 Pulse Oximetry 97 11/21/18 16:59 Temperature 37 C 11/21/18 16:59 Temperature Source Skin 11/21/18 16:59 Pulse 136 H 11/21/18 16:59 Respiratory Rate 17 11/21/18 16:59 Respiratory Effort 11/21/18 17:13 Blood Pressure 124/94 H 11/21/18 16:59 Pulse Oximetry 97 11/21/18 16:59 Oxygen Delivery Method Room Air 11/21/18 16:59 Oxygen Flow Rate 0 02/26/19 16:59 Pain Level 5 11/21/18 16:59
[2018-11-21 17:33] LABS: Abs Immature Grans 0.04 k/cumm (0.0-0.09); Absolute Basophil Count 0.03 k/cumm (0.0-0.2); Absolute Eosinophil Count 0.14 k/cumm (0.0-0.7); Absolute Lymphocyte Count 2.66 k/cumm (1.2-3.4); Absolute Monocyte Count 0.95 k/cumm (0.11-0.7); Absolute Neutrophil Count 9.35 k/cumm (1.2-6.7); Basophils % 0.2; Eosinophils % 1.1; HCT 42.3 % (40.0-50.0); HGB 14.4 g/dL (13.5-17.5); Immature Grans % 0.3; Lymphocytes % 20.2; Mean Corpuscular Hemoglobin 30.6 pg (27.0-33.0); Mean Corpuscular Volume 89.8 fL (80-95); Mean Platelet Volume 9.3 fL (8.0-11.0); Monocytes % 7.2; Platelet Count 271 x1000/uL (130-400); RBC 4.71 m/cumm (4.50-6.00); RBC Distribution Width 13.4 % (11.8-14.1); White Blood Cell Count 13.17 k/cumm (4.4-10.8)
[2018-11-21 17:48] LABS: PTT Activated 28.1 sec (21.0-31.4); Prothrombin Time 10.2 sec (9.3-11.0)
[2018-11-21 17:51] LABS: ALT 32 U/L (12-78); AST 20 U/L (15-37); Albumin 3.7 g/dL (3.4-5.0); Alkaline Phosphatase 85 U/L (46-116); Anion Gap 7.7 mmol/L (3-11); BUN 16 mg/dL (7-18); Bilirubin, Total 0.3 mg/dL (0.2-1.0); CO2 29.3 mmol/L (21.0-32.0); CREATININE 1.19 mg/dL (0.70-1.30); Calcium 9.1 mg/dL (8.5-10.1); Chloride 103 mmol/L (98-107); Glucose 82 mg/dL (70-100); Magnesium 1.9 mg/dL (1.8-2.4); Potassium 3.8 mmol/L (3.5-5.1); Sodium 140 mmol/L (136-145); Troponin I 0.04 ng/mL (0.00-0.06)
--- NOTE | 2018-11-21 18:07 | NUR.NOTE ---
patient medicated per MD order, patient ambulates to restroom steadily to restroom Nursing Note:
== END 2018-11-21 19:00 | disposition home or self-care (01) ==
PROVIDERS: Emergency Provider Emergency Medicine; PCP Internal Medicine
DX: I48.0 Paroxysmal atrial fibrillation (principal); I25.10 Atherosclerotic heart disease of native coronary artery without angina pectoris; I25.2 Old myocardial infarction
CPT/HCPCS: 36415; 80053; 93005; 96365; 96376; 99285; 83735; 84484; 85025; 85610; 85730; 93010

== ENCOUNTER 2018-11-30 14:21 | Outpatient (CLI) | payer BC, SELFPAY ==
[2018-11-30 14:54] LABS: Bilirubin Negative (Negative); Blood Negative (Negative); Clarity Clear; Glucose Negative (Negative); Ketones Trace mg/dL (Negative); Leukocyte Esterase Trace (Negative); Nitrite Negative (Negative); Specific Gravity 1.025 (1.005-1.025); Urobilinogen 0.2 EU/dL (Up TO 0.2)
[2018-11-30 15:17] LABS: Bacteria Rare HPF (Negative); Epithelial Cells Rare HPF (Negative); RBC Negative (0-2)
[2018-11-30 15:18] LABS: C & S Indicated? Yes; Casts Negative LPF (Negative); Crystals Negative HPF (Negative); Mucus Moderate (Negative)
== END 2018-11-30 14:41 ==
PROVIDERS: PCP Internal Medicine; Visit Provider Urology
DX: R35.0 Frequency of micturition (principal)
CPT/HCPCS: 81003; 81015; 87086

== ENCOUNTER 2018-12-04 08:47 | Outpatient (CLI) | payer BC, SELFPAY ==
--- NOTE | 2018-12-06 08:35 | HOLTER_ITS ---
HOLTER MONITOR DATE OF DICTATION December 06, 2018 STUDY INDICATION Not available. REQUESTING PROVIDER Rachael Fuller M.D. FINDINGS The patient was monitored for one day. The baseline rhythm was sinus rhythm. Average heart rate 74 beats per minute, range 60 to 100 beats per minute. There was rare ectopy. There was no VT, SVT or atrial fibrillation. There were no pauses greater than 3 seconds. There was no higher degree heart block. There were no patient events. FINAL INTERPRETATION Normal study. Hemal Chino M.D. T - 12/06/2018
== END 2018-12-04 09:07 ==
PROVIDERS: PCP Internal Medicine; Visit Provider Internal Medicine Cardiovascular Disease
DX: I48.91 Unspecified atrial fibrillation (principal)
CPT/HCPCS: 93225

== ENCOUNTER 2018-12-05 11:04 | Outpatient (CLI) | payer BC, SELFPAY | END 2018-12-05 11:24 | PROVIDERS: PCP Internal Medicine; Visit Provider Internal Medicine Cardiovascular Disease | DX: I48.91 Unspecified atrial fibrillation (principal) | CPT/HCPCS: 93226 ==

== ENCOUNTER 2018-12-11 08:01 | Emergency (ER) | payer BC, SELFPAY ==
[2018-12-11] VITALS (62 sets, daily range): BP systolic 121–144; BP diastolic 76–88; PULSE 58–77; RESP 14–23; TEMP 36.9–37; O2SAT 90–98
--- NOTE | 2018-12-11 08:10 | ED.GENADUL_ITS ---
Discharge Plan Disposition Patient Disposition: HOME Condition: Stable Discharge Details Chief Complaint: Chest Pain Clinical Impression: Chest pain Primary Care Provider: Delonte Corral ED Provider: Cailin Barton Home Meds and New Rx's Prescriptions: Continued hydrocodone-acetaminophen 5-325 mg tablet 1 tab PO Q6H RF: 0 ascorbic acid (vitamin C) [Vitamin C] 1,000 MG tablet 1,000 mg PO DAILY RF: 0 Eliquis 5 MG tablet 5 mg PO BID 30 Days Qty: 60 RF: 4 lansoprazole [Prevacid SoluTab] 30 MG tablet,disintegrat, delay rel 30 mg PO DAILY RF: 0 nitroglycerin [Nitrostat] 0.4 MG tablet, sublingual 1 tab Sublingual Q5 MIN PRN X3 PRNRF: 0 bupropion HCl 150 MG tablet extended release 12 hr 300 mg PO DAILY RF: 0 isosorbide mononitrate 120 MG tablet extended release 24 hr 120 mg PO DAILY RF: 0 multivitamin 1 EACH capsule 1 ea PO DAILY RF: 0 magnesium 250 mg Tablet 500 mg PO DAILY RF: 0 Rosuvastatin Calcium 40 MG tablet 40 mg PO DAILY RF: 0 biotin 800 mcg Tablet 1 tab PO DAILY RF: 0 clopidogrel [Plavix] 75 mg Tablet 75 mg PO DAILY RF: 0 amitriptyline 25 mg Tablet 25 mg PO HS PRNRF: 0 amiodarone 400 mg Tablet 400 mg PO DAILY RF: 0 colchicine 0.6 mg Capsule 0.6 mg PO BID RF: 0 Discharge Instructions Instructions: Chest Pain (ED), Chronic Pericarditis (ED) Additional Instructions: Please return immediately to the emergency department if you develop any new or worsening symptoms or if you become otherwise concerned. It is extremely important that you make an appointment to be seen as soon as possible in follow- up this visit by your primary care doctor and also by your washhouse worker. Referrals: Bladimir Robin MD [ NON-[facility] STAFF PHYSICIAN] - Delonte Corral MD [Primary Care Provider] - Discharge Data Discharge Date/Time-TO BE ENTERED AT DEPARTURE: 12/11/18 15:54 Medical Decision Making Anjel Anne is a 53-year-old man with history of age A. fib, coronary artery disease status post 9 stents, CVA, on Eliquis and Plavix who presented to the emergency department with chest pain since last night, currently 5 out of 10. Benign cardiopulmonary exam, mild posterior calf tenderness on the right. Pt has presented here multiple times in the past several months for chest pain with negative troponins. Concern for ACS versus PE versus other. Exam/history is not consistent with acute aortic etiology, sepsis. Plan for EKG, chest x-ray, screening labs, nitro glycerin x1, IV, telemetry. Patient took Plavix and Eliquis this morning. Pt's pain resolved completely after nitro x1 (total of 3 including 2 he took at home). I discussed patient presentation results with Dr. Robin of cardiology who reports that he will obtain records from [facility] and call back with recommendations. CXR shows atelectasis versus pneumonia. No clinical pneumonia, no antibiotics at this time. Dr. Robin call back at 1430 reports that per records from [facility], patient apparently had ablation to 18, and then underwent nuclear stress testing 226 that was negative for ischemia. Patient was diagnosed with apparent pericarditis after ablation, and was started on colchicine. Dr. Robin requests third troponin, as troponin x2 negative. He recommends no admission or further intervention for possible ischemic etiology if troponin x3 is negative, and recommends patient be discharged home with colchicine for possible pericarditis (0.6 mg twice daily for total of 3 months). Pt with 3rd trop negative. Patient requesting discharge home. Pt now reports that he thinks his symptoms are secondary to pericarditis, as he forgot that he had stopped taking his Advil for pericarditis a few days ago. Patient reports that 1 of his medications was causing nausea, and he had stopped Advil to see if that was the culprit. Patient reports that he does not think that Advil was what was causing his nausea. He states that his chest pain had been controlled while he was taking Advil. Patient reports that he is not taking colchicine because he cannot afford it, and his washhouse worker had switched him to Advil. Plan to resume Advil as previously prescribed for pericarditis. I had a lengthy discussion with the patient regarding return to emergency department cautions, home care, and importance of outpatient follow-up with his PCP. Patient verbalized understanding the plan was amenable. All questions were answered. Medical Records Medical records reviewed: Yes I reviewed the patient's medical records. Imaging Data Radiologic Study: Attestation: I personally reviewed and interpreted this imaging study as follows: Radiologist's impression: CHEST X-RAY, FRONTAL AND LATERAL VIEWS: Comparisons are 09/07/18 and 09/18/18. There is poor inspiration. The cardiac silhouette is stable, as is the pulmonary vasculature. There are increased lung markings seen in the left base. This may represent atelectasis or pneumonia. No effusions or pneumothoraces are identified. The bones appear intact. IMPRESSION: Left basilar infiltrate. This may represent atelectasis or pneumonia. Lab Data Lab results reviewed: Yes I reviewed the patient's lab results. ECG Data Attestation: I personally reviewed and interpreted this ECG (s) as follows: Interpretation: EKG shows sinus rhythm at 67, normal axis, incomplete right bundle, inferior and lateral Q waves, no ST depressions or elevation, nondiagnostic EKG EKG #2 shows sinus rhythm at 70, normal axis, incomplete right bundle branch block, no change from prior, nondiagnostic EKG HPI General Mode of arrival: ambulatory . Date/Time Provider Initiated Documentation: 12/11/18 08:09 . Limitations to Documentation: no limitations . Information obtained by: patient, RN notes reviewed and old records reviewed . HPI Narrative: Adams Anne is a 53-year-old man with history of A. fib, coronary artery disease status post 9 stents presenting to the emergency room with chest pain. Patient reports that his most recent stent was 3-4 months ago, and his most recent stress test was approximately 1 month ago. He reports that his stress test was normal, although he states that he has passed many stress test in the past despite needing intervention with stent. Patient reports that he has been taking all of his medications including Plavix and Eliquis as prescribed. Patient reports that he woke from sleep last night with retrosternal chest pain that has both sharp and pressure-like quality. Patient reports that pain seemed intermittent throughout the night, but this morning has become constant. He took 2 nitroglycerin at home which brought his pain from a 7 out of 10 to a 5 out of 10 where it is currently. He denies any other pain, fevers, cough, shortness of breath, vomiting, diarrhea. He does report that he has had some nausea over the past 2-3 weeks. He has been eating and drinking as usual. No travel. Related Data Home Medications Medication Instructions Recorded Confirmed lansoprazole [Prevacid SoluTab] 30 mg PO DAILY 06/18/13 12/11/18 nitroglycerin [Nitrostat] 1 tab SUBLINGUAL Q5 MIN PRN X3 PRN 10/17/13 12/11/18 bupropion HCl 300 mg PO DAILY 10/16/15 12/11/18 isosorbide mononitrate 120 mg PO DAILY 10/16/15 12/11/18 multivitamin 1 ea PO DAILY 04/28/17 12/11/18 ascorbic acid (vitamin C) [Vitamin 1,000 mg PO DAILY 07/18/17 12/11/18 C] Eliquis 5 mg PO BID 30 Days #60 tab 02/24/18 12/11/18 Rosuvastatin Calcium 40 mg PO DAILY 05/09/18 12/11/18 biotin 1 tab PO DAILY 06/05/18 12/11/18 clopidogrel [Plavix] 75 mg PO DAILY 07/24/18 12/11/18 amitriptyline 25 mg PO HS PRN 09/07/18 12/11/18 hydrocodone 5 mg-acetaminophen 325 1 tab PO Q6H 10/02/18 12/11/18 mg tablet magnesium 500 mg PO DAILY 10/06/18 12/11/18 amiodarone 400 mg PO DAILY 11/21/18 12/11/18 colchicine 0.6 mg PO BID 11/21/18 12/11/18 Previous Rx's Medication Instructions Recorded Eliquis 5 mg PO BID 30 Days #60 tab 02/24/18 Allergies Allergy/AdvReac Type Severity Reaction Status Date / Time atorvastatin calcium AdvReac Intermediate liver Unverified 12/11/18 08:57 [From Lipitor] problems niacin AdvReac Mild flushing Unverified 12/11/18 08:57 adhesive from monitor tabs Allergy Intermediate jones Uncoded 12/11/18 08:57 General MARQUIS: 2 Review of Systems Review of Systems Constitutional: denies fevers Eyes: denies eye pain ENT: denies facial pain, dental pain, sore throat Cardiovascular: denies edema, reports chest pain Respiratory: denies SOB, cough GI: denies abdominal pain, vomiting, diarrhea, reports nausea : denies flank pain MSK: denies back pain, neck pain, arthralgias, myalgias Skin: denies rash Neuro: denies headaches, numbness, weakness [facility] Medical History Atrial fibrillation (Chronic) Anemia (Chronic) Back pain, chronic (Chronic) Chest pain (Chronic) Coronary artery disease (Chronic) Depression with anxiety (Chronic) Diverticulosis (Chronic) Duodenal ulcer (Chronic) Dysesthesia (Chronic) Dyslipidemia (Chronic) Dyspepsia (Chronic) Esophagitis (Chronic) Gastritis (Chronic) Hemiplegia (Chronic) History of kidney cancer (Chronic) Hx of adenomatous polyp of colon (Chronic) Ischemic stroke (Chronic) Lipoma of back (Chronic) Occipital headache (Chronic) Pulmonary nodules (Chronic) Sleep apnea (Chronic) Tobacco use (Chronic) Social History Smoking/Tobacco Use Status: Current every day Tobacco Type: cigarettes Alcohol Intake: never Drug use: Never Substance use type: does not use Do you feel safe in your relationship?: Yes Exam Narrative Exam Narrative: Constitutional: well and [id number], pleasant, conversing normally HENT: head atraumatic/normocephalic/normal inspection, mucous membranes moist Eyes: conjunctiva normal, sclera normal, pupils 3mm b/l Neck: no stridor, normal ROM, trachea midline Chest: normal inspection, nontender to palpation Resp: normal work of breathing, LCTAB Cardio: normal rate, normal rhythm, no murmur appreciated GI: abdomen soft, non-tender, non-distended Back: normal inspection, no rash Skin: warm, dry, normal color, no rash Neuro: alert, not altered, grossly non-focal, normal tone Ext: no edema, mild tenderness right posterior calf Psych: normal mood, normal affect, normal behavior
--- NOTE | 2018-12-11 08:28 | DI.RAD_ITS ---
SYMPTOMS/DIAGNOSIS: CHEST PAIN CHEST X-RAY, FRONTAL AND LATERAL VIEWS: Comparisons are 09/07/18 and 09/18/18. There is poor inspiration. The cardiac silhouette is stable, as is the pulmonary vasculature. There are increased lung markings seen in the left base. This may represent atelectasis or pneumonia. No effusions or pneumothoraces are identified. The bones appear intact. IMPRESSION: Left basilar infiltrate. This may represent atelectasis or pneumonia.
[2018-12-11 08:44] LABS: Abs Immature Grans 0.03 k/cumm (0.0-0.09); Absolute Basophil Count 0.04 k/cumm (0.0-0.2); Absolute Eosinophil Count 0.11 k/cumm (0.0-0.7); Absolute Lymphocyte Count 1.79 k/cumm (1.2-3.4); Absolute Monocyte Count 0.55 k/cumm (0.11-0.7); Absolute Neutrophil Count 6.82 k/cumm (1.2-6.7); Basophils % 0.4; Eosinophils % 1.2; HCT 40.3 % (40.0-50.0); HGB 13.6 g/dL (13.5-17.5); Immature Grans % 0.3; Lymphocytes % 19.2; Mean Corp. HGB Concentration 33.7 g/dL (32.0-36.0); Mean Corpuscular Volume 91.8 fL (80-95); Mean Platelet Volume 9.3 fL (8.0-11.0); Monocytes % 5.9; Platelet Count 270 x1000/uL (130-400); RBC 4.39 m/cumm (4.50-6.00); RBC Distribution Width 13.9 % (11.8-14.1); White Blood Cell Count 9.34 k/cumm (4.4-10.8)
[2018-12-11] MEDS: Normal Saline 1,000 ML 125 ML IV (09:00)
[2018-12-11 09:14] LABS: ALT 25 U/L (12-78); AST 18 U/L (15-37); Albumin 3.5 g/dL (3.4-5.0); Alkaline Phosphatase 83 U/L (46-116); Anion Gap 8.8 mmol/L (3-11); BUN 17 mg/dL (7-18); Bilirubin, Total 0.2 mg/dL (0.2-1.0); CO2 26.2 mmol/L (21.0-32.0); CREATININE 1.13 mg/dL (0.70-1.30); Calcium 8.9 mg/dL (8.5-10.1); Chloride 103 mmol/L (98-107); Glucose 100 mg/dL (70-100); Magnesium 1.9 mg/dL (1.8-2.4); NT-proBNP 69 pg/mL; Potassium 4.3 mmol/L (3.5-5.1); Sodium 138 mmol/L (136-145); Total Protein 7.3 g/dL (6.4-8.2)
[2018-12-11 09:17] LABS: Troponin I < 0.02 ng/mL (0.00-0.06)
[2018-12-11 09:21] LABS: D-Dimer 370 ng/mlFEU (<500)
[2018-12-11 12:00] LABS: Troponin I < 0.02 ng/mL (0.00-0.06)
[2018-12-11 15:07] LABS: Troponin I < 0.02 ng/mL (0.00-0.06)
--- NOTE | 2018-12-12 06:31 | PDOC.ERCMPRO ---
Care Management Progress Note 12/12-Met with Adams to discuss Palliative Care Consult. Adams had 21 ED visits in 2018 and 7 visits this year. Discussed how Palliative Care could help him live with his chronic chest pain. Adams was in agreement with a Palliative Care Referral. Discussed with Dr. Tigre Barton who has entered a Palliative Consult. Consult faxed to Palliative Care this am.
== END 2018-12-11 15:54 | disposition home or self-care (01) ==
PROVIDERS: Emergency Provider Student in an Organized Health Care Education/Training Program; PCP Internal Medicine
DX: R07.9 Chest pain, unspecified (principal); I48.91 Unspecified atrial fibrillation; Z95.5 Presence of coronary angioplasty implant and graft; I25.10 Atherosclerotic heart disease of native coronary artery without angina pectoris; F17.210 Nicotine dependence, cigarettes, uncomplicated; Z79.01 Long term (current) use of anticoagulants
CPT/HCPCS: 36415; 80053; 93005; 96360; 96361; 99285; 71045; 83735; 83880; 84484; 85025; 85379; 93010; 99284

== ENCOUNTER 2018-12-14 01:48 | Outpatient (CLI) | payer BC, SELFPAY ==
--- NOTE | 2018-12-14 07:59 | DI.CT_ITS ---
SYMPTOMS/DIAGNOSIS: RENAL CELL CARCINOMA OF LT KIDNEY, S/P PARTIAL NEPHRECTOMY, C64.2 CT SCAN OF THE ABDOMEN AND PELVIS: The study was carried out according to the usual protocol with an intravenous administration of 100 cc's of Omnipaque 350 and oral ingestion of dilute barium. There are small regions of dependent atelectasis involving the lung bases. There is no pleural effusion. The heart is not enlarged. The liver and gallbladder are normal. There is no evidence of gallstones or biliary dilatation. The pancreas, spleen, and adrenals are normal. The patient is status post partial left nephrectomy. There is no evidence a mass or hydronephrosis. The right kidney is unremarkable. There is no evidence of bowel obstruction. There is nothing to suggest an acute appendix. There are diffuse diverticular changes involving the rectosigmoid colon with scattered proximal diverticula identified. The bladder is intact. The reproductive organs as visualized appear intact. A very small fat containing inguinal hernia is apparent. There is no evidence of a mass or adenopathy in the abdomen or pelvis. There is no evidence of free fluid. There are atherosclerotic changes involving the aorta without evidence of an aneurysm. Degenerative changes are demonstrated throughout the lumbar spine with note made of narrowed vacuum discs at L 1 - 2, L 2 - 3, L 3 - 4 and L 4 - 5. Associated degenerative bony changes are evident. There is no evidence of a localized area of osteolysis, osteosclerosis or bony expansion. SUMMARY: The patient is status post partial left nephrectomy. There is no evidence of hydronephrosis. There is no mass. There is no evidence of adenopathy. Incidental note is made of diverticulosis without evidence of diverticulitis.
[2018-12-14] MEDS: Omnipaque 350 MG/ML 100 ML BTL IJ (09:49)
[2018-12-14] MEDS: Breeza Beverage 473 ML BTL PO ×2 (09:50→09:53)
[2018-12-14] MEDS: Omnipaque 350 MG/ML 50 ML BTL PO (09:52)
== END 2018-12-14 02:08 ==
PROVIDERS: PCP Internal Medicine; Visit Provider Urology
DX: C64.2 Malignant neoplasm of left kidney, except renal pelvis (principal); J98.11 Atelectasis; K57.30 Diverticulosis of large intestine without perforation or abscess without bleeding; Z90.5 Acquired absence of kidney
CPT/HCPCS: 74177; J3490; Q9967

== ENCOUNTER 2018-12-18 13:08 | Outpatient (REF) | payer BC, SELFPAY ==
[2018-12-18 21:23] LABS: FREE T4 1.14 ng/dL (0.76-1.46); TSH 1.27 uIU/mL (0.358-3.74)
== END 2018-12-18 13:28 ==
LOC: NCHCN 13:08
PROVIDERS: PCP Internal Medicine; Visit Provider Internal Medicine
DX: R53.83 Other fatigue (principal); R11.0 Nausea; R06.02 Shortness of breath; F17.200 Nicotine dependence, unspecified, uncomplicated; R10.13 Epigastric pain; R19.7 Diarrhea, unspecified
CPT/HCPCS: 82565; 84439; 84443

== ENCOUNTER 2018-12-19 09:04 | Outpatient (REF) | payer BC, SELFPAY | END 2018-12-19 09:24 | LOC: NCHCN 09:04 | PROVIDERS: PCP Internal Medicine; Visit Provider Internal Medicine | DX: R10.84 Generalized abdominal pain (principal); R11.0 Nausea; R10.13 Epigastric pain; R19.7 Diarrhea, unspecified; R53.83 Other fatigue | CPT/HCPCS: 87329; 82272; 83630 ==

== ENCOUNTER 2018-12-29 03:06 | Outpatient (CLI) | payer BC, SELFPAY | END 2018-12-29 03:26 | PROVIDERS: PCP Internal Medicine; Visit Provider Internal Medicine | DX: R69 Illness, unspecified (principal) ==

== ENCOUNTER 2019-01-05 10:21 | Outpatient (CLI) | payer BC, SELFPAY | END 2019-01-05 10:41 | PROVIDERS: PCP Internal Medicine; Visit Provider Internal Medicine Cardiovascular Disease | DX: I48.0 Paroxysmal atrial fibrillation (principal); I25.10 Atherosclerotic heart disease of native coronary artery without angina pectoris; Z72.0 Tobacco use | CPT/HCPCS: 93005; 93010 ==

== ENCOUNTER 2019-01-06 10:37 | Emergency (ER) | payer BC, SELFPAY ==
[2019-01-06 10:40] VITALS: BP 130/92; PULSE 91; RESP 14; TEMP 36.6; O2SAT 98
--- NOTE | 2019-01-06 10:51 | W.ED.GENAD ---
Discharge Plan Disposition Patient Disposition: HOME Condition: Good Discharge Details Chief Complaint: Laceration Clinical Impression: Abrasion Primary Care Provider: Delonte Corral ED Provider: Fareed Guido Home Meds and New Rx's Prescriptions: No Action hydrocodone-acetaminophen 5-325 mg tablet 1 tab PO Q6H RF: 0 ascorbic acid (vitamin C) [Vitamin C] 1,000 MG tablet 1,000 mg PO DAILY RF: 0 Eliquis 5 MG tablet 5 mg PO BID 30 Days Qty: 60 RF: 4 lansoprazole [Prevacid SoluTab] 30 MG tablet,disintegrat, delay rel 30 mg PO DAILY RF: 0 nitroglycerin [Nitrostat] 0.4 MG tablet, sublingual 1 tab Sublingual Q5 MIN PRN X3 PRNRF: 0 bupropion HCl 150 MG tablet extended release 12 hr 300 mg PO DAILY RF: 0 isosorbide mononitrate 120 MG tablet extended release 24 hr 120 mg PO DAILY RF: 0 multivitamin 1 EACH capsule 1 ea PO DAILY RF: 0 magnesium 250 mg Tablet 500 mg PO DAILY RF: 0 Rosuvastatin Calcium 40 MG tablet 40 mg PO DAILY RF: 0 biotin 800 mcg Tablet 1 tab PO DAILY RF: 0 clopidogrel [Plavix] 75 mg Tablet 75 mg PO DAILY RF: 0 amitriptyline 25 mg Tablet 25 mg PO HS PRNRF: 0 amiodarone 400 mg Tablet 400 mg PO DAILY RF: 0 colchicine 0.6 mg Capsule 0.6 mg PO BID RF: 0 Discharge Instructions Additional Instructions: Please change the gauze twice daily. Use a nonadhesive gauze, bacitracin, and the white gauze as directed. I do expect some continued very mild bleeding secondary to all your blood thinner use, however this should stop within the next 24-48 hours. If you notice continued bleeding, worsening of your pain, redness, warmth, or purulent drainage, please return immediately for reevaluation. If you notice any worsening of your symptoms, or any new symptoms such as vomiting, diarrhea, fever, chills, shortness of breath, chest pain, numbness, weakness, or fainting , please return immediately to the emergency department for reevaluation. Please follow up with your primary care provider as soon as possible for reassessment and reevaluation. As always, it was a pleasure participating in your medical care today. Referrals: Delonte Corral MD [Primary Care Provider] - Medical Decision Making This is a pleasant 53-year-old male with a litany of cardiac problems, because of which he is on Eliquis, and Plavix. He presents today for fingertip injury on the left fifth digit at the distal tip. He is ambidextrous. Tetanus was updated in 2017. Exam demonstrates no evidence of tendon abnormality, laxity, significant swelling, or subungual hematoma. There is small skin abrasions and skin removals on the superficial layers. No evidence of deep tissue involvement. No evidence of laceration. With no signs of an open injury, there is no concern for an open fracture requiring antibiotics. Exam demonstrates minimal tenderness otherwise. 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 Patient has requested to hold off on any additional imaging at this time. Excess skin was removed, the area was cleansed and scrubbed vigorously with chlorhexidine and normal saline. After all dirt particles were removed bacitracin was applied, followed by nonadhesive gauze and dressing. No significant active bleeding. Patient tolerated this well and was then placed in a splint. Discussed red flags which to return, the importance of twice daily dressing changes, and the importance of close follow-up and splint use. No active bleeding at this time I do not think that there is indication for silver nitrate application or Surgicel application. I have extensively reviewed the treatment plan and discharge instructions with the patient. I have addressed all patient concerns at this time. The patient was made aware of what symptoms to monitor for that would warrant a return to the emergency department. Discussed the plan with the patient, they demonstrate verbal understanding and agreement with our assessment and plan at this time. HPI General Date/Time Provider Initiated Documentation: 01/06/19 10:38. HPI Narrative: This is a 53-year-old male with an extensive cardiac history of multiple cardiac stents, ablations, on amiodarone, Eliquis, and Plavix. He is ambidextrous. He presents today for evaluation of injury to his left fifth digit. He is working today on his finger got caught between a sledgehammer and the table. It happened 2 hours prior to arrival. There was some avulsion of the superficial skin at the fingertip, and after he controlled the bleeding with his own bandaging, he eventually came in for further evaluation. He denies any numbness or tingling. There is mild pain in the distal tip of his finger, however because of his blood thinner use he felt it was best to come in and be seen and evaluated. He denies any limitations from movement, and states that movement and sensation is normal and unchanged. He denies any other complaints at this time. Tetanus was last updated in 2017. Related Data Home Medications Medication Instructions Recorded Confirmed lansoprazole [Prevacid SoluTab] 30 mg PO DAILY 06/18/13 01/05/19 nitroglycerin [Nitrostat] 1 tab SUBLINGUAL Q5 MIN PRN X3 PRN 10/17/13 01/05/19 bupropion HCl 300 mg PO DAILY 10/16/15 01/05/19 isosorbide mononitrate 120 mg PO DAILY 10/16/15 01/05/19 multivitamin 1 ea PO DAILY 04/28/17 01/05/19 ascorbic acid (vitamin C) [Vitamin 1,000 mg PO DAILY 07/18/17 01/05/19 C] Eliquis 5 mg PO BID 30 Days #60 tab 02/24/18 01/05/19 Rosuvastatin Calcium 40 mg PO DAILY 05/09/18 01/05/19 biotin 1 tab PO DAILY 06/05/18 01/05/19 clopidogrel [Plavix] 75 mg PO DAILY 07/24/18 01/05/19 amitriptyline 25 mg PO HS PRN 09/07/18 01/05/19 hydrocodone 5 mg-acetaminophen 325 1 tab PO Q6H 10/02/18 01/05/19 mg tablet magnesium 500 mg PO DAILY 10/06/18 01/05/19 amiodarone 400 mg PO DAILY 11/21/18 01/05/19 colchicine 0.6 mg PO BID 11/21/18 01/05/19 Previous Rx's Medication Instructions Recorded Eliquis 5 mg PO BID 30 Days #60 tab 02/24/18 Allergies Allergy/AdvReac Type Severity Reaction Status Date / Time atorvastatin calcium AdvReac Intermediate liver Unverified 01/05/19 10:38 [From Lipitor] problems niacin AdvReac Mild flushing Unverified 01/05/19 10:38 adhesive from monitor tabs Allergy Intermediate jones Uncoded 01/05/19 10:38 General Stated Complaint: Laceration MARQUIS: 4 Review of Systems Review of Systems All systems reviewed & are unremarkable except as noted in HPI and below [facility] Social History Smoking/Tobacco Use Status: Current every day Tobacco Type: cigarettes Alcohol Intake: never Drug use: Never Substance use type: does not use Do you feel safe at home: Yes Do you feel safe in your relationship?: Yes Exam Narrative Exam Narrative: 1.Const: Well-nourished, Well-developed, appearing stated age 2.Eyes: PERRL, no conjunctival injection, and symmetrical lids. 3.ENT: Atraumatic external nose and ears. Moist MM. Neck: Symmetric, trachea midline, No thyromegaly. 4.CVS: +S1/S2, No murmurs or gallops. Peripheral pulses 2+ and equal in all extremities. Brisk capillary refill in all extremities. 5.RESP: Unlabored respiratory effort. Clear to auscultation bilaterally. No wheezes rales or rhonchi 6.GI: Soft, Nontender/Nondistended, No hepatosplenomegaly. No guarding or rebound. 7.MSK: Normocephalic, Extremities w/o deformity. No cyanosis or clubbing, Normal movement of all extremities. Focused left hand exam: Patient demonstrates evidence of mild contusion to the distal fingertip on the fifth digit. No evidence of subungual hematoma, normal flexion and extension at the fingertip, no evidence of weakness or deformity for any of the flexor or extensor tendons. There is evidence of mild superficial skin abrasions, these are present on the palmar pulp aspect of the fingertip. No evidence of laceration, or deep tissue involvement. Appears that only a small component of the superficial skin has been removed. No evidence of open laceration. Less than 3 mm sensation is intact on two-point discrimination distal to the injury site. Capillary refill is brisk. No other abnormalities. The remainder of the patient's hand is otherwise benign and atrial 8.Skin: Warm, Dry. No rashes or lesions. 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 Sensation grossly intact, no focal neurologic deficits. 10.Psych: (AAO) x3. Appropriate mood and affect Course Vital Signs Temperature 36.6 C 01/06/19 10:40 Pulse 91 H 01/06/19 10:40 Respiratory Rate 14 01/06/19 10:40 Pulse Oximetry 98 01/06/19 10:40 Temperature 36.6 C 01/06/19 10:40 Temperature Source Temporal Artery Scan 01/06/19 10:40 Pulse 91 H 01/06/19 10:40 Respiratory Rate 14 01/06/19 10:40 Blood Pressure Position Sitting 01/06/19 10:40 Pulse Oximetry 98 01/06/19 10:40 Oxygen Delivery Method Room Air 01/06/19 10:40 Oxygen Flow Rate 0 01/06/19 10:40 Pain Level 0 01/06/19 10:40
== END 2019-01-06 10:55 | disposition home or self-care (01) ==
PROVIDERS: Emergency Provider Student in an Organized Health Care Education/Training Program; PCP Internal Medicine
DX: S60.417A Abrasion of left little finger, initial encounter (principal); W27.0XXA Contact with workbench tool, initial encounter; Z79.01 Long term (current) use of anticoagulants
CPT/HCPCS: 99282

== ENCOUNTER 2019-03-22 01:46 | Outpatient (CLI) | payer BC, SELFPAY ==
--- NOTE | 2019-03-22 | PFT_ITS ---
PULMONARY FUNCTION TEST REPORT Patient - [facility] DATE OF SERVICE March 22, 2019 REQUESTING PROVIDER Delonte Corral M.D. INTERPRETATION OF STUDY Spirometry shows no evidence of obstructive airways disease. No bronchodilator response. LUNG VOLUMES - Lung volumes show no evidence of restriction. DIFFUSION CAPACITY- Mildly reduced even when corrected to alveolar volume. AIRWAY RESISTANCE - Normal. IMPRESSION Overall no evidence of obstructive airways disease. There is mild diffusion defect even when corrected to alveolar volume. As an isolated finding, this can be associated with developing pulmonary hypertension or developing interstitial lung disease, therefore clinical correlation recommended. When this study was compared to previous one from 05/02/2017, the patient has a somewhat improved diffusion capacity over this time period, FVC has been stable. FEV1 has also been stable. Alyssa Simon M.D. [place]/ T- 03/22/2019
== END 2019-03-22 02:06 ==
PROVIDERS: PCP Internal Medicine; Visit Provider Internal Medicine
DX: R06.09 Other forms of dyspnea (principal); F17.210 Nicotine dependence, cigarettes, uncomplicated
CPT/HCPCS: 94150; 94726; 94729; 94010

== ENCOUNTER 2019-04-01 12:41 | Emergency (ER) | payer BC, SELFPAY ==
[2019-04-01] VITALS (11 sets, daily range): BP systolic 101–118; BP diastolic 58–78; PULSE 64–71; RESP 16; TEMP 36.5; O2SAT 94–96
--- NOTE | 2019-04-01 13:04 | DI.CT_ITS ---
SYMPTOM/DIAGNOSIS: HX HERNIA REPAIR, BILAT LOWER ABD PAIN ABDOMEN AND PELVIC CT: 04/01 CT examination of the abdomen and pelvis was performed with a bolus infusion of 100 cc Omnipaque 350 and ingestion of dilute barium. Images obtained through the lung bases were unremarkable. Liver, spleen and pancreas appear normal. Gallbladder and bile ducts are CT normal. Adrenals appear normal bilaterally. Right kidney unremarkable in appearance. Partial left nephrectomy noted, reportedly for renal cell carcinoma. No additional urinary tract abnormality seen. Urinary bladder is essentially collapsed. Appendix not specifically visualized but there is no evidence of appendicitis. No abdominal or pelvic adenopathy seen. Tiny fat containing umbilical and bilateral inguinal hernias noted. There is wall thickening and pericolonic fat edema of the mid to distal sigmoid colon consistent with acute diverticulitis. No evidence of perforation. No abscess formation seen. CONCLUSION: Findings consistent with acute sigmoid diverticulitis.
[2019-04-01 13:29] LABS: Bilirubin Negative (Negative); Blood Negative (Negative); Clarity Clear (Clear); Glucose Negative (Negative); Ketones Negative (Negative); Leukocyte Esterase Negative (Negative); Nitrite Negative (Negative); Specific Gravity 1.015 (1.005-1.025); Urobilinogen 0.2 EU/dL (Up TO 0.2)
[2019-04-01 13:32] LABS: Abs Immature Grans 0.03 k/cumm (0.0-0.09); Absolute Eosinophil Count 0.11 k/cumm (0.0-0.7); Absolute Lymphocyte Count 2.52 k/cumm (1.2-3.4); Absolute Monocyte Count 1.13 k/cumm (0.11-0.7); Absolute Neutrophil Count 9.32 k/cumm (1.2-6.7); Basophils % 0.2; Eosinophils % 0.8; HCT 39.6 % (40.0-50.0); HGB 13.7 g/dL (13.5-17.5); Immature Grans % 0.2; Lymphocytes % 19.2; Mean Corp. HGB Concentration 34.6 g/dL (32.0-36.0); Mean Corpuscular Hemoglobin 31.5 pg (27.0-33.0); Mean Platelet Volume 9.5 fL (8.0-11.0); Monocytes % 8.6; Platelet Count 284 x1000/uL (130-400); RBC 4.35 m/cumm (4.50-6.00); White Blood Cell Count 13.13 k/cumm (4.4-10.8)
[2019-04-01 13:34] LABS: Absolute Basophil Count 0.03 k/cumm (0.0-0.2)
[2019-04-01 13:47] LABS: ALT 21 U/L (12-78); AST 10 U/L (15-37); Albumin 3.5 g/dL (3.4-5.0); Alkaline Phosphatase 90 U/L (46-116); Anion Gap 9.6 mmol/L (3-11); BUN 16 mg/dL (7-18); Bilirubin, Total 0.5 mg/dL (0.2-1.0); CO2 27.4 mmol/L (21.0-32.0); CREATININE 1.21 mg/dL (0.70-1.30); Calcium 8.9 mg/dL (8.5-10.1); Chloride 101 mmol/L (98-107); Glucose 87 mg/dL (70-100); Lipase 105 U/L (73-393); Potassium 3.8 mmol/L (3.5-5.1); Sodium 138 mmol/L (136-145); Total Protein 7.1 g/dL (6.4-8.2)
--- NOTE | 2019-04-01 14:14 | W.ED.GENAD ---
Discharge Plan Disposition Patient Disposition: HOME Condition: Good Discharge Details Chief Complaint: Abd Prob Clinical Impression: Diverticulitis Primary Care Provider: Delonte Corral ED Provider: Fareed Guido Home Meds and New Rx's Prescriptions: New amoxicillin-pot clavulanate [Augmentin] 875-125 mg tablet 1 tab PO BID 10 Days Qty: 20 RF: 0 acetaminophen [Mapap Extra Strength] 500 MG tablet 1,000 mg PO Q6H 5 Days Qty: 60 RF: 0 No Action hydrocodone-acetaminophen 5-325 mg tablet 1 tab PO Q6H RF: 0 ascorbic acid (vitamin C) [Vitamin C] 1,000 MG tablet 1,000 mg PO DAILY RF: 0 Eliquis 5 MG tablet 5 mg PO BID 30 Days Qty: 60 RF: 4 lansoprazole [Prevacid SoluTab] 30 MG tablet,disintegrat, delay rel 30 mg PO DAILY RF: 0 nitroglycerin [Nitrostat] 0.4 MG tablet, sublingual 1 tab Sublingual Q5 MIN PRN X3 PRNRF: 0 bupropion HCl 150 MG tablet extended release 12 hr 300 mg PO DAILY RF: 0 isosorbide mononitrate 120 MG tablet extended release 24 hr 120 mg PO DAILY RF: 0 multivitamin 1 EACH capsule 1 ea PO DAILY RF: 0 magnesium 250 mg Tablet 500 mg PO DAILY RF: 0 sertraline 100 mg Tablet 100 mg PO DAILY RF: 0 Rosuvastatin Calcium 40 MG tablet 40 mg PO DAILY RF: 0 biotin 800 mcg Tablet 1 tab PO DAILY RF: 0 clopidogrel [Plavix] 75 mg Tablet 75 mg PO DAILY RF: 0 amitriptyline 25 mg Tablet 25 mg PO HS PRNRF: 0 colchicine 0.6 mg Capsule 0.6 mg PO BID RF: 0 Discharge Instructions Instructions: Diverticulitis (ED) Additional Instructions: You have diverticulitis. This was confirmed on your CT scan. Please take the antibiotic, Augmentin, twice daily as directed. Please take maximum dose Tylenol at 1000 mg every 6 hours as needed for pain. Please stick with an easy diet of soft foods and liquid foods with nothing spicy or greasy. If you notice any worsening of your symptoms, or any new symptoms such as vomiting, diarrhea, fever, chills, shortness of breath, chest pain, numbness, weakness, or fainting , please return immediately to the emergency department for reevaluation. Please follow up with your primary care provider as soon as possible for reassessment and reevaluation. As always, it was a pleasure participating in your medical care today. Referrals: Delonte Corral MD [Primary Care Provider] - Medical Decision Making This is a 53-year-old male with a past medical history of inguinal hernias and subsequent surgical resolution. He presents today with bilateral lower inguinal pain for the last 2 days, he has had continued bowel movements, with no blood. He did have an episode of vomiting yesterday, since then has not eaten any solid foods, only liquid foods. Exam demonstrates lower abdominal tenderness, no testicular tenderness. He does incidentally have a small mass on the spermatic cord, which I suspect is a spermatocele. Differential includes colitis, diverticulitis, or postoperative pain. We will rehydrate, get a CT scan to rule out acute process and reassess. 3:32 PM Patient's laboratory work-up has returned, minimal white count at 13, no bandemia, minimal left shift. Electrolytes normal, renal function stable, urinalysis negative for acute process. CT results per Dr. Swanson have returned demonstrating diverticulitis of the distal sigmoid, mild fat edema around the sigmoid. No evidence of abscess or free air. On reassessment the patient's vital signs remained stable, pain is managed. He is able to tolerate p.o. and has done so here. I discussed admission versus discharge, as clinically the patient looks appropriate for discharge, patient states that he feels comfortable with this. Because of his amiodarone use we will prescribe Augmentin for his mild diverticulitis. We will get the first dose here and a prescription for home use. Discussed red flags which to return, the importance of close PCP follow-up. I have extensively reviewed the treatment plan and discharge instructions with the patient. I have addressed all patient concerns at this time. The patient was made aware of what symptoms to monitor for that would warrant a return to the emergency department. Discussed the plan with the patient, they demonstrate verbal understanding and agreement with our assessment and plan at this time. HPI General Date/Time Provider Initiated Documentation: 04/01/19 12:46. HPI Narrative: This is a 49-year-old male with a past medical history of renal cancer, atrial fibrillation, coronary artery disease, currently on Eliquis and Plavix, who presents today for evaluation of abdominal pain. He has a past surgical history of bilateral inguinal hernia repairs with 3 total operations. These were performed in the distant past. Patient states that since yesterday he has had bilateral inguinal/lower abdominal pain in the regions where his hernia was repaired. He states that yesterday he had a large bowel movement, then since then he has been having small pencil thin bowel movements. He did have one episode of vomiting yesterday, and is only been able to tolerate liquids since then. He states that the pain is present bilaterally, with some radiation towards his back. He denies any genital pain, dysuria, hematuria, or increase in urinary frequency. He denies any hematochezia, melena, or acholic stool. He denies any other complaints or modifying factors at this time. Related Data Home Medications Medication Instructions Recorded Confirmed lansoprazole [Prevacid SoluTab] 30 mg PO DAILY 06/18/13 04/01/19 nitroglycerin [Nitrostat] 1 tab SUBLINGUAL Q5 MIN PRN X3 PRN 10/17/13 04/01/19 bupropion HCl 300 mg PO DAILY 10/16/15 04/01/19 isosorbide mononitrate 120 mg PO DAILY 10/16/15 04/01/19 multivitamin 1 ea PO DAILY 04/28/17 04/01/19 ascorbic acid (vitamin C) [Vitamin 1,000 mg PO DAILY 07/18/17 04/01/19 C] Eliquis 5 mg PO BID 30 Days #60 tab 02/24/18 04/01/19 Rosuvastatin Calcium 40 mg PO DAILY 05/09/18 04/01/19 biotin 1 tab PO DAILY 06/05/18 04/01/19 clopidogrel [Plavix] 75 mg PO DAILY 07/24/18 04/01/19 amitriptyline 25 mg PO HS PRN 09/07/18 04/01/19 hydrocodone 5 mg-acetaminophen 325 1 tab PO Q6H 10/02/18 04/01/19 mg tablet magnesium 500 mg PO DAILY 10/06/18 04/01/19 colchicine 0.6 mg PO BID 11/21/18 01/19/19 acetaminophen [Mapap Extra 1,000 mg PO Q6H 5 Days #60 tab 04/01/19 Strength] amoxicillin-pot clavulanate 1 tab PO BID 10 Days #20 tab 04/01/19 [Augmentin] sertraline 100 mg PO DAILY 04/01/19 04/01/19 Previous Rx's Medication Instructions Recorded Eliquis 5 mg PO BID 30 Days #60 tab 02/24/18 acetaminophen [Mapap Extra 1,000 mg PO Q6H 5 Days #60 tab 04/01/19 Strength] amoxicillin-pot clavulanate 1 tab PO BID 10 Days #20 tab 04/01/19 [Augmentin] Allergies Allergy/AdvReac Type Severity Reaction Status Date / Time atorvastatin calcium AdvReac Intermediate liver Unverified 04/01/19 12:50 [From Lipitor] problems niacin AdvReac Mild flushing Unverified 04/01/19 12:50 adhesive from monitor tabs Allergy Intermediate jones Uncoded 04/01/19 12:50 General Stated Complaint: Abd Prob MARQUIS: 3 Review of Systems Review of Systems All systems reviewed & are unremarkable except as noted in HPI and below PFSH Social History Smoking/Tobacco Use Status: Current every day Tobacco Type: cigarettes Alcohol Intake: never Drug use: Never Substance use type: does not use Do you feel safe at home: Yes Do you feel safe in your relationship?: Yes Exam Narrative Exam Narrative: 1.Const: Well-nourished, Well-developed, appearing stated age 2.Eyes: PERRL, no conjunctival injection, and symmetrical lids. 3.ENT: Atraumatic external nose and ears. Moist MM. Neck: Symmetric, trachea midline, No thyromegaly. 4.CVS: +S1/S2, No murmurs or gallops. Peripheral pulses 2+ and equal in all extremities. Brisk capillary refill in all extremities. 5.RESP: Unlabored respiratory effort. Clear to auscultation bilaterally. No wheezes rales or rhonchi 6.GI: Soft, Nondistended, No hepatosplenomegaly. No guarding or rebound. Mild tenderness in the lower abdominal regions bilaterally and over his previous inguinal hernia scars. Bowel sounds are present. Testicular exam demonstrates no significant testicular tenderness, normal cremasteric reflex bilaterally. He does have a small mass proximally to the right testicle, suspect spermatocele. Minimally tender, but the patient states that this is unrelated to his other abdominal pain. 7.MSK: Normocephalic/Atraumatic, Extremities w/o deformity or ttp No cyanosis or clubbing, Normal movement of all extremities 8.Skin: Warm, Dry. No rashes or lesions. 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 Sensation grossly intact, no focal neurologic deficits. 10.Psych: (AAO) x3. Appropriate mood and affect Course Vital Signs Temperature 36.5 C 04/01/19 12:47 Pulse 71 04/01/19 12:47 Respiratory Rate 16 04/01/19 12:47 Blood Pressure 104/58 L 04/01/19 12:47 Pulse Oximetry 96 04/01/19 12:47 Temperature 36.5 C 04/01/19 12:47 Temperature Source Temporal Artery Scan 04/01/19 12:47 Pulse 71 04/01/19 12:47 Respiratory Rate 16 04/01/19 12:47 Respiratory Effort Non-Labored 04/01/19 12:49 Blood Pressure 104/58 L 04/01/19 12:47 Blood Pressure Position Sitting 04/01/19 12:47 Pulse Oximetry 96 04/01/19 12:47 Oxygen Delivery Method Room Air 04/01/19 12:47 Oxygen Flow Rate 0 04/01/19 12:47 Pain Level 10 04/01/19 12:47 Lab/Test Results Lab/Test Results: Laboratory Tests Range/Units 04/01/19 04/01/19 04/01/19 13:15 13:15 13:15 WBC (4.4-10.8) k/cumm 13.13 H RBC (4.50-6.00) m/cumm 4.35 L Hgb (13.5-17.5) g/dL 13.7 Hct (40.0-50.0) % 39.6 L MCV (80-95) fL 91.0 MCH (27.0-33.0) pg 31.5 MCHC (32.0-36.0) g/dL 34.6 RDW (11.8-14.1) % 14.0 Plt Count (130-400) x1000/uL 284 MPV (8.0-11.0) fL 9.5 Immature Gran % 0.2 Neutrophils % 71.0 Lymphocytes % 19.2 Monocytes % 8.6 Eosinophils % 0.8 Basophils % 0.2 Absolute Neutrophils (1.2-6.7) k/cumm 9.32 H Absolute Lymphocytes (1.2-3.4) k/cumm 2.52 Absolute Monocytes (0.11-0.7) k/cumm 1.13 H Absolute Eosinophils (0.0-0.7) k/cumm 0.11 Absolute Basophils (0.0-0.2) k/cumm 0.03 Sodium (136-145) mmol/L 138 Potassium (3.5-5.1) mmol/L 3.8 Chloride (98-107) mmol/L 101 Carbon Dioxide (21.0-32.0) mmol/L 27.4 Anion Gap (3-11) mmol/L 9.6 BUN (7-18) mg/dL 16 Creatinine (0.70-1.30) mg/dL 1.21 Estimated GFR/1.73 m2 (mL/min/1.73m2) >= 60.00 Glucose (70-100) mg/dL 87 Calcium (8.5-10.1) mg/dL 8.9 Total Bilirubin (0.2-1.0) mg/dL 0.5 AST (15-37) U/L 10 L ALT (12-78) U/L 21 Alkaline Phosphatase (46-116) U/L 90 Total Protein (6.4-8.2) g/dL 7.1 Albumin (3.4-5.0) g/dL 3.5 Lipase (73-393) U/L 105 Urine Color (Yellow) Yellow Urine Clarity (Clear) Clear Urine pH (5-8) 7.0 Ur Specific [place] (1.005-1.025) 1.015 Urine Protein (Negative) mg/dL Negative Urine Ketones (Negative) mg/dL Negative Urine Blood (Negative) Negative Urine Nitrite (Negative) Negative Urine Bilirubin (Negative) Negative Urine Urobilinogen (Up TO 0.2) EU/dL 0.2 Ur Leukocyte Esterase (Negative) Negative Urine Glucose (Negative) mg/dL Negative
[2019-04-01] MEDS: Normal Saline Flush 10 ML SYR IVP (14:32)
[2019-04-01] MEDS: Omnipaque 350 MG/ML 100 ML BTL IJ (14:40)
[2019-04-01] MEDS: Omnipaque 350 MG/ML 50 ML BTL PO (14:42)
[2019-04-01] MEDS: Breeza Beverage 473 ML BTL PO ×2 (14:42→14:43)
[2019-04-01] MEDS: MORPHine 10 MG/ML VIAL 4 MG IVP (15:12)
[2019-04-01] MEDS: Normal Saline 1,000 ML 1000 ML IV (15:13)
[2019-04-01] MEDS: Amoxicillin 875/Clav. 125 TAB PO (15:39)
== END 2019-04-01 16:35 | disposition home or self-care (01) ==
PROVIDERS: Emergency Provider Student in an Organized Health Care Education/Training Program; PCP Internal Medicine
DX: K57.30 Diverticulosis of large intestine without perforation or abscess without bleeding (principal); I48.91 Unspecified atrial fibrillation; Z79.01 Long term (current) use of anticoagulants; Z98.890 Other specified postprocedural states
CPT/HCPCS: 80053; 83690; 96361; 96374; 99285; 74177; 81003; 85025; 99284; J2270; J3490; Q9967

== ENCOUNTER 2019-04-17 07:09 | Emergency (ER) | payer BC, SELFPAY ==
[2019-04-17] VITALS (56 sets, daily range): BP systolic 111–156; BP diastolic 66–85; PULSE 55–71; RESP 11–21; TEMP 36.5; O2SAT 92–98
--- NOTE | 2019-04-17 07:31 | ED.GENADUL_ITS ---
Discharge Plan Disposition Patient Disposition: AGAINST MEDICAL ADVICE Condition: Stable Discharge Details Chief Complaint: Chest Pain Clinical Impression: Chest pain at rest Primary Care Provider: Delonte Corral ED Provider: Beata Monroe Home Meds and New Rx's Prescriptions: Continued hydrocodone-acetaminophen 5-325 mg tablet 1 tab PO TID MDD 3 TABS PRNRF: 0 ascorbic acid (vitamin C) [Vitamin C] 1,000 MG tablet 500 mg PO DAILY RF: 0 Eliquis 5 MG tablet 5 mg PO BID 30 Days Qty: 60 RF: 4 lansoprazole [Prevacid SoluTab] 30 MG tablet,disintegrat, delay rel 30 mg PO DAILY RF: 0 nitroglycerin [Nitrostat] 0.4 MG tablet, sublingual 1 tab Sublingual Q5 MIN PRN X3 PRNRF: 0 isosorbide mononitrate 120 MG tablet extended release 24 hr 120 mg PO DAILY RF: 0 multivitamin 1 EACH capsule 1 ea PO DAILY RF: 0 sertraline 100 mg Tablet 50 mg PO DAILY RF: 0 Rosuvastatin Calcium 40 MG tablet 40 mg PO DAILY RF: 0 biotin 800 mcg Tablet 1 tab PO DAILY RF: 0 clopidogrel [Plavix] 75 mg Tablet 75 mg PO DAILY RF: 0 amitriptyline 25 mg Tablet 25 mg PO HS PRNRF: 0 metoprolol succinate 50 mg Capsule,Sprinkle,Er 24hr 25 mg PO DAILY RF: 0 No Action amlodipine 10 mg Tablet 10 mg PO DAILY RF: 0 bupropion HCl 150 mg Tablet Extended Release 24 Hr 300 mg PO DAILY RF: 0 Discharge Instructions Instructions: Chest Pain (ED) Additional Instructions: Call your student ambassador today and follow-up with your scheduled appointment with cardiology on . Return immediately to the emergency department if you develop any worsening or new concerning symptoms. Discharge Data Discharge Date/Time-TO BE ENTERED AT DEPARTURE: 04/17/19 12:54 Discharge Physician: Beata Monroe Medical Decision Making <Vinh Barton MD - Last Filed: 04/28/19 00:20> 7:45 --53-year-old male with multiple medical problems including history of coronary artery disease status post 9 stents, atrial fibrillation status post ablation, on Eliquis and Plavix, esophageal reflux, here with chest discomfort. Pain is currently 8/10. Pain is been persistent for the past 1.5 hours. Consider ACS. ECG was reviewed and interpreted by me at 723: Normal sinus rhythm 66 bpm, normal axis, RSR prime pattern noted, QRS duration of 100, QTc 415, nondiagnostic. No STEMI. Plan to check troponin. Plan to treat with nitroglycerin sublingual and reassess. Of note, patient is prescribed nitroglycerin but did not take any prior to arrival. Consider other etiologies for discomfort including pulmonary embolism. Patient is not tachycardic, not tachypneic and saturating well. I think this is unlikely given he is on Eliquis. Wells criteria is low. Plan to check a d- dimer. Patient does have a history of reflux disease. I will give him a dose of Pepcid 20 mg IV. --Chest x-ray reviewed and interpreted by me: Normal mediastinum, no acute cardiopulmonary disease noted. Official radiology read pending. Patient noted some improvement after his first nitroglycerin sublingual. Plan to continue. Patient noting some headache. Will offer Tylenol. Initial labs reviewed and hypomagnesemia noted. Will give magnesium 1 g. Initial troponin negative. 8:30 --Care signed out to Dr. Monroe. <Beata Monroe DO - Last Filed: 04/18/19 09:00> 0800 -- Please see Dr. Barton's notes for initial presentation, exam and plan. 53-year-old male well-known to the emergency department with a history of coronary artery disease status post 9 stents, atrial fibrillation status post ablation, on Eliquis and Plavix, esophageal reflux here with substernal chest pain that started at rest this morning at 6 AM. He had an implantable loop recorder placed at [facility] last week for 2 episodes of syncope and shaking in his sleep over the past few months. Patient was given 2 nitro and has had complete relief of pain. He states he has had intermittent episodes but denies any pain at present. His EKG noted a rate of 66, sinus with no acute ST-T wave ischemic changes. Case endorsed to follow-up on labs and final disposition. Labs reviewed and unremarkable. Negative d-dimer. Troponin negative. Mag 1.7, repleted. Chest x-ray negative. 1030 -- Patient pain-free at this time. Considering patient's extensive cardiac history, will obtain a second troponin at 1120 and follow-up with [facility] cardiology. 1150 --second troponin negative. Repeat EKG unchanged. Patient admits to intermittent episodes of chest pain but denies any at present. 1230 --Case discussed with [facility] cardiology -recommends transfer for further evaluation considering pain at rest. Currently no beds available and bed may not be available until later this afternoon or tomorrow. Accepting physician Dr. Smith. Would like one dose of aspirin. Case discussed with patient and he is declining transfer at this time. Would rather not wait in the ED for a third troponin. The risks of and disability due to a serious pathology explained to patient fully understands. He demonstrates capacity make decisions. AMA form signed. Patient is advised to call cardiology today and follow-up with his scheduled appointment with cardiology in 2 days and to return here at any time if worse. Medical Records Medical records reviewed: Yes I reviewed the patient's medical records. Imaging Data Radiologic Study: Radiologist's impression: XR Chest, 1 View EXAM DATE/TIME: 04/17/2019 7:35 AM CLINICAL HISTORY: 53 years old, male; Chest pain; Type not specified TECHNIQUE: Imaging protocol: XR of the chest, 1 view. COMPARISON: CR XR PORTABLE CHEST AP 12/11/2018 8:43 AM FINDINGS: Lungs: Unremarkable. No consolidation. Pleural space: Unremarkable. No pleural effusion. No pneumothorax. Heart/Mediastinum: Unremarkable. No cardiomegaly. Bones/joints: Unremarkable. IMPRESSION: No acute findings. Lab Data Lab results reviewed: Yes I reviewed the patient's lab results. Laboratory Tests Range/Units 04/17/19 04/17/19 04/17/19 07:20 07:20 07:20 WBC (4.4-10.8) k/cumm 10.91 H RBC (4.50-6.00) m/cumm 4.49 L Hgb (13.5-17.5) g/dL 13.9 Hct (40.0-50.0) % 41.0 MCV (80-95) fL 91.3 MCH (27.0-33.0) pg 31.0 MCHC (32.0-36.0) g/dL 33.9 RDW (11.8-14.1) % 13.9 Plt Count (130-400) x1000/uL 280 MPV (8.0-11.0) fL 9.7 Immature Gran % 0.2 Neutrophils % 71.2 Lymphocytes % 19.2 Monocytes % 6.4 Eosinophils % 2.7 Basophils % 0.3 Absolute Neutrophils (1.2-6.7) k/cumm 7.77 H Absolute Lymphocytes (1.2-3.4) k/cumm 2.09 Absolute Monocytes (0.11-0.7) k/cumm 0.70 Absolute Eosinophils (0.0-0.7) k/cumm 0.29 Absolute Basophils (0.0-0.2) k/cumm 0.03 PT (9.3-11.0) sec 9.7 INR (0.9-1.1) 1.0 APTT (21.0-31.4) sec 29.6 D-Dimer (<500) ng/mlFEU 352 Sodium (136-145) mmol/L 140 Potassium (3.5-5.1) mmol/L 4.0 Chloride (98-107) mmol/L 104 Carbon Dioxide (21.0-32.0) mmol/L 23.3 Anion Gap (3-11) mmol/L 12.7 H BUN (7-18) mg/dL 16 Creatinine (0.70-1.30) mg/dL 1.00 Estimated GFR/1.73 m2 (mL/min/1.73m2) >= 60.00 Glucose (70-100) mg/dL 140 H Calcium (8.5-10.1) mg/dL 9.0 Magnesium (1.8-2.4) mg/dL 1.7 L Total Bilirubin (0.2-1.0) mg/dL 0.2 AST (15-37) U/L 19 ALT (12-78) U/L 34 Alkaline Phosphatase (46-116) U/L 97 Troponin I (0.00-0.06) ng/mL < 0.05 Total Protein (6.4-8.2) g/dL 7.6 Albumin (3.4-5.0) g/dL 3.5 Range/Units 04/17/19 11:15 WBC (4.4-10.8) k/cumm RBC (4.50-6.00) m/cumm Hgb (13.5-17.5) g/dL Hct (40.0-50.0) % MCV (80-95) fL MCH (27.0-33.0) pg MCHC (32.0-36.0) g/dL RDW (11.8-14.1) % Plt Count (130-400) x1000/uL MPV (8.0-11.0) fL Immature Gran % Neutrophils % Lymphocytes % Monocytes % Eosinophils % Basophils % Absolute Neutrophils (1.2-6.7) k/cumm Absolute Lymphocytes (1.2-3.4) k/cumm Absolute Monocytes (0.11-0.7) k/cumm Absolute Eosinophils (0.0-0.7) k/cumm Absolute Basophils (0.0-0.2) k/cumm PT (9.3-11.0) sec INR (0.9-1.1) APTT (21.0-31.4) sec D-Dimer (<500) ng/mlFEU Sodium (136-145) mmol/L Potassium (3.5-5.1) mmol/L Chloride (98-107) mmol/L Carbon Dioxide (21.0-32.0) mmol/L Anion Gap (3-11) mmol/L BUN (7-18) mg/dL Creatinine (0.70-1.30) mg/dL Estimated GFR/1.73 m2 (mL/min/1.73m2) Glucose (70-100) mg/dL Calcium (8.5-10.1) mg/dL Magnesium (1.8-2.4) mg/dL Total Bilirubin (0.2-1.0) mg/dL AST (15-37) U/L ALT (12-78) U/L Alkaline Phosphatase (46-116) U/L Troponin I (0.00-0.06) ng/mL < 0.05 Total Protein (6.4-8.2) g/dL Albumin (3.4-5.0) g/dL ECG Data Attestation: I personally reviewed and interpreted this ECG (s) as follows: Interpretation: #1 -- Rate of 66, sinus, RSR' V1, nondiagnostic, no acute ST elevation or depression. QTc 415. QRS 100. #2 -- Rate of 60, sinus, incomplete right bundle branch block, seen in previous. No acute ST elevation or depression. QTc 420. QRS 102 HPI <Vinh Barton, MD - Last Filed: 04/28/19 00:20> General Mode of arrival: ambulatory . Date/Time Provider Initiated Documentation: 04/17/19 07:18 . Limitations to Documentation: no limitations . Information obtained by: patient . HPI Narrative: 53-year-old male with history of multiple medical problems including unstable angina, coronary artery disease status post angioplasty with stent x9, smoking, dyslipidemia, esophageal reflux, chronic back pain, left renal mass status post left partial nephrectomy for cancer 2011, CVA, here with chief complaint of chest discomfort. Patient notes he started to have chest pain around 6 AM. Pain is moderate to severe. Pain was 12/10 and is now 8/10. Pain is constant since onset. Onset occurred at rest while he was sitting in his car. Pain is localized to central anterior chest. He notes some tingling in his shoulders bilaterally. He has had associated lightheadedness, sweating and some shortness of breath with this discomfort. He notes that he is been tired recently. He has been take his medications including Eliquis and Plavix as prescribed. Related Data Home Medications Medication Instructions Recorded Confirmed lansoprazole [Prevacid SoluTab] 30 mg PO DAILY 06/18/13 04/18/19 nitroglycerin [Nitrostat] 1 tab SUBLINGUAL Q5 MIN PRN X3 PRN 10/17/13 04/18/19 isosorbide mononitrate 120 mg PO DAILY 10/16/15 04/18/19 multivitamin 1 ea PO DAILY 04/28/17 04/18/19 ascorbic acid (vitamin C) [Vitamin 500 mg PO DAILY 07/18/17 04/18/19 C] Eliquis 5 mg PO BID 30 Days #60 tab 02/24/18 04/18/19 Rosuvastatin Calcium 40 mg PO DAILY 05/09/18 04/18/19 biotin 1 tab PO DAILY 06/05/18 04/17/19 clopidogrel [Plavix] 75 mg PO DAILY 07/24/18 04/18/19 amitriptyline 25 mg PO HS PRN 09/07/18 04/17/19 hydrocodone 5 mg-acetaminophen 325 1 tab PO TID PRN MDD 3 TABS 10/02/18 04/18/19 mg tablet sertraline 50 mg PO DAILY 04/01/19 04/18/19 metoprolol succinate 25 mg PO DAILY 04/17/19 04/18/19 amlodipine 10 mg PO DAILY 04/18/19 04/18/19 bupropion HCl 300 mg PO DAILY 04/18/19 04/18/19 Previous Rx's Medication Instructions Recorded Eliquis 5 mg PO BID 30 Days #60 tab 02/24/18 Allergies Allergy/AdvReac Type Severity Reaction Status Date / Time atorvastatin calcium AdvReac Intermediate liver Unverified 04/17/19 07:19 [From Lipitor] problems niacin AdvReac Mild flushing Unverified 04/17/19 07:19 adhesive from monitor tabs Allergy Intermediate jones Uncoded 04/17/19 07:19 General Stated Complaint: Chest Pain MARQUIS: 2 Review of Systems <Vinh Barton MD - Last Filed: 04/28/19 00:20> Constitutional Denies fever(s) Cardiovascular Reports chest pain, Reports diaphoresis and Reports lightheadedness Respiratory Denies cough Musculoskeletal Reports back pain (Chronic low back pain) PFSH <Vinh Barton MD - Last Filed: 04/28/19 00:20> Social History Smoking/Tobacco Use Status: Current every day Tobacco Type: cigarettes Alcohol Intake: never Drug use: Never Substance use type: does not use Do you feel safe at home: Yes Do you feel safe in your relationship?: Yes Exam <Vinh Barton MD - Last Filed: 04/28/19 00:20> Const General: cooperative and no acute distress HENIL Head: normocephalic Mouth: moist mucous membranes Eyes Conjunctivae: normal conjunctivae Sclera: normal sclerae Neck Neck: trachea midline, supple and no JVD Resp Auscultation: clear to auscultation bilaterally, no rales, no rhonchi and no wheezes Cardio Jugular venous pressure: no JVD Rate: regular rate and not tachycardic Rhythm: regular rhythm GI Palpation: soft, not firm, no guarding, no masses, not rigid and nontender Skin General skin exam: no rashes or lesions noted Other: Warm, dry, no diaphoresis noted Neuro General: alert, awake, oriented x3 and tone normal Extrem General: no calf tenderness and no edema Psych Appearance: grossly normal Course <Vinh Barton MD - Last Filed: 04/28/19 00:20> Vital Signs Temperature 36.5 C 04/17/19 07:14 Pulse 68 04/17/19 07:14 Respiratory Rate 15 04/17/19 07:14 Blood Pressure 142/81 H 04/17/19 07:14 Pulse Oximetry 97 04/17/19 07:14 Temperature 36.5 C 04/17/19 07:14 Temperature Source Temporal Artery Scan 04/17/19 07:14 Pulse 68 04/17/19 07:14 Respiratory Rate 15 04/17/19 07:14 Blood Pressure 142/81 H 04/17/19 07:14 Blood Pressure Position Supine 04/17/19 07:14 Pulse Oximetry 97 04/17/19 07:14 Oxygen Delivery Method Room Air 04/17/19 07:14 Oxygen Flow Rate 0 04/17/19 07:14 Pain Level 8 04/17/19 07:14 Sign Out <Vinh Barton MD - Last Filed: 04/28/19 00:20> Sign Out Data: Sign Out Comment: Care signed out to Dr. Monroe with plan to follow-up on labs, reassess patient, determine disposition. Last updated by Vinh Barton MD at 04/17/19 08:29
--- NOTE | 2019-04-17 07:32 | DI.RAD_ITS ---
SYMPTOMS/DIAGNOSIS: CHEST PAIN CHEST X-RAY, FRONTAL AND LATERAL VIEWS: Comparison is 09/07/18, 11/19/18 and 12/11/18. There is poor inspiration. The cardiac silhouette is within normal limits, as is the pulmonary vasculature. Chronic-appearing changes are seen in the lung bases; these are stable. No focal consolidating infiltrates or effusions are seen. No pneumothorax is identified. No acute osseous abnormality is identified. IMPRESSION: No acute pulmonary process.
[2019-04-17 07:46] LABS: Abs Immature Grans 0.02 k/cumm (0.0-0.09); Absolute Basophil Count 0.03 k/cumm (0.0-0.2); Absolute Eosinophil Count 0.29 k/cumm (0.0-0.7); Absolute Neutrophil Count 7.77 k/cumm (1.2-6.7); Basophils % 0.3; Eosinophils % 2.7; HGB 13.9 g/dL (13.5-17.5); Immature Grans % 0.2; Lymphocytes % 19.2; Mean Corp. HGB Concentration 33.9 g/dL (32.0-36.0); Mean Corpuscular Volume 91.3 fL (80-95); Mean Platelet Volume 9.7 fL (8.0-11.0); Monocytes % 6.4; Neutrophils % 71.2; Platelet Count 280 x1000/uL (130-400); RBC 4.49 m/cumm (4.50-6.00); RBC Distribution Width 13.9 % (11.8-14.1); White Blood Cell Count 10.91 k/cumm (4.4-10.8)
[2019-04-17 07:47] LABS: Absolute Lymphocyte Count 2.09 k/cumm (1.2-3.4)
[2019-04-17 07:59] LABS: Prothrombin Time 9.7 sec (9.3-11.0)
[2019-04-17 08:10] LABS: PTT Activated 29.6 sec (21.0-31.4)
[2019-04-17] MEDS: FAMOTIDINE 20 MG/50 ML BAG 200 MG IVPB (08:12)
[2019-04-17 08:13] LABS: ALT 34 U/L (12-78); AST 19 U/L (15-37); Albumin 3.5 g/dL (3.4-5.0); Alkaline Phosphatase 97 U/L (46-116); Anion Gap 12.7 mmol/L (3-11); BUN 16 mg/dL (7-18); Bilirubin, Total 0.2 mg/dL (0.2-1.0); CO2 23.3 mmol/L (21.0-32.0); Chloride 104 mmol/L (98-107); D-Dimer 352 ng/mlFEU (<500); Glucose 140 mg/dL (70-100); Magnesium 1.7 mg/dL (1.8-2.4); Sodium 140 mmol/L (136-145); Total Protein 7.6 g/dL (6.4-8.2)
[2019-04-17 08:20] LABS: Troponin I < 0.05 ng/mL (0.00-0.06)
[2019-04-17] MEDS: MAGNESIUM SULFATE 1 GM/100 ML BAG IVPB (08:43)
--- NOTE | 2019-04-17 09:13 | DI.VRAD_ITS ---
EXAM: XR Chest, 1 View EXAM DATE/TIME: 04/17/2019 7:35 AM CLINICAL HISTORY: 53 years old, male; Chest pain; Type not specified TECHNIQUE: Imaging protocol: XR of the chest, 1 view. COMPARISON: CR XR PORTABLE CHEST AP 12/11/2018 8:43 AM FINDINGS: Lungs: Unremarkable. No consolidation. Pleural space: Unremarkable. No pleural effusion. No pneumothorax. Heart/Mediastinum: Unremarkable. No cardiomegaly. Bones/joints: Unremarkable. IMPRESSION: No acute findings. Dictated and Authenticated by: Heber Barnes MD. Ordering:DARIANA Justice MD
[2019-04-17 11:39] LABS: Troponin I < 0.05 ng/mL (0.00-0.06)
== END 2019-04-17 12:54 | disposition left against medical advice (07) ==
PROVIDERS: Student in an Organized Health Care Education/Training Program; Emergency Provider Physician Assistant; PCP Internal Medicine
DX: R07.89 Other chest pain (principal); I25.10 Atherosclerotic heart disease of native coronary artery without angina pectoris; Z95.5 Presence of coronary angioplasty implant and graft
CPT/HCPCS: 36415; 80053; 93005; 96365; 96366; 96368; 99285; 71045; 83735; 84484; 85025; 85379; 85610; 85730; 93010; J3475

== ENCOUNTER 2019-04-18 10:26 | Observation (INO) | payer BC, SELFPAY ==
[2019-04-18] VITALS (33 sets, daily range): BP systolic 109–139; BP diastolic 66–87; PULSE 57–71; RESP 13–20; TEMP 35.9–36.6; O2SAT 90–97
[2019-04-18] MEDS: Ondansetron 4 MG/2 ML VIAL (10:35)
--- NOTE | 2019-04-18 10:36 | DI.RAD_ITS ---
SYMPTOMS/DIAGNOSIS: CENTRAL CHEST PAIN CHEST X-RAY, PORTABLE AP VIEW: Comparison is 04/17/19. The heart size and pulmonary vasculature are stable and within normal limits. There has been no significant change in appearance of the chest compared to prior examinations. Chronic infiltrates are seen in the lower lobes. No new infiltrates, effusions or pneumothoraces are identified. IMPRESSION: No acute pulmonary process.
--- NOTE | 2019-04-18 10:42 | W.ED.GENAD ---
Discharge Plan Disposition Patient Disposition: [facility] INPATIENT Condition: Stable Discharge Details Chief Complaint: Chest Pain Clinical Impression: Chest pain Primary Care Provider: Delonte Corrla ED Provider: Fareed Guido Home Meds and New Rx's Prescriptions: No Action hydrocodone-acetaminophen 5-325 mg tablet 1 tab PO Q6H RF: 0 ascorbic acid (vitamin C) [Vitamin C] 1,000 MG tablet 1,000 mg PO DAILY RF: 0 Eliquis 5 MG tablet 5 mg PO BID 30 Days Qty: 60 RF: 4 lansoprazole [Prevacid SoluTab] 30 MG tablet,disintegrat, delay rel 30 mg PO DAILY RF: 0 nitroglycerin [Nitrostat] 0.4 MG tablet, sublingual 1 tab Sublingual Q5 MIN PRN X3 PRNRF: 0 bupropion HCl 150 MG tablet extended release 12 hr 300 mg PO DAILY RF: 0 isosorbide mononitrate 120 MG tablet extended release 24 hr 120 mg PO DAILY RF: 0 multivitamin 1 EACH capsule 1 ea PO DAILY RF: 0 sertraline 100 mg Tablet 100 mg PO DAILY RF: 0 Rosuvastatin Calcium 40 MG tablet 40 mg PO DAILY RF: 0 biotin 800 mcg Tablet 1 tab PO DAILY RF: 0 clopidogrel [Plavix] 75 mg Tablet 75 mg PO DAILY RF: 0 amitriptyline 25 mg Tablet 25 mg PO HS PRNRF: 0 metoprolol succinate 50 mg Capsule,Sprinkle,Er 24hr 25 mg PO DAILY RF: 0 Medical Decision Making This is a pleasant 53-year-old male who presents today for evaluation of chest pain, chest heaviness. He has an extent past medical history of renal cancer, atrial fibrillation, coronary artery disease status post 9 stents, currently on Eliquis and Plavix, He had an implantable loop recorder placed at [facility] last week for 2 episodes of syncope and shaking in his sleep over the past few months. Yesterday he was seen and assessed here for chest pain described as chest heaviness and tightness, unrelated to the location of his loop recorder. Transfer was made to [facility], however the patient left AGAINST MEDICAL ADVICE prior to transfer was completed. He presents today with continuation of his pain. It was made better yesterday by administration of nitroglycerin. At this time the patient's pain is mild. Blood pressure is slightly soft so will hold off on nitroglycerin at this time. Signs and symptoms appear inconsistent with dissection, and also inconsistent with PE as he does regularly take his Eliquis. We will repeat laboratory work-up. His EKG appears benign and unchanged at this time. No evidence of STEMI. We will contact [facility] again for potential transfer. 12:01 PM Patient's laboratory work-up is returned relatively benign, white count slightly elevated at 15, however he has no cough, chills, and the chest x-ray is negative. No other significant abnormalities or signs and symptoms concerning for infection at this time. I did contact [facility] and spoke with Obed, she still recommends transfer, she also recommends heparinization at this time. I did clarify that the patient is still on Eliquis and clopidogrel, and she recommends stopping this and starting heparin. I did confirm that she would like heparin started currently and she confirms yes. They currently do not have a bed available at [facility], but they do request transfer as soon as one becomes available. Patient will be admitted here to the hospitalist service temporarily, receiving heparin, for serial troponins EKGs until he can be transferred to [facility] for further evaluation. I discussed the case with the hospitalist Dr Madsen, he agrees with the assessment and plan. I have extensively reviewed the treatment plan with the patient. I have addressed all patient concerns at this time. I have also discussed the plan with the admitting physician and they agree with the current assessment and plan and have agreed to assume responsibility for the patient. All parties demonstrate verbal understanding and agreement with our assessment and plan at this time. EKG 10: 30 Rate 62, intervals normal, sinus rhythm, minimal less than 1 mm of elevation in V3 and V4, no reciprocal depression. No Q waves. Unchanged from prior EKGs. HPI General Date/Time Provider Initiated Documentation: 04/18/19 10:27. HPI Narrative: This is a 53-year-old male with a past medical history of renal cancer, atrial fibrillation, coronary artery disease status post 9 stents, currently on Eliquis and Plavix, He had an implantable loop recorder placed at [facility] last week for 2 episodes of syncope and shaking in his sleep over the past few months. He was here yesterday for evaluation of chest pain. Chest pain had been occurring at rest, been going on for the last day or so. He describes it as a pressure-like sensation in his chest. He denies any exertional component, no radiation to his arms or neck. He states that it does feel similar to his previous cardiac episodes. He denies any recent spicy foods, or reflux-like symptoms. He has been taking his Eliquis regularly. He denies missing any doses. He was here yesterday, had imaging, laboratory work-up, and consultation with [facility] who recommended transfer. Unfortunately the patient left AGAINST MEDICAL ADVICE prior to transfer. He returns again today for continued symptoms, and feels ready for transfer at this time. He denies any other acute changes, any other modifying factors. Related Data Home Medications Medication Instructions Recorded Confirmed lansoprazole [Prevacid SoluTab] 30 mg PO DAILY 06/18/13 04/17/19 nitroglycerin [Nitrostat] 1 tab SUBLINGUAL Q5 MIN PRN X3 PRN 10/17/13 04/17/19 bupropion HCl 300 mg PO DAILY 10/16/15 04/17/19 isosorbide mononitrate 120 mg PO DAILY 10/16/15 04/17/19 multivitamin 1 ea PO DAILY 04/28/17 04/17/19 ascorbic acid (vitamin C) [Vitamin 1,000 mg PO DAILY 07/18/17 04/17/19 C] Eliquis 5 mg PO BID 30 Days #60 tab 02/24/18 04/17/19 Rosuvastatin Calcium 40 mg PO DAILY 05/09/18 04/17/19 biotin 1 tab PO DAILY 06/05/18 04/17/19 clopidogrel [Plavix] 75 mg PO DAILY 07/24/18 04/17/19 amitriptyline 25 mg PO HS PRN 09/07/18 04/17/19 hydrocodone 5 mg-acetaminophen 325 1 tab PO Q6H 10/02/18 04/17/19 mg tablet sertraline 100 mg PO DAILY 04/01/19 04/17/19 metoprolol succinate 25 mg PO DAILY 04/17/19 04/17/19 Previous Rx's Medication Instructions Recorded Eliquis 5 mg PO BID 30 Days #60 tab 02/24/18 Allergies Allergy/AdvReac Type Severity Reaction Status Date / Time atorvastatin calcium AdvReac Intermediate liver Unverified 04/17/19 07:19 [From Lipitor] problems niacin AdvReac Mild flushing Unverified 04/17/19 07:19 adhesive from monitor tabs Allergy Intermediate jones Uncoded 04/17/19 07:19 General Stated Complaint: Chest Pain MARQUIS: 2 Review of Systems Review of Systems All systems reviewed & are unremarkable except as noted in HPI and below [facility] Social History Smoking/Tobacco Use Status: Current every day Tobacco Type: cigarettes Alcohol Intake: never Drug use: Never Substance use type: does not use Do you feel safe at home: Yes Do you feel safe in your relationship?: Yes Exam Narrative Exam Narrative: 1.Const: Well-nourished, Well-developed, appearing stated age 2.Eyes: PERRL, no conjunctival injection, and symmetrical lids. 3.ENT: Atraumatic external nose and ears. Moist MM. Neck: Symmetric, trachea midline, No thyromegaly. 4.CVS: +S1/S2, No murmurs or gallops. Peripheral pulses 2+ and equal in all extremities. Brisk capillary refill in all extremities. Radial pulse +2 bilaterally. 5.RESP: Unlabored respiratory effort. Clear to auscultation bilaterally. No wheezes rales or rhonchi 6.GI: Soft, Nontender/Nondistended, No hepatosplenomegaly. No guarding or rebound. 7.MSK: Normocephalic/Atraumatic, Extremities w/o deformity or ttp No cyanosis or clubbing, Normal movement of all extremities. Mild reproducible chest pain over the left chest at the place of his loop recorder insertion. This is separate from where his actual pain is. Current pain is surgical. 8.Skin: Warm, Dry. No rashes or lesions. 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 Sensation grossly intact, no focal neurologic deficits. 10.Psych: (AAO) x3. Appropriate mood and affect Course Vital Signs Temperature 36.6 C 04/18/19 10:30 Pulse 64 04/18/19 10:30 Respiratory Rate 16 04/18/19 10:30 Pulse Oximetry 97 04/18/19 10:30 Temperature 36.6 C 04/18/19 10:30 Pulse 64 04/18/19 10:30 Respiratory Rate 16 04/18/19 10:30 Respiratory Effort Non-Labored 04/18/19 10:35 Respiratory Depth Normal 04/18/19 10:35 Respiratory Pattern Normal 04/18/19 10:35 Blood Pressure Position Supine 04/18/19 10:30 Pulse Oximetry 97 04/18/19 10:30 Oxygen Delivery Method Room Air 04/18/19 10:30 Oxygen Flow Rate 0 04/18/19 10:30
[2019-04-18 10:54] LABS: Abs Immature Grans 0.05 k/cumm (0.0-0.09); Absolute Eosinophil Count 0.21 k/cumm (0.0-0.7); Basophils % 0.3; Eosinophils % 1.4; HCT 40.6 % (40.0-50.0); HGB 13.8 g/dL (13.5-17.5); Immature Grans % 0.3; Lymphocytes % 16.8; Mean Corpuscular Hemoglobin 30.9 pg (27.0-33.0); Mean Platelet Volume 9.5 fL (8.0-11.0); Monocytes % 6.5; Neutrophils % 74.7; Platelet Count 271 x1000/uL (130-400); RBC 4.46 m/cumm (4.50-6.00); White Blood Cell Count 15.34 k/cumm (4.4-10.8)
[2019-04-18 10:55] LABS: Absolute Basophil Count 0.05 k/cumm (0.0-0.2); Absolute Lymphocyte Count 2.58 k/cumm (1.2-3.4); Absolute Neutrophil Count 11.46 k/cumm (1.2-6.7)
[2019-04-18 11:12] LABS: PTT Activated 28.4 sec (21.0-31.4)
[2019-04-18 11:20] LABS: ALT 30 U/L (12-78); AST 13 U/L (15-37); Albumin 3.5 g/dL (3.4-5.0); Alkaline Phosphatase 83 U/L (46-116); Anion Gap 9.2 mmol/L (3-11); BUN 14 mg/dL (7-18); Bilirubin, Total 0.2 mg/dL (0.2-1.0); CO2 24.8 mmol/L (21.0-32.0); CREATININE 0.92 mg/dL (0.70-1.30); Calcium 9.1 mg/dL (8.5-10.1); Chloride 103 mmol/L (98-107); Glucose 90 mg/dL (70-100); Lipase 137 U/L (73-393); NT-proBNP 57 pg/mL; Potassium 4.1 mmol/L (3.5-5.1); Sodium 137 mmol/L (136-145); Total Protein 7.4 g/dL (6.4-8.2)
[2019-04-18 11:24] LABS: Troponin I < 0.05 ng/mL (0.00-0.06)
--- NOTE | 2019-04-18 13:00 | NUR.NOTE ---
Nursing Note: pt resting in stretcher, no signs of distress. pt provided cardiac diet lunch tray
--- NOTE | 2019-04-18 13:05 | NUR.NOTE ---
Nursing Note: pt resting in bed, no signs of distress. pt states that his chest pain resolved after nitro-paste
[2019-04-18] MEDS: HYDROcodone 5/Acetaminophen 325 TAB PO (13:27)
[2019-04-18 16:10] LABS: Troponin I < 0.05 ng/mL (0.00-0.06)
--- NOTE | 2019-04-18 16:58 | W.PM.HP.N ---
Date of service: 04/18/19 Time of Service: 16:58 Assessment and Plan (1) Chest pain: Current visit: No Status: Acute Resting chest pain in patient with significant cardiac history. Treatment as below. A[place] [facility] the majority of his [place]. Qualifiers: Chest pain type: unspecified Qualified Code(s): R07.9 - Chest pain, unspecified (2) CAD (coronary artery disease): Current visit: No Status: Chronic Significant history of CAD with multiple prior interventions, s/p 9X stents. Currently with resting chest pain. - Patient reports compliance with his Eliquis this morning. Hold Apixaban, and initiate Heparin gtt this evening when next dose of Eliquis is due. - Continue BB, long acting nitrate, Clopidogrel. Initiate NTG Patch. Continue Telemetry. - Awaiting transfer to [facility] [place] further evaluation. Please note that given uncertainty for transfer time, patient is NOT NPO. Qualifiers: Coronary Disease-Associated Artery/Lesion type: [place] artery [place] vs. transplanted heart: [place] heart Associated angina: without angina Qualified Code(s): I25.10 - Atherosclerotic heart disease of [place] coronary artery without angina pectoris (3) Atrial fibrillation: Current visit: No Status: Acute S/p reported ablation. Continue anticoagulation with Apixaban on hold and on heparin gtt. Also with reported prior history of left MCA stroke in 2017, which may be embolic in origin. Continue BB therapy. (4) Tobacco abuse: Current visit: No Status: Suspected Ongoing. Not interested in cessation. (5) DVT prophylaxis: Current visit: No Status: Acute Active anticoagulation as above. On PPI for GI Prophylaxis. History of Present Illness Chief Complaint: Chest Pain Narrative: 52-year-old man with a past medical history significant for extensive coronary disease, presented to the emergency department at [facility] with complaints of chest pain. Mr. Boucher has a Past Medical History significant for CAD with multiple prior PCI's and 9 prior stents. Despite this he continues to smoke daily. He also has a history of Afib s/p ablation and on Chronic Anticoagulation. He has an implanted loop recorder in place since last week due to 2 episodes of falling and shaking while asleep. He has also haile a prior CVA. Other past medical history includes HTN, dyslipidemia, likely PVD with history of intermittent claudication, anemia, chronic back pain, history of renal CA with recurrence and resection x2, DONAL, and a prior diagnosis of esophagitis and gastritis. Mr. boucher is also seen quite frequently in the emergency department with recurrent bouts of chest pain and palpitations. He initially presented for evaluation on 04/18, with complete resolution of his discomfort with NTG - given his unstable angina he was accepted for transfer to [facility] but due to lack of bed availability the patient refused transfered and left the Emergency Department. He presents back today with recurrence of his discomfort, which he reports also includes dyspnea and tingling in his upper extremities. His EKG was interpreted as with minimal (<1mm) elevation in ST Segments across V3/V4 - negative troponins. The patient was again accepted to [facility] [place] further evaluation, and admitted while awaiting a bed. Review of Systems Review of Systems All systems reviewed & are unremarkable except as noted in HPI and below PFSH Medical History Anemia (Chronic) Atrial fibrillation (Chronic) Back pain, chronic (Chronic) Chest pain (Chronic) Coronary artery disease (Chronic) Depression with anxiety (Chronic) Diverticulosis (Chronic) Duodenal ulcer (Chronic) Dysesthesia (Chronic) Dyslipidemia (Chronic) Dyspepsia (Chronic) Esophagitis (Chronic) Gastritis (Chronic) Hemiplegia (Chronic) History of kidney cancer (Chronic) Hx of adenomatous polyp of colon (Chronic) Ischemic stroke (Chronic) Lipoma of back (Chronic) Occipital headache (Chronic) Pulmonary nodules (Chronic) Sleep apnea (Chronic) Tobacco use (Chronic) Social History Smoking/Tobacco Use Status: Current every day Tobacco Type: cigarettes Alcohol Intake: never Drug use: Never Substance use type: does not use Do you feel safe at home: Yes Do you feel safe in your relationship?: Yes Meds Home Medications Medication Instructions Recorded Confirmed Type lansoprazole [Prevacid SoluTab] 30 mg PO DAILY 06/18/13 04/18/19 History nitroglycerin [Nitrostat] 1 tab SUBLINGUAL Q5 MIN PRN X3 PRN 10/17/13 04/18/19 History isosorbide mononitrate 120 mg PO DAILY 10/16/15 04/18/19 History multivitamin 1 ea PO DAILY 04/28/17 04/18/19 History ascorbic acid (vitamin C) [Vitamin 500 mg PO DAILY 07/18/17 04/18/19 History C] Eliquis 5 mg PO BID 30 Days #60 tab 02/24/18 04/18/19 Rx Rosuvastatin Calcium 40 mg PO DAILY 05/09/18 04/18/19 History biotin 1 tab PO DAILY 06/05/18 04/17/19 History clopidogrel [Plavix] 75 mg PO DAILY 07/24/18 04/18/19 History amitriptyline 25 mg PO HS PRN 09/07/18 04/17/19 History hydrocodone 5 mg-acetaminophen 325 1 tab PO TID PRN MDD 3 TABS 10/02/18 04/18/19 History mg tablet sertraline 50 mg PO DAILY 04/01/19 04/18/19 History metoprolol succinate 25 mg PO DAILY 04/17/19 04/18/19 History amlodipine 10 mg PO DAILY 04/18/19 04/18/19 History bupropion HCl 300 mg PO DAILY 04/18/19 04/18/19 History Allergies Allergy/AdvReac Type Severity Reaction Status Date / Time atorvastatin calcium AdvReac Intermediate liver Unverified 04/17/19 07:19 [From Lipitor] problems niacin AdvReac Mild flushing Unverified 04/17/19 07:19 adhesive from monitor tabs Allergy Intermediate jones Uncoded 04/17/19 07:19 Exam Narrative Exam Narrative: General: Patient appears comfortable, AAOX3, NAD Neck: Supple CV: Regular, nontachycardic, S1S2, No rubs, murmurs, or gallops. Pulmonary: Clear to auscultation bilaterally, no crackles, wheezing, or rhonchi Abdomen: + Bowel Sounds, soft, nontender, nondistended Vascular: No lower extremity edema Neurologic: CN II-XII grossly intact. No focal deficits. Psych: Normal mood and affect. Results Imaging Additional studies: Exam(s) a RAD:XR portable chest AP SYMPTOMS/DIAGNOSIS: CENTRAL CHEST PAIN CHEST X-RAY, PORTABLE AP VIEW: Comparison is 04/17/19. The heart size and pulmonary vasculature are stable and within normal limits. There has been no significant change in appearance of the chest compared to prior examinations. Chronic infiltrates are seen in the lower lobes. No new infiltrates, effusions or pneumothoraces are identified. IMPRESSION: No acute pulmonary process. Labs : 04/18/19 10:45 04/18/19 10:45 Laboratory Results - last 24 hr 04/18/19 04/18/19 04/18/19 10:45 10:45 10:45 WBC 15.34 H D RBC 4.46 L Hgb 13.8 Hct 40.6 MCV 91.0 MCH 30.9 MCHC 34.0 RDW 14.0 Plt Count 271 MPV 9.5 Immature Gran % 0.3 Neutrophils % 74.7 Lymphocytes % 16.8 Monocytes % 6.5 Eosinophils % 1.4 Basophils % 0.3 Absolute Neutrophils 11.46 H Absolute Lymphocytes 2.58 Absolute Monocytes 1.00 H Absolute Eosinophils 0.21 Absolute Basophils 0.05 PT 10.0 INR 1.0 APTT 28.4 Sodium 137 Potassium 4.1 Chloride 103 Carbon Dioxide 24.8 Anion Gap 9.2 BUN 14 Creatinine 0.92 Estimated GFR/1.73 m2 >= 60.00 Glucose 90 D Calcium 9.1 Total Bilirubin 0.2 AST 13 L ALT 30 Alkaline Phosphatase 83 Troponin I < 0.05 NT-Pro-B Natriuret Pep 57 Total Protein 7.4 Albumin 3.5 Lipase 137 04/18/19 15:03 WBC RBC Hgb Hct MCV MCH MCHC RDW Plt Count MPV Immature Gran % Neutrophils % Lymphocytes % Monocytes % Eosinophils % Basophils % Absolute Neutrophils Absolute Lymphocytes Absolute Monocytes Absolute Eosinophils Absolute Basophils PT INR APTT Sodium Potassium Chloride Carbon Dioxide Anion Gap BUN Creatinine Estimated GFR/1.73 m2 Glucose Calcium Total Bilirubin AST ALT Alkaline Phosphatase Troponin I < 0.05 NT-Pro-B Natriuret Pep Total Protein Albumin Lipase Last Vital Signs Temp 35.9 C L 04/18/19 14:29 Pulse 64 04/18/19 14:29 Resp 20 04/18/19 14:29 BP 139/66 04/18/19 14:29 Pulse Ox 97 04/18/19 14:29
[2019-04-18 19:24] LABS: Troponin I < 0.05 ng/mL (0.00-0.06)
== END 2019-04-18 20:43 | disposition short-term general hospital (02) ==
LOC: ER 13:06 → MS 14:21
PROVIDERS: Admitting Provider Internal Medicine; Emergency Provider Student in an Organized Health Care Education/Training Program; PCP Internal Medicine; Visit Provider Internal Medicine
DX: R07.9 Chest pain, unspecified (principal); Z75.3 Unavailability and inaccessibility of health-care facilities; I25.10 Atherosclerotic heart disease of native coronary artery without angina pectoris; Z79.01 Long term (current) use of anticoagulants; Z86.73 Personal history of transient ischemic attack (TIA), and cerebral infarction without residual deficits; F17.210 Nicotine dependence, cigarettes, uncomplicated; Z95.5 Presence of coronary angioplasty implant and graft; I10 Essential (primary) hypertension; E78.5 Hyperlipidemia, unspecified
CPT/HCPCS: 36415; 80053; 83690; 93005; 99222; 99285; 71045; 83880; 84484; 85025; 85610; 85730; 93010; 99219; G0378; J2405

== ENCOUNTER 2019-04-26 12:57 | Outpatient (REF) | payer BC, SELFPAY ==
[2019-04-26 21:20] LABS: Abs Immature Grans 0.03 k/cumm (0.0-0.09); Absolute Basophil Count 0.03 k/cumm (0.0-0.2); Absolute Eosinophil Count 0.25 k/cumm (0.0-0.7); Absolute Lymphocyte Count 2.35 k/cumm (1.2-3.4); Absolute Monocyte Count 0.86 k/cumm (0.11-0.7); Absolute Neutrophil Count 6.61 k/cumm (1.2-6.7); Basophils % 0.3; Eosinophils % 2.5; HCT 38.3 % (40.0-50.0); HGB 13.1 g/dL (13.5-17.5); Immature Grans % 0.3; Lymphocytes % 23.2; Mean Corp. HGB Concentration 34.2 g/dL (32.0-36.0); Mean Corpuscular Hemoglobin 30.8 pg (27.0-33.0); Mean Corpuscular Volume 90.1 fL (80-95); Mean Platelet Volume 10.2 fL (8.0-11.0); Monocytes % 8.5; Neutrophils % 65.2; Platelet Count 250 x1000/uL (130-400); RBC 4.25 m/cumm (4.50-6.00); RBC Distribution Width 13.3 % (11.8-14.1); White Blood Cell Count 10.13 k/cumm (4.4-10.8)
== END 2019-04-26 13:17 ==
LOC: NCHCN 12:57
PROVIDERS: PCP Internal Medicine; Visit Provider Internal Medicine
DX: R10.84 Generalized abdominal pain (principal)
CPT/HCPCS: 85025

== ENCOUNTER 2019-05-08 08:33 | Outpatient (CLI) | payer BC, SELFPAY ==
--- NOTE | 2019-05-08 09:00 | DI.US_ITS ---
SYMPTOM/DIAGNOSIS: RT TESTICLE PAIN X 1 MO, N50.811 SCROTAL ULTRASOUND: 05/08/19 Scrotal ultrasound was performed according to the usual protocol. There are small bilateral hydroceles and there is 13 mm spermatocele or epididymal head cysts of the right epididymis. Testes are homogeneous in echo texture and show normal symmetrical vascular flow. No testicular mass identified. CONCLUSION: Presumed right spermatocele. No evidence of testicular mass.
== END 2019-05-08 08:53 ==
PROVIDERS: PCP Internal Medicine; Visit Provider Nurse Practitioner Gerontology
DX: N50.811 Right testicular pain (principal)
CPT/HCPCS: 76870

== ENCOUNTER 2019-05-14 01:33 | Outpatient (CLI) | payer BC, SELFPAY ==
--- NOTE | 2019-05-14 08:10 | DI.US_ITS ---
SYMPTOM/DIAGNOSIS: EVALUATE FOR BILATERAL HERNIA K40.20 SOFT TISSUE ULTRASOUND: 05/14 Ultrasound was performed to evaluate suspected bilateral inguinal hernias. The findings suggesting an approximately 2 cm right sided inguinal hernia and left sided 1.7 cm in diameter hernia No bowel identified in the presumed hernias.
== END 2019-05-14 01:53 ==
PROVIDERS: PCP Internal Medicine; Visit Provider Urology
DX: K40.20 Bilateral inguinal hernia, without obstruction or gangrene, not specified as recurrent (principal)
CPT/HCPCS: 76857

== ENCOUNTER 2019-05-20 14:47 | Emergency (ER) | payer BC, SELFPAY ==
[2019-05-20] VITALS (21 sets, daily range): BP systolic 119–126; BP diastolic 74–82; PULSE 65–75; RESP 13–21; TEMP 36.8; O2SAT 91–98
--- NOTE | 2019-05-20 15:20 | W.ED.GENAD ---
Discharge Plan Disposition Patient Disposition: AGAINST MEDICAL ADVICE Discharge Details Chief Complaint: Chest Pain Clinical Impression: Chest pain Primary Care Provider: Delonte Corral ED Provider: Vinh Barton Home Meds and New Rx's Prescriptions: No Action hydrocodone-acetaminophen 5-325 mg tablet 1 tab PO TID MDD 3 TABS PRNRF: 0 carvedilol 3.125 mg tablet 3.125 mg PO BID RF: 0 Eliquis 5 MG tablet 5 mg PO BID 30 Days Qty: 60 RF: 4 lansoprazole [Prevacid SoluTab] 30 MG tablet,disintegrat, delay rel 30 mg PO DAILY RF: 0 nitroglycerin [Nitrostat] 0.4 MG tablet, sublingual 1 tab Sublingual Q5 MIN PRN X3 PRNRF: 0 isosorbide mononitrate 120 MG tablet extended release 24 hr 120 mg PO DAILY RF: 0 sertraline 100 mg Tablet 50 mg PO DAILY RF: 0 Rosuvastatin Calcium 40 MG tablet 40 mg PO DAILY RF: 0 clopidogrel [Plavix] 75 mg Tablet 75 mg PO DAILY RF: 0 amitriptyline 25 mg Tablet 25 mg PO HS PRNRF: 0 amlodipine 10 mg Tablet 10 mg PO DAILY RF: 0 bupropion HCl 150 mg Tablet Extended Release 24 Hr 300 mg PO DAILY RF: 0 Discharge Instructions Instructions: Against Medical Advice (ED) Additional Instructions: Please follow-up with your primary care physician. Call tomorrow to arrange timely follow-up. Rest and avoid exertional activities until cleared by a provider. Return to the ER at any time for further work-up and treatment. Referrals: Delonte Corral MD [Primary Care Provider] - Medical Decision Making 15:27 --53-year-old male with history of coronary artery disease status post multiple stents, paroxysmal atrial fibrillation, left MCA stroke, GERD, renal mass status post left partial nephrectomy, noncompliance with treatment recommendations -patient continues to smoke cigarettes, here with chest pain since approximately 1 hour prior to arrival. Patient did take 2 nitroglycerin prior to arrival without relief of discomfort. Consider ACS. ECG reviewed and interpreted by me: Normal sinus rhythm 67 bpm, RSR prime pattern noted, Q waves laterally, no STEMI, nondiagnostic. Plan to check troponin. Will hold on additional nitroglycerin at this time given soft blood pressure. 16:20 --Labs reviewed and troponin negative. Plan for delta troponin. Plan discussed with patient. Patient refuses additional diagnostics at this time and would prefer to go home. I had a discussion with the patient about my diagnostic/treatment plan. Patient declines plan and wishes to leave against medical advise. I reiterated my concerns to the patient and explained the risks of leaving prior to completion of workup and treatment. I specifically emphasized the possibility of life-threatening or lifestyle modifying disease that would not be appropriately treated if they leave. Mr. Anne verbalized understanding of my concerns and the potential for life threatening or lifestyle modifying disease. He has capacity to make informed decision. I again explained my concerns and urged the patient to stay for treatment as outlined. He continued to refuse. I then discussed potential less ideal alternatives to diagnostic/treatment plan as outlines and patient refused. I recommended that the patient follow-up with primary care physician SHUN or return to the Emergency Department at any time for further treatment. HPI General Date/Time Provider Initiated Documentation: 05/20/19 14:49. HPI Narrative: 53-year-old male with history of coronary artery disease status post multiple stents, paroxysmal atrial fibrillation, left MCA stroke, GERD, renal mass status post left partial nephrectomy, ongoing tobacco use presents with chief complaint of chest pain. Patient was seen here last month for chest pain. He was admitted temporarily until he could be transferred to [facility] for unstable angina. He was seen by cardiology and decision was made for optimization of medical management. Troponins were negative and additional diagnostics were not pursued. Pain today is localized to his anterior left chest. Pain is moderate. Constant since about an hour prior to arrival. No modifiers. No associated shortness of breath. No trauma. Patient has been taking medications as prescribed. Related Data Home Medications Medication Instructions Recorded Confirmed lansoprazole [Prevacid SoluTab] 30 mg PO DAILY 06/18/13 05/20/19 nitroglycerin [Nitrostat] 1 tab SUBLINGUAL Q5 MIN PRN X3 PRN 10/17/13 05/20/19 isosorbide mononitrate 120 mg PO DAILY 10/16/15 05/20/19 Eliquis 5 mg PO BID 30 Days #60 tab 02/24/18 05/20/19 Rosuvastatin Calcium 40 mg PO DAILY 05/09/18 05/20/19 clopidogrel [Plavix] 75 mg PO DAILY 07/24/18 05/20/19 amitriptyline 25 mg PO HS PRN 09/07/18 05/20/19 hydrocodone 5 mg-acetaminophen 325 1 tab PO TID PRN MDD 3 TABS 10/02/18 05/20/19 mg tablet sertraline 50 mg PO DAILY 04/01/19 05/20/19 amlodipine 10 mg PO DAILY 04/18/19 05/20/19 bupropion HCl 300 mg PO DAILY 04/18/19 05/20/19 carvedilol 3.125 mg tablet 3.125 mg PO BID 05/18/19 05/20/19 Previous Rx's Medication Instructions Recorded Eliquis 5 mg PO BID 30 Days #60 tab 02/24/18 Allergies Allergy/AdvReac Type Severity Reaction Status Date / Time atorvastatin calcium AdvReac Intermediate liver Unverified 05/20/19 14:54 [From Lipitor] problems niacin AdvReac Mild flushing Unverified 05/20/19 14:54 adhesive from monitor tabs Allergy Intermediate jones Uncoded 05/20/19 14:54 General Stated Complaint: Chest Pain MARQUIS: 2 Review of Systems Review of Systems All systems reviewed & are unremarkable except as noted in HPI and below Constitutional Reports fatigue and Denies fever(s) Cardiovascular Reports chest pain Endocrine Reports fatigue PFSH Medical History Anemia (Chronic) Atrial fibrillation (Chronic) Back pain, chronic (Chronic) Chest pain (Chronic) Coronary artery disease (Chronic) Depression with anxiety (Chronic) Diverticulosis (Chronic) Duodenal ulcer (Chronic) Dysesthesia (Chronic) Dyslipidemia (Chronic) Dyspepsia (Chronic) Esophagitis (Chronic) Gastritis (Chronic) Hemiplegia (Chronic) History of kidney cancer (Chronic) Hx of adenomatous polyp of colon (Chronic) Inguinal hernia (Acute) Ischemic stroke (Chronic) Lipoma of back (Chronic) Occipital headache (Chronic) Pulmonary nodules (Chronic) Recurrent inguinal hernia (Acute) Sleep apnea (Chronic) Spermatocele (Acute) Tobacco use (Chronic) Umbilical hernia (Acute) Surgical History cardiac cath (Inactive) Colonoscopy - MAC (Inactive 08/03/17) EGD - MAC (Inactive 08/03/17) Partial Nephrectomy (Inactive) Repair of inguinal hernia (Inactive) Social History Smoking/Tobacco Use Status: Current every day Tobacco Type: cigarettes Smoking packs per day: 1 Alcohol Intake: never Drug use: Never Substance use type: does not use Do you feel safe at home: Yes Do you feel safe in your relationship?: Yes Exam Const General: cooperative and no acute distress HENMT Mouth: moist mucous membranes Eyes Conjunctivae: normal conjunctivae Sclera: normal sclerae Neck Neck: trachea midline and supple Resp Auscultation: clear to auscultation bilaterally, no rales, no rhonchi and no wheezes Cardio Jugular venous pressure: no JVD Rate: regular rate and not tachycardic Rhythm: regular rhythm GI Palpation: soft, not firm, no guarding, no masses, not rigid and nontender Skin General skin exam: no rashes or lesions noted Neuro General: alert, awake, oriented x3 and tone normal Extrem General: no calf tenderness and no edema Psych Appearance: grossly normal Mental Status: mental status grossly normal Speech and Movement: speech and movement normal Course Vital Signs Temperature 36.8 C 05/20/19 14:50 Pulse 75 05/20/19 14:50 Respiratory Rate 18 05/20/19 14:50 Blood Pressure 126/77 05/20/19 14:50 Pulse Oximetry 97 05/20/19 14:50 Temperature 36.8 C 05/20/19 14:50 Pulse 75 05/20/19 14:50 Respiratory Rate 15 05/20/19 15:06 Respiratory Effort Non-Labored 05/20/19 15:06 Respiratory Depth Normal 05/20/19 15:06 Respiratory Pattern Normal 05/20/19 15:06 Blood Pressure 126/77 05/20/19 14:50 Pulse Oximetry 97 05/20/19 14:50 Oxygen Delivery Method Room Air 05/20/19 14:50 Oxygen Flow Rate 0 05/20/19 14:50 Pain Level 6 05/20/19 15:06
[2019-05-20 15:28] LABS: Abs Immature Grans 0.03 k/cumm (0.0-0.09); Absolute Basophil Count 0.04 k/cumm (0.0-0.2); Absolute Lymphocyte Count 2.66 k/cumm (1.2-3.4); Absolute Neutrophil Count 6.68 k/cumm (1.2-6.7); Basophils % 0.4; HCT 37.4 % (40.0-50.0); HGB 13.1 g/dL (13.5-17.5); Immature Grans % 0.3; Lymphocytes % 26.1; Mean Corpuscular Hemoglobin 31.7 pg (27.0-33.0); Mean Corpuscular Volume 90.6 fL (80-95); Mean Platelet Volume 9.4 fL (8.0-11.0); Monocytes % 5.9; Neutrophils % 65.3; Platelet Count 298 x1000/uL (130-400); RBC 4.13 m/cumm (4.50-6.00); RBC Distribution Width 13.4 % (11.8-14.1); White Blood Cell Count 10.21 k/cumm (4.4-10.8)
[2019-05-20 15:43] LABS: ALT 23 U/L (16-63); AST 17 U/L (15-37); Albumin 3.4 g/dL (3.4-5.0); Alkaline Phosphatase 84 U/L (46-116); Anion Gap 11.3 mmol/L (3-11); BUN 16 mg/dL (7-18); Bilirubin, Total 0.2 mg/dL (0.2-1.0); CO2 24.7 mmol/L (21.0-32.0); CREATININE 1.08 mg/dL (0.70-1.30); Calcium 8.4 mg/dL (8.5-10.1); Chloride 104 mmol/L (98-107); Glucose 128 mg/dL (70-100); Potassium 3.5 mmol/L (3.5-5.1); Sodium 140 mmol/L (136-145); Total Protein 7.1 g/dL (6.4-8.2)
[2019-05-20 15:48] LABS: Troponin I < 0.05 ng/mL (0.00-0.06)
== END 2019-05-20 16:42 | disposition left against medical advice (07) ==
PROVIDERS: Emergency Provider Student in an Organized Health Care Education/Training Program; PCP Internal Medicine
DX: R07.9 Chest pain, unspecified (principal); Z53.29 Procedure and treatment not carried out because of patient's decision for other reasons; I25.10 Atherosclerotic heart disease of native coronary artery without angina pectoris; Z95.5 Presence of coronary angioplasty implant and graft
CPT/HCPCS: 36415; 80053; 93005; 99284; 84484; 85025; 93010

== ENCOUNTER 2019-05-29 10:49 | Emergency (ER) | payer BC, SELFPAY ==
[2019-05-29] VITALS (35 sets, daily range): BP systolic 102–130; BP diastolic 62–74; PULSE 59–74; RESP 11–23; TEMP 37.6; O2SAT 92–97
--- NOTE | 2019-05-29 10:52 | W.ED.GENAD ---
Discharge Plan Disposition Patient Disposition: HOME Condition: Good Discharge Details Chief Complaint: Chest Pain Clinical Impression: Chest pain Primary Care Provider: Delonte Corral ED Provider: Fareed Guido Home Meds and New Rx's Prescriptions: New meclizine 25 mg tablet 25 mg PO DAILY Qty: 10 RF: 0 No Action hydrocodone-acetaminophen 5-325 mg tablet 1 tab PO TID MDD 3 TABS PRNRF: 0 carvedilol 3.125 mg tablet 3.125 mg PO BID RF: 0 Eliquis 5 MG tablet 5 mg PO BID 30 Days Qty: 60 RF: 4 lansoprazole [Prevacid SoluTab] 30 MG tablet,disintegrat, delay rel 30 mg PO DAILY RF: 0 nitroglycerin [Nitrostat] 0.4 MG tablet, sublingual 1 tab Sublingual Q5 MIN PRN X3 PRNRF: 0 isosorbide mononitrate 120 MG tablet extended release 24 hr 120 mg PO DAILY RF: 0 sertraline 100 mg Tablet 50 mg PO DAILY RF: 0 Rosuvastatin Calcium 40 MG tablet 40 mg PO DAILY RF: 0 clopidogrel [Plavix] 75 mg Tablet 75 mg PO DAILY RF: 0 amitriptyline 25 mg Tablet 25 mg PO HS PRNRF: 0 amlodipine 10 mg Tablet 10 mg PO DAILY RF: 0 bupropion HCl 150 mg Tablet Extended Release 24 Hr 300 mg PO DAILY RF: 0 Discharge Instructions Instructions: Chest Pain (ED) Additional Instructions: Please take the meclizine as needed for dizziness. 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 If you notice any worsening of your symptoms, or any new symptoms such as vomiting, diarrhea, fever, chills, shortness of breath, chest pain, numbness, weakness, or fainting , please return immediately to the emergency department for reevaluation. Please follow up with your primary care provider as soon as possible for reassessment and reevaluation. As always, it was a pleasure participating in your medical care today. 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 Patient has been seen multiple times in the emergency department for symptoms like this. Patient presents today for evaluation of chest pain. Patient states that his symptoms have been present for the last 3 days, they come and go in nature, they are not exertional. He denies any tearing or ripping sensation. He does admit to occasional intermittent weakness in his right arm and right leg. Patient states that the symptoms feel slightly atypical from his previous cardiac episodes. He was recently seen at [facility] where he refused any invasive therapy, or stress testing. With the patient's history of symptomatology we will perform a cardiac work-up, as well as a CT scan of the head to rule out acute bleed or stroke although I feel this notably unlikely based on his physical exam. We will give topical nitro ointment secondary to his blood pressure being slightly low. We will continue to monitor and then reassess. 12:45 PM Laboratory work-up has returned, notably unremarkable. Chest x-ray negative for acute process, hemoglobin stable, troponin normal, electrolytes benign. Lipase normal. CT scan of the head per Dr. Esqueda is normal. Will perform delta troponin repeat EKG. Will review the case with [facility] and reassess. Patient has had no significant alteration in his symptoms with the nitroglycerin ointment. He does not want any pain medications at this time. He is refusing any additional medications for pain. 2:20 PM We did contact [facility] and I discussed the case with on-call cardiology, MASON Zarate, we discussed the work-up, imaging, and the patient's current clinical disposition. Did discuss my plans for a delta troponin repeat EKG. At this time she has no additional recommendations. She does not feel that the patient requires admission, and more specifically any transfer to [facility]. She feels that if the delta troponin is normal the patient be safely discharged. Signs and symptoms at this time are clinically inconsistent with ACS, and additionally patient has made it very clear in the past including his recent visit to [facility] his lack of interest in additional invasive and noninvasive cardiac work-up. We are currently pending delta troponin this time. Repeat EKG is unchanged and unremarkable. 3:07 PM Repeat labs and EKG are unremarkable and unchanged. Patient states that he feels fine would like to go home at this time. Initially he did have a small amount of dizziness, he was given meclizine the patient has complete resolution of this. May be resolved from the meclizine or from the IV fluids. I am uncertain at this time. With [facility] feeling very comfortable with his discharge after serial troponins, as well as the patient's request to go home, clearly understanding the risks, benefits, and recommendations, including weighing the option of staying overnight, patient is still requesting to go home. Respecting his wishes patient will be discharged home with meclizine, recommend close follow-up with his PCP. Discussed red flags which to return. As well as the importance of close follow-up at [facility]. I have extensively reviewed the treatment plan and discharge instructions with the patient. I have addressed all patient concerns at this time. The patient was made aware of what symptoms to monitor for that would warrant a return to the emergency department. Discussed the plan with the patient, they demonstrate verbal understanding and agreement with our assessment and plan at this time. EKG 10: 59 Rate 71, intervals normal, sinus rhythm, incomplete right bundle branch block, no significant ST elevations or depressions, questionable Q waves in lead III, no evidence of STEMI EKG at 14: 09 Rate 68, intervals normal, sinus rhythm, questionable incomplete right bundle branch block, no significant ST elevations or depressions, questionable Q waves in lead III, no evidence of STEMI HPI General Date/Time Provider Initiated Documentation: 05/29/19 10:49. HPI Narrative: 53-year-old male with history of coronary artery disease status post multiple stents, paroxysmal atrial fibrillation, left MCA stroke, GERD, renal mass status post left partial nephrectomy, ongoing tobacco use presents with chief complaint of chest pain. Patient has been seen multiple times in the emergency department for symptoms like this. He certainly has real and notable cardiac disease. He presents today for this pain. Pain began 3 days ago, it is a pressure-like sensation in the center of his chest. It comes and goes in severity, and he does have a small associated cough. He denies any pleuritic chest discomfort, hemoptysis, vomiting or diarrhea. He does admit to mild nausea. Symptoms are not made worse when he walks upstairs or exerts himself. He does admit to occasional intermittent weakness in his right arm and right leg, these are not consistent though. He denies any tearing or ripping sensation in his chest. He has been taking his home medications including his Eliquis. And of note on his most recent visit [facility] few months ago he refused any extensive diagnostic evaluations, they did recommend continuing home Plavix, continuing his Eliquis, stopping metoprolol and starting carvedilol, continuing home Norvasc, and continuing home Imdur. Patient denies any other complaints at this time. No other modifying factors. He states that this chest pain certainly feels atypical from his previous cardiac episodes. Related Data Home Medications Medication Instructions Recorded Confirmed lansoprazole [Prevacid SoluTab] 30 mg PO DAILY 06/18/13 05/29/19 nitroglycerin [Nitrostat] 1 tab SUBLINGUAL Q5 MIN PRN X3 PRN 10/17/13 05/29/19 isosorbide mononitrate 120 mg PO DAILY 10/16/15 05/29/19 Eliquis 5 mg PO BID 30 Days #60 tab 02/24/18 05/29/19 Rosuvastatin Calcium 40 mg PO DAILY 05/09/18 05/29/19 clopidogrel [Plavix] 75 mg PO DAILY 07/24/18 05/29/19 amitriptyline 25 mg PO HS PRN 09/07/18 05/29/19 hydrocodone 5 mg-acetaminophen 325 1 tab PO TID PRN MDD 3 TABS 10/02/18 05/29/19 mg tablet sertraline 50 mg PO DAILY 04/01/19 05/29/19 amlodipine 10 mg PO DAILY 04/18/19 05/29/19 bupropion HCl 300 mg PO DAILY 04/18/19 05/29/19 carvedilol 3.125 mg tablet 3.125 mg PO BID 05/18/19 05/29/19 meclizine 25 mg PO DAILY #10 tab 05/29/19 Previous Rx's Medication Instructions Recorded Eliquis 5 mg PO BID 30 Days #60 tab 02/24/18 meclizine 25 mg PO DAILY #10 tab 05/29/19 Allergies Allergy/AdvReac Type Severity Reaction Status Date / Time atorvastatin calcium AdvReac Intermediate liver Unverified 05/29/19 11:58 [From Lipitor] problems niacin AdvReac Mild flushing Unverified 05/29/19 11:58 adhesive from monitor tabs Allergy Intermediate jones Uncoded 05/29/19 11:58 General MARQUIS: 2 Review of Systems Review of Systems All systems reviewed & are unremarkable except as noted in HPI and below PFSH Social History Smoking/Tobacco Use Status: Current every day Tobacco Type: cigarettes Alcohol Intake: never Drug use: Never Substance use type: does not use Do you feel safe at home: Yes Do you feel safe in your relationship?: Yes Exam Narrative Exam Narrative: 1.Const: Well-nourished, Well-developed, appearing stated age 2.Eyes: PERRL, no conjunctival injection, and symmetrical lids. 3.ENT: Atraumatic external nose and ears. Moist MM. Neck: Symmetric, trachea midline, No thyromegaly. 4.CVS: +S1/S2, No murmurs or gallops. Peripheral pulses 2+ and equal in all extremities. Brisk capillary refill in all extremities. 5.RESP: Unlabored respiratory effort. Clear to auscultation bilaterally. No wheezes rales or rhonchi 6.GI: Soft, Nontender/Nondistended, No hepatosplenomegaly. No guarding or rebound. 7.MSK: Normocephalic/Atraumatic, Extremities w/o deformity or ttp No cyanosis or clubbing, Normal movement of all extremities, normal strength in all extremities. 8.Skin: Warm, Dry. No rashes or lesions. 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 Sensation grossly intact, no focal neurologic deficits. All 6 cardinal planes of vision are fully intact. No evidence of rotatory or vertical nystagmus. The patient demonstrated a normal [id number], good dexterity. There was no evidence of dysdiadochokinesia. Patient was able to ambulate without difficulty. There was no wide-based gait. Romberg, and [id number] are both normal on testing. Sensation was intact bilaterally as well as muscle strength bilaterally for all extremities. Patient was able to verbalize butter cup with no slurring, or miss pronunciation. Cerebellar function testing is normal. The patient demonstrates a normal hints exam with no findings concerning for a central event. No vertical nystagmus. The head impulse test is negative for any significant central abnormality. Normal test of skew. No suggestion of a central cerebellar event. 10.Psych: (AAO) x3. Appropriate mood and affect
--- NOTE | 2019-05-29 10:53 | NUR.NOTE ---
Nursing Note: pt has had chest pain sternal for the past 3 days on and off that is worse today described as pressure pt also had weakness on right arm and tingling in right leg history of 2 heart atacks and 9 stents
--- NOTE | 2019-05-29 11:07 | DI.CT_ITS ---
SYMPTOM/DIAGNOSIS; SUBJECTIVE WEAKNESS IN RIGHT ARM, ON THINNERS. NONCONTRAST HEAD CT; No intracranial hemorrhage, mass or infarct is seen. There is no significant atrophy or visible white matter changes. The ventricles are normal in size. IMPRESSION: Negative head CT.
--- NOTE | 2019-05-29 11:08 | DI.RAD_ITS ---
SYMPTOM/DIAGNOSIS: CHEST PAIN PA AND LATERAL CHEST: Comparison is made with 18 April 2019 Heart size is normal. Coronary artery stents are again seen. An electronic device is seen in the left mid chest.wall. The lungs appear clear. No infiltrate, effusion or pulmonary edema is seen. IMPRESSION: No acute abnormality.
[2019-05-29 11:31] LABS: Abs Immature Grans 0.02 k/cumm (0.0-0.09); Absolute Basophil Count 0.03 k/cumm (0.0-0.2); Absolute Eosinophil Count 0.17 k/cumm (0.0-0.7); Absolute Lymphocyte Count 2.18 k/cumm (1.2-3.4); Absolute Monocyte Count 0.61 k/cumm (0.11-0.7); Absolute Neutrophil Count 6.69 k/cumm (1.2-6.7); Basophils % 0.3; Eosinophils % 1.8; HCT 37.6 % (40.0-50.0); HGB 12.9 g/dL (13.5-17.5); Immature Grans % 0.2; Lymphocytes % 22.5; Mean Corp. HGB Concentration 34.3 g/dL (32.0-36.0); Mean Corpuscular Hemoglobin 31.4 pg (27.0-33.0); Mean Corpuscular Volume 91.5 fL (80-95); Mean Platelet Volume 9.4 fL (8.0-11.0); Monocytes % 6.3; Neutrophils % 68.9; Platelet Count 265 x1000/uL (130-400); RBC 4.11 m/cumm (4.50-6.00); RBC Distribution Width 13.8 % (11.8-14.1)
[2019-05-29 11:42] LABS: ALT 26 U/L (16-63); AST 15 U/L (15-37); Albumin 3.2 g/dL (3.4-5.0); Alkaline Phosphatase 89 U/L (46-116); Anion Gap 9.7 mmol/L (3-11); BUN 15 mg/dL (7-18); Bilirubin, Total 0.1 mg/dL (0.2-1.0); CO2 24.3 mmol/L (21.0-32.0); CREATININE 1.02 mg/dL (0.70-1.30); Calcium 8.3 mg/dL (8.5-10.1); Chloride 107 mmol/L (98-107); Glucose 121 mg/dL (70-100); Lipase 147 U/L (73-393); NT-proBNP 79 pg/mL; Potassium 4.1 mmol/L (3.5-5.1); Sodium 141 mmol/L (136-145); Total Protein 6.8 g/dL (6.4-8.2)
[2019-05-29 11:43] LABS: PTT Activated 31.4 sec (21.0-31.4); Prothrombin Time 10.4 sec (9.3-11.0); Troponin I < 0.05 ng/mL (0.00-0.06)
[2019-05-29] MEDS: Normal Saline 1,000 ML 1000 ML IV (12:50)
[2019-05-29] MEDS: Meclizine 25 MG TAB PO (12:50)
[2019-05-29 14:41] LABS: Troponin I < 0.05 ng/mL (0.00-0.06)
== END 2019-05-29 15:15 | disposition home or self-care (01) ==
PROVIDERS: Emergency Provider Student in an Organized Health Care Education/Training Program; PCP Internal Medicine
DX: R07.9 Chest pain, unspecified (principal); Z90.5 Acquired absence of kidney; I25.10 Atherosclerotic heart disease of native coronary artery without angina pectoris; I48.91 Unspecified atrial fibrillation; F17.210 Nicotine dependence, cigarettes, uncomplicated; Z95.5 Presence of coronary angioplasty implant and graft
CPT/HCPCS: 36415; 80053; 83690; 93005; 96360; 99285; 70450; 71046; 83880; 84484; 85025; 85610; 85730; 93010

== ENCOUNTER 2019-06-14 09:31 | Outpatient (CLI) | payer BC, SELFPAY | END 2019-06-14 09:51 | PROVIDERS: PCP Internal Medicine; Visit Provider Internal Medicine Cardiovascular Disease | DX: I25.10 Atherosclerotic heart disease of native coronary artery without angina pectoris (principal); I48.91 Unspecified atrial fibrillation | CPT/HCPCS: 93005; 93010 ==

== ENCOUNTER 2019-06-19 14:45 | Outpatient (CLI) | payer BC, SELFPAY ==
--- NOTE | 2019-06-19 15:22 | DI.US_ITS ---
EXAM: US SOFT TISSUE HEAD OR NECK CLINICAL HISTORY: MASS RT LOWER NECK, ? LIPOMA, D17.0. TECHNIQUE: Ultrasound was performed using standard protocol. COMPARISON: No exams were available for comparison FINDINGS: Multiple bilateral lymph nodes are noted anteriorly, superior portion of the neck, which appear to co rrespond to palpable lumps. Largest on the left side measures 1.3 x 0.5 x 1.3 cm, largest on the rig ht side measures 1.6 x 0.6 x 1.5 cm. There is a question regarding a solid mass, right side, at the base of the neck, which has acoustical characteristics for a lipoma and measures 1.6 x 0.6 x 1.6 cm.
== END 2019-06-19 15:05 ==
PROVIDERS: PCP Internal Medicine; Visit Provider Nurse Practitioner Family
DX: R22.1 Localized swelling, mass and lump, neck (principal); R59.0 Localized enlarged lymph nodes; D17.0 Benign lipomatous neoplasm of skin and subcutaneous tissue of head, face and neck
CPT/HCPCS: 76536

== ENCOUNTER 2019-06-26 13:11 | Emergency (ER) | payer BC, SELFPAY ==
[2019-06-26] VITALS (12 sets, daily range): BP systolic 115–133; BP diastolic 75–88; PULSE 57–76; RESP 11–19; TEMP 36.5; O2SAT 90–97
--- NOTE | 2019-06-26 13:20 | W.ED.GENAD ---
Discharge Plan Disposition Patient Disposition: AGAINST MEDICAL ADVICE Condition: Improving Discharge Details Chief Complaint: Dizzy/Sync Clinical Impression: Vertigo, Atypical chest pain, Headache Primary Care Provider: Delonte Corral ED Provider: Beata Monroe Home Meds and New Rx's Prescriptions: New meclizine 12.5 mg tablet 12.5 mg PO TID PRN (Reason: dizziness) Qty: 10 RF: 0 Continued hydrocodone-acetaminophen 5-325 mg tablet 1 tab PO TID MDD 3 TABS PRNRF: 0 carvedilol 3.125 mg tablet 6.25 mg PO BID RF: 0 Eliquis 5 MG tablet 5 mg PO BID 30 Days Qty: 60 RF: 4 lansoprazole [Prevacid SoluTab] 30 MG tablet,disintegrat, delay rel 30 mg PO BID RF: 0 isosorbide mononitrate 120 MG tablet extended release 24 hr 120 mg PO DAILY RF: 0 sertraline 100 mg Tablet 50 mg PO DAILY RF: 0 Rosuvastatin Calcium 40 MG tablet 40 mg PO DAILY RF: 0 clopidogrel [Plavix] 75 mg Tablet 75 mg PO DAILY RF: 0 amitriptyline 25 mg Tablet 25 mg PO HS PRNRF: 0 amlodipine 10 mg Tablet 5 mg PO DAILY RF: 0 bupropion HCl 150 mg Tablet Extended Release 24 Hr 300 mg PO DAILY RF: 0 Discharge Instructions Instructions: Chest Pain (ED), Vertigo (ED) Additional Instructions: Take the meclizine as needed and directed. Drink plenty of fluids and get plenty of rest. Follow-up with your scheduled appointment with your primary care doctor on Tuesday. Return immediately to the emergency department if you develop any worsening or new concerning symptoms. Discharge Data Discharge Physician: Beata Monroe Medical Decision Making 1320 -- 53-year-old male well-known to the emergency department who has had frequent visits for headache and chest pain and has a history of atrial fibrillation on Eliquis, CAD, 9 cardiac stents, CVA, esophagitis, dyslipidemia presents with headache, dizziness c/w spinning sensation and chest pain since this morning. States his headache is minimal at this time and his dizziness is the worst symptom he has at present. EKG notes a rate of 67, sinus with no acute ST ischemic changes. He has no focal deficits on exam. Differential diagnosis includes ACS, vertigo, CVA, electrolyte abnormality, dehydration. Will place an IV, bolus IV fluids, meclizine, Compazine, screening labs, CT head and chest x-ray. 1445 -- Labs and imaging reviewed. Normal white blood cell count, electrolytes, negative troponin. CT head and chest x-ray negative. 1500 --patient feels much better and is requesting to go home. He denies any headache, dizziness or chest pain. Discussed with patient that considering his extensive cardiac history, would recommend at least a second troponin but he is refusing to stay at this time. The risks of and disability due to a serious cardiac pathology explained and he fully understands and would still like to leave. He demonstrates capacity to make decisions. AMA form signed. He has a follow-up appointment with his primary care doctor on Tuesday. He is advised to return here immediately with any worsening or new concerning symptoms. Discussed with patient that his symptom presentation appears consistent with vertigo, but if his headache or dizziness persist, to consider an outpatient MRI brain for further evaluation. Medical Records Medical records reviewed: Yes I reviewed the patient's medical records. Imaging Data Radiologic Study: Radiologist's impression: XR CHEST 2V PA AND LATERAL INDICATION: chest pain, r/o acute disease. COMPARISON: XR PORTABLE CHEST AP from 04/18/2019 XR CHEST 2V PA LATERAL from 05/29/2019 TECHNIQUE: 2D digital imaging was performed. FINDINGS: AP and lateral views of the chest were obtained. The heart size and pulmonary vasculature are within normal limits. There is poor inspiration with crowding of pulmonary vasculature. There do appear to be increased lung markings in the left base. This may represent atelectasis or pneumonia. No pleural effusions or pneumothoraces are identified. No acute osseous abnormality is present. IMPRESSION: Increased lung markings in the left base. This may represent atelectasis or pneumonia. Poor inspiratory effort. CT HEAD - STROKE PROTOCOL CLINICAL HISTORY: R sided head, r/o acute cva. TECHNIQUE: Imaging Protocol: Axial computed tomography images with coronal and sagittal reformatted images were created and reviewed COMPARISON: CT HEAD WO from 05/29/2019 FINDINGS: Ventricles and Extra axial spaces: Normal in size and morphology for the patient's age. Hemorrhage: None. Cerebral parenchyma: Normal. No findings of an acute territorial infarct are seen. Midline shift: None. Brainstem/Cerebellum: Normal. Calvarium: Normal. Visualized Paranasal sinuses/Mastoids: There is mild mucosal thickening seen in the ethmoid air cells and sphenoid sinuses bilaterally. Mucous retention cyst or polyp is seen in the right maxillary sinus. IMPRESSION: No acute intracranial process. Lab Data Lab results reviewed: Yes I reviewed the patient's lab results. Labs: Laboratory Tests Range/Units 06/26/19 06/26/19 13:25 13:25 WBC (4.4-10.8) k/cumm 8.07 RBC (4.50-6.00) m/cumm 4.23 L Hgb (13.5-17.5) g/dL 13.1 L Hct (40.0-50.0) % 38.3 L MCV (80-95) fL 90.5 MCH (27.0-33.0) pg 31.0 MCHC (32.0-36.0) g/dL 34.2 RDW (11.8-14.1) % 13.5 Plt Count (130-400) x1000/uL 295 MPV (8.0-11.0) fL 9.3 Immature Gran % 0.2 Neutrophils % 62.5 Lymphocytes % 27.0 Monocytes % 7.9 Eosinophils % 2.0 Basophils % 0.4 Absolute Neutrophils (1.2-6.7) k/cumm 5.04 Absolute Lymphocytes (1.2-3.4) k/cumm 2.18 Absolute Monocytes (0.11-0.7) k/cumm 0.64 Absolute Eosinophils (0.0-0.7) k/cumm 0.16 Absolute Basophils (0.0-0.2) k/cumm 0.03 Sodium (136-145) mmol/L 139 Potassium (3.5-5.1) mmol/L 3.8 Chloride (98-107) mmol/L 104 Carbon Dioxide (21.0-32.0) mmol/L 26.2 Anion Gap (3-11) mmol/L 8.8 BUN (7-18) mg/dL 14 Creatinine (0.70-1.30) mg/dL 1.05 Estimated GFR/1.73 m2 (mL/min/1.73m2) >= 60.00 Glucose (70-100) mg/dL 88 Calcium (8.5-10.1) mg/dL 8.7 Magnesium (1.8-2.4) mg/dL 1.7 L Total Bilirubin (0.2-1.0) mg/dL 0.2 AST (15-37) U/L 15 ALT (16-63) U/L 19 Alkaline Phosphatase (46-116) U/L 90 Troponin I (0.00-0.06) ng/mL < 0.05 Total Protein (6.4-8.2) g/dL 7.2 Albumin (3.4-5.0) g/dL 3.5 ECG Data Attestation: I personally reviewed and interpreted this ECG (s) as follows: Interpretation: Rate of 67, sinus, no acute ST elevation or depression. [place] 152. QTc 426. QRS 100. HPI General Mode of arrival: ambulatory. Date/Time Provider Initiated Documentation: 06/26/19 13:14. Limitations to Documentation: no limitations. Information obtained by: patient. HPI Narrative: Patient is a 53-year-old male with a history of atrial fibrillation on Eliquis, coronary artery disease with 9 cardiac stents, CVA, chronic back pain, hyperlipidemia, esophagitis who presents with headache, dizziness and chest pain since this morning. Patient states he awoke with right-sided sharp headache above his right ear which is currently 2/10. He states following this he developed dizziness which feels like a spinning sensation. He admits to nausea but denies any vomiting, shortness of breath. He states shortly after his headache and dizziness started, he developed left-sided chest pain which is intermittent, without radiation, feels sharp and currently 7/10. He denies any aggravating or alleviating factors of his pain. He states his dizziness is worse with any head movement. He denies blurry vision, extremity weakness or numbness, Related Data Home Medications Medication Instructions Recorded Confirmed lansoprazole [Prevacid SoluTab] 30 mg PO BID 06/18/13 06/26/19 isosorbide mononitrate 120 mg PO DAILY 10/16/15 06/26/19 Eliquis 5 mg PO BID 30 Days #60 tab 02/24/18 06/26/19 Rosuvastatin Calcium 40 mg PO DAILY 05/09/18 06/26/19 clopidogrel [Plavix] 75 mg PO DAILY 07/24/18 06/26/19 amitriptyline 25 mg PO HS PRN 09/07/18 06/26/19 hydrocodone 5 mg-acetaminophen 325 1 tab PO TID PRN MDD 3 TABS 10/02/18 06/26/19 mg tablet sertraline 50 mg PO DAILY 04/01/19 06/26/19 amlodipine 5 mg PO DAILY 04/18/19 06/26/19 bupropion HCl 300 mg PO DAILY 04/18/19 06/26/19 carvedilol 3.125 mg tablet 6.25 mg PO BID tab 06/14/19 06/26/19 meclizine 12.5 mg PO TID PRN #10 tab 06/26/19 Previous Rx's Medication Instructions Recorded Eliquis 5 mg PO BID 30 Days #60 tab 02/24/18 meclizine 12.5 mg PO TID PRN #10 tab 06/26/19 Allergies Allergy/AdvReac Type Severity Reaction Status Date / Time atorvastatin calcium AdvReac Intermediate liver Verified 06/26/19 13:19 [From Lipitor] problems niacin AdvReac Mild flushing Verified 06/26/19 13:19 adhesive from monitor tabs Allergy Intermediate jones Uncoded 06/26/19 13:19 General Stated Complaint: Dizzy/Sync MARQUIS: 2 Review of Systems Review of Systems ROS Unobtainable: All systems reviewed & are unremarkable except as noted in HPI and below Constitutional Constitutional: Reports as per HPI, Denies chills, Denies fever(s) and Reports headache(s) Eyes Eyes: Denies blurry vision ENT Ears, Nose, Mouth, and Throat: Reports dizziness, Reports headache(s), Denies sore throat and Denies throat swelling Cardiovascular Cardiovascular: Reports chest pain and Denies dyspnea Respiratory Respiratory: Denies cough and Denies dyspnea Gastrointestinal Gastrointestinal: Denies abdominal pain, Denies diarrhea and Denies vomiting Genitourinary Genitourinary: Denies hematuria and Denies dysuria Musculoskeletal Musculoskeletal: Denies back pain and Denies numbness Integumentary/Breasts Skin/Breast: Denies lesions and Denies rash Neurologic Neurologic: Reports dizziness, Reports headache(s), Denies focal weakness and Denies numbness Allergic/Immunologic Allergic/Immunologic: Denies throat swelling COUNTS INCLUDE 234 BEDS AT THE [facility] Medical History Anemia (Chronic) Atrial fibrillation (Chronic) Back pain, chronic (Chronic) Chest pain (Chronic) Coronary artery disease (Chronic) Depression with anxiety (Chronic) Diverticulosis (Chronic) Duodenal ulcer (Chronic) Dysesthesia (Chronic) Dyslipidemia (Chronic) Dyspepsia (Chronic) Esophagitis (Chronic) Gastritis (Chronic) Hemiplegia (Chronic) History of kidney cancer (Chronic) Hx of adenomatous polyp of colon (Chronic) Inguinal hernia (Acute) Ischemic stroke (Chronic) Lipoma of back (Chronic) Occipital headache (Chronic) Penile pain (Acute) Pulmonary nodules (Chronic) Recurrent inguinal hernia (Acute) Sleep apnea (Chronic) Spermatocele (Acute) Tobacco use (Chronic) Umbilical hernia (Acute) Surgical History cardiac cath (Inactive) 2013 Colonoscopy - MAC (Inactive 08/03/17) EGD - MAC (Inactive 08/03/17) Partial Nephrectomy (Inactive) left side for renal cell cancer. Has yearly CT scan. 2010 Repair of inguinal hernia (Inactive) right side at age 17 bilateral inguinal hernia repair, 11/10/17 Social History Smoking/Tobacco Use Status: Current every day Tobacco Type: cigarettes Smoking packs per day: 1 Smoking cigarettes per day: 20.0 Alcohol Intake: never Drug use: Never Substance use type: does not use Do you feel safe at home: Yes Do you feel safe in your relationship?: Yes Exam Const General: cooperative, healthy appearing and uncomfortable (mildly) Orientation: alert and awake HENMT Head: normal to inspection Ears: hearing grossly normal bilaterally, external ears normal and TM's normal bilaterally General nose exam: external nose normal Face and sinus: normal facial exam Mouth: oral mucosae normal Teeth and gingiva: dentition normal Throat: posterior oropharynx normal Eyes General: appearance normal, both eyes and all related structures Eyelids: eyelids normal Pupils: PERRL EOM: EOM intact bilaterally Neck Neck: normal visual inspection Lymphatic: no lymphadenopathy noted Chest Chest: normal inspection of the chest, no crepitus and tenderness (mild tenderness over loop recorder L anterior chest) Resp Effort & Inspection: normal respiratory effort and able to speak in complete sentences Auscultation: clear to auscultation bilaterally Cardio Rate: regular rate Rhythm: regular rhythm GI Inspection: normal to inspection Palpation: soft, not firm, no guarding, no hepatosplenomegaly, no masses and nontender Auscultation: normal bowel sounds Back/Spine/Pelvis Back: no CVA tenderness Skin General skin exam: no rashes or lesions noted Neuro General: alert and awake Cranial Nerves: CN's II-XI intact bilaterally Cognition: normal cognition Speech: speech normal Gait: normal gait Motor: muscle tone normal throughout and strength 5/5 throughout Sensory Exam: no sensory deficits noted Extrem General: normal to inspection, full ROM, normal capillary refill and no edema Psych Appearance: grossly normal Mental Status: mental status grossly normal Speech and Movement: speech and movement normal Affect: normal affect Thought Process: normal Course Vital Signs Vital signs: Vital Signs Temperature 97.7 F 06/26/19 13:15 Pulse 64 06/26/19 13:15 Respiratory Rate 17 06/26/19 13:15 Blood Pressure 133/88 06/26/19 13:15 Pulse Oximetry 97 06/26/19 13:15 Temperature 97.7 F 06/26/19 13:15 Temperature Source Skin 06/26/19 13:15 Pulse 64 06/26/19 13:15 Respiratory Rate 17 06/26/19 13:15 Respiratory Effort Non-Labored 06/26/19 13:18 Blood Pressure 133/88 06/26/19 13:15 Blood Pressure Position Sitting 06/26/19 13:15 Pulse Oximetry 97 06/26/19 13:15 Oxygen Delivery Method Room Air 06/26/19 13:15 Oxygen Flow Rate 0 06/26/19 13:15 Pain Level 8 06/26/19 13:15
[2019-06-26] MEDS: Normal Saline 500 ML IV (13:30)
--- NOTE | 2019-06-26 13:32 | DI.RAD_ITS ---
EXAM: XR CHEST 2V PA AND LATERAL INDICATION: chest pain, r/o acute disease. COMPARISON: XR PORTABLE CHEST AP from 04/18/2019 XR CHEST 2V PA LATERAL from 05/29/2019 TECHNIQUE: 2D digital imaging was performed. FINDINGS: AP and lateral views of the chest were obtained. The heart size and pulmonary vasculature are within normal limits. There is poor inspiration with crowding of pulmonary vasculature. There do appear t o be increased lung markings in the left base. This may represent atelectasis or pneumonia. No pleu ral effusions or pneumothoraces are identified. No acute osseous abnormality is present. IMPRESSION: Increased lung markings in the left base. This may represent atelectasis or pneumonia. Poor inspiratory effort.
--- NOTE | 2019-06-26 13:32 | DI.CT_ITS ---
EXAM: CT HEAD - STROKE PROTOCOL CLINICAL HISTORY: R sided head, r/o acute cva. TECHNIQUE: Imaging Protocol: Axial computed tomography images with coronal and sagittal reformatted images were created and reviewed COMPARISON: CT HEAD WO from 05/29/2019 FINDINGS: Ventricles and Extra axial spaces: Normal in size and morphology for the patient's age. Hemorrhage: None. Cerebral parenchyma: Normal. No findings of an acute territorial infarct are seen. Midline shift: None. Brainstem/Cerebellum: Normal. Calvarium: Normal. Visualized Paranasal sinuses/Mastoids: There is mild mucosal thickening seen in the ethmoid air cells and sphenoid sinuses bilaterally. Mucous retention cyst or polyp is seen in the right maxillary sin us. IMPRESSION: No acute intracranial process. DATA REPOSITORY: All CT scans at this facility are submitted to the National Radiology Data Registry (NRDR) Dose Index Registry (DIR) with the [employer] ([employer]). RADIATION OPTIMIZATION: All CT scans at this facility use at least one of these dose optimization te chniques: automated exposure control; mA and/or kV adjustment per patient size (includes targeted exa ms where dose is matched to clinical indication); or iterative reconstruction. CT
[2019-06-26] MEDS: Meclizine 25 MG TAB PO (13:41)
[2019-06-26 13:46] LABS: Abs Immature Grans 0.02 k/cumm (0.0-0.09); Absolute Basophil Count 0.03 k/cumm (0.0-0.2); Absolute Eosinophil Count 0.16 k/cumm (0.0-0.7); Absolute Lymphocyte Count 2.18 k/cumm (1.2-3.4); Absolute Monocyte Count 0.64 k/cumm (0.11-0.7); Absolute Neutrophil Count 5.04 k/cumm (1.2-6.7); Basophils % 0.4; HCT 38.3 % (40.0-50.0); HGB 13.1 g/dL (13.5-17.5); Immature Grans % 0.2; Mean Corp. HGB Concentration 34.2 g/dL (32.0-36.0); Mean Corpuscular Volume 90.5 fL (80-95); Mean Platelet Volume 9.3 fL (8.0-11.0); Monocytes % 7.9; Neutrophils % 62.5; Platelet Count 295 x1000/uL (130-400); RBC 4.23 m/cumm (4.50-6.00); RBC Distribution Width 13.5 % (11.8-14.1); White Blood Cell Count 8.07 k/cumm (4.4-10.8)
[2019-06-26 14:12] LABS: ALT 19 U/L (16-63); AST 15 U/L (15-37); Albumin 3.5 g/dL (3.4-5.0); Alkaline Phosphatase 90 U/L (46-116); Anion Gap 8.8 mmol/L (3-11); BUN 14 mg/dL (7-18); Bilirubin, Total 0.2 mg/dL (0.2-1.0); CO2 26.2 mmol/L (21.0-32.0); CREATININE 1.05 mg/dL (0.70-1.30); Calcium 8.7 mg/dL (8.5-10.1); Chloride 104 mmol/L (98-107); Glucose 88 mg/dL (70-100); Magnesium 1.7 mg/dL (1.8-2.4); Potassium 3.8 mmol/L (3.5-5.1); Sodium 139 mmol/L (136-145); Total Protein 7.2 g/dL (6.4-8.2); Troponin I < 0.05 ng/mL (0.00-0.06)
[2019-06-26] MEDS: Prochlorperazine 10 MG/2 ML VIAL IVP (14:15)
== END 2019-06-26 15:18 | disposition left against medical advice (07) ==
PROVIDERS: Emergency Provider Physician Assistant; PCP Internal Medicine
DX: R42 Dizziness and giddiness (principal); R07.89 Other chest pain; R51 Headache
CPT/HCPCS: 36415; 80053; 93005; 96361; 96374; 99285; 70450; 71046; 83735; 84484; 85025; 93010; J0780

== ENCOUNTER 2019-06-30 07:20 | Emergency (ER) | payer BC, SELFPAY ==
[2019-06-30] VITALS (65 sets, daily range): BP systolic 93–135; BP diastolic 46–76; PULSE 71–95; RESP 14–26; TEMP 36.6–38.1; O2SAT 93–99
--- NOTE | 2019-06-30 07:40 | DI.RAD_ITS ---
EXAM: XR CHEST 2V PA LATERAL INDICATION: Substernal discomfort. COMPARISON: XR CHEST 2V PA LATERAL from 06/26/2019 TECHNIQUE: 2D digital imaging was performed. FINDINGS: PA and lateral chest was performed and shows apparent coronary artery stents. Heart is not enlarged. Lungs are grossly clear and have cleared since prior examination of June 30. No pleural effusion seen. IMPRESSION: No evidence of acute process
--- NOTE | 2019-06-30 07:41 | ED.GENADUL_ITS ---
Discharge Plan Disposition Patient Disposition: HOME Discharge Details Chief Complaint: Chest Pain Clinical Impression: Enteritis, Diverticulitis, Lung nodule, Chest pain Primary Care Provider: Delonte Corral ED Provider: Vinh Barton Home Meds and New Rx's Prescriptions: New amoxicillin-pot clavulanate 875-125 mg tablet 1 tab PO BID Qty: 19 RF: 0 Continued hydrocodone-acetaminophen 5-325 mg tablet 1 tab PO TID MDD 3 TABS PRNRF: 0 carvedilol 3.125 mg tablet 6.25 mg PO BID RF: 0 Eliquis 5 MG tablet 5 mg PO BID 30 Days Qty: 60 RF: 4 lansoprazole [Prevacid SoluTab] 30 MG tablet,disintegrat, delay rel 60 mg PO BID RF: 0 isosorbide mononitrate 120 MG tablet extended release 24 hr 120 mg PO DAILY RF: 0 Rosuvastatin Calcium 40 MG tablet 40 mg PO DAILY RF: 0 clopidogrel [Plavix] 75 mg Tablet 75 mg PO DAILY RF: 0 amitriptyline 25 mg Tablet 25 mg PO HS PRNRF: 0 bupropion HCl 150 mg Tablet Extended Release 24 Hr 300 mg PO DAILY RF: 0 amlodipine 10 mg tablet See Rx Instructions .ROUTE .COMPLEX RF: 0 Discharge Instructions Instructions: Chest Pain (ED) Additional Instructions: Please take full course of antibiotic as prescribed. Please follow-up with your primary care physician. Be sure to review final results of radiology studies with your PCP. Incidental findings on CT include small nodules in your lung. Patient will discuss this with your doctor. Please contact your primary care physician to arrange follow-up. Return to the ER for any worsening or new concerning symptoms. Referrals: Delonte Corral MD [Primary Care Provider] - Discharge Data Discharge Date/Time-TO BE ENTERED AT DEPARTURE: 06/30/19 16:27 Medical Decision Making <Mik Christy MD - Last Filed: 06/30/19 07:44> 53-year-old male smoker with a history of both ischemic and nonischemic chest discomfort in the past. States during the night he had some substernal discomfort states is rated 4 out of 10 it was associated with a number of loose and watery stools. No nausea or vomiting, no abdominal distention. He denies to me shortness of breath or recent cough. He does continue to smoke. His vital signs are unremarkable, his exam is reassuring. Initial EKG shows a normal sinus rhythm with a rate of 90, the QRS is narrow, there is no ST segment elevation present. IV placed and screening labs obtained. As the patient presented just prior to change of shift, he will be signed out to Dr. Barton pending evaluation of his diagnostic studies. <Vinh Barton MD - Last Filed: 07/01/19 09:24> 8:00 --care signed out by Dr. Christy with plan to follow-up on troponin and reassess the patient. 9:00 --initial troponin negative. Plan to check delta troponin and repeat ECG. 10:50 --patient reassessed and now notes worsening abdominal pain. Concerned that his hernia may be inflamed. Patient is diffusely tender. Plan to CT abdomen pelvis to assess for acute surgical process. Blood pressure is 80 systolic. Likely related to hypovolemia diarrhea. I will give IV fluid bolus and reassess. 15:40 --CT abdomen pelvis interpreted by radiology: IMPRESSION: 1. Bowel wall thickening in the ileum consistent with enteritis. (4:52-78.) There are mild adjacent inflammatory changes. 2. Diverticulosis of the rectosigmoid. There is bowel wall thickening in the rectosigmoid which may represent colitis and/or concomitant diverticulitis.. 3. Small nodules right middle lobe 4 mm and 4.6 mm. 4. Opacities in the lower lobes may represent atelectasis or pneumonia. 5. Lateral hernia contains bowel (4:48). This was present on the prior study.. Patient reassessed and has remained stable here. BP improved. Patient has requested oral fluids and is tolerating oral intake well. Plan to treat with Augmentin. Patient will require close follow-up with his PCP. All results and treatment plan discussed with the patient. Disposition decision was made weighing the risks and benefits of hospitalization versus outpatient treatment, the risk for further decompensation, and the patient's wishes. The patient was stable and requested discharge. Prior to discharge, my usual and customary return precautions were reviewed with the patient - this included follow-up instructions and reason to return to the emergency department if condition worsens, does not improve as expected, or other new concerns arise. HPI <Mik Christy MD - Last Filed: 06/30/19 07:44> General Mode of arrival: ambulatory . Date/Time Provider Initiated Documentation: 06/30/19 07:32 . Limitations to Documentation: no limitations . Information obtained by: patient . History of Present Illness 53 year old M presents to the emergency department with the chief complaint of Chest pain this morning with associated diarrhea, described as moderate and similar to prior episodes, Quality is described as constant, and is localized to the chest. Patient reports no radiation. Patient started experiencing this hour(s) and it has been constant. No relieving factors improve symptom(s), No exacerbating factors reported . Patient notes other (Loose stool). Patient did receive the following treatments prior to arrival, none Related Data Home Medications Medication Instructions Recorded Confirmed lansoprazole [Prevacid SoluTab] 60 mg PO BID 06/18/13 06/30/19 isosorbide mononitrate 120 mg PO DAILY 10/16/15 06/29/19 Eliquis 5 mg PO BID 30 Days #60 tab 02/24/18 06/30/19 Rosuvastatin Calcium 40 mg PO DAILY 05/09/18 06/29/19 clopidogrel [Plavix] 75 mg PO DAILY 07/24/18 06/30/19 amitriptyline 25 mg PO HS PRN 09/07/18 06/30/19 hydrocodone 5 mg-acetaminophen 325 1 tab PO TID PRN MDD 3 TABS 10/02/18 06/30/19 mg tablet bupropion HCl 300 mg PO DAILY 04/18/19 06/30/19 carvedilol 3.125 mg tablet 6.25 mg PO BID tab 06/14/19 06/30/19 amlodipine 10 mg tablet See Rx Instructions .ROUTE .COMPLEX 06/29/19 06/30/19 amoxicillin-pot clavulanate 1 tab PO BID #19 tab 06/30/19 Previous Rx's Medication Instructions Recorded Eliquis 5 mg PO BID 30 Days #60 tab 02/24/18 amoxicillin-pot clavulanate 1 tab PO BID #19 tab 06/30/19 Allergies Allergy/AdvReac Type Severity Reaction Status Date / Time atorvastatin calcium AdvReac Intermediate liver Verified 06/29/19 09:18 [From Lipitor] problems niacin AdvReac Mild flushing Verified 06/29/19 09:18 adhesive from monitor tabs Allergy Intermediate jones Uncoded 06/29/19 09:18 General Stated Complaint: Chest Pain MARQUIS: 3 Review of Systems <Mik Christy MD - Last Filed: 06/30/19 07:44> Review of Systems Narrative: Recent change to amlodipine. No known sick contacts. Denies nausea or vomiting. He states that he has otherwise recently been well. Has plans for inguinal hernia repair in 2 weeks. 8 systems reviewed and otherwise negative. PFSH <Mik Christy MD - Last Filed: 06/30/19 07:44> Medical History Anemia (Chronic) Atrial fibrillation (Chronic) Back pain, chronic (Chronic) Chest pain (Chronic) Coronary artery disease (Chronic) Depression with anxiety (Chronic) Diverticulosis (Chronic) Duodenal ulcer (Chronic) Dysesthesia (Chronic) Dyslipidemia (Chronic) Dyspepsia (Chronic) Esophagitis (Chronic) Gastritis (Chronic) Hemiplegia (Chronic) History of kidney cancer (Chronic) Hx of adenomatous polyp of colon (Chronic) Inguinal hernia (Acute) Ischemic stroke (Chronic) Lipoma of back (Chronic) Occipital headache (Chronic) Penile pain (Acute) Pulmonary nodules (Chronic) Recurrent bilateral inguinal hernia (Acute) Recurrent inguinal hernia (Acute) Sleep apnea (Chronic) Spermatocele (Acute) Tobacco use (Chronic) Umbilical hernia (Acute) Surgical History cardiac cath (Inactive) 2013 Colonoscopy - MAC (Inactive 08/03/17) EGD - MAC (Inactive 08/03/17) Partial Nephrectomy (Inactive) left side for renal cell cancer. Has yearly CT scan. 2010 Repair of inguinal hernia (Inactive) right side at age 17 bilateral inguinal hernia repair, 11/10/17 Social History Smoking/Tobacco Use Status: Current every day Tobacco Type: cigarettes Alcohol Intake: never Drug use: Never Substance use type: does not use Do you feel safe at home: Yes Do you feel safe in your relationship?: Yes Exam <Mik Christy MD - Last Filed: 06/30/19 07:44> Narrative Exam Narrative: GEN: awake, alert, oriented 3. Pleasant, well groomed, interactive. HEAD: Normocephalic, atraumatic ENT: Mucous membranes moist, oropharynx unremarkable, External ear exam unremarkable EYES: PERRL, EOMI NECK: Full ROM, no CANDACE, no menigismus CHEST/RESP: Nontender, clear to auscultation bilateral, no wheeze/rhonchi/rales CARDIOVASCULAR: RRR, no murmur, rub winter. 2+ Rad pulse bilateral ABDOMEN: Soft, nontender, no mass. +Bowel sounds EXT: Full ROM, no edema, no rash Neuro: Grossly normal neurologic exam, conversant, interactive. Psych: Speech fluent, thoughts congruent, affect normal Course <Mik Christy MD - Last Filed: 06/30/19 07:44> Vital Signs Vital signs: Vital Signs Temperature 36.6 C 06/30/19 07:24 Pulse 89 06/30/19 07:24 Respiratory Rate 16 06/30/19 07:24 Blood Pressure 135/76 06/30/19 07:24 Pulse Oximetry 98 06/30/19 07:24 Temperature 36.6 C 06/30/19 07:24 Temperature Source Skin 06/30/19 07:24 Pulse 89 06/30/19 07:24 Respiratory Rate 18 06/30/19 07:30 Respiratory Effort Non-Labored 06/30/19 07:30 Respiratory Depth Normal 06/30/19 07:30 Respiratory Pattern Normal 06/30/19 07:30 Blood Pressure 135/76 06/30/19 07:24 Blood Pressure Position Supine 06/30/19 07:24 Pulse Oximetry 98 06/30/19 07:24 Oxygen Delivery Method Room Air 06/30/19 07:24 Oxygen Flow Rate 0 06/30/19 07:24 Pain Level 6 06/30/19 07:24 Sign Out <Mik Christy MD - Last Filed: 06/30/19 07:44> Sign Out Data: Sign Out Comment: Follow-up diagnostic studies and reevaluation Last updated by Mik Christy MD at 06/30/19 07:45
--- NOTE | 2019-06-30 07:45 | NUR.NOTE ---
Nursing Note: pt transported to x-ray
[2019-06-30 07:54] LABS: Abs Immature Grans 0.04 k/cumm (0.0-0.09); Absolute Basophil Count 0.03 k/cumm (0.0-0.2); Absolute Eosinophil Count 0.07 k/cumm (0.0-0.7); Absolute Lymphocyte Count 0.74 k/cumm (1.2-3.4); Absolute Monocyte Count 0.84 k/cumm (0.11-0.7); Absolute Neutrophil Count 15.01 k/cumm (1.2-6.7); Basophils % 0.2; Eosinophils % 0.4; HCT 41.8 % (40.0-50.0); HGB 14.3 g/dL (13.5-17.5); Immature Grans % 0.2; Lymphocytes % 4.4; Mean Corp. HGB Concentration 34.2 g/dL (32.0-36.0); Mean Corpuscular Volume 90.7 fL (80-95); Mean Platelet Volume 9.3 fL (8.0-11.0); Neutrophils % 89.8; Platelet Count 292 x1000/uL (130-400); RBC 4.61 m/cumm (4.50-6.00); RBC Distribution Width 13.8 % (11.8-14.1); White Blood Cell Count 16.72 k/cumm (4.4-10.8)
[2019-06-30 08:06] LABS: ALT 17 U/L (16-63); AST 16 U/L (15-37); Albumin 3.6 g/dL (3.4-5.0); Alkaline Phosphatase 92 U/L (46-116); Anion Gap 11.5 mmol/L (3-11); BUN 18 mg/dL (7-18); Bilirubin, Total 0.4 mg/dL (0.2-1.0); CO2 24.5 mmol/L (21.0-32.0); CREATININE 1.17 mg/dL (0.70-1.30); Calcium 8.9 mg/dL (8.5-10.1); Chloride 103 mmol/L (98-107); Glucose 143 mg/dL (70-100); Magnesium 1.8 mg/dL (1.8-2.4); Potassium 4.1 mmol/L (3.5-5.1); Sodium 139 mmol/L (136-145); Total Protein 7.6 g/dL (6.4-8.2)
[2019-06-30 08:07] LABS: Troponin I < 0.05 ng/mL (0.00-0.06)
--- NOTE | 2019-06-30 08:44 | DI.VRAD_ITS ---
PROCEDURE INFORMATION: Exam: XR Chest, 2 Views Exam date and time: 06/30/2019 8:17 AM Clinical history: 53 years old, male; Shortness of breath TECHNIQUE: Imaging protocol: XR of the chest Views: 2 views. COMPARISON: CR XR CHEST 2V PA LATERAL 06/26/2019 2:06 PM FINDINGS: Lungs: Unremarkable. No consolidation. Pleural space: Unremarkable. No pleural effusion. No pneumothorax. Heart/Mediastinum: Unremarkable. No cardiomegaly. Bones/joints: Unremarkable. Other findings: Overlying EKG wires IMPRESSION: No acute process Dictated and Authenticated by: Shayan Taylor MD. Ordering:CHIKIS Houser MD
--- NOTE | 2019-06-30 10:53 | DI.CT_ITS ---
EXAM: CT ABDOMEN PELVIS W CLINICAL HISTORY: diffuse pain, loose stool, leukocytosis. TECHNIQUE: The examination was carried out according to the usual protocol. COMPARISON: CT ABDOMEN PELVIS W from 04/01/2019 XR CHEST 2V PA LATERAL from 06/30/2019 FINDINGS: Small nodules are noted in the right middle lobe measuring 4 and 4.6 millimeters. Follow-up chest CT suggested in 12 months following Fleischner society guidelines Gallbladder is normal. There are no stones or ductal dilatation. The pancreas and spleen are normal. Adrenals are normal. Non-obstructing left renal calculus is identified. Note is made of bowel wall th ickening in the ileum consistent with enteritis. There are mild inflammatory changes adjacent to the se loops. There is diverticulosis involving the rectosigmoid. Thickening of the rectosigmoid could represent colitis or concomitant diverticulitis. There is no evidence of an acute appendix. There is no evidence of free air or free fluid in the intraperitoneal space. There is no evidence of an ao rtic aneurysm. There is no evidence of lymphadenopathy. The bladder is decompressed. The reproductive organs as visualized are intact. Bony structures are u nremarkable. The soft tissues are unremarkable. IMPRESSION: Wall thickening of the ileum is consistent with enteritis. There are mild adjacent inflammatory murphy es. There is diverticulosis of the rectosigmoid. There is bowel wall thickening in the rectosigmoid which could represent colitis or concomitant diverticulitis. Pulmonary nodules are noted in the right lobe, follow-up chest CT recommended in 12 months Follow-up
[2019-06-30] MEDS: Normal Saline 1,000 ML 1000 ML IV (11:00)
[2019-06-30 11:24] LABS: Troponin I < 0.05 ng/mL (0.00-0.06)
[2019-06-30] MEDS: Omnipaque 350 MG/ML 100 ML BTL IJ (13:56)
--- NOTE | 2019-06-30 14:50 | DI.VRAD_ITS ---
PROCEDURE INFORMATION: Exam: CT Abdomen and pelvis with contrast Exam date and time: 06/30/2019 10:54 AM Clinical history: 53 years old, male; Other: Leukocytosis TECHNIQUE: Imaging protocol: Computed tomography of the abdomen and pelvis with intravenous contrast. COMPARISON: CT ABDOMEN PELVIS W 04/01/2019 2:36 PM FINDINGS: Lungs: Small nodules right middle lobe 4 mm and 4.6 mm. Opacities in the lower lobes may represent atelectasis or pneumonia. Liver: Normal. No mass. Gallbladder and bile ducts: Normal. No calcified stones. No ductal dilation. Pancreas: Normal. No ductal dilation. Spleen: Normal. No splenomegaly. Adrenals: Normal. No mass. Kidneys and ureters: Nonobstructing left renal calculus Stomach and bowel: Bowel wall thickening in the ileum consistent with enteritis. (4:52-78.) There are mild adjacent inflammatory changes. Diverticulosis of the rectosigmoid. There is bowel wall thickening in the rectosigmoid which may represent colitis and/or concomitant diverticulitis.. Lateral hernia contains bowel (4:48). This was present on the prior study.. Appendix: No evidence of appendicitis. Intraperitoneal space: Unremarkable. No free air. No significant fluid collection. Vasculature: Unremarkable. No abdominal aortic aneurysm. Lymph nodes: Unremarkable. No enlarged lymph nodes. Bladder: Bladder is decompressed Reproductive: Unremarkable as visualized. Bones/joints: Unremarkable. No acute fracture. Soft tissues: Unremarkable. IMPRESSION: 1. Bowel wall thickening in the ileum consistent with enteritis. (4:52-78.) There are mild adjacent inflammatory changes. 2. Diverticulosis of the rectosigmoid. There is bowel wall thickening in the rectosigmoid which may represent colitis and/or concomitant diverticulitis.. 3. Small nodules right middle lobe 4 mm and 4.6 mm. 4. Opacities in the lower lobes may represent atelectasis or pneumonia. 5. Lateral hernia contains bowel (4:48). This was present on the prior study.. Dictated and Authenticated by: Shayan Taylor MD. Ordering:DARIANA Justice MD
[2019-06-30] MEDS: Amoxicillin 875/Clav. 125 TAB PO (16:22)
== END 2019-06-30 16:27 | disposition home or self-care (01) ==
PROVIDERS: Emergency Medicine; Emergency Provider Student in an Organized Health Care Education/Training Program; PCP Internal Medicine
DX: A04.9 Bacterial intestinal infection, unspecified (principal); K57.30 Diverticulosis of large intestine without perforation or abscess without bleeding; R91.1 Solitary pulmonary nodule; R07.89 Other chest pain
CPT/HCPCS: 36415; 80053; 93005; 96360; 99285; 71046; 74177; 83735; 84484; 85025; 93010; 99284; J3490

== ENCOUNTER 2019-07-06 07:35 | Outpatient (CLI) | payer BC, SELFPAY ==
[2019-07-06 07:53] LABS: Abs Immature Grans 0.03 k/cumm (0.0-0.09); Absolute Basophil Count 0.04 k/cumm (0.0-0.2); Absolute Eosinophil Count 0.25 k/cumm (0.0-0.7); Absolute Lymphocyte Count 2.38 k/cumm (1.2-3.4); Absolute Monocyte Count 0.75 k/cumm (0.11-0.7); Basophils % 0.4; Eosinophils % 2.6; HCT 39.8 % (40.0-50.0); HGB 13.5 g/dL (13.5-17.5); Immature Grans % 0.3; Lymphocytes % 24.4; Mean Corp. HGB Concentration 33.9 g/dL (32.0-36.0); Mean Corpuscular Hemoglobin 30.9 pg (27.0-33.0); Mean Corpuscular Volume 91.1 fL (80-95); Monocytes % 7.7; Neutrophils % 64.6; Platelet Count 301 x1000/uL (130-400); RBC 4.37 m/cumm (4.50-6.00); RBC Distribution Width 13.2 % (11.8-14.1); White Blood Cell Count 9.75 k/cumm (4.4-10.8)
== END 2019-07-06 07:55 ==
PROVIDERS: PCP Internal Medicine; Visit Provider Surgery
DX: K57.32 Diverticulitis of large intestine without perforation or abscess without bleeding (principal)
CPT/HCPCS: 36415; 85025

== ENCOUNTER 2019-07-11 08:47 | Day surgery (SDC) | payer BC, SELFPAY ==
[2019-07-11] VITALS (7 sets, daily range): BP systolic 102–127; BP diastolic 66–84; PULSE 64–68; RESP 11–18; TEMP 36–36.5; O2SAT 93–99
--- NOTE | 2019-07-11 06:53 | W.PM.OP ---
Date of service: 07/11/19 Time of Service: 13:47 Operative Note Operative Note DATE OF PROCEDURE: 07/11/19 PRE-OP DIAGNOSIS: 1. Umbilical hernia 2. Recurrent bilateral inguinal hernia POST-OP DIAGNOSIS: same PROCEDURE: 1.Umbilical hernia repair 2. Recurrent bilateral inguinal hernia repair with mesh SURGEON: Brianne Marinelli PARKING ANALYST: Jeremy Corado ANESTHESIA: GETA (ASA 3/ Juni Gonzalez, JAKOB) and regional (Bilateral TAP block) PATHOLOGY: none sent COMPLICATIONS: None Patient was transported to: PACU Patient's condition: stable Implants: Left implant-LOT [id number] REF [id number] Right implant- REF [id number] LOT [id number] Indications: Mr. Anne is a pleasant 53 year old male who had bilateral inguinal hernia repairs in 2018. He unfortunately has recurred both in [place]. They are not palpable. he also complaint of an umbilical hernia. On exam it was very small and reducible. Risks, benefits and complications were reviewed in detail. He is at increased risk of chronic pain and injury to the vas and vessels. He is also at risk of cardiac complications due to his extensive Cardiac history. Findings: bilateral small <2 cm recurrent hernias medially right next to the lacunar ligament Umbilical hernia was less the 1 cm in size and was therefore repaired primarily. Procedure Description: After informed consent was obtained the patient was taken to the operating room and placed in a supine position. Monitors and SCDs were applied and a timeout was done. The patient's name, date of , procedure type, procedure site, allergies to medications, preoperative antibiotic, and DVT prophylaxis were all reviewed. Fire risk was assessed. Next anesthesia did a tap block bilaterally under ultrasound guidance. Please see their separate dictation. Once anesthesia was done the abdomen was clipped around the umbilicus. The inguinal area had been clipped prior in [facility]. The abdomen was prepped and draped in a sterile surgical fashion. 1% lidocaine was injected into the dermis along both previous inguinal hernia scars. An incision was made with a 15 blade in the left lower quadrant. Dissection was done with cautery through the subcutaneous tissues and Carlos's fascia down to the external oblique fascia. There was a lot of scar tissue from the previous surgery. The external ring was identified and the external oblique fascia was opened sharply through the external ring. The old mesh was palpated and gently dissected away from the external oblique fascia were possible. The cord structures were identified and again gently dissected away from the old mesh and the external oblique fascia. This was done mostly in a blunt manner. Once the cord structures were dissected away there were followed down into the scrotum with my finger. The internal ring was noted to be tight there is no hernia recurrence here. The old mesh covered the floor of the hernia defect well except for right at the lacunar ligament there is a small area where the mesh had pulled away. A 1.5 cm hernia defect was identified. A 3 x 6 mesh was cut to size and then attached to the lacunar ligament with 2-0 Prolene. The mesh was then secured to the external oblique fascia and old mesh all the way up and around the cord structures. There was no tension around the mesh. Once secured the area was irrigated and suctioned. No bleeding was identified. Because of all the scar tissue I could not bring the external oblique fascia back together. The Carlos's fascia was reapproximated with 3-0 Vicryl. The dermis was reapproximated with 4-0 Vicryl. The skin was cleaned and dried and skin affix was applied. Next an incision was made with a 15 blade in the right inguinal area along the old scar. Cautery was used to go down through the subcutaneous tissues and Carlos's fascia down to the external oblique fascia. The external ring was identified. I was able to place my finger under the external ring and then the external oblique fascia was opened making sure that the cord structures and the old mesh were not in the way. The cord structures were then gently dissected away from the scar tissue. The mesh was inspected. No recurrence was noted along the internal ring. Most of the floor of the mesh was nicely secured but again a small 1.5 cm defect was identified medially. I was able to place my finger through the opening. There is so much scar tissue that I did not want to continue dissecting around the cord structures in order to avoid any damage. A small plug was therefore placed into the defect and secured with 2-0 Prolene to the lacunar ligament and old mesh. The cord structures were identified and there was no bleeding noted. Again the external oblique fascia was not closed due to scar tissue. The Carlos's fascia was closed with 3-0 Vicryl and the dermis was closed with 4-0 Vicryl. The skin was cleaned and dried and skin affix was applied. Next attention was given to his umbilical hernia. A small incision was made with a 15 blade below the umbilicus. Dissection was continued through the subcutaneous tissue with cautery. Using a Louise clamp a path was created behind the umbilical stalk. Using the Louise clamp as a backing the umbilical stalk was transected with cautery. Unfortunately I got a little too close to the skin and ended up making a small less than 1 cm hole in this skin of the umbilicus. The skin was lifted and a small fat-containing umbilical hernia was identified. The hernia measured less than 1 cm. The fatty tissue was amputated. The fascia was grasped and the hernia defect was closed using 0 Vicryl, [id number] closure. The opening in the skin was reapproximated with 0 Vicryl as well as 2-0 Prolene. The skin was then reattached down to the fascia with another stage III 0 Vicryl suture. The subcutaneous tissue was reapproximated with 3-0 Vicryl and the dermis was closed with 4-0 Vicryl. The skin was cleaned and dried and Mastisol and Steri-Strips were applied. A small pressure dressing was placed into the umbilicus and secured with tape. At this point the patient was woken up the LMA was removed and he was taken back to recovery in stable condition. There were no immediate complications and the patient tolerated the procedure. Sponge, instrument and needle counts were correct at the end of the case x2.
--- NOTE | 2019-07-11 06:55 | PDOC.DSDIS_ITS ---
Discharge Plan Disposition Patient Disposition: HOME Condition: Good Discharge Details Reason For Visit: BIH repair and [facility] repair Attending Provider: Brianne Marinelli Primary Care Provider: Delonte Corral Home Meds and New Rx's Prescriptions: New oxycodone 5 mg tablet 5 mg PO Q6H PRN (Reason: pain) Qty: 14 RF: 0 Continued carvedilol 3.125 mg tablet 6.25 mg PO BID RF: 0 Eliquis 5 MG tablet 5 mg PO BID 30 Days Qty: 60 RF: 4 sertraline 50 mg Tablet 50 mg PO DAILY RF: 0 lansoprazole [Prevacid SoluTab] 30 MG tablet,disintegrat, delay rel 60 mg PO DAILY RF: 0 isosorbide mononitrate 120 MG tablet extended release 24 hr 120 mg PO DAILY RF: 0 Rosuvastatin Calcium 40 MG tablet 40 mg PO DAILY RF: 0 clopidogrel [Plavix] 75 mg Tablet 75 mg PO DAILY RF: 0 amitriptyline 25 mg Tablet 25 mg PO HS PRNRF: 0 bupropion HCl 150 mg Tablet Extended Release 24 Hr 300 mg PO DAILY RF: 0 amlodipine 10 mg tablet See Rx Instructions .ROUTE .COMPLEX RF: 0 Discontinued hydrocodone-acetaminophen 5-325 mg tablet 1 tab PO TID MDD 3 TABS PRNRF: 0 amoxicillin-pot clavulanate 875-125 mg tablet 1 tab PO BID Qty: 19 RF: 0 Discharge Instructions Instructions: Ventral Hernia Repair (DC), Inguinal Hernia Repair (DC) Additional Instructions: Activity at Home after surgery: 1. Make sure you walk outside at least 4 times per day 2. You should be able to climb a flight of stairs 3. No driving while in pain or taking pain medications 4. No strenuous activity or heavy lifting for 6 weeks Diet, Nutrition, & wound healin. Avoid alcohol until after you are recovered from your surgery 2. Make sure to eat plenty of lean protein (meat, fish, eggs, cottage cheese, beans) 3. Eat a variety of fruits and vegetables. Eat plenty of high fiber foods to avoid constipation. 4. Drink plenty of liquids to stay hydrated and avoid constipation Pain Medications: 1. Tylenol 650 mg every 6 hours 2. If a narcotic has been prescribed take as directed only for breakthrough pain For Constipation: 1. Take Milk of Magnesia or MiraLax as needed for constipation Other: 1. You may shower daily. Do not scrub the incisions 2. Do not soak the incisions for 1 week 3. You may alternate ice and heat as needed for pain and swelling Wound Care: 1. Keep the incisions clean and dry 2. keep the umbilical incision covered. You may have some discharge from the umbilical repair due to a small whole in the skin that was made accidentaly. As long as the discharge is not thick it is OK. Please keep the area clean, dry and covered either with large band-aid or 4x4 and tape. Please call our office if you develop: 1. Fevers >101.5 2. Nausea or Vomiting 3. Worsening pain 4. Redness and thick discharge from the wounds If after hours please call the Hospital at and ask to speak to the on-call surgeon Referrals: Brianne Marinelli MD [ [facility] STAFF PHYSICIAN] - Activity:: No lifting, pulling and pushing >20 lb x 6 weeks Diet:: As Tolerated Discharge Orders Discharge Orders: Discharge Order (Routine); Ordered 07/11/19 Ordered By: Brianne Marinelli DS: Diagnosis Discharge Diagnosis (1) Recurrent bilateral inguinal hernia: Status: Acute (2) Umbilical hernia: Status: Acute (3) Repair of inguinal hernia: Status: Inactive
[2019-07-11] MEDS: Gabapentin 300 MG CAP 600 MG PO (09:29)
[2019-07-11] MEDS: Acetaminophen 500 MG TAB 1000 MG PO (09:29)
[2019-07-11] MEDS: Celecoxib 200 MG CAP PO (09:30)
[2019-07-11] MEDS: Normal Saline 1,000 ML 80 ML IV ×2 (09:35→12:02)
[2019-07-11] MEDS: ceFAZolin 2 GM/50 ML BAG IVPB (12:02)
[2019-07-11] MEDS: Bupivacaine 0.25% Pres-Free 30 ML VIAL (12:15)
[2019-07-11] MEDS: Bupivacaine 0.25% Pres-Free 10 ML VIAL (12:15)
[2019-07-11] MEDS: Lidocaine 1% Multi-Dose 50 ML VIAL (13:49)
== END 2019-07-11 15:58 | disposition home or self-care (01) ==
LOC: SUR 08:47
PROVIDERS: PCP Internal Medicine; Visit Provider Surgery
PROC: (CPT 49520; principal; 2019-07-11 11:00)
PROC: (CPT 49520; 2019-07-11 11:00)
DX: K40.21 Bilateral inguinal hernia, without obstruction or gangrene, recurrent (principal); K42.9 Umbilical hernia without obstruction or gangrene; G89.18 Other acute postprocedural pain; G47.33 Obstructive sleep apnea (adult) (pediatric); F17.210 Nicotine dependence, cigarettes, uncomplicated
CPT/HCPCS: 49520; 49585; 76942; C1781; J0690; J1100; J1885; J2250; J2405

== ENCOUNTER 2019-07-17 14:14 | Outpatient (CLI) | payer BC, SELFPAY ==
--- NOTE | 2019-07-17 14:13 | DI.RAD_ITS ---
EXAM: XR ELBOW RT COMPLETE INDICATION: HISTORY OF INJURY. COMPARISON: No exams were available for comparison TECHNIQUE: 2D digital imaging was performed. FINDINGS: No fracture or joint effusion seen. There is mild spurring at the triceps insertion and coronoid pr ocess. No tendon or joint space calcifications are seen. IMPRESSION: Minimal degenerative changes. No acute abnormality.
== END 2019-07-17 14:34 ==
PROVIDERS: PCP Internal Medicine; Visit Provider Student in an Organized Health Care Education/Training Program
DX: M25.521 Pain in right elbow (principal); M19.021 Primary osteoarthritis, right elbow
CPT/HCPCS: 73080

== ENCOUNTER 2019-07-23 01:50 | Outpatient (CLI) | payer BC, SELFPAY ==
--- NOTE | 2019-07-23 14:52 | DI.CT_ITS ---
EXAM: CT UPPER EXTREMITY RT WO CLINICAL HISTORY: Painful bone spur posterior olecranon, elbow pain, M25.529 TECHNIQUE: The exam was performed according to the usual protocol. COMPARISON: XR ELBOW RT COMPLETE from 07/17/2019 FINDINGS: The bones appear normally mineralized. There is a small spur at the insertion site of the triceps te ndon on the olecranon. There is no associated soft tissue mass or focal fluid collection in this reg ion. There is a tiny bony density adjacent to the coronoid process. It appears chronic. This may r epresent an old injury. No acute fracture or dislocation is appreciated. The soft tissues are gross ly unremarkable. IMPRESSION: Mild degenerative changes about the elbow. If there is concern for internal derangement or soft tiss ue abnormality, an MRI should be considered for further evaluation.
== END 2019-07-23 02:10 ==
PROVIDERS: PCP Internal Medicine; Visit Provider Student in an Organized Health Care Education/Training Program
DX: M25.522 Pain in left elbow (principal); M77.8 Other enthesopathies, not elsewhere classified; M19.022 Primary osteoarthritis, left elbow
CPT/HCPCS: 73200

== ENCOUNTER 2019-07-27 07:16 | Day surgery (SDC) | payer BC, SELFPAY ==
[2019-07-27 07:39] VITALS: BP 109/68; PULSE 61; RESP 16; TEMP 36.4; O2SAT 98
[2019-07-27] MEDS: Lactated Ringers 1,000 ML 100 ML IV (08:47)
--- NOTE | 2019-07-27 10:16 | PDOC.DSDIS_ITS ---
Discharge Plan Disposition Patient Disposition: HOME Condition: Stable Discharge Details Reason For Visit: FOREIGN BODY REMOVAL Attending Provider: Juanito Villanueva Primary Care Provider: Delonte Corral Home Meds and New Rx's Prescriptions: New oxycodone 5 mg tablet 5 mg PO Q4H PRN (Reason: pain, severe) Qty: 12 RF: 0 Continued carvedilol 3.125 mg tablet 6.25 mg PO BID RF: 0 Eliquis 5 MG tablet 5 mg PO BID 30 Days Qty: 60 RF: 4 sertraline 50 mg Tablet 50 mg PO DAILY RF: 0 lansoprazole [Prevacid SoluTab] 30 MG tablet,disintegrat, delay rel 60 mg PO DAILY RF: 0 isosorbide mononitrate 120 MG tablet extended release 24 hr 120 mg PO DAILY RF: 0 Rosuvastatin Calcium 40 MG tablet 40 mg PO DAILY RF: 0 clopidogrel [Plavix] 75 mg Tablet 75 mg PO DAILY RF: 0 amitriptyline 25 mg Tablet 25 mg PO HS PRNRF: 0 bupropion HCl 150 mg Tablet Extended Release 24 Hr 300 mg PO DAILY RF: 0 amlodipine 10 mg tablet See Rx Instructions .ROUTE .COMPLEX RF: 0 oxycodone 5 mg tablet 5 mg PO Q6H PRN (Reason: pain) Qty: 14 RF: 0 Discharge Instructions Additional Instructions: Surgery: Right elbow excision of olecranon bursa including loose bodies and removal of olecranon bone spur Activity: Weightbearing as tolerated. Return to full activity gradually over the next few weeks. Prescriptions: Resume home blood thinners to prevent a blood clot Oxycodone 5 mg take 1-2 every 4-6 hours as needed for severe pain You may use [id number] Tylenol (acetaminophen) or Motrin (ibuprofen) as needed for mild or moderate pain. These pain medications may be taken all at once or in different combinations as needed. Also, recommend Colace (docusate) as a stool softener as surgery and pain medicine cause constipation. Dressings: Leave dressing in place for 3 days. Then may remove and cover incision with Band-Aids. May shower after 5 days if incision is clean, dry and intact. Follow-up: 10-[address] Villanueva Please call the office during business hours with any questions or concerns. Let us know right away if you develop any redness, drainage, fevers, chest pain, or trouble breathing. Do not drink alcohol or drive for at least 24 hours after anesthesia. Referrals: Juanito Villanueva MD [ [facility] STAFF PHYSICIAN] - Discharge Orders Discharge Orders: Discharge Order (Routine); Ordered 07/27/19 Ordered By: Juanito Villanueva DS: Diagnosis Discharge Diagnosis (1) Superficial foreign body of right elbow: Status: Acute (2) Olecranon bursitis of right elbow: Status: Acute (3) Olecranon bone spur: Status: Acute
[2019-07-27] MEDS: ceFAZolin 2 GM/50 ML BAG IVPB (10:25)
[2019-07-27 11:47] VITALS: BP 137/79; PULSE 58; RESP 15; TEMP 36.3; O2SAT 96
[2019-07-27 11:52] VITALS: BP 140/89; PULSE 56; RESP 11; TEMP 36.4; O2SAT 95
[2019-07-27 11:57] VITALS: BP 114/80; PULSE 57; RESP 13; TEMP 36.4; O2SAT 95
--- NOTE | 2019-07-27 11:59 | W.PM.OP ---
Date of service: 07/27/19 Time of Service: 12:00 Operative Note Operative Note DATE OF PROCEDURE: 07/27/19 PRE-OP DIAGNOSIS: 1. Loose or foreign body right posterior elbow POST-OP DIAGNOSIS: other (1. Loose bodies right olecranon bursa 2. Olecranon bursitis 3. Olecranon bone spur) PROCEDURE: 1. Excision of right olecranon bursa 2. Removal of right olecranon bursa loose bodies 3. Removal of right olecranon bone spur SURGEON: Juanito Villanueva D[employer] BIKE MECHANIC: Jeremy Corado ANESTHESIA: GETA and local ESTIMATED BLOOD LOSS: 10 COMPLICATIONS: None Patient was transported to: PACU Patient's condition: stable Implants: None Indications: Please see complete medical record for details. Findings: Right olecranon bursitis with numerous loose bodies. Bone spur posterior olecranon. Procedure Description: The patient was taken to the operating room and transferred to the operating room table. Anesthesia was induced. All bony prominences were well-padded. Preoperative antibiotics were administered. The right elbow was prepped and draped in the usual sterile fashion. The correct patient, procedure, and side of the procedure were all verified prior to incision. 10 cc of 0.25% bupivacaine with epinephrine were infiltrated proximal to the planned incision in a field block fashion so as not to disturb visualization throughout the case. A posterior longitudinal incision was made slightly radial of the tip of the olecranon. The incision was centered over the approximate area of maximal tenderness in the area the patient and I marked in the preoperative holding area to be the spot of his loose or foreign body. The olecranon bursa was encountered. There were numerous soft and somewhat firm calcific loose bodies. These were swept again again out of the olecranon bursa until it was completely clean. The bursa was irrigated thoroughly. We checked again and there were no more loose bodies. The decision was made to excise the olecranon bursa to prevent recurrence. This was done using Bovie cautery as well as a rondure to roughen up the edges. The wound was once again irrigated. Careful palpation about the skin edges, superficial areas about the incision, and deep tissues in all directions and all aspects of the wound revealed no more loose or foreign bodies. However, there was concern for a small olecranon symptomatic bone spur. This was smoothed using rondure. The wound was once again irrigated and there is no palpable or detectable remaining loose or foreign bodies. 500 mg of vancomycin powder were digitally distributed about the wound to create adhesion between the tissue layers and prevent bursa recurrence. 10 cc of 0.25% bupivacaine with epinephrine were infiltrated about the incision for postoperative analgesia. Deep tissue was closed using 2-0 Monocryl in a buried interrupted fashion. Skin was closed using 4-0 Monocryl in a buried subcuticular running fashion. Steri-Strips were applied across the incision and it was covered with 4 x 4 gauze, ABD, and wrapped in sterile Webril. An Carlitos wrap was applied about the elbow. The patient awoke from anesthesia without complication was taken to recovery room in stable condition.
[2019-07-27 13:00] VITALS: BP 124/76; PULSE 65; RESP 16; TEMP 36.1; O2SAT 98
== END 2019-07-27 13:05 | disposition home or self-care (01) ==
PROVIDERS: PCP Internal Medicine; Visit Provider Student in an Organized Health Care Education/Training Program
PROC: (CPT 24101; principal; 2019-07-27 09:00)
DX: M24.021 Loose body in right elbow (principal); M70.21 Olecranon bursitis, right elbow; M77.8 Other enthesopathies, not elsewhere classified; M25.721 Osteophyte, right elbow; Z79.01 Long term (current) use of anticoagulants
CPT/HCPCS: 24101; 24105; 11044; J0690; J2250; J3010

== ENCOUNTER 2019-09-27 06:15 | Day surgery (SDC) | payer BC, SELFPAY ==
[2019-09-27] VITALS (7 sets, daily range): BP systolic 108–135; BP diastolic 63–84; PULSE 58–68; RESP 12–16; TEMP 36–36.5; O2SAT 92–97
--- NOTE | 2019-09-27 06:53 | W.PM.HP.N ---
Date of service: 09/27/19 Time of Service: 06:53 Assessment and Plan Assessment and plan (1) Spermatocele: Status: Acute Assessment and plan: We will proceed with bilateral spermatocele ectomy. As part of our dissection, we will divert any hydrocele sac identified on either side. History of Present Illness History of Present Illness Chief Complaint: Spermatocele Narrative: This is a 53-year-old gentleman who is been followed for renal cell carcinoma the left kidney. He has had multiple partial nephrectomies. He is bilateral scrotal discomfort. He was found to have inguinal hernias which have been repaired. He has persistent bilateral scrotal discomfort which seems to be related to his documented spermatoceles. He presents now for bilateral spermatocelectomy. He has had no recent scrotal surgery. Review of Systems Narrative: No fevers or chills No vision change or dysphasia No diabetes or thyroid dysfunction Recent URI. Still has cough but no hemoptysis Hx CAD. No recent angina No nausea, vomiting, hepatitis, ulcers, jaundice, diarrhea or constipation No seizures or peripheral neuropathy. Hx stroke No bleeding disorders or anemia No gout PFSH Social History Smoking/Tobacco Use Status: Current every day Tobacco Type: cigarettes Alcohol Intake: never Drug use: Never Substance use type: does not use Current gender identity: male Do you feel safe at home: Yes Do you feel safe in your relationship?: Yes Meds Home Medications and Allergies Home Medications Medication Instructions Recorded Confirmed Type lansoprazole [Prevacid SoluTab] 60 mg PO DAILY 06/18/13 09/27/19 History isosorbide mononitrate 120 mg PO DAILY 10/16/15 09/27/19 History Eliquis 5 mg PO BID 30 Days #60 tab 02/24/18 09/27/19 Rx Rosuvastatin Calcium 40 mg PO DAILY 05/09/18 09/27/19 History clopidogrel [Plavix] 75 mg PO DAILY 07/24/18 09/27/19 History amitriptyline 25 mg PO HS PRN 09/07/18 09/27/19 History bupropion HCl 300 mg PO DAILY 04/18/19 09/27/19 History carvedilol 3.125 mg tablet 6.25 mg PO BID tab 06/14/19 09/27/19 History amlodipine 10 mg tablet See Rx Instructions .ROUTE .COMPLEX 06/29/19 09/27/19 History sertraline 50 mg PO DAILY 07/06/19 09/27/19 History oxycodone 5 mg PO Q6H PRN #14 tab 07/11/19 09/27/19 Rx oxycodone 5 mg PO Q4H PRN #12 tab 07/27/19 09/27/19 Rx Allergies Allergy/AdvReac Type Severity Reaction Status Date / Time atorvastatin calcium AdvReac Intermediate liver Verified 09/27/19 06:21 [From Lipitor] problems niacin AdvReac Mild flushing Verified 09/27/19 06:21 adhesive from monitor tabs Allergy Intermediate jones Uncoded 09/27/19 06:21 Exam Const General: cooperative and comfortable Neck Neck: supple Resp Effort & Inspection: normal respiratory effort Auscultation: clear to auscultation bilaterally Cardio Rate: regular rate Rhythm: regular rhythm GI Palpation: soft and no masses Testes: epididymal mass and epididymal tenderness Neuro General: alert and oriented x3 Results Last Vital Signs Temp 36.5 C 09/27/19 06:24 Pulse 65 09/27/19 06:24 Resp 16 09/27/19 06:24 BP 135/84 09/27/19 06:24 Pulse Ox 95 09/27/19 06:24
[2019-09-27] MEDS: Lactated Ringers 1,000 ML 80 ML IV (07:09)
[2019-09-27] MEDS: ceFAZolin 1 GM/50 ML BAG IVPB (07:35)
[2019-09-27] MEDS: Bupivacaine 0.25% Pres-Free 30 ML VIAL (08:09)
--- NOTE | 2019-09-27 08:34 | W.PM.DSUDISC ---
Discharge Plan Disposition Patient Disposition: HOME Condition: Stable Discharge Details Attending Provider: Niko Christensen Primary Care Provider: Delonte Corral Home Meds and New Rx's Prescriptions: New oxycodone 5 mg tablet 5 mg PO Q6H PRN (Reason: pain) Qty: 20 RF: 0 No Action carvedilol 3.125 mg tablet 6.25 mg PO BID RF: 0 Eliquis 5 MG tablet 5 mg PO BID 30 Days Qty: 60 RF: 4 sertraline 50 mg Tablet 50 mg PO DAILY RF: 0 lansoprazole [Prevacid SoluTab] 30 MG tablet,disintegrat, delay rel 60 mg PO DAILY RF: 0 isosorbide mononitrate 120 MG tablet extended release 24 hr 120 mg PO DAILY RF: 0 oxycodone 5 mg tablet 5 mg PO Q4H PRN (Reason: pain, severe) Qty: 12 RF: 0 Rosuvastatin Calcium 40 MG tablet 40 mg PO DAILY RF: 0 clopidogrel [Plavix] 75 mg Tablet 75 mg PO DAILY RF: 0 amitriptyline 25 mg Tablet 25 mg PO HS PRNRF: 0 bupropion HCl 150 mg Tablet Extended Release 24 Hr 300 mg PO DAILY RF: 0 amlodipine 10 mg tablet See Rx Instructions .ROUTE .COMPLEX RF: 0 oxycodone 5 mg tablet 5 mg PO Q6H PRN (Reason: pain) Qty: 14 RF: 0 Discharge Instructions Additional Instructions: OK to shower and remove dressing 09/28/19 ice pack to scrotum (bag of frozen peas works well) F/U appt with me 1 to 2 weeks for wound check OK to restart anticoagulants in 48 hours script for oxycodone sent to pharmacy Activity:: no lifting over 10 pounds for 1 week Remove Dressings/Wound Care:: 24 hours Shower/Bathe:: 24 hours Diet:: As Tolerated Discharge Orders Discharge Orders: Discharge Order (Routine); Ordered 09/27/19 Ordered By: Niko Christensen DS: Diagnosis Discharge Diagnosis (1) Spermatocele: Status: Acute
--- NOTE | 2019-09-27 09:20 | ROE_ITS ---
DATE: SEPTEMBER 27, 2019 Preoperative Diagnosis: Bilateral spermatocele and hydrocele. Postoperative Diagnosis: Right spermatocele, bilateral hydrocele. Operation: Anesthesia: General Surgeon: Niko Christensen M.D. Complications: None Specimen: None Estimated Blood Loss: Minimal History: This is a 53 year-old gentleman who has a history of bilateral scrotal discomfort. He was evaluated with scrotal ultrasound. He was found to have a right-sided scrotal mass which was a fluid filled cyst consistent with a spermatocele A small spermatocele was identified on the left side. It is unclear whether either of these lesions is responsible for, or associated with, his pain. He presents for scrotal exploration and spermatocelectomy. Procedure: The patient was brought to the Operating Room on 09/27/19. After successful induction of general anesthesia, he was placed in the supine position. His genitalia was prepped and draped sterilely. A midline scrotal incision was made along the scrotal raphe. The dartos muscle was divided and the left hemiscrotum was entered. The left testis was delivered through the incision. The fibrous attachments to the exterior of the hydrocele sac were then dissected free using sharp and blunt dissection. The hydrocele sac was opened and a small amount of fluid was evacuated. The epididymis was somewhat enlarged. The entire length of the epididymis was explored but no significant spermatocele was identified. A cord block was then performed using 1/4% Marcaine without Epinephrine. The hydrocele sac was everted behind the testis and reapproximated with a simple interrupted #3-0 chromic suture. The testis was then delivered back within the left hemiscrotum. The right hemiscrotum was then entered. There did appear to be more dense adhesions to the exterior of the hydrocele sac. The hydrocele sac was then opened and a moderate amount of fluid was evacuated. A 1 to 2 cm. cystic lesion was seen at the head of the epididymis. This was dissected free using sharp and blunt dissection. A small keratin raquel was evacuated from the hydrocele sac as well. None of the specimens were sent to pathology for permanent section. The hydrocele sac was everted behind the testis and reapproximated with a simple interrupted #3-0 chromic suture. A cord block was performed on the right side. The right testis was then delivered back within the hemiscrotum as well. The dartos muscle was reapproximated with a segment of running #3-0 chromic suture. The skin was then closed with simple interrupted #4-0 chromic. Dermabond was applied to the wound followed by a fluff dressing and scrotal support.
== END 2019-09-27 10:20 | disposition home or self-care (01) ==
PROVIDERS: PCP Internal Medicine; Visit Provider Urology
PROC: (CPT 55041; principal; 2019-09-27 07:30)
PROC: (CPT 54840; 2019-09-27 07:30)
DX: N43.41 Spermatocele of epididymis, single (principal); N43.3 Hydrocele, unspecified; Z85.53 Personal history of malignant neoplasm of renal pelvis; F17.210 Nicotine dependence, cigarettes, uncomplicated
CPT/HCPCS: 55041; 54840; NC; J0690; J1100; J1885; J2001; J2370; J2405; J2704

== ENCOUNTER 2019-10-01 15:37 | Emergency (ER) | payer BC, SELFPAY ==
[2019-10-01 15:42] VITALS: BP 116/87; PULSE 86; RESP 16; TEMP 36.1; O2SAT 99
[2019-10-01 15:59] LABS: Bilirubin Negative (Negative); Blood Negative (Negative); Clarity Clear (Clear); Glucose Negative (Negative); Ketones Negative (Negative); Leukocyte Esterase Negative (Negative); Nitrite Negative (Negative); Urobilinogen 0.2 EU/dL (Up TO 0.2)
[2019-10-01 16:27] LABS: Abs Immature Grans 0.02 k/cumm (0.0-0.09); Absolute Basophil Count 0.05 k/cumm (0.0-0.2); Absolute Eosinophil Count 0.25 k/cumm (0.0-0.7); Absolute Monocyte Count 0.86 k/cumm (0.11-0.7); Absolute Neutrophil Count 6.33 k/cumm (1.2-6.7); Basophils % 0.5; Eosinophils % 2.5; HCT 39.3 % (40.0-50.0); HGB 13.3 g/dL (13.5-17.5); Immature Grans % 0.2 %; Mean Corp. HGB Concentration 33.8 g/dL (32.0-36.0); Mean Corpuscular Hemoglobin 30.4 pg (27.0-33.0); Mean Corpuscular Volume 89.7 fL (80-95); Monocytes % 8.6; Neutrophils % 63.2; Platelet Count 324 x1000/uL (130-400); RBC 4.38 m/cumm (4.50-6.00); White Blood Cell Count 10.01 k/cumm (4.4-10.8)
--- NOTE | 2019-10-01 16:39 | ED.GENADUL_ITS ---
Discharge Plan Disposition Patient Disposition: HOME Condition: Good Discharge Details Chief Complaint: Abd Prob Clinical Impression: Abdominal hernia Primary Care Provider: Delonte Corral ED Provider: Fareed Guido Home Meds and New Rx's Prescriptions: No Action carvedilol 3.125 mg tablet 6.25 mg PO BID RF: 0 Eliquis 5 MG tablet 5 mg PO BID 30 Days Qty: 60 RF: 4 sertraline 50 mg Tablet 50 mg PO DAILY RF: 0 lansoprazole [Prevacid SoluTab] 30 MG tablet,disintegrat, delay rel 60 mg PO DAILY RF: 0 isosorbide mononitrate 120 MG tablet extended release 24 hr 120 mg PO DAILY RF: 0 oxycodone 5 mg tablet 5 mg PO Q4H PRN (Reason: pain, severe) Qty: 12 RF: 0 oxycodone 5 mg tablet 5 mg PO Q6H PRN (Reason: pain) Qty: 20 RF: 0 Rosuvastatin Calcium 40 MG tablet 40 mg PO DAILY RF: 0 clopidogrel [Plavix] 75 mg Tablet 75 mg PO DAILY RF: 0 amitriptyline 25 mg Tablet 25 mg PO HS PRNRF: 0 bupropion HCl 150 mg Tablet Extended Release 24 Hr 300 mg PO DAILY RF: 0 amlodipine 10 mg tablet See Rx Instructions .ROUTE .COMPLEX RF: 0 oxycodone 5 mg tablet 5 mg PO Q6H PRN (Reason: pain) Qty: 14 RF: 0 Discharge Instructions Additional Instructions: You have a hernia in your left lateral abdominal wall. This is from the old surgical site. As per your request we will place a referral for Dr. Marinelli. Please contact their office for close follow-up as well. Please take Tylenol or Motrin as needed for pain. If you notice any worsening of your symptoms, or any new symptoms such as vomiting, diarrhea, fever, chills, shortness of breath, chest pain, numbness, weakness, or fainting , please return immediately to the emergency department for reevaluation. Please follow up with your primary care provider as soon as possible for reassessment and reevaluation. As always, it was a pleasure participating in your medical care today. Referrals: Brianne Marinelli MD [ [facility] STAFF PHYSICIAN] - Delonte Corral MD [Primary Care Provider] - Medical Decision Making 54-year-old male with history of coronary artery disease status post multiple stents, paroxysmal atrial fibrillation, left MCA stroke, GERD, renal mass status post left partial nephrectomy, ongoing tobacco use presents with chief complaint of chest pain. He presents with left-sided pain over his previous nephrectomy scar. Is been present for 4 days and started slightly after his recent testicular surgeries. He denies any nausea vomiting or diarrhea. Pain is made worse with palpation. No fever chills or urinary complaints. Exam demonstrates mild bulge over the nephrectomy scar site, notable reproducible tenderness. The remainder of his abdominal exam is unremarkable with no evidence of significant acute surgical abdomen. I did discuss risks and benefits of delaying for ultrasound versus getting CT scan at this time, and at this point the patient would like further evaluation with CT imaging. He states that he wants nothing for the pain currently although he states he is in moderate pain. We will get a CT scan, evaluate for urinary component, and reassess. [address] scan has returned, there is evidence of a small left lateral dominant wall defect with herniation of the omental fat but no evidence of fat stranding, incarceration or strangulation. Lactate is normal, no white count, urinalysis unremarkable. Labs are notably reassuring and otherwise unremarkable. Patient states pain is stable at this time, and would like to follow-up with Dr. Marinelli specifically. We will place a referral. He is still eating and drinking well. We discussed red flags which to return. I have extensively reviewed the treatment plan and discharge instructions with the patient. I have addressed all patient concerns at this time. The patient was made aware of what symptoms to monitor for that would warrant a return to the emergency department. Discussed the plan with the patient, they demonstrate verbal understanding and agreement with our assessment and plan at this time. FINDINGS: Lungs: Calcified granulomas of the lung bases unchanged from prior study. Motion artifact degrades image quality. Stable a 0.4 cm nodules in the periphery of the right middle lobe. Dependent atelectasis. Heart: Metallic density in the posterior aspect of the heart may represent coronary artery stents. Liver: Hepatic steatosis. Gallbladder and bile ducts: Normal. No calcified stones. No ductal dilation. Pancreas: Normal. No ductal dilation. Spleen: Normal. No splenomegaly. Adrenals: Normal. No mass. Kidneys and ureters: Stable postsurgical changes of the left kidney. Stomach and bowel: Large solid stool load. Diverticulosis. Gastric wall thickening similar to the prior study. Appendix: No evidence of appendicitis. Intraperitoneal space: Unremarkable. No free air. No significant fluid collection. Vasculature: Atherosclerotic disease. Lymph nodes: Unremarkable. No enlarged lymph nodes. Bladder: Stable bladder wall thickening. Reproductive: Stable prostate calcifications. Bones/joints: Multilevel degenerative scoliotic changes of the spine. Stable sclerotic changes of the inferior SI joints. Soft tissues: Stable defect in the left posterior lateral abdominal wall musculature with herniation of omental fat. Fat distension of the inguinal canals with infiltration of the surrounding subcutaneous fat. IMPRESSION: 1. Left posterior lateral dominant wall muscle defect with herniation of omental fat. 2. Diverticulosis without diverticulitis. Constipation. 3. Sequela of prior granulomatous disease. Stable 0.4 mm nodules right middle lobe. Thank you for allowing us to participate in the care of your patient. Dictated and Authenticated by: Esther Marshall MD 10/01/2019 5:56 PM Eastern Time ([place] & [place]) HPI General Date/Time Provider Initiated Documentation: 10/01/19 15:51 . HPI Narrative: This is a 54-year-old male with history of coronary artery disease status post multiple stents, paroxysmal atrial fibrillation, left MCA stroke, GERD, renal mass status post left partial nephrectomy, ongoing tobacco use presents with chief complaint of left-sided flank pain. The patient states that for the last 4 days shortly after he had testicular surgery he developed left- sided flank pain. Pain is only located in the scar from his previous left nephrectomy. There is no radiation. It is notably worsening. It is not worse with Valsalva, but is worsened with palpation. He denies nausea vomiting or diarrhea. He denies urinary complaints. He denies any hematuria. He did see his primary care provider Dr. Corral who scheduled an ultrasound however he presents to the ER today stating that he cannot take the pain and cannot wait for the ultrasound tomorrow. He has not taken anything for the pain today. He has no other complaints at this time. No other modifying factors. Related Data Home Medications Medication Instructions Recorded Confirmed lansoprazole [Prevacid SoluTab] 60 mg PO DAILY 06/18/13 10/01/19 isosorbide mononitrate 120 mg PO DAILY 10/16/15 10/01/19 Eliquis 5 mg PO BID 30 Days #60 tab 02/24/18 10/01/19 Rosuvastatin Calcium 40 mg PO DAILY 05/09/18 10/01/19 clopidogrel [Plavix] 75 mg PO DAILY 07/24/18 10/01/19 amitriptyline 25 mg PO HS PRN 09/07/18 10/01/19 bupropion HCl 300 mg PO DAILY 04/18/19 10/01/19 carvedilol 3.125 mg tablet 6.25 mg PO BID tab 06/14/19 10/01/19 amlodipine 10 mg tablet See Rx Instructions .ROUTE .COMPLEX 06/29/19 10/01/19 sertraline 50 mg PO DAILY 07/06/19 10/01/19 oxycodone 5 mg PO Q6H PRN #14 tab 07/11/19 10/01/19 oxycodone 5 mg PO Q4H PRN #12 tab 07/27/19 10/01/19 oxycodone 5 mg PO Q6H PRN #20 tab 09/27/19 10/01/19 Previous Rx's Medication Instructions Recorded Eliquis 5 mg PO BID 30 Days #60 tab 02/24/18 oxycodone 5 mg PO Q6H PRN #14 tab 07/11/19 oxycodone 5 mg PO Q4H PRN #12 tab 07/27/19 oxycodone 5 mg PO Q6H PRN #20 tab 09/27/19 Allergies Allergy/AdvReac Type Severity Reaction Status Date / Time atorvastatin calcium AdvReac Intermediate liver Verified 10/01/19 15:44 [From Lipitor] problems niacin AdvReac Mild flushing Verified 10/01/19 15:44 adhesive from monitor tabs Allergy Intermediate jones Uncoded 10/01/19 15:44 General Stated Complaint: Abd Prob MARQUIS: 3 Review of Systems All systems reviewed & are unremarkable except as noted in HPI and below PFSH Social History Smoking/Tobacco Use Status: Current every day Tobacco Type: cigarettes Alcohol Intake: never Drug use: Never Substance use type: does not use Current gender identity: male Do you feel safe at home: Yes Do you feel safe in your relationship?: Yes Exam Narrative Exam Narrative: 1.Const: Well-nourished, Well-developed, appearing stated age 2.Eyes: PERRL, no conjunctival injection, and symmetrical lids. 3.ENT: Atraumatic external nose and ears. Moist MM. Neck: Symmetric, trachea midline, No thyromegaly. 4.CVS: +S1/S2, No murmurs or gallops. Peripheral pulses 2+ and equal in all extremities. Brisk capillary refill in all extremities. 5.RESP: Unlabored respiratory effort. Clear to auscultation bilaterally. No wheezes rales or rhonchi 6.GI: Soft, Nontender/Nondistended, No hepatosplenomegaly. No guarding or rebound. Patient's left flank demonstrates previous left nephrectomy scar, mild bulging is noted in this area but appears to be easily reducible. Patient notes notable subjective pain on palpation of this area. No abdominal pain or tenderness otherwise. No new testicular or penile pain. No redness, firmness, or evidence of cellulitis or infection. 7.MSK: Normocephalic/Atraumatic, Extremities w/o deformity or ttp No cyanosis or clubbing, Normal movement of all extremities 8.Skin: Warm, Dry. No rashes or lesions. 9.Neuro: ict account manager II-XII grossly intact. Sensation grossly intact, no focal neurologic deficits. 10.Psych: (AAO) x3. Appropriate mood and affect Course Vital Signs Vital signs: Vital Signs Temperature 36.1 C L 10/01/19 15:42 Pulse 86 10/01/19 15:42 Respiratory Rate 16 10/01/19 15:42 Blood Pressure 116/87 10/01/19 15:42 Pulse Oximetry 99 10/01/19 15:42 Temperature 36.1 C L 10/01/19 15:42 Temperature Source Skin 10/01/19 15:42 Pulse 86 10/01/19 15:42 Respiratory Rate 16 10/01/19 15:42 Respiratory Effort Non-Labored 10/01/19 15:42 Blood Pressure 116/87 10/01/19 15:42 Blood Pressure Position Standing 10/01/19 15:42 Pulse Oximetry 99 10/01/19 15:42 Oxygen Delivery Method Room Air 10/01/19 15:42 Oxygen Flow Rate 0 10/01/19 15:42 Pain Level 10 10/01/19 15:42 Lab/Test Results Lab/Test Results: Laboratory Tests Range/Units 10/01/19 10/01/19 10/01/19 15:50 16:20 16:20 WBC (4.4-10.8) k/cumm 10.01 RBC (4.50-6.00) m/cumm 4.38 L Hgb (13.5-17.5) g/dL 13.3 L Hct (40.0-50.0) % 39.3 L MCV (80-95) fL 89.7 MCH (27.0-33.0) pg 30.4 MCHC (32.0-36.0) g/dL 33.8 RDW (11.8-14.1) % 14.0 Plt Count (130-400) x1000/uL 324 MPV (8.0-11.0) fL 9.0 Immature Gran % % 0.2 Neutrophils % 63.2 Lymphocytes % 25.0 Monocytes % 8.6 Eosinophils % 2.5 Basophils % 0.5 Absolute Neutrophils (1.2-6.7) k/cumm 6.33 Absolute Lymphocytes (1.2-3.4) k/cumm 2.50 Absolute Monocytes (0.11-0.7) k/cumm 0.86 H Absolute Eosinophils (0.0-0.7) k/cumm 0.25 Absolute Basophils (0.0-0.2) k/cumm 0.05 Lactate (0.6-1.4) mmol/L 1.0 Urine Color (Yellow) Yellow Urine Clarity (Clear) Clear Urine pH (5-8) 7.0 Ur Specific [place] (1.005-1.025) 1.020 Urine Protein (Negative) mg/dL Negative Urine Ketones (Negative) mg/dL Negative Urine Blood (Negative) Negative Urine Nitrite (Negative) Negative Urine Bilirubin (Negative) Negative Urine Urobilinogen (Up TO 0.2) EU/dL 0.2 Ur Leukocyte Esterase (Negative) Negative Urine Glucose (Negative) mg/dL Negative
[2019-10-01 16:49] LABS: ALT 21 U/L (16-63); AST 8 U/L (15-37); Albumin 3.4 g/dL (3.4-5.0); Alkaline Phosphatase 82 U/L (46-116); Anion Gap 9.8 mmol/L (3-11); BUN 14 mg/dL (7-18); Bilirubin, Total 0.3 mg/dL (0.2-1.0); CO2 28.2 mmol/L (21.0-32.0); Chloride 103 mmol/L (98-107); Glucose 117 mg/dL (74-106); Potassium 3.8 mmol/L (3.5-5.1); Sodium 141 mmol/L (136-145); Total Protein 7.3 g/dL (6.4-8.2)
--- NOTE | 2019-10-01 17:11 | DI.CT_ITS ---
EXAM: CT ABDOMEN PELVIS WO CLINICAL HISTORY: left flank pain at post op site, r/o hernia/incarc TECHNIQUE: Non contrast COMPARISON: CT ABDOMEN PELVIS W from 06/30/2019 FINDINGS: There is a defect in the left upper lateral abdominal wall, beneath the level of the ribs. The zahira ent is status post resection of the superior portion of left kidney. There is no change in the appea christine of the abdominal wall defect. There is no evidence of bowel incarceration. The left kidney sh ows no evidence of hydronephrosis or calcifications. Postsurgical defect is again noted. Calcificat ion is seen at the left lung base. The liver, gallbladder, spleen, pancreas, adrenals and right kidn ey are unremarkable. There is increased stool in the colon. There is diverticula of the descending and sigmoid but no evidence of diverticulitis. No small bowel dilatation, free air or free fluid is seen. Degenerative changes and scoliosis are noted in the spine. IMPRESSION: No change in postsurgical defect at the superior aspect of the left kidney as well as left lateral ab dominal wall.
--- NOTE | 2019-10-01 17:56 | DI.VRAD_ITS ---
PROCEDURE INFORMATION: Exam: CT Abdomen And Pelvis Without Contrast Exam date and time: 10/01/2019 5:10 PM Age: 54 years old Clinical indication: Abdominal pain; Prior surgery; Patient HX: Left flank pain at post op site; Additional info: R/O hernia/incarc TECHNIQUE: Imaging protocol: Computed tomography of the abdomen and pelvis without contrast. COMPARISON: CT ABDOMEN PELVIS W 02/02/2019 13:50 FINDINGS: Lungs: Calcified granulomas of the lung bases unchanged from prior study. Motion artifact degrades image quality. Stable a 0.4 cm nodules in the periphery of the right middle lobe. Dependent atelectasis. Heart: Metallic density in the posterior aspect of the heart may represent coronary artery stents. Liver: Hepatic steatosis. Gallbladder and bile ducts: Normal. No calcified stones. No ductal dilation. Pancreas: Normal. No ductal dilation. Spleen: Normal. No splenomegaly. Adrenals: Normal. No mass. Kidneys and ureters: Stable postsurgical changes of the left kidney. Stomach and bowel: Large solid stool load. Diverticulosis. Gastric wall thickening similar to the prior study. Appendix: No evidence of appendicitis. Intraperitoneal space: Unremarkable. No free air. No significant fluid collection. Vasculature: Atherosclerotic disease. Lymph nodes: Unremarkable. No enlarged lymph nodes. Bladder: Stable bladder wall thickening. Reproductive: Stable prostate calcifications. Bones/joints: Multilevel degenerative scoliotic changes of the spine. Stable sclerotic changes of the inferior SI joints. Soft tissues: Stable defect in the left posterior lateral abdominal wall musculature with herniation of omental fat. Fat distension of the inguinal canals with infiltration of the surrounding subcutaneous fat. IMPRESSION: 1. Left posterior lateral dominant wall muscle defect with herniation of omental fat. 2. Diverticulosis without diverticulitis. Constipation. 3. Sequela of prior granulomatous disease. Stable 0.4 mm nodules right middle lobe. Dictated and Authenticated by: Esther Marshall MD. Ordering:GRAZYNA Guerrier MD
[2019-10-01 18:15] VITALS: BP 128/88; PULSE 62; RESP 16; TEMP 36.5; O2SAT 95
--- NOTE | 2019-10-02 07:15 | NUR.NOTE ---
Nursing Note: Referral [facility] for follow up. Darya Newby.
== END 2019-10-01 18:15 | disposition home or self-care (01) ==
PROVIDERS: Emergency Provider Student in an Organized Health Care Education/Training Program; PCP Internal Medicine
DX: K43.2 Incisional hernia without obstruction or gangrene (principal); Z90.5 Acquired absence of kidney; C64.2 Malignant neoplasm of left kidney, except renal pelvis
CPT/HCPCS: 36415; 80053; 99284; 74176; 81003; 83605; 85025

== ENCOUNTER 2019-10-02 11:53 | Emergency (ER) | payer BC, SELFPAY ==
[2019-10-02 11:56] VITALS: BP 130/73; PULSE 70; RESP 18; TEMP 36.7; O2SAT 100
--- NOTE | 2019-10-02 12:13 | ED.GENADUL_ITS ---
Discharge Plan Disposition Patient Disposition: HOME Discharge Details Chief Complaint: Abd Prob Clinical Impression: Abdominal pain Primary Care Provider: Delonte Corral ED Provider: Bebo Hernandez Home Meds and New Rx's Prescriptions: No Action carvedilol 3.125 mg tablet 6.25 mg PO BID RF: 0 Eliquis 5 MG tablet 5 mg PO BID 30 Days Qty: 60 RF: 4 sertraline 50 mg Tablet 50 mg PO DAILY RF: 0 lansoprazole [Prevacid SoluTab] 30 MG tablet,disintegrat, delay rel 60 mg PO DAILY RF: 0 isosorbide mononitrate 120 MG tablet extended release 24 hr 120 mg PO DAILY RF: 0 oxycodone 5 mg tablet 5 mg PO Q4H PRN (Reason: pain, severe) Qty: 12 RF: 0 oxycodone 5 mg tablet 5 mg PO Q6H PRN (Reason: pain) Qty: 20 RF: 0 Rosuvastatin Calcium 40 MG tablet 40 mg PO DAILY RF: 0 clopidogrel [Plavix] 75 mg Tablet 75 mg PO DAILY RF: 0 amitriptyline 25 mg Tablet 25 mg PO HS PRNRF: 0 bupropion HCl 150 mg Tablet Extended Release 24 Hr 300 mg PO DAILY RF: 0 amlodipine 10 mg tablet See Rx Instructions .ROUTE .COMPLEX RF: 0 oxycodone 5 mg tablet 5 mg PO Q6H PRN (Reason: pain) Qty: 14 RF: 0 Discharge Instructions Instructions: Abdominal Pain (ED) Additional Instructions: 1. Drink plenty of fluids. 2. Continue all medications as prescribed. 3. Acetaminophen 1000mg every 4 hours (up to 5 time a day) and/or ibuprofen 600mg every 6 hours as needed for fever or pain. 4. Follow-up at surgery clinic tomorrow to schedule Return to the Emergency Department (ED) if your condition worsens, does not improve as expected, or for ANY other concerns. Specifically, return if you have new or uncontrolled pain, worsening fever, difficulty breathing, vomiting, or are unable to drink fluids. Medical Decision Making 54-year-old man with multiple medical problems who returns for reevaluation of atypical left flank pain associate with a known incisional defect from previous surgery. Evaluation yesterday included a full set of normal labs as well as a nondiagnostic CT of the abdomen which confirmed a previously noted defect with no other evidence of acute changes. Mr. boucher had been discharged with plan for analgesia and outpatient surgery follow-up. He presents today because he is pain is subjectively worsened. However he is taken no analgesia since his discharge. Exam was remarkable for local tenderness and a tissue defect at the site of his previous surgery which is consistent what was described yesterday during his evaluation. Reviewed nondiagnostic CT and labs. Discussed conservative management Mr. boucher with a plan for surgical follow-up as scheduled. Mr. boucher was upset that no further testing was offered today. Discharged with a plan for analgesia and outpatient follow-up. Patient left prior to reviewing discharge instructions. Given usual and customary return instructions prior to discharge Medical Records Medical records reviewed: Yes I reviewed the patient's medical records. HPI 54-year-old gent with a past medical history which includes atrial fibrillation, chronic back pain, CAD, noncardiac chest pain, depression/anxiety, diverticular disease and a history of renal cancer and previous left-sided renal surgery. Presented here yesterday for atypical/worsening pain in his previous left renal incision site. Is evaluated that time included a nondiagnostic CT of the abdomen pelvis as well as normal labs. He was discharged with plan for outpatient analgesia and surgery follow-up. He is scheduled for surgical appointment tomorrow. He presents today concerned that his symptoms are w orsening and notes that he was told to return here for worsening discomfort. Of note, he has taken no analgesia since his discharge last night. He localizes pain to his incision site and describes it radiating towards his anterior abdomen. He has had no subjective fever/chills, generalized abdominal pain, change in bowel habits, or urinary symptoms. General Date/Time Provider Initiated Documentation: 10/02/19 11:58 . Related Data Home Medications Medication Instructions Recorded Confirmed lansoprazole [Prevacid SoluTab] 60 mg PO DAILY 06/18/13 10/02/19 isosorbide mononitrate 120 mg PO DAILY 10/16/15 10/02/19 Eliquis 5 mg PO BID 30 Days #60 tab 02/24/18 10/02/19 Rosuvastatin Calcium 40 mg PO DAILY 05/09/18 10/02/19 clopidogrel [Plavix] 75 mg PO DAILY 07/24/18 10/02/19 amitriptyline 25 mg PO HS PRN 09/07/18 10/02/19 bupropion HCl 300 mg PO DAILY 04/18/19 10/02/19 carvedilol 3.125 mg tablet 6.25 mg PO BID tab 06/14/19 10/02/19 amlodipine 10 mg tablet See Rx Instructions .ROUTE .COMPLEX 06/29/19 10/02/19 sertraline 50 mg PO DAILY 07/06/19 10/02/19 oxycodone 5 mg PO Q6H PRN #14 tab 07/11/19 10/02/19 oxycodone 5 mg PO Q4H PRN #12 tab 07/27/19 10/02/19 oxycodone 5 mg PO Q6H PRN #20 tab 09/27/19 10/02/19 Previous Rx's Medication Instructions Recorded Eliquis 5 mg PO BID 30 Days #60 tab 02/24/18 oxycodone 5 mg PO Q6H PRN #14 tab 07/11/19 oxycodone 5 mg PO Q4H PRN #12 tab 07/27/19 oxycodone 5 mg PO Q6H PRN #20 tab 09/27/19 Allergies Allergy/AdvReac Type Severity Reaction Status Date / Time atorvastatin calcium AdvReac Intermediate liver Verified 10/02/19 12:00 [From Lipitor] problems niacin AdvReac Mild flushing Verified 10/02/19 12:00 adhesive from monitor tabs Allergy Intermediate jones Uncoded 10/02/19 12:00 General Stated Complaint: Abd Prob MARQUIS: 3 Review of Systems All systems reviewed & are unremarkable except as noted in HPI and below PFSH Medical History Anemia (Chronic) Atrial fibrillation (Chronic) Back pain, chronic (Chronic) Chest pain (Chronic) Coronary artery disease (Chronic) Depression with anxiety (Chronic) Diverticulosis (Chronic) Duodenal ulcer (Chronic) Dysesthesia (Chronic) Dyslipidemia (Chronic) Dyspepsia (Chronic) Esophagitis (Chronic) Gastritis (Chronic) Hemiplegia (Chronic) History of kidney cancer (Chronic) Hx of adenomatous polyp of colon (Chronic) Inguinal hernia (Resolved) Ischemic stroke (Chronic) Lipoma of back (Chronic) Occipital headache (Chronic) Penile pain (Acute) Pulmonary nodules (Chronic) Recurrent bilateral inguinal hernia (Resolved) Sleep apnea (Chronic) Spermatocele (Acute) Tobacco use (Chronic) Tubular adenoma of colon (Inactive 08/03/17) Umbilical hernia (Resolved) Surgical History cardiac cath (Inactive) 2014, 9 stents over the years since 2002. Jul or Aug was last stent put in per pt. Colonoscopy - MAC (Inactive 08/03/17) EGD - MAC (Inactive 08/03/17) History of loop recorder (Acute) placed a couple months ago per pt 2019 under left chest. History of radiofrequency ablation procedure for cardiac arrhythmia (Acute) Hx of appendectomy (Chronic) Olecranon bone spur (Acute) s/p debridement on 07/27/2019 Partial Nephrectomy (Inactive) left side for renal cell cancer. Has yearly CT scan. 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 GENERAL: alert, active, no acute distress, well -hydrated, well-nourished HEENT: atraumatic/normocephalic, PERRLA, EOMI, conjunctiva clear, external ears/canals normal, nasal mucosa normal NECK: supple, full range of motion, no mass, normal lymphadenopathy, no thyromegaly CARDIOVASCULAR: RRR, no murmurs, nl pulses, no edema PULMONARY: nl effort, no audible wheezing or stridor, nl breath sounds with no focal deficit. no chest wall tenderness ABDOMEN: soft, non-distended, no mass, no organomegaly; local tenderness and mild tissue swelling in the distribution of previous surgical scar from the left flank towards the left lower abdomen. There is no generalized abdominal tenderness. The incision site is clean dry and intact. There is no erythema, induration, or fluctuance appreciated. EXTREMITY: normal muscle tone, all joints with FROM, no deformity or tenderness SKIN: no exanthem appreciated NEURO: gross motor exam normal, normal stance and gait PSYCH: alert and oriented, Course Vital Signs Vital signs: Vital Signs Temperature 98.1 F 10/02/19 11:56 Pulse 70 10/02/19 11:56 Respiratory Rate 18 10/02/19 11:56 Blood Pressure 130/73 10/02/19 11:56 Pulse Oximetry 100 10/02/19 11:56 Temperature 98.1 F 10/02/19 11:56 Temperature Source Temporal Artery Scan 10/02/19 11:56 Pulse 70 10/02/19 11:56 Respiratory Rate 18 10/02/19 11:56 Respiratory Effort Non-Labored 10/02/19 11:59 Blood Pressure 130/73 10/02/19 11:56 Blood Pressure Position Sitting 10/02/19 11:56 Pulse Oximetry 100 10/02/19 11:56 Oxygen Delivery Method Room Air 10/02/19 11:56 Oxygen Flow Rate 0 10/02/19 11:56 Pain Level 10 10/02/19 11:56
== END 2019-10-02 12:13 | disposition home or self-care (01) ==
PROVIDERS: Emergency Provider Emergency Medicine; PCP Internal Medicine
DX: K43.2 Incisional hernia without obstruction or gangrene (principal); R10.32 Left lower quadrant pain
CPT/HCPCS: 99282

== ENCOUNTER 2019-10-03 15:47 | Outpatient (CLI) | payer BC, SELFPAY ==
--- NOTE | 2019-10-03 14:04 | DI.US_ITS ---
EXAM: US HERNIA CLINICAL HISTORY: PAIN OF LEFT FLANK ABOVE OLD INCISION RE: HERNIA, R10.9 TECHNIQUE: Ultrasound performed using standard protocol. COMPARISON: CT ABDOMEN PELVIS WO from 10/01/2019 FINDINGS: The skin incision is noted. No hernia is identified. There is no fluid collection or significant ed devi. IMPRESSION: No visible hernia.
== END 2019-10-03 16:07 ==
PROVIDERS: PCP Internal Medicine; Visit Provider Surgery
DX: R10.32 Left lower quadrant pain (principal); Z98.890 Other specified postprocedural states
CPT/HCPCS: 76857

== ENCOUNTER 2019-11-01 11:57 | Inpatient (IN) | payer BC, SELFPAY ==
[2019-11-01] VITALS (14 sets, daily range): BP systolic 118–142; BP diastolic 74–84; PULSE 63–81; RESP 15–18; TEMP 36.1–37.4; O2SAT 93–98
[2019-11-01 12:27] LABS: Abs Immature Grans 0.03 k/cumm (0.0-0.09); Absolute Basophil Count 0.02 k/cumm (0.0-0.2); Absolute Eosinophil Count 0.18 k/cumm (0.0-0.7); Absolute Lymphocyte Count 2.38 k/cumm (1.2-3.4); Absolute Monocyte Count 0.93 k/cumm (0.11-0.7); Absolute Neutrophil Count 8.53 k/cumm (1.2-6.7); Basophils % 0.2; Eosinophils % 1.5; HCT 38.1 % (40.0-50.0); Immature Grans % 0.2 %; Lymphocytes % 19.7; Mean Corp. HGB Concentration 34.1 g/dL (32.0-36.0); Mean Corpuscular Hemoglobin 30.7 pg (27.0-33.0); Mean Corpuscular Volume 89.9 fL (80-95); Monocytes % 7.7; Neutrophils % 70.7; Platelet Count 252 x1000/uL (130-400); RBC 4.24 m/cumm (4.50-6.00); RBC Distribution Width 14.2 % (11.8-14.1); White Blood Cell Count 12.07 k/cumm (4.4-10.8)
[2019-11-01] MEDS: Aspirin 81 MG CHEW 324 MG CH (12:33)
--- NOTE | 2019-11-01 12:40 | DI.RAD_ITS ---
EXAM: XR CHEST 2V PA LATERAL CLINICAL HISTORY: chest pain TECHNIQUE: COMPARISON: XR CHEST 2V PA LATERAL from 06/30/2019 FINDINGS: The heart is not enlarged. There appear to be coronary artery stents. Mild prominence of pulmonary interstitial markings noted, nonspecific. No gross pulmonary edema. No pleural effusion. No focal consolidation. IMPRESSION: Slight pulmonary interstitial prominence common nonspecific. No evidence CHF or pulmonary consolidat ion.
--- NOTE | 2019-11-01 12:44 | ED.GENADUL_ITS ---
Discharge Plan Disposition Patient Disposition: [facility] INPATIENT Condition: Good Discharge Details Chief Complaint: Chest Pain Clinical Impression: Chest pain Admit Date/Time: 11/01/19 18:04 Admit Provider: Adams Ventura Attending Provider: Adams Ventura Primary Care Provider: Delonte Corral ED Provider: Fareed Guido Medical Decision Making This is a 54-year-old male with history of coronary artery disease status post multiple stents, paroxysmal atrial fibrillation, left MCA stroke, GERD, renal mass status post left partial nephrectomy, ongoing tobacco use who presents for evaluation of chest pain. Patient was actually just recently at [facility], and discharge for chest pain. Work-up at that time was unremarkable. His isosorbide nitrate was increased from 1 20-1 80, but no other changes. Today at 9:30 AM while sitting at Dr. Corral's office for regular appointment he developed some mild chest pain which she describes as feeling like someone punched him in the center of the chest. He denies any tearing or ripping s ensation, he states that it feels identical to his previous episodes, including previous episodes where he required cardiac evaluation. He denies any syncope, significant shortness of breath, fever chills, cough, nausea vomiting or diarrhea. He does admit to very mild headache, as well as some radiation to his neck. He has no other complaints at this time. No other modifying factors. He denies significant worsening of his symptoms with getting up or walking around. Physical exam is relatively unremarkable, vital signs stable, EKG shows no signs of STEMI. No significant acute changes. Bedside limited ultrasound shows very minimal trace pericardial effusion, however the distal left ventricle does appear slightly atypical in nature, almost concerning for very small atypical aneurysmal dilatation. No other abnormalities I can appreciate on limited ultrasound at this time. Because of this we will get a formal echo for further assessment, perform serial tropes and reassess. This time signs and symptoms appear inconsistent with dissection. He does take his blood thinners and also inconsistent with PE. 1:31 PM The patient's chest pain is notably relieved with nitroglycerin ointment. Initial laboratory work-up has returned normal, hemoglobin stable, electrolytes normal, renal function normal, initial troponin proBNP unremarkable. I did speak with Dr. Saldaña, the on-call survey technician here, he does agree with the echo, we will get this while we wait for the repeat troponin. I did review the note from [facility] for the patient's visit there in the ED, cardiology did rec ommend increasing the nitro, but there seem to be varying opinions as to whether admission serial troponins were indicated. The ER doctor did recommend serial troponins, however the patient did decide to leave against his advice prior to this. We will continue to monitor closely. 4 PM Formal echo shows no evidence of significant aneurysm, case discussed with Dr. myers. He notes no significant abnormality on the echo. We will continue to monitor for serial troponins. 6 PM Serial troponins are unremarkable, serial EKGs are unchanged. The patient remains pain-free at this time. Lidoderm patch is still in place. We did get him up and ambulated him around the ED and he did not have any exertional chest pain then either. He is notably improved. I did contact [facility] and discus sed the case with Eileen nurse practitioner/PA from [facility]. Currently they have no beds available there. Eileen recommended that the patient would benefit from cardiac catheterization. They recommend holding the patient here tonight, continuing serial troponins, holding the Eliquis and bridging with heparin. Recommend reestablishing connection tomorrow morning, and potentially transferring down for catheterization. If unable to transfer then they may potentially do a nuclear stress test to evaluate for potential focal location for catheter evaluation. They do recommend continuing the Plavix at this time. I spoke with the hospitalist Dr. Ventura, he agrees with the assessment and plan. Patient will be admitted to [facility] with telemetry. I have extensively reviewed the treatment plan with the patient. I have addressed all patient concerns at this time. I have also discussed the plan with the admitting physician and they agree with the current assessment and plan and have agreed to assume responsibility for the patient. All parties demonstrate verbal understanding and agreement with our assessment and plan at this time. EKG 12: 05 Rate 64, intervals normal, sinus rhythm, no significant ST elevations or depressions. There is a single T wave inversion in V1. No evidence of STEMI. EKG 15: 06 Rate 64, sinus rhythm, intervals normal, no significant ST elevations or depressions, single T wave inversion in V1 small T wave inversion potentially in lead III. No other abnormalities. No significant changes. Conclusion Left Ventricle : The left ventricle is normal size. There is no evidence of an LV aneurysm though contrast was not utilized. There is normal left ventricular wall thickness. The left ventricular systolic function is normal. The left ventricular ejection fraction is within the normal range. There is normal LV segmental wall motion. LVEF is estimated to be 60-65%. Compared to echocardiogram dated 10/16/2015: There is no change noted HPI General Date/Time Provider Initiated Documentation: 11/01/19 12:00 . HPI Narrative: This is a 54-year-old male with history of coronary artery disease status post multiple stents, paroxysmal atrial fibrillation, left MCA stroke, GERD, renal mass status post left partial nephrectomy, ongoing tobacco use who presents for evaluation of chest pain. Patient was actually just recently at [facility], and discharge for chest pain. Work-up at that time was unremarkable. His isosorbide nitrate was increased from 1 20-1 80, but no other changes. Today at 9:30 AM while sitting at Dr. Corral's office for regular appointment he developed some mild chest pain which she describes as feeling like someone punched him in the center of the chest. He denies any tearing or ripping sensation, he states that it feels identical to his previous episodes, including previous episodes where he required cardiac evaluation. He denies any syncope, significant shortness of breath, fever chills, cough, nausea vomiting or diarrhea. He does admit to very mild headache, as well as some radiation to his neck. He has no other complaints at this time. No other modifying factors. He denies significant worsening of his symptoms with getting up or walking around. Related Data Home Medications Medication Instructions Recorded Confirmed lansoprazole [Prevacid SoluTab] 60 mg PO DAILY 06/18/13 11/01/19 isosorbide mononitrate 120 mg PO DAILY 10/16/15 11/01/19 Eliquis 5 mg PO BID 30 Days #60 tab 02/24/18 10/03/19 Rosuvastatin Calcium 40 mg PO DAILY 05/09/18 10/02/19 clopidogrel [Plavix] 75 mg PO DAILY 07/24/18 11/01/19 amitriptyline 25 mg PO HS PRN 09/07/18 11/01/19 bupropion HCl 300 mg PO DAILY 04/18/19 11/01/19 carvedilol 3.125 mg tablet 6.25 mg PO BID tab 06/14/19 11/01/19 amlodipine 10 mg tablet See Rx Instructions .ROUTE .COMPLEX 06/29/19 11/01/19 sertraline 50 mg PO DAILY 07/06/19 11/01/19 oxycodone 5 mg PO Q6H PRN #14 tab 07/11/19 11/01/19 oxycodone 5 mg PO Q4H PRN #12 tab 07/27/19 11/01/19 oxycodone 5 mg PO Q6H PRN #20 tab 09/27/19 11/01/19 sulfamethoxazole 800 1 tab PO BID #14 tab 10/25/19 11/01/19 mg-trimethoprim 160 mg tablet Previous Rx's Medication Instructions Recorded Eliquis 5 mg PO BID 30 Days #60 tab 02/24/18 oxycodone 5 mg PO Q6H PRN #14 tab 07/11/19 oxycodone 5 mg PO Q4H PRN #12 tab 07/27/19 oxycodone 5 mg PO Q6H PRN #20 tab 09/27/19 sulfamethoxazole 800 1 tab PO BID #14 tab 10/25/19 mg-trimethoprim 160 mg tablet Allergies Allergy/AdvReac Type Severity Reaction Status Date / Time atorvastatin calcium AdvReac Intermediate liver Verified 11/01/19 12:03 [From Lipitor] problems niacin AdvReac Mild flushing Verified 11/01/19 12:03 adhesive from monitor tabs Allergy Intermediate jones Uncoded 11/01/19 12:03 General Stated Complaint: Chest Pain MARQUIS: 2 Review of Systems All systems reviewed & are unremarkable except as noted in HPI and below PFSH Medical History (Updated 11/01/19 @ 18:59 by Fareed Guido DO) Anemia (Chronic) Atrial fibrillation (Chronic) Back pain, chronic (Chronic) Chest pain (Chronic) Coronary artery disease (Chronic) Depression with anxiety (Chronic) Diverticulosis (Chronic) Duodenal ulcer (Chronic) Dysesthesia (Chronic) Dyslipidemia (Chronic) Dyspepsia (Chronic) Esophagitis (Chronic) Gastritis (Chronic) Hemiplegia (Chronic) History of kidney cancer (Chronic) Hx of adenomatous polyp of colon (Chronic) Inguinal hernia (Resolved) Ischemic stroke (Chronic) Lipoma of back (Chronic) Muscle wasting and atrophy, not elsewhere classified, other site (Acute) Occipital headache (Chronic) Penile pain (Acute) Pulmonary nodules (Chronic) Recurrent bilateral inguinal hernia (Resolved) Sleep apnea (Chronic) Spermatocele (Acute) Tobacco use (Chronic) Tubular adenoma of colon (Inactive 08/03/17) Umbilical hernia (Resolved) Surgical History cardiac cath (Inactive) 2014, 9 stents over the years since 2002. Jul or Aug was last stent put in per pt. Colonoscopy - MAC (Inactive 08/03/17) EGD - MAC (Inactive 08/03/17) History of loop recorder (Acute) placed a couple months ago per pt 2019 under left chest. History of radiofrequency ablation procedure for cardiac arrhythmia (Acute) Hx of appendectomy (Chronic) Olecranon bone spur (Acute) s/p debridement on 07/27/2019 Partial Nephrectomy (Inactive) left side for renal cell cancer. Has yearly CT scan. 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 3.ENT: Atraumatic external nose and ears. Moist MM. Neck: Symmetric, trachea midline, No thyromegaly. 4.CVS: +S1/S2, No murmurs or gallops. Peripheral pulses 2+ and equal in all extremities. Brisk capillary refill in all extremities. Pulses equal bilaterally. 5.RESP: Unlabored respiratory effort. Clear to auscultation bilaterally. No wheezes rales or rhonchi 6.GI: Soft, Nontender/Nondistended, No hepatosplenomegaly. No guarding or rebound. 7.MSK: Normocephalic/Atraumatic, Extremities w/o deformity or ttp No cyanosis or clubbing, Normal movement of all extremities 8.Skin: Warm, Dry. No rashes or lesions. 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 Sensation grossly intact, no focal neurologic deficits. 10.Psych: (AAO) x3. Appropriate mood and affect Course Vital Signs Vital signs: Vital Signs Temperature 36.7 C 11/01/19 12:01 Pulse 76 11/01/19 12:01 Respiratory Rate 18 11/01/19 12:01 Blood Pressure 142/83 H 11/01/19 12:01 Pulse Oximetry 98 11/01/19 12:01 Temperature 36.7 C 11/01/19 12:01 Temperature Source Skin 11/01/19 12:01 Pulse 76 11/01/19 12:01 Respiratory Rate 15 11/01/19 12:34 Respiratory Effort Non-Labored 11/01/19 12:34 Respiratory Depth Normal 11/01/19 12:34 Respiratory Pattern Normal 11/01/19 12:34 Blood Pressure 142/83 H 11/01/19 12:01 Pulse Oximetry 98 11/01/19 12:01 Oxygen Delivery Method Room Air 11/01/19 12:01 Oxygen Flow Rate 0 11/01/19 12:01 Pain Level 5 11/01/19 12:01 Lab/Test Results Lab/Test Results: Laboratory Tests Range/Units 11/01/19 12:18 WBC (4.4-10.8) k/cumm 12.07 H RBC (4.50-6.00) m/cumm 4.24 L Hgb (13.5-17.5) g/dL 13.0 L Hct (40.0-50.0) % 38.1 L MCV (80-95) fL 89.9 MCH (27.0-33.0) pg 30.7 MCHC (32.0-36.0) g/dL 34.1 RDW (11.8-14.1) % 14.2 H Plt Count (130-400) x1000/uL 252 MPV (8.0-11.0) fL 9.0 Immature Gran % % 0.2 Neutrophils % 70.7 Lymphocytes % 19.7 Monocytes % 7.7 Eosinophils % 1.5 Basophils % 0.2 Absolute Neutrophils (1.2-6.7) k/cumm 8.53 H Absolute Lymphocytes (1.2-3.4) k/cumm 2.38 Absolute Monocytes (0.11-0.7) k/cumm 0.93 H Absolute Eosinophils (0.0-0.7) k/cumm 0.18 Absolute Basophils (0.0-0.2) k/cumm 0.02
[2019-11-01 12:46] LABS: ALT 23 U/L (16-63); AST 21 U/L (15-37); Albumin 3.6 g/dL (3.4-5.0); Alkaline Phosphatase 81 U/L (46-116); Anion Gap 10.5 mmol/L (3-11); BUN 18 mg/dL (7-18); Bilirubin, Total 0.2 mg/dL (0.2-1.0); CO2 24.5 mmol/L (21.0-32.0); CREATININE 1.08 mg/dL (0.70-1.30); Calcium 8.3 mg/dL (8.5-10.1); Chloride 104 mmol/L (98-107); Glucose 95 mg/dL (74-106); Lipase 145 U/L (73-393); NT-proBNP 113 pg/mL (<300); Sodium 139 mmol/L (136-145); Total Protein 7.2 g/dL (6.4-8.2); Troponin I < 0.05 ng/Ml (<0.06)
--- NOTE | 2019-11-01 13:45 | DI.US_ITS ---
APPROVED REPORT EXAM: Limited 2D Echocardiogram Patient Location: ER Director [employer] Sciences: Louise Bui RDCS (AE) Rhythm: NSR Indications: concern for atypical L vent anatomy vs. aneurysm Conclusion Left Ventricle : The left ventricle is normal size. There is no evidence of an LV aneurysm though co ntrast was not utilized. There is normal left ventricular wall thickness. The left ventricular systol ic function is normal. The left ventricular ejection fraction is within the normal range. There is no rmal LV segmental wall motion. LVEF is estimated to be 60-65%. Compared to echocardiogram dated 10/16/2015: There is no change noted Wall motion Left Ventricle The left ventricle is normal size. There is no evidence of an LV aneurysm though contrast was not uti lized. The left ventricular systolic function is normal. The left ventricular ejection fraction is wi thin the normal range. There is normal left ventricular wall thickness. There is normal LV segmental wall motion. limited study LVEF is estimated to be 60-65%. Right Ventricle Not visualized Not visualized Atria Not visualized Not visualized Aortic Valve Not visualized Not visualized Not visualized Mitral Valve Not visualized Not visualized Tricuspid Valve Not visualized Not visualized Great Vessels Not visualized Pericardium Not visualized 2D Dimensions IVSd 1.20 cm M: 0.6-1.2 LV EDV A2C 89.8 mL PWd 1.45 cm M: 0.6 - 1.2 LV EDV A4C 79.7 mL LVDd 5.30 cm M: 4.2 - 5.8 EF AP4 63.5 % LVDs 3.60 cm M: 2.5 - 4.0 EF AP2 66.5 % LVEF (Teich) 59.6 % EF BP 62.3 % LVEF (Crawford's) 62.33 % M: 52 - 72 LV Volume 61.58 mL M: 62 - 150 LV Volume Index 28.64 mL/m2 M: 34 - 74 FS 31.90 % LV Diastology TR Peak Velocity 2.28 m/s Tricuspid Valve TR P. Gradient 20.8 mmHg TV Regurg Vmax 2.28 m/s
[2019-11-01 15:30] LABS: Troponin I < 0.05 ng/Ml (<0.06)
--- NOTE | 2019-11-01 16:04 | NUR.NOTE ---
Nursing Note: Amb patient per Dr. Guido, stated no pain.
--- NOTE | 2019-11-01 18:50 | NUR.NOTE ---
Nursing Note: Pt care report transferred to [facility] ([facility]). All Pt care, information, and interventions transferred at this time. At the time of transfer Pt is alert and oriented, vitals stable.
[2019-11-01 20:04] LABS: Troponin I < 0.05 ng/Ml (<0.06)
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
[2019-11-01 20:31] LABS: TSH (W/Ref FT4) 1.07 uIU/mL (0.36-3.74)
[2019-11-01] MEDS: Carvedilol 3.125 MG TAB 6.25 MG PO (20:36)
[2019-11-01] MEDS: Rosuvastatin 10 MG TAB 40 MG PO (20:36)
[2019-11-01] MEDS: Sulfameth/Trimeth DS TAB 1 TAB PO (20:36)
[2019-11-01 20:38] LABS: INR 1.1 (0.9-1.1); Prothrombin Time 10.6 sec (9.3-11.0)
[2019-11-01] MEDS: Heparin 5,000 UNITS/ML VIAL 5000 UNITS SC (22:12)
[2019-11-01] MEDS: Amitriptyline 25 MG TAB PO (22:58)
[2019-11-01 23:40] LABS: Troponin I < 0.05 ng/Ml (<0.06)
[2019-11-02] VITALS (11 sets, daily range): BP systolic 110–139; BP diastolic 63–87; PULSE 55–75; RESP 12–23; TEMP 36.1–36.7; O2SAT 92–97
[2019-11-02] MEDS: Heparin 5,000 UNITS/ML VIAL 5000 UNITS SC (05:09)
[2019-11-02 05:59] LABS: HCT 40.4 % (40.0-50.0); HGB 13.8 g/dL (13.5-17.5); Mean Corp. HGB Concentration 34.2 g/dL (32.0-36.0); Mean Corpuscular Hemoglobin 30.7 pg (27.0-33.0); Mean Corpuscular Volume 89.8 fL (80-95); Mean Platelet Volume 9.3 fL (8.0-11.0); Platelet Count 257 x1000/uL (130-400); RBC Distribution Width 14.5 % (11.8-14.1); White Blood Cell Count 7.15 k/cumm (4.4-10.8)
[2019-11-02 06:08] LABS: ALT 24 U/L (16-63); AST 20 U/L (15-37); Albumin 3.5 g/dL (3.4-5.0); Alkaline Phosphatase 89 U/L (46-116); Anion Gap 8.4 mmol/L (3-11); BUN 19 mg/dL (7-18); Bilirubin, Total 0.1 mg/dL (0.2-1.0); CO2 26.6 mmol/L (21.0-32.0); Calcium 8.8 mg/dL (8.5-10.1); Chloride 107 mmol/L (98-107); Glucose 104 mg/dL (74-106); Potassium 4.4 mmol/L (3.5-5.1); Sodium 142 mmol/L (136-145)
[2019-11-02 06:15] LABS: Troponin I < 0.05 ng/Ml (<0.06)
[2019-11-02] MEDS: Sertraline 50 MG TAB PO (08:04)
[2019-11-02] MEDS: buPROPion-XL 150 MG TABCR 300 MG PO (08:04)
[2019-11-02] MEDS: Sulfameth/Trimeth DS TAB 1 TAB PO ×2 (08:04→19:53)
[2019-11-02] MEDS: Clopidogrel 75 MG TAB PO (08:10)
[2019-11-02] MEDS: Isosorbide Mononitrate 60 MG TABCR 180 MG PO (08:10)
[2019-11-02] MEDS: Carvedilol 3.125 MG TAB 6.25 MG PO ×2 (09:59→19:53)
[2019-11-02] MEDS: amLODIPine 10 MG TAB PO (10:00)
[2019-11-02 11:20] LABS: PTT Activated 30.7 sec (21.0-31.4)
--- NOTE | 2019-11-02 12:11 | W.PM.DS.N ---
Date of service: 11/02/19 Time of Service: 12:11 DS: Diagnosis Discharge Diagnosis (1) Unstable angina: Status: Acute (2) CAD (coronary artery disease): Status: Chronic (3) Tobacco abuse: Status: Suspected (4) Acute epididymo-orchitis: Status: Acute Discharge Plan Disposition Patient Disposition: [facility] Condition: Serious Discharge Details Chief Complaint: Chest Pain Clinical Impression: Chest pain Reason For Visit: UNSTABLE ANGINA PECTORIS Admit Date/Time: 11/01/19 18:04 Admit Provider: Adams Ventura Attending Provider: Adams Ventura Primary Care Provider: Delonte Corral ED Provider: Fareed Guido Hospital Course Hospital Course: Mr Anne is a 54 year old male with PMHx of CAD s/p several stents, on plavix, as well as paroxysmal Afib, on eliquis (last dose am of 11/01/2019), h/o L MCA CVA, and GERD, who was recently hospitalized at [facility] for chest pain, who was sent to [facility] ED on 11/01/2019 by his PCP as he had developed chest pain at rest during his regularly scheduled follow up appointment. Pain was relieved with nitroglycerin ointment. His troponins have been negative and he has had no acute ischemia on EKG. Pain recurred on morning of 11/02/2019, waking him up from sleep, lasted about a minute, and resolved on its own. The patient did not notify nursing of chest pain. On telemetry at 23:02, he had 5 beats of Vtach - it is unclear if the patient was asleep or awake. At this time, the patient is accepted to [facility] interventional cardiology service for a cardiac catherization, expected to happen later today. The patient is chest pain free at this time, initiated on heparin gtt more so for bridging given his history of CVA. He is hemodynamically stable and in agreement with transfer. Care for patient as well as preparation of his transfer summary on day of transfer took 45 minutes. Home Meds and New Rx's Prescriptions: New nitroglycerin [Nitrostat] 0.4 mg Tablet, Sublingual 0.4 mg sublingual Q5 MIN PRN X3 PRN (Reason: chest pain) Qty: 0 RF: 0 heparin (porcine) in 5 % dex 25,000 unit/250 mL(100 unit/mL) Parenteral Solution 25,000 units IV INFUSION Qty: 0 RF: 0 Continued carvedilol 3.125 mg tablet 6.25 mg PO BID RF: 0 sertraline 50 mg Tablet 50 mg PO DAILY RF: 0 sulfamethoxazole-trimethoprim 800-160 mg tablet 1 tab PO BID Qty: 14 RF: 0 lansoprazole [Prevacid SoluTab] 30 MG tablet,disintegrat, delay rel 60 mg PO DAILY RF: 0 isosorbide mononitrate 120 MG tablet extended release 24 hr 120 mg PO DAILY RF: 0 oxycodone 5 mg tablet 5 mg PO Q4H PRN (Reason: pain, severe) Qty: 12 RF: 0 Rosuvastatin Calcium 40 MG tablet 40 mg PO DAILY RF: 0 clopidogrel [Plavix] 75 mg Tablet 75 mg PO DAILY RF: 0 amitriptyline 25 mg Tablet 25 mg PO HS PRNRF: 0 bupropion HCl 150 mg Tablet Extended Release 24 Hr 300 mg PO DAILY RF: 0 amlodipine 10 mg tablet See Rx Instructions .ROUTE .COMPLEX RF: 0 Discontinued Eliquis 5 MG tablet 5 mg PO BID 30 Days Qty: 60 RF: 4 oxycodone 5 mg tablet 5 mg PO Q6H PRN (Reason: pain) Qty: 20 RF: 0 oxycodone 5 mg tablet 5 mg PO Q6H PRN (Reason: pain) Qty: 14 RF: 0 Discharge Instructions Referrals: Adams Flores MD [MD CONSULTING PHYSICIAN] - Activity:: bedrest Diet:: NPO Discharge Orders Discharge Orders: Discharge Order (Routine); Ordered 11/02/19 Ordered By: Chrissy Jarvis DS: Summary Status at Discharge Functional status at discharge: bed bound (on bed rest) Overall status at discharge: patient is not back to baseline Mental Status: mental status grossly normal Speech and Movement: speech and movement normal Mood: congruent mood Affect: normal affect Exam Narrative Exam Narrative: General: Very pleasant middle-aged male, A&Ox3, appears comfortable in bed HEENT: EOMI, MMM Heart: RRR, no m/r/g Lungs: CTAB Abdomen: soft, nontender, nondistended Extremities: no e/c/c BLE's Psych Mental Status: mental status grossly normal Speech and Movement: speech and movement normal Mood: congruent mood Affect: normal affect DS: Data Vitals/I&O Vitals and I&O: Vital Signs Temperature 36.7 C 11/02/19 11:35 Temperature Source Tympanic 11/02/19 11:35 Pulse 63 11/02/19 11:35 Pulse Rhythm Regular 11/02/19 07:40 Respiratory Rate 20 11/02/19 11:35 Respiratory Effort 11/02/19 07:40 Respiratory Depth Normal 11/02/19 07:40 Respiratory Pattern Normal 11/02/19 07:40 Blood Pressure 116/72 11/02/19 11:35 Pulse Oximetry 96 11/02/19 11:35 Oxygen Delivery Method Room Air 11/02/19 11:35 Oxygen Flow Rate 0 11/02/19 11:35 Pain Level 0 11/02/19 11:35 Intake & Output 11/01/19 11/02/19 11/02/19 23:59 11:59 23:59 Output Total 600 / 600 600 / 600 Balance -600 / -600 -600 / -600 Weight 95.708 kg 96.3 kg Output: Urine 600 / 600 600 / 600 Other: Urine Color Yellow Yellow Urine Appearance Clear Clear Urine Odor Normal Normal Voiding Methods Toilet Urinal Urinal Data Completed and Pending Completed studies during hospitalization [Text1]: CXR: Slight pulmonary interstitial prominence common nonspecific. No evidence CHF or pulmonary consolidation. Echo 11/01/2019: Left Ventricle : The left ventricle is normal size. There is no evidence of an LV aneurysm though contrast was not utilized. There is normal left ventricular wall thickness. The left ventricular systolic function is normal. The left ventricular ejection fraction is within the normal range. There is normal LV segmental wall motion. LVEF is estimated to be 60-65%. Compared to echocardiogram dated 10/16/2015: There is no change noted Labs on day of discharge: Labs from last 24 hours 11/02/19 11/02/19 11/02/19 10:26 05:30 05:30 WBC 7.15 D RBC 4.50 Hgb 13.8 Hct 40.4 MCV 89.8 MCH 30.7 MCHC 34.2 RDW 14.5 H Plt Count 257 MPV 9.3 Immature Gran % Neutrophils % Lymphocytes % Monocytes % Eosinophils % Basophils % Absolute Neutrophils Absolute Lymphocytes Absolute Monocytes Absolute Eosinophils Absolute Basophils PT INR APTT 30.7 Sodium 142 Potassium 4.4 Chloride 107 Carbon Dioxide 26.6 Anion Gap 8.4 BUN 19 H Creatinine 1.20 Estimated GFR/1.73 m2 >= 60.00 Glucose 104 Calcium 8.8 Magnesium Total Bilirubin 0.1 L AST 20 ALT 24 Alkaline Phosphatase 89 Troponin I NT-Pro-B Natriuret Pep Total Protein 7.0 Albumin 3.5 Lipase TSH 11/02/19 11/01/19 11/01/19 05:30 23:15 21:19 WBC RBC Hgb Hct MCV MCH MCHC RDW Plt Count MPV Immature Gran % Neutrophils % Lymphocytes % Monocytes % Eosinophils % Basophils % Absolute Neutrophils Absolute Lymphocytes Absolute Monocytes Absolute Eosinophils Absolute Basophils PT INR APTT Sodium Potassium Chloride Carbon Dioxide Anion Gap BUN Creatinine Estimated GFR/1.73 m2 Glucose Calcium Magnesium Total Bilirubin AST ALT Alkaline Phosphatase Troponin I < 0.05 < 0.05 Cancelled NT-Pro-B Natriuret Pep Total Protein Albumin Lipase TSH 11/01/19 11/01/19 11/01/19 20:21 19:40 19:30 WBC RBC Hgb Hct MCV MCH MCHC RDW Plt Count MPV Immature Gran % Neutrophils % Lymphocytes % Monocytes % Eosinophils % Basophils % Absolute Neutrophils Absolute Lymphocytes Absolute Monocytes Absolute Eosinophils Absolute Basophils PT 10.6 INR 1.1 APTT Sodium Potassium Chloride Carbon Dioxide Anion Gap BUN Creatinine Estimated GFR/1.73 m2 Glucose Calcium Magnesium 2.0 Total Bilirubin AST ALT Alkaline Phosphatase Troponin I < 0.05 NT-Pro-B Natriuret Pep Total Protein Albumin Lipase TSH 1.07 11/01/19 11/01/19 11/01/19 15:03 12:18 12:18 WBC 12.07 H RBC 4.24 L Hgb 13.0 L Hct 38.1 L MCV 89.9 MCH 30.7 MCHC 34.1 RDW 14.2 H Plt Count 252 MPV 9.0 Immature Gran % 0.2 Neutrophils % 70.7 Lymphocytes % 19.7 Monocytes % 7.7 Eosinophils % 1.5 Basophils % 0.2 Absolute Neutrophils 8.53 H Absolute Lymphocytes 2.38 Absolute Monocytes 0.93 H Absolute Eosinophils 0.18 Absolute Basophils 0.02 PT INR APTT Sodium 139 Potassium 4.0 Chloride 104 Carbon Dioxide 24.5 Anion Gap 10.5 BUN 18 Creatinine 1.08 Estimated GFR/1.73 m2 >= 60.00 Glucose 95 Calcium 8.3 L Magnesium Total Bilirubin 0.2 AST 21 ALT 23 Alkaline Phosphatase 81 Troponin I < 0.05 < 0.05 NT-Pro-B Natriuret Pep 113 Total Protein 7.2 Albumin 3.6 Lipase 145 TSH PFSH Medical History Anemia (Chronic) Atrial fibrillation (Chronic) Back pain, chronic (Chronic) Chest pain (Chronic) Coronary artery disease (Chronic) Depression with anxiety (Chronic) Diverticulosis (Chronic) Duodenal ulcer (Chronic) Dysesthesia (Chronic) Dyslipidemia (Chronic) Dyspepsia (Chronic) Esophagitis (Chronic) Gastritis (Chronic) Hemiplegia (Chronic) History of kidney cancer (Chronic) Hx of adenomatous polyp of colon (Chronic) Inguinal hernia (Resolved) Ischemic stroke (Chronic) Lipoma of back (Chronic) Muscle wasting and atrophy, not elsewhere classified, other site (Acute) Occipital headache (Chronic) Penile pain (Acute) Pulmonary nodules (Chronic) Recurrent bilateral inguinal hernia (Resolved) Sleep apnea (Chronic) Spermatocele (Acute) Tobacco use (Chronic) Tubular adenoma of colon (Inactive 08/03/17) Umbilical hernia (Resolved) Surgical History cardiac cath (Inactive) 2014, 9 stents over the years since 2002. Jul or Aug was last stent put in per pt. Colonoscopy - MAC (Inactive 08/03/17) EGD - MAC (Inactive 08/03/17) History of loop recorder (Acute) placed a couple months ago per pt 2019 under left chest. History of radiofrequency ablation procedure for cardiac arrhythmia (Acute) Hx of appendectomy (Chronic) Olecranon bone spur (Acute) s/p debridement on 07/27/2019 Partial Nephrectomy (Inactive) left side for renal cell cancer. Has yearly CT scan. 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
[2019-11-02] MEDS: Pantoprazole 40 MG VIAL IVP (14:44)
[2019-11-02] MEDS: Normal Saline Flush 10 ML SYR IVP (14:45)
--- NOTE | 2019-11-02 15:35 | NUR.NOTE ---
Patient told Dr. Jarvis he had chest pain about 20 minutes ago while he was sleeping and when Dr. Jarvis asked if he told anyone he said no. This was at about 1219. Dr. Jarvis ordered ECG. No chest pain noted at 1219 per patient. Nursing Note:
--- NOTE | 2019-11-02 15:37 | NUR.NOTE ---
Report given to Deloris ERIC, in ICU. Patient stable. Report given to evening shift RN Sherin.Nursing Note:
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
[2019-11-02 18:41] LABS: PTT Activated 41.2 sec (21.0-31.4)
[2019-11-02] MEDS: Amitriptyline 25 MG TAB PO (19:53)
[2019-11-02] MEDS: Rosuvastatin 10 MG TAB 40 MG PO (19:53)
[2019-11-03] VITALS (10 sets, daily range): BP systolic 107–133; BP diastolic 55–81; PULSE 57–73; RESP 12–26; TEMP 36–36.5; O2SAT 92–95
[2019-11-03 06:36] LABS: Abs Immature Grans 0.03 k/cumm (0.0-0.09); Absolute Basophil Count 0.05 k/cumm (0.0-0.2); Absolute Lymphocyte Count 2.25 k/cumm (1.2-3.4); Absolute Monocyte Count 0.79 k/cumm (0.11-0.7); Absolute Neutrophil Count 4.81 k/cumm (1.2-6.7); Basophils % 0.6; Eosinophils % 2.5; HCT 41.2 % (40.0-50.0); HGB 13.9 g/dL (13.5-17.5); Immature Grans % 0.4 %; Lymphocytes % 27.7; Mean Corp. HGB Concentration 33.7 g/dL (32.0-36.0); Mean Corpuscular Hemoglobin 30.5 pg (27.0-33.0); Mean Corpuscular Volume 90.4 fL (80-95); Mean Platelet Volume 9.5 fL (8.0-11.0); Monocytes % 9.7; Neutrophils % 59.1; Platelet Count 236 x1000/uL (130-400); RBC 4.56 m/cumm (4.50-6.00); RBC Distribution Width 14.7 % (11.8-14.1); White Blood Cell Count 8.13 k/cumm (4.4-10.8)
[2019-11-03 06:46] LABS: PTT Activated 45.9 sec (21.0-31.4)
[2019-11-03 06:53] LABS: Anion Gap 9.4 mmol/L (3-11); BUN 22 mg/dL (7-18); CO2 24.6 mmol/L (21.0-32.0); CREATININE 1.15 mg/dL (0.70-1.30); Calcium 8.8 mg/dL (8.5-10.1); Calculated LDL 82 mg/dL (<100); Chloride 105 mmol/L (98-107); Cholesterol 131 mg/dL (<200); Glucose 110 mg/dL (74-106); HDL Cholesterol 36 mg/dL (40-60); Magnesium 1.9 mg/dL (1.8-2.4); Potassium 4.3 mmol/L (3.5-5.1); Sodium 139 mmol/L (136-145); Triglyceride 69 mg/dL (<150)
[2019-11-03 06:54] LABS: Troponin I < 0.05 ng/Ml (<0.06)
[2019-11-03] MEDS: Carvedilol 3.125 MG TAB 6.25 MG PO (08:53)
[2019-11-03] MEDS: Sulfameth/Trimeth DS TAB 1 TAB PO (08:53)
[2019-11-03] MEDS: buPROPion-XL 150 MG TABCR 300 MG PO (08:53)
[2019-11-03] MEDS: amLODIPine 10 MG TAB PO (08:53)
[2019-11-03] MEDS: Isosorbide Mononitrate 60 MG TABCR 180 MG PO (08:53)
[2019-11-03] MEDS: Sertraline 50 MG TAB PO (08:53)
[2019-11-03] MEDS: Clopidogrel 75 MG TAB PO (08:53)
[2019-11-03] MEDS: Normal Saline Flush 10 ML SYR IVP (13:39)
[2019-11-03] MEDS: Pantoprazole 40 MG VIAL IVP (13:39)
== END 2019-11-03 16:10 | disposition short-term general hospital (02) | DRG 303 ==
LOC: ER 18:26 → MS 18:57 → ICU 11-03 12:18 → MS 11-06 14:49
PROVIDERS: General Practice; Admitting Provider Family Medicine; Emergency Provider Student in an Organized Health Care Education/Training Program; PCP Internal Medicine; Visit Provider Internal Medicine
DX: I25.110 Atherosclerotic heart disease of native coronary artery with unstable angina pectoris (principal); I47.2 Ventricular tachycardia; Z72.0 Tobacco use; N45.3 Epididymo-orchitis; Z75.1 Person awaiting admission to adequate facility elsewhere; Z95.5 Presence of coronary angioplasty implant and graft; Z79.02 Long term (current) use of antithrombotics/antiplatelets; I48.0 Paroxysmal atrial fibrillation; Z79.01 Long term (current) use of anticoagulants; Z86.73 Personal history of transient ischemic attack (TIA), and cerebral infarction without residual deficits; G89.29 Other chronic pain; M54.9 Dorsalgia, unspecified
CPT/HCPCS: 36415; 80048; 80053; 80061; 83690; 85027; 93005; 93307; 99223; 99239; 99285; 71046; 83735; 83880; 84443; 84484; 85025; 85610; 85730; 93010; J1644

== ENCOUNTER 2019-11-06 10:19 | Outpatient (CLI) | payer BC, SELFPAY ==
--- NOTE | 2019-11-06 09:55 | DI.US_ITS ---
EXAM: US SCROTUM CLINICAL HISTORY: r/o abcess after spermatocelectomy, N43.40-SPERMATOCELE OF EPIDIDYMIS TECHNIQUE: Ultrasound performed using standard protocol. COMPARISON: No exams were available for comparison FINDINGS: There is marked scrotal skin thickening. Testicles and epididymi are normal in size and appearance. There is no evidence of testicular torsion or epididymal orchitis. A complex mixed echogenicity is s een surrounding the left testicle. The findings could represent postsurgical hemorrhage or debris. S uperimposed infection cannot be excluded. IMPRESSION: Scrotal skin thickening. Echogenic material surrounding the left testicle could be postsurgical. A superimposed infection cannot be excluded.
== END 2019-11-06 10:39 ==
PROVIDERS: PCP Internal Medicine; Visit Provider Urology
DX: N43.40 Spermatocele of epididymis, unspecified (principal); Z98.890 Other specified postprocedural states; N50.89 Other specified disorders of the male genital organs; N49.2 Inflammatory disorders of scrotum
CPT/HCPCS: 76870

== ENCOUNTER 2019-12-07 16:34 | Outpatient (REF) | payer BC, SELFPAY ==
[2019-12-10 08:26] LABS: COVID-19 RT-PCR Result Not Detected
== END 2019-12-07 16:54 ==
LOC: NCHCN 16:34
PROVIDERS: PCP Internal Medicine; Visit Provider Physician Assistant
DX: Z20.828 Contact with and (suspected) exposure to other viral communicable diseases (principal)
CPT/HCPCS: U0003

== ENCOUNTER 2020-01-08 11:31 | Emergency (ER) | payer BC, SELFPAY ==
[2020-01-08] VITALS (56 sets, daily range): BP systolic 116–135; BP diastolic 74–81; PULSE 62–76; RESP 11–27; TEMP 36.6–36.9; O2SAT 91–98
--- NOTE | 2020-01-08 11:53 | W.ED.GENAD ---
Discharge Plan Disposition Patient Disposition: HOME Condition: Stable Discharge Details Chief Complaint: Chest Pain Clinical Impression: Chest pain Primary Care Provider: Delonte Corral ED Provider: Kitty Couch Home Meds and New Rx's Prescriptions: Continued carvedilol 3.125 mg tablet 6.25 mg PO BID RF: 0 sertraline 50 mg Tablet 50 mg PO DAILY RF: 0 lansoprazole [Prevacid SoluTab] 30 MG tablet,disintegrat, delay rel 60 mg PO BID RF: 0 isosorbide mononitrate 120 MG tablet extended release 24 hr 180 mg PO DAILY RF: 0 oxycodone 5 mg tablet 5 mg PO Q4H PRN (Reason: pain, severe) Qty: 12 RF: 0 nitroglycerin [Nitrostat] 0.4 mg Tablet, Sublingual 0.4 mg sublingual Q5 MIN PRN X3 PRN (Reason: chest pain) Qty: 0 RF: 0 Rosuvastatin Calcium 40 MG tablet 40 mg PO DAILY RF: 0 clopidogrel [Plavix] 75 mg Tablet 75 mg PO DAILY RF: 0 amitriptyline 25 mg Tablet 25 mg PO HS PRNRF: 0 bupropion HCl 150 mg Tablet Extended Release 24 Hr 300 mg PO DAILY RF: 0 amlodipine 10 mg tablet See Rx Instructions .ROUTE .COMPLEX RF: 0 Discharge Instructions Instructions: Chest Pain (ED) Additional Instructions: Follow up with primary care provider in 3-5 days. Return to ED sooner if any worsening or concerns. Increase oral fluids. If you continue to have chest pain take 1 nitroglycerin sublingually if no improvement in chest pain 15 to 20 minutes return to the ED immediately. Follow-up with your usability engineer as scheduled. Referrals: Delonte Corral MD [Primary Care Provider] - Medical Decision Making 54-year-old male presents to the ER with chest pressure. He reports began with dizziness, midsternal chest pressure associated with nausea at approximately 0745 this morning. 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 He takes Plavix 75 mg daily. He reports his chest pressure goes into both of his arms and his jaw feels weird. The dizziness is only with movement. He denies any trauma, vomiting diarrhea or any other complaints. 1157: EKG obtained rate of 72, normal sinus rhythm, no ST elevation or depression noted. Does have a incomplete right bundle branch block. Old EKG was available for review no significant change. COMPARISON: XR CHEST 2V PA LATERAL from 06/30/2019 XR CHEST 2V PA LATERAL from 11/01/2019 FINDINGS: MEDIASTINUM: Normal. HEART: Normal. PULMONARY VASCULATURE: Normal. LUNGS: No focal consolidating infiltrates. Mild linear atelectatic changes in the lung bases. PLEURAL SPACE: No pleural effusion or pneumothorax. BONE:Normal. OTHER FINDINGS:Poor inspiration. IMPRESSION: No acute pulmonary findings. 1233: Initial troponin is negative, will wait for 3-hour troponin. Upon patient reevaluation he is complaining of mild amount of chest pressure and jaw pain. Nitro sublingual ordered although hesitant to order this because his blood pressure is 116 systolic over 77. 1350: Spoke with Dr. Brito at [facility] which is patient's usability engineer regarding patient. He had a scheduled telehealth conference for today, he recommends interrogating his internal loop recorder. We will interrogate and await serial troponin. Patient states after 1 0.4 mg sublingual nitro that he is feeling better has no pain and no discomfort in his chest or his jaw. 1546: No significant findings on interrogation of the internal loop recorder. Second troponin is negative. Plan is to have patient discharged home with strict return instructions. Does have a follow-up appointment with Dr. oropeza at [facility]. Will instruct if any return of chest pain to take a nitro if no improvement in the next 15 to 20 minutes to return to the ER. Patient discharged home. Medical Records Medical records reviewed: Yes I reviewed the patient's medical records. HPI General Mode of arrival: ambulatory. Date/Time Provider Initiated Documentation: 01/08/20 11:33. Limitations to Documentation: no limitations. Information obtained by: patient. HPI Narrative: 54-year-old male presents to the ER with chest pressure. He reports began with dizziness, midsternal chest pressure associated with nausea at approximately 0745 this morning. 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 He takes Plavix 75 mg daily. He reports his chest pressure goes into both of his arms and his jaw feels weird. The dizziness is only with movement. He denies any trauma, vomiting diarrhea or any other complaints. Related Data Home Medications Medication Instructions Recorded Confirmed lansoprazole [Prevacid SoluTab] 60 mg PO BID 06/18/13 01/08/20 isosorbide mononitrate 180 mg PO DAILY 10/16/15 01/08/20 Rosuvastatin Calcium 40 mg PO DAILY 05/09/18 01/08/20 clopidogrel [Plavix] 75 mg PO DAILY 07/24/18 01/08/20 amitriptyline 25 mg PO HS PRN 09/07/18 01/08/20 bupropion HCl 300 mg PO DAILY 04/18/19 01/08/20 carvedilol 3.125 mg tablet 6.25 mg PO BID tab 06/14/19 01/08/20 amlodipine 10 mg tablet See Rx Instructions .ROUTE .COMPLEX 06/29/19 01/08/20 sertraline 50 mg PO DAILY 07/06/19 01/08/20 oxycodone 5 mg PO Q4H PRN #12 tab 07/27/19 01/08/20 nitroglycerin [Nitrostat] 0.4 mg SUBLINGUAL Q5 MIN PRN X3 11/02/19 01/08/20 PRN #0 tab Previous Rx's Medication Instructions Recorded oxycodone 5 mg PO Q4H PRN #12 tab 07/27/19 nitroglycerin [Nitrostat] 0.4 mg SUBLINGUAL Q5 MIN PRN X3 11/02/19 PRN #0 tab Allergies Allergy/AdvReac Type Severity Reaction Status Date / Time atorvastatin calcium AdvReac Intermediate liver Verified 01/08/20 11:44 [From Lipitor] problems niacin AdvReac Mild flushing Verified 01/08/20 11:44 adhesive from monitor tabs Allergy Intermediate jones Uncoded 01/08/20 11:44 General Stated Complaint: Chest Pain MARQUIS: 3 Review of Systems Narrative: Constitutional: Negative for weight loss, alert and oriented, well groomed, normal body habitus, appears comfortable. HEENT: Denies trauma, headaches, blurry vision, nasal discharge, sore throat, trouble swallowing. Chest: Denies palpitations, irregular rhythm, hypertension. Positive chest pain. History of 2 MIs, cardiac ablation. Respiratory: Denies Shortness of breath, cough, hemoptysis. GI: Denies abdominal pain, vomiting, diarrhea, constipation. Positive nausea. : Denies dysuria, hematuria, flank pain, rectal bleeding. Neuro: Denies blurry vision, weakness, syncope, headache or facial numbness. Positive dizziness. Hematologic: Denies easy bruising, intolerance to heat or cold, hair loss. FOR[facility]LY [facility] Medical History Anemia (Chronic) Atrial fibrillation (Chronic) Back pain, chronic (Chronic) Chest pain (Chronic) Coronary artery disease (Chronic) Depression with anxiety (Chronic) Diverticulosis (Chronic) Duodenal ulcer (Chronic) Dysesthesia (Chronic) Dyslipidemia (Chronic) Dyspepsia (Chronic) Esophagitis (Chronic) Gastritis (Chronic) Hemiplegia (Chronic) History of kidney cancer (Chronic) Hx of adenomatous polyp of colon (Chronic) Inguinal hernia (Resolved) Ischemic stroke (Chronic) Lipoma of back (Chronic) Muscle wasting and atrophy, not elsewhere classified, other site (Acute) Occipital headache (Chronic) Penile pain (Acute) Pulmonary nodules (Chronic) Recurrent bilateral inguinal hernia (Resolved) Sleep apnea (Chronic) Spermatocele (Acute) Tobacco use (Chronic) Tubular adenoma of colon (Inactive 08/03/17) Umbilical hernia (Resolved) Social History Smoking/Tobacco Use Status: Current every day Tobacco Type: cigarettes Alcohol Intake: never Drug use: Never Substance use type: does not use Current gender identity: male Do you feel safe at home: Yes Do you feel safe in your relationship?: Yes Exam Narrative Exam Narrative: Constitutional: Alert and oriented x3. Appears stated age. Normal body habitus. Head: Normocephalic, no trauma. Eyes: Pupils PERRLA, Red reflex noted, EOM's intact. Eyelids symmetrical without lesions, discharge, or swelling. ENT: Bilateral TM's WNL, External ear normal to inspection, no mastoid TTP, swelling, or erythema, Nasal turbinates WNL, no nasal discharge. Normal dentition, Posterior pharynx WNL, no exudate. Chest: RRR, Normal S1, S2, distal pulses intact. Resp: Lungs clear to auscultation bilaterally, no wheezes, rales, or rhonchi. Musculoskeletal: Normal gait, 5/5 strength to all four extremities. Skin: No suspicious rashes or lesions. Capillary refill less than 2 sec. Neurologic: Cranial nerves II-XII intact. Alert and oriented x 3. DTR's intact. Hematologic/Lymphatic: No ecchymosis, no lymphadenopathy. Course Vital Signs Vital signs: Vital Signs Temperature 36.9 C 01/08/20 11:36 Pulse 71 01/08/20 11:36 Respiratory Rate 18 01/08/20 11:36 Pulse Oximetry 96 01/08/20 11:36 Temperature 36.9 C 01/08/20 11:36 Temperature Source Skin 01/08/20 11:36 Pulse 71 01/08/20 11:36 Respiratory Rate 18 01/08/20 11:36 Respiratory Effort Non-Labored 01/08/20 11:40 Blood Pressure Position Supine 01/08/20 11:36 Pulse Oximetry 96 01/08/20 11:36 Oxygen Delivery Method Room Air 01/08/20 11:36 Oxygen Flow Rate 0 01/08/20 11:36 Pain Level 0 01/08/20 11:36
[2020-01-08 11:59] LABS: Abs Immature Grans 0.04 k/cumm (0.0-0.09); Absolute Basophil Count 0.04 k/cumm (0.0-0.2); Absolute Eosinophil Count 0.17 k/cumm (0.0-0.7); Absolute Lymphocyte Count 2.69 k/cumm (1.2-3.4); Absolute Monocyte Count 0.85 k/cumm (0.11-0.7); Absolute Neutrophil Count 6.75 k/cumm (1.2-6.7); Basophils % 0.4; Eosinophils % 1.6; HCT 39.4 % (40.0-50.0); HGB 13.5 g/dL (13.5-17.5); Immature Grans % 0.4 %; Lymphocytes % 25.5; Mean Corp. HGB Concentration 34.3 g/dL (32.0-36.0); Mean Corpuscular Hemoglobin 30.8 pg (27.0-33.0); Mean Corpuscular Volume 89.7 fL (80-95); Mean Platelet Volume 9.3 fL (8.0-11.0); Monocytes % 8.1; Platelet Count 309 x1000/uL (130-400); RBC 4.39 m/cumm (4.50-6.00); RBC Distribution Width 14.3 % (11.8-14.1); White Blood Cell Count 10.54 k/cumm (4.4-10.8)
[2020-01-08] MEDS: Normal Saline Flush 10 ML SYR IVP (12:00)
--- NOTE | 2020-01-08 12:01 | DI.RAD_ITS ---
EXAM: XR CHEST 2V PA LATERAL CLINICAL HISTORY: chest pain TECHNIQUE: 2D digital imaging was performed. COMPARISON: XR CHEST 2V PA LATERAL from 06/30/2019 XR CHEST 2V PA LATERAL from 11/01/2019 FINDINGS: MEDIASTINUM: Normal. HEART: Normal. PULMONARY VASCULATURE: Normal. LUNGS: No focal consolidating infiltrates. Mild linear atelectatic changes in the lung bases. PLEURAL SPACE: No pleural effusion or pneumothorax. BONE:Normal. OTHER FINDINGS:Poor inspiration. IMPRESSION: No acute pulmonary findings. DATA REPOSITORY: RADIATION DOSE DELIVERED:
[2020-01-08] MEDS: Ondansetron O.D.T. 4 MG TABEF (12:05)
[2020-01-08] MEDS: Meclizine 25 MG TAB PO (12:05)
[2020-01-08 12:21] LABS: ALT 20 U/L (16-63); AST 16 U/L (15-37); Albumin 3.6 g/dL (3.4-5.0); Alkaline Phosphatase 93 U/L (46-116); Anion Gap 8.1 mmol/L (3-11); BUN 17 mg/dL (7-18); Bilirubin, Total 0.2 mg/dL (0.2-1.0); CO2 27.9 mmol/L (21.0-32.0); CREATININE 1.08 mg/dL (0.70-1.30); Chloride 103 mmol/L (98-107); Glucose 91 mg/dL (74-106); Magnesium 1.8 mg/dL (1.8-2.4); Potassium 3.9 mmol/L (3.5-5.1); Sodium 139 mmol/L (136-145); Total Protein 7.4 g/dL (6.4-8.2)
[2020-01-08 12:22] LABS: Troponin I < 0.05 ng/Ml (<0.06)
[2020-01-08 15:35] LABS: Troponin I < 0.05 ng/Ml (<0.06)
== END 2020-01-08 15:56 | disposition home or self-care (01) ==
PROVIDERS: Emergency Provider Registered Nurse Emergency; PCP Internal Medicine
DX: R07.89 Other chest pain (principal); I25.2 Old myocardial infarction; Z95.818 Presence of other cardiac implants and grafts
CPT/HCPCS: 80053; 99285; 71046; 83735; 84484; 85025; 99284

== ENCOUNTER 2020-02-01 01:48 | Outpatient (CLI) | payer BC, SELFPAY ==
--- NOTE | 2020-02-01 09:56 | DI.RAD_ITS ---
EXAM: XR SHOULDER LT COMPLETE 2+V CLINICAL HISTORY: LT SHOULDER PAIN, M25.512. TECHNIQUE: 2D digital imaging was performed. COMPARISON: CR LEFT SHOULDER COMPLETE from 10/02/2011 FINDINGS: BONES: No acute fracture is present. No bony destructive lesion is seen. JOINTS: No dislocation present. There is mild spurring at the inferior glenoid. No tendon or joint s pace calcifications are seen. There are mild degenerative changes at the AC joint and mild spurring at the undersurface of the acromion. SOFT TISSUE: Normal. IMPRESSION: Mild degenerative changes. DATA REPOSITORY: RADIATION DOSE DELIVERED:
== END 2020-02-01 02:08 ==
PROVIDERS: PCP Internal Medicine; Visit Provider Internal Medicine
DX: M25.512 Pain in left shoulder (principal); M19.012 Primary osteoarthritis, left shoulder
CPT/HCPCS: 73030

== ENCOUNTER 2020-06-05 22:41 | Emergency (ER) | payer MEDICARE, SELFPAY ==
[2020-06-05 22:47] VITALS: BP 138/84; PULSE 66; RESP 16; TEMP 36.6; O2SAT 95
--- NOTE | 2020-06-05 22:50 | W.ED.GENAD ---
Discharge Plan Disposition Patient Disposition: HOME Condition: Stable Discharge Details Clinical Impression: Abrasion, corneal, Eye foreign body Primary Care Provider: Delonte Corral ED Provider: Elijah Dawson Home Meds and New Rx's Prescriptions: Continued carvedilol 3.125 mg tablet 6.25 mg PO BID RF: 0 sertraline 50 mg Tablet 50 mg PO DAILY RF: 0 lansoprazole [Prevacid SoluTab] 30 MG tablet,disintegrat, delay rel 60 mg PO BID RF: 0 isosorbide mononitrate 120 MG tablet extended release 24 hr 180 mg PO DAILY RF: 0 oxycodone 5 mg tablet 5 mg PO Q4H PRN (Reason: pain, severe) Qty: 12 RF: 0 nitroglycerin [Nitrostat] 0.4 mg Tablet, Sublingual 0.4 mg sublingual Q5 MIN PRN X3 PRN (Reason: chest pain) Qty: 0 RF: 0 Rosuvastatin Calcium 40 MG tablet 40 mg PO DAILY RF: 0 clopidogrel [Plavix] 75 mg Tablet 75 mg PO DAILY RF: 0 amitriptyline 25 mg Tablet 25 mg PO HS PRNRF: 0 bupropion HCl 150 mg Tablet Extended Release 24 Hr 300 mg PO DAILY RF: 0 amlodipine 10 mg tablet See Rx Instructions .ROUTE .COMPLEX RF: 0 Discharge Instructions Instructions: Corneal Abrasion (ED), Eye Foreign Body (ED) Additional Instructions: Ilotycin as directed. You may use [id number] lubricating drops, but do not use within 1 hour of use an antibiotic ointment. Avoid rubbing your eye. Please watch for new or worsening symptoms and return to the ER for any concerns. If you do not receive significant relief in the next 24-48 hours I recommend following up with an eyeglass lens generator Medical Decision Making 54-year-old gentleman presents with right eye irritation, suspected foreign body. I do visualize what appears to be a dark speck, foreign body. Tetracaine applied and I was unable to remove the foreign body using a Q-tip. I then evaluated the eye with fluorescein and a Bernard lamp, there did appear to be a small corneal abrasion at the location of the foreign body. Patient now reports feeling asymptomatic after the drops are applied. Will apply Ilotycin ointment now and give the rest of the tube to go home with, instilling 4 times a day for the next week. Patient was encouraged to follow-up with his eyeglass lens generator in the next 48 hours if no improvement of symptoms otherwise return here to the ER for reevaluation. Patient with no additional questions or concerns and is comfortable discharge. Medical Records Medical records reviewed: Yes I reviewed the patient's medical records. HPI General Mode of arrival: ambulatory. Date/Time Provider Initiated Documentation: 06/05/20 22:42. Limitations to Documentation: no limitations. Information obtained by: patient. HPI Narrative: 54-year-old gentleman with history of A. fib, on Plavix, CAD, presents to the ER for irritation to the right eye. He reports that he was working on his car earlier today did not notice getting anything in his eye but several hours later felt as though he had a foreign body in his eye. He has had a foreign body in his eye before and this feels similarly. He reports irritation and excessive tearing but no true pain. Denies trauma, recent illness, double vision or blurry vision. He does not wear contacts or glasses Related Data Home Medications Medication Instructions Recorded Confirmed lansoprazole [Prevacid SoluTab] 60 mg PO BID 06/18/13 03/18/20 isosorbide mononitrate 180 mg PO DAILY 10/16/15 03/18/20 Rosuvastatin Calcium 40 mg PO DAILY 05/09/18 03/18/20 clopidogrel [Plavix] 75 mg PO DAILY 07/24/18 03/18/20 amitriptyline 25 mg PO HS PRN 09/07/18 03/18/20 bupropion HCl 300 mg PO DAILY 04/18/19 03/18/20 carvedilol 3.125 mg tablet 6.25 mg PO BID tab 06/14/19 03/18/20 amlodipine 10 mg tablet See Rx Instructions .ROUTE .COMPLEX 06/29/19 03/18/20 sertraline 50 mg PO DAILY 07/06/19 03/18/20 oxycodone 5 mg PO Q4H PRN #12 tab 07/27/19 03/18/20 nitroglycerin [Nitrostat] 0.4 mg SUBLINGUAL Q5 MIN PRN X3 11/02/19 03/18/20 PRN #0 tab Previous Rx's Medication Instructions Recorded oxycodone 5 mg PO Q4H PRN #12 tab 07/27/19 nitroglycerin [Nitrostat] 0.4 mg SUBLINGUAL Q5 MIN PRN X3 11/02/19 PRN #0 tab Allergies Allergy/AdvReac Type Severity Reaction Status Date / Time atorvastatin calcium AdvReac Intermediate liver Verified 06/05/20 22:48 [From Lipitor] problems niacin AdvReac Mild flushing Verified 06/05/20 22:48 adhesive from monitor tabs Allergy Intermediate jones Uncoded 06/05/20 22:48 General Stated Complaint: EyeProblem MARQUIS: 5 Review of Systems Constitutional Constitutional: Denies fever(s) and Denies weakness Eyes Eyes: Denies blurry vision, Denies change in vision and Reports irritation ENT Ears, Nose, Mouth, and Throat: Denies sore throat Cardiovascular Cardiovascular: Denies chest pain and Denies dyspnea Respiratory Respiratory: Denies dyspnea Musculoskeletal Musculoskeletal: Denies numbness and Denies tingling Neurologic Neurologic: Denies numbness, Denies tingling and Denies weakness PFSH Medical History Anemia Atrial fibrillation Back pain, chronic Chest pain Coronary artery disease Depression with anxiety Diverticulosis Duodenal ulcer Dysesthesia Dyslipidemia Dyspepsia Esophagitis Gastritis Hemiplegia History of kidney cancer Hx of adenomatous polyp of colon Inguinal hernia Ischemic stroke Lipoma of back Muscle wasting and atrophy, not elsewhere classified, other site Occipital headache Penile pain Pulmonary nodules Recurrent bilateral inguinal hernia Sleep apnea Spermatocele Tobacco use Tubular adenoma of colon (08/03/17) Umbilical hernia Surgical History cardiac cath 2014, 9 stents over the years since 2002. Jul or Aug was last stent put in per pt. Colonoscopy - MAC (08/03/17) EGD - MAC (08/03/17) History of loop recorder placed a couple months ago per pt 2019 under left chest. History of radiofrequency ablation procedure for cardiac arrhythmia Hx of appendectomy Olecranon bone spur s/p debridement on 07/27/2019 Partial Nephrectomy left side for renal cell cancer. Has yearly CT scan. 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 Social History Smoking/Tobacco Use Status: Current every day Tobacco Type: cigarettes Alcohol Intake: never Drug use: Never Substance use type: does not use Current gender identity: male Do you feel safe at home: Yes Do you feel safe in your relationship?: Yes Exam Const General: cooperative, healthy appearing, comfortable and no acute distress Orientation: alert and awake [facility] Head: normal to inspection, normocephalic and atraumatic General nose exam: external nose normal Face and sinus: normal facial exam Mouth: moist mucous membranes Eyes Alignment and Position: alignment normal Periorbital: periorbital findings normal Eyelids: eyelids normal (Right upper lid flipped) Conjunctivae: conjunctival abnormality right conjunctival injection (Mild) diffuse Sclera: sclerae normal Cornea: corneas abnormal on the right fluorescein used, abrasion and foreign body other and fluorescein used Pupils: PERRL EOM: EOM intact bilaterally Direct ophthalmoscopy: normal light reflex Eyes/upper lids images: 1. Foreign body-abrasion Neck Neck: normal visual inspection, full ROM, trachea midline and supple Resp Effort & Inspection: normal respiratory effort and able to speak in complete sentences Skin General skin exam: no rashes or lesions noted Neuro General: patient alert, patient awake, moves all extremities and no focal motor deficits Speech: speech normal Sensory Exam: no sensory deficits noted Psych Appearance: grossly normal Mental Status: mental status grossly normal Course Vital Signs Vital signs: Vital Signs Temperature 36.6 C 06/05/20 22:47 Pulse 66 06/05/20 22:47 Respiratory Rate 16 06/05/20 22:47 Blood Pressure 138/84 06/05/20 22:47 Pulse Oximetry 95 06/05/20 22:47 Temperature 36.6 C 06/05/20 22:47 Temperature Source Skin 06/05/20 22:47 Pulse 66 06/05/20 22:47 Respiratory Rate 16 06/05/20 22:47 Blood Pressure 138/84 06/05/20 22:47 Blood Pressure Position Sitting 06/05/20 22:47 Pulse Oximetry 95 06/05/20 22:47 Oxygen Delivery Method Room Air 06/05/20 22:47 Oxygen Flow Rate 0 06/05/20 22:47
[2020-06-05] MEDS: Fluorescein STRIPS 100/BOX 1 MG (22:55)
[2020-06-05] MEDS: Tetracaine 0.5% 4 ML BTL (22:55)
[2020-06-05] MEDS: Erythromycin Ophth Oint 3.5 GM TUBE OD (23:08)
== END 2020-06-05 23:07 | disposition home or self-care (01) ==
PROVIDERS: Emergency Provider Physician Assistant; PCP Internal Medicine
DX: T15.01XA Foreign body in cornea, right eye, initial encounter (principal); X58.XXXA Exposure to other specified factors, initial encounter
CPT/HCPCS: 99284; 99283

== ENCOUNTER 2020-07-21 00:49 | Outpatient (CLI) | payer MEDICARE, SELFPAY ==
--- NOTE | 2020-07-21 | DI.CTLCSR_ITS ---
EXAM: CT CHEST LUNG CANCER SCREEN CLINICAL HISTORY: SCREENING FOR LUNG CA, CURRENT SMOKER, F17.210,F/U PULMONARY NODULES,R91.8 TECHNIQUE: COMPARISON: No exams were available for comparison FINDINGS: CT examination of the chest was performed utilizing low-dose lung cancer screening protocol. Images obtained through the upper abdomen show unremarkable appearanceof visualized portions of the liver an d spleen. There are multiple calcified and noncalcified pulmonary nodules in the lungs, the largest noncalcifie d nodule is a 5 millimeter in diameter right upper lobe nodule. There are severe changes of emphysem a. There is no pleural effusion. No mediastinal or hilar adenopathy. Coronary artery stents and/or calcifications noted. No thoracic aortic aneurysm. IMPRESSION: Multiple noncalcified and calcified pulmonary nodules. Severe pulmonary emphysema. Lung RADS Cat 2 - Benign Appearance / Behavior: Nodules with a very low likelihood of becoming a clin ically active cancer due to size or lack of growth Continue annual screening with LD CT in 12 months. RADIATION DOSE DELIVERED: 106.79mGy.cm Total DLP
== END 2020-07-21 01:09 ==
PROVIDERS: PCP Internal Medicine; Visit Provider Internal Medicine
DX: F17.210 Nicotine dependence, cigarettes, uncomplicated (principal); R91.8 Other nonspecific abnormal finding of lung field; Z12.2 Encounter for screening for malignant neoplasm of respiratory organs
CPT/HCPCS: G0297

== ENCOUNTER → 2020-09-02 07:44 | Outpatient (BNVA) | payer MEDICARE, SELFPAY | PROVIDERS: PCP Internal Medicine; Referring Provider Internal Medicine; Visit Provider Urology | DX: F52.21 Male erectile disorder (principal); Z98.890 Other specified postprocedural states; Z90.5 Acquired absence of kidney | CPT/HCPCS: 99213 ==

== ENCOUNTER 2020-09-02 09:10 | Outpatient (REF) | payer MEDICARE, SELFPAY ==
[2020-09-05 13:17] LABS: Testosterone, Total 463 ng/dL (240-950)
== END 2020-09-02 09:30 ==
LOC: LBN 09:10
PROVIDERS: PCP Internal Medicine; Visit Provider Urology
DX: F52.21 Male erectile disorder (principal)
CPT/HCPCS: 84402; 84403

== ENCOUNTER → 2020-09-08 07:56 | Outpatient (BNVA) | payer MEDICARE, SELFPAY | PROVIDERS: PCP Internal Medicine; Referring Provider Internal Medicine; Visit Provider Student in an Organized Health Care Education/Training Program | DX: M65.321 Trigger finger, right index finger (principal); M65.331 Trigger finger, right middle finger; R20.0 Anesthesia of skin; R20.2 Paresthesia of skin | CPT/HCPCS: 99214 ==

== ENCOUNTER → 2020-09-15 09:26 | Outpatient (BNVA) | payer MEDICARE, SELFPAY | PROVIDERS: PCP Internal Medicine; Referring Provider Internal Medicine; Visit Provider Internal Medicine Cardiovascular Disease | DX: I25.10 Atherosclerotic heart disease of native coronary artery without angina pectoris (principal); R07.9 Chest pain, unspecified; I48.0 Paroxysmal atrial fibrillation; E78.5 Hyperlipidemia, unspecified; Z98.890 Other specified postprocedural states | CPT/HCPCS: 99442 ==

== ENCOUNTER 2020-09-16 08:24 | Day surgery (SDC) | payer MEDICARE, SELFPAY ==
--- NOTE | 2020-09-16 08:11 | PDOC.DSDIS_ITS ---
Discharge Plan Disposition Patient Disposition: HOME Condition: Good Discharge Details Reason For Visit: Right index amd middle finger trigger fingers Attending Provider: Hola Ortiz Primary Care Provider: Delonte Corral Home Meds and New Rx's Prescriptions: New acetaminophen 500 mg tablet 500 mg PO Q6H PRN (Reason: pain) Qty: 60 RF: 2 Continued Xarelto 20 mg tablet 20 mg PO DAILY RF: 0 ranolazine [Ranexa] 500 mg tablet extended release 12 hr 500 mg PO BID RF: 0 hydrocodone-acetaminophen 5-325 mg tablet 1 tab PO TID PRNRF: 0 carvedilol 3.125 mg tablet 6.25 mg PO BID RF: 0 sertraline 50 mg Tablet 50 mg PO DAILY RF: 0 lansoprazole [Prevacid SoluTab] 30 MG tablet,disintegrat, delay rel 60 mg PO BID RF: 0 isosorbide mononitrate 120 MG tablet extended release 24 hr 180 mg PO DAILY RF: 0 nitroglycerin [Nitrostat] 0.4 mg Tablet, Sublingual 0.4 mg sublingual Q5 MIN PRN X3 PRN (Reason: chest pain) Qty: 0 RF: 0 Rosuvastatin Calcium 40 MG tablet 40 mg PO DAILY RF: 0 clopidogrel [Plavix] 75 mg Tablet 75 mg PO DAILY RF: 0 bupropion HCl 150 mg Tablet Extended Release 24 Hr 300 mg PO DAILY RF: 0 amlodipine 10 mg tablet See Rx Instructions .ROUTE .COMPLEX RF: 0 Discharge Instructions Stand Alone Forms: Diana Matias Finger Release Referrals: Hola Ortiz MD [ [facility] STAFF PHYSICIAN] - Activity:: Elevate Remove Dressings/Wound Care:: 72 hours Shower/Bathe:: 72 hours Diet:: As Tolerated Discharge Orders Discharge Orders: Discharge Order (Routine); Ordered 09/16/20 Ordered By: Beverley Velez DS: Diagnosis Discharge Diagnosis (1) Trigger finger, right middle finger: Status: Acute (2) Trigger finger, right index finger: Status: Acute
[2020-09-16 08:51] VITALS: BP 139/85; PULSE 72; RESP 16; TEMP 36.3; O2SAT 98
[2020-09-16 09:53] VITALS: BP 139/96; PULSE 62; RESP 16; O2SAT 98
[2020-09-16 10:02] VITALS: BP 142/87; PULSE 61; RESP 18; O2SAT 98
[2020-09-16] MEDS: Sodium Bicarbonate 50 MEQ/50 ML VIAL (10:13)
--- NOTE | 2020-09-16 10:33 | W.PM.OP ---
Date of service: 09/16/20 Time of Service: 10:33 Operative Note Operative Note DATE OF PROCEDURE: 09/16/20 PRE-OP DIAGNOSIS: RMF Trigger Finger POST-OP DIAGNOSIS: same PROCEDURE: Trigger Finger Release - Right Middle Finger SURGEON: Hola Ortiz ANESTHESIA: local ESTIMATED BLOOD LOSS: 0 PATHOLOGY: none sent TOURNIQUET TIME: 0 COMPLICATIONS: None Patient was transported to: same day Patient's condition: stable Indications: I have seen Adams in clinic for symptoms of a trigger finger. The catching, clicking, locking, and pain limited function. The diagnosis of trigger finger was evident. The symptoms had not responded to conservative measures. I discussed trigger finger release with the patient. I reviewed the risks of the procedure to include, but not limited to, bleeding, infection, pain, stiffness, incomplete release, damage to nerves or vessels, continued catching, recurrence. Despite these risks, the patient elected to proceed. Findings: There was a tightened A1 shukri which was released. The flexor tendons were inspected and the patient was able to move the finger without any catching, clicking, or locking. Procedure Description: Adams was greeted in the preoperative holding area where the correct side was identified and marked. The consent was reviewed with the patient and signed. All questions were answered. Adams was taken back to the operating room. The patient was placed into the supine position on the operating room table with the right arm on an arm board. All bony prominences were well padded. No prophylactic antibiotics were administered since this was a clean, elective hand surgical case. The right arm was then prepped with Chloraprep and draped in a standard fashion with stockinette and extremity drape. A timeout to confirm correct identity, side and site, procedure, allergies, anesthesia, and medical concerns was performed. The surgical site was marked as a longitudinal incision directly over the A1 shukri of the right middle finger. This was confirmed with palpation during finger flexion. This area, overlying the metacarpal head, was then anesthetized with 1% Lidocaine. The patient tolerated this well and once the anesthetic had setup, the procedure began. A longitudinal incision was made through skin only, approximately 1cm. The deep tissues were dissected bluntly. Once the A1 shukri and flexor tendons were identified the soft tissue including neurovascular structures were retracted medially and laterally. There were no crossing structures over the A1 shukri. The proximal edge of the shukri was identified and the shukri was incised with tenotomy scissors. There was a release of the tendons once this was fully released. The tendons were then removed from the wound and inspected. Excess synovium was resected. The tendons were then returned and the patient was asked to move the finger into deep flexion and back to extension. There was no recreation of the pre-operative symptoms. The hand was then once more inspected for any A0 shukri or area of possible constriction. The wound was then irrigated and the skin was closed with a 4-0 Nylon. This was dressed with gauze and a Conform dressing. The patient tolerated the procedure well and was returned to the Same Day Surgery area in a stable condition suffering no known complication.
== END 2020-09-16 10:24 | disposition home or self-care (01) ==
LOC: SUR 08:25
PROVIDERS: PCP Internal Medicine; Visit Provider Student in an Organized Health Care Education/Training Program
PROC: (CPT 26055; principal; 2020-09-16 10:15)
DX: M65.331 Trigger finger, right middle finger (principal)
CPT/HCPCS: 26055

== ENCOUNTER → 2020-09-25 10:49 | Outpatient (BNVA) | payer MEDICARE, SELFPAY | PROVIDERS: PCP Internal Medicine; Referring Provider Internal Medicine; Visit Provider Physician Assistant Surgical | DX: Z47.89 Encounter for other orthopedic aftercare (principal); M65.331 Trigger finger, right middle finger ==

== ENCOUNTER → 2020-09-30 00:58 | Outpatient (CLI) | payer OTHER, SELFPAY ==
--- NOTE | 2020-09-30 | DI.CT_ITS ---
EXAM: CT ABDOMEN PELVIS W CLINICAL HISTORY: LT FLANK PAIN,R10.9,H/O HERNIA,Z87.898 TECHNIQUE: Imaging Protocol: Axial computed tomography images with coronal and sagittal reformatted images were created and reviewed CONTRAST MATERIAL: Intravenous: Omnipaque 350 Contrast volume:100 mL Oral: Yes COMPARISON: CT CT ABDOMEN PELVIS WO from 10/01/[address] ABDOMEN PELVIS WO from 10/01/[address] CHEST LUNG CANCER SCREEN from 07/21/2020 FINDINGS: ABDOMEN: Lung Bases: Dependent atelectasis. Calcified granuloma. There is a stable pulmonary nodule in the r ight middle lobe. Liver: Normal density. There are few tiny hypodensities in the liver which are too small for further characterization, but likely reflect small cysts. Portal, Superior Mesenteric, and Splenic Veins: Unremarkable. Gallbladder and Biliary Tract: No radiodense calculus or dilation. Pancreas: Normal density, no abnormal calcifications or inflammatory process. Spleen: Normal. Adrenals: No masses seen. Kidneys: The right kidney is unremarkable. There are again seen postsurgical changes in the superior pole of the left kidney. Calcifications are again seen in the midpole of the left kidney which may reflect non-obstructing calculi. No evidence of a recurrent or residual mass. Abdominal Aorta: Abdominal portion non-dilated. Moderate atherosclerosis. Bowel: No obstruction or bowel wall thickening. No evidence of appendicitis. Diverticulosis in the d escending and sigmoid colon but no evidence of acute diverticulitis. Peritoneal Cavity: No ascites, collection or mesenteric inflammatory response. Lymph Nodes: Within normal limits. Bones: Degenerative changes in the spine. Soft Tissues: Unchanged postsurgical changes in the left flank. PELVIS: Bladder: Symmetric distention, no gross wall thickening. Reproductive Organs: Unremarkable as visualized. Lymph Nodes: Within normal limits. Bones: Degenerative changes in the spine. IMPRESSION: 1. Stable postsurgical changes in the left kidney in the left flank. 2. No evidence of obstructive uropathy. RADIATION DOSE DELIVERED: 1,486.14mGy.cm Total DLP DATA REPOSITORY: All CT scans at this facility are submitted to the National Radiology Data Registry (NRDR) Dose Index Registry (DIR) with the [employer] (ACR). RADIATION OPTIMIZATION: All CT scans at this facility use at least one of these dose optimization te chniques: automated exposure control; mA and/or kV adjustment per patient size (includes targeted exa ms where dose is matched to clinical indication); or iterative reconstruction.
[2020-09-30 08:34] LABS: CREATININE 1.12 mg/dL (0.70-1.30)
[2020-09-30] MEDS: Omnipaque 350 MG/ML 50 ML BTL IJ (08:45)
[2020-09-30] MEDS: Omnipaque 350 MG/ML 100 ML BTL IJ (08:46)
[2020-09-30] MEDS: Normal Saline - Diluent 50 ML VIAL IV (08:47)
[2020-09-30] MEDS: Breeza Beverage 473 ML BTL PO (08:54)
== END ==
PROVIDERS: PCP Internal Medicine; Visit Provider Internal Medicine
DX: R10.9 Unspecified abdominal pain (principal); Z87.898 Personal history of other specified conditions; Z01.812 Encounter for preprocedural laboratory examination
CPT/HCPCS: 74177; 82565; J3490; Q9967

== ENCOUNTER 2020-10-13 07:58 | Emergency (ER) | payer OTHER, SELFPAY ==
[2020-10-13] VITALS (25 sets, daily range): BP systolic 110–130; BP diastolic 73–83; PULSE 65–73; RESP 15–20; TEMP 36.5–36.6; O2SAT 92–97
--- NOTE | 2020-10-13 08:00 | RT.EKG_ITS ---
APPROVED REPORT Exam: Resting ECG Patient Location: E HR:70 bpm ECG Measurements Heart Rate 70 AXIS HI 162 P 48 QRSd 88 QRS 12 QT 387 T 56 QTc 418 Conclusion Sinus rhythm...normal P axis, V-rate 60- 99 sinus rhythm at 70, normal axis, no acute ischemic changes, nondiagnostic EKG
--- NOTE | 2020-10-13 08:09 | W.ED.GENAD ---
Discharge Plan Disposition Patient Disposition: HOME Condition: Stable Discharge Details Clinical Impression: Diverticulitis Primary Care Provider: Delonte Corral ED Provider: Cailin Barton Home Meds and New Rx's Prescriptions: New amoxicillin-pot clavulanate [Augmentin] 875-125 mg tablet 1 tab PO TID Qty: 41 RF: 0 Continued Xarelto 20 mg tablet 20 mg PO DAILY RF: 0 ranolazine [Ranexa] 500 mg tablet extended release 12 hr 500 mg PO BID RF: 0 hydrocodone-acetaminophen 5-325 mg tablet 1 tab PO TID PRNRF: 0 carvedilol 3.125 mg tablet 6.25 mg PO BID RF: 0 sertraline 50 mg Tablet 50 mg PO DAILY RF: 0 lansoprazole [Prevacid SoluTab] 30 MG tablet,disintegrat, delay rel 60 mg PO BID RF: 0 isosorbide mononitrate 120 MG tablet extended release 24 hr 180 mg PO DAILY RF: 0 nitroglycerin [Nitrostat] 0.4 mg Tablet, Sublingual 0.4 mg sublingual Q5 MIN PRN X3 PRN (Reason: chest pain) Qty: 0 RF: 0 acetaminophen 500 mg tablet 500 mg PO Q6H PRN (Reason: pain) Qty: 60 RF: 2 Rosuvastatin Calcium 40 MG tablet 40 mg PO DAILY RF: 0 clopidogrel [Plavix] 75 mg Tablet 75 mg PO DAILY RF: 0 bupropion HCl 150 mg Tablet Extended Release 24 Hr 300 mg PO DAILY RF: 0 amlodipine 10 mg tablet See Rx Instructions .ROUTE .COMPLEX RF: 0 Discharge Instructions Instructions: Amoxicillin/Clavulanate Potassium (By mouth), Diverticulitis (ED), Diverticulitis Diet (ED) Additional Instructions: Please return immediately to the emergency department if you develop any new or worsening symptoms, if your condition does not improve as expected, or if you become otherwise concerned. It is extremely important that you call soon as possible to make an appointment to be seen in follow-up for this visit by your primary care doctor. Stand Alone Forms: Work Release Referrals: Delonte Corral MD [Primary Care Provider] - Discharge Data Discharge Date/Time-TO BE ENTERED AT DEPARTURE: 10/13/20 11:25 Medical Decision Making Adams Fam is a 55-year-old man who presented to the emergency department with pain across the lower abdomen worse in the left lower quadrant for the past 3 to 4-week after having negative CT abdomen/pelvis with contrast on 09/30/20 for this complaint; pain unchanged over time. On exam patient is well and nontoxic-appearing. No tenderness of the upper quadrants or epigastrium, mild tenderness palpation of the right lower quadrant suprapubic area, moderate tenderness palpation left lower quadrant. No peritoneal signs. Unclear etiology of pain given negative CT and no change in symptoms since that time. Concern for colitis, diverticulitis, UTI, other. Exam/history at this time not consistent with sepsis, acute aortic pathology, acute coronary syndrome, acute testicular pathology. Plan for screening labs, will monitor and reassess. Labs unrevealing, WBC 10.14. Plan for repeat CT abdomen/pelvis. CT shows mild diverticulitis. Given patient reports feeling overall well, has been eating and drinking without issue, no fever, no vomiting, mild disease on CT, plan for outpatient treatment with Augmentin. Patient states that he would prefer to be discharged to the post admitted. I had a lengthy discussion with Patient regarding return to emergency department precautions, home care, and importance of outpatient follow-up. Pt verbalizes understanding of the plan and is amenable. Patient discharged to home with clear plan for outpatient follow-up. All questions were answered. Disposition decision was made weighing the risks and benefits of hospitalization versus outpatient treatment, the risk for further decompensation, and the patient's wishes. Medical Records Medical records reviewed: Yes I reviewed the patient's medical records. Imaging Data Radiologic Study: Attestation: I personally reviewed and interpreted this imaging study as follows: Radiologist's impression: EXAM: CT ABDOMEN PELVIS W CLINICAL HISTORY: lower abdominal pain, worse on left TECHNIQUE: Imaging Protocol: Axial computed tomography images with coronal and sagittal reformatted images were created and reviewed CONTRAST MATERIAL: Intravenous: Omnipaque 350 Contrast volume:99 mL Oral: No COMPARISON: CT CT ABDOMEN PELVIS W from 09/30/2020 FINDINGS: ABDOMEN: Lung Bases: Dependent atelectasis. Liver: Normal density. There are few tiny hypodensities. They are too small for further characterization but likely reflect small cysts. Portal, Superior Mesenteric, and Splenic Veins: Unremarkable. Gallbladder and Biliary Tract: No radiodense calculus or dilation. Pancreas: Normal density, no abnormal calcifications or inflammatory process. Spleen: Normal. Adrenals: No masses seen. Kidneys: Normal size, contour and axis. Bilateral nonobstructing stones. No masses seen. Stable postsurgical changes in the left kidney. Abdominal Aorta: Abdominal portion non-dilated. Atherosclerosis. Bowel: No obstruction or bowel wall thickening. Appendix is unremarkable. Diverticulosis seen in the descending and sigmoid colon. Mild inflammation seen at the junction of the descending and sigmoid colon with bowel wall thickening involving segments of the distal descending and sigmoid colon. The findings are suggestive of acute diverticulitis. No abscess or free air is noted. Peritoneal Cavity: No ascites, collection or mesenteric inflammatory response. No free air. Lymph Nodes: Within normal limits. Bones: Degenerative changes. Soft Tissues: Postsurgical changes in the left flank. PELVIS: Bladder: Symmetric bladder wall thickening likely secondary to decreased distension. No inflammatory changes are seen around the urinary bladder. Reproductive Organs: Unremarkable as visualized. Lymph Nodes: Within normal limits. Bones: Degenerative changes. IMPRESSION: Findings suggestive of mild acute diverticulitis at the junction of the descending and sigmoid colon. No free air or abscess. Lab Data Lab results reviewed: Yes I reviewed the patient's lab results. Labs: Laboratory Tests Range/Units 10/13/20 10/13/20 10/13/20 08:20 08:20 09:00 WBC (4.4-10.8) 10^3/uL 10.14 RBC (4.36-5.78) 10^6/uL 4.37 Hgb (13.5-17.5) g/dL 13.4 L Hct (40.0-50.0) % 39.3 L MCV (80-95) fL 89.9 MCH (27.0-33.0) pg 30.7 MCHC (32.0-36.0) % 34.1 RDW (11.8-14.1) % 13.6 Plt Count (130-400) 10^3/uL 300 MPV (8.0-11.0) fL 9.1 Immature Gran % 0.5 Neutrophils % 67.5 Lymphocytes % 22.2 Monocytes % 7.3 Eosinophils % 1.9 Basophils % 0.6 Nucleated RBC % % 0 Absolute Neutrophils (1.2-6.7) 10^3/uL 6.85 H Absolute Lymphocytes (1.2-3.4) 10^3/uL 2.25 Absolute Monocytes (0.1-0.8) 10^3/uL 0.74 Absolute Eosinophils (0.0-0.7) 10^3/uL 0.19 Absolute Basophils (0.0-0.2) 10^3/uL 0.06 Sodium (136-145) mmol/L 137 Potassium (3.5-5.1) mmol/L 4.1 Chloride (98-107) mmol/L 105 Carbon Dioxide (21.0-32.0) mmol/L 24.1 Anion Gap (3-11) mmol/L 7.9 BUN (7-18) mg/dL 16 Creatinine (0.70-1.30) mg/dL 1.04 Estimated GFR/1.73 m2 (mL/min/1.73m2) >= 60.00 Glucose (74-106) mg/dL 98 Calcium (8.5-10.1) mg/dL 9.0 Total Bilirubin (0.2-1.0) mg/dL 0.2 AST (15-37) U/L 14 L ALT (16-63) U/L 20 Alkaline Phosphatase (46-116) U/L 95 Total Protein (6.4-8.2) g/dL 7.2 Albumin (3.4-5.0) g/dL 3.3 L Lipase (73-393) U/L 140 TSH (0.36-3.74) uIU/mL 1.12 Urine Color (Yellow) Yellow Urine Clarity (Clear) Clear Urine pH (5-8) 6.5 Ur Specific [place] (1.005-1.025) 1.025 Urine Protein (Negative) mg/dL Negative Urine Ketones (Negative) mg/dL Negative Urine Blood (Negative) Negative Urine Nitrite (Negative) Negative Urine Bilirubin (Negative) Negative Urine Urobilinogen (Up TO 0.2) EU/dL 0.2 Ur Leukocyte Esterase (Negative) Negative Urine Glucose (Negative) mg/dL Negative ECG Data Attestation: I personally reviewed and interpreted this ECG (s) as follows: Interpretation: EKG shows sinus rhythm at 70, normal axis, no acute ischemic changes, nondiagnostic EKG HPI General Mode of arrival: ambulatory. Date/Time Provider Initiated Documentation: 10/13/20 08:03. Limitations to Documentation: no limitations. Information obtained by: patient, RN notes reviewed and old records reviewed. HPI Narrative: Adams Degree is a 55-year-old man with a history of anemia, atrial fibrillation, hyperlipidemia, kidney cancer in the past, umbilical hernia, recurrent bilateral inguinal hernias presenting to emergency department with lower abdominal pain. Patient reports that he developed pain across his lower abdomen, worse in the left lower quadrant 3-4 weeks ago. Patient reports that he saw his PCP for this, and reports that he had a CT scan performed 09/30/2020 to check to make sure his hernias were okay. Per patient and record review, CT scan at that time was negative for acute process. Patient reports that his pain has been persistent and unchanged. Patient states that eating, movement do not worsen or improve pain. Patient states pain improves transiently after bowel movement or passing gas. He states that he has been eating and drinking as usual since onset of symptoms. Patient reports that bowel movements have not changed since onset of symptoms, he has anywhere between 2-6 soft bowel movements per day. No black or bloody bowel movements. He denies vomiting. On review of systems patient states that he has chronic mild testicular pain ever since having testicular surgery in the past, and reports that his pain is unchanged and not currently occurring. He denies any other pain, fevers, cough, shortness of breath, rash, numbness, weakness. Patient states that he feels otherwise well and in his usual state of health. Related Data Home Medications Medication Instructions Recorded Confirmed lansoprazole [Prevacid SoluTab] 60 mg PO BID 06/18/13 10/13/20 isosorbide mononitrate 180 mg PO DAILY 10/16/15 10/13/20 Rosuvastatin Calcium 40 mg PO DAILY 05/09/18 10/13/20 clopidogrel [Plavix] 75 mg PO DAILY 07/24/18 10/13/20 bupropion HCl 300 mg PO DAILY 04/18/19 10/13/20 carvedilol 3.125 mg tablet 6.25 mg PO BID tab 06/14/19 10/13/20 amlodipine 10 mg tablet See Rx Instructions .ROUTE .COMPLEX 06/29/19 10/13/20 sertraline 50 mg PO DAILY 07/06/19 10/13/20 nitroglycerin [Nitrostat] 0.4 mg SUBLINGUAL Q5 MIN PRN X3 11/02/19 10/13/20 PRN #0 tab hydrocodone 5 mg-acetaminophen 325 1 tab PO TID PRN 12/14/20 01/18/21 mg tablet ranolazine 500 mg tablet,extended 500 mg PO BID 09/08/20 10/13/20 release,12 hr rivaroxaban 20 mg tablet 20 mg PO DAILY 09/08/20 10/13/20 acetaminophen 500 mg PO Q6H PRN #60 tab 09/16/20 10/13/20 amoxicillin-pot clavulanate 1 tab PO TID #41 tab 10/13/20 [Augmentin] Previous Rx's Medication Instructions Recorded nitroglycerin [Nitrostat] 0.4 mg SUBLINGUAL Q5 MIN PRN X3 11/02/19 PRN #0 tab acetaminophen 500 mg PO Q6H PRN #60 tab 09/16/20 amoxicillin-pot clavulanate 1 tab PO TID #41 tab 10/13/20 [Augmentin] Allergies Allergy/AdvReac Type Severity Reaction Status Date / Time atorvastatin calcium AdvReac Intermediate liver Verified 10/13/20 08:09 [From Lipitor] problems niacin AdvReac Mild flushing Verified 10/13/20 08:09 adhesive from monitor tabs Allergy Intermediate jones Uncoded 10/13/20 08:09 General Stated Complaint: Abd Prob MARQUIS: 3 Review of Systems Narrative: Constitutional: denies fevers Eyes: denies eye pain ENT: denies ear pain, dental pain, sore throat Cardiovascular: denies chest pain, edema Respiratory: denies SOB, cough GI: denies vomiting, diarrhea, constipation, reports lower abdominal pain worse in the left lower quadrant as per HPI : denies flank pain MSK: denies back pain, neck pain, arthralgias, myalgias Skin: denies rash Neuro: denies headaches, numbness, weakness [facility] Medical History Anemia Atrial fibrillation Back pain, chronic Chest pain Coronary artery disease Depression with anxiety Diverticulosis Duodenal ulcer Dysesthesia Dyslipidemia Dyspepsia Erectile disorder, acquired, generalized, severe Esophagitis Gastritis Hemiplegia History of kidney cancer Hx of adenomatous polyp of colon Inguinal hernia Ischemic stroke Lipoma of back Muscle wasting and atrophy, not elsewhere classified, other site Occipital headache Penile pain Pulmonary nodules Recurrent bilateral inguinal hernia Sleep apnea Spermatocele Tobacco use Trigger finger, right index finger Trigger finger, right middle finger Tubular adenoma of colon (08/03/17) Umbilical hernia Surgical History (Updated 09/16/20 @ 08:40 by Severo Hrat) cardiac cath 2014, 9 stents over the years since 2002. Jul or Aug was last stent put in per pt. Colonoscopy - MAC (08/03/17) EGD - MAC (08/03/17) History of loop recorder placed a couple months ago per pt 2019 under left chest. History of radiofrequency ablation procedure for cardiac arrhythmia Hx of appendectomy Hx of tonsillectomy Olecranon bone spur s/p debridement on 07/27/2019 Partial Nephrectomy left side for renal cell cancer. Has yearly CT scan. 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 Social History Smoking/Tobacco Use Status: Current every day Tobacco Type: cigarettes Smoking risk assessment performed?: Yes Alcohol Intake: never Drug use: Never Substance use type: does not use Current gender identity: male Do you feel safe at home: Yes Do you feel safe in your relationship?: Yes Exam Narrative Exam Narrative: Constitutional: well and [id number], pleasant, conversing normally HENT: head atraumatic/normocephalic/normal inspection, mucous membranes moist Eyes: conjunctiva normal, sclera normal, pupils 3mm b/l Neck: no stridor, normal ROM, trachea midline Chest: normal inspection Resp: normal work of breathing, LCTAB Cardio: normal rate, normal rhythm, no murmur appreciated GI: abdomen soft, bilateral upper quadrants nontender to palpation, bilateral lower quadrants tender to palpation left greater than right, non-distended Skin: warm, dry, normal color, no rash Neuro: alert, not altered, grossly non-focal, normal tone Ext: no edema, no posterior calf TTP Psych: normal mood, normal affect, normal behavior Course Vital Signs Vital signs: Vital Signs Temperature 36.5 C 10/13/20 08:02 Pulse 69 10/13/20 08:02 Respiratory Rate 17 10/13/20 08:02 Blood Pressure 122/83 10/13/20 08:02 Pulse Oximetry 96 10/13/20 08:02 Temperature 36.5 C 10/13/20 08:02 Temperature Source Skin 10/13/20 08:02 Pulse 69 10/13/20 08:02 Respiratory Rate 17 10/13/20 08:02 Respiratory Effort Non-Labored 10/13/20 08:02 Blood Pressure 122/83 10/13/20 08:02 Blood Pressure Position Supine 10/13/20 08:02 Pulse Oximetry 96 10/13/20 08:02 Oxygen Delivery Method Room Air 10/13/20 08:02 Oxygen Flow Rate 0 10/13/20 08:02 Pain Level 6 10/13/20 08:02
[2020-10-13 08:35] LABS: Abs Immature Grans 0.05 10^3/uL (0.0-0.06); Absolute Basophil Count 0.06 10^3/uL (0.0-0.2); Absolute Eosinophil Count 0.19 10^3/uL (0.0-0.7); Absolute Lymphocyte Count 2.25 10^3/uL (1.2-3.4); Absolute Monocyte Count 0.74 10^3/uL (0.1-0.8); Absolute Neutrophil Count 6.85 10^3/uL (1.2-6.7); Basophils % 0.6; Eosinophils % 1.9; HCT 39.3 % (40.0-50.0); HGB 13.4 g/dL (13.5-17.5); Immature Grans % 0.5; Lymphocytes % 22.2; MCH 30.7 pg (27.0-33.0); MCHC 34.1 % (32.0-36.0); MCV 89.9 fL (80-95); MPV 9.1 fL (8.0-11.0); Monocytes % 7.3; Neutrophils % 67.5; Nucleated RBC 0 %; Platelet Count 300 10^3/uL (130-400); RBC 4.37 10^6/uL (4.36-5.78); RDW 13.6 % (11.8-14.1); RDW-SD 44.9 fL; WBC 10.14 10^3/uL (4.4-10.8)
[2020-10-13 08:58] LABS: ALT 20 U/L (16-63); AST 14 U/L (15-37); Albumin 3.3 g/dL (3.4-5.0); Alkaline Phosphatase 95 U/L (46-116); Anion Gap 7.9 mmol/L (3-11); BUN 16 mg/dL (7-18); Bilirubin, Total 0.2 mg/dL (0.2-1.0); CO2 24.1 mmol/L (21.0-32.0); CREATININE 1.04 mg/dL (0.70-1.30); Chloride 105 mmol/L (98-107); Glucose 98 mg/dL (74-106); Lipase 140 U/L (73-393); Potassium 4.1 mmol/L (3.5-5.1); Sodium 137 mmol/L (136-145); TSH (W/Ref FT4) 1.12 uIU/mL (0.36-3.74); Total Protein 7.2 g/dL (6.4-8.2)
[2020-10-13 09:03] LABS: Bilirubin Negative (Negative); Blood Negative (Negative); Clarity Clear (Clear); Glucose Negative (Negative); Ketones Negative (Negative); Leukocyte Esterase Negative (Negative); Nitrite Negative (Negative); Specific Gravity 1.025 (1.005-1.025); Urobilinogen 0.2 EU/dL (Up TO 0.2); pH 6.5 (5-8)
[2020-10-13] MEDS: Normal Saline - Diluent 50 ML VIAL IV (10:26)
[2020-10-13] MEDS: Omnipaque 350 MG/ML 100 ML BTL IJ (10:27)
--- NOTE | 2020-10-13 10:28 | DI.CT_ITS ---
EXAM: CT ABDOMEN PELVIS W CLINICAL HISTORY: lower abdominal pain, worse on left TECHNIQUE: Imaging Protocol: Axial computed tomography images with coronal and sagittal reformatted images were created and reviewed CONTRAST MATERIAL: Intravenous: Omnipaque 350 Contrast volume:99 mL Oral: No COMPARISON: CT CT ABDOMEN PELVIS W from 09/30/2020 FINDINGS: ABDOMEN: Lung Bases: Dependent atelectasis. Liver: Normal density. There are few tiny hypodensities. They are too small for further characteriza tion but likely reflect small cysts. Portal, Superior Mesenteric, and Splenic Veins: Unremarkable. Gallbladder and Biliary Tract: No radiodense calculus or dilation. Pancreas: Normal density, no abnormal calcifications or inflammatory process. Spleen: Normal. Adrenals: No masses seen. Kidneys: Normal size, contour and axis. Bilateral nonobstructing stones. No masses seen. Stable post surgical changes in the left kidney. Abdominal Aorta: Abdominal portion non-dilated. Atherosclerosis. Bowel: No obstruction or bowel wall thickening. Appendix is unremarkable. Diverticulosis seen in the descending and sigmoid colon. Mild inflammation seen at the junction of the descending and sigmoid c olon with bowel wall thickening involving segments of the distal descending and sigmoid colon. The f indings are suggestive of acute diverticulitis. No abscess or free air is noted. Peritoneal Cavity: No ascites, collection or mesenteric inflammatory response. No free air. Lymph Nodes: Within normal limits. Bones: Degenerative changes. Soft Tissues: Postsurgical changes in the left flank. PELVIS: Bladder: Symmetric bladder wall thickening likely secondary to decreased distension. No inflammatory changes are seen around the urinary bladder. Reproductive Organs: Unremarkable as visualized. Lymph Nodes: Within normal limits. Bones: Degenerative changes. IMPRESSION: Findings suggestive of mild acute diverticulitis at the junction of the descending and sigmoid colon. No free air or abscess. Findings were discussed with the emergency department on the date of the examination. RADIATION DOSE DELIVERED: 1,244.61mGy.cm Total DLP DATA REPOSITORY: All CT scans at this facility are submitted to the National Radiology Data Registry (NRDR) Dose Index Registry (DIR) with the [employer] ([employer]). RADIATION OPTIMIZATION: All CT scans at this facility use at least one of these dose optimization te chniques: automated exposure control; mA and/or kV adjustment per patient size (includes targeted exa ms where dose is matched to clinical indication); or iterative reconstruction.
[2020-10-13] MEDS: Amoxicillin 875/Clav. 125 TAB PO (11:16)
== END 2020-10-13 11:25 | disposition home or self-care (01) ==
PROVIDERS: Emergency Provider Student in an Organized Health Care Education/Training Program; PCP Internal Medicine
DX: K57.32 Diverticulitis of large intestine without perforation or abscess without bleeding (principal)
CPT/HCPCS: 36415; 80053; 83690; 93005; 99285; 74177; 81003; 84443; 85025; 93010; 99284; J3490

== ENCOUNTER → 2020-11-10 09:55 | Outpatient (BNVA) | payer OTHER, SELFPAY | PROVIDERS: PCP Internal Medicine; Referring Provider Student in an Organized Health Care Education/Training Program; Visit Provider Nurse Practitioner Adult Health | DX: G56.03 Carpal tunnel syndrome, bilateral upper limbs (principal) | CPT/HCPCS: 95911; 99215; 99243 ==

== ENCOUNTER → 2020-11-13 13:08 | Outpatient (BNVA) | payer OTHER, MEDICARE, SELFPAY | PROVIDERS: PCP Internal Medicine; Referring Provider Internal Medicine; Visit Provider Student in an Organized Health Care Education/Training Program | DX: G56.03 Carpal tunnel syndrome, bilateral upper limbs (principal) | CPT/HCPCS: 99214 ==

== ENCOUNTER 2020-11-25 06:19 | Day surgery (SDC) | payer OTHER, SELFPAY ==
[2020-11-25 06:48] VITALS: BP 132/83; PULSE 72; RESP 16; TEMP 36.5; O2SAT 97
[2020-11-25] MEDS: Lactated Ringers 1,000 ML 80 ML IV (07:05)
--- NOTE | 2020-11-25 07:19 | HPE_ITS ---
Date of service: 11/25/20 Time of Service: 07:19 Assessment and Plan Assessment and plan (1) Bilateral carpal tunnel syndrome: Status: Acute Assessment and plan: Adams is a 55-year-old bilateral carpal tunnel syndrome. He does have significant cardiac history but his cardiac health is relatively stable. He has been cleared by cardiology for any change in intervention. He has had previous surgeries in the past years without any intervention. He has had no symptoms of chest discomfort, chest pain, or recurrence of his coronary disease or increase in severity. He does have bilateral tunnel syndrome would like both these taken care of at the same time. We'll proceed with bilateral carpal tunnel release today. History of Present Illness History of Present Illness Chief Complaint: Bilateral Carpal Tunnel Syndrome He denies any current chest pain, shortness of breath, palpitations. Narrative: Adams is a 55-year-old who I saw previously in the office for bilateral carpal tunnel syndrome. He had neurology consult with nerve conduction studies which proved bilateral carpal tunnel syndrome. Please see the neurology note for full details as well as my office note for full details of his orthopedic history. He also had his regular cardiology visit in August which also state he was in his normal cardiac health. Review of Systems All systems reviewed & are unremarkable except as noted in HPI and below PFSH Medical History Anemia Atrial fibrillation Back pain, chronic Bilateral carpal tunnel syndrome Chest pain Coronary artery disease Depression with anxiety Diverticulosis Duodenal ulcer Dysesthesia Dyslipidemia Dyspepsia Erectile disorder, acquired, generalized, severe Esophagitis Gastritis Hemiplegia History of kidney cancer Hx of adenomatous polyp of colon Inguinal hernia Ischemic stroke Lipoma of back Muscle wasting and atrophy, not elsewhere classified, other site Occipital headache Penile pain Pulmonary nodules Recurrent bilateral inguinal hernia Sleep apnea Spermatocele Tobacco use Trigger finger, right index finger Trigger finger, right middle finger Tubular adenoma of colon (08/03/17) Umbilical hernia Surgical History cardiac cath 2013, 9 stents over the years since 2002. Jul or Aug was last stent put in per pt. Colonoscopy - MAC (08/03/17) EGD - MAC (08/03/17) History of back surgery partial fusion History of loop recorder placed a couple months ago per pt 2019 under left chest. History of radiofrequency ablation procedure for cardiac arrhythmia Hx of appendectomy Hx of carpal tunnel repair R side Hx of tonsillectomy Olecranon bone spur s/p debridement on 07/27/2019. R elbow Partial Nephrectomy left side for renal cell cancer. Has yearly CT scan. 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 Social History Smoking/Tobacco Use Status: Current every day Tobacco Type: cigarettes Smoking risk assessment performed?: Yes Alcohol Intake: never Drug use: Never Substance use type: does not use Household members: spouse and children Housing: house Number of Children: 1 Pets and animals: Yes Pets and animals: cat(s) and dog(s) Current gender identity: male What is your relationship status?: Panel score (0-1 are the most socially isolated patients): 1 What type of physical activity do you participate in: none Seatbelt use: sometimes Do you feel safe at home: Yes Do you feel safe in your relationship?: Yes Meds Home Medications and Allergies Allergies Allergy/AdvReac Type Severity Reaction Status Date / Time atorvastatin calcium AdvReac Intermediate liver Verified 11/25/20 06:37 [From Lipitor] problems niacin AdvReac Mild flushing Verified 11/25/20 06:37 adhesive from monitor tabs Allergy Intermediate jones Uncoded 11/25/20 06:37 Home Medications Medication Instructions Recorded Confirmed Type lansoprazole [Prevacid SoluTab] 60 mg PO BID 06/18/13 11/25/20 History isosorbide mononitrate 180 mg PO DAILY 10/16/15 11/25/20 History Rosuvastatin Calcium 40 mg PO DAILY 05/09/18 11/25/20 History clopidogrel [Plavix] 75 mg PO DAILY 07/24/18 11/25/20 History carvedilol 3.125 mg tablet 6.25 mg PO BID tab 06/14/19 11/25/20 History amlodipine 10 mg tablet See Rx Instructions .ROUTE .COMPLEX 06/29/19 11/25/20 History sertraline 50 mg PO DAILY 07/06/19 11/25/20 History nitroglycerin [Nitrostat] 0.4 mg SUBLINGUAL Q5 MIN PRN X3 11/02/19 11/25/20 Rx PRN #0 tab hydrocodone 5 mg-acetaminophen 325 1 tab PO TID PRN 09/08/20 11/25/20 History mg tablet ranolazine 500 mg tablet,extended 500 mg PO BID 09/08/20 11/25/20 History release,12 hr rivaroxaban 20 mg tablet 20 mg PO DAILY 09/08/20 11/25/20 History bupropion HCl 150 mg 24 hr tablet, 300 mg PO DAILY 11/10/20 11/25/20 History extended release acetaminophen 1,000 mg PO Q6H PRN 11/25/20 11/25/20 History Exam Const General: cooperative, healthy appearing, comfortable and no acute distress Nutritional Appearance: average body habitus Orientation: alert, awake and oriented x3 Resp Effort & Inspection: normal respiratory effort Auscultation: clear to auscultation bilaterally Cardio Rate: regular rate Rhythm: regular rhythm Results Last Vital Signs Temp 36.5 C 11/25/20 06:48 Pulse 72 11/25/20 06:48 Resp 16 11/25/20 06:48 BP 132/83 11/25/20 06:48 Pulse Ox 97 11/25/20 06:48
[2020-11-25] MEDS: ceFAZolin 2 GM/50 ML BAG IVPB (07:28)
--- NOTE | 2020-11-25 07:30 | PDOC.DSDIS_ITS ---
Documented by User: MADELEINE Saravia 11/25/20 07:35 Discharge Plan Disposition Patient Disposition: HOME Condition: Good Discharge Details Reason For Visit: Bilateral Carpal Tunnel Syndrome Attending Provider: Hola Ortiz Primary Care Provider: Delonte Corral Home Meds and New Rx's Prescriptions: Continued Xarelto 20 mg tablet 20 mg PO DAILY RF: 0 ranolazine [Ranexa] 500 mg tablet extended release 12 hr 500 mg PO BID RF: 0 hydrocodone-acetaminophen 5-325 mg tablet 1 tab PO TID PRNRF: 0 carvedilol 3.125 mg tablet 6.25 mg PO BID RF: 0 sertraline 50 mg Tablet 50 mg PO DAILY RF: 0 lansoprazole [Prevacid SoluTab] 30 MG tablet,disintegrat, delay rel 60 mg PO BID RF: 0 isosorbide mononitrate 120 MG tablet extended release 24 hr 180 mg PO DAILY RF: 0 nitroglycerin [Nitrostat] 0.4 mg Tablet, Sublingual 0.4 mg sublingual Q5 MIN PRN X3 PRN (Reason: chest pain) Qty: 0 RF: 0 acetaminophen 500 mg tablet 1,000 mg PO Q6H PRN (Reason: pain) RF: 0 Rosuvastatin Calcium 40 MG tablet 40 mg PO DAILY RF: 0 clopidogrel [Plavix] 75 mg Tablet 75 mg PO DAILY RF: 0 amlodipine 10 mg tablet See Rx Instructions .ROUTE .COMPLEX RF: 0 bupropion HCl 150 mg tablet extended release 24 hr 300 mg PO DAILY RF: 0 Discharge Instructions Additional Instructions: Carpal Tunnel Decompression Discharge Instructions Activity: Gentle motion of the hand, wrist, and fingers is okay and encouraged after the first few days, but no repetitive activites nor heavy lifting. You may apply ice. Medications: - Continue with home Tylenol as prescribed. - Continue with home Hydrocodone for breakthrough pain. Dressings: - The initial surgical dressing should stay in place for 3 days. It may then be removed and kept clean and dry. You should cover with a light gauze dressing. - You may shower after 3 days and get the wound wet. Follow-up: 10 days Stand Alone Forms: Anesthesia Discharge Inst., Diana Rodriguez Tunnel Release, DSU Post op Instructions, Rosa Juarez (DSU) Referrals: Hola Ortiz MD [ [facility] STAFF PHYSICIAN] - Activity:: Activity as Tolerated Remove Dressings/Wound Care:: 72 hours Shower/Bathe:: 72 hours Diet:: As Tolerated Discharge Orders Discharge Orders: Discharge Order (Routine); Ordered 11/25/20 Ordered By: Hola Ortiz DS: Diagnosis Discharge Diagnosis (1) Bilateral carpal tunnel syndrome: Status: Acute Documented by User: Hola Ortiz MD 11/25/20 09:37 Discharge Plan Disposition Patient Disposition: HOME Condition: Good Discharge Details Reason For Visit: Bilateral Carpal Tunnel Syndrome Attending Provider: Hola Ortiz Primary Care Provider: Delonte Corral [place] Meds and New Rx's Prescriptions: Continued Xarelto 20 mg tablet 20 mg PO DAILY RF: 0 ranolazine [Ranexa] 500 mg tablet extended release 12 hr 500 mg PO BID RF: 0 hydrocodone-acetaminophen 5-325 mg tablet 1 tab PO TID PRNRF: 0 carvedilol 3.125 mg tablet 6.25 mg PO BID RF: 0 sertraline 50 mg Tablet 50 mg PO DAILY RF: 0 lansoprazole [Prevacid SoluTab] 30 MG tablet,disintegrat, delay rel 60 mg PO BID RF: 0 isosorbide mononitrate 120 MG tablet extended release 24 hr 180 mg PO DAILY RF: 0 nitroglycerin [Nitrostat] 0.4 mg Tablet, Sublingual 0.4 mg sublingual Q5 MIN PRN X3 PRN (Reason: chest pain) Qty: 0 RF: 0 acetaminophen 500 mg tablet 1,000 mg PO Q6H PRN (Reason: pain) RF: 0 Rosuvastatin Calcium 40 MG tablet 40 mg PO DAILY RF: 0 clopidogrel [Plavix] 75 mg Tablet 75 mg PO DAILY RF: 0 amlodipine 10 mg tablet See Rx Instructions .ROUTE .COMPLEX RF: 0 bupropion HCl 150 mg tablet extended release 24 hr 300 mg PO DAILY RF: 0 Discharge Instructions Additional Instructions: Carpal Tunnel Decompression Discharge Instructions Activity: Gentle motion of the hand, wrist, and fingers is okay and encouraged after the first few days, but no repetitive activites nor heavy lifting. You may apply ice. Medications: - Continue with home Tylenol as prescribed. - Continue with home Hydrocodone for breakthrough pain. Dressings: - The initial surgical dressing should stay in place for 3 days. It may then be removed and kept clean and dry. You should cover with a light gauze dressing. - You may shower after 3 days and get the wound wet. Follow-up: 10 days Stand Alone Forms: Anesthesia Discharge InstYoshi, Diana Rodriguez Tunnel Release, DSU Post op Instructions, Rosa Juarez (DSU) Referrals: Hola Ortiz MD [ [facility] STAFF PHYSICIAN] - Activity:: Activity as Tolerated Remove Dressings/Wound Care:: 72 hours Shower/Bathe:: 72 hours Diet:: As Tolerated Discharge Orders Discharge Orders: Discharge Order (Routine); Ordered 11/25/20 Ordered By: Hola Ortiz
[2020-11-25] MEDS: Sodium Bicarbonate 50 MEQ/50 ML VIAL (07:54)
[2020-11-25 08:34] VITALS: BP 104/66; PULSE 63; RESP 18; TEMP 36.1; O2SAT 93
[2020-11-25 09:05] VITALS: BP 101/64; PULSE 61; RESP 18; TEMP 36.4; O2SAT 94
--- NOTE | 2020-11-25 22:15 | ROE_ITS ---
Date of service: 11/25/20 Time of Service: 08:04 Operative Note Operative Note DATE OF PROCEDURE: 11/25/20 PRE-OP DIAGNOSIS: Bilateral Carpal Tunnel Syndrome POST-OP DIAGNOSIS: same PROCEDURE: Bilateral Endoscopic Carpal Tunnel Release SURGEON: Hola Ortiz ANESTHESIA TYPE: General:No Airway Refer to Anesthesia Record ESTIMATED BLOOD LOSS: 0 PATHOLOGY: none sent TOURNIQUET TIME: 12 COMPLICATIONS: None Patient was transported to: same day Patient's condition: stable Indications: I have seen Adams in clinic for symptoms of bilateral carpal tunnel syndrome, recurrent on the right side. The numbness, tingling, and pain limited function. Clinical exam findings with nerve conduction tests confirmed the diagnosis of carpal tunnel syndrome. Nonoperative measures such as bracing, time, activity modifications had been tried but disability and pain persisted. I discussed carpal tunnel release with the patient. I reviewed the risks of the procedure to include, but not limited to, bleeding, infection, pain, stiffness, incomplete release, damage to nerves or vessels, persistent numbness, recurrence. Despite these risks, the patient elected to proceed. Findings: There was tightened carpal tunnel. This was dilated and released successfully with the endoscopic with increased space within the tunnel. The antebrachial fascia was released proximally freeing the median nerve at the wrist. Procedure Description: Adams was greeted in the preoperative holding area where the correct side was identified and marked. The consent was reviewed with the patient and signed. The history and physical was updated. All questions were answered. He was taken back to the operating room. The patient was placed into the supine position on the operating room table with the left arm on an arm board. A nonsterile tourniquet was placed high onto the arm. All bony prominences were well padded. Prophylactic antibiotics in the form of Cefazolin were administered. The left arm was then prepped with Chloraprep and draped in a standard fashion with stockinette and extremity drape. The right arm was then also prepped and draped in a similar fashion. A timeout to confirm correct identity, side and site, procedure, allergies, anesthesia, and medical concerns was performed. The surgical site was marked in the volar wrist creases in line with the radial border of the fourth ray. This area was anesthetized with approximately 6cc of 1% Lidocaine. The limb was then exsanguinated with an Esmarch and the Esmarch was kept wrapped around the forearm as a tourniquet. The skin was incised with a 15 blade, approximately 1cm. The skin only was cut and the deeper tissue was dissected bluntly with a tenotomy scissor, avoiding passing nerve and venous structures. The fascia was penetrated and opened bluntly. A two-prong skin hook was placed under this proximal fascial edge. A series of hamate finders were used to identify and dilate the carpal tunnel. Synovial elevator was used to free synovial attachments to the underside of the transverse carpal ligament. My thumb was kept in the palm to pb the distal extent of the carpal tunnel and correctly position the hand. The Microaire endoscope was inserted without difficulty and without resistance. Excellent visualization showed horizontally running fibers of the transverse carpal ligament (TCL). The distal extent of the TCL was visualized and the end of the scope palpated with the thumb. The blade was elevated and withdrawn from distal to proximal. The TCL was split into two flaps. The endoscope was reinserted to confirm complete release and any remnant ligament was incised. The scope was withdrawn and the proximal aspect of the carpal tunnel was grossly inspected and appeared release with the median nerve visible. The antebrachial fascia at the level of the wrist was then freed from the overlying skin and then the underlying median nerve with blunt dissection. This was transected longitudinally for about 3cm proximal to the wrist incision. The wound was then irrigated with easy flow of irrigant distally and proximally. The incision was closed with a single 4-0 Nylon suture. The tourniquet was released with good return of blood flow to the digits. The wound was dressed with Xeroform, Gauze, Kerlix. Attention was then turned to the right arm. The surgical site was marked in the volar wrist creases in line with the radial border of the fourth ray. This area was anesthetized with approximately 6cc of 1% Lidocaine. The limb was then exsanguinated with an Esmarch. The skin was incised with a 15 blade, appro ximately 1cm. The skin only was cut and the deeper tissue was dissected bluntly with a tenotomy scissor, avoiding passing nerve and venous structures. The fascia was penetrated and opened bluntly. A two-prong skin hook was placed under this proximal fascial edge. A series of hamate finders were used to identify and dilate the carpal tunnel. Synovial elevator was used to free synovial attachments to the underside of the transverse carpal ligament. My thumb was kept in the palm to pb the distal extent of the carpal tunnel and correctly position the hand. The Microaire endoscope was inserted without difficulty and without resistance. Excellent visualization showed horizontally running fibers of the transverse carpal ligament (TCL). The distal extent of the TCL was visualized and the end of the scope palpated with the thumb. The blade was elevated and withdrawn from distal to proximal. The TCL was split into two flaps. The endoscope was reinserted to confirm complete release and any remnant ligament was incised. The scope was withdrawn and the proximal aspect of the carpal tunnel was grossly inspected and appeared release with the median nerve visible. The antebrachial fascia at the level of the wrist was then freed from the overlying skin and then the underlying median nerve with blunt dissection. This was transected longitudinally for about 3cm proximal to the wrist incision. The wound was then irrigated with easy flow of irrigant distally and proximally. The incision was closed with a single 4-0 Nylon suture. The tourniquet was deflated with the initial dressing and held with some pressure. Blood flow returned easily to all digits with capillary refill less than 2 seconds. The wound was dressed with Xeroform, Gauze, Kerlix and Carlitos. An CARLITOS wrap was applied to the left arm. The patient tolerated the procedure well and was returned to the Same Day Surgery area in a stable condition suffering no known complication.
== END 2020-11-25 10:00 | disposition home or self-care (01) ==
PROVIDERS: PCP Internal Medicine; Visit Provider Student in an Organized Health Care Education/Training Program
PROC: 01N54ZZ Release Median Nerve, Percutaneous Endoscopic Approach (ICD-10-PCS; CPT 29848; principal; 2020-11-25 07:30)
DX: G56.03 Carpal tunnel syndrome, bilateral upper limbs (principal)
CPT/HCPCS: 29848; NC; J0690; J2001

== ENCOUNTER → 2020-12-05 09:45 | Outpatient (BNVA) | payer OTHER, SELFPAY | PROVIDERS: PCP Internal Medicine; Referring Provider Internal Medicine; Visit Provider Physician Assistant | DX: Z47.89 Encounter for other orthopedic aftercare (principal); G56.03 Carpal tunnel syndrome, bilateral upper limbs ==

== ENCOUNTER 2021-01-14 10:49 | Emergency (ER) | payer OTHER, SELFPAY ==
[2021-01-14] VITALS (23 sets, daily range): BP systolic 108–121; BP diastolic 72–82; PULSE 57–73; RESP 11–21; TEMP 36.6; O2SAT 91–96
--- NOTE | 2021-01-14 10:45 | RT.EKG_ITS ---
APPROVED REPORT Exam: Resting ECG Patient Location: E HR:69 bpm ECG Measurements Heart Rate 69 AXIS CA 159 P 42 QRSd 92 QRS -4 QT 398 T 42 QTc 427 Conclusion Sinus rhythm...normal P axis, V-rate 60- 99. NO STEMI. I have reviewed and interpreted ECG and agree with software generated interpretation.
[2021-01-14 11:23] LABS: Abs Immature Grans 0.04 10^3/uL (0.0-0.06); Absolute Basophil Count 0.07 10^3/uL (0.0-0.2); Absolute Eosinophil Count 0.16 10^3/uL (0.0-0.7); Absolute Lymphocyte Count 2.56 10^3/uL (1.2-3.4); Absolute Monocyte Count 0.86 10^3/uL (0.1-0.8); Absolute Neutrophil Count 6.63 10^3/uL (1.2-6.7); Basophils % 0.7; Eosinophils % 1.6; HCT 38.3 % (40.0-50.0); HGB 13.1 g/dL (13.5-17.5); Immature Grans % 0.4; Lymphocytes % 24.8; MCH 30.6 pg (27.0-33.0); MCHC 34.2 % (32.0-36.0); MCV 89.5 fL (80-95); Monocytes % 8.3; Neutrophils % 64.2; Nucleated RBC 0 %; Platelet Count 276 10^3/uL (130-400); RBC 4.28 10^6/uL (4.36-5.78); RDW 13.3 % (11.8-14.1); RDW-SD 44.1 fL; WBC 10.32 10^3/uL (4.4-10.8)
--- NOTE | 2021-01-14 11:30 | DI.CT_ITS ---
EXAM: CT THORAX CTA CLINICAL HISTORY: chest pain, r/o acute disease, dissection. TECHNIQUE: Imaging Protocol: Axial computed tomography images with coronal and sagittal reformatted images were created and reviewed CONTRAST MATERIAL: Intravenous: Omnipaque 350 Contrast volume:80 cc Oral: None COMPARISON: None FINDINGS: CHEST: LUNGS: There is symmetrical increased markings in the posterior aspect of both lower lobes dependent aspects, not associated with pleural effusions.. There is a 4 millimeter nodule in the lateral aspec t of the right middle lobe and another 3 millimeter nodule also seen in the lateral segment of the ri ght middle lobe.. There are no other distinct nodules. There is some peripheral fibrosis noted in b oth lung bates. There are no pleural effusions. MEDIASTINUM: There is no hilar nor mediastinal adenopathy. Visualized thyroid unremarkable.No axillar y adenopathy. CARDIAC: Heart size upper normal. There is no pericardial effusion. The caliber of the thoracic aor ta is within normal limits. No evidence of aortic dissection. AORTA: Caliber of the thoracic aorta is within normal limits.There is no evidence of aortic dissectio n. Lowermost images this study include the upper abdominal aorta which exhibits upper normal diameter wi th some atherosclerotic disease. Please note the entire abdominal aorta is not included and therefor e cannot exclude abdominal aortic aneurysm. Osseous: No significant osseous lesions. IMPRESSION: 1. No evidence of thoracic aortic dissection. The diameter of the ascending thoracic aorta is within normal limits.. Also no central pulmonary emboli. Peripheral pulmonary arteries are not well opaci fied. 2. Two small nodules in the right middle lobe measuring 4 and 3 millimeters. Also increased markings in the dependent aspect of both lower lobes, symmetrical in appearance. No pleural effusions. 3. No intrathoracic adenopathy evident. RADIATION DOSE DELIVERED: 649.75mGy.cm Total DLP DATA REPOSITORY: All CT scans at this facility are submitted to the National Radiology Data Registry (NRDR) Dose Index Registry (DIR) with the [employer] ([employer]). RADIATION OPTIMIZATION: All CT scans at this facility use at least one of these dose optimization te chniques: automated exposure control; mA and/or kV adjustment per patient size (includes targeted exa ms where dose is matched to clinical indication); or iterative reconstruction.
--- NOTE | 2021-01-14 11:30 | DI.CT_ITS ---
EXAM: CT BRAIN NECK CTA CLINICAL HISTORY: posterior headache, dizziness, r/o acute cva. TECHNIQUE: Imaging Protocol: Axial CT angiography was performed with multi-slice acquisition and mu lti-planar and/or 3D reconstructions. CONTRAST MATERIAL: Intravenous: Omnipaque 350 Contrast volume:structured data in ml COMPARISON: CT CT ABDOMEN PELVIS W from 10/13/2020 FINDINGS: CTA Neck W: Aortic arch anatomy: The aortic arch anatomy is conventional. Anterior circulation: Both common carotid arteries are patent without significant stenosis at their origins and both vessel s ascend with normal luminal diameters. There is mild plaque noted at both carotid bifurcations and proximal ICAs, less than 10 percent stenosis bilaterally. Above this level the internal carotid arben angelina are patent in the upper neck and skull base. Posterior circulation: Both vertebral arteries originated conventional fashion off of the subclavian arteries. Both vertebr al arteries ascend with approximately equal luminal diameters within the foramen transversarium and b oth contribute to the formation of the spine vertebral artery at the skull base. CTA Brain W: Anterior circulation: Both internal carotid arteries are patent in the skull base-carotid canals. Some mural calcification is noted within the intracavernous internal carotid arteries. Supraclinoid aspect of these vessels are patent and continuous with patent bilateral middle cerebral arteries. There are no aneurysms in the middle cerebral arteries. Both A1 segments are patent as are both anterior cerebral arteries. T here is no evidence of aneurysm at the level of the anterior communicating artery nor elsewhere in th e [id number]. Posterior circulation: The basilar artery ascends in the midline. Distally it gives off bilateral superior cerebellar arter ies and above this level terminates as patent right posterior cerebral artery. The left posterior ce rebral artery is fed by posterior communicating artery on the left side of the [id number]. The re is no evidence of aneurysm of the tip of the basilar artery. CT BRAIN: There is no evidence of intracranial hemorrhage, mass effect, or shift of midline structures. There are no extra-axial fluid collections. Ventricles are not enlarged or shifted and there is no blood w ithin the ventricular system nor within the basal cisterns. There are no ring enhancing lesions in t he brain and no abnormal meningeal enhancement. IMPRESSION: 1. Mild atherosclerotic disease at both carotid bifurcations proximal ICAs, approximately 10 percent stenosis bilaterally. No tight stenosis evident. 2. Both vertebral arteries are patent. 3. No acute intracranial findings. RADIATION DOSE DELIVERED: 2,351.76mGy.cm Total DLP DATA REPOSITORY: All CT scans at this facility are submitted to the National Radiology Data Registry (NRDR) Dose Index Registry (DIR) with the [employer] (ACR). RADIATION OPTIMIZATION: All CT scans at this facility use at least one of these dose optimization te chniques: automated exposure control; mA and/or kV adjustment per patient size (includes targeted exa ms where dose is matched to clinical indication); or iterative reconstruction.
--- NOTE | 2021-01-14 11:30 | DI.US_ITS ---
EXAM: US LOWER EXTREMITY VENOUS LT CLINICAL HISTORY: L calf pain, r/o dvt TECHNIQUE: Grayscale, color, and doppler imaging of the deep venous system of the left lower extremi ty was performed. COMPARISON: US US SCROTUM from 11/06/2019 FINDINGS: There is no evidence of intraluminal thrombus and there is normal compression and augmentation demons trated within the common femoral vein, femoral vein, and popliteal vein. In the ipsilateral calf the interrogated veins also exhibit normal compression/ augmentation properti es. The ipsilateral saphenofemoral junction is patent. Greater saphenous vein is negative for intraluminal thrombus. IMPRESSION: 1. No evidence of DVT in the left lower extremity. 2. DATA REPOSITORY:
[2021-01-14 11:38] LABS: INR 1.4 (0.9-1.1); PTT Activated 41.2 sec (21.0-27.5)
[2021-01-14 11:44] LABS: ALT 23 U/L (16-63); AST 15 U/L (15-37); Albumin 3.5 g/dL (3.4-5.0); Alkaline Phosphatase 81 U/L (46-116); Anion Gap 9.3 mmol/L (3-11); BUN 21 mg/dL (7-18); Bilirubin, Total 0.4 mg/dL (0.2-1.0); CO2 25.7 mmol/L (21.0-32.0); CREATININE 1.1 mg/dL (0.70-1.30); Calcium 9.1 mg/dL (8.5-10.1); Chloride 103 mmol/L (98-107); Glucose 86 mg/dL (74-106); Magnesium 1.5 mg/dL (1.8-2.4); Sodium 138 mmol/L (136-145); Total Protein 7.3 g/dL (6.4-8.2)
[2021-01-14 11:45] LABS: Troponin I < 0.05 ng/mL (<0.06)
--- NOTE | 2021-01-14 11:48 | ED.GENADUL_ITS ---
Discharge Plan Disposition Patient Disposition: HOME Condition: Improving Discharge Details Clinical Impression: Dizziness, Chest pain, Headache Primary Care Provider: Delonte Corral ED Provider: Beata Monroe Home Meds and New Rx's Prescriptions: Continued Xarelto 20 mg tablet 20 mg PO DAILY RF: 0 ranolazine [Ranexa] 500 mg tablet extended release 12 hr 500 mg PO BID RF: 0 hydrocodone-acetaminophen 5-325 mg tablet 1 tab PO TID PRNRF: 0 carvedilol 3.125 mg tablet 6.25 mg PO BID RF: 0 sertraline 50 mg Tablet 50 mg PO DAILY RF: 0 lansoprazole [Prevacid SoluTab] 30 MG tablet,disintegrat, delay rel 60 mg PO BID RF: 0 isosorbide mononitrate 120 MG tablet extended release 24 hr 180 mg PO DAILY RF: 0 nitroglycerin [Nitrostat] 0.4 mg Tablet, Sublingual 0.4 mg sublingual Q5 MIN PRN X3 PRN (Reason: chest pain) Qty: 0 RF: 0 acetaminophen 500 mg tablet 1,000 mg PO Q6H PRN (Reason: pain) RF: 0 Rosuvastatin Calcium 40 MG tablet 40 mg PO DAILY RF: 0 clopidogrel [Plavix] 75 mg Tablet 75 mg PO DAILY RF: 0 amlodipine 10 mg tablet 10 mg PO DAILY RF: 0 bupropion HCl 150 mg tablet extended release 24 hr 300 mg PO DAILY RF: 0 Discharge Instructions Instructions: Chest Pain (ED), Dizziness (ED), General Headache (ED) Additional Instructions: Drink plenty of fluids and get plenty of rest. Take Tylenol as needed and directed for pain Follow-up with your primary care doctor in 1 week. Return to the emergency department with any worsening or new concerning symptoms. Discharge Data Discharge Physician: Beata Monroe Medical Decision Making 55-year-old male with a history of coronary artery disease with 12 coronary artery stent, atrial fibrillation on Xarelto presents with 3 days of nausea and fatigue status post his first Covid vaccine, left-sided intermittent chest pain for the past 4 days, a 30-minute episode of left calf pain yesterday, and a 1 minute episode of posterior headache and dizziness upon looking up today. Currently asymptomatic. EKG on arrival notes a rate of 69, sinus, no STEMI, nondiagnostic. Differential diagnosis includes vaccine side effects, adverse reaction to vaccine, dehydration, electrolyte abnormality, arrhythmia, CVA, ACS, etc. History and presentation does not appear consistent with PE or dissection or subarachnoid hemorrhage. Denies any thunderclap sensation and denies any headache at present. Considering patient's age and history, will obtain screening labs, left leg ultrasound, CTA head and neck, CT chest and give fluids, IV Tylenol and Zofran and reassess. Labs and imaging reviewed and unremarkable. Magnesium 1.5, will replete. Normal white blood cell count. Troponin negative. Imaging negative for acute findings. Repeat troponin negative. Repeat EKG unchanged. Patient reassessed and remains asymptomatic. Patient states he feels good to go home. Advised to follow up with the primary care doctor for re-evaluation. Usual and customary return precautions given prior to discharge. Medical Records Medical records reviewed: Yes I reviewed the patient's medical records. Imaging Data Radiologic Study: Radiologist's impression: CT BRAIN NECK CTA CLINICAL HISTORY: posterior headache, dizziness, r/o acute cva. TECHNIQUE: Imaging Protocol: Axial CT angiography was performed with multi- slice acquisition and multi-planar and/or 3D reconstructions. CONTRAST MATERIAL: Intravenous: Omnipaque 350 Contrast volume:structured data in ml COMPARISON: CT CT ABDOMEN PELVIS W from 10/13/2020 FINDINGS: CTA Neck W: Aortic arch anatomy: The aortic arch anatomy is conventional. Anterior circulation: Both common carotid arteries are patent without significant stenosis at their origins and both vessels ascend with normal luminal diameters. There is mild plaque noted at both carotid bifurcations and proximal ICAs, less than 10 percent stenosis bilaterally. Above this level the internal carotid arteries are patent in the upper neck and skull base. Posterior circulation: Both vertebral arteries originated conventional fashion off of the subclavian arteries. Both vertebral arteries ascend with approximately equal luminal diameters within the foramen transversarium and both contribute to the formation of the spine vertebral artery at the skull base. CTA Brain W: Anterior circulation: Both internal carotid arteries are patent in the skull base-carotid canals. Some mural calcification is noted within the intracavernous internal carotid arteries. Supraclinoid aspect of these vessels are patent and continuous with patent bilateral middle cerebral arteries. There are no aneurysms in the middle cerebral arteries. Both A1 segments are patent as are both anterior cerebral arteries. There is no evidence of aneurysm at the level of the anterior communicating artery nor elsewhere in the [id number]. Posterior circulation: The basilar artery ascends in the midline. Distally it gives off bilateral superior cerebellar arteries and above this level terminates as patent right posterior cerebral artery. The left posterior cerebral artery is fed by posterior communicating artery on the left side of the [id number]. There is no evidence of aneurysm of the tip of the basilar artery. CT BRAIN: There is no evidence of intracranial hemorrhage, mass effect, or shift of midline structures. There are no extra-axial fluid collections. Ventricles are not enlarged or shifted and there is no blood within the ventricular system nor within the basal cisterns. There are no ring enhancing lesions in the brain and no abnormal meningeal enhancement. IMPRESSION: 1. Mild atherosclerotic disease at both carotid bifurcations proximal ICAs, approximately 10 percent stenosis bilaterally. No tight stenosis evident. 2. Both vertebral arteries are patent. 3. No acute intracranial findings. CT THORAX CTA CLINICAL HISTORY: chest pain, r/o acute disease, dissection. TECHNIQUE: Imaging Protocol: Axial computed tomography images with coronal and sagittal reformatted images were created and reviewed CONTRAST MATERIAL: Intravenous: Omnipaque 350 Contrast volume:80 cc Oral: None COMPARISON: None FINDINGS: CHEST: LUNGS: There is symmetrical increased markings in the posterior aspect of both lower lobes dependent aspects, not associated with pleural effusions.. There is a 4 millimeter nodule in the lateral aspect of the right middle lobe and another 3 millimeter nodule also seen in the lateral segment of the right middle lobe.. There are no other distinct nodules. There is some peripheral fibrosis noted in both lung bates. There are no pleural effusions. MEDIASTINUM: There is no hilar nor mediastinal adenopathy. Visualized thyroid unremarkable.No axillary adenopathy. CARDIAC: Heart size upper normal. There is no pericardial effusion. The caliber of the thoracic aorta is within normal limits. No evidence of aortic dissection. AORTA: Caliber of the thoracic aorta is within normal limits.There is no evide nce of aortic dissection. Lowermost images this study include the upper abdominal aorta which exhibits upper normal diameter with some atherosclerotic disease. Please note the entire abdominal aorta is not included and therefore cannot exclude abdominal aortic aneurysm. Osseous: No significant osseous lesions. IMPRESSION: 1. No evidence of thoracic aortic dissection. The diameter of the ascending thoracic aorta is within normal limits.. Also no central pulmonary emboli. Peripheral pulmonary arteries are not well opacified. 2. Two small nodules in the right middle lobe measuring 4 and 3 millimeters. Also increased markings in the dependent aspect of both lower lobes, symmetrical in appearance. No pleural effusions. 3. No intrathoracic adenopathy evident. US LOWER EXTREMITY VENOUS LT CLINICAL HISTORY: L calf pain, r/o dvt TECHNIQUE: Grayscale, color, and doppler imaging of the deep venous system of the left lower extremity was performed. COMPARISON: US US SCROTUM from 11/06/2019 FINDINGS: There is no evidence of intraluminal thrombus and there is normal compression and augmentation demonstrated within the common femoral vein, femoral vein, and popliteal vein. In the ipsilateral calf the interrogated veins also exhibit normal compression/ augmentation properties. The ipsilateral saphenofemoral junction is patent. Greater saphenous vein is negative for intraluminal thrombus. IMPRESSION: 1. No evidence of DVT in the left lower extremity. Lab Data Lab results reviewed: Yes I reviewed the patient's lab results. Labs: Laboratory Tests Range/Units 01/14/21 01/14/21 01/14/21 11:13 11:13 11:14 WBC (4.4-10.8) 10^3/uL 10.32 RBC (4.36-5.78) 10^6/uL 4.28 L Hgb (13.5-17.5) g/dL 13.1 L Hct (40.0-50.0) % 38.3 L MCV (80-95) fL 89.5 MCH (27.0-33.0) pg 30.6 MCHC (32.0-36.0) % 34.2 RDW (11.8-14.1) % 13.3 Plt Count (130-400) 10^3/uL 276 MPV (8.0-11.0) fL 9.0 Immature Gran % 0.4 Neutrophils % 64.2 Lymphocytes % 24.8 Monocytes % 8.3 Eosinophils % 1.6 Basophils % 0.7 Nucleated RBC % % 0 Absolute Neutrophils (1.2-6.7) 10^3/uL 6.63 Absolute Lymphocytes (1.2-3.4) 10^3/uL 2.56 Absolute Monocytes (0.1-0.8) 10^3/uL 0.86 H Absolute Eosinophils (0.0-0.7) 10^3/uL 0.16 Absolute Basophils (0.0-0.2) 10^3/uL 0.07 PT (9.3-11.0) sec 14.0 H INR (0.9-1.1) 1.4 H APTT (21.0-27.5) sec 41.2 H Sodium (136-145) mmol/L 138 Potassium (3.5-5.1) mmol/L 4.0 Chloride (98-107) mmol/L 103 Carbon Dioxide (21.0-32.0) mmol/L 25.7 Anion Gap (3-11) mmol/L 9.3 BUN (7-18) mg/dL 21 H Creatinine (0.70-1.30) mg/dL 1.1 Estimated GFR/1.73 m2 (mL/min/1.73m2) >= 60.00 Glucose (74-106) mg/dL 86 Calcium (8.5-10.1) mg/dL 9.1 Magnesium (1.8-2.4) mg/dL 1.5 L Total Bilirubin (0.2-1.0) mg/dL 0.4 AST (15-37) U/L 15 ALT (16-63) U/L 23 Alkaline Phosphatase (46-116) U/L 81 Troponin I (<0.06) ng/mL < 0.05 Total Protein (6.4-8.2) g/dL 7.3 Albumin (3.4-5.0) g/dL 3.5 Range/Units 01/14/21 01/14/21 14:12 15:15 WBC (4.4-10.8) 10^3/uL RBC (4.36-5.78) 10^6/uL Hgb (13.5-17.5) g/dL Hct (40.0-50.0) % MCV (80-95) fL MCH (27.0-33.0) pg MCHC (32.0-36.0) % RDW (11.8-14.1) % Plt Count (130-400) 10^3/uL MPV (8.0-11.0) fL Immature Gran % Neutrophils % Lymphocytes % Monocytes % Eosinophils % Basophils % Nucleated RBC % % Absolute Neutrophils (1.2-6.7) 10^3/uL Absolute Lymphocytes (1.2-3.4) 10^3/uL Absolute Monocytes (0.1-0.8) 10^3/uL Absolute Eosinophils (0.0-0.7) 10^3/uL Absolute Basophils (0.0-0.2) 10^3/uL PT (9.3-11.0) sec INR (0.9-1.1) APTT (21.0-27.5) sec Sodium (136-145) mmol/L Potassium (3.5-5.1) mmol/L Chloride (98-107) mmol/L Carbon Dioxide (21.0-32.0) mmol/L Anion Gap (3-11) mmol/L BUN (7-18) mg/dL Creatinine (0.70-1.30) mg/dL Estimated GFR/1.73 m2 (mL/min/1.73m2) Glucose (74-106) mg/dL Calcium (8.5-10.1) mg/dL Magnesium (1.8-2.4) mg/dL Total Bilirubin (0.2-1.0) mg/dL AST (15-37) U/L ALT (16-63) U/L Alkaline Phosphatase (46-116) U/L Troponin I (<0.06) ng/mL < 0.05 Cancelled Total Protein (6.4-8.2) g/dL Albumin (3.4-5.0) g/dL ECG Data Attestation: I personally reviewed and interpreted this ECG (s) as follows: Interpretation: #1 -- Rate of 69, sinus, no STEMI, nondiagnostic #2 -- Rate of 58, sinus, no STEMI, nondiagnostic HPI General Mode of arrival: ambulatory . Date/Time Provider Initiated Documentation: 01/14/21 11:01 . Limitations to Documentation: no limitations . Information obtained by: patient . HPI Narrative: Patient is a 55-year-old male with a history of atrial fibrillation on Xarelto, coronary artery disease with 12 coronary artery stents presents to the ED with a complaint of nausea and fa tigue for the past 2 days status post his first [place] Covid vaccine 2 days ago, a 30-minute episode of left calf pain yesterday that has resolved, and a brief 1 minute episode of sharp posterior headache and dizziness upon looking up when standing today. He also complained to the nurse about left-sided chest pain for the past 4 days that is sharp. When I inquired about this, patient states this is consistent with his usual chest pain that he has had for several years and states it is no worse than usual. He currently denies any chest pain at present. He denies any known fever, cough, abdominal pain, vomiting, diarrhea. Related Data Home Medications Medication Instructions Recorded Confirmed lansoprazole [Prevacid SoluTab] 60 mg PO BID 06/18/13 01/14/21 isosorbide mononitrate 180 mg PO DAILY 10/16/15 01/14/21 Rosuvastatin Calcium 40 mg PO DAILY 05/09/18 01/14/21 clopidogrel [Plavix] 75 mg PO DAILY 07/24/18 01/14/21 carvedilol 3.125 mg tablet 6.25 mg PO BID tab 06/14/19 01/14/21 amlodipine 10 mg tablet 10 mg PO DAILY 06/29/19 01/14/21 sertraline 50 mg PO DAILY 07/06/19 01/14/21 nitroglycerin [Nitrostat] 0.4 mg SUBLINGUAL Q5 MIN PRN X3 11/02/19 01/14/21 PRN #0 tab hydrocodone 5 mg-acetaminophen 325 1 tab PO TID PRN 09/08/20 01/14/21 mg tablet ranolazine 500 mg tablet,extended 500 mg PO BID 09/08/20 01/14/21 release,12 hr rivaroxaban 20 mg tablet 20 mg PO DAILY 09/08/20 01/14/21 bupropion HCl 150 mg 24 hr tablet, 300 mg PO DAILY 11/10/20 01/14/21 extended release acetaminophen 1,000 mg PO Q6H PRN 11/25/20 01/14/21 Previous Rx's Medication Instructions Recorded nitroglycerin [Nitrostat] 0.4 mg SUBLINGUAL Q5 MIN PRN X3 11/02/19 PRN #0 tab Allergies Allergy/AdvReac Type Severity Reaction Status Date / Time atorvastatin calcium AdvReac Intermediate liver Verified 01/14/21 11:03 [From Lipitor] problems niacin AdvReac Mild flushing Verified 01/14/21 11:03 adhesive from monitor tabs Allergy Intermediate jones Uncoded 01/14/21 11:03 General Stated Complaint: Chest Pain MARQUIS: 2 Review of Systems All systems reviewed & are unremarkable except as noted in HPI and below Constitutional Constitutional: Reports as per HPI, Denies chills, Denies fever(s) and Reports headache(s) Eyes Eyes: Denies blurry vision ENT Ears, Nose, Mouth, and Throat: Reports dizziness, Reports headache(s), Denies sore throat and Denies throat swelling Cardiovascular Cardiovascular: Reports chest pain and Denies dyspnea Respiratory Respiratory: Denies cough and Denies dyspnea Gastrointestinal Gastrointestinal: Denies abdominal pain, Denies diarrhea, Reports nausea and Denies vomiting Genitourinary Genitourinary: Denies hematuria and Denies dysuria Musculoskeletal Musculoskeletal: Denies back pain and Denies numbness Integumentary/Breasts Skin/Breast: Denies lesions and Denies rash Neurologic Neurologic: Reports dizziness, Reports headache(s), Denies localized weakness and Denies numbness Allergic/Immunologic Allergic/Immunologic: Denies throat swelling [facility] Medical History (Updated 01/14/21 @ 14:47 by Beata Monroe DO) Anemia Atrial fibrillation Back pain, chronic Chest pain Coronary artery disease Depression with anxiety Diverticulosis Duodenal ulcer Dysesthesia Dyslipidemia Dyspepsia Erectile disorder, acquired, generalized, severe Esophagitis Gastritis Hemiplegia History of kidney cancer Hx of adenomatous polyp of colon Inguinal hernia Ischemic stroke Lipoma of back Muscle wasting and atrophy, not elsewhere classified, other site Occipital headache Penile pain Pulmonary nodules Recurrent bilateral inguinal hernia Sleep apnea Spermatocele Tobacco use Trigger finger, right index finger Trigger finger, right middle finger Tubular adenoma of colon (08/03/17) Umbilical hernia Surgical History (Updated 12/05/20 @ 11:22 by MADELEINE Coto) Bilateral carpal tunnel syndrome S/P B/L ECTR: 11/25/2020 cardiac cath 2014, 9 stents over the years since 2002. Nov or Aug was last stent put in per pt. Colonoscopy - MAC (08/03/17) EGD - MAC (08/03/17) History of back surgery partial fusion History of loop recorder placed a couple months ago per pt 2019 under left chest. History of radiofrequency ablation procedure for cardiac arrhythmia Hx of appendectomy Hx of carpal tunnel repair R side Hx of tonsillectomy Olecranon bone spur s/p debridement on 07/27/2019. R elbow Partial Nephrectomy left side for renal cell cancer. Has yearly CT scan. 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 Social History Smoking/Tobacco Use Status: Current every day Tobacco Type: cigarettes Smoking risk assessment performed?: Yes Alcohol Intake: never Drug use: Never Substance use type: does not use Household members: spouse and children Housing: house Number of Children: 1 Pets and animals: Yes Pets and animals: cat(s) and dog(s) Current gender identity: male What is your relationship status?: Panel score (0-1 are the most socially isolated patients): 1 What type of physical activity do you participate in: none Seatbelt use: sometimes Do you feel safe at home: Yes Do you feel safe in your relationship?: Yes Exam Const General: cooperative and no acute distress HENMT Head: normal to inspection Face and sinus: normal facial exam Eyes General: appearance normal, both eyes and all related structures EOM: EOM intact bilaterally Neck Neck: normal visual inspection and No submandibular swelling Lymphatic: no lymphadenopathy noted Chest Chest: normal inspection of the chest and no tenderness Resp Effort & Inspection: normal respiratory effort and able to speak in complete sentences Auscultation: clear to auscultation bilaterally Cardio Rate: regular rate Rhythm: regular rhythm GI Inspection: normal to inspection Palpation: soft, not firm, not rigid and nontender Auscultation: normal bowel sounds Skin General skin exam: no rashes or lesions noted Neuro General: patient alert, patient awake and patient oriented x3 Cognition: normal cognition Speech: speech normal Motor: muscle tone normal throughout Sensory Exam: no sensory deficits noted Extrem General: normal to inspection, full ROM, capillary refill normal, no calf tenderness bilaterally and no edema Other: Proximal right arm at vaccine site no evidence of cellulitis Psych Appearance: grossly normal Mental Status: mental status grossly normal Speech and Movement: speech and movement normal Affect: normal affect Course Vital Signs Vital signs: Vital Signs Temperature 97.9 F 01/14/21 11:00 Pulse 73 01/14/21 11:00 Respiratory Rate 14 01/14/21 11:00 Blood Pressure 121/75 01/14/21 11:00 Pulse Oximetry 96 01/14/21 11:00 Temperature 97.9 F 01/14/21 11:00 Temperature Source Skin 01/14/21 11:00 Pulse 66 01/14/21 11:31 Pulse 67 01/14/21 11:40 Respiratory Rate 17 01/14/21 11:40 Respiratory Effort 01/14/21 11:24 Respiratory Depth Normal 01/14/21 11:24 Respiratory Pattern Normal 01/14/21 11:24 Blood Pressure 114/81 01/14/21 11:31 Blood Pressure Mean 88 01/14/21 11:31 Blood Pressure Position Sitting 01/14/21 11:00 Pulse Oximetry 93 01/14/21 11:40 Oxygen Delivery Method Room Air 01/14/21 11:00 Oxygen Flow Rate 0 01/14/21 11:00 Lab/Test Results Lab/Test Results: Laboratory Tests Range/Units 01/14/21 01/14/21 01/14/21 11:13 11:13 11:14 WBC (4.4-10.8) 10^3/uL 10.32 RBC (4.36-5.78) 10^6/uL 4.28 L Hgb (13.5-17.5) g/dL 13.1 L Hct (40.0-50.0) % 38.3 L MCV (80-95) fL 89.5 MCH (27.0-33.0) pg 30.6 MCHC (32.0-36.0) % 34.2 RDW (11.8-14.1) % 13.3 Plt Count (130-400) 10^3/uL 276 MPV (8.0-11.0) fL 9.0 Immature Gran % 0.4 Neutrophils % 64.2 Lymphocytes % 24.8 Monocytes % 8.3 Eosinophils % 1.6 Basophils % 0.7 Nucleated RBC % % 0 Absolute Neutrophils (1.2-6.7) 10^3/uL 6.63 Absolute Lymphocytes (1.2-3.4) 10^3/uL 2.56 Absolute Monocytes (0.1-0.8) 10^3/uL 0.86 H Absolute Eosinophils (0.0-0.7) 10^3/uL 0.16 Absolute Basophils (0.0-0.2) 10^3/uL 0.07 PT (9.3-11.0) sec 14.0 H INR (0.9-1.1) 1.4 H APTT (21.0-27.5) sec 41.2 H Sodium (136-145) mmol/L 138 Potassium (3.5-5.1) mmol/L 4.0 Chloride (98-107) mmol/L 103 Carbon Dioxide (21.0-32.0) mmol/L 25.7 Anion Gap (3-11) mmol/L 9.3 BUN (7-18) mg/dL 21 H Creatinine (0.70-1.30) mg/dL 1.1 Estimated GFR/1.73 m2 (mL/min/1.73m2) >= 60.00 Glucose (74-106) mg/dL 86 Calcium (8.5-10.1) mg/dL 9.1 Magnesium (1.8-2.4) mg/dL 1.5 L Total Bilirubin (0.2-1.0) mg/dL 0.4 AST (15-37) U/L 15 ALT (16-63) U/L 23 Alkaline Phosphatase (46-116) U/L 81 Troponin I (<0.06) ng/mL < 0.05 Total Protein (6.4-8.2) g/dL 7.3 Albumin (3.4-5.0) g/dL 3.5
[2021-01-14] MEDS: Ondansetron 4 MG/2 ML VIAL IVP (12:07)
[2021-01-14] MEDS: Normal Saline 1,000 ML 1000 ML IV (13:32)
[2021-01-14] MEDS: ACETAMINOPHEN 1,000 MG/100 ML BTL 400 MG IVPB (13:33)
--- NOTE | 2021-01-14 13:45 | RT.EKG_ITS ---
APPROVED REPORT Exam: Resting ECG Patient Location: E HR:58 bpm ECG Measurements Heart Rate 58 AXIS NJ 166 P 48 QRSd 105 QRS 9 QT 447 T 39 QTc 440 Conclusion Sinus bradycardia...rate< 60 Probable lateral infarct, old...Q>35mS, abnormal ST-T, V5-6 I aVL. No STEMI. I have reviewed and interpreted ECG and agree with software generated interpretation.
[2021-01-14] MEDS: MAGNESIUM SULFATE 1 GM/100 ML BAG IVPB (14:18)
[2021-01-14 14:36] LABS: Troponin I < 0.05 ng/mL (<0.06)
== END 2021-01-14 15:38 | disposition home or self-care (01) ==
PROVIDERS: Emergency Provider Physician Assistant; PCP Internal Medicine
DX: R42 Dizziness and giddiness (principal); R07.89 Other chest pain; R51.9 Headache, unspecified
CPT/HCPCS: 70496; 70498; 71275; 80053; 93005; 96361; 96365; 96375; 99285; 83735; 84484; 85025; 85610; 85730; 93010; 93971; 99284; J0131; J2405; J3475

== ENCOUNTER → 2021-02-26 08:22 | Outpatient (BNVA) | payer OTHER, SELFPAY | PROVIDERS: PCP Internal Medicine; Referring Provider Internal Medicine; Visit Provider Student in an Organized Health Care Education/Training Program | DX: M65.342 Trigger finger, left ring finger (principal); M65.312 Trigger thumb, left thumb | CPT/HCPCS: 99213 ==

== ENCOUNTER 2021-03-03 08:48 | Day surgery (SDC) | payer OTHER, SELFPAY ==
--- NOTE | 2021-03-03 07:24 | PDOC.DSDIS_ITS ---
Discharge Plan Disposition Patient Disposition: HOME Condition: Good Discharge Details Reason For Visit: TRIGGER FINGER Attending Provider: Hola Ortiz Primary Care Provider: Delonte Corral Meds and New Rx's Prescriptions: New hydrocodone-acetaminophen 5-325 mg tablet 1 tab PO Q6H PRNQty: 5 RF: 0 acetaminophen [Tylenol Extra Strength] 500 mg tablet 500 mg PO Q6H PRNQty: 90 RF: 0 ibuprofen 600 mg tablet 600 mg PO TID Qty: 90 RF: 0 Continued Xarelto 20 mg tablet 20 mg PO DAILY RF: 0 ranolazine [Ranexa] 500 mg tablet extended release 12 hr 500 mg PO BID RF: 0 hydrocodone-acetaminophen 5-325 mg tablet 1 tab PO TID PRNRF: 0 carvedilol 3.125 mg tablet 6.25 mg PO BID RF: 0 sertraline 50 mg Tablet 50 mg PO DAILY RF: 0 lansoprazole [Prevacid SoluTab] 30 MG tablet,disintegrat, delay rel 60 mg PO BID RF: 0 isosorbide mononitrate 120 MG tablet extended release 24 hr 180 mg PO DAILY RF: 0 nitroglycerin [Nitrostat] 0.4 mg Tablet, Sublingual 0.4 mg sublingual Q5 MIN PRN X3 PRN (Reason: chest pain) Qty: 0 RF: 0 acetaminophen 500 mg tablet 1,000 mg PO Q6H PRN (Reason: pain) RF: 0 Rosuvastatin Calcium 40 MG tablet 40 mg PO DAILY RF: 0 clopidogrel [Plavix] 75 mg Tablet 75 mg PO DAILY RF: 0 amlodipine 10 mg tablet 10 mg PO DAILY RF: 0 bupropion HCl 150 mg tablet extended release 24 hr 300 mg PO DAILY RF: 0 Discharge Instructions Stand Alone Forms: Diana Matias Finger Release Referrals: Hola Ortiz MD [ [facility] STAFF PHYSICIAN] - Activity:: Activity as Tolerated Remove Dressings/Wound Care:: 48 hours Shower/Bathe:: 48 hours Diet:: As Tolerated Discharge Orders Discharge Orders: Discharge Order (Routine); Ordered 03/03/21 Ordered By: Alesia Ordonez DS: Diagnosis Discharge Diagnosis (1) Trigger thumb, left thumb: Status: Acute (2) Trigger finger, left ring finger: Status: Acute
[2021-03-03 09:08] VITALS: BP 130/86; PULSE 73; RESP 16; TEMP 36.1; O2SAT 98
[2021-03-03] MEDS: Sodium Bicarbonate 50 MEQ/50 ML VIAL (10:06)
[2021-03-03 10:20] VITALS: BP 111/72; PULSE 63; RESP 18; TEMP 36.6; O2SAT 98
--- NOTE | 2021-03-03 12:26 | W.PM.OP ---
Date of service: 03/03/21 Time of Service: 10:26 Operative Note Operative Note DATE OF PROCEDURE: 03/03/21 PRE-OP DIAGNOSIS: Left Ring Finger Trigger Finger POST-OP DIAGNOSIS: same PROCEDURE: Trigger Finger Release - Left Ring Finger SURGEON: Hola Ortiz ANESTHESIA TYPE: Local By Surgeon Refer to Anesthesia Record ESTIMATED BLOOD LOSS: 0 PATHOLOGY: none sent COMPLICATIONS: None Patient was transported to: same day Patient's condition: stable Indications: I have seen Adams in clinic for symptoms of a trigger finger. The catching, clicking, locking, and pain limited function. The diagnosis of trigger finger was evident. The symptoms had not responded to conservative measures. He had previous success with other trigger finger release and desired this to be released as well. I discussed trigger finger release with the patient. I reviewed the risks of the procedure to include, but not limited to, bleeding, infection, pain, stiffness, incomplete release, damage to nerves or vessels, continued catching, recurrence. Despite these risks, the patient elected to proceed. Findings: There was a tightened A1 shukri which was released. The flexor tendons were inspected and the patient was able to move the finger without any catching, clicking, or locking. Procedure Description: Adams was greeted in the preoperative holding area where the correct side was identified and marked. The consent was reviewed with the patient and signed. All questions were answered. He was taken back to the operating room. The patient was placed into the supine position on the operating room table with the left arm on an arm board. All bony prominences were well padded. No prophylactic antibiotics were administered since this was a clean, elective hand surgical case. The left arm was then prepped with Chloraprep and draped in a standard fashion with stockinette and extremity drape. A timeout to confirm correct identity, side and site, procedure, allergies, anesthesia, and medical concerns was performed. The surgical site was marked as a longitudinal incision directly over the A1 shukri of the involved digit. This was confirmed with palpation during finger flexion. This area, overlying the metacarpal head, was then anesthetized with 1% Lidocaine. The patient tolerated this well and once the anesthetic had setup, the procedure began. A longitudinal incision was made through skin only, approximately 1cm. The deep tissues were dissected bluntly. Once the A1 shukri and flexor tendons were identified the soft tissue including neurovascular structures were retracted medially and laterally. There were no crossing structures over the A1 shukri. The proximal edge of the shukri was identified and the shukri was incised with tenotomy scissors. There was a release of the tendons once this was fully released. The tendons were then removed from the wound and inspected. Excess synovium was resected. There was some tendon fraying as well which was removed. The tendons were then returned and the patient was asked to move the finger into deep flexion and back to extension. There was no recreation of the pre-operative symptoms. The hand was then once more inspected for any A0 shukri or area of possible constriction. The wound was then irrigated and the skin was closed with a 4-0 Nylon. This was dressed with gauze and a Conform dressing. The patient tolerated the procedure well and was returned to the Same Day Surgery area in a stable condition suffering no known complication.
== END 2021-03-03 10:33 | disposition home or self-care (01) ==
LOC: SUR 08:49
PROVIDERS: PCP Internal Medicine; Visit Provider Student in an Organized Health Care Education/Training Program
PROC: (CPT 26055; principal; 2021-03-03 09:45)
DX: M65.342 Trigger finger, left ring finger (principal)
CPT/HCPCS: 26055

== ENCOUNTER → 2021-03-12 07:43 | Outpatient (BNVA) | payer OTHER, SELFPAY | PROVIDERS: PCP Internal Medicine; Referring Provider Internal Medicine; Visit Provider Student in an Organized Health Care Education/Training Program | DX: Z47.89 Encounter for other orthopedic aftercare (principal) ==

== ENCOUNTER 2021-03-19 10:42 | Outpatient (REF) | payer OTHER, SELFPAY ==
[2021-03-19 13:15] LABS: Abs Immature Grans 0.03 10^3/uL (0.0-0.06); Absolute Basophil Count 0.04 10^3/uL (0.0-0.2); Absolute Eosinophil Count 0.15 10^3/uL (0.0-0.7); Absolute Lymphocyte Count 2.33 10^3/uL (1.2-3.4); Absolute Monocyte Count 0.76 10^3/uL (0.1-0.8); Absolute Neutrophil Count 4.99 10^3/uL (1.2-6.7); Basophils % 0.5; Eosinophils % 1.8; HCT 39.5 % (40.0-50.0); HGB 13.2 g/dL (13.5-17.5); Immature Grans % 0.4; Lymphocytes % 28.1; MCH 30.6 pg (27.0-33.0); MCHC 33.4 % (32.0-36.0); MCV 91.4 fL (80-95); MPV 9.8 fL (8.0-11.0); Monocytes % 9.2; Nucleated RBC 0 %; Platelet Count 283 10^3/uL (130-400); RBC 4.32 10^6/uL (4.36-5.78); RDW 13.7 % (11.8-14.1); RDW-SD 46.5 fL
[2021-03-19 13:29] LABS: ALT 21 U/L (16-63); AST 16 U/L (15-37); Albumin 3.6 g/dL (3.4-5.0); Alkaline Phosphatase 80 U/L (46-116); BUN 17 mg/dL (7-18); Bilirubin, Total 0.3 mg/dL (0.2-1.0); Calcium 9.1 mg/dL (8.5-10.1); Chloride 104 mmol/L (98-107); Glucose 92 mg/dL (74-106); Potassium 4.3 mmol/L (3.5-5.1); Sodium 140 mmol/L (136-145); Total Protein 6.9 g/dL (6.4-8.2)
== END 2021-03-19 10:43 | disposition home or self-care (01) ==
LOC: NCHCN 10:42
PROVIDERS: PCP Internal Medicine; Visit Provider Internal Medicine
DX: R63.4 Abnormal weight loss (principal); Z85.528 Personal history of other malignant neoplasm of kidney; Z51.81 Encounter for therapeutic drug level monitoring
CPT/HCPCS: 80053; 85025

== ENCOUNTER → 2021-04-07 01:54 | Outpatient (CLI) | payer OTHER, SELFPAY ==
--- NOTE | 2021-04-07 | DI.CT_ITS ---
Exam(s) CT ABDOMEN PELVIS W EXAM: CT ABDOMEN PELVIS W CLINICAL HISTORY: H/O KIDNEY CA,[id number]. TECHNIQUE: Imaging Protocol: Axial computed tomography images with coronal and sagittal reformatted images were created and reviewed CONTRAST MATERIAL: Intravenous: Omnipaque 350 Contrast volume:100 ml Oral: yes / COMPARISON: CT CT ABDOMEN PELVIS W from 10/13/[address] ABDOMEN PELVIS W from 10/13/[address] THORAX CTA from 01/14/2021 FINDINGS: ABDOMEN: Lung Bases: Dependent changes. Liver: Normal density. No measurable mass. Gallbladder and biliary tract: No radiodense calculus or dilation. Pancreas: Normal density, no abnormal calcifications or inflammatory process. Spleen: Normal. Kidneys: Postsurgical defect upper pole left kidney. No radiodense stones or obstructive uropathy. No masses seen. Adrenal glands: No masses seen. Abdominal Aorta: Abdominal portion non-dilated. Moderate atherosclerotic changes. PELVIS: Bladder: Nearly empty. Stable diffuse wall thickening. No calculi.No focal mass. Bowel: No obstruction or bowel wall thickening. Appendix normal.Diverticulosis greatest in sigmoid re gion. Wall thickening. No evidence of diverticulitis. Peritoneal cavity: No ascites, collection or mesenteric inflammatory response. Bones: Degenerative disc changes and scoliosis. No suspicious lesions. Reproductive organs: Within normal limits. Lymph nodes: Unremarkable. Impression: Postsurgical defect upper pole left kidney. No evidence of recurrence mass, adenopathy or metastatic disease. RADIATION DOSE DELIVERED: 2,123.72mGy.cm Total DLP 2,123.72mGy.cm Total DLP 2,123.72mGy.cm Total DLP DATA REPOSITORY: All CT scans at this facility are submitted to the National Radiology Data Registry (NRDR) Dose Index Registry (DIR) with the [employer] (A[employer]). RADIATION OPTIMIZATION: All CT scans at this facility use at least one of these dose optimization te chniques: automated exposure control; mA and/or kV adjustment per patient size (includes targeted exa ms where dose is matched to clinical indication); or iterative reconstruction.
[2021-04-07] MEDS: Omnipaque 350 MG/ML 50 ML BTL IJ (07:54)
[2021-04-07] MEDS: Omnipaque 350 MG/ML 100 ML BTL IJ (09:10)
[2021-04-07] MEDS: Normal Saline - Diluent 50 ML VIAL IV (09:10)
[2021-04-07] MEDS: Normal Saline Flush 10 ML SYR IVP (09:11)
== END ==
PROVIDERS: PCP Internal Medicine; Visit Provider Internal Medicine
DX: N99.89 Other postprocedural complications and disorders of genitourinary system (principal); Z85.528 Personal history of other malignant neoplasm of kidney
CPT/HCPCS: 74177; J3490; Q9967

== ENCOUNTER → 2021-05-04 07:53 | Outpatient (BNVA) | payer OTHER, SELFPAY | PROVIDERS: PCP Internal Medicine; Referring Provider Internal Medicine | DX: Z47.89 Encounter for other orthopedic aftercare (principal); M65.342 Trigger finger, left ring finger ==

== ENCOUNTER → 2021-06-04 11:02 | Outpatient (BNVA) | payer OTHER, SELFPAY | PROVIDERS: PCP Internal Medicine; Referring Provider Internal Medicine; Visit Provider Internal Medicine Cardiovascular Disease | DX: I25.10 Atherosclerotic heart disease of native coronary artery without angina pectoris (principal); R07.89 Other chest pain; F17.210 Nicotine dependence, cigarettes, uncomplicated; Z86.79 Personal history of other diseases of the circulatory system; Z98.890 Other specified postprocedural states | CPT/HCPCS: 99213 ==

== ENCOUNTER 2021-07-17 09:10 | Emergency (ER) | payer MEDICARE, SELFPAY ==
[2021-07-17 09:13] VITALS: BP 127/63; PULSE 75; RESP 16; TEMP 36.5; O2SAT 97
--- NOTE | 2021-07-17 09:26 | ED.GENADUL_ITS ---
Discharge Plan Disposition Patient Disposition: HOME Condition: Improving Discharge Details Clinical Impression: Laceration of finger of left hand Primary Care Provider: Delonte Corral ED Provider: Mik Christy Home Meds and New Rx's Prescriptions: Continued Xarelto 20 mg tablet 20 mg PO DAILY RF: 0 ranolazine [Ranexa] 500 mg tablet extended release 12 hr 500 mg PO BID RF: 0 carvedilol 3.125 mg tablet 6.25 mg PO BID RF: 0 sertraline 50 mg Tablet 50 mg PO DAILY RF: 0 lansoprazole [Prevacid SoluTab] 30 MG tablet,disintegrat, delay rel 60 mg PO BID RF: 0 isosorbide mononitrate 120 MG tablet extended release 24 hr 180 mg PO DAILY RF: 0 nitroglycerin [Nitrostat] 0.4 mg Tablet, Sublingual 0.4 mg sublingual Q5 MIN PRN X3 PRN (Reason: chest pain) Qty: 0 RF: 0 acetaminophen 500 mg tablet 1,000 mg PO Q6H PRN (Reason: pain) RF: 0 Rosuvastatin Calcium 40 MG tablet 40 mg PO DAILY RF: 0 clopidogrel [Plavix] 75 mg Tablet 75 mg PO DAILY RF: 0 amlodipine 10 mg tablet 10 mg PO DAILY RF: 0 bupropion HCl 150 mg tablet extended release 24 hr 300 mg PO DAILY RF: 0 hydrocodone-acetaminophen 5-325 mg tablet 1 tab PO Q6H PRNQty: 5 RF: 0 Discharge Instructions Instructions: Finger Laceration (ED) Additional Instructions: Leave the outer dressing in place 72 hours. Keep area dry and clean. Then leave bandages on another further 72 hours and then may remove. Return if you develop a fever, foul-smelling discharge, redness or swelling, or any other acute concerns. Medical Decision Making 55-year-old male who has chronic but stable mild problems. He is working in his rodriguez on his motorcycle 1 he could the distal volar portion of his left ring finger. He has a avulsion measuring approximately 1 x 0.5 cm that does not penetrate through the full depth of the dermis. There is no other injury and it is not amenable to suture repair. Repaired with tissue adhesive and dressing. Patient understands homecare. He will return for any acute concerns. HPI General Mode of arrival: ambulatory . Date/Time Provider Initiated Documentation: 07/17/21 09:11 . Limitations to Documentation: no limitations . Information obtained by: patient . History of Present Illness 55 year old M presents to the emergency department with the chief complaint of Left ring finger laceration at home, described as mild, Quality is described as dull, and is localized to the left and upper extremity. Patient reports no radiation. Patient started experiencing this minute(s) and it has been constant. No relieving factors improve symptom(s), No exacerbating factors reported . Patient notes no other symptoms.. Related Data Home Medications Medication Instructions Recorded Confirmed lansoprazole [Prevacid SoluTab] 60 mg PO BID 06/18/13 07/17/21 isosorbide mononitrate 180 mg PO DAILY 10/16/15 07/17/21 Rosuvastatin Calcium 40 mg PO DAILY 05/09/18 07/17/21 clopidogrel [Plavix] 75 mg PO DAILY 07/24/18 07/17/21 carvedilol 3.125 mg tablet 6.25 mg PO BID tab 06/14/19 07/17/21 amlodipine 10 mg tablet 10 mg PO DAILY 06/29/19 07/17/21 sertraline 50 mg PO DAILY 07/06/19 07/17/21 nitroglycerin [Nitrostat] 0.4 mg SUBLINGUAL Q5 MIN PRN X3 11/02/19 07/17/21 PRN #0 tab ranolazine 500 mg tablet,extended 500 mg PO BID 09/08/20 07/17/21 release,12 hr rivaroxaban 20 mg tablet 20 mg PO DAILY 09/08/20 07/17/21 bupropion HCl 150 mg 24 hr tablet, 300 mg PO DAILY 11/10/20 07/17/21 extended release acetaminophen 1,000 mg PO Q6H PRN 11/25/20 07/17/21 hydrocodone-acetaminophen 1 tab PO Q6H PRN #5 tab 03/03/21 07/17/21 Previous Rx's Medication Instructions Recorded nitroglycerin [Nitrostat] 0.4 mg SUBLINGUAL Q5 MIN PRN X3 11/02/19 PRN #0 tab hydrocodone-acetaminophen 1 tab PO Q6H PRN #5 tab 03/03/21 Allergies Allergy/AdvReac Type Severity Reaction Status Date / Time atorvastatin calcium AdvReac Intermediate liver Verified 07/17/21 09:15 [From Lipitor] problems niacin AdvReac Mild flushing Verified 07/17/21 09:15 adhesive from monitor tabs Allergy Intermediate jones Uncoded 07/17/21 09:15 General Stated Complaint: Laceration MARQUIS: 4 Review of Systems Narrative: He has recently been well. No chest pain. Tetanus is up-to-date. Otherwise well and 6 systems reviewed [facility] Medical History Anemia Atrial fibrillation Back pain, chronic Chest pain Coronary artery disease Depression with anxiety Diverticulosis Duodenal ulcer Dysesthesia Dyslipidemia Dyspepsia Erectile disorder, acquired, generalized, severe Esophagitis Gastritis Hemiplegia History of kidney cancer Hx of adenomatous polyp of colon Inguinal hernia Ischemic stroke Lipoma of back Muscle wasting and atrophy, not elsewhere classified, other site Occipital headache Penile pain Pulmonary nodules Recurrent bilateral inguinal hernia Sleep apnea Spermatocele Tobacco use Trigger finger, left ring finger s/p release 03/03/2021 Trigger finger, right index finger Trigger finger, right middle finger Trigger thumb, left thumb Tubular adenoma of colon (08/03/17) Umbilical hernia Surgical History Bilateral carpal tunnel syndrome S/P B/L ECTR: 11/25/2020 cardiac cath 2014, 9 stents over the years since 2002. Jul or Aug was last stent put in per pt. Colonoscopy - MAC (08/03/17) EGD - MAC (08/03/17) History of back surgery partial fusion History of loop recorder placed a couple months ago per pt 2019 under left chest. History of radiofrequency ablation procedure for cardiac arrhythmia Hx of appendectomy Hx of carpal tunnel repair R side Hx of tonsillectomy Olecranon bone spur s/p debridement on 07/27/2019. R elbow Partial Nephrectomy left side for renal cell cancer. Has yearly CT scan. 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 Social History Smoking/Tobacco Use Status: Current every day Tobacco Type: cigarettes Smoking packs per day: 10 Smoking cigarettes per day: 200.0 Years smoked: 46 Smoking pack-years: 460.00 Smoking risk assessment performed?: Yes Alcohol Intake: never Drug use: Never Substance use type: does not use Household members: spouse and children Housing: house Number of Children: 1 Pets and animals: Yes Pets and animals: cat(s) and dog(s) Current gender identity: male What is your relationship status?: Panel score (0-1 are the most socially isolated patients): 1 What type of physical activity do you participate in: none Seatbelt use: sometimes Do you feel safe at home: Yes Do you feel safe in your relationship?: Yes Exam Narrative Exam Narrative: GEN: awake, alert, oriented 3. Pleasant, well groomed, interactive. HEAD: Normocephalic, atraumatic EYES: PERRL, EOMI EXT: Full ROM, left ring finger with palmar skin avulsion measuring proxy 1 x 0.5 cm not through the full depth of dermis. Sensation intact. Neuro: Grossly normal neurologic exam, conversant, interactive. Psych: Speech fluent, thoughts congruent, affect normal Course Vital Signs Vital signs: Vital Signs Temperature 36.5 C 07/17/21 09:13 Pulse 75 07/17/21 09:13 Respiratory Rate 16 07/17/21 09:13 Blood Pressure 127/63 07/17/21 09:13 Pulse Oximetry 97 07/17/21 09:13 Temperature 36.5 C 07/17/21 09:13 Temperature Source Temporal Artery Scan 07/17/21 09:13 Pulse 75 07/17/21 09:13 Respiratory Rate 16 07/17/21 09:13 Blood Pressure 127/63 07/17/21 09:13 Blood Pressure Position Sitting 07/17/21 09:13 Pulse Oximetry 97 07/17/21 09:13 Oxygen Delivery Method Room Air 07/17/21 09:13 Oxygen Flow Rate 0 07/17/21 09:13 Pain Level 0 07/17/21 09:13
== END 2021-07-17 09:33 | disposition home or self-care (01) ==
PROVIDERS: Emergency Provider Emergency Medicine; PCP Internal Medicine
DX: S61.215A Laceration without foreign body of left ring finger without damage to nail, initial encounter (principal); W45.8XXA Other foreign body or object entering through skin, initial encounter
CPT/HCPCS: 12001

== ENCOUNTER → 2021-07-30 11:15 | Outpatient (BNVA) | payer MEDICARE, SELFPAY | PROVIDERS: PCP Internal Medicine; Referring Provider Internal Medicine; Visit Provider Internal Medicine Cardiovascular Disease | DX: I20.0 Unstable angina (principal); R07.9 Chest pain, unspecified; I48.0 Paroxysmal atrial fibrillation; F17.210 Nicotine dependence, cigarettes, uncomplicated | CPT/HCPCS: 99214 ==

== ENCOUNTER 2021-07-31 03:43 | Outpatient (CLI) | payer MEDICARE, SELFPAY ==
[2021-07-31 07:16] LABS: HCT 40.7 % (40.0-50.0); HGB 13.6 g/dL (13.5-17.5); MCHC 33.4 % (32.0-36.0); MCV 92.7 fL (80-95); Platelet Count 270 10^3/uL (130-400); RBC 4.39 10^6/uL (4.36-5.78); RDW 13.2 % (11.8-14.1); RDW-SD 45.5 fL; WBC 9.12 10^3/uL (4.4-10.8)
[2021-07-31 07:31] LABS: INR 1.1 (0.9-1.1); PTT Activated 36.5 sec (21.0-27.5); Prothrombin Time 11.1 sec (9.3-11.0)
[2021-07-31 08:31] LABS: BUN 15 mg/dL (7-18); CREATININE 1.1 mg/dL (0.70-1.30); Calcium 8.8 mg/dL (8.5-10.1); Chloride 104 mmol/L (98-107); Glucose 127 mg/dL (74-106); Sodium 141 mmol/L (136-145)
== END 2021-07-31 03:44 | disposition home or self-care (01) ==
LOC: LBO 03:43
PROVIDERS: PCP Internal Medicine; Visit Provider Internal Medicine Cardiovascular Disease
DX: I25.10 Atherosclerotic heart disease of native coronary artery without angina pectoris; C64.2 Malignant neoplasm of left kidney, except renal pelvis; I20.0 Unstable angina; R07.9 Chest pain, unspecified
CPT/HCPCS: 80048; 85027; 85610; 85730

== ENCOUNTER 2021-08-03 11:41 | Emergency (ER) | payer MEDICARE, SELFPAY ==
[2021-08-03] VITALS (15 sets, daily range): BP systolic 126–139; BP diastolic 72–83; PULSE 58–74; RESP 10–23; TEMP 36.6; O2SAT 92–97
--- NOTE | 2021-08-03 11:46 | RT.EKG_ITS ---
APPROVED REPORT Exam: Resting ECG Reason for Exam: abd pain Patient Location: E HR:73 bpm ECG Measurements Heart Rate 73 AXIS HI 145 P 41 QRSd 97 QRS 5 QT 387 T 53 QTc 427 Conclusion Sinus rhythm...normal P axis, V-rate 60- 99
--- NOTE | 2021-08-03 12:04 | ED.GENADUL_ITS ---
Discharge Plan Disposition Patient Disposition: HOME Condition: Improving Discharge Details Clinical Impression: Abdominal pain Primary Care Provider: Delonte Corral ED Provider: Mik Christy Home Meds and New Rx's Prescriptions: Continued Xarelto 20 mg tablet 20 mg PO DAILY RF: 0 ranolazine [Ranexa] 500 mg tablet extended release 12 hr 500 mg PO BID RF: 0 carvedilol 3.125 mg tablet 6.25 mg PO BID RF: 0 sertraline 50 mg Tablet 50 mg PO DAILY RF: 0 lansoprazole [Prevacid SoluTab] 30 MG tablet,disintegrat, delay rel 60 mg PO BID RF: 0 isosorbide mononitrate 120 MG tablet extended release 24 hr 180 mg PO DAILY RF: 0 nitroglycerin [Nitrostat] 0.4 mg Tablet, Sublingual 0.4 mg sublingual Q5 MIN PRN X3 PRN (Reason: chest pain) Qty: 0 RF: 0 acetaminophen 500 mg tablet 1,000 mg PO Q6H PRN (Reason: pain) RF: 0 Rosuvastatin Calcium 40 MG tablet 40 mg PO DAILY RF: 0 clopidogrel [Plavix] 75 mg Tablet 75 mg PO DAILY RF: 0 amlodipine 10 mg tablet 10 mg PO DAILY RF: 0 bupropion HCl 150 mg tablet extended release 24 hr 300 mg PO DAILY RF: 0 hydrocodone-acetaminophen 5-325 mg tablet 1 tab PO Q6H PRNQty: 5 RF: 0 Discharge Instructions Instructions: Abdominal Pain (ED) Additional Instructions: As we discussed, you would benefit from increased daily fiber in the diet. I recommend a bland diet. Continue your routine medications. Follow-up with cardiology as previously planned. Return to the emergency department for any acute concerns. Medical Decision Making 55-year-old male presents with lower abdominal pain over 2 weeks time. States it seems consistent with previous episodes of diverticulitis. He has had some intermittent loose stools but no fever or bloody stool. States he also has had some ongoing chronic intermittent chest pain for which his tree inspector is ordered an outpatient cardiac catheterization. Patient arrives to ER normotensive, afebrile, interactive and in no significant distress. He does demonstrate mild diffuse tenderness of his abdomen on palpation. Differential diagnosis includes colitis, diverticulitis, obstipation or constipation. Patient IV access established, screening labs obtained and given his significant cardiac history of both troponin and EKG obtained. Laboratories note white count 11, otherwise unremarkable CBC, chemistries with negative troponin and normal lipase. CT images note previously known diverticulosis, no evidence of inflammatory changes or other acute findings. Please see formal report. Discussed with patient his reassuring diagnostic studies. Will encourage increased fiber in the diet. He is to follow-up with primary care for recheck as well as preplanned outpatient cardiology work-up. Understands return precautions to the ER. Lab Data Lab results reviewed: Yes I reviewed the patient's lab results. Labs: Laboratory Results - last 24 hr 08/03/21 08/03/21 11:52 11:52 WBC 11.88 H RBC 4.40 Hgb 13.6 Hct 40.2 MCV 91.4 MCH 30.9 MCHC 33.8 RDW 13.4 Plt Count 293 MPV 9.5 Immature Gran % 0.3 Neutrophils % 65.6 Lymphocytes % 25.7 Monocytes % 6.6 Eosinophils % 1.5 Basophils % 0.3 Nucleated RBC % 0 Absolute Neutrophils 7.79 H Absolute Lymphocytes 3.05 Absolute Monocytes 0.78 Absolute Eosinophils 0.18 Absolute Basophils 0.04 Sodium 140 Potassium 4.2 Chloride 105 Carbon Dioxide 30.2 Anion Gap 4.8 BUN 13 Creatinine 1.0 Estimated GFR/1.73 m2 >= 60.00 Glucose 84 Calcium 9.0 Total Bilirubin 0.2 AST 18 ALT 23 Alkaline Phosphatase 85 Troponin I < 0.05 Total Protein 7.5 Albumin 3.7 Lipase 129 HPI General Mode of arrival: ambulatory . Date/Time Provider Initiated Documentation: 08/03/21 11:48 . Limitations to Documentation: no limitations . Information obtained by: patient . History of Present Illness 55 year old M presents to the emergency department with the chief complaint of Mid to lower abdominal pain for 2 weeks, described as moderate, Quality is described as aching, and is localized to the abdomen. Patient reports no radiation. Patient started experiencing this day(s) and it has been constant. No relieving factors improve symptom(s), No exacerbating factors reported . Patient notes denies nausea/vomiting, syncope and weakness. Patient did receive the following treatments prior to arrival, none Related Data Home Medications Medication Instructions Recorded Confirmed lansoprazole [Prevacid SoluTab] 60 mg PO BID 06/18/13 08/03/21 isosorbide mononitrate 180 mg PO DAILY 10/16/15 08/03/21 Rosuvastatin Calcium 40 mg PO DAILY 05/09/18 08/03/21 clopidogrel [Plavix] 75 mg PO DAILY 07/24/18 08/03/21 carvedilol 3.125 mg tablet 6.25 mg PO BID tab 06/14/19 08/03/21 amlodipine 10 mg tablet 10 mg PO DAILY 06/29/19 08/03/21 sertraline 50 mg PO DAILY 07/06/19 08/03/21 nitroglycerin [Nitrostat] 0.4 mg SUBLINGUAL Q5 MIN PRN X3 11/02/19 08/03/21 PRN #0 tab ranolazine 500 mg tablet,extended 500 mg PO BID 09/08/20 08/03/21 release,12 hr rivaroxaban 20 mg tablet 20 mg PO DAILY 09/08/20 08/03/21 bupropion HCl 150 mg 24 hr tablet, 300 mg PO DAILY 11/10/20 08/03/21 extended release acetaminophen 1,000 mg PO Q6H PRN 11/25/20 08/03/21 hydrocodone-acetaminophen 1 tab PO Q6H PRN #5 tab 03/03/21 08/03/21 Previous Rx's Medication Instructions Recorded nitroglycerin [Nitrostat] 0.4 mg SUBLINGUAL Q5 MIN PRN X3 11/02/19 PRN #0 tab hydrocodone-acetaminophen 1 tab PO Q6H PRN #5 tab 03/03/21 Allergies Allergy/AdvReac Type Severity Reaction Status Date / Time atorvastatin calcium AdvReac Intermediate liver Verified 08/03/21 11:55 [From Lipitor] problems niacin AdvReac Mild flushing Verified 08/03/21 11:55 adhesive from monitor tabs Allergy Intermediate jones Uncoded 08/03/21 11:55 General Stated Complaint: Chest Pain MARQUIS: 2 Review of Systems Narrative: 6 systems reviewed and otherwise negative. Has pending outpatient catheterization. Unchanged chronic chest pain. PENDING SALE TO [facility] Medical History Anemia Atrial fibrillation Back pain, chronic Chest pain Coronary artery disease Depression with anxiety Diverticulosis Duodenal ulcer Dysesthesia Dyslipidemia Dyspepsia Erectile disorder, acquired, generalized, severe Esophagitis Gastritis Hemiplegia History of kidney cancer Hx of adenomatous polyp of colon Inguinal hernia Ischemic stroke Lipoma of back Muscle wasting and atrophy, not elsewhere classified, other site Occipital headache Penile pain Pulmonary nodules Recurrent bilateral inguinal hernia Sleep apnea Spermatocele Tobacco use Trigger finger, left ring finger s/p release 03/03/2021 Trigger finger, right index finger Trigger finger, right middle finger Trigger thumb, left thumb Tubular adenoma of colon (08/03/17) Umbilical hernia Surgical History Bilateral carpal tunnel syndrome S/P B/L ECTR: 11/25/2020 cardiac cath 2014, 9 stents over the years since 2002. Jul or Aug was last stent put in per pt. Colonoscopy - MAC (08/03/17) EGD - MAC (08/03/17) History of back surgery partial fusion History of loop recorder placed a couple months ago per pt 2019 under left chest. History of radiofrequency ablation procedure for cardiac arrhythmia Hx of appendectomy Hx of carpal tunnel repair R side Hx of tonsillectomy Olecranon bone spur s/p debridement on 07/27/2019. R elbow Partial Nephrectomy left side for renal cell cancer. Has yearly CT scan. 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 Social History Smoking/Tobacco Use Status: Current every day Tobacco Type: cigarettes Smoking packs per day: 10 Smoking cigarettes per day: 200.0 Years smoked: 46 Smoking pack-years: 460.00 Smoking risk assessment performed?: Yes Alcohol Intake: current Alcohol Intake frequency: a few times a month Drug use: Never Substance use type: does not use Household members: spouse and children Housing: house Number of Children: 1 Pets and animals: Yes Pets and animals: cat(s) and dog(s) Current gender identity: male What is your relationship status?: Panel score (0-1 are the most socially isolated patients): 1 What type of physical activity do you participate in: none Seatbelt use: sometimes Do you feel safe at home: Yes Do you feel safe in your relationship?: Yes Exam Narrative Exam Narrative: GEN: awake, alert, oriented 3. Pleasant, well groomed, interactive. HEAD: Normocephalic, atraumatic ENT: External ear exam unremarkable EYES: PERRL, EOMI NECK: Full ROM, no CANDACE, no menigismus CHEST/RESP: Nontender, clear to auscultation bilateral, no wheeze/rhonchi/rales CARDIOVASCULAR: RRR, no murmur, rub winter. 2+ Rad pulse bilateral ABDOMEN: Soft, mild diffuse tenderness through the mid to lower abdomen, no mass. +Bowel sounds EXT: Full ROM, no edema, no rash Neuro: Grossly normal neurologic exam, conversant, interactive. Psych: Speech fluent, thoughts congruent, affect normal Course Vital Signs Vital signs: Vital Signs Temperature 36.6 C 08/03/21 11:49 Pulse 74 08/03/21 11:49 Respiratory Rate 14 08/03/21 11:49 Blood Pressure 130/72 08/03/21 11:49 Pulse Oximetry 97 08/03/21 11:49 Temperature 36.6 C 08/03/21 11:49 Temperature Source Skin 08/03/21 11:49 Pulse 74 08/03/21 11:49 Respiratory Rate 14 08/03/21 11:49 Respiratory Effort Non-Labored 08/03/21 11:49 Blood Pressure 130/72 08/03/21 11:49 Blood Pressure Position Supine 08/03/21 11:49 Pulse Oximetry 97 08/03/21 11:49 Pain Level 6 08/03/21 11:49
[2021-08-03 12:33] LABS: Abs Immature Grans 0.04 10^3/uL (0.0-0.06); Absolute Basophil Count 0.04 10^3/uL (0.0-0.2); Absolute Eosinophil Count 0.18 10^3/uL (0.0-0.7); Absolute Lymphocyte Count 3.05 10^3/uL (1.2-3.4); Absolute Monocyte Count 0.78 10^3/uL (0.1-0.8); Absolute Neutrophil Count 7.79 10^3/uL (1.2-6.7); Basophils % 0.3; Eosinophils % 1.5; HCT 40.2 % (40.0-50.0); HGB 13.6 g/dL (13.5-17.5); Immature Grans % 0.3; Lymphocytes % 25.7; MCH 30.9 pg (27.0-33.0); MCHC 33.8 % (32.0-36.0); MCV 91.4 fL (80-95); MPV 9.5 fL (8.0-11.0); Monocytes % 6.6; Neutrophils % 65.6; Nucleated RBC 0 %; Platelet Count 293 10^3/uL (130-400); RDW 13.4 % (11.8-14.1); RDW-SD 46.2 fL; WBC 11.88 10^3/uL (4.4-10.8)
[2021-08-03] MEDS: Pantoprazole 40 MG VIAL IVP (12:45)
[2021-08-03] MEDS: Normal Saline 1,000 ML 125 ML IV (12:45)
[2021-08-03 12:47] LABS: ALT 23 U/L (16-63); AST 18 U/L (15-37); Albumin 3.7 g/dL (3.4-5.0); Alkaline Phosphatase 85 U/L (46-116); Anion Gap 4.8 mmol/L (3-11); BUN 13 mg/dL (7-18); Bilirubin, Total 0.2 mg/dL (0.2-1.0); CO2 30.2 mmol/L (21.0-32.0); Chloride 105 mmol/L (98-107); Glucose 84 mg/dL (74-106); Lipase 129 U/L (73-393); Potassium 4.2 mmol/L (3.5-5.1); Sodium 140 mmol/L (136-145); Total Protein 7.5 g/dL (6.4-8.2)
[2021-08-03 12:50] LABS: Troponin I < 0.05 ng/mL (<0.06)
[2021-08-03 13:22] LABS: Bilirubin Negative (Negative); Blood Negative (Negative); Clarity Clear (Clear); Glucose Negative (Negative); Ketones Negative (Negative); Leukocyte Esterase Negative (Negative); Nitrite Negative (Negative); Specific Gravity 1.015 (1.005-1.025); Urobilinogen 0.2 EU/dL (Up TO 0.2)
[2021-08-03] MEDS: Normal Saline - Diluent 50 ML VIAL IV (13:37)
[2021-08-03] MEDS: Omnipaque 350 MG/ML 100 ML BTL IJ (13:38)
[2021-08-03] MEDS: Omnipaque 350 MG/ML 50 ML BTL PO (13:38)
[2021-08-03] MEDS: Breeza Beverage 473 ML BTL 946 ML PO (13:39)
--- NOTE | 2021-08-03 13:45 | DI.CT_ITS ---
Exam(s) CT ABDOMEN PELVIS W EXAM: CT ABDOMEN PELVIS W CLINICAL HISTORY: lower abd pain, hx of tics, wait for Cr please TECHNIQUE: Imaging Protocol: Axial computed tomography images with coronal and sagittal reformatted images were created and reviewed CONTRAST MATERIAL: Intravenous: Omnipaque 350 Contrast volume:100 mL Oral: Yes COMPARISON: CT CT THORAX CTA from 01/14/[address] THORAX CTA from 01/14/[address] ABDOMEN PELVIS W from 04/07/[address] ABDOMEN PELVIS W from 04/07/2021 FINDINGS: ABDOMEN: Lung Bases: Dependent atelectasis. Calcified granuloma in the right lower lobe. There are stable no ncalcified pulmonary nodules in the right middle lobe. Coronary artery calcifications. Liver: Normal density. Stable tiny hypodensities in the liver. They are too small for further charac terization but likely reflect small cysts. No follow-up is recommended. Portal, Superior Mesenteric, and Splenic Veins: Unremarkable. Gallbladder and Biliary Tract: No radiodense calculus or dilation. Pancreas: Normal density, no abnormal calcifications or inflammatory process. Spleen: Normal. Adrenals: No masses seen. Kidneys: Postsurgical defect in the superior pole of the left kidney. Calcifications seen in the upp er pole of the left kidney which may be vascular or represent nonobstructing stones. No masses seen. Abdominal Aorta: Abdominal portion non-dilated. Atherosclerosis. Bowel: No obstruction or bowel wall thickening. No evidence of appendicitis. There is diverticulosis in the descending and sigmoid colon. No pericolonic inflammatory changes are seen to suggest acute diverticulitis. There is a moderate amount of stool throughout the colon. Peritoneal Cavity: No ascites, collection or mesenteric inflammatory response. No free air. Lymph Nodes: Within normal limits. Bones: Within normal limits for the patient's age. There is a left convex scoliosis of the lumbar sp ine. Moderately severe degenerative changes are seen in the lower lumbar spine. Soft Tissues: Unremarkable. PELVIS: Bladder: Symmetric distention, no gross wall thickening. Reproductive Organs: Mildly enlarged prostate gland. Lymph Nodes: Within normal limits. Bones: Within normal limits for the patient's age. IMPRESSION: 1. No acute abdominal or pelvic process. 2. Colonic diverticulosis, but no evidence of acute diverticulitis. 3. Stable postsurgical changes in the left kidney. 4. Results of this exam have been verbally communicated with provider. RADIATION DOSE DELIVERED: Total DLP DATA REPOSITORY: All CT scans at this facility are submitted to the National Radiology Data Registry (NRDR) Dose Index Registry (DIR) with the [employer] (ACR). RADIATION OPTIMIZATION: All CT scans at this facility use at least one of these dose optimization te chniques: automated exposure control; mA and/or kV adjustment per patient size (includes targeted exa ms where dose is matched to clinical indication); or iterative reconstruction.
== END 2021-08-03 14:16 | disposition home or self-care (01) ==
PROVIDERS: Emergency Provider Emergency Medicine; PCP Internal Medicine
DX: R10.30 Lower abdominal pain, unspecified (principal); R19.7 Diarrhea, unspecified
CPT/HCPCS: 80053; 83690; 93005; 96374; 99285; 74177; 81003; 84484; 85025; 93010; 99284; J3490; Q9967

== ENCOUNTER → 2021-08-10 01:33 | Outpatient (CLI) | payer MEDICARE, SELFPAY ==
--- NOTE | 2021-08-10 07:00 | DI.NM_ITS ---
APPROVED REPORT Exam: Pharmacologic Patient Location: Out-Patient Room/Bed: Stress Nurse: Mackenzie Hill RN Ordering Provider:JOANNE PARKD, Contact Number: [phone] BMI: 31.23 Baseline Rhythm: Sinus Rhythm Comment: Abnormal ST-T in inferior septal leads Indications: CAD w/ chest pain Medical History Medical History: AFib, chest pain, CAD, depression w/ anxiety, hyperlipidemia, obesity, dyspepsia, ED , hemiplegia, hx of kidney cancer, ischemic stroke, pulmonary nodules, sleep apnea, tobacco use Cardiac Medications: Rivaroxaban, ranolazine, nitroglycerin, lansoprazole, isosorbide mononitrate, cl opidogrel, carevedilol, amlodipine, rosuvastatin Allergies: Atorvastatin, niacin, adhesives Cardiac Risk Factors: Hyperlipidemia, CVD, smoker (current), family hx, obesity Previous Cardiac Procedures: PCI w/ stent placement, stents x9 ([id number]) Pretest Chest Pain Characteristics: Baseline CP 10/05 Exercise History: Sedentary Physical Disabilities: Arthritis in back Lung Sounds: Clear to auscultation Heart Sounds: Regular Stress Test Details Test: Pharmacologic stress was paired with low level exercise. Reason for pharmacologic stress test: physical limitation. Nuclear Acquisition: Rest Tc-99m/Stress Tc-99m 1 day Rest Isotope: Tc-99m Sestamibi. Dose: 11.6 Date: 08/10/2021 Injection Time: 1120 Stress Isotope: Tc-99m Sestamibi. Dose: 37.6 Date: 08/10/2021 Injection Time: 1325 HR Resting HR Supine: 60 bpm Max Heart Rate (APMHR): 164.104966 bpm Resting HR Standin bpm Target HR (85% APMHR): 139.965906 bpm Max HR Achieved: 94 bpm % of APMHR: 57.32 Recovery HR: 66 bpm BP Resting BP Supine: 124/80 mmHg Resting BP Standin/80 mmHg Max BP: 130/82 mmHg Recovery BP: 130/82 mmHg ECG Resting ECG: Sinus Rhythm Ectopy: None Comment: Abnormal ST-T in inferior septal leads Stress ECG: Sinus Tachycardia ST Change: No significant ST segment changes noted Arrhythmia: None Recovery ECG: Sinus Rhythm Recovery ST Change: No significant ST segment changes noted Recovery Arrhythmia: None Clinical Stress Symptoms: Dyspnea, Chest pain Exercise duration: 4 min00 sec Rate Pressure Product: 23149 Stress ECG Conclusion 1. The resting electrocardiogram was within normal limits 2. Patient underwent pharmacologic stress paired with low-level exercise 3. Peak heart rate was 57 percent of predicted heart rate for age 4. Electrocardiographically the test was nondiagnostic due to inadequate heart rate Stress Test Summary STAGE HR BP Symptoms NOTES Supine 60 124/80 Baseline CP 1/10 SpO2 97% 1 min post Lexiscan injection 90 120/72 Moderate SOB, CP 3/10 SpO2 97% 3 min post Lexiscan injection 66 130/74 Symptoms improving SpO2 98% 6 min post Lexiscan injection 66 130/82 Symptoms resolved, CP return to baseline 1/10 SpO2 98% Pt unable to exercise with Silvestre protocol due to limiting back pain. Stated he has always had Lexisca n tests for previous MPIs. Walking Lexiscan test performed with walking speed 2.0mph and grade 0%. Pt tolerated test well. MPI Conclusion Normal myocardial perfusion without evidence of ischemia or prior infarction Wall motion appears normal EF 52% Radiologist Interpretation Radiologist agrees with [employer] Tender's Interpretation. Radiologist Interpretation by: Mik Marti MD Interpretation Date/Time: 08/12/2021 11:13:05
== END ==
PROVIDERS: PCP Internal Medicine; Visit Provider Internal Medicine Cardiovascular Disease
DX: I25.10 Atherosclerotic heart disease of native coronary artery without angina pectoris (principal); R07.9 Chest pain, unspecified; E78.5 Hyperlipidemia, unspecified; F17.290 Nicotine dependence, other tobacco product, uncomplicated; Z82.49 Family history of ischemic heart disease and other diseases of the circulatory system; E66.9 Obesity, unspecified; Z95.5 Presence of coronary angioplasty implant and graft; R94.39 Abnormal result of other cardiovascular function study
CPT/HCPCS: 78452; 93016; 93018; 93017

== ENCOUNTER 2021-08-24 13:52 | Outpatient (REF) | payer MEDICARE, SELFPAY ==
[2021-08-24 21:43] LABS: Abs Immature Grans 0.07 10^3/uL (0.0-0.06); Absolute Basophil Count 0.07 10^3/uL (0.0-0.2); Absolute Eosinophil Count 0.13 10^3/uL (0.0-0.7); Absolute Lymphocyte Count 2.58 10^3/uL (1.2-3.4); Absolute Neutrophil Count 10.23 10^3/uL (1.2-6.7); Basophils % 0.5; Eosinophils % 0.9; HCT 39.4 % (40.0-50.0); Immature Grans % 0.5; Lymphocytes % 18.2; MCH 30.2 pg (27.0-33.0); MCV 91.6 fL (80-95); MPV 9.8 fL (8.0-11.0); Monocytes % 7.6; Neutrophils % 72.3; Nucleated RBC 0 %; Platelet Count 312 10^3/uL (130-400); RDW 13.1 % (11.8-14.1); RDW-SD 44.2 fL; WBC 14.15 10^3/uL (4.4-10.8)
[2021-08-24 21:52] LABS: Absolute Monocyte Count 1.08 10^3/uL (0.1-0.8)
[2021-08-24 22:14] LABS: ALT 22 U/L (16-63); AST 16 U/L (15-37); Albumin 3.7 g/dL (3.4-5.0); Alkaline Phosphatase 90 U/L (46-116); Anion Gap 10.6 mmol/L (3-11); BUN 17 mg/dL (7-18); Bilirubin, Total 0.3 mg/dL (0.2-1.0); CO2 25.4 mmol/L (21.0-32.0); Chloride 102 mmol/L (98-107); Glucose 83 mg/dL (74-106); Sodium 138 mmol/L (136-145); Total Protein 7.2 g/dL (6.4-8.2)
[2021-08-26 10:17] LABS: Hepatitis C Ab w Rflx HCV PCR Negative (Negative)
[2021-08-26 10:30] LABS: HIV-1/2 Ag & Ab Screen Negative (Negative)
== END 2021-08-24 13:53 | disposition home or self-care (01) ==
LOC: NCHCN 13:52
PROVIDERS: PCP Internal Medicine; Visit Provider Family Medicine
DX: R19.7 Diarrhea, unspecified (principal); L98.9 Disorder of the skin and subcutaneous tissue, unspecified; Z11.4 Encounter for screening for human immunodeficiency virus [HIV]; Z11.59 Encounter for screening for other viral diseases
CPT/HCPCS: 80053; 86803; 87329; 87389; 83630; 85025; 87177

== ENCOUNTER 2021-08-26 14:51 | Outpatient (REF) | payer MEDICARE, SELFPAY | END 2021-08-26 14:52 | disposition home or self-care (01) | LOC: LBN 14:51 | PROVIDERS: PCP Internal Medicine; Visit Provider Family Medicine | DX: R19.7 Diarrhea, unspecified (principal); L98.9 Disorder of the skin and subcutaneous tissue, unspecified | CPT/HCPCS: 83630 ==

== ENCOUNTER 2021-08-31 12:22 | Outpatient (REF) | payer MEDICARE, SELFPAY ==
--- NOTE | 2021-08-31 11:00 | SKI_PTH ---
PATIENT: Adams Anne LOC: [facility] U#:[id number] AGE/SX: 55/M ROOM: RE08/31/[address]: Aleksey Desouza : 1965 BED: DIS: 08/31/2021 SPEC #: [id number] RECD: 08/31/21 17:55 STATUS: MARAL REQ #: [id number] QI: 08/31/21 11:[address]: Aleksey Desouza DEPT: Surgical Specimen RECD BY: Heaven Castellanos ENTERED: 08/31/21 17:56 SP TYPE: ALISE ONOFRE DR: Delonte Corral Tissues: 1 - SKIN BIOPSY(SHAVE/PUNCH) Procedures: SKIN LEVEL 4 Comments: [id number]
== END 2021-08-31 12:23 | disposition home or self-care (01) ==
LOC: LBN 12:22
PROVIDERS: PCP Internal Medicine; Visit Provider Family Medicine
DX: L82.0 Inflamed seborrheic keratosis (principal)
CPT/HCPCS: 88305

== ENCOUNTER → 2021-10-08 13:16 | Outpatient (BNVA) | payer MEDICARE, SELFPAY | PROVIDERS: PCP Internal Medicine; Referring Provider Internal Medicine; Visit Provider Physical Therapy Assistant | DX: Z12.11 Encounter for screening for malignant neoplasm of colon (principal); Z86.010 Personal history of colon polyps; Z80.0 Family history of malignant neoplasm of digestive organs; R07.9 Chest pain, unspecified ==

== ENCOUNTER → 2021-10-15 09:41 | Outpatient (BNVA) | payer MEDICARE, SELFPAY | PROVIDERS: PCP Internal Medicine; Visit Provider Internal Medicine Cardiovascular Disease | DX: I25.10 Atherosclerotic heart disease of native coronary artery without angina pectoris (principal); F17.210 Nicotine dependence, cigarettes, uncomplicated; Z01.810 Encounter for preprocedural cardiovascular examination | CPT/HCPCS: 99213 ==

== ENCOUNTER 2021-11-16 02:13 | Outpatient (CLI) | payer MEDICARE, SELFPAY ==
[2021-11-16 12:28] LABS: Source Nasal/Nares
[2021-11-16 17:58] LABS: COVID-19 PCR Negative (Negative)
== END 2021-11-16 02:14 | disposition home or self-care (01) ==
LOC: LBO 02:13
PROVIDERS: PCP Internal Medicine; Visit Provider Surgery
DX: Z20.822 Contact with and (suspected) exposure to COVID-19 (principal); Z01.818 Encounter for other preprocedural examination
CPT/HCPCS: 87635; U0005

== ENCOUNTER 2021-11-18 08:53 | Day surgery (SDC) | payer MEDICARE, SELFPAY ==
--- NOTE | 2021-11-18 06:38 | HPE_ITS ---
Assessment and Plan Assessment and plan (1) Encounter for colonoscopy due to history of adenomatous colonic polyps: Status: Acute Assessment and plan: ?The patient is here for Colonoscopy pre-op. His last screening was in 2017, which was remarkable for tubular adenomatous polyp . He reports a family history of colon cancer in his brother, whom was dx at the age of 68. cancer. He has not had any bowel habit changes. -Discussed colonoscopy bowel prep as well as the procedure. Discussed possible complications of the procedure to include bleeding, pain, perforation, missed small lesion/polyp, sore throat, aspiration and adverse reaction to the medications. Questions were answered to patient?s satisfaction. No guarantees were implied or given.? Patient cleared by anesthesia and cardiology P// Colonoscopy under sedation History of Present Illness Narrative: 56 y/o patient with?a complicated medical history of inferior MS, multiple unstable angina episodes with coronary spasm, multiple CECELIA PCIs ([place] 2002), CECELIA PCI to 85% distal LCx in 2003, CECELIA PCI to the OM2 in 2005, CECELIA PCI to 90% mid OM1 in 2006, CECELIA PCI to 100% mid OM2, CECELIA PCI 90% distal cx in 2009, CECELIA PCI to 90% in stent restenosis in distal OM1 2014, paroxysmal atrial fibrillation s/p RFA 11/13/18, Left MCA stroke 2016 s/p TPA, GERD, renal mass s/ left partial nephrectomy and chronic back pain presents for colonoscopy screening pre-op. His last screening was in 2017, which was remarkable for tubular adenomatous polyp . He reports a family history of colon cancer in his brother, whom was dx at the age of 68. Patient reports that he previously was experiencing daily diarrhea x 2 months. However, this has since resolved for the past month. His bowel habits of have returned to normal. Denies any bloody or black tarry stools. Denies use of marijuana or any other recreational or illegal drugs. Patient describes having chest pain intermittently. He states that he has not used his Nitro in years.? When this chest pain occurs sometimes he is able to rest and relax and this discomfort resolves. Some days nothing helps and I have to let it run its course. This can be accompanied by sweating, SOB and arms feeling weird. Cardiology notes from 2020 discussed [place] [facility] [place] symptoms, however this was cancelled following st ress test and patient reporting that his symptoms had improved. ?He denies prior history or family history of adverse reactions or complications with anesthesia. The patient denies any history of? seizures, bleeding or clotting disorders. He reports having metal implanted in his low back. he has had no new medical issues since he was seen in the office. Review of Systems Cardiovascular Cardiovascular: Reports as per HPI and Reports system reviewed and no additional complaints, except as documented Respiratory Respiratory: Reports system reviewed and no additional complaints, except as documented Gastrointestinal Gastrointestinal: Reports as per HPI and Reports system reviewed and no additional complaints, except as documented PFSH All Active Problems Encounter for colonoscopy due to history of adenomatous colonic polyps (Acute) Unstable angina (Acute) Presented with 5/10 chest pain. Pain relieved with three nitroglycerins, then placed on a nitroglycerin drip, heaprin, as well as loaded with aspirin and Plavis. [place] [facility]. CAD (coronary artery disease) (Chronic 10/17/13) S/P MS x 2 in 2002. S/P PCI and stent procedures for total of six stents in the intervening 11 years. MPI at [facility] in 06/15/13, negative for ischemia. Cardiac cath in fall showed no flow-limiting lesions; no further intervention. Chest pain (Acute) newly diagnosed with Afib. Goes in and out of afib Right sided weakness (Acute) Pulmonary nodules (Chronic) Atrial fibrillation (Chronic) Stroke (Chronic) Abdominal pain (Acute) Medical History Acute epididymo-orchitis Anemia Back pain, chronic Depression with anxiety Diverticulitis Diverticulosis Dizziness Duodenal ulcer Dysesthesia Dyslipidemia Dyspepsia Erectile disorder, acquired, generalized, severe Esophagitis Gastritis Headache Hemiplegia History of kidney cancer Hx of adenomatous polyp of colon Inguinal hernia Ischemic stroke 2017 Laceration of finger of left hand Lipoma of back Muscle wasting and atrophy, not elsewhere classified, other site Occipital headache Olecranon bursitis of right elbow Penile pain Recurrent bilateral inguinal hernia Renal cell carcinoma of left kidney (10/01/16) Right elbow pain Sleep apnea Spermatocele Superficial foreign body of right elbow Tobacco use Trigger finger, right index finger Trigger finger, right middle finger Trigger thumb, left thumb Tubular adenoma of colon (08/03/17) Umbilical hernia Surgical History Bilateral carpal tunnel syndrome S/P B/L ECTR: 11/25/2020 cardiac cath 2014, 9 stents over the years since 2002. Jul or Aug was last stent put in per pt. Colonoscopy - MAC (08/03/17) EGD - MAC (08/03/17) History of back surgery partial fusion History of hernia repair History of loop recorder placed a couple months ago per pt 2019 under left chest. History of radiofrequency ablation procedure for cardiac arrhythmia Hx of appendectomy Hx of carpal tunnel repair R side Hx of tonsillectomy Olecranon bone spur s/p debridement on 07/27/2019. R elbow Partial Nephrectomy left side for renal cell cancer. Has yearly CT scan. 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 Social History Smoking/Tobacco Use Status: Current every day Tobacco Type: cigarettes Smoking packs per day: 10 Smoking cigarettes per day: 200.0 Years smoked: 46 Smoking pack-years: 460.00 Smoking risk assessment performed?: Yes Alcohol Intake: current Alcohol Intake frequency: a few times a month Drug use: Never Substance use type: does not use Household members: spouse and children Housing: house Number of Children: 1 Pets and animals: Yes Pets and animals: cat(s) and dog(s) Current gender identity: male What is your relationship status?: Panel score (0-1 are the most socially isolated patients): 1 What type of physical activity do you participate in: none Seatbelt use: sometimes Do you feel safe at home: Yes Do you feel safe in your relationship?: Yes Meds Allergies and Home Medications Allergies Allergy/AdvReac Type Severity Reaction Status Date / Time oxycodone Allergy Mild unknown Verified 11/18/21 09:04 atorvastatin calcium AdvReac Intermediate liver Verified 11/18/21 09:04 [From Lipitor] problems niacin AdvReac Mild flushing Verified 11/18/21 09:04 adhesive from monitor tabs Allergy Intermediate jones Uncoded 11/18/21 09:04 Home Medications Medication Instructions Recorded Confirmed Type Rosuvastatin Calcium 40 mg PO DAILY 05/09/18 11/17/21 History carvedilol 3.125 mg tablet 6.25 mg PO BID tab 06/14/19 11/18/21 History amlodipine 10 mg tablet 10 mg PO DAILY 06/29/19 11/18/21 History nitroglycerin 0.4 mg sublingual 0.4 mg SUBLINGUAL Q5 MIN PRN X3 11/02/19 0 11/17/21 Rx tablet (Nitrostat) PRN #0 tab ranolazine 500 mg tablet,extended 500 mg PO BID 09/08/20 11/18/21 History release,12 hr (Ranexa) rivaroxaban 20 mg tablet (Xarelto) 20 mg PO DAILY 09/08/20 11/18/21 History bupropion HCl 150 mg 24 hr tablet, 300 mg PO DAILY 11/10/20 11/18/21 History extended release acetaminophen 500 mg tablet 1,000 mg PO Q6H PRN 11/25/20 11/17/21 History hydrocodone 5 mg-acetaminophen 325 1 tab PO Q6H PRN #5 tab 03/03/21 11/18/21 Rx mg tablet clopidogrel 75 mg tablet (Plavix) 75 mg PO DAILY 09/29/21 11/17/21 History isosorbide mononitrate 120 mg 120 mg PO DAILY tab 09/29/21 11/18/21 History tablet,extended release 24 hr lansoprazole 30 mg delayed 30 mg PO BID tab 09/29/21 11/18/21 History release,disintegrating tablet (Prevacid SoluTab) sertraline 50 mg tablet 50 mg PO DAILY 09/29/21 11/18/21 History Exam Resp Auscultation: clear to auscultation bilaterally Cardio Rate: regular rate Rhythm: regular rhythm Heart Sounds: no gallops, no murmurs and no rubs
--- NOTE | 2021-11-18 06:44 | W.PM.DSUDISC ---
Discharge Plan Disposition Patient Disposition: HOME Condition: Stable Discharge Details Reason For Visit: Colonoscopy Attending Provider: Brianne Marinelli Primary Care Provider: Delonte Corral Home Meds and New Rx's Prescriptions: Continued Xarelto 20 mg tablet 20 mg PO DAILY 0RF Rx Instructions: must administer with evening meal ranolazine [Ranexa] 500 mg tablet extended release 12 hr 500 mg PO BID 0RF lansoprazole [Prevacid SoluTab] 30 mg tablet,disintegrat, delay rel 30 mg PO BID 0RF isosorbide mononitrate 120 mg tablet extended release 24 hr 120 mg PO DAILY 0RF clopidogrel [Plavix] 75 mg tablet 75 mg PO DAILY 0RF Label Comments: 07/26/19 per pt I think my last dose was Monday 07/23 but it could have been Tuesday I don't remember. sertraline 50 mg tablet 50 mg PO DAILY 0RF carvedilol 3.125 mg tablet 6.25 mg PO BID 0RF nitroglycerin [Nitrostat] 0.4 mg Tablet, Sublingual 0.4 mg sublingual Q5 MIN PRN X3 PRN (Reason: chest pain) Qty: 0 0RF acetaminophen 500 mg tablet 1,000 mg PO Q6H PRN (Reason: pain) 0RF Rosuvastatin Calcium 40 MG tablet 40 mg PO DAILY 0RF amlodipine 10 mg tablet 10 mg PO DAILY 0RF bupropion HCl 150 mg tablet extended release 24 hr 300 mg PO DAILY 0RF hydrocodone-acetaminophen 5-325 mg tablet 1 tab PO Q6H PRNQty: 5 0RF Discontinued bisacodyl [Dulcolax (bisacodyl)] 5 mg tablet,delayed release (DR/EC) 5 mg PO ONCE Qty: 4 0RF Rx Instructions: Take according to provider's instructions for colonoscopy prep. polyethylene glycol 3350 17 gram/dose powder 17 g PO ONCE Qty: 238 0RF Rx Instructions: To be taken as directed by prescriber's office for colonoscopy prep. Discharge Instructions Instructions: Diverticulosis (DC), Colorectal Polyps (DC) Additional Instructions: Findings: 10 polyps Morrison-diverticulosis Follow up: 3-5 years Please call if you develop: fevers >101.5 Nausea or Vomiting Abdominal pain that is not transient Rectal bleeding that is more then a tbsp A hard abdomen and inability to pass gas DAY SURGERY UNIT POST ENDOSCOPY INSTRUCTIONS Instructions for everyone who is given Anesthesia: For your safety, please do the following for the next 24 Hours: a. Do not drive or operate dangerous equipment b. Do not drink alcohol beverages or use any recreational drugs for the first 24 hours or while taking pain medications. The medications in your body may have a reaction that can be dangerous. c. Do not make any important decisions or sign any important papers 1. Generally there are no restrictions on your activity after a day or so has gone by, but you may feel a bit fatigued for a few days. 2. After you arrive home you may have a light meal and return to a normal diet as you can tolerate it without feeling sick to your stomach. 3. After surgery, you may feel pain or discomfort. This should be only transient, but if it persists please contact your doctor. 4. If there are any questions regarding the findings of your procedure, please feel free to contact your doctor. 6. If you are unable to contact your doctor with a problem, contact the hospital at [phone]. 7. Continue all your regular medications unless directed otherwise. I understand the above instructions and have no questions. Signature of Patient or Responsible Adult Escort Date/Time Name of Responsible Adult Escort Signature of Nurse Date/Time Activity:: Activity as Tolerated Diet:: high fiber diet Discharge Orders Discharge Orders: Discharge Order (Routine); Ordered 11/18/21 Ordered By: Brianne Marinelli DS: Diagnosis Discharge Diagnosis (1) Encounter for colonoscopy due to history of adenomatous colonic polyps: Status: Acute
[2021-11-18 09:19] VITALS: BP 116/82; PULSE 69; RESP 18; TEMP 36; O2SAT 100
[2021-11-18] MEDS: Lactated Ringers 1,000 ML 80 ML IV (09:25)
--- NOTE | 2021-11-18 09:53 | W.ANESPRE ---
General Info Date of Service Date Performed: 11/18/21 Height: 5 ft 10 in Weight: 97.5 kg Body Mass Index (BMI): 30.8 Surgical Procedure: Operation Date: 11/18/21 11:05 Proposed Procedure Side Surgeon ana Marinelli MD Meds Allergies and Home Medications Allergies Allergy/AdvReac Type Severity Reaction Status Date / Time oxycodone Allergy Mild unknown Verified 11/18/21 09:04 atorvastatin calcium AdvReac Intermediate liver Verified 11/18/21 09:04 [From Lipitor] problems niacin AdvReac Mild flushing Verified 11/18/21 09:04 adhesive from monitor tabs Allergy Intermediate jones Uncoded 11/18/21 09:04 Home Medication Medication Instructions Recorded Rosuvastatin Calcium 40 mg PO DAILY 05/09/18 carvedilol 3.125 mg tablet 6.25 mg PO BID tab 06/14/19 amlodipine 10 mg tablet 10 mg PO DAILY 06/29/19 nitroglycerin 0.4 mg sublingual 0.4 mg SUBLINGUAL Q5 MIN PRN X3 11/02/19 tablet (Nitrostat) PRN #0 tab ranolazine 500 mg tablet,extended 500 mg PO BID 09/08/20 release,12 hr (Ranexa) rivaroxaban 20 mg tablet (Xarelto) 20 mg PO DAILY 09/08/20 bupropion HCl 150 mg 24 hr tablet, 300 mg PO DAILY 11/10/20 extended release acetaminophen 500 mg tablet 1,000 mg PO Q6H PRN 11/25/20 hydrocodone 5 mg-acetaminophen 325 1 tab PO Q6H PRN #5 tab 03/03/21 mg tablet clopidogrel 75 mg tablet (Plavix) 75 mg PO DAILY 09/29/21 isosorbide mononitrate 120 mg 120 mg PO DAILY tab 09/29/21 tablet,extended release 24 hr lansoprazole 30 mg delayed 30 mg PO BID tab 09/29/21 release,disintegrating tablet (Prevacid SoluTab) sertraline 50 mg tablet 50 mg PO DAILY 09/29/21 bisacodyl 5 mg tablet,delayed 5 mg PO ONCE #4 tab 10/08/21 release (Dulcolax (bisacodyl)) polyethylene glycol 3350 17 17 g PO ONCE #238 g 10/08/21 gram/dose oral powder Current Visit Medications: Current Medications Generic Name Dose Route Start Last Admin Trade Name Freq PRN Reason Stop Dose Admin Hyoscyamine Sulfate 0.125 mg 11/18/21 06:45 Hyoscyamine 0.125 Mg Sl/Oral/Chew SL DIRECTED PRN Ringer's Solution 1,000 mls @ 80 mls/hr 11/18/21 06:00 11/18/21 09:25 IV 12/17/21 23:59 80 mls/hr INFUSION KEHINDE Administration IV Miscellaneous Supplies 1 each 11/18/21 06:00 Iv Access IV 12/17/21 23:59 DIRECTED KEHINDE Ondansetron HCl 4 mg 11/18/21 06:45 Ondansetron 4 Mg/2 Ml Vial IVP Q4H PRN PRN Nausea / Vomiting Sodium Chloride 0 ml 11/18/21 06:00 Normal Saline Flush 10 Ml Syr IV 12/17/21 23:59 PRN PRN Sodium Chloride 0 ml 11/18/21 06:00 Normal Saline 10 Ml Vial IJ 12/17/21 23:59 DIRECTED PRN Sterile Water 0 ml 11/18/21 06:00 Water,Injection,Sterile 10 Ml Vial IJ 12/17/21 23:59 DIRECTED PRN PFSH Active Problems Active Problems: Problem Status Onset Code Encounter for colonoscopy due to history of adenomatous colonic polyps Z12.11, Z86.010 Unstable angina I20.0 CAD (coronary artery disease) 10/17/13 I25.10 Chest pain R07.9 Right sided weakness R53.1 Pulmonary nodules Atrial fibrillation I48.91 Stroke I63.9 Abdominal pain R10.9 Medical History Medical History Acute epididymo-orchitis Anemia Back pain, chronic Depression with anxiety Diverticulitis Diverticulosis Dizziness Duodenal ulcer Dysesthesia Dyslipidemia Dyspepsia Erectile disorder, acquired, generalized, severe Esophagitis Gastritis Headache Hemiplegia History of kidney cancer Hx of adenomatous polyp of colon Inguinal hernia Ischemic stroke 2017 Laceration of finger of left hand Lipoma of back Muscle wasting and atrophy, not elsewhere classified, other site Occipital headache Olecranon bursitis of right elbow Penile pain Recurrent bilateral inguinal hernia Renal cell carcinoma of left kidney (10/01/16) Right elbow pain Sleep apnea Spermatocele Superficial foreign body of right elbow Tobacco use Trigger finger, right index finger Trigger finger, right middle finger Trigger thumb, left thumb Tubular adenoma of colon (08/03/17) Umbilical hernia Medical History Comments:: Loop recorder (L) chest per robin (BB) does not need interpretation log. Surgical History Surgical History Bilateral carpal tunnel syndrome S/P B/L ECTR: 11/25/2020 cardiac cath 2014, 9 stents over the years since 2002. Jul or Aug was last stent put in per pt. Colonoscopy - MAC (08/03/17) EGD - MAC (08/03/17) History of back surgery partial fusion History of hernia repair History of loop recorder placed a couple months ago per pt 2019 under left chest. History of radiofrequency ablation procedure for cardiac arrhythmia Hx of appendectomy Hx of carpal tunnel repair R side Hx of tonsillectomy Olecranon bone spur s/p debridement on 07/27/2019. R elbow Partial Nephrectomy left side for renal cell cancer. Has yearly CT scan. 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 Tobacco Smoking/Tobacco Use Status: Current every day Tobacco Type: cigarettes Smoking packs per day: 10 Smoking cigarettes per day: 200.0 Years smoked: 46 Smoking pack-years: 460.00 Alcohol Alcohol Intake: current Alcohol intake frequency: a few times a month Substance Use Substance use: Never Substance use type: does not use Vital Signs and Lab Results Vital Signs Most Recent Vital Signs in EMR: Most Recent Vital Signs Temp Pulse Resp BP Pulse Ox 36.0 C L 69 18 116/82 100 11/18/21 09:19 11/18/21 09:19 11/18/21 09:19 11/18/21 09:19 11/18/21 09:19 Lab Results Blood Type / Crossmatch: No Data to Display Complete Blood Count: No Data to Display Complete Metabolic Panel: No Data to Display Liver Function Panel: No Data to Display Coagulation Panel: No Data to Display Cardiac Panel: No Data to Display Arterial Blood Gas: No Data to Display Venous Blood Gas: No Data to Display Pancreas Panel: No Data to Display Thyroid Panel: No Data to Display Infectious Disease: Coronavirus (COVID-19)(PCR) Negative (Negative) 11/16/21 08:43 11/16/21 Coronavirus 2019 Source Nasal/Nares 11/16/21 08:43 11/16/21 Blood Cultures: No Data to Display Toxicology Panel: No Data to Display Imaging and Studies Imaging and Studies Study information below may be from another EMR and interpreted by another provider. Please see original notes in EMR for more complete details. EKG Summary: DATE/TIME OF SERVICE: 08/03/21 1149 : 1965PERFORMING LOCATION: ER APPROVED REPORT Exam: Resting ECG Reason for Exam: abd pain Patient Location: E HR:73 bpm ECG Measurements Heart Rate 73 AXIS VT 145 P 41 QRSd 97 QRS 5 QT 387 T53 QTc 427 Conclusion Sinus rhythm...normal P axis, V-rate 60- 99 Stress Test Summary: Date of Exam: 08/10/21Sex: M Admission Date: 08/10/21 : 1965 Age: 55 MPI Conclusion Normal myocardial perfusion without evidence of ischemia or prior infarction Wall motion appears normal EF 52% Echocardiogram Summary: Date of Exam: 11/01/19ex: M Admission Date: 11/01/19 : 1965 Age: 54 Exam(s) a US:US echo wo doppler or color APPROVED REPORT EXAM: Limited 2D Echocardiogram Patient Location: ER Lodging Manager: Louise Bui RDCS (AE) Rhythm: NSR Indications: concern for atypical L vent anatomy vs. aneurysm Conclusion Left Ventricle : The left ventricle is normal size. There is no evidence of an LV aneurysm though contrast was not utilized. There is normal left ventricular wall thickness. The left ventricular systolic function is normal. The left ventricular ejection fraction is within the normal range. There is normal LV segmental wall motion. LVEF is estimated to be 60-65%. Compared to echocardiogram dated 10/16/2015: There is no change noted Pulmonary Function Summary: DATE OF SERVICE March 22, 2019 REQUESTING PROVIDER Delonte Corral M.D. INTERPRETATION OF STUDY Spirometry shows no evidence of obstructive airways disease. No bronchodilator response. LUNG VOLUMES - Lung volumes show no evidence of restriction. DIFFUSION CAPACITY- Mildly reduced even when corrected to alveolar volume. AIRWAY RESISTANCE - Normal. IMPRESSION Overall no evidence of obstructive airways disease. There is mild diffusion defect even when corrected to alveolar volume. As an isolated finding, this can be associated with developing pulmonary hypertension or developing interstitial lung disease, therefore clinical correlation recommended. Anesthesia Assessment and Plan Anesthesia History Personal History: No History of Anesthesia Complications Family History: No Family History of Anesthesia Complications Exercise Tolerance Exercise Tolerance: Metabolic Equivalents>4 Pertinent Negatives Pertinent Negatives: No Symptoms of GERD Cardiac & Pulmonary Exam Cardiac Exam: Normal S1/S2 Heart Sounds Pulmonary Exam: Clear Bilateral Breath Sounds Implantable Cardiac Device Does patient have a Pacemaker or an ICD?: No Airway Exam Known Difficult Airway: No Mallampati Class: 1 Mouth Opening: Normal (> 3cm) Thyromental Distance: Greater than 3 cm Neck Range of Motion: Full ROM Neck Circumference: Normal Teeth Condition: Edentulous ASA Classification ASA Score: ASA 3 Emergency Case?: No NPO Status NPO Status: NPO Clears >2 hours, Solids >8 hours Anesthesia Plan Resuscitation Status: Full Code Anesthesia Technique: General Anesthesia Airway Planned: Natural Airway Monitors Used: Standard Monitors
[2021-11-18 10:01] VITALS: BMI 30.8
--- NOTE | 2021-11-18 10:15 | BOWEL_PTH ---
PATIENT: Adams Anne LOC: [facility] U#:[id number] AGE/SX: 56/M ROOM: RE11/18/[address]: Brianne Marinelli MD : 1965 BED: DIS: 11/18/2021 SPEC #: [id number] RECD: 11/18/21 12:45 STATUS: MARAL REQ #: [id number] QI: 11/18/21 10:[address]: Brianne Marinelli DEPT: Surgical Specimen RECD BY: Heaven Castellanos ENTERED: 11/18/21 12:47 SP TYPE: Bowel OTHR DR: Delonte Corral Tissues: 1 - BIOPSY BOWEL 2 - BIOPSY BOWEL 3 - BIOPSY BOWEL 4 - BIOPSY BOWEL 5 - BIOPSY BOWEL Procedures: GROSS AND MICRO LEVEL 4 Comments: [id number]
[2021-11-18 10:50] VITALS: BP 96/61; PULSE 63; RESP 20; TEMP 36.3; O2SAT 92
--- NOTE | 2021-11-18 10:58 | COLE_ITS ---
Colonoscopy Report Date of procedure: 11/18/21 Pre-op diagnosis general: Hx of colon polyps Post-op diagnosis procedure note: same (and diverticulosis) Procedure: Colonoscopy with polypectomy Surgeon: Brianne Marinelli Anesthesia Type: General:No Airway Estimated blood loss (mL): 3 Pathology: other (Ascending colon polyp, transverse polyp x2, descending polyps x3, sigmoid polyp, rectal polyp) Complications: None Disposition: same day Indications: Mr. Anne is a 56 year old male with a history of colon polyps. He was seen in the office to discuss another colonosdcopy. Prep: Miralax/Dulcolax Procedure Start Time: 10:11 Procedure End Time: 10:45 Retraction Time: 19 minutes Findings: multiple polyps and gastelum-diverticulosis Procedure Description: After informed consent was obtained the patient was taken to the procedure room and placed in a left decubitous position. Monitors were applied and a time out was done. The patients name, date of , procedure, allergies to medications and metal in their body was reviewed. The patient was then sedated. Once sedated and comfortable a rectal exam was done. External exam was normal. Internal exam revealed a normal sphincter tone and no palpable masses. The prostate felt smooth. The scope was then introduced and retro-flexed. No internal hemorrhoids, polyps or masses were identified on retro-flexion. The scope was then advanced to the cecum without difficulty. The ileocecal vlave and appendiceal orifice were i dentified. The prep was good. The scope was then slowly retracted over 19 minutes back into the rectum. Polyps were removed with cold forceps in the ascending colon, transverse colon, descending colon x3, sigmoid colon and rectum x3.. There was gastelum-diverticulosis noted. The scope was removed and the patient was woken up and taken back to Same day surgery in stable condition. The patient tolerated the procedure well and there were no immediate complications. Follow up: The patient should follow up in 3-5 years unless they develop changes in bowel habits or other new gastrointestinal complaints.
--- NOTE | 2021-11-18 11:15 | W.ANESPOSTOP ---
Postoperative Evaluation Date, Time and Location Date Performed: 11/18/21 Time Performed: 10:55 Patient Location: Day Surgery Unit Vital Signs Most Recent Imported Vital Signs: Most Recent Vital Signs Temp Pulse Resp BP Pulse Ox 36.3 C L 63 20 96/61 L 92 11/18/21 10:50 11/18/21 10:50 11/18/21 10:50 11/18/21 10:50 11/18/21 10:50 Pain Score Most Recent Pain Score: Most Recent Pain Score Pain Level 0 11/18/21 10:50 Assessment Mental Status: Awake (Alert & Oriented to Patient Baseline) Airway and Respiratory Function: Patent airway with normal (patient baseline) respiratory exam Cardiovascular Function: Hemodynamically Stable Hydration Status: Adequately Hydrated Nausea & Vomiting: No Nausea or Vomiting Pain: Pt. Denies Any Pain Peripheral Nerve Block: Patient did not receive a nerve block
[2021-11-18 11:16] VITALS: BP 85/52; PULSE 65; RESP 16; TEMP 36.3; O2SAT 92
[2021-11-18 11:30] VITALS: BP 102/61; PULSE 64; RESP 16; O2SAT 94
== END 2021-11-18 11:45 | disposition home or self-care (01) ==
LOC: SUR 08:54
PROVIDERS: PCP Internal Medicine; Visit Provider Surgery
PROC: 0DJD8ZZ Inspection of Lower Intestinal Tract, Via Natural or Artificial Opening Endoscopic (ICD-10-PCS; CPT 45378; principal; 2021-11-18 11:00)
DX: Z12.11 Encounter for screening for malignant neoplasm of colon (principal); Z86.010 Personal history of colon polyps; Z80.0 Family history of malignant neoplasm of digestive organs; I25.10 Atherosclerotic heart disease of native coronary artery without angina pectoris; I48.91 Unspecified atrial fibrillation; Z86.73 Personal history of transient ischemic attack (TIA), and cerebral infarction without residual deficits; K57.30 Diverticulosis of large intestine without perforation or abscess without bleeding; D12.4 Benign neoplasm of descending colon; D12.2 Benign neoplasm of ascending colon; D12.3 Benign neoplasm of transverse colon; D12.5 Benign neoplasm of sigmoid colon; K62.1 Rectal polyp
CPT/HCPCS: 45380; 88305

== ENCOUNTER → 2021-12-07 07:54 | Outpatient (BNVA) | payer MEDICARE, SELFPAY | PROVIDERS: PCP Internal Medicine; Referring Provider Internal Medicine; Visit Provider Student in an Organized Health Care Education/Training Program | DX: M65.332 Trigger finger, left middle finger (principal); M65.341 Trigger finger, right ring finger | CPT/HCPCS: 99212 ==

== ENCOUNTER 2022-01-05 11:20 | Day surgery (SDC) | payer MEDICARE, SELFPAY ==
[2022-01-05 11:42] VITALS: BP 123/75; PULSE 64; RESP 16; TEMP 36.4; O2SAT 96
--- NOTE | 2022-01-05 14:07 | PDOC.DSDIS_ITS ---
Discharge Plan Disposition Patient Disposition: HOME Condition: Good Discharge Details Reason For Visit: RRF, LMF trigger release Attending Provider: Hola Ortiz Primary Care Provider: Delonte Corral Home Meds and New Rx's Prescriptions: New acetaminophen 500 mg tablet 1,000 mg PO TID Qty: 90 0RF ibuprofen 600 mg tablet 600 mg PO TID PRN (Reason: pain) Qty: 90 0RF Continued Xarelto 20 mg tablet 20 mg PO DAILY 0RF Rx Instructions: must administer with evening meal ranolazine [Ranexa] 500 mg tablet extended release 12 hr 500 mg PO BID 0RF lansoprazole [Prevacid SoluTab] 30 mg tablet,disintegrat, delay rel 30 mg PO BID 0RF isosorbide mononitrate 120 mg tablet extended release 24 hr 120 mg PO DAILY 0RF clopidogrel [Plavix] 75 mg tablet 75 mg PO DAILY 0RF Label Comments: 07/26/19 per pt I think my last dose was Monday 07/23 but it could have been Tuesday I don't remember. sertraline 50 mg tablet 50 mg PO DAILY 0RF carvedilol 3.125 mg tablet 6.25 mg PO BID 0RF nitroglycerin [Nitrostat] 0.4 mg Tablet, Sublingual 0.4 mg sublingual Q5 MIN PRN X3 PRN (Reason: chest pain) Qty: 0 0RF Rosuvastatin Calcium 40 MG tablet 40 mg PO DAILY 0RF amlodipine 10 mg tablet 10 mg PO DAILY 0RF bupropion HCl 150 mg tablet extended release 24 hr 300 mg PO DAILY 0RF hydrocodone-acetaminophen 5-325 mg tablet 1 tab PO Q6H PRNQty: 5 0RF Discontinued acetaminophen 500 mg tablet 1,000 mg PO Q6H PRN (Reason: pain) 0RF Discharge Instructions Stand Alone Forms: Diana Matias Finger Release Referrals: Hola Ortiz MD [ [facility] STAFF PHYSICIAN] - Activity:: Activity as Tolerated Remove Dressings/Wound Care:: 48 hours Shower/Bathe:: 48 hours Diet:: As Tolerated Discharge Orders Discharge Orders: Discharge Order (Routine); Ordered 01/05/22 Ordered By: Jeremy Corado DS: Diagnosis Discharge Diagnosis (1) Trigger finger, right ring finger: Status: Acute (2) Trigger finger, left middle finger: Status: Acute
[2022-01-05] MEDS: Sodium Bicarbonate 50 MEQ/50 ML VIAL (14:21)
[2022-01-05 14:39] VITALS: BP 128/92; PULSE 65; RESP 16; TEMP 36.3; O2SAT 96
--- NOTE | 2022-01-06 21:27 | W.PM.OP ---
Date of service: 01/05/22 Time of Service: 14:00 Operative Note Operative Note DATE OF PROCEDURE: 01/05/22 PRE-OP DIAGNOSIS: Left Middle Finger and Right Ring Finger Trigger Fingers POST-OP DIAGNOSIS: same PROCEDURE: Trigger Finger Release - Left Middle and Right Ring Finger SURGEON: Hola Ortiz ANESTHESIA TYPE: Local By Surgeon Refer to Anesthesia Record ESTIMATED BLOOD LOSS: 0 PATHOLOGY: none sent COMPLICATIONS: None Patient was transported to: same day Patient's condition: stable Indications: I have seen Adams in clinic for symptoms of a trigger finger. The catching, clicking, locking, and pain limited function. The diagnosis of trigger finger was evident. The symptoms had not responded to conservative measures and he has had excellent results with previous trigger finger releases. I discussed trigger finger release with the patient. I reviewed the risks of the procedure to include, but not limited to, bleeding, infection, pain, stiffness, incomplete release, damage to nerves or vessels, continued catching, recurrence. Despite these risks, the patient elected to proceed. Findings: There was a tightened A1 shukri which was released. The flexor tendons were inspected and the patient was able to move the finger without any catching, clicking, or locking. Procedure Description: Adams was greeted in the preoperative holding area where the correct side was identified and marked. The consent was reviewed with the patient and signed. All questions were answered. He was taken back to the operating room. The patient was placed into the supine position on the operating room table with the left arm on an arm board. All bony prominences were well padded. No prophylactic antibiotics were administered since this was a clean, elective hand surgical case. The left arm was then prepped with Chloraprep and draped in a standard fashion with stockinette and extremity drape. A timeout to confirm correct identity, side and site, procedure, allergies, anesthesia, and medical concerns was performed. The surgical site was marked as a longitudinal incision directly over the A1 shukri of the involved digit. This was confirmed with palpation during finger flexion. This area, overlying the metacarpal head, was then anesthetized with 1% Lidocaine. The patient tolerated this well and once the anesthetic had setup, the procedure began. A longitudinal incision was made through skin only, approximately 1cm. The deep tissues were dissected bluntly. Once the A1 shukri and flexor tendons were identified the soft tissue including neurovascular structures were retracted medially and laterally. There were no crossing structures over the A1 shukri. The proximal edge of the shukri was identified and the shukri was incised with tenotomy scissors. There was a release of the tendons once this was fully released. The tendons were then removed from the wound and inspected. Excess synovium was resected. The tendons were then returned and the patient was asked to move the finger into deep flexion and back to extension. There was no recreation of the pre-operative symptoms. The hand was then once more inspected for any A0 shukri or area of possible constriction. The wound was then irrigated and the skin was closed with a 4-0 Nylon. This was dressed with gauze and a Conform dressing. The bed was then rotated for the contralateral side. The patient was placed into the supine position on the operating room table with the right arm on an arm board. All bony prominences were well padded. No prophylactic antibiotics were administered since this was a clean, elective hand surgical case. The right arm was then prepped with Chloraprep and draped in a standard fashion with stockinette and extremity drape. A timeout to confirm correct identity, side and site, procedure, allergies, anesthesia, and medical concerns was performed. The surgical site was marked as a longitudinal incision directly over the A1 shukri of the involved digit. This was confirmed with palpation during finger flexion. This area, overlying the metacarpal head, was then anesthetized with 1% Lidocaine. The patient tolerated this well and once the anesthetic had setup, the procedure began. A longitudinal incision was made through skin only, approximately 1cm. The deep tissues were dissected bluntly. Once the A1 shukri and flexor tendons were identified the soft tissue including neurovascular structures were retracted medially and laterally. There were no crossing structures over the A1 shukri. The proximal edge of the shukri was identified and the shukri was incised with tenotomy scissors. There was a release of the tendons once this was fully released. The tendons were then removed from the wound and inspected. Excess synovium was resected. The tendons were then returned and the patient was asked to move the finger into deep flexion and back to extension. There was no recreation of the pre-operative symptoms. The hand was then once more inspected for any A0 shukri or area of possible constriction. The wound was then irrigated and the skin was closed with a 4-0 Nylon. This was dressed with gauze and a Conform dressing. The patient tolerated the procedure well and was returned to the Same Day Surgery area in a stable condition suffering no known complication.
== END 2022-01-05 14:50 | disposition home or self-care (01) ==
PROVIDERS: PCP Internal Medicine; Visit Provider Student in an Organized Health Care Education/Training Program
PROC: (CPT 26055; principal; 2022-01-05 16:15)
DX: M65.341 Trigger finger, right ring finger (principal); M65.332 Trigger finger, left middle finger; I25.10 Atherosclerotic heart disease of native coronary artery without angina pectoris; I25.2 Old myocardial infarction; I48.91 Unspecified atrial fibrillation
CPT/HCPCS: 26055 ×2

== ENCOUNTER → 2022-01-14 07:42 | Outpatient (BNVA) | payer MEDICARE, SELFPAY | PROVIDERS: PCP Internal Medicine; Referring Provider Internal Medicine; Visit Provider Student in an Organized Health Care Education/Training Program | DX: Z47.89 Encounter for other orthopedic aftercare (principal); M65.341 Trigger finger, right ring finger; M65.332 Trigger finger, left middle finger ==

== ENCOUNTER 2022-02-17 04:38 | Emergency (ER) | payer MEDICARE, SELFPAY ==
[2022-02-17] VITALS (12 sets, daily range): BP systolic 125–131; BP diastolic 74–78; PULSE 63–80; RESP 8–19; TEMP 36.7; O2SAT 93–100
--- NOTE | 2022-02-17 04:45 | RT.EKG_ITS ---
APPROVED REPORT Exam: Resting ECG Reason for Exam: sob Patient Location: E HR:67 bpm ECG Measurements Heart Rate 67 AXIS ND 166 P 31 QRSd 103 QRS -1 QT 380 T 44 QTc 402 Conclusion Sinus rhythm...normal P axis, V-rate 60- 99 Physician: Rate 67, sinus rhythm, no significant ST elevations or depression. No evidence of STEMI. No significant change from prior EKG on 08/03/2021
--- NOTE | 2022-02-17 04:56 | ED.GENADUL_ITS ---
Discharge Plan Disposition Patient Disposition: HOME Condition: Good Discharge Details Clinical Impression: Influenza A, Bronchitis Primary Care Provider: Delonte Corral ED Provider: Fareed Guido Home Meds and New Rx's Prescriptions: New azithromycin 250 mg tablet See Rx Instructions .ROUTE .COMPLEX Qty: 6 0RF Rx Instructions: For 250 mg dose pack: take 500 mg today (day 1), then 250 mg for 4 days (days 2-5) Continued Xarelto 20 mg tablet 20 mg PO DAILY Rx Instructions: must administer with evening meal ranolazine [Ranexa] 500 mg tablet extended release 12 hr 500 mg PO BID lansoprazole [Prevacid SoluTab] 30 mg tablet,disintegrat, delay rel 30 mg PO BID isosorbide mononitrate 120 mg tablet extended release 24 hr 120 mg PO DAILY clopidogrel [Plavix] 75 mg tablet 75 mg PO DAILY Label Comments: 07/26/19 per pt I think my last dose was Monday 07/23 but it could have been Tuesday I don't remember. sertraline 50 mg tablet 50 mg PO DAILY carvedilol 3.125 mg tablet 6.25 mg PO BID nitroglycerin [Nitrostat] 0.4 mg Tablet, Sublingual 0.4 mg sublingual Q5 MIN PRN X3 PRN (Reason: chest pain) Qty: 0 0RF acetaminophen 500 mg tablet 1,000 mg PO TID Qty: 90 0RF ibuprofen 600 mg tablet 600 mg PO TID PRN (Reason: pain) Qty: 90 0RF hydrocodone-acetaminophen 5-325 mg tablet 1 tab PO TID Label Comments: TAKE 1 TABLET BY MOUTH THREE TIMES DAILY NEEDED FOR PAIN Rosuvastatin Calcium 40 MG tablet 40 mg PO DAILY amlodipine 10 mg tablet 10 mg PO DAILY bupropion HCl 150 mg tablet extended release 24 hr 300 mg PO DAILY Discharge Instructions Instructions: Influenza (ED), Acute Bronchitis (ED) Additional Instructions: At this time you demonstrate evidence of influenza. Your chest x-ray shows no evidence of pneumonia. Your laboratory work-up is stable and reassuring. Please use the inhaler that we have given you, 2 puffs every 12 hours. Please continue to drink plenty of fluids and rest at home. If you develop any green sputum that you cough up, or your cough worsens please take the antibiotic as sent to your pharmacy on file. If you notice any worsening of your symptoms, or any new symptoms such as vomiting, diarrhea, fever, chills, shortness of breath, chest pain, numbness, weakness, or fainting , please return immediately to the emergency department for reevaluation. Please follow up with your primary care provider as soon as possible for reassessment and reevaluation. As always, it was a pleasure participating in your medical care today. Referrals: Delonte Corral MD [Primary Care Provider] - Medical Decision Making 56-year-old male with history of coronary artery disease status post multiple stents, paroxysmal atrial fibrillation, left MCA stroke, GERD, renal mass status post left partial nephrectomy, ongoing tobacco use who presents today for evaluation of flulike illness. Patient states that for the last 4 to 5 days he has had mild cough, congestion, burning and tingling in his chest, mild shortness of breath, malaise, and runny nose. He states that one of his coworkers was sick with similar symptoms. Patient states that he has had his flu shot last fall, his COVID-vaccine and boosters. He admits to a cough with productive sputum but is uncertain of the color of it. He denies any hemoptysis. He denies vomiting or diarrhea. He denies any other complaints. He has been taking his blood thinner rivaroxaban and Plavix. He states that the burning in his chest feels very different than his previous cardiac heart attacks. No other modifying factors. Physical exam demonstrates well-appearing male, vital signs are notably stable. Patient's lung sounds are actually relatively clear, slightly diminishment of breath sounds throughout but no wheezes rales or rhonchi otherwise. No calf tenderness. No erythema in the posterior oropharynx. Differential is highest for influenza or COVID. Cardiac etiology much less likely. We will evaluate for concerning etiologies, gently rehydrate, get a chest x-ray, evaluate for these viruses, monitor closely and reassess. 7 AM Patient's laboratory work-up has returned, no significant white count. Troponin normal, VBG stable, electrolytes normal, renal function excellent. Chest x-ray shows no evidence of pneumonia, just mild bronchitis. Influenza A is positive, RSV, and COVID are negative. Patient felt much better after breathing treatment. Oxygenation remained stable. Patient feels better after fluid rehydration. Will give Symbicort inhaler for home use, we will give a prescription for azithromycin to use if his sputum transitions to green, or his cough worsens. Discussed red flags which to return. Symptoms inconsistent with ACS or PE. I have extensively reviewed the treatment plan and discharge instructions with the patient. I have addressed all patient concerns at this time. The patient was made aware of what symptoms to monitor for that would warrant a return to the emergency department. Discussed the plan with the patient, they demonstrate verbal understanding and agreement with our assessment and plan at this time. The documentation in this chart was dictated using [employer] dictation software. Please excuse any dictation errors. EKG 5: 01 Rate 67, sinus rhythm, no significant ST elevations or depression. No evidence of STEMI. No significant change from prior EKG on 08/03/2021 FINDINGS: Lungs: Chronic interstitial prominence. Mild peribronchial thickening not excluded No consolidation. Pleural spaces: No pleural effusion. No pneumothorax. Heart/Mediastinum: No cardiomegaly. Bones/joints: Unremarkable. IMPRESSION: Chronic findings as noted. Mild superimposed bronchitis cannot be completely excluded. No radiographic evidence for pneumonia Thank you for allowing us to participate in the care of your patient. Dictated and Authenticated by: Fede Stehpens MD 02/17/2022 6:26 AM Eastern Time ([place] & [place]) HPI General Date/Time Provider Initiated Documentation: 02/17/22 04:39 . HPI Narrative: 56-year-old male with history of coronary artery disease status post multiple stents, paroxysmal atrial fibrillation, left MCA stroke, GERD, renal mass status post left partial nephrectomy, ongoing tobacco use who presents today for evaluation of flulike illness. Patient states that for the last 4 to 5 days he has had mild cough, congestion, burning and tingling in his chest, mild shortness of breath, malaise, and runny nose. He states that one of his coworkers was sick with similar symptoms. Patient states that he has had his flu shot last fall, his COVID-vaccine and boosters. He admits to a cough with productive sputum but is uncertain of the color of it. He denies any hemoptysis. He denies vomiting or diarrhea. He denies any other complaints. He has been taking his blood thinner rivaroxaban and Plavix. He states that the burning in his chest feels very different than his previous cardiac heart a ttacks. No other modifying factors. Related Data Home Medications Medication Instructions Recorded Confirmed Rosuvastatin Calcium 40 mg PO DAILY 05/09/18 02/17/22 carvedilol 3.125 mg tablet 6.25 mg PO BID 06/14/19 02/17/22 amlodipine 10 mg tablet 10 mg PO DAILY 06/29/19 02/17/22 nitroglycerin 0.4 mg sublingual 0.4 mg sublingual Q5 MIN PRN X3 11/02/19 02/17/22 tablet (Nitrostat) PRN chest pain #0 tabs ranolazine 500 mg tablet,extended 500 mg PO BID 09/08/20 02/17/22 release,12 hr (Ranexa) rivaroxaban 20 mg tablet (Xarelto) 20 mg PO DAILY 09/08/20 02/17/22 bupropion HCl 150 mg 24 hr tablet, 300 mg PO DAILY 11/10/20 02/17/22 extended release clopidogrel 75 mg tablet (Plavix) 75 mg PO DAILY 09/29/21 02/17/22 isosorbide mononitrate 120 mg 120 mg PO DAILY 09/29/21 02/17/22 tablet,extended release 24 hr lansoprazole 30 mg delayed 30 mg PO BID 09/29/21 02/17/22 release,disintegrating tablet (Prevacid SoluTab) sertraline 50 mg tablet 50 mg PO DAILY 09/29/21 02/17/22 acetaminophen 500 mg tablet 1,000 mg PO TID #90 tabs 01/05/22 02/17/22 ibuprofen 600 mg tablet 600 mg PO TID PRN pain #90 tabs 01/05/22 02/17/22 azithromycin 250 mg tablet See Rx Instructions PO .COMPLEX #6 02/17/22 tabs hydrocodone 5 mg-acetaminophen 325 1 tab PO TID 02/17/22 02/17/22 mg tablet Previous Rx's Medication Instructions Recorded nitroglycerin 0.4 mg sublingual 0.4 mg sublingual Q5 MIN PRN X3 11/02/19 tablet (Nitrostat) PRN chest pain #0 tabs acetaminophen 500 mg tablet 1,000 mg PO TID #90 tabs 01/05/22 ibuprofen 600 mg tablet 600 mg PO TID PRN pain #90 tabs 01/05/22 azithromycin 250 mg tablet See Rx Instructions PO .COMPLEX #6 05/25/22 tabs Allergies Allergy/AdvReac Type Severity Reaction Status Date / Time oxycodone Allergy Mild unknown Verified 02/17/22 04:50 atorvastatin calcium AdvReac Intermediate liver Verified 02/17/22 04:50 [From Lipitor] problems niacin AdvReac Mild flushing Verified 02/17/22 04:50 adhesive from monitor tabs Allergy Intermediate jones Uncoded 02/17/22 04:50 General Stated Complaint: RespSymp MARQUIS: 3 Review of Systems All systems reviewed & are unremarkable except as noted in HPI and below PFSH All Active Problems (Updated 02/17/22 @ 06:54 by Fareed Guido DO) Influenza A (Acute) Bronchitis (Acute) Hyperplastic colon polyp (Acute) Tubular adenoma of colon (Acute) Encounter for colonoscopy due to history of adenomatous colonic polyps (Acute) Unstable angina (Acute) Presented with 5/10 chest pain. Pain relieved with three nitroglycerins, then placed on a nitroglycerin drip, heaprin, as well as loaded with aspirin and Plavis. [place] [facility] [place]. CAD (coronary artery disease) (Chronic 10/17/13) S/P HI x 2 in 2002. S/P PCI and stent procedures for total of six stents in the intervening 11 years. MPI at [facility] in 06/15/13, negative for ischemia. Cardiac cath in fall showed no flow-limiting lesions; no further intervention. Chest pain (Acute) newly diagnosed with Afib. Goes in and out of afib Right sided weakness (Acute) Pulmonary nodules (Chronic) Atrial fibrillation (Chronic) Stroke (Chronic) Abdominal pain (Acute) Medical History Acute epididymo-orchitis Anemia Back pain, chronic Depression with anxiety Diverticulitis Diverticulosis Dizziness Duodenal ulcer Dysesthesia Dyslipidemia Dyspepsia Erectile disorder, acquired, generalized, severe Esophagitis Gastritis Headache Hemiplegia History of kidney cancer Hx of adenomatous polyp of colon Inguinal hernia Ischemic stroke 2017 Laceration of finger of left hand Lipoma of back Muscle wasting and atrophy, not elsewhere classified, other site Occipital headache Olecranon bursitis of right elbow Penile pain Recurrent bilateral inguinal hernia Renal cell carcinoma of left kidney (10/01/16) Right elbow pain Sleep apnea Spermatocele Superficial foreign body of right elbow Tobacco use Trigger finger, right index finger Trigger finger, right middle finger Trigger thumb, left thumb Tubular adenoma of colon (08/03/17) Umbilical hernia Surgical History Bilateral carpal tunnel syndrome S/P B/L ECTR: 11/25/2020 cardiac cath 2014, 9 stents over the years since 2002. Jul or Aug was last stent put in per pt. Colonoscopy - MAC (08/03/17) 10/2021 - repeat in 5 years. EGD - MAC (08/03/17) History of back surgery partial fusion History of hernia repair History of loop recorder placed a couple months ago per pt 2018 under left chest. History of radiofrequency ablation procedure for cardiac arrhythmia Hx of appendectomy Hx of carpal tunnel repair R side Hx of tonsillectomy Olecranon bone spur s/p debridement on 07/27/2019. R elbow Partial Nephrectomy left side for renal cell cancer. Has yearly CT scan. 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 Trigger finger, left middle finger S/P Release: 01/05/2022 Trigger finger, right ring finger S/P Release: 01/05/2022 Social History Smoking/Tobacco Use Status: Current every day Tobacco Type: cigarettes Smoking packs per day: 10 Smoking cigarettes per day: 200.0 Years smoked: 46 Smoking pack-years: 460.00 Tobacco: How many years used: 47 Smoking risk assessment performed?: Yes Alcohol Intake: current Alcohol Intake frequency: a few times a month Alcohol type: beer Drug use: Never Substance use type: does not use Household members: spouse and children Housing: house Number of Children: 1 Pets and animals: Yes Pets and animals: cat(s) and dog(s) Current gender identity: male What is your relationship status?: Panel score (0-1 are the most socially isolated patients): 1 What type of physical activity do you participate in: none Seatbelt use: sometimes Do you feel safe at home: Yes Do you feel safe in your relationship?: Yes Exam Narrative Exam Narrative: 1.Const: Well-nourished, Well-developed, appearing stated age 2.Eyes: PERRL, no conjunctival injection, and symmetrical lids. 3.ENT: Atraumatic external nose and ears. Moist MM. Neck: Symmetric, trachea midline, No thyromegaly. 4.CVS: +S1/S2, No murmurs or gallops. Peripheral pulses 2+ and equal in all extremities. Brisk capillary refill in all extremities. 5.RESP: Unlabored respiratory effort. Clear to auscultation bilaterally. No wheezes rales or rhonchi 6.GI: Soft, Nontender/Nondistended, No hepatosplenomegaly. No guarding or rebound. 7.MSK: Normocephalic/Atraumatic, Extremities w/o deformity or ttp No cyanosis or clubbing, Normal movement of all extremities 8.Skin: Warm, Dry. No rashes or lesions. 9.Neuro: certified procedural coder II-XII grossly intact. Sensation grossly intact, no focal neurologic deficits. 10.Psych: (AAO) x3. Appropriate mood and affect Course Vital Signs Vital signs: Vital Signs Temperature 36.7 C 02/17/22 04:47 Pulse 80 02/17/22 04:47 Respiratory Rate 19 02/17/22 04:47 Blood Pressure 125/78 02/17/22 04:47 Pulse Oximetry 97 02/17/22 04:47 Temperature 36.7 C 02/17/22 04:47 Temperature Source Oral 02/17/22 04:47 Pulse 80 02/17/22 04:47 Respiratory Rate 19 02/17/22 04:47 Respiratory Effort 02/17/22 04:54 Respiratory Depth Normal 02/17/22 04:54 Blood Pressure 125/78 02/17/22 04:47 Blood Pressure Position Sitting 02/17/22 04:47 Pulse Oximetry 97 02/17/22 04:47 Oxygen Delivery Method Room Air 02/17/22 04:47 Oxygen Flow Rate 0 02/17/22 04:47
[2022-02-17] MEDS: Albuterol/Ipratropium 3 ML UPD VIAL UPD (05:15)
[2022-02-17] MEDS: Normal Saline 1,000 ML 1000 ML IV (05:15)
[2022-02-17 05:18] LABS: BE (Venous) -1 mmol/L (-2-3); HCO3 (Venous) 24 mmol/L (23-28); O2 Sat (Venous) 78 %; TCO2 (Venous) 21 mmol/L (24-29); pCO2 (Venous) 35 mmHg (41-51); pH (Venous) 7.44 (7.31-7.41); pO2 (Venous) 40 mmHg
[2022-02-17 05:20] LABS: Abs Immature Grans 0.02 10^3/uL (0.0-0.06); Absolute Basophil Count 0.02 10^3/uL (0.0-0.2); Absolute Eosinophil Count 0.14 10^3/uL (0.0-0.7); Absolute Lymphocyte Count 1.01 10^3/uL (1.2-3.4); Absolute Monocyte Count 0.63 10^3/uL (0.1-0.8); Absolute Neutrophil Count 5.54 10^3/uL (1.2-6.7); Basophils % 0.3; Eosinophils % 1.9; HCT 39.7 % (40.0-50.0); HGB 13.3 g/dL (13.5-17.5); Immature Grans % 0.3; Lymphocytes % 13.7; MCH 30.4 pg (27.0-33.0); MCHC 33.5 % (32.0-36.0); MCV 91 fL (80-95); MPV 9.3 fL (8.0-11.0); Monocytes % 8.6; Neutrophils % 75.2; Platelet Count 208 10^3/uL (130-400); RBC 4.37 10^6/uL (4.36-5.78); RDW 14.1 % (11.8-14.1); RDW-SD 47.8 fL; WBC 7.36 10^3/uL (4.4-10.8)
[2022-02-17 05:36] LABS: ALT 17 U/L (16-63); AST 15 U/L (15-37); Albumin 3.2 g/dL (3.4-5.0); Alkaline Phosphatase 74 U/L (46-116); Anion Gap 11.2 mmol/L (3-11); BUN 13 mg/dL (7-18); Bilirubin, Total 0.2 mg/dL (0.2-1.0); CO2 24.8 mmol/L (21.0-32.0); CREATININE 1.3 mg/dL (0.70-1.30); Calcium 8.3 mg/dL (8.5-10.1); Chloride 103 mmol/L (98-107); Glucose 216 mg/dL (74-106); Potassium 3.6 mmol/L (3.5-5.1); Sodium 139 mmol/L (136-145); Troponin I < 50 ng/L (<or=60)
--- NOTE | 2022-02-17 05:50 | DI.RAD_ITS ---
Exam(s) XR PORTABLE CHEST AP EXAM: XR PORTABLE CHEST AP CLINICAL HISTORY: cough, sob, r/o pneumonia TECHNIQUE: 2D digital imaging was performed of the chest. One image was obtained. An AP view was ob tained. COMPARISON: CR XR PORTABLE CHEST AP from 04/18/2019 CR XR CHEST 2V PA LATERAL from 01/08/2020 FINDINGS: MEDIASTINUM: Normal. HEART: Normal. PULMONARY VASCULATURE: Normal. LUNGS: No focal consolidating infiltrates. Mild stable chronic interstitial prominence. PLEURAL SPACE: No pleural effusion or pneumothorax. BONE:Within normal limits for the patient's age. OTHER FINDINGS:Normal. IMPRESSION: No findings to suggest acute pneumonia. DATA REPOSITORY: RADIATION DOSE DELIVERED:
[2022-02-17 05:57] LABS: COVID-19 PCR Negative (Negative); Influenza B PCR Negative (Negative); RSV PCR Negative (Negative)
[2022-02-17 06:00] LABS: Source Nasopharynx
[2022-02-17 06:01] LABS: Influenza A PCR Positive (Negative)
--- NOTE | 2022-02-17 06:27 | DI.VRAD_ITS ---
PROCEDURE INFORMATION: Exam: XR Chest Exam date and time: 02/17/2022 5:32 AM Age: 56 years old Clinical indication: Cough and shortness of breath; Patient HX: Cough, SOB, R/O pneumonia. TECHNIQUE: Imaging protocol: XR of the chest. Views: 1 view. COMPARISON: CT CHEST LUNG CANCER SCREEN 07/21/2020 2:38 PM FINDINGS: Lungs: Chronic interstitial prominence. Mild peribronchial thickening not excluded No consolidation. Pleural spaces: No pleural effusion. No pneumothorax. Heart/Mediastinum: No cardiomegaly. Bones/joints: Unremarkable. IMPRESSION: Chronic findings as noted. Mild superimposed bronchitis cannot be completely excluded. No radiographic evidence for pneumonia Dictated and Authenticated by: Fede Stephens MD. Ordering:GRAZYNA Guerrier MD
[2022-02-17] MEDS: Budesonide/Formoterol 160/4.5 6 GM 60 PUFF INH IH (07:20)
[2022-02-17] MEDS: Inhaler, Assist Device 1 EACH MC (07:20)
== END 2022-02-17 07:21 | disposition home or self-care (01) ==
PROVIDERS: Emergency Provider Student in an Organized Health Care Education/Training Program; PCP Internal Medicine
DX: J10.1 Influenza due to other identified influenza virus with other respiratory manifestations (principal); J20.9 Acute bronchitis, unspecified; R06.02 Shortness of breath
CPT/HCPCS: 80053; 82805; 87637; 93005; 94640; 96360; 96361; 99284; 71045; 84484; 85025; 93010; J7620

== ENCOUNTER → 2022-02-19 00:22 | Outpatient (CLI) | payer MEDICARE, SELFPAY ==
--- NOTE | 2022-02-19 10:45 | DI.CTLCSR_ITS ---
Exam(s) CT CHEST LUNG CANCER SCREEN EXAM: CT CHEST LUNG CANCER SCREEN CLINICAL HISTORY: CIGARETTE SMOKER, F17.210 TECHNIQUE: Imaging Protocol: Axial computed tomography images with coronal and sagittal reformatted images were created and reviewed COMPARISON: CT CT THORAX CTA from 01/14/2021 CR,XR XR PORTABLE CHEST AP from 02/17/2022 FINDINGS: Tracheobronchial tree: Patent where visualized. Mediastinum and Consuelo: No dominant adenopathy or fluid collection. Pulmonary parenchyma: No consolidation or dominant measurable mass. Emphysematous and fibrotic murphy es greater peripherally. Lung Nodules: Stable small bilateral pulmonary nodules, less than 5 millimeters in size, in both uppe r and lower lobes. Additional calcified nodules at the left lung base. Pleura: No effusion or pneumothorax. Heart: The heart is not dilated. Coronary artery stents and coronary artery calcifications are seen. Aorta: Thoracic aorta non-dilated. Minimal atherosclerotic changes. Upper abdomen: Unremarkable. Bones: Unremarkable for age. Soft Tissues: Unremarkable. IMPRESSION: Stable small bilateral pulmonary nodules. Category Lung RADS Cat 2 - Benign Appearance / Behavior: Nodules with a very low likelihood of becomi ng a clinically active cancer due to size or lack of growth Lung-RADS 1.0 CATEGORIES: Category 0 - Prior chest CT exam(s) being located for comparison. Category 1 - Annual screening in 12 months. No nodules or definitely benign nodules. Category 2 - Annual screening in 12 months. Benign appearance. Nodules with low likelihood of becomin g active cancer. Category 3 - 6-month follow-up. Probably benign. Short-term follow-up suggested. Nodules with low lik elihood of becoming active cancer. Category 4A - 3-month follow-up and CT/PET if >8 mm in size. Suspicious finding. Findings which requi re additional testing. Category 4B - Findings which require additional testing and tissue sampling. Category 4X - Category 3 or 4 nodules with additional features or imaging findings that increases the suspicion of malignancy. Modifier S- Potentially clinically significant findings (non lung cancer) RADIATION DOSE DELIVERED: 76.02mGy.cm Total DLP 1.84mGy CTDIvol DATA REPOSITORY: All CT scans at this facility are submitted to the National Radiology Data Registry (NRDR) Dose Index Registry (DIR) with the [employer] (A[employer]). RADIATION OPTIMIZATION: All CT scans at this facility use at least one of these dose optimization te chniques: automated exposure control; mA and/or kV adjustment per patient size (includes targeted exa ms where dose is matched to clinical indication); or iterative reconstruction.
== END ==
PROVIDERS: PCP Internal Medicine; Visit Provider Internal Medicine
DX: Z12.2 Encounter for screening for malignant neoplasm of respiratory organs (principal); F17.210 Nicotine dependence, cigarettes, uncomplicated; J43.8 Other emphysema; R91.8 Other nonspecific abnormal finding of lung field
CPT/HCPCS: 71271

== ENCOUNTER → 2022-04-15 10:47 | Outpatient (BNVA) | payer MEDICARE, SELFPAY | PROVIDERS: PCP Internal Medicine; Visit Provider Internal Medicine Cardiovascular Disease | DX: I25.10 Atherosclerotic heart disease of native coronary artery without angina pectoris (principal); I48.0 Paroxysmal atrial fibrillation; Z72.0 Tobacco use | CPT/HCPCS: 99213 ==

== ENCOUNTER → 2022-05-28 08:09 | Outpatient (BNVA) | payer MEDICARE, SELFPAY | PROVIDERS: PCP Internal Medicine; Referring Provider Internal Medicine; Visit Provider Urology | DX: R10.32 Left lower quadrant pain (principal); C64.9 Malignant neoplasm of unspecified kidney, except renal pelvis; Z85.528 Personal history of other malignant neoplasm of kidney | CPT/HCPCS: 81003; 99214 ==

== ENCOUNTER 2022-06-08 01:37 | Outpatient (CLI) | payer MEDICARE, SELFPAY ==
[2022-06-08 10:10] LABS: Estimated GFR 87.78 (mL/min/1.73m2)
--- NOTE | 2022-06-08 10:44 | DI.CT_ITS ---
Exam(s) CT ABDOMEN PELVIS WO/W EXAM: CT ABDOMEN PELVIS WO/W TECHNIQUE: Imaging Protocol: Axial computed tomography images with coronal and sagittal reformatted images were created and reviewed CONTRAST MATERIAL: Intravenous: Omnipaque 350 Contrast volume:100 cc Oral: no COMPARISON: CT CT ABDOMEN PELVIS W from 08/03/2021 CT,NM,TMT NM MPI REST STRESS GRP from 08/10/2021 FINDINGS: ABDOMEN: Lung Bases: Normal where visualized. Liver: Normal density. No measurable mass. Gallbladder and biliary tract: No radiodense calculus or dilation. Pancreas: Normal density, no abnormal calcifications or inflammatory process. Spleen: Normal. Kidneys: Right: Normal size, contour and axis. No radiodense stones or obstructive uropathy. No carmen s seen. Left: Postsurgical scarring at upper pole. Stable small area of scarring lower pole left k idney. No recurrence mass. No perinephric collection. Adrenal glands: No masses seen. Lymph nodes: Within normal limits. Abdominal Aorta: Abdominal portion non-dilated. Atherosclerotic changes. Soft tissues: PELVIS: Bladder: Symmetric distention, no gross wall thickening. Bowel: Severe diverticulosis. No evidence of diverticulitis. Muscular hypertrophy in the sigmoid re gion. No small bowel obstruction or bowel wall thickening. Peritoneal cavity: No ascites, collection or mesenteric inflammatory response. Soft tissues: Bones: Degenerative changes and scoliosis. No compression fracture. No lytic or blastic lesions. Reproductive organs: Prostate normal in size. Calcifications. IMPRESSION: Stable appearance of postsurgical scarring of the left kidney. No evidence of recurrence mass, stone or hydronephrosis. Diverticulosis. No evidence of diverticulitis. RADIATION DOSE DELIVERED: 3,263.53mGy.cm Total DLP DATA REPOSITORY: All CT scans at this facility are submitted to the National Radiology Data Registry (NRDR) Dose Index Registry (DIR) with the [employer] (ACR). RADIATION OPTIMIZATION: All CT scans at this facility use at least one of these dose optimization te chniques: automated exposure control; mA and/or kV adjustment per patient size (includes targeted exa ms where dose is matched to clinical indication); or iterative reconstruction.
[2022-06-08] MEDS: Omnipaque 350 MG/ML 100 ML BTL IJ (10:49)
== END 2022-06-08 01:57 ==
LOC: DI 01:37
PROVIDERS: PCP Internal Medicine; Visit Provider Urology
DX: C64.9 Malignant neoplasm of unspecified kidney, except renal pelvis (principal); K57.90 Diverticulosis of intestine, part unspecified, without perforation or abscess without bleeding
CPT/HCPCS: 74178; 82565; J3490

== ENCOUNTER → 2022-06-10 10:20 | Outpatient (BNVA) | payer MEDICARE, SELFPAY | PROVIDERS: PCP Internal Medicine; Referring Provider Internal Medicine; Visit Provider Nurse Practitioner Gerontology | DX: C64.9 Malignant neoplasm of unspecified kidney, except renal pelvis (principal); Z85.528 Personal history of other malignant neoplasm of kidney | CPT/HCPCS: 99215 ==

== ENCOUNTER 2022-09-08 11:58 | Outpatient (CLI) | payer MEDICARE, SELFPAY ==
--- NOTE | 2022-09-08 | DI.RAD_ITS ---
Exam(s) XR CHEST 2V PA LATERAL EXAM: XR CHEST 2V PA LATERAL CLINICAL HISTORY: LYMPHADENOPATHY R59.1 NIGHT SWEATS R61 TECHNIQUE: 2D digital imaging was performed of the chest. Three images were obtained. PA and later al views were obtained. COMPARISON: CR XR CHEST 2V PA LATERAL from 06/30/2019 CR XR CHEST 2V PA LATERAL from 01/08/2020 CR,XR XR PORTABLE CHEST AP from 02/17/2022 FINDINGS: MEDIASTINUM: Normal. HEART: Normal. PULMONARY VASCULATURE: Normal. LUNGS: There is a stable diffuse interstitial pattern in the lungs. It has a similar appearance to t he chest x-ray from 02/17/2022. No focal consolidating infiltrate is seen. PLEURAL SPACE: No pleural effusion or pneumothorax. BONE:Within normal limits for the patient's age. OTHER FINDINGS:Normal. IMPRESSION: Chronic interstitial disease. No focal consolidating infiltrate. DATA REPOSITORY: RADIATION DOSE DELIVERED:
== END 2022-09-08 12:18 ==
LOC: DI 11:59
PROVIDERS: PCP Internal Medicine; Visit Provider Family Medicine
DX: J84.9 Interstitial pulmonary disease, unspecified (principal)
CPT/HCPCS: 71046

== ENCOUNTER 2022-09-08 14:39 | Outpatient (REF) | payer MEDICARE, SELFPAY ==
[2022-09-08 14:10] LABS: Abs Immature Grans 0.04 10^3/uL (0.0-0.06); Absolute Basophil Count 0.06 10^3/uL (0.0-0.2); Absolute Eosinophil Count 0.14 10^3/uL (0.0-0.7); Absolute Monocyte Count 1.03 10^3/uL (0.1-0.8); Absolute Neutrophil Count 7.65 10^3/uL (1.2-6.7); Basophils % 0.5; Eosinophils % 1.2; HCT 40.1 % (40.0-50.0); HGB 13.6 g/dL (13.5-17.5); Immature Grans % 0.3; Lymphocytes % 23.9; MCH 31.3 pg (27.0-33.0); MCHC 33.9 % (32.0-36.0); MCV 92 fL (80-95); MPV 9.9 fL (8.0-11.0); Monocytes % 8.8; Neutrophils % 65.3; Platelet Count 316 10^3/uL (130-400); RBC 4.34 10^6/uL (4.36-5.78); RDW 13.5 % (11.8-14.1); RDW-SD 46.2 fL; WBC 11.72 10^3/uL (4.4-10.8)
[2022-09-08 14:41] LABS: ALT 18 U/L (16-63); AST 17 U/L (15-37); Albumin 3.7 g/dL (3.4-5.0); Alkaline Phosphatase 86 U/L (46-116); Anion Gap 8.4 mmol/L (3-11); BUN 15 mg/dL (7-18); Bilirubin, Total 0.3 mg/dL (0.2-1.0); CO2 28.6 mmol/L (21.0-32.0); CREATININE 1.1 mg/dL (0.70-1.30); Calcium 9.3 mg/dL (8.5-10.1); Chloride 103 mmol/L (98-107); Glucose 92 mg/dL (74-106); Potassium 4.9 mmol/L (3.5-5.1); Sodium 140 mmol/L (136-145); Total Protein 7.1 g/dL (6.4-8.2)
== END 2022-09-08 14:40 | disposition home or self-care (01) ==
LOC: NCHCN 14:39
PROVIDERS: PCP Internal Medicine; Visit Provider Family Medicine
DX: R59.1 Generalized enlarged lymph nodes (principal)
CPT/HCPCS: 80053; 85025

== ENCOUNTER → 2022-10-18 09:49 | Outpatient (BNVA) | payer MEDICARE, SELFPAY | PROVIDERS: PCP Internal Medicine; Visit Provider Internal Medicine Cardiovascular Disease | DX: I25.10 Atherosclerotic heart disease of native coronary artery without angina pectoris (principal); I48.0 Paroxysmal atrial fibrillation | CPT/HCPCS: 99214; 99213 ==

== ENCOUNTER → 2023-04-25 09:23 | Outpatient (BNVA) | payer MEDICARE, SELFPAY | PROVIDERS: PCP Internal Medicine; Visit Provider Internal Medicine Cardiovascular Disease | DX: Z79.01 Long term (current) use of anticoagulants (principal); I25.10 Atherosclerotic heart disease of native coronary artery without angina pectoris; Z72.0 Tobacco use; I48.0 Paroxysmal atrial fibrillation | CPT/HCPCS: 99214 ==

== ENCOUNTER 2023-04-25 11:38 | Outpatient (REF) | payer MEDICARE, SELFPAY ==
[2023-04-25 16:02] LABS: Calculated LDL 45 mg/dL (<100); Cholesterol 118 mg/dL (<200); HDL Cholesterol 32 mg/dL (40-60); Triglyceride 208 mg/dL (<150)
== END 2023-04-25 11:39 | disposition home or self-care (01) ==
LOC: NCHCN 11:38
PROVIDERS: PCP Internal Medicine; Visit Provider Internal Medicine
DX: I25.10 Atherosclerotic heart disease of native coronary artery without angina pectoris (principal); I48.0 Paroxysmal atrial fibrillation
CPT/HCPCS: 80061

== ENCOUNTER 2023-05-04 01:05 | Outpatient (CLI) | payer MEDICARE, SELFPAY ==
--- NOTE | 2023-05-04 07:13 | DI.CTLCSR_ITS ---
Exam(s) CT CHEST LUNG CANCER SCREEN EXAM: CT CHEST LUNG CANCER SCREEN CLINICAL HISTORY: CIGARETTE SMOKER, F17.210 TECHNIQUE: Imaging Protocol: Axial computed tomography images with coronal and sagittal reformatted images were created and reviewed. Low dose screening protocol. COMPARISON: CT CT CHEST LUNG CANCER SCREEN from 02/19/2022 FINDINGS: Tracheobronchial tree: No bronchiectasis or mucus plugging.. Mediastinum and Consuelo: No dominant adenopathy or fluid collection. Pulmonary parenchyma: No consolidation or dominant measurable mass. [id number] emphysematous ch anges greater at the upper lobes and posterior lower lobes mild fibrotic changes... Lung Nodules: Stable small bilateral scattered calcified and noncalcified nodules consistent with gra nulomas. No suspicious nodules. Pleura: No effusion. No pneumothorax. Heart: The heart is not dilated. Coronary artery stents and coronary artery calcifications are seen. Aorta: Thoracic aorta non-dilated. Atherosclerotic changes. Upper abdomen: Unremarkable. Bones: Unremarkable for age. Soft Tissues: Unremarkable. IMPRESSION: No suspicious pulmonary nodules. Lung RADS Cat 2 - Benign Appearance / Behavior: Nodules with a very low likelihood of becoming a clin ically active cancer due to size or lack of growth Lung-RADS 1.0 CATEGORIES: Category 0 - Prior chest CT exam(s) being located for comparison. Category 1 - Annual screening in 12 months. No nodules or definitely benign nodules. Category 2 - Annual screening in 12 months. Benign appearance. Nodules with low likelihood of becomin g active cancer. Category 3 - 6-month follow-up. Probably benign. Short-term follow-up suggested. Nodules with low lik elihood of becoming active cancer. Category 4A - 3-month follow-up and CT/PET if >8 mm in size. Suspicious finding. Findings which requi re additional testing. Category 4B - Findings which require additional testing and tissue sampling. Category 4X - Category 3 or 4 nodules with additional features or imaging findings that increases the suspicion of malignancy. Modifier S- Potentially clinically significant findings (non lung cancer) RADIATION DOSE DELIVERED: 93.81mGy.cm Total DLP DATA REPOSITORY: All CT scans at this facility are submitted to the National Radiology Data Registry (NRDR) Dose Index Registry (DIR) with the [employer] (ACR). RADIATION OPTIMIZATION: All CT scans at this facility use at least one of these dose optimization te chniques: automated exposure control; mA and/or kV adjustment per patient size (includes targeted exa ms where dose is matched to clinical indication); or iterative reconstruction.
== END 2023-05-04 01:25 ==
LOC: DI 01:06
PROVIDERS: PCP Internal Medicine; Visit Provider Internal Medicine
DX: F17.210 Nicotine dependence, cigarettes, uncomplicated (principal); Z12.2 Encounter for screening for malignant neoplasm of respiratory organs
CPT/HCPCS: 71271

== ENCOUNTER → 2023-06-07 14:02 | Outpatient (BNVA) | payer MEDICARE, SELFPAY | PROVIDERS: PCP Internal Medicine; Referring Provider Internal Medicine; Visit Provider Urology | DX: C64.9 Malignant neoplasm of unspecified kidney, except renal pelvis (principal) | CPT/HCPCS: 99213 ==

== ENCOUNTER 2023-06-07 16:07 | Outpatient (CLI) | payer MEDICARE, SELFPAY ==
[2023-06-07 15:28] LABS: Abs Immature Grans 0.03 10^3/uL (0.0-0.06); Absolute Basophil Count 0.07 10^3/uL (0.0-0.2); Absolute Lymphocyte Count 2.63 10^3/uL (1.2-3.4); Absolute Monocyte Count 0.72 10^3/uL (0.1-0.8); Absolute Neutrophil Count 6.47 10^3/uL (1.2-6.7); Basophils % 0.7; HCT 38.3 % (40.0-50.0); Immature Grans % 0.3; Lymphocytes % 26.2; MCH 30.2 pg (27.0-33.0); MCHC 33.9 % (32.0-36.0); MCV 89 fL (80-95); MPV 9.4 fL (8.0-11.0); Monocytes % 7.2; Neutrophils % 64.6; Platelet Count 281 10^3/uL (130-400); RBC 4.31 10^6/uL (4.36-5.78); RDW 13.3 % (11.8-14.1); RDW-SD 43.8 fL; WBC 10.02 10^3/uL (4.4-10.8)
[2023-06-07 16:43] LABS: ALT 20 U/L (16-63); AST 16 U/L (15-37); Albumin 3.4 g/dL (3.4-5.0); Alkaline Phosphatase 77 U/L (46-116); Anion Gap 9.4 mmol/L (3-11); BUN 14 mg/dL (7-18); Bilirubin, Total 0.3 mg/dL (0.2-1.0); CO2 24.6 mmol/L (21.0-32.0); CREATININE 1.3 mg/dL (0.70-1.30); Calcium 8.8 mg/dL (8.5-10.1); Chloride 104 mmol/L (98-107); Estimated GFR 63.68 (mL/min/1.73m2); Glucose 84 mg/dL (74-106); Potassium 3.6 mmol/L (3.5-5.1); Sodium 138 mmol/L (136-145); Total Protein 7.2 g/dL (6.4-8.2)
== END 2023-06-07 16:08 | disposition home or self-care (01) ==
LOC: LBO 16:09
PROVIDERS: PCP Internal Medicine; Visit Provider Urology
DX: Z85.528 Personal history of other malignant neoplasm of kidney; R10.32 Left lower quadrant pain
CPT/HCPCS: 36415; 80053; 85025

== ENCOUNTER → 2023-06-23 02:27 | Outpatient (CLI) | payer MEDICARE, SELFPAY ==
--- NOTE | 2023-06-23 07:15 | DI.CT_ITS ---
Exam(s) CT ABDOMEN PELVIS WO/W EXAM: CT ABDOMEN PELVIS WO/W CLINICAL HISTORY: f/u partial nephrectomy,renal ca,c64.9. TECHNIQUE: Imaging Protocol: Axial computed tomography images with coronal and sagittal reformatted images were created and reviewed CONTRAST MATERIAL: Intravenous: Omnipaque-350 100cc Oral: None COMPARISON: CT CT ABDOMEN PELVIS WO/W from 06/08/2022 FINDINGS: VISUALIZED LUNG BASES: There is a small 3 millimeter nodule in the lateral segment of the right middl e lobe noted on the uppermost image of this study, unchanged from CT scan of May 2022.. Calcifi ed granuloma in the left lung base again noted. ABDOMEN: There is no ascites. LIVER: Small benign 3 millimeter cyst in the medial right hepatic lobe again noted. Another small cys t or hemangioma is also noted in the right hepatic lobe, unchanged. GALLBLADDER/BILIARY: No obvious gallbladder pathology. CBD is not dilated. PANCREAS: No evidence of pancreatic mass nor dilatation of the pancreatic duct. SPLEEN: Spleen is not enlarged. No obvious intrasplenic lesions. Splenic and portal veins are paten t. ADRENALS: There are no significant adrenal masses. KIDNEYS:Right kidney remains unremarkable. Evidence of partial left nephrectomy again noted with no e vidence of recurrence or new mass in the left kidney. No calculi. No hydronephrosis.. ABDOMINAL AORTA: The abdominal aorta is atherosclerotic calcified. There is mild fusiform dilatation of the infrarenal abdominal aorta with maximum external diameter 2.6 cm. Unchanged from previous. Rebeca ac arteries are calcified but not enlarged. LYMPH NODES:There is no retroperitoneal nor paraaortic adenopathy. ABDOMINAL WALL: No evidence of significant anterior abdominal wall nor inguinal hernia. Lateral left abdominal wall mild hernia at site of prior left kidney surgery again noted, unchanged. This does not contain bowel loops. GI: There is no evidence of bowel obstruction, free air, nor abscess. PELVIS: GI: No evidence of appendicitis.Sigmoid diverticulosis but no evidence of acute diverticulitis. LYMPH NODES: There is no intrapelvic nor inguinal adenopathy. REPRODUCTIVE: Prostate size upper normal. Calcification the prostate noted. URINARY BLADDER: No obvious calculi nor mass obvious masses. OSSEOUS: No fractures and no significant osseous lesions. IMPRESSION: 1. There is continued stable appearance of the upper left kidney partial nephrectomy site but no evid ence of recurrent mass nor new mass in the left kidney and the right kidney again appears unremarkabl e. 2. Sigmoid diverticulosis again noted. No evidence of acute diverticulitis. 3. Atherosclerotic abdominal aorta again noted. RADIATION DOSE DELIVERED: 2,556.84mGy.cm Total DLP DATA REPOSITORY: All CT scans at this facility are submitted to the National Radiology Data Registry (NRDR) Dose Index Registry (DIR) with the [employer] (ACR). RADIATION OPTIMIZATION: All CT scans at this facility use at least one of these dose optimization te chniques: automated exposure control; mA and/or kV adjustment per patient size (includes targeted exa ms where dose is matched to clinical indication); or iterative reconstruction.
[2023-06-23] MEDS: Omnipaque 350 MG/ML 500 ML BTL-Imaging package 100 ML IJ (08:48)
== END ==
PROVIDERS: PCP Internal Medicine; Visit Provider Urology
DX: C64.9 Malignant neoplasm of unspecified kidney, except renal pelvis (principal)
CPT/HCPCS: 74178

== ENCOUNTER → 2023-08-02 07:38 | Outpatient (BNVA) | payer MEDICARE, SELFPAY | PROVIDERS: PCP Internal Medicine; Referring Provider Internal Medicine; Visit Provider Urology | DX: C64.2 Malignant neoplasm of left kidney, except renal pelvis (principal) | CPT/HCPCS: 99443 ==

== ENCOUNTER 2023-10-19 15:13 | Outpatient (REF) | payer MEDICARE, SELFPAY ==
[2023-10-25 15:01] LABS: Codeine Negative ng/mL (Cutoff: 25); Dihydrocodeine Negative ng/mL (Cutoff: 25); Hydrocodone Negative ng/mL (Cutoff: 25); Hydromorphone Negative ng/mL (Cutoff: 25); Morphine Negative ng/mL (Cutoff: 25); Naloxone Negative ng/mL (Cutoff: 25); Norhydrocodone Negative ng/mL (Cutoff: 25); Noroxycodone Negative ng/mL (Cutoff: 25); Noroxymorphone Negative ng/mL (Cutoff: 25); Opiates Interpretation Negative.
== END 2023-10-19 15:14 | disposition home or self-care (01) ==
LOC: NCHCN 15:13
PROVIDERS: PCP Internal Medicine; Visit Provider Family Medicine
DX: G89.29 Other chronic pain (principal)
CPT/HCPCS: 80361; 80362; 80365

== ENCOUNTER 2023-11-04 11:23 | Emergency (ER) | payer MEDICARE, SELFPAY ==
[2023-11-04] VITALS (18 sets, daily range): BP systolic 115–144; BP diastolic 73–85; PULSE 52–108; RESP 11–20; TEMP 36.6; O2SAT 90–99
--- NOTE | 2023-11-04 11:15 | RT.EKG_ITS ---
APPROVED REPORT Exam: Resting ECG Reason for Exam: Syncope Patient Location: E HR:107 bpm ECG Measurements Heart Rate 107 AXIS OK 147 P 17 QRSd 93 QRS 10 QT 328 T 98 QTc 438 Conclusion Sinus tachycardia...rate> 99 Ventricular bigeminy...bigeminy string>4 w/ V complexes sinus rhythm, normal axis, frequency PVCs
--- NOTE | 2023-11-04 11:30 | DI.RAD_ITS ---
Exam(s) XR CHEST 2V PA LATERAL EXAM: XR CHEST 2V PA LATERAL CLINICAL HISTORY: dizzy, fatigue, lightheaded. TECHNIQUE: 2D digital imaging was performed. COMPARISON: CT CT CHEST LUNG CANCER SCREEN from 02/19/2022 CR XR CHEST 2V PA LATERAL from 09/08/[address] ABDOMEN PELVIS WO/W from 06/23/2023 FINDINGS: 2 views: Heart size is normal. There appears to be endovascular stent in the left side of the heart. The med iastinum is not widened. Increased markings are seen throughout both lung bates not associated with Brit B lines, confluent infiltrates, nor pleural effusions and appearance of the lung bates exhibits minimal if any signifi cant change when compared to 09/08/2022 chest x-ray. No pleural effusions. IMPRESSION: No acute pulmonary findings.Chronic increased interstitial markings in the lung bates. No new infiltrates nor pleural effusions. DATA REPOSITORY: RADIATION DOSE DELIVERED:
--- NOTE | 2023-11-04 11:44 | W.ED.GENAD ---
HPI General Date/Time Provider Initiated Documentation: 11/04/23 11:33. HPI Narrative: 58-year-old male history of coronary disease, stroke, A-fib, presents with dizziness with spinning sensation chills slight nausea. No chest pain or shortness of breath Related Data Home Medications Medication Instructions Recorded Confirmed Rosuvastatin Calcium 40 mg PO DAILY 05/09/18 06/07/23 carvedilol 3.125 mg tablet 6.25 mg PO BID 06/14/19 06/07/23 amlodipine 10 mg tablet 10 mg PO DAILY 06/29/19 06/07/23 nitroglycerin 0.4 mg sublingual 0.4 mg sublingual Q5 MIN PRN X3 11/02/19 06/07/23 tablet (Nitrostat) PRN chest pain #0 tabs ranolazine 500 mg tablet,extended 500 mg PO BID 09/08/20 06/07/23 release,12 hr (Ranexa) rivaroxaban 20 mg tablet (Xarelto) 20 mg PO DAILY 09/08/20 06/07/23 bupropion HCl 150 mg 24 hr tablet, 300 mg PO DAILY 11/10/20 06/07/23 extended release clopidogrel 75 mg tablet (Plavix) 75 mg PO DAILY 09/29/21 06/07/23 isosorbide mononitrate 120 mg 120 mg PO DAILY 09/29/21 06/07/23 tablet,extended release 24 hr lansoprazole 30 mg delayed 30 mg PO BID 09/29/21 06/07/23 release,disintegrating tablet (Prevacid SoluTab) sertraline 50 mg tablet 50 mg PO DAILY 09/29/21 06/07/23 acetaminophen 500 mg tablet 1,000 mg (2 x 500 mg) PO TID #90 01/05/22 06/07/23 tabs ibuprofen 600 mg tablet 600 mg PO TID PRN pain #90 tabs 01/05/22 06/07/23 hydrocodone 5 mg-acetaminophen 325 1 tab PO TID 02/17/22 06/07/23 mg tablet Previous Rx's Medication Instructions Recorded nitroglycerin 0.4 mg sublingual 0.4 mg sublingual Q5 MIN PRN X3 11/02/19 tablet (Nitrostat) PRN chest pain #0 tabs acetaminophen 500 mg tablet 1,000 mg (2 x 500 mg) PO TID #90 01/05/22 tabs ibuprofen 600 mg tablet 600 mg PO TID PRN pain #90 tabs 01/05/22 Allergies Allergy/AdvReac Type Severity Reaction Status Date / Time oxycodone Allergy Mild unknown Verified 04/25/23 09:38 atorvastatin calcium AdvReac Intermediate liver Verified 04/25/23 09:38 [From Lipitor] problems niacin AdvReac Mild flushing Verified 04/25/23 09:38 adhesive from monitor tabs Allergy Intermediate jones Uncoded 04/25/23 09:38 General Stated Complaint: Dizzy/Sync MARQUIS: 3 Review of Systems Narrative: Review of Systems Constitutional: Fatigue Eyes: negative ENT: negative Cardiovascular: negative Respiratory: negative Gastrointestinal: Nausea : negative Musculoskeletal: negative Skin: negative Neurologic: Dizziness Psych: negative Exam Narrative Exam Narrative: Physical Examination General: alert, awake, cooperative, resting comfortably, no acute distress HEENT: normocephalic, atraumatic; PERRL, EOM intact, conjunctiva normal; no nasal discharge; slight drying of oral mucosa Neck: supple, trachea midline; full ROM Chest: normal to inspection Respiratory: normal respiratory effort, speaking in full sentences, clear to auscultation, no wheezing, rales or rhonchi Cardiac: regular rate, regular rhythm, S1S2 intact, no murmurs rubs or gallops GI: abdomen soft, non-tender, non-distended; no palpable mass or hepatosplenomegaly Skin: no lesions, rashes or trauma appreciated; slightly dry Neuro: AAOx3, normal speech, moving all extremities; cranial nerves II through XII intact 5-5 strength upper lower extremities bilaterally, no truncal ataxia Extremities: Mild edema bilateral ankles Psych: Appropriate mood and affect Course Vital Signs Vital signs: Vital Signs Temperature 36.6 C 11/04/23 11:27 Pulse 59 L 11/04/23 11:27 Respiratory Rate 20 11/04/23 11:27 Blood Pressure 144/80 H 11/04/23 11:27 Pulse Oximetry 95 11/04/23 11:27 Temperature 36.6 C 11/04/23 11:27 Temperature Source Oral 11/04/23 11:27 Pulse 59 L 11/04/23 11:27 Respiratory Rate 20 11/04/23 11:27 Blood Pressure 144/80 H 11/04/23 11:27 Blood Pressure Position Sitting 11/04/23 11:27 Pulse Oximetry 95 11/04/23 11:27 Oxygen Delivery Method Room Air 11/04/23 11:27 Oxygen Flow Rate 0 11/04/23 11:27 Medical Decision Making 58-year-old male history of coronary disease, stroke, A-fib, presents with lightheadedness fatigue dizziness world spinning sensation since 430 this morning; denies chest pain or shortness of breath. Appears slightly dry with dry oral mucosa dry skin, mild edema to bilateral ankles, no respiratory distress, cranial nerves intact, nonfocal strength and sensory exam, no ataxia. Consider viral illness with dehydration for electrolyte derangement versus peripheral vertigo versus ACS versus CVA, trial of fluids meds CT angio head neck, chest x-ray, EKG sinus rhythm with frequent PVCs. 14: 18 resting comfortably feeling better after fluids. Labs and imaging unremarkable. Home care instructions and return precautions given Quality:SDOH Health Related Social Needs: No Data to Display [facility] All Active Problems (Updated 11/04/23 @ 14:21 by Bigg Coyle MD) Lightheaded (Acute) Kidney malignancy (Chronic) Hyperplastic colon polyp (Acute) Tubular adenoma of colon (Acute) Encounter for colonoscopy due to history of adenomatous colonic polyps (Acute) Unstable angina (Acute) Presented with 5/10 chest pain. Pain relieved with three nitroglycerins, then placed on a nitroglycerin drip, heaprin, as well as loaded with aspirin and Plavis. Transferred to [facility] further therapy. CAD (coronary artery disease) (Chronic 10/17/13) S/P [place] x 2 in 2002. S/P PCI and stent procedures for total of six stents in the intervening 11 years. MPI at [facility] in 06/15/13, negative for ischemia. Cardiac cath in fall of 2011 showed no flow-limiting lesions; no further intervention. Chest pain (Acute) newly diagnosed with Afib. Goes in and out of afib Right sided weakness (Acute) Pulmonary nodules (Chronic) Atrial fibrillation (Chronic) Stroke (Chronic) Abdominal pain (Acute) Medical History Acute epididymo-orchitis Anemia Back pain, chronic Depression with anxiety Diverticulitis Diverticulosis Dizziness Duodenal ulcer Dysesthesia Dyslipidemia Dyspepsia Erectile disorder, acquired, generalized, severe Esophagitis Gastritis Headache Hemiplegia History of kidney cancer Hx of adenomatous polyp of colon Inguinal hernia Ischemic stroke 2017 Laceration of finger of left hand Lipoma of back Muscle wasting and atrophy, not elsewhere classified, other site Occipital headache Olecranon bursitis of right elbow Penile pain Recurrent bilateral inguinal hernia Renal cell carcinoma of left kidney (10/01/16) Right elbow pain Sleep apnea Spermatocele Superficial foreign body of right elbow Tobacco use Trigger finger, right index finger Trigger finger, right middle finger Trigger thumb, left thumb Tubular adenoma of colon (08/03/17) Umbilical hernia Surgical History Bilateral carpal tunnel syndrome S/P B/L ECTR: 11/25/2020 cardiac cath 2014, 9 stents over the years since 2002. Jul or Aug was last stent put in per pt. Colonoscopy - MAC (08/03/17) 10/2021 - repeat in 5 years. EGD - MAC (08/03/17) History of back surgery partial fusion History of hernia repair History of loop recorder placed a couple months ago per pt 2019 under left chest. History of radiofrequency ablation procedure for cardiac arrhythmia Hx of appendectomy Hx of carpal tunnel repair R side Hx of tonsillectomy Olecranon bone spur s/p debridement on 07/27/2019. R elbow Partial Nephrectomy left side for renal cell cancer. Has yearly CT scan. 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 Trigger finger, left middle finger S/P Release: 01/05/2022 Trigger finger, right ring finger S/P Release: 01/05/2022 Social History Smoking/Tobacco Use Status: Current every day Tobacco Type: cigarettes Smoking packs per day: 10 Smoking cigarettes per day: 200.0 Years smoked: 46 Smoking pack-years: 460.00 Tobacco: How many years used: 47 Smoking risk assessment performed?: Yes Alcohol Intake: current Alcohol Intake frequency: a few times a month Alcohol type: beer Drug use: Never Substance use type: does not use Household members: spouse and children Housing: house Number of Children: 1 Pets and animals: Yes Pets and animals: cat(s) and dog(s) Current gender identity: male What is your relationship status?: Panel score (0-1 are the most socially isolated patients): 1 What type of physical activity do you participate in: none Seatbelt use: sometimes Do you feel safe at home: Yes Do you feel safe in your relationship?: Yes Discharge Plan Disposition Patient Disposition: Home Condition: Improving Discharge Details Chief Complaint: Dizzy/Sync Clinical Impression: Lightheaded Primary Care Provider: Delonte Corral ED Provider: Bigg Coyle Home Meds and New Rx's Prescriptions: No Action Xarelto 20 mg tablet 20 mg PO DAILY Rx Instructions: must administer with evening meal ranolazine [Ranexa] 500 mg tablet extended release 12 hr 500 mg PO BID lansoprazole [Prevacid SoluTab] 30 mg tablet,disintegrat, delay rel 30 mg PO BID isosorbide mononitrate 120 mg tablet extended release 24 hr 120 mg PO DAILY clopidogrel [Plavix] 75 mg tablet 75 mg PO DAILY Patient Comments: 07/26/19 per pt I think my last dose was Monday 07/23 but it could have been Tuesday I don't remember. sertraline 50 mg tablet 50 mg PO DAILY carvedilol 3.125 mg tablet 6.25 mg PO BID nitroglycerin [Nitrostat] 0.4 mg Tablet, Sublingual 0.4 mg sublingual Q5 MIN PRN X3 PRN (Reason: chest pain) Qty: 0 0RF acetaminophen 500 mg tablet 1,000 mg PO TID Qty: 90 0RF ibuprofen 600 mg tablet 600 mg PO TID PRN (Reason: pain) Qty: 90 0RF hydrocodone-acetaminophen 5-325 mg tablet 1 tab PO TID Patient Comments: TAKE 1 TABLET BY MOUTH THREE TIMES DAILY NEEDED FOR PAIN Rosuvastatin Calcium 40 MG tablet 40 mg PO DAILY amlodipine 10 mg tablet 10 mg PO DAILY bupropion HCl 150 mg tablet extended release 24 hr 300 mg PO DAILY Discharge Instructions Instructions: Near Syncope (ED)
[2023-11-04 11:56] LABS: Abs Immature Grans 0.03 10^3/uL (0.0-0.06); Absolute Basophil Count 0.05 10^3/uL (0.0-0.2); Absolute Eosinophil Count 0.13 10^3/uL (0.0-0.7); Absolute Lymphocyte Count 2.36 10^3/uL (1.2-3.4); Absolute Monocyte Count 0.92 10^3/uL (0.1-0.8); Absolute Neutrophil Count 6.04 10^3/uL (1.2-6.7); Basophils % 0.5; Eosinophils % 1.4; HCT 37.6 % (40.0-50.0); HGB 12.8 g/dL (13.5-17.5); Immature Grans % 0.3; Lymphocytes % 24.8; MCH 29.7 pg (27.0-33.0); MCV 87 fL (80-95); MPV 9.1 fL (8.0-11.0); Monocytes % 9.7; Neutrophils % 63.3; Platelet Count 263 10^3/uL (130-400); RBC 4.31 10^6/uL (4.36-5.78); RDW 14.1 % (11.8-14.1); RDW-SD 45.5 fL; WBC 9.53 10^3/uL (4.4-10.8)
[2023-11-04] MEDS: Ondansetron 4 MG/2 ML VIAL IVP (11:59)
[2023-11-04] MEDS: ACETAMINOPHEN 1,000 MG/100 ML BTL 400 MG IVPB (12:02)
[2023-11-04 12:11] LABS: INR 1.5 (0.9-1.1); PTT Activated 47.7 sec (23.6-32.8); Prothrombin Time 14.3 sec (9.1-11.1)
[2023-11-04 12:23] LABS: ALT 18 U/L (16-63); AST 12 U/L (15-37); Albumin 3.3 g/dL (3.4-5.0); Alkaline Phosphatase 72 U/L (46-116); Anion Gap 10.3 mmol/L (3-11); BUN 18 mg/dL (7-18); Bilirubin, Total 0.4 mg/dL (0.2-1.0); CO2 24.7 mmol/L (21.0-32.0); CREATININE 1.3 mg/dL (0.70-1.30); Calcium 8.8 mg/dL (8.5-10.1); Chloride 103 mmol/L (98-107); Estimated GFR 63.28 (mL/min/1.73m2); Glucose 83 mg/dL (74-106); Lipase 32 U/L (16-77); Magnesium 1.9 mg/dL (1.8-2.4); NT-proBNP 331 pg/mL (<300); Potassium 4.1 mmol/L (3.5-5.1); Sodium 138 mmol/L (136-145); TSH (W/Ref FT4) 1.37 uIU/mL (0.36-3.74); Troponin I < 50 ng/L (< or =60)
[2023-11-04 12:24] LABS: ETHANOL BLOOD < 3.0 mg/dL (<10)
[2023-11-04] MEDS: Dexamethasone 10 MG/ML VIAL IVP (12:47)
[2023-11-04] MEDS: Normal Saline 1,000 ML 1000 ML IV (12:47)
[2023-11-04] MEDS: Normal Saline - Diluent 50 ML VIAL IJ (13:03)
[2023-11-04] MEDS: Omnipaque 350 MG/ML 500 ML BTL-Imaging package 100 ML IJ (13:05)
[2023-11-04 13:09] LABS: Bilirubin Negative (Negative); Blood Negative (Negative); Clarity Clear (Clear); Glucose Negative (Negative); Ketones Negative (Negative); Leukocyte Esterase Negative (Negative); Nitrite Negative (Negative); Specific Gravity 1.015 (1.005-1.025); Urobilinogen 0.2 mg/dL (Up to 0.2); pH 5.5 (5-8)
--- NOTE | 2023-11-04 13:10 | DI.CT_ITS ---
Exam(s) CT BRAIN NECK CTA EXAM: CT BRAIN NECK CTA CLINICAL HISTORY: dizziness, spinning sensation, hx stroke. TECHNIQUE: Imaging Protocol: Axial CT angiography was performed with multi-slice acquisition and mu lti-planar and/or 3D reconstructions. CONTRAST MATERIAL: Intravenous: Omnipaque 350 Contrast volume:structured data in ml COMPARISON: CT CT ABDOMEN PELVIS WO/W from 06/23/2023 FINDINGS: CTA Neck W: Aortic arch anatomy: The aortic arch anatomy is conventional and there is no significant stenosis at the origin of the great vessels off of the aortic arch. No intimal flap evident. Anterior circulation: Both common carotid arteries ascend with normal luminal diameters. The level the carotid bulbs and proximal ICAs there is some calcified and noncalcified plaque, slight ly more so on the left side. There is approximately 20 percent stenosis on the left side and approxi mately 10 percent stenosis on the right side. The internal carotid arteries above this level in the upper neck are patent and non tortuous and are also demonstrated to be patent in the skull base. Posterior circulation: Both vertebral arteries originate in conventional fashion off of the subclavian arteries and there is no obvious stenosis at the origin of the vertebral arteries. Both vertebral arteries exhibit normal luminal diameters within the foramen transversarium. No signi ficant stenosis nor dissection. Both vertebral arteries contribute to the formation of the basilar artery at the skull base. CTA Brain W: Anterior circulation: Both internal carotid arteries are patent in the skull base-carotid canals as well as within the cave rnous sinuses. The supraclinoid aspects of the ICAs are patent. Both A1 segments are patent as are the anterior cer ebral arteries and there is no evidence of aneurysm at the level of the anterior communicating artery . Both middle cerebral arteries are patent with no evidence of significant stenosis nor intraluminal th rombus. There also no aneurysms of these vessels. Posterior circulation: The basilar artery ascends in the midline. Distally the basilar artery terminates as patent right po sterior cerebral artery. The left posterior cerebral artery is fed by posterior communicating artery on the left side of the [id number]. There is no evidence of aneurysm at the tip of the basilar artery nor elsewhere in the [id number] is. CT BRAIN: There is no evidence of intracranial hemorrhage, mass effect, or shift of midline structures. There are no extra-axial fluid collections. Ventricles are not enlarged or shifted. There are no ring enh ancing lesions in the brain and no abnormal meningeal enhancement. Mucosal thickening noted in the left maxillary sinus, not associated with fluid level. Other paranas al sinuses are clear. IMPRESSION: 1. There is mild plaque at the carotid bifurcation and proximal ICAs in the neck. Approximately 20 p ercent stenosis on the left side and 10 percent stenosis on the right side. 2. Patent vertebral arteries. Both contribute to the formation of the basilar artery at the skull ba se. 3. Patent intracranial arteries. 4. No acute intracranial findings. RADIATION DOSE DELIVERED: 2,159.72mGy.cm Total DLP DATA REPOSITORY: All CT scans at this facility are submitted to the National Radiology Data Registry (NRDR) Dose Index Registry (DIR) with the [employer] (ACR). RADIATION OPTIMIZATION: All CT scans at this facility use at least one of these dose optimization te chniques: automated exposure control; mA and/or kV adjustment per patient size (includes targeted exa ms where dose is matched to clinical indication); or iterative reconstruction.
== END 2023-11-04 14:53 | disposition home or self-care (01) ==
LOC: ER 14:44
PROVIDERS: Emergency Provider Emergency Medicine; PCP Internal Medicine
DX: R42 Dizziness and giddiness (principal); I48.91 Unspecified atrial fibrillation; I25.10 Atherosclerotic heart disease of native coronary artery without angina pectoris; F17.210 Nicotine dependence, cigarettes, uncomplicated; Z86.73 Personal history of transient ischemic attack (TIA), and cerebral infarction without residual deficits; Z95.5 Presence of coronary angioplasty implant and graft; Z79.02 Long term (current) use of antithrombotics/antiplatelets; Z79.899 Other long term (current) drug therapy
CPT/HCPCS: 36415; 70496; 70498; 80053; 83690; 93005; 96361; 96374; 96375; 99285; 71046; 80320; 81003; 83735; 83880; 84443; 84484; 85025; 85610; 85730; 93010; 99284; J0131; J1100; J2405

== ENCOUNTER 2024-04-01 12:43 | Emergency (ER) | payer MEDICARE, SELFPAY ==
[2024-04-01] VITALS (18 sets, daily range): BP systolic 99–141; BP diastolic 66–87; PULSE 57–73; RESP 10–20; TEMP 36.2; O2SAT 90–99
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
[2024-04-01] MEDS: Normal Saline 1,000 ML 1000 ML IV (12:50)
[2024-04-01 13:03] LABS: Abs Immature Grans 0.03 10^3/uL (0.0-0.06); Absolute Basophil Count 0.05 10^3/uL (0.0-0.2); Absolute Eosinophil Count 0.11 10^3/uL (0.0-0.7); Absolute Lymphocyte Count 2.43 10^3/uL (1.2-3.4); Absolute Monocyte Count 0.52 10^3/uL (0.1-0.8); Absolute Neutrophil Count 5.05 10^3/uL (1.2-6.7); Basophils % 0.6 %; Eosinophils % 1.3 %; HCT 38.7 % (40.0-50.0); HGB 13.2 g/dL (13.5-17.5); Immature Grans % 0.4 %; Lymphocytes % 29.7 %; MCH 30.5 pg (27.0-33.0); MCHC 34.1 % (32.0-36.0); MCV 89 fL (80-95); Monocytes % 6.3 %; Neutrophils % 61.7 %; Platelet Count 261 10^3/uL (130-400); RBC 4.33 10^6/uL (4.36-5.78); RDW 13.5 % (11.8-14.1); RDW-SD 44.5 fL; WBC 8.19 10^3/uL (4.4-10.8)
[2024-04-01] MEDS: Normal Saline - Diluent 50 ML VIAL IJ (13:13)
[2024-04-01] MEDS: Normal Saline Flush 10 ML SYR IVP (13:14)
[2024-04-01] MEDS: Omnipaque 350 MG/ML 100 ML BTL IJ (13:15)
[2024-04-01 13:16] LABS: ALT 19 U/L (16-63); AST 14 U/L (15-37); Albumin 3.2 g/dL (3.4-5.0); Alkaline Phosphatase 81 U/L (46-116); Anion Gap 11.2 mmol/L (3-11); BUN 13 mg/dL (7-18); Bilirubin, Total 0.21 mg/dL (0.2-1.0); CO2 22.8 mmol/L (21.0-32.0); CREATININE 1.2 mg/dL (0.70-1.30); Calcium 8.5 mg/dL (8.5-10.1); Chloride 103 mmol/L (98-107); Estimated GFR 69.66 (mL/min/1.73m2); Glucose 103 mg/dL (74-106); Lipase 40 U/L (16-77); Sodium 137 mmol/L (136-145); Total Protein 6.8 g/dL (6.4-8.2)
[2024-04-01 13:31] LABS: INR 1.5 (0.9-1.1); Prothrombin Time 14.6 sec (9.1-11.1)
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
--- NOTE | 2024-04-01 14:02 | DI.CT_ITS ---
Exam(s) CT THORACIC LUMBAR SPINE REC EXAM: CT THORACIC LUMBAR SPINE REC CLINICAL HISTORY: paresthesias RLE, weakness TECHNIQUE: COMPARISON: CT CT CHEST/ABD/PEL W from 04/01/2024 FINDINGS: THORACIC SPINAL COLUMN: No evidence of acute fractures nor listhesis nor facet joint malalignment. N o acute compromise of the thoracic spinal column. LUMBOSACRAL SPINAL COLUMN: No evidence of acute fractures nor listhesis. Disc space narrowing at eac h level with the exception of L5-S1 which is related to partial developmental sacralization of the L5 segment. There is evidence of previous surgery (no hardware). Multilevel right-sided partial ambrose ectomies evident. Multilevel facet arthropathy. There is multilevel spinal canal stenosis at each level. This involves T12-L1, L1-2, L2-3 and L3-4 l evels; less so at L4-5 and L5-S1 levels. The spinal canal stenosis due to broad annular bulging at t hese levels, short AP dimensions of the pedicles, and some facet joint degenerative changes. IMPRESSION: No acute fractures nor listhesis. Evidence of previous right-sided surgery in the lower lumbar spine. Multilevel spinal canal stenosis in the lower thoracic and lumbar spines noted. Report called by myself to ER provider 04/01/2024 at 16:05 p.m.
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
== END 2024-04-01 15:17 | disposition home or self-care (01) ==
PROVIDERS: Emergency Provider Physician Assistant; PCP Family Medicine
DX: M25.561 Pain in right knee (principal); S46.911A Strain of unspecified muscle, fascia and tendon at shoulder and upper arm level, right arm, initial encounter; R40.2412 Glasgow coma scale score 13-15, at arrival to emergency department; I25.10 Atherosclerotic heart disease of native coronary artery without angina pectoris; I48.91 Unspecified atrial fibrillation; F17.210 Nicotine dependence, cigarettes, uncomplicated; Z95.5 Presence of coronary angioplasty implant and graft; Z86.73 Personal history of transient ischemic attack (TIA), and cerebral infarction without residual deficits; Z79.01 Long term (current) use of anticoagulants; Z79.02 Long term (current) use of antithrombotics/antiplatelets; V23.49XA Other motorcycle driver injured in collision with car, pick-up truck or van in traffic accident, initial encounter; Y92.410 Unspecified street and highway as the place of occurrence of the external cause
CPT/HCPCS: 00123; 74177; 76604; 76705; 76857; 80053; 81025; 83690; 86850; 86900; 86901; 96360; 96361; 99285; 70450; 71260; 72125; 81003; 85025; 85610; J3490

== ENCOUNTER → 2024-07-09 07:43 | Outpatient (BNVA) | payer MEDICARE, SELFPAY | PROVIDERS: PCP Family Medicine; Visit Provider Nurse Practitioner Gerontology | DX: Z85.528 Personal history of other malignant neoplasm of kidney (principal); M54.89 Other dorsalgia | CPT/HCPCS: 99213 ==

== ENCOUNTER 2024-07-24 03:05 | Outpatient (CLI) | payer MEDICARE, SELFPAY ==
[2024-07-24 08:54] LABS: Abs Immature Grans 0.03 10^3/uL (0.0-0.06); Absolute Basophil Count 0.04 10^3/uL (0.0-0.2); Absolute Lymphocyte Count 2.16 10^3/uL (1.2-3.4); Absolute Neutrophil Count 7.25 10^3/uL (1.2-6.7); Basophils % 0.4 %; HCT 39.4 % (40.0-50.0); HGB 13.1 g/dL (13.5-17.5); Immature Grans % 0.3 %; MCH 30.3 pg (27.0-33.0); MCHC 33.2 % (32.0-36.0); MCV 91 fL (80-95); MPV 8.7 fL (8.0-11.0); Monocytes % 6.8 %; Neutrophils % 70.5 %; Platelet Count 267 10^3/uL (130-400); RBC 4.32 10^6/uL (4.36-5.78); RDW 13.8 % (11.8-14.1); RDW-SD 46.8 fL; WBC 10.28 10^3/uL (4.4-10.8)
[2024-07-24 09:39] LABS: ALT 18 U/L (16-63); AST 16 U/L (15-37); Albumin 3.3 g/dL (3.4-5.0); Alkaline Phosphatase 87 U/L (46-116); Anion Gap 10.8 mmol/L (3-11); BUN 14 mg/dL (7-18); Bilirubin, Total 0.25 mg/dL (0.2-1.0); CO2 26.2 mmol/L (21.0-32.0); CREATININE 1.3 mg/dL (0.70-1.30); Calcium 9.4 mg/dL (8.5-10.1); Chloride 103 mmol/L (98-107); Estimated GFR 63.28 (mL/min/1.73m2); Glucose 122 mg/dL (74-106); Potassium 4.3 mmol/L (3.5-5.1); Sodium 140 mmol/L (136-145); Total Protein 7.2 g/dL (6.4-8.2)
[2024-07-24 18:43] LABS: PSA, Diagnostic 0.5 ng/mL (<=3.5)
== END 2024-07-24 03:06 | disposition home or self-care (01) ==
LOC: LBO 03:05
PROVIDERS: PCP Family Medicine; Visit Provider Urology
DX: N41.9 Inflammatory disease of prostate, unspecified (principal); C64.9 Malignant neoplasm of unspecified kidney, except renal pelvis
CPT/HCPCS: 36415; 80053; 84153; 85025

== ENCOUNTER → 2024-07-31 08:09 | Outpatient (BNVA) | payer MEDICARE, SELFPAY | PROVIDERS: PCP Family Medicine; Referring Provider Internal Medicine; Visit Provider Urology | DX: N40.1 Benign prostatic hyperplasia with lower urinary tract symptoms (principal); N13.8 Other obstructive and reflux uropathy; Z85.528 Personal history of other malignant neoplasm of kidney; N41.9 Inflammatory disease of prostate, unspecified | CPT/HCPCS: 99214 ==

== ENCOUNTER 2024-08-02 18:11 | Emergency (ER) | payer MEDICARE, SELFPAY ==
[2024-08-02 18:16] VITALS: BP 133/80; PULSE 66; RESP 18; TEMP 36.2; O2SAT 99
[2024-08-02] MEDS: Tetracaine 0.5% 4 ML BTL OP (18:36)
[2024-08-02] MEDS: Fluorescein STRIPS 100/BOX 1 MG OP (18:36)
[2024-08-02] MEDS: Erythromycin Ophth Oint 3.5 GM TUBE OD (19:02)
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
== END 2024-08-02 19:08 | disposition home or self-care (01) ==
PROVIDERS: Emergency Provider Physician Assistant; PCP Family Medicine
DX: S05.01XA Injury of conjunctiva and corneal abrasion without foreign body, right eye, initial encounter (principal); I25.110 Atherosclerotic heart disease of native coronary artery with unstable angina pectoris; I48.91 Unspecified atrial fibrillation; F17.210 Nicotine dependence, cigarettes, uncomplicated; Z95.5 Presence of coronary angioplasty implant and graft; Z79.01 Long term (current) use of anticoagulants; Z79.02 Long term (current) use of antithrombotics/antiplatelets; X58.XXXA Exposure to other specified factors, initial encounter; Z86.73 Personal history of transient ischemic attack (TIA), and cerebral infarction without residual deficits
CPT/HCPCS: 99283

== ENCOUNTER 2024-08-05 10:00 | Emergency (ER) | payer MEDICARE, SELFPAY ==
[2024-08-05 10:06] VITALS: BP 128/84; PULSE 65; RESP 20; TEMP 36.8; O2SAT 98
--- NOTE | 2024-08-05 10:30 | DI.CT_ITS ---
Exam(s) CT ABDOMEN PELVIS W EXAM: CT ABDOMEN PELVIS W CLINICAL HISTORY: Abdominal pain, Hx of CA, Weight loss TECHNIQUE: Imaging Protocol: Axial computed tomography images with coronal and sagittal reformatted images were created and reviewed. CONTRAST MATERIAL: Intravenous: Omnipaque 350 Contrast volume:100 mL Oral: No COMPARISON: CT CT ABDOMEN PELVIS WO/W from 06/23/[address] CHEST/ABD/PEL W from 04/01/[address] THORACIC LUMBAR SPINE REC from 04/01/2024 FINDINGS: ABDOMEN: Lung Bases: Coronary artery calcifications are present. There is a calcified granuloma in the left l ower lobe. Stable right middle lobe pulmonary nodule. Atelectasis in the lower lobes bilaterally. Liver: Normal density. Tiny cysts in the liver. No suspicious hepatic mass. Portal, Superior Mesenteric, and Splenic Veins: Unremarkable. Gallbladder and Biliary Tract: No radiodense calculus or dilation. Pancreas: Normal density, no abnormal calcifications or inflammatory process. Spleen: Normal. Adrenals: No masses seen. Kidneys: Stable postsurgical changes of the left kidney consistent with a prior partial nephrectomy. No radiodense stones or obstructive uropathy. No masses seen. Abdominal Aorta: Abdominal portion non-dilated. Atherosclerosis is present. Bowel: There is diverticulosis of the colon. There is bowel wall thickening seen in the proximal and mid sigmoid colon with surrounding inflammation suggesting acute diverticulitis. There is no eviden ce of bowel obstruction. No evidence of appendicitis. Peritoneal Cavity: No ascites, collection or mesenteric inflammatory response. No free air. Lymph Nodes: Within normal limits. Bones: Within normal limits for the patient's age. There is a left convex lumbar scoliosis. Soft Tissues: There is fatty atrophy of the paraspinal muscles seen in the lumbar and sacral region. PELVIS: Bladder: Urinary bladder is incompletely distended but no gross abnormalities identified. Reproductive Organs: Prostatic calcifications are seen. Lymph Nodes: Within normal limits. Bones: Within normal limits for the patient's age. IMPRESSION: 1. Findings suggestive of acute diverticulitis small in the sigmoid colon. No abscess or free air. In this patient, a follow-up barium enema or colonoscopy is recommended to exclude underlying lesion. 2. Stable postsurgical changes involving the left kidney. RADIATION DOSE DELIVERED: 633.35mGy.cm Total DLP DATA REPOSITORY: All CT scans at this facility are submitted to the National Radiology Data Registry (NRDR) Dose Index Registry (DIR) with the [employer] ([employer]). RADIATION OPTIMIZATION: All CT scans at this facility use at least one of these dose optimization te chniques: automated exposure control; mA and/or kV adjustment per patient size (includes targeted exa ms where dose is matched to clinical indication); or iterative reconstruction.
[2024-08-05 10:36] LABS: Abs Immature Grans 0.03 10^3/uL (0.0-0.06); Absolute Basophil Count 0.02 10^3/uL (0.0-0.2); Absolute Eosinophil Count 0.04 10^3/uL (0.0-0.7); Absolute Lymphocyte Count 1.77 10^3/uL (1.2-3.4); Absolute Monocyte Count 0.62 10^3/uL (0.1-0.8); Absolute Neutrophil Count 4.99 10^3/uL (1.2-6.7); Basophils % 0.3 %; Eosinophils % 0.5 %; HCT 39.9 % (40.0-50.0); HGB 13.4 g/dL (13.5-17.5); Immature Grans % 0.4 %; Lymphocytes % 23.7 %; MCH 30.5 pg (27.0-33.0); MCHC 33.6 % (32.0-36.0); MCV 91 fL (80-95); MPV 9.1 fL (8.0-11.0); Monocytes % 8.3 %; Neutrophils % 66.8 %; Platelet Count 262 10^3/uL (130-400); RBC 4.39 10^6/uL (4.36-5.78); RDW 13.8 % (11.8-14.1); RDW-SD 46.5 fL; WBC 7.47 10^3/uL (4.4-10.8)
--- NOTE | 2024-08-05 10:36 | W.ED.GENAD ---
Discharge Plan Disposition Patient Disposition: Home Condition: Stable Discharge Details Clinical Impression: Diverticulitis Primary Care Provider: Aleksey Desouza ED Provider: Kitty Couch Home Meds and New Rx's Prescriptions: New amoxicillin-pot clavulanate 875-125 mg tablet 1 tab PO BID 10 Days Qty: 20 0RF Continued Xarelto 20 mg tablet 20 mg PO DAILY Rx Instructions: must administer with evening meal ranolazine [Ranexa] 500 mg tablet extended release 12 hr 500 mg PO BID lansoprazole [Prevacid SoluTab] 30 mg tablet,disintegrat, delay rel 30 mg PO BID isosorbide mononitrate 120 mg tablet extended release 24 hr 120 mg PO DAILY clopidogrel [Plavix] 75 mg tablet 75 mg PO DAILY Patient Comments: 07/26/19 per pt I think my last dose was Monday 07/23 but it could have been Tuesday I don't remember. sertraline 50 mg tablet 50 mg PO DAILY carvedilol 3.125 mg tablet 6.25 mg PO BID nitroglycerin [Nitrostat] 0.4 mg Tablet, Sublingual 0.4 mg sublingual Q5 MIN PRN X3 PRN (Reason: chest pain) Qty: 0 0RF ibuprofen 600 mg tablet 600 mg PO TID PRN (Reason: pain) Qty: 90 0RF hydrocodone-acetaminophen 5-325 mg tablet 1 tab PO TID Patient Comments: TAKE 1 TABLET BY MOUTH THREE TIMES DAILY NEEDED FOR PAIN Rosuvastatin Calcium 40 MG tablet 40 mg PO DAILY amlodipine 10 mg tablet 10 mg PO DAILY bupropion HCl 150 mg tablet extended release 24 hr 300 mg PO DAILY Discharge Instructions Instructions: Diverticulitis (DC) Additional Instructions: CT exam shows evidence of diverticulitis. Please take the antibiotic twice daily with yogurt or a probiotic as prescribed. You may use the nausea medication as needed if nausea occurs. Please return to the ER if you are unable to keep medications down due to vomiting, any worsening pain not relieved by Tylenol or ibuprofen, fever or concerns. Follow up with primary care provider in 3-5 days. Return to ED sooner if any worsening or concerns. Referrals: Aleksey Desouza MD [Primary Care Provider] - 1 week Discharge Data Discharge Date/Time-TO BE ENTERED AT DEPARTURE: 08/05/24 12:07 HPI General Mode of arrival: ambulatory. Date/Time Provider Initiated Documentation: 08/05/24 10:20. Limitations to Documentation: no limitations. Information obtained by: patient, RN notes reviewed and old records reviewed. HPI Narrative: 58-year-old male with a past medical history renal cell carcinoma and bowel resection presents to the ER with chief complaint of lower abdominal pain x 3 weeks, abdominal fullness and decreased appetite with weight loss. Patient reports he is lost approximately 20 pounds over the last 2 months. He denies any nausea vomiting denies any dark or bloody stools he does report mucus in his stools. He does have small hard round balls of stool which he reports has been going on for a while. Their past medical history includes hypertension high cholesterol, ischemic stroke, coronary artery disease, A-fib and hernia repairs and a partial nephrectomy on the left, and ablation. Also has a history of gastritis and dyspepsia. Patient took a hydrocodone [employer]. Related Data Home Medications ?Medication ?Instructions ?Recorded ?Confirmed Rosuvastatin Calcium 40 mg PO DAILY 05/09/18 08/05/24 carvedilol 3.125 mg tablet 6.25 mg PO BID 06/14/19 08/05/24 amlodipine 10 mg tablet 10 mg PO DAILY 06/29/19 08/05/24 nitroglycerin 0.4 mg sublingual 0.4 mg sublingual Q5 MIN PRN X3 11/02/19 08/05/24 tablet (Nitrostat) PRN chest pain #0 tabs ranolazine 500 mg tablet,extended 500 mg PO BID 09/08/20 08/05/24 release,12 hr (Ranexa) rivaroxaban 20 mg tablet (Xarelto) 20 mg PO DAILY 09/08/20 08/05/24 bupropion HCl 150 mg 24 hr tablet, 300 mg PO DAILY 11/10/20 08/05/24 extended release clopidogrel 75 mg tablet (Plavix) 75 mg PO DAILY 09/29/21 08/05/24 isosorbide mononitrate 120 mg 120 mg PO DAILY 09/29/21 08/05/24 tablet,extended release 24 hr lansoprazole 30 mg delayed 30 mg PO BID 09/29/21 08/05/24 release,disintegrating tablet (Prevacid SoluTab) sertraline 50 mg tablet 50 mg PO DAILY 09/29/21 08/05/24 ibuprofen 600 mg tablet 600 mg PO TID PRN pain #90 tabs 01/05/22 08/05/24 hydrocodone 5 mg-acetaminophen 325 1 tab PO TID 02/17/22 08/05/24 mg tablet amoxicillin 875 mg-potassium 1 tab PO BID 10 days #20 tabs 08/05/24 clavulanate 125 mg tablet Previous Rx's ?Medication ?Instructions ?Recorded nitroglycerin 0.4 mg sublingual 0.4 mg sublingual Q5 MIN PRN X3 11/02/19 tablet (Nitrostat) PRN chest pain #0 tabs ibuprofen 600 mg tablet 600 mg PO TID PRN pain #90 tabs 01/05/22 amoxicillin 875 mg-potassium 1 tab PO BID 10 days #20 tabs 08/05/24 clavulanate 125 mg tablet Allergies Allergy/AdvReac Type Severity Reaction Status Date / Time oxycodone Allergy Mild unknown Verified 08/05/24 10:09 atorvastatin calcium (From AdvReac Intermediate liver Verified 08/05/24 10:09 Lipitor) problems niacin AdvReac Mild flushing Verified 08/05/24 10:09 adhesive from monitor tabs Allergy Intermediate jones Uncoded 08/05/24 10:09 General Stated Complaint: Abd Prob MARQUIS: 3 Review of Systems All systems reviewed & are unremarkable except as noted in HPI and below Constitutional Constitutional: Reports poor appetite and Reports weight loss Gastrointestinal Gastrointestinal: Reports abdominal pain, Denies hematochezia, Reports early satiety, Denies vomiting and Reports other (Weight loss, small hard stools with mucous) Exam Narrative Exam Narrative: Constitutional: Alert and oriented x3. Appears stated age. Normal body habitus. Head: Normocephalic, no trauma. Eyes: Pupils PERRL, Red reflex noted, EOM's intact. Eyelids symmetrical without lesions, discharge, or swelling. Chest: RRR, Normal S1, S2, distal pulses intact. Resp: Lungs clear to auscultation bilaterally, no wheezes, rales, or rhonchi. Abdomen: Soft, non-distended, Normoactive bowel sounds all 4 quads. Generalized tenderness with palpation. No masses or guarding noted. Musculoskeletal: Normal gait, Moves all 4 extremities without difficulty. Skin: No suspicious rashes or lesions. Capillary refill less than 2 sec. Neurologic: Cranial nerves II-XII intact. Alert and oriented x 3. Motor: No deficits noted. Sensory: Intact bilaterally all 4 extremities. Hematologic/Lymphatic: No ecchymosis, no lymphadenopathy. Course Vital Signs Vital signs: Vital Signs Temperature 36.8 C 08/05/24 10:06 Pulse 65 08/05/24 10:06 Respiratory Rate 20 08/05/24 10:06 Blood Pressure 128/84 08/05/24 10:06 Pulse Oximetry 98 08/05/24 10:06 Temperature 36.8 C 08/05/24 10:06 Pulse 65 08/05/24 10:06 Respiratory Rate 20 08/05/24 10:06 Respiratory Effort Normal 08/05/24 10:08 Blood Pressure 128/84 08/05/24 10:06 Blood Pressure Position Sitting 08/05/24 10:06 Pulse Oximetry 98 08/05/24 10:06 Oxygen Delivery Method Room Air 08/05/24 10:06 Oxygen Flow Rate 0 08/05/24 10:06 Pain Level 5 08/05/24 10:31 Medical Decision Making 58-year-old male with a past medical history renal cell carcinoma and bowel resection presents to the ER with chief complaint of lower abdominal pain x 3 weeks, abdominal fullness and decreased appetite with weight loss. Patient reports he is lost approximately 20 pounds over the last 2 months. He denies any nausea vomiting denies any dark or bloody stools he does report mucus in his stools. He does have small hard round balls of stool which he reports has been going on for a while. Their past medical history includes hypertension high cholesterol, ischemic stroke, coronary artery disease, A-fib and hernia repairs and a partial nephrectomy on the left, and ablation. Also has a history of gastritis and dyspepsia. Patient took a hydrocodone [employer]. Workup ordered including CBC CMP lipase urinalysis CT abdomen pelvis contrast. CT shows evidence of acute diverticulitis. Will give patient Augmentin and have follow-up with PCP. Labs show no leukocytosis or any signs of infection. Discussed CT results with patient who verbalized understanding. All of his questions were answered to the best my ability. Did instruct him to take probiotic while taking the antibiotic. Does have an appointment with his PCP on Tuesday encouraged him to keep this appointment to return to the ER for any worsening or concerns. This text was generated using [employer] system, please disregard any oddities of phrase or misspellings. Medical Records Medical records reviewed: Yes I reviewed the patient's medical records. Lab Data Lab results reviewed: Yes I reviewed the patient's lab results. Labs: Laboratory Tests Range/Units 08/05/24 08/05/24 10:15 10:25 WBC (4.4-10.8) 10^3/uL 7.47 RBC (4.36-5.78) 10^6/uL 4.39 Hgb (13.5-17.5) g/dL 13.4 L Hct (40.0-50.0) % 39.9 L MCV (80-95) fL 91 MCH (27.0-33.0) pg 30.5 MCHC (32.0-36.0) % 33.6 RDW (11.8-14.1) % 13.8 Plt Count (130-400) 10^3/uL 262 MPV (8.0-11.0) fL 9.1 Immature Gran % % 0.4 Neutrophils % % 66.8 Lymphocytes % % 23.7 Monocytes % % 8.3 Eosinophils % % 0.5 Basophils % % 0.3 Nucleated RBC % (0.0-0.3) % 0.0 Absolute Neutrophils (1.2-6.7) 10^3/uL 4.99 Absolute Lymphocytes (1.2-3.4) 10^3/uL 1.77 Absolute Monocytes (0.1-0.8) 10^3/uL 0.62 Absolute Eosinophils (0.0-0.7) 10^3/uL 0.04 Absolute Basophils (0.0-0.2) 10^3/uL 0.02 Sodium (136-145) mmol/L 141 Potassium (3.5-5.1) mmol/L 4.5 Chloride (98-107) mmol/L 105 Carbon Dioxide (21.0-32.0) mmol/L 26.8 Anion Gap (3-11) mmol/L 9.2 BUN (7-18) mg/dL 14 Creatinine (0.70-1.30) mg/dL 1.1 Est GFR (CKD-EPI 2020) (mL/min/1.73m2) 77.33 Glucose (74-106) mg/dL 94 Calcium (8.5-10.1) mg/dL 8.8 Magnesium (1.8-2.4) mg/dL 1.9 Total Bilirubin (0.2-1.0) mg/dL 0.30 AST (15-37) U/L 17 ALT (16-63) U/L 24 Alkaline Phosphatase (46-116) U/L 101 Total Protein (6.4-8.2) g/dL 7.6 Albumin (3.4-5.0) g/dL 3.4 Lipase (16-77) U/L 39 Urine Color (Yellow) Yellow Urine Clarity (Clear) Clear Urine pH (5-8) 6.0 Ur Specific Sinclair (1.005-1.025) 1.020 Urine Protein (Neg-Trace) mg/dL Negative Urine Ketones (Negative) mg/dL Negative Urine Blood (Negative) Negative Urine Nitrite (Negative) Negative Urine Bilirubin (Negative) Negative Urine Urobilinogen (Up to 0.2) mg/dL 1.0 H Ur Leukocyte Esterase (Negative) Negative Urine Glucose (Negative) mg/dL Negative Quality:SDTX Health Related Social Needs: No Data to Display PFSH All Active Problems (Updated 08/05/24 @ 11:55 by Kitty Couch NP) Diverticulitis (Chronic) Abrasion, corneal (Acute) Kidney malignancy (Chronic) Hyperplastic colon polyp (Acute) Tubular adenoma of colon (Acute) Encounter for colonoscopy due to history of adenomatous colonic polyps (Acute) Unstable angina (Acute) Presented with 5/10 chest pain. Pain relieved with three nitroglycerins, then placed on a nitroglycerin drip, heaprin, as well as loaded with aspirin and Plavis. Transferred to [facility] for further therapy. CAD (coronary artery disease) (Chronic 10/17/13) S/P SD x 2 in 2002. S/P PCI and stent procedures for total of six stents in the intervening 11 years. MPI at [facility] in 06/15/13, negative for ischemia. Cardiac cath in fall showed no flow-limiting lesions; no further intervention. Chest pain (Acute) newly diagnosed with Afib. Goes in and out of afib Right sided weakness (Acute) Pulmonary nodules (Chronic) Atrial fibrillation (Chronic) Stroke (Chronic) Abdominal pain (Acute) Medical History Laceration of finger of left hand Trigger thumb, left thumb Headache Diverticulitis Trigger finger, right middle finger Trigger finger, right index finger Erectile disorder, acquired, generalized, severe Acute epididymo-orchitis Muscle wasting and atrophy, not elsewhere classified, other site Olecranon bursitis of right elbow Superficial foreign body of right elbow Right elbow pain Recurrent bilateral inguinal hernia Penile pain Umbilical hernia Inguinal hernia Spermatocele Lipoma of back Duodenal ulcer Diverticulosis Occipital headache Tubular adenoma of colon (08/03/17) Renal cell carcinoma of left kidney (10/01/16) Ischemic stroke 2017 Hx of adenomatous polyp of colon Esophagitis Tobacco use Back pain, chronic Dysesthesia History of kidney cancer Gastritis Dyspepsia Anemia Dyslipidemia Hemiplegia Sleep apnea Depression with anxiety Dizziness Surgical History Trigger finger, right ring finger S/P Release: 01/05/2022 Trigger finger, left middle finger S/P Release: 01/05/2022 History of back surgery partial fusion Hx of carpal tunnel repair R side Bilateral carpal tunnel syndrome S/P B/L ECTR: 11/25/2020 Hx of tonsillectomy History of hernia repair Olecranon bone spur s/p debridement on 07/27/2019. R elbow Hx of appendectomy History of loop recorder placed a couple months ago per pt 2018 under left chest. History of radiofrequency ablation procedure for cardiac arrhythmia cardiac cath 2014, 9 stents over the years since 2002. Jul or Aug was last stent put in per pt. Partial Nephrectomy left side for renal cell cancer. Has yearly CT scan. 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 EGD - MAC (08/03/17) Colonoscopy - MAC (08/03/17) 10/2021 - repeat in 5 years. Social History Smoking/Tobacco Use Status: Current every day Tobacco Type: cigarettes Smoking packs per day: 10 Smoking cigarettes per day: 200.0 Years smoked: 46 Smoking pack-years: 460.00 Tobacco: How many years used: 47 Smoking risk assessment performed?: Yes Alcohol Intake: current Alcohol Intake frequency: a few times a month Alcohol type: beer Drug use: Never Substance use type: does not use Household members: spouse and children Housing: house Number of Children: 1 Pets and animals: Yes Pets and animals: cat(s) and dog(s) Current gender identity: male What is your relationship status?: Panel score (0-1 are the most socially isolated patients): 1 What type of physical activity do you participate in: none Seatbelt use: sometimes Do you feel safe at home: Yes Do you feel safe in your relationship?: Yes
[2024-08-05 10:38] LABS: Bilirubin Negative (Negative); Blood Negative (Negative); Clarity Clear (Clear); Glucose Negative (Negative); Ketones Negative (Negative); Leukocyte Esterase Negative (Negative); Nitrite Negative (Negative)
[2024-08-05 10:51] LABS: ALT 24 U/L (16-63); AST 17 U/L (15-37); Albumin 3.4 g/dL (3.4-5.0); Alkaline Phosphatase 101 U/L (46-116); Anion Gap 9.2 mmol/L (3-11); BUN 14 mg/dL (7-18); CO2 26.8 mmol/L (21.0-32.0); CREATININE 1.1 mg/dL (0.70-1.30); Calcium 8.8 mg/dL (8.5-10.1); Chloride 105 mmol/L (98-107); Estimated GFR 77.33 (mL/min/1.73m2); Glucose 94 mg/dL (74-106); Lipase 39 U/L (16-77); Magnesium 1.9 mg/dL (1.8-2.4); Potassium 4.5 mmol/L (3.5-5.1); Sodium 141 mmol/L (136-145); Total Protein 7.6 g/dL (6.4-8.2)
[2024-08-05] MEDS: Normal Saline - Diluent 50 ML VIAL IJ (11:06)
[2024-08-05] MEDS: Omnipaque 350 MG/ML 100 ML BTL IJ (11:08)
[2024-08-05] MEDS: Amox. 875/Clav. 125, 2 TABS/BTL 1 TAB PO (12:01)
[2024-08-05] MEDS: Amoxicillin 875/Clav. 125 TAB PO (12:02)
[2024-08-05] MEDS: Ondansetron O.D.T. 4 MG TABEF, 3 TABS/BTL PO (12:02)
[2024-08-05 12:06] VITALS: BP 122/68; PULSE 72; RESP 14; TEMP 36.7; O2SAT 99
== END 2024-08-05 12:07 | disposition home or self-care (01) ==
PROVIDERS: Emergency Provider Registered Nurse Emergency; PCP Family Medicine
DX: K57.32 Diverticulitis of large intestine without perforation or abscess without bleeding (principal); I10 Essential (primary) hypertension; E78.5 Hyperlipidemia, unspecified; I25.10 Atherosclerotic heart disease of native coronary artery without angina pectoris; I48.91 Unspecified atrial fibrillation; F17.210 Nicotine dependence, cigarettes, uncomplicated; Z79.01 Long term (current) use of anticoagulants; Z79.02 Long term (current) use of antithrombotics/antiplatelets; Z85.528 Personal history of other malignant neoplasm of kidney; Z95.5 Presence of coronary angioplasty implant and graft; Z90.5 Acquired absence of kidney
CPT/HCPCS: 80053; 83690; 99285; 74177; 81003; 83735; 85025; 99284; J3490

== ENCOUNTER 2024-09-11 06:15 | Inpatient (IN) | payer MEDICARE, SELFPAY ==
[2024-09-11] VITALS (126 sets, daily range): BP systolic 65–211; BP diastolic 40–189; PULSE 56–139; RESP 12–37; TEMP 35.2–36.7; O2SAT 2–99; BMI 30.5
--- NOTE | 2024-09-11 06:15 | DI.CT_ITS ---
Exam(s) CT ABDOMEN PELVIS W EXAM: CT ABDOMEN PELVIS W CLINICAL HISTORY: abdominal pain/groin pain/testicular pain TECHNIQUE: Imaging Protocol: Axial computed tomography images with coronal and sagittal reformatted images were created and reviewed. CONTRAST MATERIAL: Intravenous: Omnipaque 350 Contrast volume:100 mL Oral: No COMPARISON: CT CT CHEST LUNG CANCER SCREEN from 05/04/[address] ABDOMEN PELVIS WO/W from 06/23/[address] ABDOMEN PELVIS W from 08/05/2024 FINDINGS: ABDOMEN: Lung Bases: Coronary artery calcifications are present. There is a calcified granuloma in the left l ower lobe. Dependent atelectatic changes are present. There is a stable nodule in the right middle lobe. Liver: Stable small cysts with in the liver. The liver is otherwise unremarkable. Portal, Superior Mesenteric, and Splenic Veins: Unremarkable. Gallbladder and Biliary Tract: No radiodense calculus or dilation. Pancreas: Normal density, no abnormal calcifications or inflammatory process. Spleen: Normal. Adrenals: No masses seen. Kidneys: Stable postsurgical changes seen in the left kidney. No evidence of obstructive uropathy. No masses seen. Abdominal Aorta: Abdominal portion non-dilated. Atherosclerotic calcification is present. Bowel: There is no evidence of bowel obstruction. There is thickening of the wall of the small bowel distally including the terminal ileum. There is diverticulosis of the colon. There is mild wall th ickening seen in the mid sigmoid colon. There is extra luminal air seen in the pelvis consistent wit h a perforated viscus. (Series 10, image 175). There is a small amount of free fluid in the pelvis. Still appears to be a small amount of extraluminal stool in the abdominal cavity (series 10, image 1 66). The appendix is not visualized. Peritoneal Cavity: Small amount of free fluid in the pelvis. Small amount of extraluminal air in the pelvis suspicious for perforated viscus. No focal fluid collection is seen to suggest an abscess. Lymph Nodes: Within normal limits. Bones: Within normal limits for the patient's age. There is a left convex curvature of the lumbar sp ine. Soft Tissues: Unremarkable. PELVIS: Bladder: Symmetric distention, no gross wall thickening. Reproductive Organs: Unremarkable as visualized. Lymph Nodes: Within normal limits. Bones: Within normal limits for the patient's age. IMPRESSION: 1. Colonic diverticulosis. There appears to be some thickening of the wall of the mid sigmoid colon. There is adjacent extra luminal air at this level. Acute diverticulitis with perforation is suspected . No abscess is seen. 2. Bowel wall thickening seen in the distal small bowel in the right lower quadrant and pelvis which may reflected subjacent enteritis. 3. There is no evidence of bowel obstruction. 4. Small amount of free fluid in the pelvis. RADIATION DOSE DELIVERED: 696.85mGy.cm Total DLP DATA REPOSITORY: All CT scans at this facility are submitted to the National Radiology Data Registry (NRDR) Dose Index Registry (DIR) with the [employer] (ACR). RADIATION OPTIMIZATION: All CT scans at this facility use at least one of these dose optimization te chniques: automated exposure control; mA and/or kV adjustment per patient size (includes targeted exa ms where dose is matched to clinical indication); or iterative reconstruction.
--- NOTE | 2024-09-11 06:23 | ED.GENADUL_ITS ---
Discharge Plan Discharge Details Chief Complaint: Male Reproductive Problem Clinical Impression: Right testicular pain, Abdominal pain Primary Care Provider: Aleksey Desouza ED Provider: José Swann [place] Meds and New Rx's Prescriptions: No Action Xarelto 20 mg tablet 20 mg PO DAILY Rx Instructions: must administer with evening meal ranolazine [Ranexa] 500 mg tablet extended release 12 hr 500 mg PO BID lansoprazole [Prevacid SoluTab] 30 mg tablet,disintegrat, delay rel 30 mg PO BID isosorbide mononitrate 120 mg tablet extended release 24 hr 120 mg PO DAILY clopidogrel [Plavix] 75 mg tablet 75 mg PO DAILY Patient Comments: 07/26/19 per pt I think my last dose was Monday 07/23 but it could have been Tuesday I don't remember. sertraline 50 mg tablet 50 mg PO DAILY carvedilol 3.125 mg tablet 6.25 mg PO BID nitroglycerin [Nitrostat] 0.4 mg Tablet, Sublingual 0.4 mg sublingual Q5 MIN PRN X3 PRN (Reason: chest pain) Qty: 0 0RF ibuprofen 600 mg tablet 600 mg PO TID PRN (Reason: pain) Qty: 90 0RF hydrocodone-acetaminophen 5-325 mg tablet 1 tab PO TID Patient Comments: TAKE 1 TABLET BY MOUTH THREE TIMES DAILY NEEDED FOR PAIN Rosuvastatin Calcium 40 MG tablet 40 mg PO DAILY amlodipine 10 mg tablet 10 mg PO DAILY bupropion HCl 150 mg tablet extended release 24 hr 300 mg PO DAILY HPI General Mode of arrival: wheelchair . Date/Time Provider Initiated Documentation: 09/11/24 06:17 . Limitations to Documentation: no limitations . Information obtained by: patient and RN notes reviewed . HPI Narrative: Patient presents to ED with sudden onset of abdominal pain, right groin, right testicular pain this morning. Patient was fine when he went to bed last night and was fine when he first woke this morning. Developed sudden onset of severe pain in the right groin and testicle subsequently having abdominal pain and back pain as well. He vomited once on the way here. He was able to urinate this morning. Denies any trauma, was just sitting in a chair when pain began. Appears very uncomfortable holding his abdomen and groin area. Related Data Home Medications ?Medication ?Instructions ?Recorded ?Confirmed Rosuvastatin Calcium 40 mg PO DAILY 05/09/18 09/11/24 carvedilol 3.125 mg tablet 6.25 mg PO BID 06/14/19 09/11/24 amlodipine 10 mg tablet 10 mg PO DAILY 06/29/19 09/11/24 nitroglycerin 0.4 mg sublingual 0.4 mg sublingual Q5 MIN PRN X3 11/02/19 09/11/24 tablet (Nitrostat) PRN chest pain #0 tabs ranolazine 500 mg tablet,extended 500 mg PO BID 09/08/20 09/11/24 release,12 hr (Ranexa) rivaroxaban 20 mg tablet (Xarelto) 20 mg PO DAILY 09/08/20 09/11/24 bupropion HCl 150 mg 24 hr tablet, 300 mg PO DAILY 11/10/20 09/11/24 extended release clopidogrel 75 mg tablet (Plavix) 75 mg PO DAILY 09/29/21 09/11/24 isosorbide mononitrate 120 mg 120 mg PO DAILY 09/29/21 09/11/24 tablet,extended release 24 hr lansoprazole 30 mg delayed 30 mg PO BID 09/29/21 09/11/24 release,disintegrating tablet (Prevacid SoluTab) sertraline 50 mg tablet 50 mg PO DAILY 09/29/21 09/11/24 ibuprofen 600 mg tablet 600 mg PO TID PRN pain #90 tabs 01/05/22 09/11/24 hydrocodone 5 mg-acetaminophen 325 1 tab PO TID 02/17/22 09/11/24 mg tablet Previous Rx's ?Medication ?Instructions ?Recorded nitroglycerin 0.4 mg sublingual 0.4 mg sublingual Q5 MIN PRN X3 11/02/19 tablet (Nitrostat) PRN chest pain #0 tabs ibuprofen 600 mg tablet 600 mg PO TID PRN pain #90 tabs 01/05/22 Allergies Allergy/AdvReac Type Severity Reaction Status Date / Time oxycodone Allergy Mild unknown Verified 09/11/24 06:23 atorvastatin calcium (From AdvReac Intermediate liver Verified 09/11/24 06:23 Lipitor) problems niacin AdvReac Mild flushing Verified 09/11/24 06:23 adhesive from monitor tabs Allergy Intermediate jones Uncoded 09/11/24 06:23 General Stated Complaint: Male Reproductive Problem MARQUIS: 3 Review of Systems Narrative: Per HPI Exam Narrative Exam Narrative: Const: WDWN male appears very uncomfortable. VS per triage. HEENT: NC/AT. Normal facial exam. Neck: Supple. Trachea midline. Lungs: Normal respiratory effort. GI: Soft/ND. Appears diffusely tender but not localizing. : No erythema or swelling to the scrotal area. No obvious inguinal hernia. Testicles appear normal in size and are nontender. Neuro: A+O x 3. Normal speech, mentation, gait. Cranial nerves II - XII grossly intact. No gross motor or sensory deficit. Ext: No C/C/E. Course Vital Signs Vital signs: Vital Signs Temperature 95.4 F L 09/11/24 06:19 Blood Pressure 134/100 H 09/11/24 06:19 Temperature 95.4 F L 09/11/24 06:19 Temperature Source Tympanic 09/11/24 06:19 Blood Pressure 134/100 H 09/11/24 06:19 Blood Pressure Position Sitting 09/11/24 06:19 Oxygen Delivery Method Room Air 09/11/24 06:19 Oxygen Flow Rate 0 09/11/24 06:19 Pain Level 10 09/11/24 06:19 Medical Decision Making Patient presenting to ED with sudden onset of severe right sided groin and testicle pain with abdominal and back pain. He does appear very uncomfortable. Seems to be diffusely tender in the abdomen. Testicles appear normal on exam. Consider testicular torsion, kidney stone, less likely acute abdominal process given sudden onset of symptoms. Consider possible vascular incident, he is on anticoagulation. IV established. Morphine and Zofran ordered. Laboratory studies, urinalysis, CT scan to be obtained. Patient signed out to oncoming ED physician, Dr. Collazo, pending labs, urine, CT scan. If negative workup consider testicular ultrasound. [facility] All Active Problems (Updated 09/11/24 @ 07:11 by José Swann MD) Abdominal pain (Acute) Right testicular pain (Acute) Kidney malignancy (Chronic) Hyperplastic colon polyp (Acute) Tubular adenoma of colon (Acute) Encounter for colonoscopy due to history of adenomatous colonic polyps (Acute) Unstable angina (Acute) Presented with 5/10 chest pain. Pain relieved with three nitroglycerins, then placed on a nitroglycerin drip, heaprin, as well as loaded with aspirin and Plavis. Transferred to [facility] [place] for further therapy. CAD (coronary artery disease) (Chronic 10/17/13) S/P AK x 2 in 2002. S/P PCI and stent procedures for total of six stents in the intervening 11 years. MPI at [facility] in 06/15/13, negative for ischemia. Cardiac cath in fall of 2011 showed no flow-limiting lesions; no further intervention. Chest pain (Acute) newly diagnosed with Afib. Goes in and out of afib Right sided weakness (Acute) Pulmonary nodules (Chronic) Atrial fibrillation (Chronic) Stroke (Chronic) Abdominal pain (Acute) Medical History Laceration of finger of left hand Trigger thumb, left thumb Headache Diverticulitis Trigger finger, right middle finger Trigger finger, right index finger Erectile disorder, acquired, generalized, severe Acute epididymo-orchitis Muscle wasting and atrophy, not elsewhere classified, other site Olecranon bursitis of right elbow Superficial foreign body of right elbow Right elbow pain Recurrent bilateral inguinal hernia Penile pain Umbilical hernia Inguinal hernia Spermatocele Lipoma of back Duodenal ulcer Diverticulosis Occipital headache Tubular adenoma of colon (08/03/17) Renal cell carcinoma of left kidney (10/01/16) Ischemic stroke 2017 Hx of adenomatous polyp of colon Esophagitis Tobacco use Back pain, chronic Dysesthesia History of kidney cancer Gastritis Dyspepsia Anemia Dyslipidemia Hemiplegia Sleep apnea Depression with anxiety Dizziness Surgical History Trigger finger, right ring finger S/P Release: 01/05/2022 Trigger finger, left middle finger S/P Release: 01/05/2022 History of back surgery partial fusion Hx of carpal tunnel repair R side Bilateral carpal tunnel syndrome S/P B/L ECTR: 11/25/2020 Hx of tonsillectomy History of hernia repair Olecranon bone spur s/p debridement on 07/27/2019. R elbow Hx of appendectomy History of loop recorder placed a couple months ago per pt 2019 under left chest. History of radiofrequency ablation procedure for cardiac arrhythmia cardiac cath 2014, 9 stents over the years since 2002. Jul or Aug was last stent put in per pt. Partial Nephrectomy left side for renal cell cancer. Has yearly CT scan. 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 EGD - MAC (08/03/17) Colonoscopy - MAC (08/03/17) 10/2021 - repeat in 5 years. Social History Smoking/Tobacco Use Status: Current every day Tobacco Type: cigarettes Smoking packs per day: 10 Smoking cigarettes per day: 200.0 Years smoked: 46 Smoking pack-years: 460.00 Tobacco: How many years used: 47 Smoking risk assessment performed?: Yes Alcohol Intake: current Alcohol Intake frequency: a few times a month Alcohol type: beer Drug use: Never Substance use type: does not use Household members: spouse and children Housing: house Number of Children: 1 Pets and animals: Yes Pets and animals: cat(s) and dog(s) Current gender identity: male What is your relationship status?: Panel score (0-1 are the most socially isolated patients): 1 What type of physical activity do you participate in: none Seatbelt use: sometimes Do you feel safe at home: Yes Do you feel safe in your relationship?: Yes
[2024-09-11] MEDS: MORPHine 4 MG/ML SYR IVP (06:36)
[2024-09-11] MEDS: Ondansetron 4 MG/2 ML VIAL IVP (06:36)
[2024-09-11 06:43] LABS: Abs Immature Grans 0.05 10^3/uL (0.0-0.06); Absolute Basophil Count 0.05 10^3/uL (0.0-0.2); Absolute Eosinophil Count 0.17 10^3/uL (0.0-0.7); Absolute Monocyte Count 1.01 10^3/uL (0.1-0.8); Absolute Neutrophil Count 8.19 10^3/uL (1.2-6.7); Basophils % 0.4 %; Eosinophils % 1.4 %; HCT 41.2 % (40.0-50.0); HGB 13.9 g/dL (13.5-17.5); Immature Grans % 0.4 %; Lymphocytes % 20.6 %; MCH 30.4 pg (27.0-33.0); MCHC 33.7 % (32.0-36.0); MCV 90 fL (80-95); MPV 8.8 fL (8.0-11.0); Monocytes % 8.5 %; Neutrophils % 68.7 %; Platelet Count 328 10^3/uL (130-400); RBC 4.57 10^6/uL (4.36-5.78); RDW 13.9 % (11.8-14.1); RDW-SD 46.5 fL; WBC 11.92 10^3/uL (4.4-10.8)
[2024-09-11 06:46] LABS: Absolute Lymphocyte Count 2.46 10^3/uL (1.2-3.4)
[2024-09-11 07:05] LABS: ALT 20 U/L (16-63); AST 17 U/L (15-37); Albumin 3.6 g/dL (3.4-5.0); Alkaline Phosphatase 94 U/L (46-116); Anion Gap 12.2 mmol/L (3-11); BUN 13 mg/dL (7-18); CO2 23.8 mmol/L (21.0-32.0); CREATININE 1.2 mg/dL (0.70-1.30); Calcium 9.1 mg/dL (8.5-10.1); Chloride 104 mmol/L (98-107); Estimated GFR 69.66 (mL/min/1.73m2); Glucose 137 mg/dL (74-106); Lipase 36 U/L (<78); Potassium 4.1 mmol/L (3.5-5.1); Sodium 140 mmol/L (136-145); Total Protein 7.6 g/dL (6.4-8.2)
[2024-09-11] MEDS: Omnipaque 350 MG/ML 100 ML BTL IJ (07:13)
[2024-09-11] MEDS: Normal Saline - Diluent 50 ML VIAL IJ (07:14)
[2024-09-11] MEDS: MORPHine 10 MG/ML VIAL 6 MG IVP (07:22)
[2024-09-11] MEDS: HYDROmorphone 2 MG/ML SYR IVP (08:01)
--- NOTE | 2024-09-11 09:13 | DI.VRAD_ITS ---
Addendum created by Nikkie Serrano MD on 09/11/2024 9:19:26 AM EST: Findings discussed with Dr. Collazo 09/11/2024 9:19 AM EST. Initial report created on 09/11/2024 9:13:06 AM EST: PROCEDURE INFORMATION: Exam: CT Abdomen And Pelvis With Contrast Exam date and time: 09/11/2024 7:03 AM Age: 58 years old Clinical indication: Abdominal pain; Patient HX: Abd pain into groin, testicular pain TECHNIQUE: Imaging protocol: Computed tomography of the abdomen and pelvis with contrast. COMPARISON: CT ABDOMEN PELVIS W 08/05/2024 11:02 AM FINDINGS: There is minimal bibasilar atelectasis. There is coronary artery calcification. Liver: There are several small cysts in the liver. Gallbladder and biliary ducts: Normal. No calcified stones. No ductal dilation. Pancreas: Normal. No ductal dilation. Spleen: Normal. No splenomegaly. Adrenal glands: Normal. No mass. Kidneys and ureters: Partial left nephrectomy. No hydronephrosis. Stomach and bowel: There is diverticular disease with wall thickening and surrounding inflammatory change in the sigmoid colon, consistent with acute diverticulitis. There is minimal adjacent free air and free fluid consistent with perforation. No evidence of a formed abscess however there does appear to be some extraluminal fecal material in the right lower quadrant extending from the sigmoid colon, best seen on coronal series 4, image 21. There is no evidence of intestinal obstruction. Stomach and small bowel are unremarkable. Appendix: The appendix is not identified with certainty, but there are no secondary CT findings of appendicitis. Intraperitoneal space: See Stomach and bowel finding. Pneumoperitoneum noted. Vasculature: Unremarkable. No abdominal aortic aneurysm. Lymph nodes: Unremarkable. No enlarged lymph nodes. Urinary bladder: Unremarkable as visualized. Reproductive: Unremarkable as visualized. Bones/joints: Degenerative changes of the spine and scoliosis, without acute osseous abnormality. No acute fracture. Soft tissues: Unremarkable. IMPRESSION: Perforated acute sigmoid diverticulitis as described. Dictated and Authenticated by: Nikkie Serrano MD. Ordering:VANDANA Kumar MD
[2024-09-11] MEDS: Normal Saline 1,000 ML 1000 ML IV ×2 (09:14→10:08)
[2024-09-11] MEDS: PIPERACILLIN/TAZO 4.5 GM in Normal Saline 100 ML IVPB (09:23)
--- NOTE | 2024-09-11 09:30 | W.EDPROG ---
Date of service: 09/11/24 Time of Service: 09:30 Medical Decision Making Patient's labs show mild leukocytosis, CT shows diverticulitis with small perforation. He did require multiple doses of morphine and also 2 mg of Dilaudid to help control his pain, he did also take his morning doses of his meds including his antihypertensives, his blood pressure did drop to maps of the 58-60 range. I suspect dehydration and possibly related to the opiates, will treat with IV fluids and reassess. Di ordered and will consult general surgery. Dr. Chase evaluated the patient we will plan for admission. BP now 96/67 with a MAP of 72. Quality:[facility] Health Related Social Needs: No Data to Display Discharge Plan Disposition Patient Disposition: Admit to [facility] Condition: Serious Discharge Details Chief Complaint: Male Reproductive Problem Clinical Impression: Abdominal pain, Diverticulitis of colon with perforation Primary Care Provider: Aleksey Desouza ED Provider: Bladimir Collazo [place] Meds and New Rx's Prescriptions: No Action Xarelto 20 mg tablet 20 mg PO DAILY Rx Instructions: must administer with evening meal ranolazine [Ranexa] 500 mg tablet extended release 12 hr 500 mg PO BID lansoprazole [Prevacid SoluTab] 30 mg tablet,disintegrat, delay rel 30 mg PO BID isosorbide mononitrate 120 mg tablet extended release 24 hr 120 mg PO DAILY clopidogrel [Plavix] 75 mg tablet 75 mg PO DAILY Patient Comments: 07/26/19 per pt I think my last dose was Monday 07/23 but it could have been Tuesday I don't remember. sertraline 50 mg tablet 50 mg PO DAILY carvedilol 3.125 mg tablet 6.25 mg PO BID nitroglycerin [Nitrostat] 0.4 mg Tablet, Sublingual 0.4 mg sublingual Q5 MIN PRN X3 PRN (Reason: chest pain) Qty: 0 0RF ibuprofen 600 mg tablet 600 mg PO TID PRN (Reason: pain) Qty: 90 0RF hydrocodone-acetaminophen 5-325 mg tablet 1 tab PO TID Patient Comments: TAKE 1 TABLET BY MOUTH THREE TIMES DAILY NEEDED FOR PAIN Rosuvastatin Calcium 40 MG tablet 40 mg PO DAILY amlodipine 10 mg tablet 10 mg PO DAILY bupropion HCl 150 mg tablet extended release 24 hr 300 mg PO DAILY
[2024-09-11 10:14] LABS: C-Reactive Protein 0.95 mg/dL (<or=0.5)
--- NOTE | 2024-09-11 10:17 | HPE_ITS ---
Date of service: 09/11/24 Time of Service: 10:17 Assessment and Plan Assessment and plan (1) Perforation of sigmoid colon due to diverticulitis: Status: Acute Assessment and plan: Informed consent is obtained for the procedural (explained in simple layman's terms that the pt and/or family could understand) explaining risks vs benefits and alternatives to the procedure and consequences if we do not do the procedure. Risks include but are not limited to: bleeding, infections, pneumonia, blood clots/DVT/PE, anesthesia (aspiration, damage to teeth/airway/MN/CVA//prolonged mechanical ventilation/PTX/IV infections), damage to bowel, bladder, blood vessels, ureters, bile ducts. Damage to solid organs requiring removal. Wound infections requiring further surgery. Loss of function of limb/ext. (motor or sensory). ?Scarring and disfigurement. Subsequent bowel obstructions from scar tissue.? Chronic pain or numbness from the incision, or hernia. MN/CVA/. Pt will have an A-line and central line post-OP. Pt wants all measure done to save his life other than CPR. He understands that he will be intubated and on a breathing machine for sugery, and due to his COPD he may require a few days on the ventilator postOP. SX: exploratory laparotomy and washout and diverting colostomy. May need to leave incision open and packing OR wound VAC. Colostomy may be reversed in 6-12 wks. pt will be in icu for several days. may require rehab vs home PT nad nutritioinal support. Hospitalist be consulted postoperatively for assistance in medical management he will receive DDAVP to assist in reversing The Plavix and Kcentra for the Xarelto. Will have a Fuchs catheter to NG tube and postoperatively Further recommendations to follow up on findings at the time of surgery. 45 mins spent in direct pt care and 90 in non face to face time (2) CAD (coronary artery disease): Status: Chronic (3) Peritonitis: Status: Acute (4) Hypotension: Status: Acute (5) Sepsis associated hypotension: Status: Acute (6) Sepsis: Status: Acute (7) Tobacco abuse: Status: Suspected (8) Renal cell carcinoma of left kidney: (9) Ischemic stroke: (10) Sleep apnea: History of Present Illness Narrative: Patient is a 58-year-old male with a known history of diverticular disease who presents to the ER today complaining of abdominal and testicular pain. He underwent a CT which did show acute diverticulitis with free air and stool outside the abdomen. I did review the CT scan with radiology. He did receive IV Zosyn and pain medication and is still having diffuse peritonitis. He also has a systolic BP in the 90s. He cannot get comfortable in the bed. I do think surgical intervention is required. We discussed that would be an exploratory laparotomy with the big incision and that he would have a colostomy or a bag postoperatively. He will be in the hospital probably about a week's time. He is high risk for MN or stroke postoperatively. He agreed to have all resuscitative measures except for chest compressions/CPR. He understands that he will be intubated and may be on the vent for several days postoperatively. He understands that the colostomy can be reversed in 6 to 12 weeks as long as he is medical stable. He was offered the opportunity to go to [facility] for care. However he does have pretty significant peritonitis/sepsis/hypotension. And bed availability has been difficult at [facility] today. I do not think he is medically stable for transport at this time however. The patient was able to talk to his and did notify her that he is going to emergency surgery. Review of Systems All systems reviewed & are unremarkable except as noted in HPI and below PFSH All Active Problems Sepsis (Acute) Sepsis associated hypotension (Acute) Hypotension (Acute) Peritonitis (Acute) Perforation of sigmoid colon due to diverticulitis (Acute) Diverticulitis of colon with perforation (Acute) Abdominal pain (Acute) Kidney malignancy (Chronic) Hyperplastic colon polyp (Acute) Tubular adenoma of colon (Acute) Encounter for colonoscopy due to history of adenomatous colonic polyps (Acute) Unstable angina (Acute) Presented with 5/10 chest pain. Pain relieved with three nitroglycerins, then placed on a nitroglycerin drip, heaprin, as well as loaded with aspirin and Plavis. [place] [facility] [place]. CAD (coronary artery disease) (Chronic 10/17/13) S/P MN x 2 in 2002. S/P PCI and stent procedures for total of six stents in the intervening 11 years. MPI at [facility] in 06/15/13, negative for ischemia. Cardiac cath in fall of 2011 showed no flow-limiting lesions; no further intervention. Chest pain (Acute) newly diagnosed with Afib. Goes in and out of afib Right sided weakness (Acute) Pulmonary nodules (Chronic) Atrial fibrillation (Chronic) Stroke (Chronic) Abdominal pain (Acute) Medical History Laceration of finger of left hand Trigger thumb, left thumb Headache Diverticulitis Trigger finger, right middle finger Trigger finger, right index finger Erectile disorder, acquired, generalized, severe Acute epididymo-orchitis Muscle wasting and atrophy, not elsewhere classified, other site Olecranon bursitis of right elbow Superficial foreign body of right elbow Right elbow pain Recurrent bilateral inguinal hernia Penile pain Umbilical hernia Inguinal hernia Spermatocele Lipoma of back Duodenal ulcer Diverticulosis Occipital headache Tubular adenoma of colon (08/03/17) Renal cell carcinoma of left kidney (10/01/16) Ischemic stroke 2017 Hx of adenomatous polyp of colon Esophagitis Tobacco use Back pain, chronic Dysesthesia History of kidney cancer Gastritis Dyspepsia Anemia Dyslipidemia Hemiplegia Sleep apnea Depression with anxiety Dizziness Surgical History Trigger finger, right ring finger S/P Release: 01/05/2022 Trigger finger, left middle finger S/P Release: 01/05/2022 History of back surgery partial fusion Hx of carpal tunnel repair R side Bilateral carpal tunnel syndrome S/P B/L ECTR: 11/25/2020 Hx of tonsillectomy History of hernia repair Olecranon bone spur s/p debridement on 07/27/2019. R elbow Hx of appendectomy History of loop recorder placed a couple months ago per pt 2019 under left chest. History of radiofrequency ablation procedure for cardiac arrhythmia cardiac cath 2014, 9 stents over the years since 2002. Jul or Aug was last stent put in per pt. Partial Nephrectomy left side for renal cell cancer. Has yearly CT scan. 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 EGD - MAC (08/03/17) Colonoscopy - MAC (08/03/17) 10/2021 - repeat in 5 years. Social History Smoking/Tobacco Use Status: Current every day Tobacco Type: cigarettes Smoking packs per day: 1 Smoking cigarettes per day: 20.0 Years smoked: 46 Smoking pack- years: 46.00 Tobacco: How many years used: 47 Smoking risk assessment performed?: Yes Alcohol Intake: current Alcohol Intake frequency: a few times a month Alcohol type: beer Drug use: Never Substance use type: does not use Household members: spouse and children Housing: house Number of Children: 1 Pets and animals: Yes Pets and animals: cat(s) and dog(s) Current gender identity: male What is your relationship status?: Panel score (0-1 are the most socially isolated patients): 1 What type of physical activity do you participate in: none Seatbelt use: sometimes Do you feel safe at home: Yes Do you feel safe in your relationship?: Yes Meds Allergies and Home Medications Allergies Allergy/AdvReac Type Severity Reaction Status Date / Time oxycodone Allergy Mild unknown Verified 09/11/24 06:23 atorvastatin calcium (From AdvReac Intermediate liver Verified 09/11/24 06:23 Lipitor) problems niacin AdvReac Mild flushing Verified 09/11/24 06:23 adhesive from monitor tabs Allergy Intermediate jones Uncoded 09/11/24 06:23 Home Medications ?Medication ?Instructions ?Recorded ?Confirmed ?Type Rosuvastatin Calcium 40 mg PO DAILY 05/09/18 09/11/24 History carvedilol 3.125 mg tablet 6.25 mg PO BID 06/14/19 09/11/24 History amlodipine 10 mg tablet 10 mg PO DAILY 06/29/19 09/11/24 History nitroglycerin 0.4 mg sublingual 0.4 mg sublingual Q5 MIN PRN X3 11/02/19 09/11/24 Rx tablet (Nitrostat) PRN chest pain #0 tabs ranolazine 500 mg tablet,extended 500 mg PO BID 09/08/20 09/11/24 History release,12 hr (Ranexa) rivaroxaban 20 mg tablet (Xarelto) 20 mg PO DAILY 09/08/20 09/11/24 History bupropion HCl 150 mg 24 hr tablet, 300 mg PO DAILY 11/10/20 09/11/24 History extended release clopidogrel 75 mg tablet (Plavix) 75 mg PO DAILY 09/29/21 09/11/24 History isosorbide mononitrate 120 mg 120 mg PO DAILY 09/29/21 09/11/24 History tablet,extended release 24 hr lansoprazole 30 mg delayed 30 mg PO BID 09/29/21 09/11/24 History release,disintegrating tablet (Prevacid SoluTab) sertraline 50 mg tablet 50 mg PO DAILY 09/29/21 09/11/24 History ibuprofen 600 mg tablet 600 mg PO TID PRN pain #90 tabs 01/05/22 09/11/24 Rx hydrocodone 5 mg-acetaminophen 325 1 tab PO TID 02/17/22 09/11/24 History mg tablet Exam Narrative Exam Narrative: PHYSICAL EXAM GENERAL APPEARANCE: Alert, healthy appearance, oriented, x 3,? in no acute distress HYDRATION: Well hydrated HEAD, EYES, EARS, NECK, THROAT: Head is normocephalic, pupils equal, round, reactive to light and accommodation, ocular movement intact, sclera clear and no jaundice. edentulous LUNGS: normal respiration/normal chest excursion. ?Clear to auscultation bilaterally. ?No wheeze. ?HEART: Regular rate and rhythm. no murmurs EXTREMITY: No edema or cyanosis.? no leg pain, redness, swelling.? ABDOMEN: diffuse peritonitis. no BS postSx changes noted including prior appendecomty (open) and several inguinal hernia surgery's) Results Labs 09/11/24 06:27 09/11/24 06:27 Labs: Laboratory Results - last 24 hr 09/11/24 06:27 WBC 11.92 H RBC 4.57 Hgb 13.9 Hct 41.2 MCV 90 MCH 30.4 MCHC 33.7 RDW 13.9 Plt Count 328 MPV 8.8 Immature Gran % 0.4 Neutrophils % 68.7 Lymphocytes % 20.6 Monocytes % 8.5 Eosinophils % 1.4 Basophils % 0.4 Nucleated RBC % 0.0 Absolute Neutrophils 8.19 H Absolute Lymphocytes 2.46 Absolute Monocytes 1.01 H Absolute Eosinophils 0.17 Absolute Basophils 0.05 Sodium 140 Potassium 4.1 Chloride 104 Carbon Dioxide 23.8 Anion Gap 12.2 H BUN 13 Creatinine 1.2 Est GFR (CKD-EPI 2020) 69.66 Glucose 137 H Calcium 9.1 Total Bilirubin 0.30 AST 17 ALT 20 Alkaline Phosphatase 94 C-Reactive Protein 0.95 H Total Protein 7.6 Albumin 3.6 Lipase 36 Last Vital Signs Temp 36.4 C L 09/11/24 09:14 Pulse 59 L 09/11/24 10:11 Resp 24 09/11/24 10:11 BP 93/59 L 09/11/24 10:11 Pulse Ox 93 09/11/24 10:11 Time Spent Time spent with Patient: >75 minutes Time was spent: preparing to see the patient(eg.review tests), obtaining and/or reviewing separately otained hiistory, ordering medications,tests, procedures, referring, communicating with other health resident care aid, indepentently interpreting results, counseling the patient, care coordination and other
[2024-09-11] MEDS: HYDROmorphone 2 MG/ML SYR 0.5 MG IVP (10:35)
[2024-09-11] MEDS: ACETAMINOPHEN 1,000 MG/100 ML BAG 400 MG IVPB ×2 (10:40→19:03)
[2024-09-11 11:03] LABS: Procalcitonin < 0.10 ng/mL
[2024-09-11] MEDS: FAMOTIDINE 20 MG/50 ML BAG 200 MG IV (11:09)
[2024-09-11] MEDS: Normal Saline 1,000 ML 75 ML IV (12:03)
[2024-09-11] MEDS: HUMAN PROTHROM. CMPX. 2,000 UNIT in EMPTY EVACUATED CONTAINER 1 EACH 360 UNIT IV (12:44)
--- NOTE | 2024-09-11 12:52 | ANES.PREOP_ITS ---
General Info Date of Service Date Performed: 09/11/24 Height: 5 ft 11 in Weight: 99.337 kg Body Mass Index (BMI): 30.5 Surgical Procedure: Operation Date: 09/11/24 14:35 Proposed Procedure Side Surgeon p Colostomy Opening/Closing Beverley Chase, DO s Exploratory Laparotomy Beverley Chase, DO Actual Procedure Side Surgeon p Colostomy Opening/Closing Beverley Chase, DO s Exploratory Laparotomy Beverley Chase, DO Pre-Op Diagnosis Post-Op Diagnosis Diverticulitis with perforation Meds Allergies and Home Medications Allergies Allergy/AdvReac Type Severity Reaction Status Date / Time oxycodone Allergy Mild unknown Verified 09/11/24 06:23 atorvastatin calcium (From AdvReac Intermediate liver Verified 09/11/24 06:23 Lipitor) problems niacin AdvReac Mild flushing Verified 09/11/24 06:23 adhesive from monitor tabs Allergy Intermediate jones Uncoded 09/11/24 06:23 Home Medication ?Medication ?Instructions ?Recorded Rosuvastatin Calcium 40 mg PO DAILY 05/09/18 carvedilol 3.125 mg tablet 6.25 mg PO BID 06/14/19 amlodipine 10 mg tablet 10 mg PO DAILY 06/29/19 nitroglycerin 0.4 mg sublingual 0.4 mg sublingual Q5 MIN PRN X3 11/02/19 tablet (Nitrostat) PRN chest pain #0 tabs ranolazine 500 mg tablet,extended 500 mg PO BID 09/08/20 release,12 hr (Ranexa) rivaroxaban 20 mg tablet (Xarelto) 20 mg PO DAILY 09/08/20 bupropion HCl 150 mg 24 hr tablet, 300 mg PO DAILY 11/10/20 extended release clopidogrel 75 mg tablet (Plavix) 75 mg PO DAILY 09/29/21 isosorbide mononitrate 120 mg 120 mg PO DAILY 09/29/21 tablet,extended release 24 hr lansoprazole 30 mg delayed 30 mg PO BID 09/29/21 release,disintegrating tablet (Prevacid SoluTab) sertraline 50 mg tablet 50 mg PO DAILY 09/29/21 ibuprofen 600 mg tablet 600 mg PO TID PRN pain #90 tabs 01/05/22 hydrocodone 5 mg-acetaminophen 325 1 tab PO TID 02/17/22 mg tablet Current Visit Medications: Current Medications Generic Name Dose Route Start Last Admin Trade Name Freq PRN Reason Stop Dose Admin Sodium Chloride 1,000 mls @ 75 mls/hr 09/11/24 10:15 09/11/24 12:03 Saline 1000ml Bag IV 75 mls/hr INFUSION KEHINDE Administration Piperacillin Sod/Tazobactam 50 mls @ 100 mls/hr 09/11/24 16:00 Sod 3.375 gm/ Sodium Chloride IVPB Q6H KEHINDE Acetaminophen 1,000 mg in 100 mls @ 400 mls/hr 09/11/24 10:00 09/11/24 10:51 Ofirmev IVPB Infused Q6H KEHINDE Infusion Famotidine 20 mg in 50 mls @ 200 mls/hr 09/11/24 10:00 09/11/24 11:28 Pepcid Premixed Bag IV Infused Q12H KEHINDE Infusion IV Miscellaneous Supplies 1 each 09/11/24 06:30 Iv Access IV DIRECTED KEHINDE IV Miscellaneous Supplies 1 each 09/11/24 10:15 Iv Access IV DIRECTED KEHINDE Iohexol 100 ml 09/11/24 07:15 09/11/24 07:13 Omnipaque 350 Mg/Ml 100 Ml Btl IJ 10/11/24 23:59 100 ml DIRECTED KEHINDE Administration Morphine Sulfate 2 mg 09/11/24 10:31 Morphine 4 Mg/Ml Syr IVP Q1H PRN PRN Ondansetron HCl 4 mg 09/11/24 10:00 Ondansetron 4 Mg/2 Ml Vial IVP Q4H PRN PRN Sodium Chloride 0 ml 09/11/24 06:28 Normal Saline Flush 10 Ml Syr IVP PRN PRN Sodium Chloride 0 ml 09/11/24 08:30 Normal Saline Flush 10 Ml Syr IVP BID KEHINDE Sodium Chloride 0 ml 09/11/24 06:28 Normal Saline 10 Ml Vial IJ DIRECTED PRN Sodium Chloride 50 ml 09/11/24 07:15 09/11/24 07:14 Normal Saline - Diluent 50 Ml Vial IJ 50 ml .FOR DI USE KEHINDE Administration Sodium Chloride 0 ml 09/11/24 10:14 Normal Saline Flush 10 Ml Syr IVP PRN PRN Sodium Chloride 0 ml 09/11/24 20:00 Normal Saline Flush 10 Ml Syr IVP BID KEHINDE Sodium Chloride 0 ml 09/11/24 10:14 Normal Saline 10 Ml Vial IJ DIRECTED PRN PFSH Active Problems Active Problems: Problem Status Onset Code Diverticulitis of colon with perforation Acute K57.20 Abdominal pain Acute R10.9 Kidney malignancy Chronic C64.9 Hyperplastic colon polyp Acute K63.5 Tubular adenoma of colon Acute D12.6 Encounter for colonoscopy due to history of adenomatous colonic polyps Acute Z12.11, Z86.010 Unstable angina Acute I20.0 CAD (coronary artery disease) Chronic 10/17/13 I25.10 Chest pain Acute R07.9 Right sided weakness Acute R53.1 Pulmonary nodules Chronic Atrial fibrillation Chronic I48.91 Stroke Chronic I63.9 Abdominal pain Acute R10.9 Medical History Medical History Laceration of finger of left hand Trigger thumb, left thumb Headache Diverticulitis Trigger finger, right middle finger Trigger finger, right index finger Erectile disorder, acquired, generalized, severe Acute epididymo-orchitis Muscle wasting and atrophy, not elsewhere classified, other site Olecranon bursitis of right elbow Superficial foreign body of right elbow Right elbow pain Recurrent bilateral inguinal hernia Penile pain Umbilical hernia Inguinal hernia Spermatocele Lipoma of back Duodenal ulcer Diverticulosis Occipital headache Tubular adenoma of colon (08/03/17) Renal cell carcinoma of left kidney (10/01/16) Ischemic stroke 2017 Hx of adenomatous polyp of colon Esophagitis Tobacco use Back pain, chronic Dysesthesia History of kidney cancer Gastritis Dyspepsia Anemia Dyslipidemia Hemiplegia Sleep apnea Depression with anxiety Dizziness Medical History Comments:: Loop recorder (L) chest per anes (BB) does not need interpretation log. Surgical History Surgical History Trigger finger, right ring finger S/P Release: 01/05/2022 Trigger finger, left middle finger S/P Release: 01/05/2022 History of back surgery partial fusion Hx of carpal tunnel repair R side Bilateral carpal tunnel syndrome S/P B/L ECTR: 11/25/2020 Hx of tonsillectomy History of hernia repair Olecranon bone spur s/p debridement on 07/27/2019. R elbow Hx of appendectomy History of loop recorder placed a couple months ago per pt 2019 under left chest. History of radiofrequency ablation procedure for cardiac arrhythmia cardiac cath 2014, 9 stents over the years since 2002. Nov or Dec of 2018 was last stent put in per pt. Partial Nephrectomy left side for renal cell cancer. Has yearly CT scan. 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 EGD - MAC (08/03/17) Colonoscopy - MAC (08/03/17) 10/2021 - repeat in 5 years. Tobacco Smoking/Tobacco Use Status: Current every day Tobacco Type: cigarettes Smoking packs per day: 1 Smoking cigarettes per day: 20 Years smoked: 46 Smoking pack- years: 460.00 Alcohol Alcohol Intake: current Alcohol intake frequency: a few times a month Alcohol type: beer Substance Use Substance use: Never Substance use type: does not use Vital Signs and Lab Results Vital Signs Most Recent Vital Signs in EMR: Most Recent Vital Signs Temp Pulse Resp BP Pulse Ox 36.5 C 70 22 107/77 92 09/11/24 12:05 09/11/24 12:05 09/11/24 12:05 09/11/24 12:05 09/11/24 12:05 Lab Results 09/11/24 06:27 09/11/24 06:27 Blood Type / Crossmatch: 2 No Data to Display Complete Blood Count: 2 White Blood Count 11.92 10^3/uL (4.4-10.8) H 09/11/24 06:27 Red Blood Count 4.57 10^6/uL (4.36-5.78) 09/11/24 06:27 Hemoglobin 13.9 g/dL (13.5-17.5) 09/11/24 06:27 Hematocrit 41.2 % (40.0-50.0) 09/11/24 06:27 Platelet Count 328 10^3/uL (130-400) 09/11/24 06:27 Complete Metabolic Panel: 2 Sodium 140 mmol/L (136-145) 09/11/24 06:27 Potassium 4.1 mmol/L (3.5-5.1) 09/11/24 06:27 Chloride 104 mmol/L (98-107) 09/11/24 06:27 Carbon Dioxide 23.8 mmol/L (21.0-32.0) 09/11/24 06:27 BUN 13 mg/dL (7-18) 12/17/24 06:27 Creatinine 1.2 mg/dL (0.70-1.30) 09/11/24 06:27 Est GFR (CKD-EPI 2020) 69.66 (mL/min/1.73m2) 09/11/24 06:27 Calcium 9.1 mg/dL (8.5-10.1) 09/11/24 06:27 Albumin 3.6 g/dL (3.4-5.0) 09/11/24 06:27 Glucose 137 mg/dL (74-106) H 09/11/24 06:27 C-Reactive Protein 0.95 mg/dL (<or=0.5) H 09/11/24 06:27 Liver Function Panel: 2 Alanine Aminotransferase (ALT/SGPT) 20 U/L (16-63) 09/11/24 06: 27 Aspartate Amino Transf (AST/SGOT) 17 U/L (15-37) 09/11/24 06:27 Coagulation Panel: 2 No Data to Display Cardiac Panel: 2 No Data to Display Arterial Blood Gas: 2 No Data to Display Venous Blood Gas: 2 No Data to Display Pancreas Panel: 2 Lipase 36 U/L (<78) 09/11/24 06:27 Thyroid Panel: 2 No Data to Display Infectious Disease: 2 No Data to Display Blood Cultures: 2 No Data to Display Toxicology Panel: 2 No Data to Display Imaging and Studies Imaging and Studies Study information below may be from another EMR and interpreted by another provider. Please see original notes in EMR for more complete details. EKG Summary: 11/07/23: Exam: Resting ECG Reason for Exam: Syncope Patient Location: E HR:107 bpm ECG Measurements Heart Rate 107 AXIS NV 147 P 17 QRSd 93 QRS 10 QT 328 T98 QTc 438 Conclusion Sinus tachycardia...rate> 99 Ventricular bigeminy...bigeminy string>4 w/ V complexes sinus rhythm, normal axis, frequency PVCs I have reviewed and I agree with the emergency room physician's ECG interpretation. Stress Test Summary: Date of Exam: 08/10/21Sex: M Admission Date: 08/10/21 : 1965 Age: 55 MPI Conclusion Normal myocardial perfusion without evidence of ischemia or prior infarction Wall motion appears normal EF 52% Echocardiogram Summary: Date of Exam: 11/01/19ex: M Admission Date: 11/01/19 : 1965 Age: 54 Exam(s) a US:US echo wo doppler or color APPROVED REPORT EXAM: Limited 2D Echocardiogram Patient Location: ER [facility] Irrigator: Louise Bui RDCS (AE) Rhythm: NSR Indications: concern for atypical L vent anatomy vs. aneurysm Conclusion Left Ventricle : The left ventricle is normal size. There is no evidence of an LV aneurysm though contrast was not utilized. There is normal left ventricular wall thickness. The left ventricular systolic function is normal. The left ventricular ejection fraction is within the normal range. There is normal LV segmental wall motion. LVEF is estimated to be 60-65%. Compared to echocardiogram dated 10/16/2015: There is no change noted Cardiac Catheterization Summary: January 2203: Mild in-stent restenosis, left circumflex artery October 2023 (structural, MADELEINE Plata): Continue to monitor, no recent chest pain, no edema Carotid Artery Summary:: 01/13/18: IMPRESSION: No evidence of significant carotid stenosis. Pulmonary Function Summary: DATE OF SERVICE March 22, 2019 REQUESTING PROVIDER Delonte Corral M.D. INTERPRETATION OF STUDY Spirometry shows no evidence of obstructive airways disease. No bronchodilator response. LUNG VOLUMES - Lung volumes show no evidence of restriction. DIFFUSION CAPACITY- Mildly reduced even when corrected to alveolar volume. AIRWAY RESISTANCE - Normal. IMPRESSION Overall no evidence of obstructive airways disease. There is mild diffusion defect even when corrected to alveolar volume. As an isolated finding, this can be associated with developing pulmonary hypertension or developing interstitial lung disease, therefore clinical correlation recommended. Anesthesia Assessment and Plan Anesthesia History Personal History: No History of Anesthesia Complications Family History: No Family History of Anesthesia Complications Exercise Tolerance Exercise Tolerance: Metabolic Equivalents>4 Pertinent Negatives Pertinent Negatives: No Symptoms of GERD Cardiac & Pulmonary Exam Cardiac Exam: Normal S1/S2 Heart Sounds Pulmonary Exam: Clear Bilateral Breath Sounds Implantable Cardiac Device Does patient have a Pacemaker or an ICD?: No Airway Exam Known Difficult Airway: No Mallampati Class: 1 Mouth Opening: Normal (> 3cm) Thyromental Distance: Greater than 3 cm Neck Range of Motion: Full ROM Neck Circumference: Normal Teeth Condition: Edentulous ASA Classification ASA Score: ASA 4 Emergency Case?: Yes NPO Status NPO Status: Full Stomach Anesthesia Plan Resuscitation Status: Other (Patient has requested no chest compression, agreeable to shock and medications) Anesthesia Technique: General Anesthesia Airway Planned: Endotracheal Tube (RSI) Monitors Used: Standard Monitors, Arterial Line and SedLine Preoperative Comments:: 58 y.o. male with significant smoking history, history of CAD with complex PCI history [place] [facility] [place] and read review of most recent visits[place] AF (anticoagulated), nephrectomy x2, LMCA stroke, HTN, HLD, GERD who presents with acute abdomen. Dr. Chase to proceed with emergent exploratory laparotomy and will be emergently reversed, patient given chance to seek transfer and explained risks to include stroke, heart attack, up to and including . Patient verbalizes understanding of risks and wishes to proceed with surgery here. Patient was able to update via telephone prior to surgery.
[2024-09-11] MEDS: Lactated Ringers 1,000 ML 50 ML IV ×2 (13:33→16:09)
--- NOTE | 2024-09-11 14:18 | W.ANESVAS ---
Midline Placement Date Performed: 09/11/24 Procedure Time: 14:52 Requesting Provider: Marybeth Ochoa Procedure Location: Operating Room Sedation Given (Indicate Dose Given): No Sedation given Patient Mental Status: Awake Sterility: Hand Hygiene, Surgical Cap, Surgical Mask, Sterile Gloves, Sterile Drape/Sheet and Chlorhexidine Laterality: Left Insertion Site: Brachial Midline Device: PowerGlide Pro 18G Catheter Length: 10 cm Midline Procedure Procedure: Catheter placed without resistance Dressing: Tegaderm Applied and Statlock Applied Blood Return: Present Flushes: Easily Ultrasound: Sterile probe cover and gel used Ultrasound Image Saved?: Yes Number of Attempts (See previous attempts in note section): 1 Procedure Tolerated: No Complications Procedure Outcome: Successful Performed By: Shar Albarran
[2024-09-11] MEDS: PIPERACILLIN/TAZO 3.375 GM in Normal Saline 50 ML IVPB ×2 (14:23→20:24)
[2024-09-11 14:27] LABS: BE -8 mmol/L (-2-3); HCO3 20 mmol/L (22-26); pCO2 50 mmHg (35-45); pH 7.22 (7.35-7.45); pO2 170 mmHg (80-105); sO2 100 % (95-98); tCO2 19 mmol/L (23-27)
[2024-09-11 14:28] LABS: Site Right Radial
[2024-09-11 14:29] LABS: FIO2 85 %
[2024-09-11] MEDS: Bupivacaine 0.25% Pres-Free 30 ML VIAL (14:46)
[2024-09-11] MEDS: Bupivacaine LIPOSOME/PF 133 MG/10 ML VIAL IJ (14:47)
--- NOTE | 2024-09-11 15:00 | BOWEL_PTH ---
PATIENT: Adams Anne LOC: ICU U#:[id number] AGE/SX: 58/M ROOM: ICU.220 RE09/11/[address]: Beverley Chase : 1965 BED: A DIS: 09/11/2024 SPEC #: [id number] RECD: 09/11/24 18:12 STATUS: MARAL REQ #: [id number] QI: 09/11/24 15:[address]: Beverley Chase DEPT: Surgical Specimen RECD BY: Heaven Castellanos ENTERED: 09/11/24 18:14 SP TYPE: Bowel OTHR DR: Yamilex Escamilla,Gerda Marie, Charlie Parikh,Sherice Sharpe RN,Nithya Desouza,Una Waggoner Tissues: 1 - BOWEL RESECTION(OTHER) Procedures: GROSS AND MICRO LEVEL 5 Comments: [id number]
[2024-09-11] MEDS: Norepinephrine in D5W 8 MG/250 ML BAG 11.25 MG IV (17:30)
[2024-09-11] MEDS: PROPOFOL 1,000 MG/100 ML BTL 29.801 MG IV (17:50)
--- NOTE | 2024-09-11 18:07 | ROE_ITS ---
Operative Note Operative Note PRE-OP DIAGNOSIS: acute abdomen/perforated diverticulitis POST-OP DIAGNOSIS: same (gross stool in abdomen ) PROCEDURE: ex lap sigmoid resection diverting colostomy SURGEON: Beverley Chase SSN/SSBN WEAPONS EQUIPMENT OPERATOR: Gloria Concepcion SSN/SSBN WEAPONS EQUIPMENT OPERATOR: Elijah Dawson ANESTHESIA TYPE: Local By Surgeon and General LMA/ETT Refer to Anesthesia Record ESTIMATED BLOOD LOSS: 50 PATHOLOGY: other COMPLICATIONS: None Patient was transported to: PACU Patient's condition: critical Findings: Perforated sigmoid colon and significant amount of feculent fluid Procedure Description: Patient is a 58-year-old male with a history of diverticulosis and diverticulitis (presents to the ER complaining of abdominal pain. On CT scan he was found to have acute diverticulitis with free air, a large amount of fluid in the pelvis and gross stool in the abdomen. He does present as septic and hypotensive, tachycardic, and with acute per itonitis. I did review the patient's past medical history and chart with anesthesia. He is at high risk for surgery. [facility] does not currently have any beds. And patient is septic with peritonitis. Patient consents to having surgery at an [facility]. If there are any cardiac complications then we would transfer him out. Informed consent is obtained explaining risks and benefits of procedure inc luding but not limited to: Bleeding, infection, pneumonia, blood clots, GA, CVA, , complications from anesthesia, prolonged mechanical ventilation. We did discuss his CODE STATUS. Patient wants everything done from cardiac standpoint but no chest compressions. We did discuss that we would need to do a colostomy. We did discuss that this could be reversible in 6 to 12 weeks as long as he is stable from a cardiopulmonary standpoint. He is not diabetic. He has had 2 strokes, (he has residual right-sided weakness from his strokes) he has had 2 amount MIs, he has a history of COPD and he still smokes. He has a history of kidney cancer. He has a history of A-fib. He is currently in tacky but sinus rhythm. He is currently anticoagulated on Plavix and Xarelto. I did review the case with pharmacy. We will plan on giving DDAVP and Kcentra prior to surgery. He will have an A-line and a midline placed. Patient was consented for this. Patient also understands that he may have prolonged mechanical ventilation, due to COPD and sepsis. Patient is brought to the operative room suite and placed in the supine position. Anesthesia is administered per the department of anesthesia. A A- line and midline is placed. Fuchs catheter and NG tube are placed. He does have 2 large-bore IVs available for access. He is typed and crossed. He received Zosyn and ER in addition to the Kcentra and DDAVP. Patient is prepped and draped in the usual sterile fashion using a ChloraPrep scrub solution. Timeout was performed in the usual standard per institutional protocol. Vertical incision is made with #10 blade from the pubis to 2 fingerbreadths above the umbilicus in the standard fashion. Electrocautery is used to provide hemostasis and dissect down to the fascia. Fascia and peritoneum is elevated by 2 hemostats and rent is made with Metzenbaum scissors, and two fingers are placed in the abdomen, and the incision is carried superiorly and inferiorly. Upon entering the abdomen there is a significant amount of gross feculent drainage that is suction for approximately 2 L of stool. There is a significant quantity of formed stool that is free in the abdomen. The abdomen is irrigated with 6 L of saline, including above the liver and down into the pelvis The small bowel is run. There is significant feculent staining. NG tube is in good position. There is no masses in the liver. Visualized portions of the stomach are normal, and normal to palpation. He has had a previous gallbladder and appendectomy. The colon is run and explored. It is completely filled with hard stool. He has a large amount of sigmoid diverticula that are confined to the left colon. He has a perforation in the mid sigmoid colon. The small bowel is packed away. Pizano's are used for retraction. The sigmoid colon is mobilized by opening the white line of Toldt. The ureter is identified. The incision is carried to the sigmoid flexure and down to the peritoneal reflection. The mesentery is scored and rents are made in the mesentery. He has mult. very large epiploic, many are removed to facilitate the resection. A SUKHWINDER 80 with a thick staple bar is used to excise the colon at the rectosigmoid junction distally, and mid sigmoid proximally. The remainder of the mesentery is exxcised with a LigaSure. The specimen is passed off the field. It is eventually opened and contains a large amount of hard stool. There is no sign of malignancy. The proximal limb is further mobilized to facilitate creation of a colostomy. A circular skin hole is made in the left upper quadrant. A cruciate incision is made through the fat. A rent is made in the mid rectus muscle and the cruciate incision is carried through to the fascia. The proximal limb is brought up through the colostomy incision. There is no tension or bleeding. A TERRELL Drain is placed on either side of the abdomen and placed in the right and the left gutters respectively and and then brought down into the pelvis. These are sewn in with 2-0 Prolene. Further irrigation is carried out the abdomen, Including down in the pelvis and over top of the liver; until we have clear irrigation. He is extremely high risk for developing further abscess. The dissection sites are inspected and show no bleeding. There is no injury to the spleen. The distal stump is oversewn with Prolene incisions leaving them long- x2. . The proximal colostomy limb sewn to the fascia using 2-0 Vicryl at the 12 and 6:00 positions. INterceed was placed under the incision. The peritoneum was closed with 0 Vicryl in a running fashion. The fascia was closed with [id number] interrupted stitches of 0 PDS. The fat pad is irrigated and left open and packed with Kerlix. The drains are sewn in with 3-0 Prolene. The colostomy was then matured in standard fashion using 3-0 Prolene and a 3 by suture at the Compass point and then matured using 4-0 Vicryl. The colostomy appliance is applied.'s sterile dressings are applied. Patient Toller procedure well without complication and transferred to the cover room stable condition Due to his ongoing hemodynamic instability it was decided to leave him intubated and transfer him up to the ICU on the ventilator. Systolic pressures are running in the 90s on 6 mics of nor epi. Family was apprised of the findings and his condition. Hospitalist will be consulted for medical management Date of Procedure: 09/11/24
--- NOTE | 2024-09-11 18:07 | W.BRIEF ---
Date of service: 09/11/24 Time of Service: 16:30 Brief Operative Note Procedure/Pre & Post Op Diagnoses/Field Sales Specialist: Operation Date: 09/11/24 14:35 Actual Procedures p Colostomy Opening/Closing(Not Applicable) - Beverley Chase DO s Exploratory Laparotomy(Not Applicable) - Beverley Chase DO Pre-Op Diagnosis: Diverticulitis with perforation Post-Op Diagnosis: Diverticulitis with perforation Case Staff Physician Field Sales Specialist: Gloria Concepcion Physician Field Sales Specialist: Elijah Dawson Anesthesia Anesthesia Type: Local By Surgeon and General LMA/ETT Estimated Blood Loss Output, Estimated Blood Loss 50 Amount Specimen/Culture Specimen(s): 1. sigmoid Culture(s): peritoneal Additional Procedure Notes Note: resection of sigmoid colon
[2024-09-11 18:19] LABS: BE -8 mmol/L (-2-3); HCO3 20 mmol/L (22-26); pCO2 48 mmHg (35-45); pH 7.23 (7.35-7.45); pO2 98 mmHg (80-105); sO2 97 % (95-98); tCO2 18 mmol/L (23-27)
[2024-09-11 18:20] LABS: Site Arterial Line
[2024-09-11 18:21] LABS: FIO2 40 %
--- NOTE | 2024-09-11 18:22 | MCONE_ITS ---
Date of service: 09/11/24 Time of Service: 18:22 Assessment and Plan Assessment and plan (1) CAD (coronary artery disease): Status: Chronic Assessment and plan: At this point the patient does appear stable but considering his multiple risk factors as well as the fact that he will not be on any blood thinners anticoagulation I recommend once again transfer to higher level of care where cardiology as well as critical care is available. At this time though there is no ICU beds available and there is a risk in transfer has to be kept in consideration. I did discuss with Dr. Chase and we are going to start Lovenox 12 hours after his surgery. (2) Tobacco abuse: Status: Suspected Assessment and plan: At this point I do not want to give him any nicotine replacement at due to its (3) Atrial fibrillation: Status: Chronic Assessment and plan: pt has actually been accepted in [facility] to [facility] in [place], [place] (4) Hypotension: Status: Acute Assessment and plan: On levophed at 8mikes. Once again, pt has been accepted in [facility] (5) Diverticulitis of colon with perforation: Status: Acute Assessment and plan: Operative Note Operative Note PRE-OP DIAGNOSIS: acute abdomen/perforated diverticulitis POST-OP DIAGNOSIS: same (gross stool in abdomen ) PROCEDURE: ex lap sigmoid resection diverting colostomy SURGEON: Beverley Chase RESIDENTIAL PROPERTY CONSULTANT: Gloria Concepcion RESIDENTIAL PROPERTY CONSULTANT: Elijah Dawson ANESTHESIA TYPE: Local By Surgeon and General LMA/ETT Refer to Anesthesia Record ESTIMATED BLOOD LOSS: 50 PATHOLOGY: other COMPLICATIONS: None Patient was transported to: PACU Patient's condition: critical (6) Peritonitis: Status: Acute (7) Dyslipidemia: History of Present Illness Narrative: This is a 58-year-old gentleman with a significant past medical history including multiple CVAs, coronary artery disease, atrial fibrillation with recent cardioversion, tobacco abuse as well as a history of renal cell carcinoma. Patient presented to the ED this morning with abdominal pain and a CT scan was done which showed perforated diverticulitis in the sigmoid region. Patient was taken to the ED and an operation was performed by Dr. Chase the general surgery service with a colectomy as well as the placement of an ostomy. Postoperatively the patient had significant hypotension and is requiring pressure support. At this time he is taking 8 mics of Levophed. With the Levophed his MAP is 65. In review of his chart his last cath was in March and according to Dr. Peña there was some left circumflex disease but no interventions were done. Also the patient does appear to have stable angina but does not regularly take his nitro due to side effects including headaches. I did discuss the case with Dr. Rena fang after the surgery and my recommendation was to transfer the patient as he is at significant risk for deterioration from a cardiac standpoint. Unfortunately [facility] does not have any beds and I am reaching out to [facility] to see if they can accept the patient. If not we will consider transfer to [facility]. The patient is stable at that the current time though and from a septic and infectious standpoint I think we are in good shape. Review of Systems Unobtainable due to endotracheal tube PFSH All Active Problems Sepsis (Acute) Sepsis associated hypotension (Acute) Hypotension (Acute) Peritonitis (Acute) Perforation of sigmoid colon due to diverticulitis (Acute) Diverticulitis of colon with perforation (Acute) Abdominal pain (Acute) Kidney malignancy (Chronic) Hyperplastic colon polyp (Acute) Tubular adenoma of colon (Acute) Encounter for colonoscopy due to history of adenomatous colonic polyps (Acute) Unstable angina (Acute) Presented with 5/10 chest pain. Pain relieved with three nitroglycerins, then placed on a nitroglycerin drip, heaprin, as well as loaded with aspirin and Plavis. Transferred to [facility] for further therapy. CAD (coronary artery disease) (Chronic 10/17/13) S/P ME x 2 in 2002. S/P PCI and stent procedures for total of six stents in the intervening 11 years. MPI at [facility] in 06/15/13, negative for ischemia. Cardiac cath in fall showed no flow-limiting lesions; no further intervention. Chest pain (Acute) newly diagnosed with Afib. Goes in and out of afib Right sided weakness (Acute) Pulmonary nodules (Chronic) Atrial fibrillation (Chronic) Stroke (Chronic) Abdominal pain (Acute) Medical History Laceration of finger of left hand Trigger thumb, left thumb Headache Diverticulitis Trigger finger, right middle finger Trigger finger, right index finger Erectile disorder, acquired, generalized, severe Acute epididymo-orchitis Muscle wasting and atrophy, not elsewhere classified, other site Olecranon bursitis of right elbow Superficial foreign body of right elbow Right elbow pain Recurrent bilateral inguinal hernia Penile pain Umbilical hernia Inguinal hernia Spermatocele Lipoma of back Duodenal ulcer Diverticulosis Occipital headache Tubular adenoma of colon (08/03/17) Renal cell carcinoma of left kidney (10/01/16) Ischemic stroke 2017 Hx of adenomatous polyp of colon Esophagitis Tobacco use Back pain, chronic Dysesthesia History of kidney cancer Gastritis Dyspepsia Anemia Dyslipidemia Hemiplegia Sleep apnea Depression with anxiety Dizziness Surgical History Trigger finger, right ring finger S/P Release: 01/05/2022 Trigger finger, left middle finger S/P Release: 01/05/2022 History of back surgery partial fusion Hx of carpal tunnel repair R side Bilateral carpal tunnel syndrome S/P B/L ECTR: 11/25/2020 Hx of tonsillectomy History of hernia repair Olecranon bone spur s/p debridement on 07/27/2019. R elbow Hx of appendectomy History of loop recorder placed a couple months ago per pt 2019 under left chest. History of radiofrequency ablation procedure for cardiac arrhythmia cardiac cath 2013, 9 stents over the years since 2002. Jul or Aug was last stent put in per pt. Partial Nephrectomy left side for renal cell cancer. Has yearly CT scan. 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 EGD - MAC (08/03/17) Colonoscopy - MAC (08/03/17) 10/2021 - repeat in 5 years. Social History Smoking/Tobacco Use Status: Current every day Tobacco Type: cigarettes Smoking packs per day: 1 Smoking cigarettes per day: 20.0 Years smoked: 46 Smoking pack- years: 46.00 Tobacco: How many years used: 47 Smoking risk assessment performed?: Yes Alcohol Intake: current Alcohol Intake frequency: a few times a month Alcohol type: beer Drug use: Never Substance use type: does not use Household members: spouse and children Housing: house Number of Children: 1 Pets and animals: Yes Pets and animals: cat(s) and dog(s) Current gender identity: male What is your relationship status?: Panel score (0-1 are the most socially isolated patients): 1 What type of physical activity do you participate in: none Seatbelt use: sometimes Do you feel safe at home: Yes Do you feel safe in your relationship?: Yes Exam Narrative Exam Narrative: Head eyes ears nose and throat: Normocephalic atraumatic endotracheal tube in place Neck: No lymphadenopathy no JVD no thyromegaly Cardiovascular: His heart rate did sound irregularly irregular to me but on the monitor it showed sinus rhythm Lungs: Decreased breath sounds bilaterally but no accessory muscle use on ventilator Abdomen: Ostomy appliance in place : No Fuchs is in place Psych: Cannot be assessed Neurologic: Cannot be assessed Results Last Vital Signs Temp 36.7 C 09/11/24 16:39 Pulse 61 09/11/24 16:45 Resp 15 09/11/24 17:49 BP 97/47 L 09/11/24 17:49 Pulse Ox 94 09/11/24 17:49 Labs 09/11/24 06:27 09/11/24 06:27 Labs: Laboratory Results - last 24 hr 09/11/24 09/11/24 09/11/24 06:27 13:07 14:22 WBC 11.92 H RBC 4.57 Hgb 13.9 Hct 41.2 MCV 90 MCH 30.4 MCHC 33.7 RDW 13.9 Plt Count 328 MPV 8.8 Immature Gran % 0.4 Neutrophils % 68.7 Lymphocytes % 20.6 Monocytes % 8.5 Eosinophils % 1.4 Basophils % 0.4 Nucleated RBC % 0.0 Absolute Neutrophils 8.19 H Absolute Lymphocytes 2.46 Absolute Monocytes 1.01 H Absolute Eosinophils 0.17 Absolute Basophils 0.05 ABG Sample Site Right Radial ABG pH 7.22 L ABG pCO2 50 H ABG pO2 170 H ABG HCO3 20 L ABG Total CO2 19 L ABG O2 Saturation 100 H ABG Base Excess -8 L FiO2 85 Sodium 140 Potassium 4.1 Chloride 104 Carbon Dioxide 23.8 Anion Gap 12.2 H BUN 13 Creatinine 1.2 Est GFR (CKD-EPI 2020) 69.66 Glucose 137 H Calcium 9.1 Total Bilirubin 0.30 AST 17 ALT 20 Alkaline Phosphatase 94 C-Reactive Protein 0.95 H Total Protein 7.6 Albumin 3.6 Lipase 36 Procalcitonin < 0.10 ABO/Rh O Positive Antibody Screen NEGATIVE 09/11/24 18:15 WBC RBC Hgb Hct MCV MCH MCHC RDW Plt Count MPV Immature Gran % Neutrophils % Lymphocytes % Monocytes % Eosinophils % Basophils % Nucleated RBC % Absolute Neutrophils Absolute Lymphocytes Absolute Monocytes Absolute Eosinophils Absolute Basophils ABG Sample Site Arterial Line ABG pH 7.23 L ABG pCO2 48 H ABG pO2 98 ABG HCO3 20 L ABG Total CO2 18 L ABG O2 Saturation 97 ABG Base Excess -8 L FiO2 40 Sodium Potassium Chloride Carbon Dioxide Anion Gap BUN Creatinine Est GFR (CKD-EPI 2020) Glucose Calcium Total Bilirubin AST ALT Alkaline Phosphatase C-Reactive Protein Total Protein Albumin Lipase Procalcitonin ABO/Rh Antibody Screen
[2024-09-11] MEDS: fentaNYL 100 MCG/2 ML VIAL IVP ×2 (18:36→20:16)
[2024-09-11] MEDS: PROPOFOL 1,000 MG/100 ML BTL 75 MG IV (18:55)
[2024-09-11 19:01] LABS: Abs Immature Grans 0.01 10^3/uL (0.0-0.06); Absolute Basophil Count 0.02 10^3/uL (0.0-0.2); Absolute Lymphocyte Count 0.54 10^3/uL (1.2-3.4); Absolute Monocyte Count 0.51 10^3/uL (0.1-0.8); Absolute Neutrophil Count 4.36 10^3/uL (1.2-6.7); Basophils % 0.4 %; HCT 43.3 % (40.0-50.0); HGB 14.1 g/dL (13.5-17.5); Immature Grans % 0.2 %; Lymphocytes % 9.9 %; MCH 30.5 pg (27.0-33.0); MCHC 32.6 % (32.0-36.0); MPV 8.8 fL (8.0-11.0); Monocytes % 9.4 %; Neutrophils % 80.1 %; Platelet Count 320 10^3/uL (130-400); RBC 4.62 10^6/uL (4.36-5.78); RDW 14.6 % (11.8-14.1); RDW-SD 50.7 fL; WBC 5.44 10^3/uL (4.4-10.8)
[2024-09-11 19:04] LABS: MCV 94 fL (80-95)
--- NOTE | 2024-09-11 19:08 | W.PM.DS.N ---
Date of service: 09/11/24 Time of Service: 19:08 DS: Diagnosis Discharge Diagnosis (1) CAD (coronary artery disease): Status: Chronic (2) Tobacco abuse: Status: Suspected (3) Atrial fibrillation: Status: Chronic (4) Hypotension: Status: Acute (5) Diverticulitis of colon with perforation: Status: Acute (6) Peritonitis: Status: Acute (7) Dyslipidemia: (8) Acidosis, metabolic: Status: Acute (9) Sepsis: Status: Acute (10) Sepsis associated hypotension: Status: Acute (11) Renal cell carcinoma of left kidney: (12) Sleep apnea: (13) Tobacco use: (14) Perforation of sigmoid colon due to diverticulitis: Status: Acute (15) History of stroke: Status: Acute (16) History of MN (myocardial infarction): Status: Acute (17) COPD (chronic obstructive pulmonary disease): Status: Chronic (18) History of anticoagulant use: Status: Acute (19) NEELAM (acute kidney injury): Status: Acute Discharge Plan Disposition Specific Acute In Facility: [place] Condition: Serious Condition: Critical Discharge Details Reason For Visit: acute diverticulitis w/micro perforation Admit Date/Time: 09/11/24 12:31 Admit Provider: Beverley Chase Attending Provider: Beverley Chase Primary Care Provider: Aleksey Desouza Hospital Course Hospital Course: Patient is a 58-year-old male presenting to [facility] ER complaining of abdominal pain. He underwent lab work which was significant for a white count of 12 hemoglobin of 14. Normal electrolytes. Procalcitonin was normal. CT scan did show severe acute diverticulitis with perforation and free air and gross stool outside of the colon. Patient exhibited signs of sepsis and peritonitis and hemodynamic instability with a systolic blood pressure in the 90s. He has a history of multiple strokes and multiple MIs. He is currently anticoagulated on Plavix and Xarelto. He also has a past medical history significant for hypertension/ kidney malignancy (for which he underwent 2 resections), A-fib, residual right-sided weakness from 2 strokes. Coronary artery disease. 2 MIs. He has a history of A-fib. He underwent a procedure at [facility] for A-fib, we are assuming this was a cardioversion. He is currently in normal sinus rhythm. Please see anesthesia notes for recent nuclear stress test and echo from [facility].. He underwent exploratory laparotomy which showed significant amounts of gross and formed stool in the abdomen. He underwent sigmoid resection and diverting colostomy. He is currently sedated on propofol 75 mcg & on the ventilator with a tidal volume of 750/ PEEP of 5 /rate of 18 and 40% oxygen This latest ABG shows a pH of 7.23/CO2 of 40/pO2 90 bicarb of 20 base excess of -8/ He is on Zosyn. He is on norepinephrine at 18 mcg. Repeat lab work shows a white count of 5 /hemoglobin of 14/ and platelets of 320 Troponin was 5. He has made minimal urine since we came out of the OR. His blood pressure remains very labile. Last set of vitals at 8 PM show BP of 97/47, heart rate of 64, respiratory rate of 17, and oxygen saturation 94% He has a left brachial midline. He has a right radial A-line. He underwent exploratory laparotomy with sigmoid resection and Hinojosa's colostomy. He has 2 drains 1 in the right gutter terminating in the pelvis and 1 in the left gutter terminating in the pelvis. He has a left upper quadrant colostomy. Fascia is closed but the skin is left open and packed. Family is at bedside and apprised of his condition and impending transfer. Home Meds and New Rx's Prescriptions: No Action Xarelto 20 mg tablet 20 mg PO DAILY Rx Instructions: must administer with evening meal ranolazine [Ranexa] 500 mg tablet extended release 12 hr 500 mg PO BID lansoprazole [Prevacid SoluTab] 30 mg tablet,disintegrat, delay rel 30 mg PO BID isosorbide mononitrate 120 mg tablet extended release 24 hr 120 mg PO DAILY clopidogrel [Plavix] 75 mg tablet 75 mg PO DAILY Patient Comments: 07/26/19 per pt I think my last dose was Monday 07/23 but it could have been Tuesday I don't remember. sertraline 50 mg tablet 50 mg PO DAILY carvedilol 3.125 mg tablet 6.25 mg PO BID nitroglycerin [Nitrostat] 0.4 mg Tablet, Sublingual 0.4 mg sublingual Q5 MIN PRN X3 PRN (Reason: chest pain) Qty: 0 0RF ibuprofen 600 mg tablet 600 mg PO TID PRN (Reason: pain) Qty: 90 0RF hydrocodone-acetaminophen 5-325 mg tablet 1 tab PO TID Patient Comments: TAKE 1 TABLET BY MOUTH THREE TIMES DAILY NEEDED FOR PAIN Rosuvastatin Calcium 40 MG tablet 40 mg PO DAILY amlodipine 10 mg tablet 10 mg PO DAILY bupropion HCl 150 mg tablet extended release 24 hr 300 mg PO DAILY Discharge Instructions Additional Instructions: Please see transfer packet for transfer orders. Equipment/Supplies:: No Equipment Needed Diet:: npo DS: Summary Time Spent with Patient providing and/or coordinating discharge services: Greater than 30 minutes Status at Discharge Functional status at discharge: bed bound Overall status at discharge: patient is not back to baseline Mental Status: other (Sedated and intubated) Speech and Movement: other (Sedated and intubated) Mood: other (Sedated and intubated) Affect: other Quality:SDOH Health Related Social Needs: No Data to Display Exam Psych Mental Status: other (Sedated and intubated) Speech and Movement: other (Sedated and intubated) Mood: other (Sedated and intubated) Affect: other DS: Data Vitals/I&O Vitals and I&O: Vital Signs Temperature 36.7 C 09/11/24 16:39 Temperature Source Temporal Artery Scan 09/11/24 16:39 Pulse 61 09/11/24 16:45 Pulse 64 09/11/24 17:49 Respiratory Rate 15 09/11/24 17:49 Respiratory Effort Non-Labored, Mechanically Ventilated 09/11/24 16:39 Respiratory Depth Normal 09/11/24 16:39 Respiratory Pattern Normal 09/11/24 16:39 Blood Pressure 97/47 L 09/11/24 17:49 Blood Pressure Mean 66 09/11/24 16:45 Blood Pressure Position Supine 09/11/24 07:25 Pulse Oximetry 94 09/11/24 17:49 Respiratory End-tidal CO2 47 09/11/24 17:49 Oxygen Delivery Method Mechanical Ventilator 09/11/24 16:39 Oxygen Flow Rate 0 09/11/24 16:39 Fraction of Inspired Oxygen (FIO2) 40 09/11/24 17:49 Pain Level 10 09/11/24 13:41 Comment aware of VS, 2nd bolus NS ordered 09/11/24 09:51 Arterial Systolic 117 09/11/24 16:45 Arterial Diastolic 60 09/11/24 16:45 Arterial Mean 75 09/11/24 16:45 Intake & Output 09/10/24 09/11/24 09/11/24 23:59 11:59 23:59 Intake Total 2166.667 / 3546.551 1379.884 / 3546.551 Output Total 337 / 337 Balance 2166.667 / 3209.551 1042.884 / 3209.551 Weight 99.337 kg 99.337 kg Intake: IV 2166.667 / 3546.551 1379.884 / 3546.551 Output: Drainage / Left Abdomen 87 / Urine 200 / 200 Estimated Blood Loss 50 / 50 Other: Urine Color Straw Urine Appearance Clots Comment patient scans ranged from 19-60mls Data Completed and Pending Labs on day of discharge: Labs from last 24 hours 09/11/24 09/11/24 09/11/24 18:45 18:45 18:45 WBC 5.44 RBC 4.62 Hgb 14.1 Hct 43.3 MCV 94 D MCH 30.5 MCHC 32.6 RDW 14.6 H Plt Count 320 MPV 8.8 Immature Gran % 0.2 Neutrophils % 80.1 Lymphocytes % 9.9 Monocytes % 9.4 Eosinophils % 0.0 Basophils % 0.4 Nucleated RBC % 0.0 Absolute Neutrophils 4.36 Absolute Lymphocytes 0.54 L Absolute Monocytes 0.51 Absolute Eosinophils 0.00 Absolute Basophils 0.02 ABG Sample Site ABG pH ABG pCO2 ABG pO2 ABG HCO3 ABG Total CO2 ABG O2 Saturation ABG Base Excess FiO2 Sodium Pending Potassium Pending Chloride Pending Carbon Dioxide Pending Anion Gap Pending BUN Pending Creatinine Pending Est GFR (CKD-EPI 2020) Pending Glucose Pending Calcium Pending Magnesium Pending Cancelled Total Bilirubin AST ALT Alkaline Phosphatase Troponin I Pending Cancelled C-Reactive Protein Total Protein Albumin Lipase Procalcitonin Urine Color Urine Clarity Urine pH Ur Specific Jackson Urine Protein Urine Ketones Urine Blood Urine Nitrite Urine Bilirubin Urine Urobilinogen Ur Leukocyte Esterase Urine Glucose ABO/Rh Antibody Screen 09/11/24 09/11/24 09/11/24 18:15 14:22 13:07 WBC RBC Hgb Hct MCV MCH MCHC RDW Plt Count MPV Immature Gran % Neutrophils % Lymphocytes % Monocytes % Eosinophils % Basophils % Nucleated RBC % Absolute Neutrophils Absolute Lymphocytes Absolute Monocytes Absolute Eosinophils Absolute Basophils ABG Sample Site Arterial Line Right Radial ABG pH 7.23 L 7.22 L ABG pCO2 48 H 50 H ABG pO2 98 170 H ABG HCO3 20 L 20 L ABG Total CO2 18 L 19 L ABG O2 Saturation 97 100 H ABG Base Excess -8 L -8 L FiO2 40 85 Sodium Potassium Chloride Carbon Dioxide Anion Gap BUN Creatinine Est GFR (CKD-EPI 2020) Glucose Calcium Magnesium Total Bilirubin AST ALT Alkaline Phosphatase Troponin I C-Reactive Protein Total Protein Albumin Lipase Procalcitonin Urine Color Urine Clarity Urine pH Ur Specific Jackson Urine Protein Urine Ketones Urine Blood Urine Nitrite Urine Bilirubin Urine Urobilinogen Ur Leukocyte Esterase Urine Glucose ABO/Rh O Positive Antibody Screen NEGATIVE 09/11/24 09/11/24 07:10 06:27 WBC 11.92 H RBC 4.57 Hgb 13.9 Hct 41.2 MCV 90 MCH 30.4 MCHC 33.7 RDW 13.9 Plt Count 328 MPV 8.8 Immature Gran % 0.4 Neutrophils % 68.7 Lymphocytes % 20.6 Monocytes % 8.5 Eosinophils % 1.4 Basophils % 0.4 Nucleated RBC % 0.0 Absolute Neutrophils 8.19 H Absolute Lymphocytes 2.46 Absolute Monocytes 1.01 H Absolute Eosinophils 0.17 Absolute Basophils 0.05 ABG Sample Site ABG pH ABG pCO2 ABG pO2 ABG HCO3 ABG Total CO2 ABG O2 Saturation ABG Base Excess FiO2 Sodium 140 Potassium 4.1 Chloride 104 Carbon Dioxide 23.8 Anion Gap 12.2 H BUN 13 Creatinine 1.2 Est GFR (CKD-EPI 2020) 69.66 Glucose 137 H Calcium 9.1 Magnesium Total Bilirubin 0.30 AST 17 ALT 20 Alkaline Phosphatase 94 Troponin I C-Reactive Protein 0.95 H Total Protein 7.6 Albumin 3.6 Lipase 36 Procalcitonin < 0.10 Urine Color Pending Urine Clarity Pending Urine pH Pending Ur Specific Jackson Pending Urine Protein Pending Urine Ketones Pending Urine Blood Pending Urine Nitrite Pending Urine Bilirubin Pending Urine Urobilinogen Pending Ur Leukocyte Esterase Pending Urine Glucose Pending ABO/Rh Antibody Screen 09/11/24 14:40 Peritoneal Surgical Culture - Pending 09/11/24 14:40 Peritoneal Anaerobic Culture - Pending 09/11/24 10:00 Blood Blood Culture - Pending 09/11/24 09:45 Blood Blood Culture - Pending Preliminary micro results at discharge 09/11/24 14:40 Surgical Culture - Pending Peritoneal 09/11/24 14:40 Anaerobic Culture - Pending Peritoneal 09/11/24 10:00 Blood Culture - Pending Blood 09/11/24 09:45 Blood Culture - Pending Blood [facility] All Active Problems (Updated 09/11/24 @ 19:20 by Beverley Chase DO) NEELAM (acute kidney injury) (Acute) History of anticoagulant use (Acute) COPD (chronic obstructive pulmonary disease) (Chronic) History of MN (myocardial infarction) (Acute) History of stroke (Acute) Acidosis, metabolic (Acute) Sepsis (Acute) Sepsis associated hypotension (Acute) Hypotension (Acute) Peritonitis (Acute) Perforation of sigmoid colon due to diverticulitis (Acute) Diverticulitis of colon with perforation (Acute) Abdominal pain (Acute) Kidney malignancy (Chronic) Hyperplastic colon polyp (Acute) Tubular adenoma of colon (Acute) Encounter for colonoscopy due to history of adenomatous colonic polyps (Acute) Unstable angina (Acute) Presented with 5/10 chest pain. Pain relieved with three nitroglycerins, then placed on a nitroglycerin drip, heaprin, as well as loaded with aspirin and Plavis. [place] [facility]. CAD (coronary artery disease) (Chronic 10/17/13) S/P MN x 2 in 2002. S/P PCI and stent procedures for total of six stents in the intervening 11 years. MPI at [facility] in 06/15/13, negative for ischemia. Cardiac cath in fall showed no flow-limiting lesions; no further intervention. Chest pain (Acute) newly diagnosed with Afib. Goes in and out of afib Right sided weakness (Acute) Pulmonary nodules (Chronic) Atrial fibrillation (Chronic) Stroke (Chronic) Abdominal pain (Acute) Medical History Laceration of finger of left hand Trigger thumb, left thumb Headache Diverticulitis Trigger finger, right middle finger Trigger finger, right index finger Erectile disorder, acquired, generalized, severe Acute epididymo-orchitis Muscle wasting and atrophy, not elsewhere classified, other site Olecranon bursitis of right elbow Superficial foreign body of right elbow Right elbow pain Recurrent bilateral inguinal hernia Penile pain Umbilical hernia Inguinal hernia Spermatocele Lipoma of back Duodenal ulcer Diverticulosis Occipital headache Tubular adenoma of colon (08/03/17) Renal cell carcinoma of left kidney (10/01/16) Ischemic stroke 2017 Hx of adenomatous polyp of colon Esophagitis Tobacco use Back pain, chronic Dysesthesia History of kidney cancer Gastritis Dyspepsia Anemia Dyslipidemia Hemiplegia Sleep apnea Depression with anxiety Dizziness Surgical History Trigger finger, right ring finger S/P Release: 01/05/2022 Trigger finger, left middle finger S/P Release: 01/05/2022 History of back surgery partial fusion Hx of carpal tunnel repair R side Bilateral carpal tunnel syndrome S/P B/L ECTR: 11/25/2020 Hx of tonsillectomy History of hernia repair Olecranon bone spur s/p debridement on 07/27/2019. R elbow Hx of appendectomy History of loop recorder placed a couple months ago per pt 2019 under left chest. History of radiofrequency ablation procedure for cardiac arrhythmia cardiac cath 2013, 9 stents over the years since 2002. Jul or Aug was last stent put in per pt. Partial Nephrectomy left side for renal cell cancer. Has yearly CT scan. 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 EGD - MAC (08/03/17) Colonoscopy - MAC (08/03/17) 10/2021 - repeat in 5 years. Social History Smoking/Tobacco Use Status: Current every day Tobacco Type: cigarettes Smoking packs per day: 1 Smoking cigarettes per day: 20.0 Years smoked: 46 Smoking pack-years: 46.00 Tobacco: How many years used: 47 Smoking risk assessment performed?: Yes Alcohol Intake: current Alcohol Intake frequency: a few times a month Alcohol type: beer Drug use: Never Substance use type: does not use Household members: spouse and children Housing: house Number of Children: 1 Pets and animals: Yes Pets and animals: cat(s) and dog(s) Current gender identity: male What is your relationship status?: Panel score (0-1 are the most socially isolated patients): 1 What type of physical activity do you participate in: none Seatbelt use: sometimes Do you feel safe at home: Yes Do you feel safe in your relationship?: Yes Anemia profile Hgb 14.1 g/dL (13.5-17.5) 09/11/24 Hct 43.3 % (40.0-50.0) 09/11/24 MCV 94 fL (80-95) 09/11/24 RDW 14.6 % (11.8-14.1) H 09/11/24 Basic Metabolic Sodium 141 mmol/L (136-145) 09/11/24 Potassium 4.5 mmol/L (3.5-5.1) 09/11/24 Chloride 109 mmol/L (98-107) H 09/11/24 Carbon Dioxide 20.9 mmol/L (21.0-32.0) L 09/11/24 BUN 19 mg/dL (7-18) H 09/11/24 Creatinine 1.4 mg/dL (0.70-1.30) H 09/11/24 Estimated GFR/1.73 m2 56.90 (mL/min/1.73m2) 02/17/22 Glucose 136 mg/dL (74-106) H 09/11/24 CBC White Blood Count 5.44 10^3/uL (4.4-10.8) 09/11/24 Red Blood Count 4.62 10^6/uL (4.36-5.78) 09/11/24 Hemoglobin 14.1 g/dL (13.5-17.5) 09/11/24 Hematocrit 43.3 % (40.0-50.0) 09/11/24 Mean Corpuscular Volume 94 fL (80-95) 09/11/24 Mean Corpuscular Hemoglobin 30.5 pg (27.0-33.0) 09/11/24 Mean Corpuscular Hemoglobin Concent 32.6 % (32.0-36.0) 09/11/24 Red Cell Distribution Width 14.6 % (11.8-14.1) H 09/11/24 Platelet Count 320 10^3/uL (130-400) 09/11/24 Mean Platelet Volume 8.8 fL (8.0-11.0) 09/11/24 Neutrophils % 80.1 % 09/11/24 Lymphocytes % 9.9 % 09/11/24 Monocytes % 9.4 % 09/11/24 Eosinophils % 0.0 % 09/11/24 Basophils % 0.4 % 09/11/24 Immature Granulocytes % 0.2 % 09/11/24 Comprehensive Metabolic Panel Sodium 141 mmol/L (136-145) 09/11/24 18:45 Potassium 4.5 mmol/L (3.5-5.1) 09/11/24 18:45 Chloride 109 mmol/L (98-107) H 09/11/24 18:45 Carbon Dioxide 20.9 mmol/L (21.0-32.0) L 09/11/24 18:45 BUN 19 mg/dL (7-18) H 09/11/24 18:45 Creatinine 1.4 mg/dL (0.70-1.30) H 09/11/24 18:45 Estimated GFR/1.73 m2 56.90 (mL/min/1.73m2) 02/17/22 05:10 Glucose 136 mg/dL (74-106) H 09/11/24 18:45 Calcium 7.9 mg/dL (8.5-10.1) L 09/11/24 18:45 Conjugated Bilirubin 0.08 mg/dL (0.00-0.20) 10/09/17 13:30 Total Bilirubin 0.30 mg/dL (0.2-1.0) 09/11/24 06:27 ALT 20 U/L (16-63) 09/11/24 06:27 AST 17 U/L (15-37) 09/11/24 06:27 Alkaline Phosphatase 94 U/L (46-116) 09/11/24 06:27 Total Protein 7.6 g/dL (6.4-8.2) 09/11/24 06:27 Albumin 3.6 g/dL (3.4-5.0) 09/11/24 06:27 Diabetes results Hemoglobin A1c 6.1 % (4.5-6.2) 04/29/18 Glucose 136 mg/dL (74-106) H 09/11/24 Total Cholesterol 118 mg/dL (<200) 04/25/23 LDL Cholesterol, Calc 45 mg/dL (<100) 04/25/23 LDL Cholesterol Direct 112 mg/dL (<100) H 04/29/18 HDL Cholesterol 32 mg/dL (40-60) L 04/25/23 Triglycerides 208 mg/dL (<150) H 04/25/23 BUN 19 mg/dL (7-18) H 09/11/24 Creatinine 1.4 mg/dL (0.70-1.30) H 09/11/24 Estimated GFR/1.73 m2 56.90 (mL/min/1.73m2) 02/17/22 Est GFR (CKD-EPI 2020) 57.90 (mL/min/1.73m2) 09/11/24 Sodium 141 mmol/L (136-145) 09/11/24 Potassium 4.5 mmol/L (3.5-5.1) 09/11/24 Chloride 109 mmol/L (98-107) H 09/11/24 Carbon Dioxide 20.9 mmol/L (21.0-32.0) L 09/11/24 Calcium 7.9 mg/dL (8.5-10.1) L 09/11/24 AST 17 U/L (15-37) 09/11/24 ALT 20 U/L (16-63) 09/11/24 Total Protein 7.6 g/dL (6.4-8.2) 09/11/24 Albumin 3.6 g/dL (3.4-5.0) 09/11/24 TSH 1.37 uIU/mL (0.36-3.74) 11/04/23 Lipid profile Total Cholesterol 118 mg/dL (<200) 04/25/23 HDL Cholesterol 32 mg/dL (40-60) L 04/25/23 LDL Cholesterol, Calc 45 mg/dL (<100) 04/25/23 LDL Cholesterol Direct 112 mg/dL (<100) H 04/29/18 Triglycerides 208 mg/dL (<150) H 04/25/23 Time Spent with Patient Time Spent with Patient: >85 minutes Time was spent: preparing to see the patient(eg.review tests), obtaining and/or reviewing separately otained hiistory, ordering medications,tests, procedures, referring, communicating with other health senior care provider, indepentently interpreting results, counseling the patient, care coordination and other
[2024-09-11 19:17] LABS: Anion Gap 11.1 mmol/L (3-11); BUN 19 mg/dL (7-18); CO2 20.9 mmol/L (21.0-32.0); CREATININE 1.4 mg/dL (0.70-1.30); Calcium 7.9 mg/dL (8.5-10.1); Chloride 109 mmol/L (98-107); Glucose 136 mg/dL (74-106); Magnesium 1.6 mg/dL (1.8-2.4); Potassium 4.5 mmol/L (3.5-5.1); Sodium 141 mmol/L (136-145); Troponin I 5 ng/L (<or=76)
[2024-09-11] MEDS: Normal Saline 500 ML 1000 ML IV (19:30)
[2024-09-11] MEDS: Pantoprazole 40 MG VIAL IVP (20:15)
--- NOTE | 2024-09-11 21:07 | W.PC.ACHO ---
Registration Status: Primary Language: Preferred Language: ED Information & Data Chief Complaint Male Reproductive Problem 09/11/24 06:26 Chief Complaint Male Reproductive Problem 09/11/24 06:24 Triage Note sudden onset right groin 09/11/24 06:19 testicular pain this morning , started while at rest, no recent illness or injury, constant, sharp, 10/10, pt appears very uncomfortable Medical / Surgical History (Last Reviewed 09/11/24 @ 13:48 by Beverley Chase DO) Laceration of finger of left hand Trigger thumb, left thumb Headache Diverticulitis Trigger finger, right middle finger Trigger finger, right index finger Erectile disorder, acquired, generalized, severe Acute epididymo-orchitis Muscle wasting and atrophy, not elsewhere classified, other site Olecranon bursitis of right elbow Superficial foreign body of right elbow Right elbow pain Recurrent bilateral inguinal hernia Penile pain Umbilical hernia Inguinal hernia Spermatocele Lipoma of back Duodenal ulcer Diverticulosis Occipital headache Tubular adenoma of colon (08/03/17) Renal cell carcinoma of left kidney (10/01/16) Ischemic stroke Hx of adenomatous polyp of colon Esophagitis Tobacco use Back pain, chronic Dysesthesia History of kidney cancer Gastritis Dyspepsia Anemia Dyslipidemia Hemiplegia Sleep apnea Depression with anxiety Dizziness (Last Reviewed 09/11/24 @ 13:48 by Beverley Chase DO) Trigger finger, right ring finger Trigger finger, left middle finger History of back surgery Hx of carpal tunnel repair Bilateral carpal tunnel syndrome Hx of tonsillectomy History of hernia repair Olecranon bone spur Hx of appendectomy History of loop recorder History of radiofrequency ablation procedure for cardiac arrhythmia cardiac cath Partial Nephrectomy Repair of inguinal hernia EGD - MAC (08/03/17) Colonoscopy - MAC (08/03/17) Most Recent Vital Signs Temperature 36.7 C 09/11/24 17:28 Temperature Source Temporal Artery Scan 09/11/24 16:39 Pulse 64 09/11/24 20:23 Pulse 64 09/11/24 20:46 Respiratory Rate 20 09/11/24 20:46 Respiratory Effort Non-Labored, Mechanically Ventilated 09/11/24 16:39 Respiratory Depth Normal 09/11/24 16:39 Respiratory Pattern Normal 09/11/24 16:39 Blood Pressure 106/72 09/11/24 20:46 Blood Pressure Mean 77 09/11/24 20:23 Blood Pressure Position Supine 09/11/24 07:25 Pulse Oximetry 95 09/11/24 20:46 Respiratory End-tidal CO2 43 09/11/24 20:46 Oxygen Delivery Method Mechanical Ventilator 09/11/24 16:39 Oxygen Flow Rate 0 09/11/24 16:39 Fraction of Inspired Oxygen (FIO2) 40 09/11/24 20:46 Pain Level 10 09/11/24 13:41 Comment MD aware of VS, 2nd bolus NS ordered 09/11/24 09:51 Arterial Systolic 100 09/11/24 20:31 Arterial Diastolic 48 09/11/24 20:31 Arterial Mean 67 09/11/24 20:31 Allergies oxycodone Allergy (Mild, Verified 09/11/24 06:23) unknown GI upset atorvastatin calcium (From Lipitor) Adverse Reaction (Intermediate, Verified 09/11/24 06:23) liver problems niacin Adverse Reaction (Mild, Verified 09/11/24 06:23) flushing body adhesive from monitor tabs Allergy (Intermediate, Uncoded 09/11/24 06:23) jones Precautions Isolation Standard precaution 09/11/24 06:26 Active Medications Generic Name Dose Route Start Last Admin Trade Name Freq PRN Reason Stop Dose Admin Fentanyl 100 mcg 09/11/24 16:54 09/11/24 20:16 Fentanyl 100 Mcg/2 Ml Vial IVP 10/11/24 16:53 50 mcg Q1H PRN PRN Administration Sodium Chloride 1,000 mls @ 75 mls/hr 09/11/24 10:15 09/11/24 18:50 Saline 1000ml Bag IV 75 mls/hr INFUSION KEHINDE Infusion Piperacillin Sod/Tazobactam 50 mls @ 100 mls/hr 09/11/24 14:00 09/11/24 20:24 Sod 3.375 gm/ Sodium Chloride IVPB 100 mls/hr Q6H KEHINDE Administration Acetaminophen 1,000 mg in 100 mls @ 400 mls/hr 09/11/24 10:00 09/11/24 19:40 Ofirmev IVPB Infused Q6H KEHINDE Infusion Famotidine 20 mg in 50 mls @ 200 mls/hr 09/11/24 10:00 09/11/24 11:28 Pepcid Premixed Bag IV Infused Q12H KEHINDE Infusion Propofol 1,000 mg in 100 mls @ 29.801 mls/hr 09/11/24 17:00 12/17/24 18:55 Diprivan IV 10/11/24 16:59 125.83 mcg/kg/min INFUSION KEHINDE 75 mls/hr Administration Protocol 50 MCG/KG/MIN Norepinephrine Bitartrate 8 mg in 250 mls @ 11.25 mls/hr 09/11/24 17:30 09/11/24 17:30 IV 10/11/24 17:29 6 mcg/min INFUSION KEHINDE 11.25 mls/hr Administration Protocol 6 MCG/MIN Pantoprazole Sodium 40 mg 09/11/24 18:00 09/11/24 20:15 Pantoprazole 40 Mg Vial IVP 10/11/24 17:59 40 mg Q24H KEHINDE Administration IV IV Catheter Type [Left Upper Mid-line Peripheral Line arm] IV Catheter Type [Right Saline Lock Antecubital] IV Catheter Gauge [Right 20 Radial] IV Catheter Gauge [Left Upper 18 arm] IV Catheter Gauge [Right 18 Antecubital] Diagnostics 09/11/24 09/11/24 09/11/24 Range/Units 18:45 18:45 18:45 WBC 5.44 (4.4-10.8) 10^3/uL RBC 4.62 (4.36-5.78) 10^6/uL Hgb 14.1 (13.5-17.5) g/dL Hct 43.3 (40.0-50.0) % MCV 94 D (80-95) fL MCH 30.5 (27.0-33.0) pg MCHC 32.6 (32.0-36.0) % RDW 14.6 H (11.8-14.1) % Plt Count 320 (130-400) 10^3/uL MPV 8.8 (8.0-11.0) fL Immature Gran % 0.2 % Neutrophils % 80.1 % Lymphocytes % 9.9 % Monocytes % 9.4 % Eosinophils % 0.0 % Basophils % 0.4 % Nucleated RBC % 0.0 (0.0-0.3) % Absolute Neutrophils 4.36 (1.2-6.7) 10^3/uL Absolute Lymphocytes 0.54 L (1.2-3.4) 10^3/uL Absolute Monocytes 0.51 (0.1-0.8) 10^3/uL Absolute Eosinophils 0.00 (0.0-0.7) 10^3/uL Absolute Basophils 0.02 (0.0-0.2) 10^3/uL ABG Sample Site ABG pH (7.35-7.45) ABG pCO2 (35-45) mmHg ABG pO2 (80-105) mmHg ABG HCO3 (22-26) mmol/L ABG Total CO2 (23-27) mmol/L ABG O2 Saturation (95-98) % ABG Base Excess (-2-3) mmol/L FiO2 % Sodium 141 (136-145) mmol/L Potassium 4.5 (3.5-5.1) mmol/L Chloride 109 H (98-107) mmol/L Carbon Dioxide 20.9 L (21.0-32.0) mmol/L Anion Gap 11.1 H (3-11) mmol/L BUN 19 H (7-18) mg/dL Creatinine 1.4 H (0.70-1.30) mg/dL Est GFR (CKD-EPI 2020) 57.90 (mL/min/1.73m2) Glucose 136 H (74-106) mg/dL Calcium 7.9 L (8.5-10.1) mg/dL Magnesium 1.6 L Cancelled Total Bilirubin (0.2-1.0) mg/dL AST (15-37) U/L ALT (16-63) U/L Alkaline Phosphatase (46-116) U/L Troponin I 5 Cancelled C-Reactive Protein (<or=0.5) mg/dL Total Protein (6.4-8.2) g/dL Albumin (3.4-5.0) g/dL Lipase (<78) U/L Procalcitonin ng/mL Urine Color Urine Clarity Urine pH Ur Specific [place] Urine Protein Urine Ketones Urine Blood Urine Nitrite Urine Bilirubin Urine Urobilinogen Ur Leukocyte Esterase Urine Glucose ABO/Rh Antibody Screen 09/11/24 09/11/24 09/11/24 Range/Units 18:15 14:22 13:07 WBC (4.4-10.8) 10^3/uL RBC (4.36-5.78) 10^6/uL Hgb (13.5-17.5) g/dL Hct (40.0-50.0) % MCV (80-95) fL MCH (27.0-33.0) pg MCHC (32.0-36.0) % RDW (11.8-14.1) % Plt Count (130-400) 10^3/uL MPV (8.0-11.0) fL Immature Gran % % Neutrophils % % Lymphocytes % % Monocytes % % Eosinophils % % Basophils % % Nucleated RBC % (0.0-0.3) % Absolute Neutrophils (1.2-6.7) 10^3/uL Absolute Lymphocytes (1.2-3.4) 10^3/uL Absolute Monocytes (0.1-0.8) 10^3/uL Absolute Eosinophils (0.0-0.7) 10^3/uL Absolute Basophils (0.0-0.2) 10^3/uL ABG Sample Site Arterial Line Right Radial ABG pH 7.23 L 7.22 L (7.35-7.45) ABG pCO2 48 H 50 H (35-45) mmHg ABG pO2 98 170 H (80-105) mmHg ABG HCO3 20 L 20 L (22-26) mmol/L ABG Total CO2 18 L 19 L (23-27) mmol/L ABG O2 Saturation 97 100 H (95-98) % ABG Base Excess -8 L -8 L (-2-3) mmol/L FiO2 40 85 % Sodium (136-145) mmol/L Potassium (3.5-5.1) mmol/L Chloride (98-107) mmol/L Carbon Dioxide (21.0-32.0) mmol/L Anion Gap (3-11) mmol/L BUN (7-18) mg/dL Creatinine (0.70-1.30) mg/dL Est GFR (CKD-EPI 2020) (mL/min/1.73m2) Glucose (74-106) mg/dL Calcium (8.5-10.1) mg/dL Magnesium Total Bilirubin (0.2-1.0) mg/dL AST (15-37) U/L ALT (16-63) U/L Alkaline Phosphatase (46-116) U/L Troponin I C-Reactive Protein (<or=0.5) mg/dL Total Protein (6.4-8.2) g/dL Albumin (3.4-5.0) g/dL Lipase (<78) U/L Procalcitonin ng/mL Urine Color Urine Clarity Urine pH Ur Specific [place] Urine Protein Urine Ketones Urine Blood Urine Nitrite Urine Bilirubin Urine Urobilinogen Ur Leukocyte Esterase Urine Glucose ABO/Rh O Positive Antibody Screen NEGATIVE 09/11/24 09/11/24 Range/Units 07:10 06:27 WBC 11.92 H (4.4-10.8) 10^3/uL RBC 4.57 (4.36-5.78) 10^6/uL Hgb 13.9 (13.5-17.5) g/dL Hct 41.2 (40.0-50.0) % MCV 90 (80-95) fL MCH 30.4 (27.0-33.0) pg MCHC 33.7 (32.0-36.0) % RDW 13.9 (11.8-14.1) % Plt Count 328 (130-400) 10^3/uL MPV 8.8 (8.0-11.0) fL Immature Gran % 0.4 % Neutrophils % 68.7 % Lymphocytes % 20.6 % Monocytes % 8.5 % Eosinophils % 1.4 % Basophils % 0.4 % Nucleated RBC % 0.0 (0.0-0.3) % Absolute Neutrophils 8.19 H (1.2-6.7) 10^3/uL Absolute Lymphocytes 2.46 (1.2-3.4) 10^3/uL Absolute Monocytes 1.01 H (0.1-0.8) 10^3/uL Absolute Eosinophils 0.17 (0.0-0.7) 10^3/uL Absolute Basophils 0.05 (0.0-0.2) 10^3/uL ABG Sample Site ABG pH (7.35-7.45) ABG pCO2 (35-45) mmHg ABG pO2 (80-105) mmHg ABG HCO3 (22-26) mmol/L ABG Total CO2 (23-27) mmol/L ABG O2 Saturation (95-98) % ABG Base Excess (-2-3) mmol/L FiO2 % Sodium 140 (136-145) mmol/L Potassium 4.1 (3.5-5.1) mmol/L Chloride 104 (98-107) mmol/L Carbon Dioxide 23.8 (21.0-32.0) mmol/L Anion Gap 12.2 H (3-11) mmol/L BUN 13 (7-18) mg/dL Creatinine 1.2 (0.70-1.30) mg/dL Est GFR (CKD-EPI 2020) 69.66 (mL/min/1.73m2) Glucose 137 H (74-106) mg/dL Calcium 9.1 (8.5-10.1) mg/dL Magnesium Total Bilirubin 0.30 (0.2-1.0) mg/dL AST 17 (15-37) U/L ALT 20 (16-63) U/L Alkaline Phosphatase 94 (46-116) U/L Troponin I C-Reactive Protein 0.95 H (<or=0.5) mg/dL Total Protein 7.6 (6.4-8.2) g/dL Albumin 3.6 (3.4-5.0) g/dL Lipase 36 (<78) U/L Procalcitonin < 0.10 ng/mL Urine Color Cancelled Urine Clarity Cancelled Urine pH Cancelled Ur Specific [place] Cancelled Urine Protein Cancelled Urine Ketones Cancelled Urine Blood Cancelled Urine Nitrite Cancelled Urine Bilirubin Cancelled Urine Urobilinogen Cancelled Ur Leukocyte Esterase Cancelled Urine Glucose Cancelled ABO/Rh Antibody Screen 09/11/24 14:40 Surgical Culture - Pending Peritoneal Gram Stain - Final 09/11/24 14:40 Anaerobic Culture - Pending Peritoneal 09/11/24 10:00 Blood Culture - Pending Blood 09/11/24 09:45 Blood Culture - Pending Blood Intake and Output - 24 Hour Total 09/11/24 06:15 thru 09/11/24 19:40 Intake Total 3646.551 Output Total 412 Balance 3234.551 Weight 99 kg Intake: IV 3646.551 Output: Drainage 87 Left Abdomen 87 Urine 275 Estimated Blood Loss 50 Other: Urine Color Dark Yana Urine Appearance Clear Comment patient scans ranged from 19-60mls Urinary Catheter Urinary Catheter Date of 09/11/24 Insertion [Urethral (Fuchs)] Time of insertion [Urethral ( 14:15 Fuchs)] Falls Risk Assessment History of Falls No History 09/11/24 06:31 Contributing Factors No Factors 09/11/24 06:31 Ambulatory Aids Independent 09/11/24 06:31 Tubes/Lines None 09/11/24 06:31 Gait Evaluation No gait disturbance 09/11/24 06:31 Cognition No cognitive impairment 09/11/24 06:31 Fall Total Score 0 09/11/24 06:31 Level of Risk Standard/Low Risk 09/11/24 06:31 Restraint Information Note Patient on ventilator. Restrained w/ soft restraints to ensure ET tube is not removed Problems (Last Reviewed 09/11/24 @ 13:48 by Beverley Chase DO) Sepsis (Acute) Sepsis associated hypotension (Acute) Hypotension (Acute) Peritonitis (Acute) Perforation of sigmoid colon due to diverticulitis (Acute) Diverticulitis of colon with perforation (Acute) CAD (coronary artery disease) (Chronic 10/17/13) Atrial fibrillation (Chronic) v v v v v v v v v Sending and/or Receiving Nurses: Please use comment section below to note any information pertinent to the patient hand-off not included above. Information / Comments: Report received from: Khadijah Gillette RN @[phone] All questions answered
[2024-09-11] MEDS: Normal Saline Flush 10 ML SYR IVP (21:28)
--- NOTE | 2024-09-12 15:22 | W.ANESPOSTOP ---
Postoperative Evaluation Date, Time and Location Date Performed: 09/12/24 Time Performed: 15:23 Patient Location: Intensive Care Unit (Pt was discharged to an OSH for a higher level of care over night. ) Vital Signs Most Recent Imported Vital Signs: Most Recent Vital Signs Temp Pulse Resp BP Pulse Ox 36.7 C 64 20 106/72 95 09/11/24 17:28 09/11/24 20:23 09/11/24 20:46 09/11/24 20:46 09/11/24 20:46 Pain Score Most Recent Pain Score: Most Recent Pain Score Pain Level 10 09/11/24 13:41 Assessment Mental Status: Other Airway and Respiratory Function: Other Cardiovascular Function: Receiving care as an inpatient Hydration Status: Adequately Hydrated Nausea & Vomiting: No Nausea or Vomiting Pain: Other Peripheral Nerve Block: Patient did not receive a nerve block
== END 2024-09-11 20:40 | disposition short-term general hospital (02) | DRG 853 ==
LOC: ER 11:49 → SUR 13:39 → ICU 18:12
PROVIDERS: Emergency Medicine; Nurse Anesthetist, Certified Registered; Admitting Provider Surgery; Emergency Provider Emergency Medicine; PCP Family Medicine; Visit Provider Surgery
PROC: 0DTN0ZZ Resection of Sigmoid Colon, Open Approach (ICD-10-PCS; CPT 44320; principal; 2024-09-11 14:15)
PROC: 0DTN0ZZ Resection of Sigmoid Colon, Open Approach (ICD-10-PCS; CPT 49000; 2024-09-11 14:15)
DX: K65.0 Generalized (acute) peritonitis (principal); K57.20 Diverticulitis of large intestine with perforation and abscess without bleeding; N17.9 Acute kidney failure, unspecified; A41.9 Sepsis, unspecified organism; E87.20 Acidosis, unspecified; J44.9 Chronic obstructive pulmonary disease, unspecified; F17.210 Nicotine dependence, cigarettes, uncomplicated; I48.0 Paroxysmal atrial fibrillation; G47.30 Sleep apnea, unspecified; I25.119 Atherosclerotic heart disease of native coronary artery with unspecified angina pectoris; E78.5 Hyperlipidemia, unspecified; Z86.73 Personal history of transient ischemic attack (TIA), and cerebral infarction without residual deficits; I25.2 Old myocardial infarction; R91.8 Other nonspecific abnormal finding of lung field; D64.9 Anemia, unspecified; F41.8 Other specified anxiety disorders; Z90.5 Acquired absence of kidney; Z85.528 Personal history of other malignant neoplasm of kidney; Z95.5 Presence of coronary angioplasty implant and graft
CPT/HCPCS: 44143; 36410; 36620; 00123; 36415; 51798; 80048; 80053; 82805; 83690; 84145; 86850; 86900; 86901; 87040; 87077; 96361; 96365; 96367; 96375; 96376; 99223; 99285; 74177; 81003; 83735; 84484; 85025; 86140; 87070; 87075; 87186; 87205; 88307; 94002; C9290; J0131; J0665; J1100; J1171; J2250; J2270; J2405; J2470; J2543; J2597; J2598; J2704; J3010; J3490; J7168

== ENCOUNTER 2024-10-06 17:16 | Emergency (ER) | payer MEDICARE, SELFPAY ==
[2024-10-06] VITALS (11 sets, daily range): BP systolic 138–164; BP diastolic 73–78; PULSE 61–77; RESP 15–23; TEMP 36.5–36.6; O2SAT 93–97
--- NOTE | 2024-10-06 17:55 | W.ED.GENAD ---
Discharge Plan Disposition Patient Disposition: Home Discharge Details Clinical Impression: Pneumonia, Postoperative abdominal pain Primary Care Provider: Aleksey Desouza ED Provider: Anish Donis Home Meds and New Rx's Prescriptions: New doxycycline hyclate 100 mg capsule 100 mg PO BID 7 Days Qty: 14 0RF No Action Xarelto 20 mg tablet 20 mg PO DAILY Rx Instructions: must administer with evening meal ranolazine [Ranexa] 500 mg tablet extended release 12 hr 500 mg PO BID lansoprazole [Prevacid SoluTab] 30 mg tablet,disintegrat, delay rel 30 mg PO BID isosorbide mononitrate 120 mg tablet extended release 24 hr 120 mg PO DAILY clopidogrel [Plavix] 75 mg tablet 75 mg PO DAILY Patient Comments: 07/26/19 per pt I think my last dose was Monday 07/23 but it could have been Tuesday I don't remember. sertraline 50 mg tablet 50 mg PO DAILY nystatin 100,000 unit/mL suspension 100,000 unit buccal QID 7 Days Qty: 28 4RF Rx Instructions: administer 1/2 of dose in each side of the mouth carvedilol 3.125 mg tablet 6.25 mg PO BID nitroglycerin [Nitrostat] 0.4 mg Tablet, Sublingual 0.4 mg sublingual Q5 MIN PRN X3 PRN (Reason: chest pain) Qty: 0 0RF ibuprofen 600 mg tablet 600 mg PO TID PRN (Reason: pain) Qty: 90 0RF hydrocodone-acetaminophen 5-325 mg tablet 1 tab PO TID Patient Comments: TAKE 1 TABLET BY MOUTH THREE TIMES DAILY NEEDED FOR PAIN Rosuvastatin Calcium 40 MG tablet 40 mg PO DAILY amlodipine 10 mg tablet 10 mg PO DAILY bupropion HCl 150 mg tablet extended release 24 hr 300 mg PO DAILY Discharge Instructions Instructions: Pneumonia, Adult ED Additional Instructions: Please return to the emergency department immediately for any new or significant worsening of symptoms otherwise keep all of your follow-up and further imaging appointments later this week. Referrals: Aleksey Desouza MD [Primary Care Provider] - [facility] General Mode of arrival: ambulatory. Date/Time Provider Initiated Documentation: 10/06/24 17:31. Limitations to Documentation: no limitations. Information obtained by: patient, RN notes reviewed and old records reviewed. History of Present Illness 59 year old M presents to the emergency department with the chief complaint of Chills abdominal pain, described as moderate, Quality is described as aching, and is localized to the abdomen. Patient reports no radiation. Patient started experiencing this day(s) (2) and it has been constant. No relieving factors improve symptom(s), No exacerbating factors reported . Patient notes cough and malaise. Patient did receive the following treatments prior to arrival, none Related Data Home Medications ?Medication ?Instructions ?Recorded ?Confirmed Rosuvastatin Calcium 40 mg PO DAILY 05/09/18 10/06/24 carvedilol 3.125 mg tablet 6.25 mg PO BID 06/14/19 10/06/24 amlodipine 10 mg tablet 10 mg PO DAILY 06/29/19 10/06/24 nitroglycerin 0.4 mg sublingual 0.4 mg sublingual Q5 MIN PRN X3 11/02/19 10/06/24 tablet (Nitrostat) PRN chest pain #0 tabs ranolazine 500 mg tablet,extended 500 mg PO BID 09/08/20 10/06/24 release,12 hr (Ranexa) rivaroxaban 20 mg tablet (Xarelto) 20 mg PO DAILY 09/08/20 10/06/24 bupropion HCl 150 mg 24 hr tablet, 300 mg PO DAILY 11/10/20 10/06/24 extended release clopidogrel 75 mg tablet (Plavix) 75 mg PO DAILY 09/29/21 10/06/24 isosorbide mononitrate 120 mg 120 mg PO DAILY 09/29/21 10/06/24 tablet,extended release 24 hr lansoprazole 30 mg delayed 30 mg PO BID 09/29/21 10/06/24 release,disintegrating tablet (Prevacid SoluTab) sertraline 50 mg tablet 50 mg PO DAILY 09/29/21 10/06/24 ibuprofen 600 mg tablet 600 mg PO TID PRN pain #90 tabs 01/05/22 10/06/24 hydrocodone 5 mg-acetaminophen 325 1 tab PO TID 02/17/22 10/06/24 mg tablet nystatin 100,000 unit/mL oral 100,000 unit buccal QID 7 days #28 10/04/24 10/06/24 suspension mL doxycycline hyclate 100 mg capsule 100 mg PO BID 7 days #14 caps 10/06/24 Previous Rx's ?Medication ?Instructions ?Recorded nitroglycerin 0.4 mg sublingual 0.4 mg sublingual Q5 MIN PRN X3 11/02/19 tablet (Nitrostat) PRN chest pain #0 tabs ibuprofen 600 mg tablet 600 mg PO TID PRN pain #90 tabs 01/05/22 nystatin 100,000 unit/mL oral 100,000 unit buccal QID 7 days #28 10/04/24 suspension mL doxycycline hyclate 100 mg capsule 100 mg PO BID 7 days #14 caps 10/06/24 Allergies Allergy/AdvReac Type Severity Reaction Status Date / Time oxycodone Allergy Mild unknown Verified 10/06/24 17:30 atorvastatin calcium (From AdvReac Intermediate liver Verified 10/06/24 17:30 Lipitor) problems niacin AdvReac Mild flushing Verified 10/06/24 17:30 adhesive from monitor tabs Allergy Intermediate jones Uncoded 10/06/24 17:30 General Stated Complaint: Abd Prob MARQUIS: 3 Review of Systems Constitutional Constitutional: Reports chills, Reports fatigue, Denies fever(s), Denies headache(s) and Reports malaise ENT Ears, Nose, Mouth, and Throat: Denies headache(s) Cardiovascular Cardiovascular: Denies chest pain, Denies edema, Denies irregular heart rhythm and Denies dyspnea Respiratory Respiratory: Denies chest congestion, Reports cough, Denies excessive phlegm production, Denies pain with cough and Denies dyspnea Gastrointestinal Gastrointestinal: Reports as per HPI, Reports abdominal pain, Denies nausea and Denies vomiting Integumentary/Breasts Skin/Breast: Denies rash Neurologic Neurologic: Denies headache(s) Endocrine Endocrine: Reports fatigue Exam Const General: cooperative Orientation: alert, awake and oriented x3 Resp Effort & Inspection: normal respiratory effort and able to speak in complete sentences Auscultation: crackles on the right at the base Cardio Rate: regular rate Rhythm: regular rhythm Heart Sounds: S1 normal and S2 normal GI Palpation: soft, guarding in the LUQ and in the RUQ, tender in the epigastrum, in the LUQ and in the RUQ and other (Colostomy is present in the left lower quadrant, normal-appearing ostomy) Back/Spine/Pelvis Back: no CVA tenderness Neuro General: patient alert, patient awake, patient oriented x3, gait normal and moves all extremities Course Vital Signs Vital signs: Vital Signs Temperature 36.5 C 10/06/24 17:21 Pulse 77 10/06/24 17:21 Respiratory Rate 16 10/06/24 17:21 Blood Pressure 138/78 10/06/24 17:21 Pulse Oximetry 94 10/06/24 17:21 Temperature 36.5 C 10/06/24 17:37 Temperature Source Oral 10/06/24 17:37 Pulse 77 10/06/24 17:37 Respiratory Rate 16 10/06/24 17:37 Blood Pressure 138/78 10/06/24 17:37 Blood Pressure Position Sitting 10/06/24 17:37 Pulse Oximetry 94 10/06/24 17:37 Oxygen Delivery Method Room Air 10/06/24 17:37 Oxygen Flow Rate 0 10/06/24 17:37 Pain Level 5 10/06/24 17:37 Lab/Test Results Lab/Test Results: 10/06/24 17:48 Blood Blood Culture - Pending 10/06/24 17:48 Blood Blood Culture - Pending Medical Decision Making Patient presenting to the emergency department for chills malaise and not feeling well with increased abdominal pain. He reports everything is started a couple days ago in regards to worsening but has had problems since his emergent surgery on 1216 which she was transferred to another facility and he states he had developed pneumonia while at that facility and as soon as he felt better signed himself out to go home. He states that he has been doing okay with home health but then over the last couple days feeling unwell. Patient states chills but no fever and general symptoms beyond abdominal pain. Does state some decreased ostomy output but still functioning appropriately with no redness or pain to ostomy site and of itself. Patient has history of A-fib, CAD, diverticulitis, right-sided weakness secondary to stroke, COPD, is vaccinated for COVID and flu. Physical exam shows rate controlled A-fib, stable vital signs, slight crackles in right lower lobe, tenderness to palpation of right and left upper quadrants epigastric and some to right lower quadrant exam otherwise nonfocal. Given patient's recent surgery will perform blood work including cultures, will check for viral illnesses, will perform chest x-ray and CT imaging will note that patient recently had pneumonia so may not be acute findings if findings are noted on chest x-ray. Given that patient's vitals are stable he is afebrile we will hold off on any interventions until results have returned. Reviewed patient's labs which does show an anemia which may be secondary to significant surgery he had recently but nonemergent lactate slightly elevated at 1.7 no significant leukocytosis noted calcium slightly low at 8.4 magnesium slightly low at 1.7 so we will replete orally lipase is slightly elevated at 171 procalcitonin negative urine negative viral swabs negative. Chest x-ray shows some signs of bilateral basilar interstitial infiltrates with radiology noting either interstitial edema or pneumonia. CT imaging consistent with postoperative changes, potential pneumonia versus pleural effusion otherwise no acute findings. Given that patient states that he is feeling worse acutely and that when he left the other facility he was not given antibiotics for his pneumonia to continue at home we will treat with antibiotics but I do feel that this could be residual changes from previous pneumonia that was appropriately treated. Patient states he has follow-up with primary care provider in 2 days and surgery in less than 1 week. Patient encouraged to return to the emergency department for any new or significant worsening of symptoms otherwise keep his follow-up. After discussion of diagnosis and plan of care patient has no further needs, questions, or concerns and states clear understanding to return to the emergency department for any worsening symptoms. This documentation was generated using [employer] dictation system, please disregard any oddities of phrase or misspellings. Imaging Data Radiologic Study: Imaging: CT Scan Radiologist's impression: Exam(s) CT ABDOMEN PELVIS W EXAM: CT ABDOMEN PELVIS W CLINICAL HISTORY: Postsurgical abdominal pain TECHNIQUE: Imaging Protocol: Axial computed tomography images with coronal and sagittal reformatted images were created and reviewed. CONTRAST MATERIAL: Intravenous: Omnipaque 350 Contrast volume:100 mL Oral: No COMPARISON: CT CT ABDOMEN PELVIS W from 09/11/2024 FINDINGS: ABDOMEN: Lung Bases: There is a tiny left pleural effusion and dependent atelectatic changes in the lung bases bilaterally. Liver: Normal density. There are few tiny hypodensities in the liver which are too small for further characterization but likely reflect small cysts. No suspicious hepatic masses are seen. Portal, Superior Mesenteric, and Splenic Veins: Unremarkable. Gallbladder and Biliary Tract: There is hyperdense material seen within the gallbladder likely reflecting vicarious excretion of contrast material no stones or biliary ductal dilatation is seen. Pancreas: Normal density, no abnormal calcifications or inflammatory process. Spleen: Normal. Adrenals: No masses seen. Kidneys: There again seen postsurgical changes in the left kidney. Calcifications are seen in the left renal pelvis. There is no ureterolithiasis or hydronephrosis. No masses seen. Abdominal Aorta: Abdominal portion non-dilated. Atherosclerotic calcification is present. Bowel: There is diverticulosis of the colon. The patient has had a resection of the sigmoid colon. There is a left lower quadrant colostomy. There are no findings to suggest acute diverticulitis. There is no evidence of bowel obstruction or bowel wall thickening. There is no evidence of appendicitis. Peritoneal Cavity: No ascites, collection or mesenteric inflammatory response. No free air. Lymph Nodes: Within normal limits. Bones: Within normal limits for the patient's age. Soft Tissues: There is a midline surgical defect present. There is a left lower quadrant colostomy. PELVIS: Bladder: Symmetric distention, no gross wall thickening. Reproductive Organs: Unremarkable as visualized. Lymph Nodes: Within normal limits. Bones: Within normal limits for the patient's age. IMPRESSION: 1. Interval partial sigmoid colon resection with a left lower quadrant colostomy. 2. Diverticulosis of the colon without evidence of acute diverticulitis. 3. No evidence of bowel obstruction. 4. Small left pleural effusion and bilateral basilar infiltrates which may represent atelectasis. Pneumonia cannot be excluded. Please correlate clinically. 5. Midline anterior abdominal wall surgical defect. No focal fluid collection is seen in the anterior abdominal wall to suggest an abscess. Radiologic Study #2: Imaging: X-Ray Radiologist's impression: Exam(s) XR CHEST 2V PA LATERAL EXAM: XR CHEST 2V PA LATERAL CLINICAL HISTORY: cough TECHNIQUE: 2D digital imaging was performed of the chest. Two images were obtained. PA and lateral views were obtained. COMPARISON: CR XR CHEST 2V PA LATERAL from 11/04/2023 FINDINGS: MEDIASTINUM: Normal. HEART: Normal. PULMONARY VASCULATURE: Normal. LUNGS: There are bilateral basilar interstitial infiltrates present. PLEURAL SPACE: No pleural effusion or pneumothorax. BONE:Within normal limits for the patient's age. OTHER FINDINGS:Normal. IMPRESSION: Bilateral predominantly basilar interstitial infiltrates are present. Differential considerations include interstitial edema or pneumonia. Please correlate clinically. Quality:SDOH Health Related Social Needs: No Data to Display PFSH All Active Problems (Updated 10/06/24 @ 20:26 by Anish Donis NP) Postoperative abdominal pain (Acute) Pneumonia (Acute) Oral thrush (Acute) Fall (on)(from) incline, initial encounter (Acute) Weakness acquired in ICU (Acute) Leukocytosis (leucocytosis) (Acute) Open abdominal wall wound (Acute) Fall (Acute) History of anticoagulant use (Acute) COPD (chronic obstructive pulmonary disease) (Chronic) History of PR (myocardial infarction) (Acute) History of stroke (Acute) Perforation of sigmoid colon due to diverticulitis (Acute) Diverticulitis of colon with perforation (Acute) Tubular adenoma of colon (Acute) Unstable angina (Acute) Presented with 5/10 chest pain. Pain relieved with three nitroglycerins, then placed on a nitroglycerin drip, heaprin, as well as loaded with aspirin and Plavis. Transferred to [facility] [place] for further therapy. CAD (coronary artery disease) (Chronic 10/17/13) S/P PR x 2 in 2002. S/P PCI and stent procedures for total of six stents in the intervening 11 years. MPI at [facility] in 06/15/13, negative for ischemia. Cardiac cath in fall showed no flow-limiting lesions; no further intervention. Chest pain (Acute) newly diagnosed with Afib. Goes in and out of afib Right sided weakness (Acute) Atrial fibrillation (Chronic) Medical History Hypotension Kidney malignancy Pulmonary nodules Stroke Abscess of abdominal cavity Laceration of finger of left hand Trigger thumb, left thumb Headache Diverticulitis Trigger finger, right middle finger Trigger finger, right index finger Erectile disorder, acquired, generalized, severe Acute epididymo-orchitis Muscle wasting and atrophy, not elsewhere classified, other site Olecranon bursitis of right elbow Superficial foreign body of right elbow Right elbow pain Recurrent bilateral inguinal hernia Penile pain Inguinal hernia Spermatocele Lipoma of back Duodenal ulcer Diverticulosis Occipital headache Tubular adenoma of colon (08/03/17) Renal cell carcinoma of left kidney (10/01/16) Ischemic stroke 2017 Hx of adenomatous polyp of colon Esophagitis Tobacco use Back pain, chronic Dysesthesia History of kidney cancer Gastritis Dyspepsia Anemia Dyslipidemia Hemiplegia Sleep apnea Depression with anxiety Dizziness Surgical History Hx of exploratory laparotomy (~08/2024) sigmoid resection, diverting colostomy Trigger finger, right ring finger S/P Release: 01/05/2022 Trigger finger, left middle finger S/P Release: 01/05/2022 History of back surgery partial fusion Hx of carpal tunnel repair R side Bilateral carpal tunnel syndrome S/P B/L ECTR: 11/25/2020 Hx of tonsillectomy History of hernia repair Olecranon bone spur s/p debridement on 07/27/2019. R elbow Hx of appendectomy History of loop recorder placed a couple months ago per pt 2019 under left chest. History of radiofrequency ablation procedure for cardiac arrhythmia cardiac cath 2014, 9 stents over the years since 2002. Jul or Aug was last stent put in per pt. Partial Nephrectomy left side for renal cell cancer. Has yearly CT scan. 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 EGD - MAC (08/03/17) Colonoscopy - MAC (08/03/17) 10/2021 - repeat in 5 years. Social History Smoking/Tobacco Use Status: Current every day Tobacco Type: cigarettes Smoking packs per day: 1 Smoking cigarettes per day: 20.0 Years smoked: 46 Smoking pack-years: 46.00 Tobacco: How many years used: 47 Smoking risk assessment performed?: Yes Alcohol Intake: current Alcohol Intake frequency: a few times a month Alcohol type: beer Drug use: Never Substance use type: does not use Household members: spouse and children Housing: house Number of Children: 1 Pets and animals: Yes Pets and animals: cat(s) and dog(s) Current gender identity: male What is your relationship status?: Panel score (0-1 are the most socially isolated patients): 1 What type of physical activity do you participate in: none Seatbelt use: sometimes Do you feel safe at home: Yes Do you feel safe in your relationship?: Yes
[2024-10-06 18:16] LABS: Lactate 1.7 mmol/L (0.6-1.4)
[2024-10-06 18:19] LABS: Absolute Basophil Count 0.07 10^3/uL (0.0-0.2); Absolute Eosinophil Count 0.49 10^3/uL (0.0-0.7); Absolute Lymphocyte Count 2.15 10^3/uL (1.2-3.4); Absolute Monocyte Count 0.91 10^3/uL (0.1-0.8); Absolute Neutrophil Count 6.57 10^3/uL (1.2-6.7); Basophils % 0.7 %; Eosinophils % 4.8 %; HCT 29.4 % (40.0-50.0); HGB 9.4 g/dL (13.5-17.5); Lymphocytes % 20.9 %; MCH 29.9 pg (27.0-33.0); MCV 94 fL (80-95); MPV 8.9 fL (8.0-11.0); Monocytes % 8.8 %; Neutrophils % 63.8 %; Platelet Count 481 10^3/uL (130-400); RBC 3.14 10^6/uL (4.36-5.78); RDW 16.9 % (11.8-14.1); RDW-SD 56.2 fL; WBC 10.29 10^3/uL (4.4-10.8)
[2024-10-06 18:33] LABS: Bilirubin Negative (Negative); Blood Negative (Negative); Clarity Clear (Clear); Glucose Negative (Negative); Ketones Negative (Negative); Leukocyte Esterase Negative (Negative); Nitrite Negative (Negative); Specific Gravity 1.015 (1.005-1.025); Urobilinogen 0.2 mg/dL (Up to 0.2)
[2024-10-06 18:35] LABS: ALT 40 U/L (16-63); AST 24 U/L (15-37); Albumin 2.1 g/dL (3.4-5.0); Alkaline Phosphatase 161 U/L (46-116); Anion Gap 7.2 mmol/L (3-11); BUN 12 mg/dL (7-18); Bilirubin, Total 0.33 mg/dL (0.2-1.0); CO2 25.8 mmol/L (21.0-32.0); Calcium 8.4 mg/dL (8.5-10.1); Chloride 104 mmol/L (98-107); Estimated GFR 86.16 (mL/min/1.73m2); Glucose 106 mg/dL (74-106); Magnesium 1.7 mg/dL (1.8-2.4); Potassium 3.8 mmol/L (3.5-5.1); Sodium 137 mmol/L (136-145)
[2024-10-06 18:44] LABS: Lipase 171 U/L (<78)
[2024-10-06 18:57] LABS: COVID-19 PCR Negative (Negative); Influenza A PCR Negative (Negative); Influenza B PCR Negative (Negative); RSV PCR Negative (Negative)
[2024-10-06 18:58] LABS: Source Nasopharynx
[2024-10-06] MEDS: Omnipaque 350 MG/ML 100 ML BTL IJ (19:02)
[2024-10-06] MEDS: Normal Saline - Diluent 50 ML VIAL IJ (19:03)
--- NOTE | 2024-10-06 19:14 | DI.CT_ITS ---
Exam(s) CT ABDOMEN PELVIS W EXAM: CT ABDOMEN PELVIS W CLINICAL HISTORY: Postsurgical abdominal pain TECHNIQUE: Imaging Protocol: Axial computed tomography images with coronal and sagittal reformatted images were created and reviewed. CONTRAST MATERIAL: Intravenous: Omnipaque 350 Contrast volume:100 mL Oral: No COMPARISON: CT CT ABDOMEN PELVIS W from 09/11/2024 FINDINGS: ABDOMEN: Lung Bases: There is a tiny left pleural effusion and dependent atelectatic changes in the lung bases bilaterally. Liver: Normal density. There are few tiny hypodensities in the liver which are too small for further characterization but likely reflect small cysts. No suspicious hepatic masses are seen. Portal, Superior Mesenteric, and Splenic Veins: Unremarkable. Gallbladder and Biliary Tract: There is hyperdense material seen within the gallbladder likely reflec ting vicarious excretion of contrast material no stones or biliary ductal dilatation is seen. Pancreas: Normal density, no abnormal calcifications or inflammatory process. Spleen: Normal. Adrenals: No masses seen. Kidneys: There again seen postsurgical changes in the left kidney. Calcifications are seen in the le ft renal pelvis. There is no ureterolithiasis or hydronephrosis. No masses seen. Abdominal Aorta: Abdominal portion non-dilated. Atherosclerotic calcification is present. Bowel: There is diverticulosis of the colon. The patient has had a resection of the sigmoid colon. There is a left lower quadrant colostomy. There are no findings to suggest acute diverticulitis. Th ere is no evidence of bowel obstruction or bowel wall thickening. There is no evidence of appendicit is. Peritoneal Cavity: No ascites, collection or mesenteric inflammatory response. No free air. Lymph Nodes: Within normal limits. Bones: Within normal limits for the patient's age. Soft Tissues: There is a midline surgical defect present. There is a left lower quadrant colostomy. PELVIS: Bladder: Symmetric distention, no gross wall thickening. Reproductive Organs: Unremarkable as visualized. Lymph Nodes: Within normal limits. Bones: Within normal limits for the patient's age. IMPRESSION: 1. Interval partial sigmoid colon resection with a left lower quadrant colostomy. 2. Diverticulosis of the colon without evidence of acute diverticulitis. 3. No evidence of bowel obstruction. 4. Small left pleural effusion and bilateral basilar infiltrates which may represent atelectasis. Pn eumonia cannot be excluded. Please correlate clinically. 5. Midline anterior abdominal wall surgical defect. No focal fluid collection is seen in the anterio r abdominal wall to suggest an abscess. RADIATION DOSE DELIVERED: 584.27mGy.cm Total DLP DATA REPOSITORY: All CT scans at this facility are submitted to the National Radiology Data Registry (NRDR) Dose Index Registry (DIR) with the [employer] ([employer]). RADIATION OPTIMIZATION: All CT scans at this facility use at least one of these dose optimization te chniques: automated exposure control; mA and/or kV adjustment per patient size (includes targeted exa ms where dose is matched to clinical indication); or iterative reconstruction.
[2024-10-06 19:16] LABS: Procalcitonin < 0.10 ng/mL
--- NOTE | 2024-10-06 19:20 | DI.RAD_ITS ---
Exam(s) XR CHEST 2V PA LATERAL EXAM: XR CHEST 2V PA LATERAL CLINICAL HISTORY: cough TECHNIQUE: 2D digital imaging was performed of the chest. Two images were obtained. PA and lateral views were obtained. COMPARISON: CR XR CHEST 2V PA LATERAL from 11/04/2023 FINDINGS: MEDIASTINUM: Normal. HEART: Normal. PULMONARY VASCULATURE: Normal. LUNGS: There are bilateral basilar interstitial infiltrates present. PLEURAL SPACE: No pleural effusion or pneumothorax. BONE:Within normal limits for the patient's age. OTHER FINDINGS:Normal. IMPRESSION: Bilateral predominantly basilar interstitial infiltrates are present. Differential considerations in clude interstitial edema or pneumonia. Please correlate clinically. DATA REPOSITORY: RADIATION DOSE DELIVERED:
[2024-10-06] MEDS: Calcium Carbonate *TUMS* 500 MG CHEW 1000 MG PO (20:35)
[2024-10-06] MEDS: Magnesium Oxide 400 MG TAB PO (20:36)
[2024-10-06] MEDS: Doxycycline Hyclate 100 MG CAP PO (20:36)
== END 2024-10-06 20:42 | disposition home or self-care (01) ==
PROVIDERS: Emergency Provider Nurse Practitioner Family; PCP Family Medicine
DX: R10.30 Lower abdominal pain, unspecified (principal); J18.9 Pneumonia, unspecified organism; G89.18 Other acute postprocedural pain; I48.91 Unspecified atrial fibrillation; I25.10 Atherosclerotic heart disease of native coronary artery without angina pectoris; I25.2 Old myocardial infarction; J44.9 Chronic obstructive pulmonary disease, unspecified; Z86.73 Personal history of transient ischemic attack (TIA), and cerebral infarction without residual deficits; Z95.5 Presence of coronary angioplasty implant and graft; Z79.899 Other long term (current) drug therapy; Z93.3 Colostomy status; Z85.528 Personal history of other malignant neoplasm of kidney
CPT/HCPCS: 80053; 83690; 84145; 87040; 87637; 99285; 71046; 74177; 81003; 83605; 83735; 85025; 99284; J3490

== ENCOUNTER 2024-10-09 02:04 | Outpatient (CLI) | payer MEDICARE, SELFPAY ==
--- NOTE | 2024-10-09 06:30 | DI.CT_ITS ---
Exam(s) CT HEAD WO EXAM: CT HEAD WO CLINICAL HISTORY: Fall at home on blood thinners,[id number]. TECHNIQUE: Imaging Protocol: Axial computed tomography images with coronal and sagittal reformatted images were created and reviewed COMPARISON: No exams were available for comparison FINDINGS: Ventricles and Extra axial spaces: Normal in size and morphology for the patient's age. Hemorrhage: None. Cerebral parenchyma: No evidence of acute infarct or mass. Midline shift: None. Brainstem/Cerebellum: Normal. Calvarium: Normal. Visualized Paranasal sinuses:Fluid and mucous within the maxillary sinuses. Mastoids: Clear. Soft Tissues: Unremarkable. ORBITS: Unremarkable. PITUITARY: Not enlarged. IMPRESSION: No acute intracranial process. RADIATION DOSE DELIVERED: 851.62mGy.cm Total DLP DATA REPOSITORY: All CT scans at this facility are submitted to the National Radiology Data Registry (NRDR) Dose Index Registry (DIR) with the [employer] (ACR). RADIATION OPTIMIZATION: All CT scans at this facility use at least one of these dose optimization te chniques: automated exposure control; mA and/or kV adjustment per patient size (includes targeted exa ms where dose is matched to clinical indication); or iterative reconstruction.
== END 2024-10-09 02:24 ==
PROVIDERS: PCP Family Medicine; Visit Provider Surgery
DX: W10.2XXA Fall (on)(from) incline, initial encounter (principal); Z79.899 Other long term (current) drug therapy
CPT/HCPCS: 70450

== ENCOUNTER → 2024-10-11 10:06 | Outpatient (BNVA) | payer MEDICARE, SELFPAY | PROVIDERS: PCP Family Medicine; Visit Provider Surgery | DX: Z48.815 Encounter for surgical aftercare following surgery on the digestive system (principal); Z93.3 Colostomy status ==

== ENCOUNTER 2024-10-29 15:43 | Outpatient (CLI) | payer MEDICARE, SELFPAY ==
[2024-10-29 15:30] LABS: HCT 38.1 % (40.0-50.0); HGB 12.1 g/dL (13.5-17.5); MCH 30.1 pg (27.0-33.0); MCHC 31.8 % (32.0-36.0); MCV 95 fL (80-95); MPV 8.4 fL (8.0-11.0); Platelet Count 315 10^3/uL (130-400); RBC 4.02 10^6/uL (4.36-5.78); RDW 15.8 % (11.8-14.1); RDW-SD 55.5 fL; WBC 12.38 10^3/uL (4.4-10.8)
== END 2024-10-29 15:44 | disposition home or self-care (01) ==
LOC: LBO 15:48
PROVIDERS: PCP Family Medicine; Visit Provider Family Medicine
DX: D64.9 Anemia, unspecified (principal)
CPT/HCPCS: 36415; 85027

== ENCOUNTER → 2024-11-27 10:41 | Outpatient (BNVA) | payer MEDICARE, SELFPAY | PROVIDERS: PCP Family Medicine; Referring Provider Family Medicine; Visit Provider Surgery | DX: Z48.815 Encounter for surgical aftercare following surgery on the digestive system (principal); K57.20 Diverticulitis of large intestine with perforation and abscess without bleeding; K65.1 Peritoneal abscess ==

== ENCOUNTER 2025-01-18 08:01 | Emergency (ER) | payer MEDICARE, SELFPAY ==
[2025-01-18 08:03] VITALS: BP 132/82; PULSE 63; RESP 14; TEMP 34.9; O2SAT 97
--- NOTE | 2025-01-18 08:15 | DI.CT_ITS ---
Exam(s) CT ABDOMEN PELVIS W EXAM: CT ABDOMEN PELVIS W CLINICAL HISTORY: Stoma pain, LLQ. TECHNIQUE: Imaging Protocol: Axial computed tomography images with coronal and sagittal reformatted images were created and reviewed CONTRAST MATERIAL: Intravenous: Omnipaque-350 100cc Oral: None COMPARISON: No exams were available for comparison FINDINGS: VISUALIZED LUNG BASES: Mild increased markings. No confluent infiltrates. Tiny 9 granuloma noted in left lung base. No pleural effusions.. ABDOMEN: GI: Again noted is a left-sided colostomy. The open anterior midline abdominal wound has now closed and there is no abnormal fluid collection at this level. The appearance of the left colostomy is unc hanged from 10/06/2024. No obvious hernia at this level. There are diverticuli in left side of the colon and there is at least 1 diverticulum at the colostomy site but this does not appear inflamed. No mass nor abnormal fluid collection at this level. Two surgical mana or suture material are aga in seen at the colostomy site. There is a moderate amount of fecal material in the colon proximal to the colostomy site. No evidence of diverticulitis. No small bowel obstruction. There is no eviden ce of inflammatory process at the level of the oversewn sigmoid LIVER: There are no focal hepatic lesions evident. No dilated intrahepatic ducts. GALLBLADDER/BILIARY: No obvious gallbladder pathology. CBD is not dilated. PANCREAS: No evidence of pancreatic mass nor dilatation of the pancreatic duct. SPLEEN: Spleen is not enlarged. No obvious intrasplenic lesions. Splenic and portal veins are paten t. ADRENALS: There are no significant adrenal masses. KIDNEYS:Right kidney unremarkable. Postsurgical changes in the lateral cortex left kidney again note d. No new masses. Calcifications around the left renal pelvis again noted. No hydronephrosis. No hydroureter. The urinary bladder wall is uniformly thickened probably cystitis versus under distensi on or combination of both. ABDOMINAL AORTA: Calcified-atherosclerotic. Mild aneurysmal dilatation to 2.5 cm unchanged from prev ious. There is no aneurysmal dilatation of the iliac arteries. LYMPH NODES:There is no retroperitoneal nor paraaortic adenopathy. ABDOMINAL WALL: As above. GI: There is no evidence of bowel obstruction, free air, nor abscess. PELVIS: GI: No evidence of appendicitis.No evidence of sigmoid diverticulitis. LYMPH NODES: There is no intrapelvic nor inguinal adenopathy. REPRODUCTIVE: Prostate size upper normal. Calcification noted in the central left prostate. Seminal vesicles unremarkable. URINARY BLADDER: Diffusely wall thickening. OSSEOUS: Evidence of previous right lumbar laminectomies again noted. Left 11th rib deformity again noted from prior fracture or surgery Multilevel chronic degenerative disc disease and facet arthropathy. No listhesis. IMPRESSION: 1. Left-sided colostomy appears unchanged from 10/06/2024. No abnormal new streaking nor collection at this level nor elsewhere in the abdomen and pelvis. Also no evidence of bowel obstruction nor glenis e air. 2. Other findings as above. Report called by myself to ER provider 01/18/2025 at 10:12 a.m. RADIATION DOSE DELIVERED: 594.83mGy.cm Total DLP DATA REPOSITORY: All CT scans at this facility are submitted to the National Radiology Data Registry (NRDR) Dose Index Registry (DIR) with the [employer] (ACR). RADIATION OPTIMIZATION: All CT scans at this facility use at least one of these dose optimization te chniques: automated exposure control; mA and/or kV adjustment per patient size (includes targeted exa ms where dose is matched to clinical indication); or iterative reconstruction.
--- NOTE | 2025-01-18 08:24 | ED.GENADUL_ITS ---
Discharge Plan Disposition Patient Disposition: Home Condition: Stable Discharge Details Clinical Impression: Abdominal pain Primary Care Provider: Aleksey Desouza ED Provider: Kitty Couch Home Meds and New Rx's Prescriptions: Continued Xarelto 20 mg tablet 20 mg PO DAILY Rx Instructions: must administer with evening meal ranolazine [Ranexa] 500 mg tablet extended release 12 hr 500 mg PO BID lansoprazole [Prevacid SoluTab] 30 mg tablet,disintegrat, delay rel 30 mg PO BID isosorbide mononitrate 120 mg tablet extended release 24 hr 120 mg PO DAILY clopidogrel [Plavix] 75 mg tablet 75 mg PO DAILY Patient Comments: 07/26/19 per pt I think my last dose was Monday 07/23 but it could have been Tuesday I don't remember. sertraline 50 mg tablet 50 mg PO DAILY carvedilol 3.125 mg tablet 6.25 mg PO BID nitroglycerin [Nitrostat] 0.4 mg Tablet, Sublingual 0.4 mg sublingual Q5 MIN PRN X3 PRN (Reason: chest pain) Qty: 0 0RF hydrocodone-acetaminophen 5-325 mg tablet 1 tab PO TID Patient Comments: TAKE 1 TABLET BY MOUTH THREE TIMES DAILY NEEDED FOR PAIN Rosuvastatin Calcium 40 MG tablet 40 mg PO DAILY amlodipine 10 mg tablet 10 mg PO DAILY bupropion HCl 150 mg tablet extended release 24 hr 300 mg PO DAILY Discharge Instructions Instructions: Abdominal Pain, Adult ED Additional Instructions: CT shows no evidence of diverticulitis, no bowel obstruction or any abnormality. Labs show no evidence for infection. Follow up with primary care provider in 3-5 days. Return to ED sooner if any worsening pain vomiting constipation or concerns. Please take Tylenol or Ibuprofen with food every 4-6 hours as needed for pain and swelling. Referrals: Aleksey Desouza MD [Primary Care Provider] - 5 days HPI General Mode of arrival: ambulatory . Date/Time Provider Initiated Documentation: 01/18/25 08:15 . Limitations to Documentation: no limitations . Information obtained by: patient, RN notes reviewed and old records reviewed . HPI Narrative: 59-year-old male with a past medical history of diverticulitis with perforated bowel with a colostomy to his left lower quadrant presents to the ER with chief complaint of localized left lower quadrant abdominal pain around the stoma which began approximately an hour prior to arrival. The stoma is draining brown stool normally. He denies any nausea vomiting diarrhea or problems urinating. Does have a history of hypertension kidney malignancy, stroke gastritis dyslipidemia depression anxiety. Surgical history includes partial nephrectomy, cardiac ablation, appendectomy Related Data Home Medications ?Medication ?Instructions ?Recorded ?Confirmed Rosuvastatin Calcium 40 mg PO DAILY 05/09/18 01/18/25 carvedilol 3.125 mg tablet 6.25 mg PO BID 06/14/19 01/18/25 amlodipine 10 mg tablet 10 mg PO DAILY 06/29/19 01/18/25 nitroglycerin 0.4 mg sublingual 0.4 mg sublingual Q5 MIN PRN X3 11/02/19 01/18/25 tablet (Nitrostat) PRN chest pain #0 tabs ranolazine 500 mg tablet,extended 500 mg PO BID 09/08/20 01/18/25 release,12 hr (Ranexa) rivaroxaban 20 mg tablet (Xarelto) 20 mg PO DAILY 09/08/20 01/18/25 bupropion HCl 150 mg 24 hr tablet, 300 mg PO DAILY 11/10/20 01/18/25 extended release clopidogrel 75 mg tablet (Plavix) 75 mg PO DAILY 09/29/21 01/18/25 isosorbide mononitrate 120 mg 120 mg PO DAILY 09/29/21 01/18/25 tablet,extended release 24 hr lansoprazole 30 mg delayed 30 mg PO BID 09/29/21 01/18/25 release,disintegrating tablet (Prevacid SoluTab) sertraline 50 mg tablet 50 mg PO DAILY 09/29/21 01/18/25 hydrocodone 5 mg-acetaminophen 325 1 tab PO TID 02/17/22 01/18/25 mg tablet Previous Rx's ?Medication ?Instructions ?Recorded nitroglycerin 0.4 mg sublingual 0.4 mg sublingual Q5 MIN PRN X3 11/02/19 tablet (Nitrostat) PRN chest pain #0 tabs Allergies Allergy/AdvReac Type Severity Reaction Status Date / Time oxycodone Allergy Mild unknown Verified 01/18/25 08:10 atorvastatin calcium (From AdvReac Intermediate liver Verified 01/18/25 08:10 Lipitor) problems niacin AdvReac Mild flushing Verified 01/18/25 08:10 adhesive from monitor tabs Allergy Intermediate jones Uncoded 01/18/25 08:10 General Stated Complaint: Abd Prob MARQUIS: 3 Review of Systems All systems reviewed & are unremarkable except as noted in HPI and below Gastrointestinal Gastrointestinal: Reports as per HPI and Reports abdominal pain Exam Narrative Exam Narrative: Constitutional: Alert and oriented x3. Appears stated age. Normal body habitus. Head: Normocephalic, no trauma. Eyes: Pupils PERRL, Red reflex noted, EOM's intact. Eyelids symmetrical without lesions, discharge, or swelling. Chest: RRR, Normal S1, S2, distal pulses intact. Resp: Lungs clear to auscultation bilaterally, no wheezes, rales, or rhonchi. Abdomen: Soft, non-distended, tenderness around the stoma, no significant erythema or swelling noted. Soft brown stool noted in the colostomy bag. Musculoskeletal: Normal gait, Moves all 4 extremities without difficulty. Skin: No suspicious rashes or lesions. Capillary refill less than 2 sec. Neurologic: Cranial nerves II-XII intact. Alert and oriented x 3. Motor: No deficits noted. Sensory: Intact bilaterally all 4 extremities. Hematologic/Lymphatic: No ecchymosis, no lymphadenopathy. Course Vital Signs Vital signs: Vital Signs Temperature 34.9 C L 01/18/25 08:03 Pulse 63 01/18/25 08:03 Respiratory Rate 14 01/18/25 08:03 Blood Pressure 132/82 01/18/25 08:03 Pulse Oximetry 97 01/18/25 08:03 Temperature 34.9 C L 01/18/25 08:03 Temperature Source Tympanic 01/18/25 08:03 Pulse 63 01/18/25 08:03 Respiratory Rate 14 01/18/25 08:03 Blood Pressure 132/82 01/18/25 08:03 Blood Pressure Position Sitting 01/18/25 08:03 Pulse Oximetry 97 01/18/25 08:03 Oxygen Delivery Method Room Air 01/18/25 08:03 Oxygen Flow Rate 0 01/18/25 08:03 Pain Level 2 01/18/25 08:03 Medical Decision Making 59-year-old male with a past medical history of diverticulitis with perforated bowel with a colostomy to his left lower quadrant presents to the ER with chief complaint of localized left lower quadrant abdominal pain around the stoma which began approximately an hour prior to arrival. The stoma is draining brown stool normally. He denies any nausea vomiting diarrhea or problems urinating. Does have a history of hypertension kidney malignancy, stroke gastritis dyslipidemia depression anxiety. Surgical history includes partial nephrectomy, cardiac ablation, appendectomy Workup ordered including CBC CMP lipase cyst CT abdomen pelvis with contrast. Differential diagnosis includes not to diverticulitis, bowel obstruction, gastroenteritis CT shows no evidence of diverticulitis or bowel obstruction discharge patient home encouraged to return if any worsening pain. This text was generated using The [employer] system, please disregard any oddities of phrase or misspellings. Lab Data Lab results reviewed: Yes I reviewed the patient's lab results. Labs: Laboratory Tests Range/Units 01/18/25 01/18/25 08:34 08:42 WBC (4.4-10.8) 10^3/uL 8.33 RBC (4.36-5.78) 10^6/uL 4.10 L Hgb (13.5-17.5) g/dL 12.4 L Hct (40.0-50.0) % 37.7 L MCV (80-95) fL 92 MCH (27.0-33.0) pg 30.2 MCHC (32.0-36.0) % 32.9 RDW (11.8-14.1) % 13.8 Plt Count (130-400) 10^3/uL 276 MPV (8.0-11.0) fL 9.2 Immature Gran % % 0.2 Neutrophils % % 64.3 Lymphocytes % % 25.5 Monocytes % % 8.0 Eosinophils % % 1.3 Basophils % % 0.7 Nucleated RBC % (0.0-0.3) % 0.0 Absolute Neutrophils (1.2-6.7) 10^3/uL 5.35 Absolute Lymphocytes (1.2-3.4) 10^3/uL 2.12 Absolute Monocytes (0.1-0.8) 10^3/uL 0.67 Absolute Eosinophils (0.0-0.7) 10^3/uL 0.11 Absolute Basophils (0.0-0.2) 10^3/uL 0.06 Sodium (136-145) mmol/L 139 Potassium (3.5-5.1) mmol/L 4.0 Chloride (98-107) mmol/L 105 Carbon Dioxide (21.0-32.0) mmol/L 27.0 Anion Gap (3-11) mmol/L 7.0 BUN (7-18) mg/dL 16 Creatinine (0.70-1.30) mg/dL 1.0 Est GFR (CKD-EPI 2020) (mL/min/1.73m2) 86.16 Glucose (74-106) mg/dL 119 H Calcium (8.5-10.1) mg/dL 9.0 Magnesium (1.8-2.4) mg/dL 1.8 Total Bilirubin (0.2-1.0) mg/dL 0.1 L AST (15-37) U/L 15 ALT (16-63) U/L 15 L Alkaline Phosphatase (46-116) U/L 88 Total Protein (6.4-8.2) g/dL 6.7 Albumin (3.4-5.0) g/dL 3.1 L Lipase (<78) U/L 32 Urine Color (Yellow) Yellow Urine Clarity (Clear) Clear Urine pH (5-8) 5.5 Ur Specific [place] (1.005-1.025) 1.025 Urine Protein (Neg-Trace) mg/dL Negative Urine Ketones (Negative) mg/dL Negative Urine Blood (Negative) Negative Urine Nitrite (Negative) Negative Urine Bilirubin (Negative) Negative Urine Urobilinogen (Up to 0.2) mg/dL 0.2 Ur Leukocyte Esterase (Negative) Negative Urine Glucose (Negative) mg/dL Negative Quality:SDOH Health Related Social Needs: No Data to Display PFSH All Active Problems (Updated 01/18/25 @ 10:21 by Kitty Couch NP) Abdominal pain (Acute) Colostomy in place (Chronic) Open wound anterior abdominal wall (Acute) Oral thrush (Acute) Fall (on)(from) incline, initial encounter (Acute) Weakness acquired in ICU (Acute) Leukocytosis (leucocytosis) (Acute) Open abdominal wall wound (Acute) Fall (Acute) History of anticoagulant use (Acute) COPD (chronic obstructive pulmonary disease) (Chronic) History of SD (myocardial infarction) (Acute) History of stroke (Acute) Perforation of sigmoid colon due to diverticulitis (Acute) Diverticulitis of colon with perforation (Acute) Tubular adenoma of colon (Acute) Unstable angina (Acute) Presented with 5/10 chest pain. Pain relieved with three nitroglycerins, then placed on a nitroglycerin drip, heaprin, as well as loaded with aspirin and Plavis. Transferred to [facility] [place] further therapy. CAD (coronary artery disease) (Chronic 10/17/13) S/P SD x 2 in 2002. S/P PCI and stent procedures for total of six stents in the intervening 11 years. MPI at [facility] in 06/15/13, negative for ischemia. Cardiac cath in fall showed no flow-limiting lesions; no further intervention. Chest pain (Acute) newly diagnosed with Afib. Goes in and out of afib Right sided weakness (Acute) Atrial fibrillation (Chronic) Medical History Hypotension Kidney malignancy Pulmonary nodules Stroke Abscess of abdominal cavity Laceration of finger of left hand Trigger thumb, left thumb Headache Diverticulitis Trigger finger, right middle finger Trigger finger, right index finger Erectile disorder, acquired, generalized, severe Acute epididymo-orchitis Muscle wasting and atrophy, not elsewhere classified, other site Olecranon bursitis of right elbow Superficial foreign body of right elbow Right elbow pain Recurrent bilateral inguinal hernia Penile pain Inguinal hernia Spermatocele Lipoma of back Duodenal ulcer Diverticulosis Occipital headache Tubular adenoma of colon (08/03/17) Renal cell carcinoma of left kidney (10/01/16) Ischemic stroke 2017 Hx of adenomatous polyp of colon Esophagitis Tobacco use Back pain, chronic Dysesthesia History of kidney cancer Gastritis Dyspepsia Anemia Dyslipidemia Hemiplegia Sleep apnea Depression with anxiety Dizziness Surgical History Hx of exploratory laparotomy (~08/2024) sigmoid resection, diverting colostomy Trigger finger, right ring finger S/P Release: 01/05/2022 Trigger finger, left middle finger S/P Release: 01/05/2022 History of back surgery partial fusion Hx of carpal tunnel repair R side Bilateral carpal tunnel syndrome S/P B/L ECTR: 11/25/2020 Hx of tonsillectomy History of hernia repair Olecranon bone spur s/p debridement on 07/27/2019. R elbow Hx of appendectomy History of loop recorder placed a couple months ago per pt 2019 under left chest. History of radiofrequency ablation procedure for cardiac arrhythmia cardiac cath 2013, 9 stents over the years since 2002. Nov or Aug was last stent put in per pt. Partial Nephrectomy left side for renal cell cancer. Has yearly CT scan. 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 EGD - MAC (08/03/17) Colonoscopy - MAC (08/03/17) 10/2021 - repeat in 5 years. Social History Smoking/Tobacco Use Status: Current every day Tobacco Type: cigarettes Smoking packs per day: 1 Smoking cigarettes per day: 20.0 Years smoked: 47 Smoking pack- years: 47.00 Tobacco: How many years used: 47 Smoking risk assessment performed?: Yes Alcohol Intake: current Alcohol Intake frequency: a few times a month Alcohol type: beer Drug use: Never Substance use type: does not use Household members: spouse and children Housing: house Number of Children: 1 Pets and animals: Yes Pets and animals: cat(s) and dog(s) Current gender identity: male What is your relationship status?: Panel score (0-1 are the most socially isolated patients): 1 What type of physical activity do you participate in: none Seatbelt use: sometimes Do you feel safe at home: Yes Do you feel safe in your relationship?: Yes
[2025-01-18 08:43] LABS: Bilirubin Negative (Negative); Blood Negative (Negative); Clarity Clear (Clear); Glucose Negative (Negative); Ketones Negative (Negative); Leukocyte Esterase Negative (Negative); Nitrite Negative (Negative); Specific Gravity 1.025 (1.005-1.025); Urobilinogen 0.2 mg/dL (Up to 0.2); pH 5.5 (5-8)
[2025-01-18 08:48] LABS: Abs Immature Grans 0.02 10^3/uL (0.0-0.06); Absolute Basophil Count 0.06 10^3/uL (0.0-0.2); Absolute Eosinophil Count 0.11 10^3/uL (0.0-0.7); Absolute Lymphocyte Count 2.12 10^3/uL (1.2-3.4); Absolute Monocyte Count 0.67 10^3/uL (0.1-0.8); Absolute Neutrophil Count 5.35 10^3/uL (1.2-6.7); Basophils % 0.7 %; Eosinophils % 1.3 %; HCT 37.7 % (40.0-50.0); HGB 12.4 g/dL (13.5-17.5); Immature Grans % 0.2 %; Lymphocytes % 25.5 %; MCH 30.2 pg (27.0-33.0); MCHC 32.9 % (32.0-36.0); MCV 92 fL (80-95); MPV 9.2 fL (8.0-11.0); Neutrophils % 64.3 %; Platelet Count 276 10^3/uL (130-400); RDW 13.8 % (11.8-14.1); RDW-SD 46.3 fL; WBC 8.33 10^3/uL (4.4-10.8)
[2025-01-18 09:11] LABS: ALT 15 U/L (16-63); AST 15 U/L (15-37); Albumin 3.1 g/dL (3.4-5.0); Alkaline Phosphatase 88 U/L (46-116); BUN 16 mg/dL (7-18); Bilirubin, Total 0.1 mg/dL (0.2-1.0); Chloride 105 mmol/L (98-107); Estimated GFR 86.16 (mL/min/1.73m2); Glucose 119 mg/dL (74-106); Lipase 32 U/L (<78); Magnesium 1.8 mg/dL (1.8-2.4); Sodium 139 mmol/L (136-145); Total Protein 6.7 g/dL (6.4-8.2)
[2025-01-18] MEDS: Omnipaque 350 MG/ML 500 ML BTL-Imaging package IJ (09:33)
[2025-01-18] MEDS: Normal Saline - Diluent 50 ML VIAL IV (09:35)
[2025-01-18 10:40] VITALS: BP 132/82; PULSE 63; RESP 14; TEMP 34.9; O2SAT 97
== END 2025-01-18 10:42 | disposition home or self-care (01) ==
PROVIDERS: Emergency Provider Registered Nurse Emergency; PCP Family Medicine
DX: R10.32 Left lower quadrant pain (principal); I10 Essential (primary) hypertension; I25.10 Atherosclerotic heart disease of native coronary artery without angina pectoris; I25.2 Old myocardial infarction; J44.9 Chronic obstructive pulmonary disease, unspecified; I48.91 Unspecified atrial fibrillation; E78.5 Hyperlipidemia, unspecified; F17.210 Nicotine dependence, cigarettes, uncomplicated; Z79.01 Long term (current) use of anticoagulants; Z79.02 Long term (current) use of antithrombotics/antiplatelets; Z90.5 Acquired absence of kidney; Z95.5 Presence of coronary angioplasty implant and graft; Z93.3 Colostomy status; Z85.528 Personal history of other malignant neoplasm of kidney
CPT/HCPCS: 36415; 80053; 83690; 99285; 74177; 81003; 83735; 85025; 99284

== ENCOUNTER 2025-05-21 08:28 | Emergency (ER) | payer MEDICARE, SELFPAY ==
[2025-05-21 08:28] VITALS: BP 136/79; PULSE 60; RESP 16; TEMP 36.4; O2SAT 95
--- NOTE | 2025-05-21 08:30 | RT.EKG_ITS ---
APPROVED REPORT Exam: Resting ECG Reason for Exam: weakness Patient Location: E HR:64 bpm ECG Measurements Heart Rate 64 AXIS WA 159 P 53 QRSd 91 QRS 35 QT 424 T 66 QTc 424 Conclusion Sinus rhythm...normal P axis, V-rate 60- 99 Atrial premature complexes...SV complexes w/ short R-R intvls No STEMI
--- NOTE | 2025-05-21 08:30 | DI.CT_ITS ---
Exam(s) CT ABDOMEN PELVIS W EXAM: CT ABDOMEN PELVIS W CLINICAL HISTORY: abd pain,colostomy, stool from rectum today TECHNIQUE: Imaging Protocol: Axial computed tomography images with coronal and sagittal reformatted images were created and reviewed. CONTRAST MATERIAL: Intravenous: Omnipaque 350 Contrast volume:100 mL Oral: No COMPARISON: CT CHEST ABD PELVIS WITH CONTRAST from 10/01/2016 CT CTA THORAX from 01/13/[address] ABDOMEN PELVIS W from 10/06/[address] ABDOMEN PELVIS W from 01/18/2025 FINDINGS: ABDOMEN: Lung Bases: There is a calcified granuloma in the left lower lobe. There are dependent atelectatic changes in the lung bases. There is a stable right middle lobe pulmonary nodule. Liver: Normal density. There are stable tiny hypodensities in the liver. They are too small for further characterization but likely reflect small cysts. No suspicious hepatic masses are seen. Portal, Superior Mesenteric, and Splenic Veins: Unremarkable. Gallbladder and Biliary Tract: No radiodense calculus or dilation. Pancreas: Normal density, no abnormal calcifications or inflammatory process. Spleen: Normal. Adrenals: No masses seen. Kidneys: Normal size, contour and axis. No radiodense stones or obstructive uropathy. No masses seen. Abdominal Aorta: Abdominal portion non-dilated. Atherosclerotic calcification is present. Bowel: There is a left lower quadrant colostomy. There is diverticulosis seen in the colon without evidence of acute diverticulitis. There is a moderate amount of stool throughout the colon suggesting constipation. There is no bowel wall thickening or obstruction present. There is no pneumatosis. The stomach is incompletely distended limiting evaluation. No gross abnormalities identified. The rectosigmoid stump is grossly unremarkable apart from diverticula in the sigmoid component. The bowel is not distended. There is no evidence of an appendicitis. Peritoneal Cavity: No ascites, collection or mesenteric inflammatory response. No free air. Lymph Nodes: Within normal limits. Bones: Within normal limits for the patient's age. There is a mild left convex lumbar scoliosis. Soft Tissues: There is mild fatty atrophy of the right paraspinous musculature. PELVIS: Bladder: Symmetric distention, no gross wall thickening. Reproductive Organs: Unremarkable as visualized. Lymph Nodes: Within normal limits. Bones: Within normal limits for the patient's age. IMPRESSION: 1. No acute abdominal or pelvic process. 2. Colonic diverticulosis without evidence of acute diverticulitis. RADIATION DOSE DELIVERED: 548.94mGy.cm Total DLP DATA REPOSITORY: All CT scans at this facility are submitted to the National Radiology Data Registry (NRDR) Dose Index Registry (DIR) with the [employer] (ACR). RADIATION OPTIMIZATION: All CT scans at this facility use at least one of these dose optimization techniques: automated exposure control; mA and/or kV adjustment per patient size (includes targeted exams where dose is matched to clinical indication); or iterative reconstruction.
[2025-05-21 08:32] VITALS: BP 136/79; PULSE 60; RESP 16; TEMP 36.4; O2SAT 95
[2025-05-21 09:01] LABS: Abs Immature Grans 0.03 10^3/uL (0.0-0.06); HCT 38.1 % (40.0-50.0); HGB 13.0 g/dL (13.5-17.5); Immature Grans % 0.3 %; MCH 30.6 pg (27.0-33.0); MCHC 34.1 % (32.0-36.0); MCV 90 fL (80-95); MPV 9.2 fL (8.0-11.0); Platelet Count 281 10^3/uL (130-400); RBC 4.25 10^6/uL (4.36-5.78); RDW 14.1 % (11.8-14.1); RDW-SD 46.5 fL; WBC 10.68 10^3/uL (4.4-10.8)
[2025-05-21 09:31] LABS: ALT 17 U/L (16-63); AST 16 U/L (15-37); Albumin 3.5 g/dL (3.4-5.0); Alkaline Phosphatase 78 U/L (46-116); Anion Gap 7.0 mmol/L (3-11); BUN 14 mg/dL (7-18); Bilirubin, Total 0.2 mg/dL (0.2-1.0); CO2 27.0 mmol/L (21.0-32.0); Calcium 8.9 mg/dL (8.5-10.1); Chloride 103 mmol/L (98-107); Estimated GFR 76.85 (mL/min/1.73m2); Glucose 106 mg/dL (74-106); Magnesium 2.0 mg/dL (1.8-2.4); Potassium 4.2 mmol/L (3.5-5.1); Sodium 137 mmol/L (136-145); Total Protein 7.2 g/dL (6.4-8.2); Troponin I 9 ng/L (<or=76)
[2025-05-21] MEDS: Omnipaque 350 MG/ML 100 ML BTL IJ (09:43)
[2025-05-21] MEDS: Normal Saline - Diluent 50 ML VIAL IJ (09:51)
[2025-05-21] MEDS: Normal Saline Flush 10 ML SYR IVP (09:52)
[2025-05-21 11:18] VITALS: BP 132/81; PULSE 52; RESP 18; O2SAT 98
[2025-05-21 11:33] LABS: Glucose Negative (Negative)
[2025-05-21 11:44] LABS: Troponin I 7 ng/L (<or=76)
[2025-05-21] MEDS: ACETAMINOPHEN 500 MG/50 ML BAG 200 MG IVPB (11:51)
[2025-05-21 12:15] VITALS: BP 119/78; PULSE 84; RESP 16; TEMP 36.7; O2SAT 100
--- NOTE | 2025-05-21 15:30 | W.ED.GENAD ---
Discharge Plan Disposition Patient Disposition: Home Discharge Details Clinical Impression: Abdominal pain, Increased stool volume Primary Care Provider: Aleksey Desouza ED Provider: Heaven Nunes Home Meds and New Rx's Prescriptions: Continued Xarelto 20 mg tablet 20 mg PO DAILY Rx Instructions: must administer with evening meal ranolazine [Ranexa] 500 mg tablet extended release 12 hr 500 mg PO BID lansoprazole [Prevacid SoluTab] 30 mg tablet,disintegrat, delay rel 30 mg PO BID isosorbide mononitrate 120 mg tablet extended release 24 hr 120 mg PO DAILY clopidogrel [Plavix] 75 mg tablet 75 mg PO DAILY Patient Comments: 07/26/19 per pt I think my last dose was Monday 07/23 but it could have been Tuesday I don't remember. sertraline 50 mg tablet 50 mg PO DAILY carvedilol 3.125 mg tablet 6.25 mg PO BID nitroglycerin [Nitrostat] 0.4 mg Tablet, Sublingual 0.4 mg sublingual Q5 MIN PRN X3 PRN (Reason: chest pain) Qty: 0 0RF hydrocodone-acetaminophen 5-325 mg tablet 1 tab PO TID Patient Comments: TAKE 1 TABLET BY MOUTH THREE TIMES DAILY NEEDED FOR PAIN Rosuvastatin Calcium 40 MG tablet 40 mg PO DAILY amlodipine 10 mg tablet 10 mg PO DAILY bupropion HCl 150 mg tablet extended release 24 hr 300 mg PO DAILY Discharge Instructions Instructions: Abdominal Pain, Adult ED Additional Instructions: take senna for the next few days start your metameucil daily, I suspect you are constipated and is contributing to your discomfort make sure you are drinking 8.8 oz glasses of water daily Recheck with your doctor tomorrow Return with worsening pain, fever, chills, vomiting, or should any new concerns arise Referrals: Aleksey Desouza MD [Primary Care Provider, Medicine] HPI General Date/Time Provider Initiated Documentation: 05/21/25 08:30. HPI Narrative: This 59-year-old male with history of ostomy with recent Hinojosa's procedure secondary to perforated diverticulitis presents with abdominal pain that started while he was at work back proximately 20 minutes prior to arrival. He states he had normal output from his ostomy but thinks he might of had a bowel movement this morning which she states has not occurred since he had been ostomy placed a year ago. Denies any fever or chills or nausea or vomiting. Denies any urinary complaints. Feels as though he has had normal stool volume from his stoma. Denies any blood Related Data Home Medications ?Medication ?Instructions ?Recorded ?Confirmed Rosuvastatin Calcium 40 mg PO DAILY 05/09/18 05/21/25 carvedilol 3.125 mg tablet 6.25 mg PO BID 06/14/19 05/21/25 amlodipine 10 mg tablet 10 mg PO DAILY 06/29/19 05/21/25 nitroglycerin 0.4 mg sublingual 0.4 mg sublingual Q5 MIN PRN X3 11/02/19 05/21/25 tablet (Nitrostat) PRN chest pain #0 tabs ranolazine 500 mg tablet,extended 500 mg PO BID 09/08/20 05/21/25 release,12 hr (Ranexa) rivaroxaban 20 mg tablet (Xarelto) 20 mg PO DAILY 09/08/20 05/21/25 bupropion HCl 150 mg 24 hr tablet, 300 mg PO DAILY 11/10/20 05/21/25 extended release clopidogrel 75 mg tablet (Plavix) 75 mg PO DAILY 09/29/21 05/21/25 isosorbide mononitrate 120 mg 120 mg PO DAILY 09/29/21 05/21/25 tablet,extended release 24 hr lansoprazole 30 mg delayed 30 mg PO BID 09/29/21 05/21/25 release,disintegrating tablet (Prevacid SoluTab) sertraline 50 mg tablet 50 mg PO DAILY 09/29/21 05/21/25 hydrocodone 5 mg-acetaminophen 325 1 tab PO TID 02/17/22 05/21/25 mg tablet Previous Rx's ?Medication ?Instructions ?Recorded nitroglycerin 0.4 mg sublingual 0.4 mg sublingual Q5 MIN PRN X3 11/02/19 tablet (Nitrostat) PRN chest pain #0 tabs Allergies Allergy/AdvReac Type Severity Reaction Status Date / Time oxycodone Allergy Mild unknown Verified 05/21/25 08:32 atorvastatin calcium (From AdvReac Intermediate liver Verified 05/21/25 08:32 Lipitor) problems niacin AdvReac Mild flushing Verified 01/18/25 08:10 adhesive from monitor tabs Allergy Intermediate jones Uncoded 05/21/25 08:32 General Stated Complaint: Abd Prob MARQUIS: 3 Exam Narrative Exam Narrative: Alert and oriented 59-year-old male in no acute distress abdominal tenderness right lower quadrant no rebound or guarding, brownish-green stool noted in's ostomy lungs clear to auscultation cardiac rate rhythm regular. Distal pulses intact Course Vital Signs Vital signs: Vital Signs Temperature 36.4 C L 05/21/25 08:28 Pulse 60 05/21/25 08:28 Respiratory Rate 16 05/21/25 08:28 Blood Pressure 136/79 05/21/25 08:28 Pulse Oximetry 95 05/21/25 08:28 Temperature 36.7 C 05/21/25 12:15 Temperature Source Tympanic 05/21/25 08:32 Pulse 84 05/21/25 12:15 Respiratory Rate 16 05/21/25 12:15 Blood Pressure 119/78 05/21/25 12:15 Blood Pressure Mean 98 05/21/25 11:18 Blood Pressure Position Sitting 05/21/25 08:32 Pulse Oximetry 100 05/21/25 12:15 Oxygen Delivery Method Room Air 05/21/25 08:32 Oxygen Flow Rate 0 05/21/25 08:32 Pain Level 0 05/21/25 12:15 Lab/Test Results Lab/Test Results: Laboratory Tests Range/Units 05/21/25 05/21/25 08:45 11:12 WBC (4.4-10.8) 10^3/uL 10.68 RBC (4.36-5.78) 10^6/uL 4.25 L Hgb (13.5-17.5) g/dL 13.0 L Hct (40.0-50.0) % 38.1 L MCV (80-95) fL 90 MCH (27.0-33.0) pg 30.6 MCHC (32.0-36.0) % 34.1 RDW (11.8-14.1) % 14.1 Plt Count (130-400) 10^3/uL 281 MPV (8.0-11.0) fL 9.2 Immature Gran % % 0.3 Neutrophils % % 69.8 Lymphocytes % % 20.8 Monocytes % % 7.4 Eosinophils % % 1.1 Basophils % % 0.6 Nucleated RBC % (0.0-0.3) % 0.0 Absolute Neutrophils (1.2-6.7) 10^3/uL 7.46 H Absolute Lymphocytes (1.2-3.4) 10^3/uL 2.22 Absolute Monocytes (0.1-0.8) 10^3/uL 0.79 Absolute Eosinophils (0.0-0.7) 10^3/uL 0.12 Absolute Basophils (0.0-0.2) 10^3/uL 0.06 VBG Lactate (<or=2.0) mmol/L 0.7 Sodium (136-145) mmol/L 137 Potassium (3.5-5.1) mmol/L 4.2 Chloride (98-107) mmol/L 103 Carbon Dioxide (21.0-32.0) mmol/L 27.0 Anion Gap (3-11) mmol/L 7.0 BUN (7-18) mg/dL 14 Creatinine (0.70-1.30) mg/dL 1.1 Est GFR (CKD-EPI 2020) (mL/min/1.73m2) 76.85 Glucose (74-106) mg/dL 106 Calcium (8.5-10.1) mg/dL 8.9 Magnesium (1.8-2.4) mg/dL 2.0 Total Bilirubin (0.2-1.0) mg/dL 0.2 AST (15-37) U/L 16 ALT (16-63) U/L 17 Alkaline Phosphatase (46-116) U/L 78 Troponin I (<or=76) ng/L 9 7 Total Protein (6.4-8.2) g/dL 7.2 Albumin (3.4-5.0) g/dL 3.5 Urine Color (Yellow) Yellow Urine Clarity (Clear) Clear Urine pH (5-8) 6.0 Ur Specific Petal (1.005-1.025) <= 1.005 Urine Protein (Neg-Trace) mg/dL Negative Urine Ketones (Negative) mg/dL Negative Urine Blood (Negative) Negative Urine Nitrite (Negative) Negative Urine Bilirubin (Negative) Negative Urine Urobilinogen (Up to 0.2) mg/dL 0.2 Ur Leukocyte Esterase (Negative) Negative Urine Glucose (Negative) mg/dL Negative Medical Decision Making Alert oriented 59-year-old male in no acute distress. CT abdomen pelvis with contrast was ordered for further evaluation does not show acute abnormality per radiology interpretation of my review I did spend approximately 5 minutes reviewing patient's prior CT scan and procedure notes CBC CMP and urinalysis do not show evidence of acute abnormality Case was discussed with Dr. Dickens as he is evaluated this patient in the past and aside from a lactate does not have any additional recommendations at this time Lactate is 0.7 within normal limits patient is in no acute distress he does have evidence of increased stool volume on CT scan and has stopped taking his Metamucil daily He will be given several tabs of senna and encouraged to restart his Metamucil Should his pain persist or worsen he is encouraged to return to the emergency department for reassessment he has no does not have an acute abdomen at time of my assessment [facility] All Active Problems (Updated 05/21/25 @ 11:55 by MADELEINE Acharya) Increased stool volume (Acute) Abdominal pain (Acute) Colostomy in place (Chronic) Open wound anterior abdominal wall (Acute) Oral thrush (Acute) Fall (on)(from) incline, initial encounter (Acute) Weakness acquired in ICU (Acute) Leukocytosis (leucocytosis) (Acute) Open abdominal wall wound (Acute) Fall (Acute) History of anticoagulant use (Acute) COPD (chronic obstructive pulmonary disease) (Chronic) History of [place] (myocardial infarction) (Acute) History of stroke (Acute) Perforation of sigmoid colon due to diverticulitis (Acute) Diverticulitis of colon with perforation (Acute) Tubular adenoma of colon (Acute) Unstable angina (Acute) Presented with 5/10 chest pain. Pain relieved with three nitroglycerins, then placed on a nitroglycerin drip, heaprin, as well as loaded with aspirin and Plavis. Transferred to [facility] [place] for further therapy. CAD (coronary artery disease) (Chronic 10/17/13) S/P [place] x 2 in 2002. S/P PCI and stent procedures for total of six stents in the intervening 11 years. MPI at [facility] in 06/15/13, negative for ischemia. Cardiac cath in fall showed no flow-limiting lesions; no further intervention. Chest pain (Acute) newly diagnosed with Afib. Goes in and out of afib Right sided weakness (Acute) Atrial fibrillation (Chronic) Medical History Hypotension Kidney malignancy Pulmonary nodules Stroke Abscess of abdominal cavity Laceration of finger of left hand Trigger thumb, left thumb Headache Diverticulitis Trigger finger, right middle finger Trigger finger, right index finger Erectile disorder, acquired, generalized, severe Acute epididymo-orchitis Muscle wasting and atrophy, not elsewhere classified, other site Olecranon bursitis of right elbow Superficial foreign body of right elbow Right elbow pain Recurrent bilateral inguinal hernia Penile pain Inguinal hernia Spermatocele Lipoma of back Duodenal ulcer Diverticulosis Occipital headache Tubular adenoma of colon (08/03/17) Renal cell carcinoma of left kidney (10/01/16) Ischemic stroke 2017 Hx of adenomatous polyp of colon Esophagitis Tobacco use Back pain, chronic Dysesthesia History of kidney cancer Gastritis Dyspepsia Anemia Dyslipidemia Hemiplegia Sleep apnea Depression with anxiety Dizziness Surgical History Hx of exploratory laparotomy (~08/2024) sigmoid resection, diverting colostomy Trigger finger, right ring finger S/P Release: 01/05/2022 Trigger finger, left middle finger S/P Release: 01/05/2022 History of back surgery partial fusion Hx of carpal tunnel repair R side Bilateral carpal tunnel syndrome S/P B/L ECTR: 11/25/2020 Hx of tonsillectomy History of hernia repair Olecranon bone spur s/p debridement on 07/27/2019. R elbow Hx of appendectomy History of loop recorder placed a couple months ago per pt 2019 under left chest. History of radiofrequency ablation procedure for cardiac arrhythmia cardiac cath 2014, 9 stents over the years since 2002. Jul or Aug was last stent put in per pt. Partial Nephrectomy left side for renal cell cancer. Has yearly CT scan. 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 EGD - MAC (08/03/17) Colonoscopy - MAC (08/03/17) 10/2021 - repeat in 5 years. Social History Smoking/Tobacco Use Status: Current every day Tobacco Type: cigarettes Smoking packs per day: 1 Smoking cigarettes per day: 20.0 Years smoked: 47 Smoking pack-years: 47.00 Tobacco: How many years used: 47 Smoking risk assessment performed?: Yes Alcohol Intake: current Alcohol Intake frequency: a few times a month Alcohol type: beer Drug use: Never Substance use type: does not use Household members: spouse and children Housing: house Number of Children: 1 Pets and animals: Yes Pets and animals: cat(s) and dog(s) Current gender identity: male What is your relationship status?: Panel score (0-1 are the most socially isolated patients): 1 What type of physical activity do you participate in: none Seatbelt use: sometimes Do you feel safe at home: Yes Do you feel safe in your relationship?: Yes
== END 2025-05-21 12:24 | disposition home or self-care (01) ==
PROVIDERS: Emergency Provider Physician Assistant; PCP Family Medicine
DX: R10.31 Right lower quadrant pain (principal); R19.5 Other fecal abnormalities; Z93.3 Colostomy status
CPT/HCPCS: 36415; 80053; 93005; 96365; 99285; 74177; 81003; 83605; 83735; 84484; 85025; 93010; 99284; J0131; J3490